=== PATIENT | female | born 1950 | race Caucasian/White ===

== ENCOUNTER 2021-04-21 20:48 | Emergency (ER) | payer MEDICARE, SELFPAY ==
[2021-04-21 20:49] VITALS: BP 175/107; PULSE 85; RESP 20; TEMP 36.6; O2SAT 97; BMI 30.9
[2021-04-21 20:50] VITALS: BP 175/107; PULSE 85; RESP 20; TEMP 36.6; O2SAT 97
[2021-04-21 21:50] VITALS: BP 175/107; PULSE 85; RESP 20; TEMP 36.6; O2SAT 97
--- NOTE | 2021-04-21 21:56 | EKG12_ITS ---
Test Reason : DYSRHYTHMIA Blood Pressure : / mmHG Vent. Rate : 076 BPM Atrial Rate : 076 BPM P-R Int : 160 ms QRS Dur : 128 ms QT Int : 412 ms P-R-T Axes : 059 -31 011 degrees QTc Int : 463 ms Normal sinus rhythm Left axis deviation Right bundle branch block Abnormal ECG Confirmed by JR CARRANZA, LAURENT ([id number]), manuscript editor AYSHA FALK ([id number]) on 04/24/2021 1:39:06 PM Referred By: SHOLA Confirmed By:HCARLES NORRIS MD
--- NOTE | 2021-04-21 22:10 | CT_ITS ---
We are attempting to reach an attending provider to discuss findings. An addendum with communication details will be sent when the communication is complete. STUDY: CT BRAIN WITHOUT CONTRAST REASON FOR EXAM: Female, 70 years old. Stroke RADIATION DOSAGE (If Supplied By Facility): CTDIvol = ( 44.99 ) mGy, DLP = ( 779.24 ) mGycm TECHNIQUE: Transaxial CT imaging of the brain was performed without administration of intravenous contrast material. Individualized dose optimization techniques were used for this CT. COMPARISON: 03/23/2016 FINDINGS: Normal soft tissue structures. Normal calvarium. Normal size ventricles and extra-axial spaces for the patient''s age. Normal white matter tracts of the cerebral hemispheres. Normal basal ganglia and thalami. Normal brainstem. Normal cerebellum. There is no intracranial hemorrhage. There are no findings of an acute ischemic infarction. Normal visualized paranasal sinuses. CT/Brain/Head without Contrast IMPRESSION: No intracranial acute abnormal finding. Electronically Signed: Jewel Chadwick MD at 22:35 EDT Tel , Service support ,
[2021-04-21 22:12] LABS: Absolute Lymphocyte Count 3.11 X10^3/uL (0.83-4.51); Absolute Neutrophil Count 2.6 X10^3/uL (2.0-7.7); Basophil# 0.04 X10^3/uL; Basophil% 0.6 % (0-1); Eosinophil# 0.19 X10^3/uL; Eosinophils% 2.9 % (0-5); Hematocrit 39.3 % (37-47); Hemoglobin 12.3 g/dL (12.0-15.0); Lymphocyte # 3.11 X10^3/ul (0.83-4.51); Lymphocyte % 46.8 % (19-41); Mean Corp Hgb Conc 31.3 g/dL (32-36); Mean Corpuscular Hgb 28.4 pg (27.0-32.0); Mean Corpuscular Volume 90.8 fL (81-99); Mean Platelet Vol. 11.4 fl (6.2-12.0); Monocyte% 10.5 % (0-10); NRBC Flagged by Analyzer 0 % (0-5); Neutrophil # 2.58 X10^3/uL (2.7-7.7); Neutrophil % 38.7 % (47-70); Platelet Count 225 K/mm3 (150-450); RBC Distribution Width CV 13.2 % (11.6-14.6); RBC Distribution Width SD 43.8 fl (35.1-43.9); Red Blood Count 4.33 M/mm3 (4.2-5.4); White Blood Count 6.7 K/mm3 (4.4-11.0)
[2021-04-21 22:26] LABS: ALB/GLOB Ratio 0.9 RATIO (0.9-2.4); AST(SGOT) 62 U/L (15-37); Alanine Aminotransfer ALT/SGPT 75 U/L (13-56); Albumin, Serum 3.7 g/dL (3.2-5.0); Alkaline Phosphatase 85 U/L (45-117); Anion Gap 5 (5-15); BUN 19 mg/dL (7-18); BUN/Creat Ratio 24.4 RATIO (10-20); Calcium,Total 9.1 mg/dL (8.5-10.1); Chloride 107 mmol/L (98-107); Creatinine, Serum 0.78 mg/dL (0.55-1.02); EST Glomerular Filtration Rate 78 mL/min (>60); Est Glom Filt Rate - Afr Amer 94 mL/min (>60); Globulin 4.1 g/dL (2.2-4.2); Glucose 127 mg/dL (74-106); Potassium 3.9 mmol/L (3.5-5.1); Protein, Total 7.8 g/dL (6.4-8.2); Sodium Level 140 mmol/L (136-145)
[2021-04-21 22:35] LABS: Bacteria 0 SEEN /hpf (None Seen); Mucous, Urine 0 SEEN /hpf (<or=2+); Red Blood Cells-Urine 0 SEEN /hpf (0-5)
[2021-04-21 22:36] LABS: Color, Urine Yellow (Yellow); Glucose, Dipstick Normal (Normal); Ketone-Dipstick Negative (Negative); Leukocyte Esterase-Dipstick 25 /ul (Negative); Nitrite-Dipstick Negative (Negative); Occult Blood-Urine Negative /ul (Negative); Protein-Dipstick Negative (Negative); Specific Gravity, Urine 1.015 (1.002-1.030); Urine Bilirubin Dipstick Negative (Negative); Urine Clarity Clear (Clear); Urine Urobilinogen Normal (Normal)
[2021-04-21 22:43] LABS: Squamous Epithelial Cells - UA 0-5 SEEN /hpf (5-10); White Blood Cells 0-5 SEEN /hpf (0-5)
--- NOTE | 2021-04-21 23:57 | EDS_ITS ---
HPI History of Present Illness Chief Complaint: Numb/Ting Informant: patient Onset/Context/Timing Onset: Today Context: Sudden Onset Timing: Intermittent and Lasts (5 to 10 minutes) Quality: Tingling Location: Left upper extremity Worsened by: Nothing Relieved by: Nothing Narrative Narrative: Patient presents with numbness and tingling to her left arm that began today. Patient is concerned that this could be coming from a possible stroke. Patient denies any weakness. Patient states the tingling only lasted proxy 5 to 10 minutes. Patient states nothing made it better nothing made it worse. Patient states she had similar symptoms 2 weeks ago and her symptoms la sted approximately 15 to 20 minutes at that time. Patient denies any headache. Patient does admit to some mild chest pain. [facility] Medical History (Updated 04/22/21 @ 00:[address] Barry Arevalo DO) Overactive bladder Home Medications ascorbic acid (vitamin C) [C-1000] 1,000 mg PO DAILY 08/22/15 [History Last Taken Unknown] multivitamin [Daily Multiple] 1 ea PO DAILY 08/22/15 [History Last Taken Unknown] oxybutynin chloride 5 mg PO DAILY 08/22/15 [History Last Taken Unknown] sertraline 50 mg PO DAILY 08/22/15 [History Last Taken Unknown] vitamin B complex 1 ea PO DAILY 08/22/15 [History Last Taken Unknown] cholecalciferol (vitamin D3) [Vitamin D] 2,000 unit PO DAILY 03/23/16 [History Last Taken Unknown] propranolol 20 mg PO BID 04/21/21 [History Last Taken Unknown] Allergy/AdvReac Type Severity Reaction Status Date / Time codeine Allergy Other Verified 04/21/21 20:51 Penicillins Allergy Itching Verified 04/21/21 20:51 Cuxxbub-Tam-Vqc Reductase Allergy Unknown Verified 04/21/21 20:51 Inhibitor Sulfa (Sulfonamide Allergy Itching Verified 04/21/21 20:51 Antibiotics) Surgical History (Updated 04/22/21 @ 00:[address] Barry Arevalo DO) H/O: hysterectomy History of bladder suspension procedure Social History Smoking Status: Never smoker ROS ROS ED Constitutional Constitutional ED: Denies chills or fever(s) Eyes Eyes: Denies blurry vision or change in vision ENT ENT ED: Denies rhinorrhea or sore throat Cardiovascular Cardiovascular: Reports chest pain; Denies palpitations Respiratory/Chest Respiratory/Chest: Denies cough or dyspnea Gastrointestinal Gastrointestinal: Denies nausea or vomiting Genitourinary Genitourinary ED: Denies dysuria or hematuria Musculoskeletal Musculoskeletal: Denies back pain or neck pain Integumentary Denies abscess or rash Neurologic Neurologic: Reports paresthesias LUE; Denies headache(s) or weakness Allergic/Immunologic Allergic/Immunologic ED: Denies mouth swelling or urticaria EXAM Physical Exam Const Vital Signs: 04/21/21 20:49 04/21/21 20:50 04/21/21 21:50 Temperature 98 F 98 F 98 F Temperature Source Temporal Temporal Temporal Pulse Rate 85 85 85 Respiratory Rate 20 H 20 H 20 H Blood Pressure 175/107 H 175/107 H 175/107 H Blood Pressure Mean 129 129 129 Pulse Ox 97 97 97 Oxygen Delivery Method Room Air Room Air Room Air 04/22/21 00:06 Temperature Temperature Source Pulse Rate 84 Respiratory Rate 15 Blood Pressure 138/80 H Blood Pressure Mean Pulse Ox 99 Oxygen Delivery Method Positive well nourished and well developed General Appearance ED: well developed HEENT Reports moist mucous membranes Neck supple and no JVD Resp normal respiratory effort and clear to auscultation bilaterally Cardio regular rate, regular rhythm and no murmurs GI normal to inspection, nondistended, normoactive bowel sounds and non-tender Palpation: soft Extremity normal to inspection General Extremety ED: Negative for edema or tenderness General Extremity: Negative for edema Neuro oriented x3, CN's II-XII intact bilaterally and no sensory deficits noted Sensorium / Orientation: alert Motor Exam: strength 5/5 throughout Psych mental status grossly normal Skin no rashes or lesions noted MDM MDM MDM Narrative Medical decision making narrative: EKG was obtained. On my interpretation, showed normal sinus rhythm with a rate of 76. There is left axis deviation. There is a right bundle branch block pattern noted. This is new compared to previous EKG dated 03/23/2016. MS interval, QRS interval, QTc interval were all normal. [place] was normal. CBC and comprehensive metabolic profile was within normal limits. Urinalysis does not show any evidence of urinary tract infection. CT scan of the brain was obtained. There is no acute intracranial abnormality noted. This was interpreted by the radiologist and reviewed by myself. Patient was still asymptomatic on reevaluation. Patient has a NIH stroke scale of 0. I feel patient is safe to be discharged home. Patient was instructed to follow-up with her primary care physician in 5 to 7 days. Patient was instructed to continue with her MRI as an outpatient. Patient understood and was agreeable with the plan. All questions were answered. Lab Data Labs: Laboratory Results - last 24 hr 04/21/21 04/21/21 04/21/21 21:03 21:03 22:30 WBC 6.7 RBC 4.33 Hgb 12.3 Hct 39.3 MCV 90.8 MCH 28.4 MCHC 31.3 L RDW Std Deviation 43.8 RDW Coeff of Fercho 13.2 Plt Count 225 MPV 11.4 Immature Gran % (Auto) 0.500 Neut % (Auto) 38.7 L Lymph % (Auto) 46.8 H [place] % (Auto) 10.5 H Eos % (Auto) 2.9 Baso % (Auto) 0.6 Absolute Neuts (auto) 2.6 Absolute Lymphs (auto) 3.11 Nucleated RBC % 0 Sodium 140 Potassium 3.9 Chloride 107 Carbon Dioxide 28.0 Anion Gap 5 BUN 19 H Creatinine 0.78 Estim Creat Clear Calc 46.50 Est GFR (MDRD) Af Amer 94 Est GFR (MDRD) Non-Af 78 BUN/Creatinine Ratio 24.4 H Glucose 127 H Calcium 9.1 Total Bilirubin 0.20 AST 62 H ALT 75 H Alkaline Phosphatase 85 Total Protein 7.8 Albumin 3.7 Globulin 4.1 Albumin/Globulin Ratio 0.9 Urine Color Yellow Urine Clarity Clear Urine pH 6.0 Ur Specific [place] 1.015 Urine Protein Negative Urine Glucose (UA) Normal Urine Ketones Negative Urine Occult Blood Negative Urine Nitrite Negative Urine Bilirubin Negative Urine Urobilinogen Normal Ur Leukocyte Esterase 25 H Urine RBC 0 SEEN Urine WBC 0-5 SEEN Ur Squamous Epith Cells 0-5 SEEN Urine Bacteria 0 SEEN Urine Mucus 0 SEEN Radiography Diagnostic Testing: Radiology Impression Brain CT 04/21/21 22:10 IMPRESSION: No intracranial acute abnormal finding. Electronically Signed: Jewel Chadwick MD at 22:35 EDT Tel , Service support , ADDENDUM: 04/21/21 2300 IMPRESSION: No intracranial acute abnormal finding. N.B. : The above Results were Read Back by Jewel Chadwick MD to Barry Calderon- DO ROXANA, and understanding confirmed on 04/21/2021 22:52:51 (ET). Electronically Signed: Jewel Chadwick MD at 22:35 EDT Tel , Service support , EKG Initial EKG: Attestation: I personally reviewed and interpreted this EKG as follows: Interpretation: Sinus Rhythm (76), No Acute Injury Pattern and RBBB Comments: Left axis deviation Prior EKG tracings: available for review Prior: Changed (There is a new right bundle branch block compared to previous EKG dated 03/23/2016.) Discharge Plan Triage Chief Complaint: Numb/Ting ED Provider: Barry Arevalo Dx/Rx/DC Orders Clinical Impression: Arm paresthesia, left Instructions: ED Paraesthesias Prescriptions: No Action multivitamin [Daily Multiple] 1 EACH tablet 1 ea PO DAILY RF: 0 ascorbic acid (vitamin C) [C-1000] 1,000 MG tablet 1,000 mg PO DAILY RF: 0 oxybutynin chloride 5 MG tablet 5 mg PO DAILY RF: 0 sertraline 50 MG tablet 50 mg PO DAILY RF: 0 vitamin B complex 1 EACH capsule 1 ea PO DAILY RF: 0 cholecalciferol (vitamin D3) [Vitamin D3] 1,000 UNIT tablet 2,000 unit PO DAILY RF: 0 propranolol 20 mg tablet 20 mg PO BID RF: 0 Primary Care Provider: Eulalio Healy Referrals: Eulalio Healy MD [Primary Care Provider] - 3-5 Days Disposition Disposition: Home, Self Care Discharge Date/Time: 04/22/21 00:07
[2021-04-22 00:06] VITALS: BP 138/80; PULSE 84; RESP 15; O2SAT 99
== END 2021-04-22 00:07 | disposition home or self-care (01) ==
PROVIDERS: Emergency Provider Emergency Medicine; PCP Family Medicine
DX: R20.2 Paresthesia of skin (principal); I45.10 Unspecified right bundle-branch block; R07.9 Chest pain, unspecified; N32.81 Overactive bladder
CPT/HCPCS: 70450; 80053; 81001; 85025; 93005; 99284; A4216

== ENCOUNTER 2022-03-29 08:58 | Emergency (ER) | payer MEDICARE, SELFPAY ==
[2022-03-29 08:59] VITALS: BP 199/90; PULSE 72; RESP 12; TEMP 35.7; O2SAT 94; BMI 33.5
--- NOTE | 2022-03-29 09:00 | ED.RN ---
per Dr. Arevalo do not call stroke alert.
[2022-03-29 09:01] VITALS: BMI 33.5
--- NOTE | 2022-03-29 09:18 | EX.ED.DYSGE1 ---
HPI History of Present Illness Chief Complaint: Neuro S/Sx Informant: patient Onset/Context/Timing Onset: Today (Approximately 90 minutes prior to arrival) Context: Sudden Onset Timing: Continuous Quality: Tingling Location: Right upper and lower extremities Worsened by: Nothing Relieved by: Nothing Narrative Narrative: Patient presents with numbness and tingling that began approximately 90 minutes prior to arrival. Patient states it starts in her right upper extremity but also goes into her right lower extremity. Patient denies any weakness. Patient denies any visual changes. Patient denies any difficulty breathing or difficulty swallowing. Patient states nothing makes it better and nothing makes it worse. Patient denies any headaches. Patient denies any nausea or vomiting. [facility] Medical History Overactive bladder Home Medications ascorbic acid (vitamin C) 1,000 mg tablet (C-1000) 1,000 mg PO DAILY 08/22/15 [History Last Taken Unknown] multivitamin (Daily Multiple tablet) 1 ea PO DAILY 08/22/15 [History Last Taken Unknown] oxybutynin chloride 5 mg tablet 5 mg PO DAILY 08/22/15 [History Last Taken Unknown] sertraline 50 mg tablet 50 mg PO DAILY 08/22/15 [History Last Taken Unknown] vitamin B complex 1 ea PO DAILY 08/22/15 [History Last Taken Unknown] cholecalciferol (vitamin D3) 25 mcg (1,000 unit) tablet (Vitamin D3) 2,000 unit PO DAILY 03/23/16 [History Last Taken Unknown] propranolol 20 mg tablet 20 mg PO BID 04/21/21 [History Last Taken Unknown] Allergy/AdvReac Type Severity Reaction Status Date / Time codeine Allergy Other Verified 04/21/21 20:51 Penicillins Allergy Itching Verified 04/21/21 20:51 Bzerudw-RYU-MdQ Reductase Allergy Unknown Verified 04/21/21 20:51 Inhibitor [Cvxajvh-Uhe-Jdo Reductase Inhibitor] Sulfa (Sulfonamide Allergy Itching Verified 04/21/21 20:51 Antibiotics) Surgical History H/O: hysterectomy History of bladder suspension procedure Social History Smoking Status: Never smoker ROS ROS ED Constitutional Constitutional ED: Denies chills or fever(s) Eyes Eyes: Denies blurry vision or change in vision ENT ENT ED: Denies rhinorrhea or sore throat Cardiovascular Cardiovascular: Denies chest pain or palpitations Respiratory/Chest Respiratory/Chest: Denies cough or dyspnea Gastrointestinal Gastrointestinal: Denies nausea or vomiting Genitourinary Genitourinary ED: Denies dysuria or hematuria Musculoskeletal Musculoskeletal: Denies back pain or neck pain Integumentary Denies abscess or rash Neurologic Neurologic: Reports paresthesias; Denies headache(s) or weakness Allergic/Immunologic Allergic/Immunologic ED: Denies mouth swelling or urticaria EXAM Physical Exam Const Vital Signs: 03/29/22 08:59 Temperature 96.2 F L Temperature Source Temporal Pulse Rate 72 Respiratory Rate 12 Blood Pressure 199/90 H Blood Pressure Mean 126 Pulse Ox 94 Oxygen Delivery Method Room Air Positive well nourished and well developed General Appearance ED: well developed HEENT Reports moist mucous membranes Neck supple and no JVD Resp normal respiratory effort and clear to auscultation bilaterally Cardio regular rate, regular rhythm and no murmurs GI normal to inspection, nondistended, normoactive bowel sounds and non-tender Palpation: soft Extremity normal to inspection General Extremety ED: Negative for edema or tenderness General Extremity: Negative for edema Neuro oriented x3, CN's II-XII intact bilaterally and no sensory deficits noted Sensorium / Orientation: alert Motor Exam: strength 5/5 throughout Psych mental status grossly normal Skin no rashes or lesions noted MDM MDM MDM Narrative Medical decision making narrative: EKG was obtained. On my interpretation, it showed a normal sinus rhythm with a rate of 66. [place] interval and QTc intervals were normal. QRS interval was slightly prolonged at 128 ms. There is a right bundle branch block pattern noted. [place] was normal. There are no acute ST or T wave changes. CT scan of the brain was obtained. There is no acute intracranial abnormality. This was interpreted by the radiologist and reviewed by myself. CBC was within normal limits. PT with INR and PTT were within normal limits. Comprehensive metabolic profile was essentially within normal limits. Urinalysis does not show any evidence of urinary tract infection. 5. 2-hour repeat high-sensitivity troponin was normal at 4. Patient was advised of the findings. Patient was instructed to follow-up with her primary care physician in 3 to 5 days. Patient understood and was agreeable with the plan. All questions were answered. Lab Data Attestation: I reviewed the patient's lab results. Labs: Laboratory Results - last 24 hr 03/29/22 03/29/22 03/29/22 09:00 09:00 09:00 WBC 6.5 RBC 4.48 Hgb 12.9 Hct 40.4 MCV 90.2 MCH 28.8 MCHC 31.9 L RDW Std Deviation 42.5 RDW Coeff of Fercho 13.0 Plt Count 234 MPV 10.9 Immature Gran % (Auto) 0.500 Neut % (Auto) 38.5 L Lymph % (Auto) 46.8 H [place] % (Auto) 10.1 H Eos % (Auto) 3.2 Baso % (Auto) 0.9 Absolute Neuts (auto) 2.5 Absolute Lymphs (auto) 3.06 Nucleated RBC % 0 PT 13.3 INR 1.0 APTT 34.7 Sodium 138 Potassium 4.1 Chloride 104 Carbon Dioxide 32.0 Anion Gap 2 L BUN 16 Creatinine 0.72 Estim Creat Clear Calc 45.85 Est GFR (MDRD) Af Amer 104 Est GFR (MDRD) Non-Af 86 BUN/Creatinine Ratio 22.3 H Glucose 121 H Calcium 9.8 Total Bilirubin 0.50 AST 58 H ALT 67 H Alkaline Phosphatase 81 Troponin I High Sens 5 Total Protein 8.0 Albumin 3.7 Globulin 4.3 H Albumin/Globulin Ratio 0.9 Urine Color Urine Clarity Urine pH Ur Specific [place] Urine Protein Urine Glucose (UA) Urine Ketones Urine Occult Blood Urine Nitrite Urine Bilirubin Urine Urobilinogen Ur Leukocyte Esterase Urine RBC Urine WBC Ur Squamous Epith Cells Urine Bacteria Urine Mucus POC Glucose 03/29/22 03/29/22 03/29/22 09:05 09:38 12:05 WBC RBC Hgb Hct MCV MCH MCHC RDW Std Deviation RDW Coeff of Fercho Plt Count MPV Immature Gran % (Auto) Neut % (Auto) Lymph % (Auto) [place] % (Auto) Eos % (Auto) Baso % (Auto) Absolute Neuts (auto) Absolute Lymphs (auto) Nucleated RBC % PT INR APTT Sodium Potassium Chloride Carbon Dioxide Anion Gap BUN Creatinine Estim Creat Clear Calc Est GFR (MDRD) Af Amer Est GFR (MDRD) Non-Af BUN/Creatinine Ratio Glucose Calcium Total Bilirubin AST ALT Alkaline Phosphatase Troponin I High Sens 4 Total Protein Albumin Globulin Albumin/Globulin Ratio Urine Color Yellow Urine Clarity Clear Urine pH 6.5 Ur Specific [place] 1.010 Urine Protein Negative Urine Glucose (UA) Normal Urine Ketones Negative Urine Occult Blood Negative Urine Nitrite Negative Urine Bilirubin Negative Urine Urobilinogen Normal Ur Leukocyte Esterase 25 H Urine RBC 0 SEEN Urine WBC 0-5 SEEN Ur Squamous Epith Cells 0-5 SEEN Urine Bacteria 0 SEEN Urine Mucus 0 SEEN POC Glucose 118 H Radiography Diagnostic Testing: Clinical Impression(s) from Imaging Studies Brain CT 03/29/22 10:12 IMPRESSION: Normal unenhanced CT scan of the brain. Electronically Signed: Dejan Garcia MD at 10:30 EDT , EKG Initial EKG: Attestation: I personally reviewed and interpreted this EKG as follows: Interpretation: Sinus Rhythm (66) and RBBB Prior EKG tracings: available for review Prior: Unchanged (04/21/2021) Discharge Plan Triage Chief Complaint: Neuro S/Sx ED Provider: Barry Arevalo Dx/Rx/DC Orders Clinical Impression: Arm paresthesia, right, Right leg paresthesias, HTN (hypertension) Instructions: ED Paraesthesias Prescriptions: No Action multivitamin [Daily Multiple] 1 EACH tablet 1 ea PO DAILY Label Comments: Supplement ascorbic acid (vitamin C) [C-1000] 1,000 MG tablet 1,000 mg PO DAILY Label Comments: Vitamin C supplement oxybutynin chloride 5 MG tablet 5 mg PO DAILY Label Comments: Urination sertraline 50 MG tablet 50 mg PO DAILY Label Comments: Depression/anxiety vitamin B complex 1 EACH capsule 1 ea PO DAILY Label Comments: Vitamin B supplement cholecalciferol (vitamin D3) [Vitamin D3] 1,000 UNIT tablet 2,000 unit PO DAILY propranolol 20 mg tablet 20 mg PO BID Label Comments: TAKE 1 TABLET BY MOUTH TWICE A DAY Primary Care Provider: Eulalio Healy Referrals: Eulalio Healy MD [Primary Care Provider] - 5-7 Days Disposition Disposition: Home, Self Care
--- NOTE | 2022-03-29 09:21 | EKG12_ITS ---
Test Reason : Neuro Blood Pressure : / mmHG Vent. Rate : 066 BPM Atrial Rate : 066 BPM P-R Int : 170 ms QRS Dur : 128 ms QT Int : 460 ms P-R-T Axes : 042 -28 001 degrees QTc Int : 482 ms Normal sinus rhythm Right bundle branch block Minimal voltage criteria for LVH, may be normal variant ( R in aVL ) Abnormal ECG Confirmed by JR CARRANZA, LAURENT ([id number]), editor in chief newspaper AYSHA FALK ([id number]) on 04/02/2022 11:22:04 AM Referred By: Irina Confirmed By:CHARLES NORRIS MD
[2022-03-29 09:25] LABS: Bedside Glucose 118 mg/dL (74-106)
[2022-03-29 09:33] LABS: Absolute Lymphocyte Count 3.06 X10^3/uL (0.83-4.51); Absolute Neutrophil Count 2.5 X10^3/uL (2.0-7.7); Basophil# 0.06 X10^3/uL; Basophil% 0.9 % (0-1); Eosinophil# 0.21 X10^3/uL; Eosinophils% 3.2 % (0-5); Hematocrit 40.4 % (37-47); Hemoglobin 12.9 g/dL (12.0-15.0); Lymphocyte # 3.06 X10^3/ul (0.83-4.51); Lymphocyte % 46.8 % (19-41); Mean Corp Hgb Conc 31.9 g/dL (32-36); Mean Corpuscular Hgb 28.8 pg (27.0-32.0); Mean Corpuscular Volume 90.2 fL (81-99); Mean Platelet Vol. 10.9 fl (6.2-12.0); Monocyte# 0.66 X10^3/uL; Monocyte% 10.1 % (0-10); NRBC Flagged by Analyzer 0 % (0-5); Neutrophil # 2.52 X10^3/uL (2.7-7.7); Neutrophil % 38.5 % (47-70); Platelet Count 234 K/mm3 (150-450); RBC Distribution Width SD 42.5 fl (35.1-43.9); Red Blood Count 4.48 M/mm3 (4.2-5.4); White Blood Count 6.5 K/mm3 (4.4-11.0)
[2022-03-29 09:41] LABS: Prothrombin Time (Protime)PT. 13.3 SECONDS (11.7-14.9)
[2022-03-29 09:42] LABS: Partial Thromboplast Time 34.7 Seconds (24.1-36.2)
[2022-03-29 09:51] LABS: Bacteria 0 SEEN /hpf (None Seen); Mucous, Urine 0 SEEN /hpf (<or=2+); Red Blood Cells-Urine 0 SEEN /hpf (0-5)
[2022-03-29 09:52] LABS: Color, Urine Yellow (Yellow); Glucose, Dipstick Normal (Normal); Ketone-Dipstick Negative (Negative); Leukocyte Esterase-Dipstick 25 /ul (Negative); Nitrite-Dipstick Negative (Negative); Occult Blood-Urine Negative /ul (Negative); Protein-Dipstick Negative (Negative); Urine Bilirubin Dipstick Negative (Negative); Urine Clarity Clear (Clear); Urine Urobilinogen Normal (Normal); Urine pH 6.5 (5.0 - 8.0)
[2022-03-29 09:54] LABS: ALB/GLOB Ratio 0.9 RATIO (0.9-2.4); AST(SGOT) 58 U/L (15-37); Alanine Aminotransfer ALT/SGPT 67 U/L (13-56); Albumin, Serum 3.7 g/dL (3.2-5.0); Alkaline Phosphatase 81 U/L (45-117); Anion Gap 2 (5-15); BUN 16 mg/dL (7-18); BUN/Creat Ratio 22.3 RATIO (10-20); Calcium,Total 9.8 mg/dL (8.5-10.1); Chloride 104 mmol/L (98-107); Creatinine, Serum 0.72 mg/dL (0.55-1.02); EST Glomerular Filtration Rate 86 mL/min (>60); Est Glom Filt Rate - Afr Amer 104 mL/min (>60); Estimated Creatinine Clearance 45.85 ml/min; Globulin 4.3 g/dL (2.2-4.2); Glucose 121 mg/dL (74-106); Potassium 4.1 mmol/L (3.5-5.1); Sodium Level 138 mmol/L (136-145); Troponin-I HS (w/2H Reflex) 5 pg/mL (3.0-54.0)
[2022-03-29 10:10] LABS: Squamous Epithelial Cells - UA 0-5 SEEN /hpf (5-10); White Blood Cells 0-5 SEEN /hpf (0-5)
--- NOTE | 2022-03-29 10:12 | CT_ITS ---
STUDY: CT BRAIN WITHOUT CONTRAST REASON FOR EXAM: Female, 71 years old. Numbness RADIATION DOSAGE (If Supplied By Facility): CTDIvol = ( 44.99 ) mGy, DLP = ( 796.11 ) mGycm TECHNIQUE: Transaxial CT imaging of the brain was performed without administration of intravenous contrast material. Individualized dose optimization techniques were used for this CT. COMPARISON: Comparison is made with prior study 04/21/2021. FINDINGS: Normal soft tissue structures. Normal calvarium. Normal size ventricles and extra-axial spaces for the patient''s age. Normal white matter tracts of the cerebral hemispheres. Normal basal ganglia and thalami. Normal brainstem. Normal cerebellum. There is no intracranial hemorrhage. There are no findings of an acute ischemic infarction. Normal visualized paranasal sinuses. CT/Brain/Head without Contrast IMPRESSION: Normal unenhanced CT scan of the brain. Electronically Signed: Dejan Garcia MD at 10:30 EDT ,
[2022-03-29 11:28] LABS: Reflex Troponin-HS? (from REC) Y
[2022-03-29 12:28] LABS: Troponin-I HS 4 pg/mL (3.0-54.0)
[2022-03-29 13:03] VITALS: BP 149/90; PULSE 78; RESP 16; O2SAT 97; O2SAT 98
== END 2022-03-29 13:06 | disposition home or self-care (01) ==
PROVIDERS: Emergency Provider Emergency Medicine; PCP Family Medicine; Visit Provider Emergency Medicine
DX: R20.2 Paresthesia of skin (principal); I10 Essential (primary) hypertension
CPT/HCPCS: 70450; 80053; 81001; 82962; 84484; 85025; 85610; 85730; 93005; 99284; A4216

== ENCOUNTER 2022-04-03 18:18 | Inpatient (IN) | payer MEDICARE, SELFPAY ==
[2022-04-03 18:37] VITALS: BP 134/71; PULSE 68; RESP 16; TEMP 37.1; O2SAT 96; BMI 32.9
[2022-04-03 19:14] VITALS: BP 130/66; PULSE 71; RESP 18; TEMP 36.8; O2SAT 95
[2022-04-03] MEDS: Senna/Docusate Sodium 1 Tablet 2 TABLET PO (21:41)
[2022-04-03] MEDS: Sertraline 50 MG Tablet 25 MG PO (21:41)
[2022-04-03] MEDS: Montelukast 10 MG Tablet PO (21:42)
[2022-04-03] MEDS: Atorvastatin Calcium 40 MG Tablet PO (21:43)
[2022-04-03] MEDS: Gabapentin 300 MG Capsule PO (21:45)
[2022-04-03 22:00] VITALS: PULSE 78; RESP 16; O2SAT 95
[2022-04-04 05:44] LABS: Absolute Lymphocyte Count 3.39 X10^3/uL (0.83-4.51); Absolute Neutrophil Count 2.9 X10^3/uL (2.0-7.7); Basophil# 0.04 X10^3/uL; Basophil% 0.5 % (0-1); Eosinophil# 0.19 X10^3/uL; Eosinophils% 2.6 % (0-5); Hematocrit 35.4 % (37-47); Hemoglobin 11.2 g/dL (12.0-15.0); Lymphocyte # 3.39 X10^3/ul (0.83-4.51); Lymphocyte % 46.1 % (19-41); Mean Corp Hgb Conc 31.6 g/dL (32-36); Mean Corpuscular Hgb 29.6 pg (27.0-32.0); Mean Corpuscular Volume 93.4 fL (81-99); Mean Platelet Vol. 10.4 fl (6.2-12.0); Monocyte# 0.77 X10^3/uL; Monocyte% 10.5 % (0-10); NRBC Flagged by Analyzer 0 % (0-5); Neutrophil # 2.94 X10^3/uL (2.7-7.7); Platelet Count 210 K/mm3 (150-450); RBC Distribution Width CV 12.9 % (11.6-14.6); RBC Distribution Width SD 43.8 fl (35.1-43.9); Red Blood Count 3.79 M/mm3 (4.2-5.4); White Blood Count 7.4 K/mm3 (4.4-11.0)
[2022-04-04 06:18] LABS: ALB/GLOB Ratio 0.8 RATIO (0.9-2.4); AST(SGOT) 53 U/L (15-37); Alanine Aminotransfer ALT/SGPT 62 U/L (13-56); Albumin, Serum 3.2 g/dL (3.2-5.0); Alkaline Phosphatase 76 U/L (45-117); Anion Gap 4 (5-15); BUN 19 mg/dL (7-18); BUN/Creat Ratio 24.3 RATIO (10-20); Calcium,Total 9.4 mg/dL (8.5-10.1); Chloride 105 mmol/L (98-107); Creatinine, Serum 0.78 mg/dL (0.55-1.02); EST Glomerular Filtration Rate 77 mL/min (>60); Est Glom Filt Rate - Afr Amer 94 mL/min (>60); Estimated Creatinine Clearance 45.85 ml/min; Globulin 3.9 g/dL (2.2-4.2); Glucose 121 mg/dL (74-106); Magnesium 2.1 mg/dL (1.6-2.6); Phosphorus 3.7 mg/dL (2.5-4.9); Protein, Total 7.1 g/dL (6.4-8.2); Sodium Level 139 mmol/L (136-145)
[2022-04-04] MEDS: Gabapentin 300 MG Capsule PO ×3 (06:24→21:31)
[2022-04-04 07:20] VITALS: O2SAT 94
[2022-04-04 07:53] VITALS: BP 140/54; PULSE 72; RESP 16; TEMP 36; O2SAT 95
[2022-04-04] MEDS: Fluticasone 0.05% 1 SPRAY NASAL.SRY 2 SPRAY NASAL (08:22)
[2022-04-04] MEDS: Ascorbic Acid 500 MG Tablet PO (08:24)
[2022-04-04] MEDS: Propranolol LA 60 MG Capsule 120 MG PO (08:24)
[2022-04-04] MEDS: Cholecalciferol (VIT D3) 25 MCG TABLET (1,000 UNITS) PO (08:24)
[2022-04-04] MEDS: Tolterodine Tartrate 4 MG CAP.SA PO (08:24)
[2022-04-04] MEDS: Multivitamins,Therapeutic Tablet 1 TABLET PO (08:24)
[2022-04-04] MEDS: Aspirin 81 MG TAB.CHEW PO (08:24)
[2022-04-04] MEDS: Senna/Docusate Sodium 1 Tablet 2 TABLET PO (08:25)
[2022-04-04] MEDS: amLODIPine 2.5 MG Tablet PO (08:25)
[2022-04-04] MEDS: Clopidogrel Bisulfate 75 MG Tablet PO (08:25)
[2022-04-04] MEDS: NYSTATIN 500,000 UNIT/5 ML UDC 500000 UNIT PO ×4 (08:26→21:32)
[2022-04-04] MEDS: Sertraline 50 MG Tablet 25 MG PO ×2 (08:30→21:30)
[2022-04-04] MEDS: Famotidine 20 MG Tablet 40 MG PO (08:32)
--- NOTE | 2022-04-04 09:21 | HP.PCM_ITS ---
[facility] - General General Date of Admission: 04/03/22 Date of Service: 04/04/22 Chief Complaint: Post Stroke debility. HPI Lynda MEDINA, is a 71 YO F with a PMH of hypertension, hyperlipidemia, bipolar 1 disorder, depression and obesity who presented to the [facility] ED on 03/29/2022 complaining of right side numbness in the right face, right arm and right leg. She denied weakness at that time. Noncontrast CT brain was normal. Lab was unremarkable and she was discharged home and instructed to follow-up with her primary care physician. The following morning she was having difficulty ambulating and had weakness in her right hand. She also had difficulty swallowing and felt as if her medications got stuck on the right side of her throat. She was seen at [facility] ED. NIHSS was 7. CTA of the head/neck and brain CT revealed 17% stenosis of the cervical right internal carotid artery and 33% stenosis of the cervical left internal carotid artery. Cervical vertebral arteries were patent. She had bilateral MCA, bilateral PROFESSIONAL SERVICES CONSULTANT and right PICA stenoses. Teleneurology was consulted and she was felt to be outside the window for tPA. She was admitted to the hospital and started on dual antiplatelet therapy. Significant lab included an elevated hemoglobin A1c at 6.3, elevated triglycerides at 356, low HDL at 33 and an LDL of 155. She has listed statins as an allergy due to rash. she was willing to try atorvastatin and was started on 40 mg on 03/31/22. She was evaluated by PT/OT/ST and admission to acute rehab was recommended. She was transferred to the acute rehab unit at [facility] on 04/03/2022 for 3 hours of therapy daily to restore function/independence at or near her level prior to the recent stroke. All lab from this AM was personally reviewed. Hemoglobin is 11.2 which is down from 12.9 on 03/29/2022. White blood cell count and platelets are within normal limits. Potassium is 4 and the sodium is within normal limits. The BUN is elevated at 19 with a creatinine of 0.78 which is stable. Estimated creatinine clearance is 45.85 and the GFR is 77. Transaminases are mildly increased with an AST of 53 and an ALT of 62 and this is chronic for her. Alk phos and total b ilirubin are within normal limits. Magnesium is 2.1 and the phosphorus is normal. ECHO report was not sent with the other paperwork from [place] so will request it. Tells me that she has not been able to exercise for the past year due to radicular pain in the LUE. She has not been doing any walking for exercise for the past 3 years. Has gained weight over the past year and her BP has not been controlled. [facility] Medical History (Updated 04/04/22 @ 12:[address] Bryanna Randall, ) Bipolar 1 disorder Depression GERD (gastroesophageal reflux disease) Hypertension Overactive bladder Radicular pain in left arm Home Medications ascorbic acid (vitamin C) 1,000 mg tablet (C-1000) 500 mg PO DAILY supplement 08/22/15 [History Last Taken Unknown] multivitamin (Daily Multiple tablet) 1 ea PO DAILY supplement 08/22/15 [History Last Taken Unknown] sertraline 50 mg tablet 25 mg PO BID treat depression 08/22/15 [History Last Taken Unknown] cholecalciferol (vitamin D3) 25 mcg (1,000 unit) tablet (Vitamin D3) 1,000 unit PO DAILY supplement 03/23/16 [History Last Taken Unknown] propranolol 20 mg tablet 120 mg PO DAILY HTN 04/21/21 [History Last Taken Unknown] acetaminophen 325 mg tablet (Tylenol) 1,000 mg PO Q6H PRN Pain (Scale Score 1- 10) 04/03/22 [History Last Taken Unknown] amlodipine 2.5 mg tablet (Norvasc) 2.5 mg DAILY high blood presuure 04/03/22 [History Last Taken Unknown] aspirin 81 mg tablet 81 mg PO DAILY anti-platelet 04/03/22 [History Last Taken Unknown] atorvastatin 40 mg tablet 40 mg PO DAILY HDL 04/03/22 [History Last Taken Unknown] clopidogrel 75 mg tablet 75 mg PO DAILY antiplatelet 04/03/22 [History Last Taken Unknown] coenzyme Q10 200 mg capsule (Co Q-10) 200 mg PO DAILY supplement 04/03/22 [History Last Taken Unknown] famotidine 40 mg tablet 40 mg PO DAILY GERD 04/03/22 [History Last Taken Unknown] fluticasone propionate 50 mcg/actuation nasal spray,suspension 2 spray intranasal DAILY allergy 04/03/22 [History Last Taken Unknown] gabapentin 300 mg tablet 300 mg PO TID nerve pain 04/03/22 [History Last Taken Unknown] montelukast 10 mg tablet (Singulair) 10 mg PO QHS asthma 04/03/22 [History Last Taken Unknown] tolterodine 4 mg capsule,extended release 24 hr (Detrol LA) 4 mg PO Q24H urinary retention 04/03/22 [History Last Taken Unknown] Allergy/AdvReac Type Severity Reaction Status Date / Time codeine Allergy Other Verified 04/21/21 20:51 Penicillins Allergy Itching Verified 04/21/21 20:51 Tzylpmf-JKE-CkM Reductase Allergy Unknown Verified 04/21/21 20:51 Inhibitor [Amokcfl-Dun-Jya Reductase Inhibitor] Sulfa (Sulfonamide Allergy Itching Verified 04/21/21 20:51 Antibiotics) Family History Mother Colon cancer CAD (coronary artery disease) Grandmother Diabetes Maternal grandmother CAD (coronary artery disease) Grandfather CAD (coronary artery disease) Father CAD (coronary artery disease) Hypertension Family History no significant family his Surgical History H/O: hysterectomy History of bladder suspension procedure Social History (Updated 04/04/22 @ 09:[address] Bryanna Randall DO) household members: spouse Smoking Status: Never smoker alcohol intake: never substance use type: does not use ROS Review of Systems ROS Unobtainable: Denies due to encephalopathy, due to endotracheal tube, due to mental condition or due to mental status Constitutional Constitutional: Reports change in weight and weight gain; Denies anorexia, chills, fatigue, fever(s), night sweats or weakness Eyes Eyes: Denies blurry vision, change in vision, eye pain or loss of vision ENT HEENT: Reports dysphagia; Denies abnormal hearing, headache(s), hearing loss, nasal congestion or sore throat Cardiovascular Cardiovascular: Denies chest pain, dyspnea on exertion, edema, lightheadedness, orthopnea, palpitations, paroxysmal nocturnal dyspnea or syncope Respiratory/Chest Respiratory/Chest: Denies cough, dyspnea, shortness of breath at rest, shortness of breath with exertion or wheezing Gastrointestinal Gastrointestinal: Reports constipation; Denies abdominal pain, diarrhea, dy spepsia, hematemesis, hematochezia, nausea or vomiting Genitourinary Genitourinary: Reports other Details: She sometimes leaks a little. ; Denies dysuria, hematuria, nocturia, urinary frequency, urinary hesitancy, urinary incontinence or urinary urgency Musculoskeletal Musculoskeletal: Denies back pain, joint pain, joint swelling or neck pain Integumentary Integumentary: Denies jaundice, pruritus, rash or wounds Neurologic Neurologic: Reports abnormal gait, disequilibrium, focal weakness and par esthesias; Denies abnormal speech, confusion, dizziness, headache(s), seizures or tremor(s) Psychiatric Psychiatric: Denies anxiety, depression, homicidal ideation or suicidal ideation Endocrine Endocrinology: Denies change in body appearance, polydipsia or polyuria Hematologic/Lymphatic Hematologic/Lymphatic: Denies easy bleeding, easy bruising or lymphadenopathy Allergic/Immunologic Allergic/Immunologic: Denies rhinitis, eczemia or asthma Vital Signs Vital Signs Vital Signs: 04/03/22 18:37 04/03/22 19:14 04/03/22 22:00 Temperature 98.7 F 98.2 F Temperature Source Oral Temporal Pulse Rate 68 71 78 Respiratory Rate 16 18 16 Respiratory Effort Normal Non-Labored Respiratory Depth Normal Respiratory Pattern Normal Blood Pressure 134/71 H 130/66 H Blood Pressure Mean 92 87 Blood Pressure Source Monitor Monitor Blood Pressure Position Sitting Sitting Blood Pressure Location Right Arm Right Arm Pulse Ox 96 95 95 Oxygen Delivery Method Room Air Room Air Room Air 04/04/22 07:53 Temperature 96.8 F L Temperature Source Temporal Pulse Rate 72 Respiratory Rate 16 Respiratory Effort Respiratory Depth Respiratory Pattern Blood Pressure 140/54 H Blood Pressure Mean 82 Blood Pressure Source Monitor Blood Pressure Position Semi-Fowlers Blood Pressure Location Right Arm Pulse Ox 95 Oxygen Delivery Method Room Air Weight Weight: 191 lb 2.252 oz Body Mass Index (BMI) 32.9 Indicators for Scoring Admitted with or Primary Diagnosis of CVA/Stroke: Yes Hx of CVA/Stroke: Yes Modified [place] Score MRS Score at time of Evaluation: 3-Moderate disability NIHSS NIHSS 1a. Level of Consciousness: Alert; keenly responsive 1b. LOC Questions: Answers BOTH questions correctly. 1c. LOC Commands: Performs both tasks correctly. 2. Best Gaze: Normal 3. Visual: No visual loss 4. Facial Palsy: Minor paralysis (flattened nasolabial fold, asymmetry on smiling) 5a. Left Arm: No drift; arm holds 90 (or 45) degrees for full 10 seconds 5b. Right Arm: Drift; arm drifts downward but doesn?t hit the bed 6a. Left Leg: No drift; leg holds 30-degree position for full 5 seconds 6b. Right Leg: Drift; leg falls by the end of 5-seconds, but does not hit bed 7. Limb Ataxia: Absent 8. Sensory: [id number]-[id number] sensory loss; 9. Best Language: No aphasia; normal 10. Dysarthria: Normal 11. Extinction and Inattention: Visual, tactile, auditory, spatial, or personal inattention Total: 5 Stroke Questions Stroke Team Activated: No (She was at another facility when she had the stroke. She is now in rehab) Physical Exam Const alert, oriented x3, no apparent distress and well nourished Constitutional Narrative: sitting in the recliner at the bedside. General Appearance: cooperative and well developed HEENT normocephalic and head/scalp atraumatic Eyes PERRL and EOMs intact bilaterally Eyes Narrative: She has mild ptosis of the R upper lid which is new since the Stroke Neck supple, no JVD, No nodes and no carotid bruits General: trachea midline Resp normal respiratory effort, normal air movement and clear to auscultation bilaterally Resp Narrative: No conversational dyspnea. Effort and Inspection: Negative for tachypneic or respiratory distress Cardio regular rate, regular rhythm, S1 normal heart sound, S2 normal heart sound, no murmurs, no rub and no gallops Cardio Narrative: No ectopy GI normal to inspection, nondistended, normoactive bowel sounds, soft to palpation and non-tender GI Narrative: Obese, no guarding with palpation. Extremity Extremity Narrative: No calf tenderness. Dorsalis pedis pulses are 2+ bilaterally and sore the radial pulses. General Extremity: Negative for clubbing, cyanosis or edema Skin no rashes or lesions noted, no wounds and no jaundice General Skin Exam: no breakdown Neuro Neuro Narrative: She has mild right facial droop and mild ptosis of the right upper eyelid. She has weakness of the right face, right upper extremity and right lower extremity. No limb ataxia. She is alert and oriented x3 with no dysarthria. Thought process seems normal. Please see NIHSS scoring Psych thought process normal, cooperative and affect normal Appearance: appropriate Thought Content: No suicidality and No homicidality Results Lab / Micro Data Result Diagrams: 04/04/22 05:36 04/04/22 05:36 Labs: Laboratory Results - last 24 hr 04/04/22 05:36: WBC 7.4, RBC 3.79 L, Hgb 11.2 L, Hct 35.4 L, MCV 93.4, MCH 29.6, MCHC 31.6 L, RDW Std Deviation 43.8, RDW Coeff of Fercho 12.9, Plt Count 210, MPV 10.4, Immature Gran % (Auto) 0.300, Neut % (Auto) 40.0 L, Lymph % (Auto) 46.1 H, [place] % (Auto) 10.5 H, Eos % (Auto) 2.6, Baso % (Auto) 0.5, Absolute Neuts (auto) 2.9, Absolute Lymphs (auto) 3.39, Nucleated RBC % 0 04/04/22 05:36: Sodium 139, Potassium 4.0, Chloride 105, Carbon Dioxide 30.0, Anion Gap 4 L, BUN 19 H, Creatinine 0.78, Estim Creat Clear Calc 45.85, Est GFR (MDRD) Af Amer 94, Est GFR (MDRD) Non-Af 77, BUN/Creatinine Ratio 24.3 H, Glucose 121 H, Calcium 9.4, Phosphorus 3.7, Magnesium 2.1, Total Bilirubin 0.30, AST 53 H, ALT 62 H, Alkaline Phosphatase 76, Total Protein 7.1, Albumin 3.2, Globulin 3.9, Albumin/Globulin Ratio 0.8 L Assessment & Plan Assessment/Plan (1) Physical debility: PLAN: PT/OT/ST evaluations/therapy (2) Ischemic cerebrovascular accident (CVA): PLAN: Educated today on the goals for BP control and lipid control. Will consult the feather mixer for education in salt restriction, weight loss, consistent carbohydrate intake and low-fat diet. (3) Cerebrovascular disease: PLAN: She has multiple areas of atherosclerosis in the cerebral circulation. There is a strong FH of heart disease. Will recommend at [place] that she have a pharmacologic nuclear stress test in the next few months. (4) Right hemiparesis: (5) Facial droop due to acute cerebrovascular accident (CVA): (6) Right leg paresthesias: (7) Arm paresthesia, right: (8) Prediabetes: (9) Abnormal transaminases: (10) Dysphagia: (11) Obesity (BMI 30.0-34.9): (12) HTN (hypertension): (13) HLD (hyperlipidemia): (14) Radicular pain in left arm: PLAN: Has had 2 epidural injections and is on Gabapentin. (15) Normochromic normocytic anemia: PLAN: Will check a Hemocccult stool. PLAN: Plan PLAN PT for gait stability OT for ADL's ST for evaluation Analgesics as needed Bowel protocol Fall precautions Assess for Anxiety/Depression GI prophylaxis with famotidine....She had been on Nexium for years but it was changed to PEPCID at [place]. Tells me that the Nexium did not help and she does not think the Pepcid is working either. She had an EGD many years ago but, nothing recently. Recommended to her that she ask Dr. Healy for a referral for EGD. she has had LT GERD/heartburn and is at risk for Ma's esophagus /esophageal CA. DVT prophylaxis with Lovenox 40 mg subcu daily Follow up with Dr. Healy and neurology following DC from [facility] AM lab including CMP, CBC, Mag and Phos Obtain a copy of the ECHO report from [place]. Add consistent carb intake to the current heart healthy diet Should have repeat Lipid and liver profiles in another 5 weeks. Charges/Coding Visit Charges Inpatient E&M: 22735 Init Hosp L3
--- NOTE | 2022-04-04 09:56 | REHABEVAL_ITS ---
Admission Information Primary Diagnosis:: Post stroke debility with dysphagia, right hemiparesis and right side paresthesias. Status Changes from Prescreening?: No changes Identified Actual Problem List:: Alteration in Sleep, Mobility Impaired, Self Care Deficit, BP, Hypertension and Alteration-Leisure Activ. Potential Problem List:: DVT, Bleeding, Infection, UTI, Aspiration, Falls, Skin Integrity and Depression Risk of Complications DVT: LMWH and AUGUSTO Hose Bleeding: Monitor Lab Values, Nursing to Teach Precautions for anti-coagulation therapy., Wound, if applicable, to be assessed every shift. and Stroke patients assessed for lethargy or change in status. Infection: Clinical Staff to Monitor for S/S of infection: and S/S of infection include fever, redness, warmth, etc. Urinary Tract Infection: Monitor for frequency, burning, discomfort, or incontinence. and Nursing will obtain urine sample for urinalysis and C&S when ordered. Aspiration: Clinical staff will monitor for coughing, drooling, congestion., Speech will evaluate swallowing and dsyphasia. and Nursing will monitor patient swallowing during meals. Falls: Patient will be evaluated for Fall Precautions and Patient will be placed on Fall Precautions as indicated per protocol. Skin Breakdown: Nursing will assess skin daily using assessment tool. and Nursing will place on Skin Breakdown Precautions as indicated. Pain: Clinical staff will assess patient's pain level per protocol., Medications will be given, if needed, and the pain level reassessed. and Other methods: Massage, distraction, decrease stimulus, etc. used PRN. Plan of Care Patient requires physician specializing in physical medicine and rehab oversight to provide close medical supervision of rehab issues including: Pain Management, Sleep Problems, Bowel and Bladder, Medical and co-morbidity Management, DVT prophylaxis, Rehabilitation Leadership and Coordination of treatment team Patient needs Physical Therapy: For a minimum of 1 hour and At least 5 out of 7 days Patient needs Physical Therapy to improve:: Mobility, Strengthening, Transfers, Stretching, ROM, Endurance, Stairs, Gait and Balance Patient needs Occupational Therapy: For a minimum of 1 hour and At least 5 out of 7 days Patient needs Occupational Therapy to improve ADL's incl.: Eating, Grooming, Bathing, Dressing, Toileting, Toilet transfers, Community Reintegration, Higher functioning activities, Household tasks, Adaptive Equipment, Splinting and Other activities as determined Patient requires speech therapy: For a minimum of 1 hour and At least 5 out of 7 days Patient requires speech therapy for: Swallowing, Cognition, Language Skills and Compensatory Strategies Patient requires 24/ Rehabilitation Nursing for: Pain Issues, Identifying and preventing risk factors, Monitoring and reporting current medical conditions, Assisting with ambulation, transfer, and all ADL's, Teaching patients about disease process and medications, Family teaching, Providing safe environment, Bowel and Bladder Issues, Skin integrity and Medication Management Patient needs Warehouse Shift Supervisor/ Case Management for: Discharge Planning, Arranging Home Equipment or Services and Family Interventions Patient needs Dietary and Nutrition Services for: Adequate Nutrition, Nutritional Supplements and Nutritional Education Goals Patient will perform bed mobility at: MOD I level of assist. Patient will complete transfers from bed to chair at: MOD I level of assist. Patient will ambulate: - (500 feet at mod I with least restrictive device) Patient will complete upper body dressing at: MOD I level of assist. Patient will complete lower body dressing at: MOD I level of assist. (With adaptive equipment as needed) Patient will complete toileting at: - (Distant supervision) Patient will perform bathing at: MOD I level of assist. Patient will complete grooming at: MOD I level of assist. Patient will complete home management skills at: MOD I level of assist. Patient will achieve: - (1 curb step with supervision) Discharge Planning Pt Prognosis for Sig. Practical Improv. w/in Reasonable Time: Good Estimated Length of stay (days): 28 Anticipated D/C Destination: Home with Home Health Was Preadmission Assessment Accurate?: Yes
--- NOTE | 2022-04-04 16:14 | CASEMGMT ---
Social Work See attached assessment for completed details. This social scientist met with patient in room. Introduced self and social scientist role. Patient agreeable to speak with this social scientist. This social scientist completed PHQ-9 assessment with patient due to diagnosis of Stroke. Patient with a PHQ-9 score of 11/26. This social scientist provided patient with stroke support group brochure and encouraged patient to attend group after discharge for support from peers/individuals that are also victims of stroke. Patient reports plans to return to home with spouse. Patient spouse does work part-time outside of the house but is able to be with patient most of the time. Patient aware of team meeting on and spouse plans to attend. This social scientist educated patient on insurance update due on 04/10/2022 and no guarantee of continued stay approval. All questions answered. Social Work to continue to follow as needed. Doretha LOZANO, ADITI
[2022-04-04 19:50] VITALS: BP 143/57; PULSE 67; RESP 18; TEMP 36.7; O2SAT 92
[2022-04-04] MEDS: Montelukast 10 MG Tablet PO (21:31)
[2022-04-04] MEDS: Atorvastatin Calcium 40 MG Tablet PO (21:32)
[2022-04-05] MEDS: Acetaminophen 500 MG Tablet 1000 MG PO (00:37)
--- NOTE | 2022-04-05 03:59 | NURSING ---
REVIEWED AND AGREE WITH RESIDENCE COUNSELOR'S FUNCTIONAL ASSESSMENT AND HANDOFF CHARTING.
[2022-04-05] MEDS: Gabapentin 300 MG Capsule PO ×2 (05:14→13:24)
[2022-04-05 08:05] VITALS: O2SAT 93
[2022-04-05 08:15] VITALS: BP 132/69; PULSE 62; RESP 18; TEMP 36.4; O2SAT 97
[2022-04-05] MEDS: Fluticasone 0.05% 1 SPRAY NASAL.SRY 2 SPRAY NASAL (09:06)
[2022-04-05] MEDS: Nystatin Powder 15gm Bottle 1 APPLIC TOPICAL ×2 (09:06→20:23)
[2022-04-05] MEDS: Aspirin 81 MG TAB.CHEW PO (09:11)
[2022-04-05] MEDS: Cholecalciferol (VIT D3) 25 MCG TABLET (1,000 UNITS) PO (09:12)
[2022-04-05] MEDS: Multivitamins,Therapeutic Tablet 1 TABLET PO (09:12)
[2022-04-05] MEDS: Famotidine 20 MG Tablet 40 MG PO (09:12)
[2022-04-05] MEDS: Clopidogrel Bisulfate 75 MG Tablet PO (09:12)
[2022-04-05] MEDS: Senna/Docusate Sodium 1 Tablet 2 TABLET PO (09:12)
[2022-04-05] MEDS: Tolterodine Tartrate 4 MG CAP.SA PO (09:12)
[2022-04-05] MEDS: Ascorbic Acid 500 MG Tablet PO (09:12)
[2022-04-05] MEDS: Propranolol LA 60 MG Capsule 120 MG PO (09:12)
[2022-04-05] MEDS: Enoxaparin 40 MG/0.4 ML Syringe SC (09:13)
[2022-04-05] MEDS: Sertraline 50 MG Tablet 25 MG PO ×2 (09:13→20:21)
[2022-04-05] MEDS: amLODIPine 2.5 MG Tablet PO (09:13)
--- NOTE | 2022-04-05 13:05 | CASEMGMT ---
Social Work Team meeting held. Patient present as well as patient spouse, Pilo. Patient progressing in physical, occupational and speech therapy. Patient to continue with further care and treatment on the Rehab Unit with plan to re-team patient next week. This social sciences chair communicating that patient insurance update is due on 04/10/2022 with no guarantee of continued stay approval. Patient/patient spouse voiced understanding to insurance update process. Patient plans to discharge to home with spouse. Social Work to continue to follow. Doretha LOZANO, ADITI
--- NOTE | 2022-04-05 14:24 | PCM.PROGNOTE ---
Subjective Subjective Shira was seen on team rounds today. Her Pilo was present in the room for rounds. Afebrile VSS-blood pressure is controlled. Maintaining appropriate oxygen saturation on RA Oral intake is good Discussed with nursing - no problems that need addressed Reviewed the PT/OT/ST notes Medication list reviewed. PT and the patient report she has more pain today. The pain is in the R arm and leg. She denies pain in the face. Suspect this is central pain due to the CVA. No adverse effects with Neurontin which she was on prior to the stroke. Shira denies chest pain, shortness of breath, calf pain, dysuria, cough, sore throat, lightheadedness, nausea/vomiting/diarrhea/constipation. Objective Data Objective Data Vital Signs: Vital Signs Temp Pulse Resp BP Pulse Ox O2 Del Method 97.5 F L 62 18 132/69 H 97 Room Air 04/05/22 08:15 04/05/22 08:15 04/05/22 08:15 04/05/22 08:15 04/05/22 08:15 04/05/22 08:15 Oxygen Delivery Method Room Air Weight: 191 lb 2.252 oz Body Mass Index (BMI) 32.9 Intake & Output: Intake and Output for Last 24 Hours 04/03/22 04/04/22 04/05/22 23:59 23:59 23:59 Intake Total 960 / 960 490 / 490 Balance 960 / 960 490 / 490 Lab / Micro Data Result Diagrams: 04/04/22 05:36 04/04/22 05:36 Micro: Microbiology 04/04/22 17:18 Stool Stool Occult Blood (HAKEEM) - Final Physical Exam Const alert, oriented x3 and no apparent distress Resp normal respiratory effort, normal air movement and clear to auscultation bilaterally Effort and Inspection: Negative for tachypneic Cardio regular rate, regular rhythm, S1 normal heart sound, S2 normal heart sound and no gallops GI normal to inspection, nondistended, normoactive bowel sounds, soft to palpation and non-tender Inspection: abdominal distention Extremity no calf tenderness Extremity Narrative: mild ankle swelling....AUGUSTO hose are in place and it is better Skin General Skin Exam: no breakdown Rashes: no rashes Psych cooperative and affect normal Appearance: appropriate Assessment & Plan Assessment/Plan (1) Ischemic cerebrovascular accident (CVA): PLAN: Continue therapy. Continue statin, dual antiplatelet agents. Maintain blood pressure less than 130/80 after this week. Continue PT/OT/ST. (2) Facial droop due to acute cerebrovascular accident (CVA): (3) Right hemiparesis: (4) Chronic central neuropathic pain: PLAN: Increase the gabapentin dosing. (5) Cerebrovascular disease: Charges/Coding Visit Charges Inpatient E&M: 18790 Subs Hosp L2
[2022-04-05] MEDS: Gabapentin 400 MG Capsule PO (16:57)
[2022-04-05 19:47] VITALS: BP 144/69; PULSE 67; RESP 16; TEMP 36.7; O2SAT 97
[2022-04-05] MEDS: Gabapentin 600 MG Tablet PO (20:20)
[2022-04-05] MEDS: Atorvastatin Calcium 40 MG Tablet PO (20:21)
[2022-04-05] MEDS: Montelukast 10 MG Tablet PO (20:22)
[2022-04-06 07:33] VITALS: BP 140/61; PULSE 62; RESP 18; TEMP 36.2; O2SAT 96
[2022-04-06] MEDS: Aspirin 81 MG TAB.CHEW PO (07:48)
[2022-04-06] MEDS: Ascorbic Acid 500 MG Tablet PO (07:48)
[2022-04-06] MEDS: Multivitamins,Therapeutic Tablet 1 TABLET PO (07:48)
[2022-04-06] MEDS: Clopidogrel Bisulfate 75 MG Tablet PO (07:48)
[2022-04-06] MEDS: Cholecalciferol (VIT D3) 25 MCG TABLET (1,000 UNITS) PO (07:48)
[2022-04-06] MEDS: Sertraline 50 MG Tablet 25 MG PO ×2 (07:48→21:03)
[2022-04-06] MEDS: Senna/Docusate Sodium 1 Tablet 2 TABLET PO ×2 (07:49→21:02)
[2022-04-06] MEDS: Fluticasone 0.05% 1 SPRAY NASAL.SRY 2 SPRAY NASAL (07:50)
[2022-04-06] MEDS: Propranolol LA 60 MG Capsule 120 MG PO (07:50)
[2022-04-06] MEDS: amLODIPine 2.5 MG Tablet PO (07:51)
[2022-04-06] MEDS: Tolterodine Tartrate 4 MG CAP.SA PO (07:51)
[2022-04-06] MEDS: Enoxaparin 40 MG/0.4 ML Syringe SC (07:51)
[2022-04-06] MEDS: Nystatin Powder 15gm Bottle 1 APPLIC TOPICAL ×2 (07:52→21:09)
[2022-04-06] MEDS: Famotidine 20 MG Tablet 40 MG PO (07:55)
[2022-04-06] MEDS: Gabapentin 400 MG Capsule PO ×2 (07:59→16:52)
[2022-04-06 08:32] VITALS: O2SAT 98
[2022-04-06 20:20] VITALS: BP 123/67; PULSE 66; RESP 17; TEMP 36.6; O2SAT 97
[2022-04-06] MEDS: Gabapentin 600 MG Tablet PO (21:01)
[2022-04-06] MEDS: Atorvastatin Calcium 40 MG Tablet PO (21:02)
[2022-04-06] MEDS: Montelukast 10 MG Tablet PO (21:03)
[2022-04-07] MEDS: Acetaminophen 500 MG Tablet 1000 MG PO ×2 (00:21→20:04)
[2022-04-07 07:37] VITALS: BP 134/65; PULSE 58; RESP 18; TEMP 36.6; O2SAT 96
[2022-04-07] MEDS: Enoxaparin 40 MG/0.4 ML Syringe SC (09:03)
[2022-04-07] MEDS: NYSTATIN 500,000 UNIT/5 ML UDC 500000 UNIT PO ×2 (09:03→14:00)
[2022-04-07] MEDS: Ascorbic Acid 500 MG Tablet PO (09:04)
[2022-04-07] MEDS: amLODIPine 2.5 MG Tablet PO (09:04)
[2022-04-07] MEDS: Clopidogrel Bisulfate 75 MG Tablet PO (09:04)
[2022-04-07] MEDS: Propranolol LA 60 MG Capsule 120 MG PO (09:04)
[2022-04-07] MEDS: Cholecalciferol (VIT D3) 25 MCG TABLET (1,000 UNITS) PO (09:04)
[2022-04-07] MEDS: Tolterodine Tartrate 4 MG CAP.SA PO (09:05)
[2022-04-07] MEDS: Gabapentin 400 MG Capsule PO ×2 (09:05→17:04)
[2022-04-07] MEDS: Multivitamins,Therapeutic Tablet 1 TABLET PO (09:05)
[2022-04-07] MEDS: Aspirin 81 MG TAB.CHEW PO (09:05)
[2022-04-07] MEDS: Sertraline 50 MG Tablet 25 MG PO ×2 (09:05→20:05)
[2022-04-07] MEDS: Famotidine 20 MG Tablet 40 MG PO (09:05)
[2022-04-07] MEDS: Fluticasone 0.05% 1 SPRAY NASAL.SRY 2 SPRAY NASAL (09:06)
[2022-04-07] MEDS: Nystatin Powder 15gm Bottle 1 APPLIC TOPICAL ×2 (09:11→20:06)
[2022-04-07 19:59] VITALS: BP 131/59; PULSE 64; RESP 16; TEMP 36.4; O2SAT 97
[2022-04-07] MEDS: Gabapentin 600 MG Tablet PO (20:04)
[2022-04-07] MEDS: Montelukast 10 MG Tablet PO (20:05)
[2022-04-07] MEDS: Atorvastatin Calcium 40 MG Tablet PO (20:05)
[2022-04-08 07:42] VITALS: BP 166/64; PULSE 64; RESP 18; TEMP 36.6; O2SAT 98
[2022-04-08] MEDS: Famotidine 20 MG Tablet 40 MG PO (08:14)
[2022-04-08] MEDS: Sertraline 50 MG Tablet 25 MG PO ×2 (08:14→20:06)
[2022-04-08] MEDS: Propranolol LA 60 MG Capsule 120 MG PO (08:14)
[2022-04-08] MEDS: Enoxaparin 40 MG/0.4 ML Syringe SC (08:14)
[2022-04-08] MEDS: Clopidogrel Bisulfate 75 MG Tablet PO (08:15)
[2022-04-08] MEDS: Aspirin 81 MG TAB.CHEW PO (08:15)
[2022-04-08] MEDS: Tolterodine Tartrate 4 MG CAP.SA PO (08:15)
[2022-04-08] MEDS: amLODIPine 2.5 MG Tablet PO (08:15)
[2022-04-08] MEDS: Multivitamins,Therapeutic Tablet 1 TABLET PO (08:15)
[2022-04-08] MEDS: Cholecalciferol (VIT D3) 25 MCG TABLET (1,000 UNITS) PO (08:15)
[2022-04-08] MEDS: Ascorbic Acid 500 MG Tablet PO (08:15)
[2022-04-08] MEDS: Gabapentin 400 MG Capsule PO ×2 (08:15→16:59)
[2022-04-08] MEDS: Nystatin Powder 15gm Bottle 1 APPLIC TOPICAL ×2 (08:18→20:09)
[2022-04-08] MEDS: Fluticasone 0.05% 1 SPRAY NASAL.SRY 2 SPRAY NASAL (08:22)
[2022-04-08 19:32] VITALS: BP 144/73; PULSE 72; RESP 18; TEMP 36.7; O2SAT 95
[2022-04-08 19:48] VITALS: PULSE 72; RESP 17; O2SAT 95
[2022-04-08] MEDS: Atorvastatin Calcium 40 MG Tablet PO (20:06)
[2022-04-08] MEDS: Gabapentin 600 MG Tablet PO (20:06)
[2022-04-08] MEDS: Montelukast 10 MG Tablet PO (20:07)
[2022-04-08] MEDS: Acetaminophen 500 MG Tablet 1000 MG PO (20:08)
[2022-04-08] MEDS: NYSTATIN 500,000 UNIT/5 ML UDC 500000 UNIT PO (20:09)
[2022-04-09] MEDS: Clopidogrel Bisulfate 75 MG Tablet PO (09:00)
[2022-04-09] MEDS: Enoxaparin 40 MG/0.4 ML Syringe SC (09:00)
[2022-04-09] MEDS: Cholecalciferol (VIT D3) 25 MCG TABLET (1,000 UNITS) PO (09:01)
[2022-04-09] MEDS: Gabapentin 400 MG Capsule PO ×2 (09:01→17:21)
[2022-04-09] MEDS: Famotidine 20 MG Tablet 40 MG PO (09:01)
[2022-04-09] MEDS: Tolterodine Tartrate 4 MG CAP.SA PO (09:01)
[2022-04-09] MEDS: Ascorbic Acid 500 MG Tablet PO (09:01)
[2022-04-09] MEDS: Aspirin 81 MG TAB.CHEW PO (09:01)
[2022-04-09] MEDS: Multivitamins,Therapeutic Tablet 1 TABLET PO (09:01)
[2022-04-09] MEDS: Sertraline 50 MG Tablet 25 MG PO ×2 (09:01→19:58)
[2022-04-09] MEDS: amLODIPine 2.5 MG Tablet PO (09:01)
[2022-04-09] MEDS: Propranolol LA 60 MG Capsule 120 MG PO (09:01)
[2022-04-09] MEDS: Senna/Docusate Sodium 1 Tablet 2 TABLET PO ×2 (09:02→19:58)
[2022-04-09] MEDS: Fluticasone 0.05% 1 SPRAY NASAL.SRY 2 SPRAY NASAL (09:03)
[2022-04-09] MEDS: Nystatin Powder 15gm Bottle 1 APPLIC TOPICAL ×2 (09:05→20:00)
--- NOTE | 2022-04-09 09:37 | PN_ITS ---
Subjective Subjective Afebrile VSS -systolic blood pressure is mildly elevated intermittently but the diastolic is always within normal limits. We will continue to monitor. Maintaining appropriate oxygen saturation on RA Oral intake is good Discussed with nursing - no problems that need addressed Reviewed the PT/OT/ST notes - progressing with therapy. Continues to be most challenged with cognition and feels her thought process is slower than prior to the stroke. She continues to use the WW but, therapy tells me that they are goi ng to challenge her with a cane. Has not done steps yet. Medication list reviewed. Shira denies lightheadedness, cephalgia, chest pain, shortness of breath, palpitations, N/V/C/D/abdominal pain, dysuria. Speech is normal. No choking. Objective Data Objective Data Vital Signs: Vital Signs Temp Pulse Resp BP Pulse Ox O2 Del Method 98.0 F 72 17 144/73 H 95 Room Air 04/08/22 19:32 04/08/22 19:48 04/08/22 19:48 04/08/22 19:32 04/08/22 19:48 04/08/22 19:48 Oxygen Delivery Method Room Air Weight: 191 lb 2.252 oz Body Mass Index (BMI) 32.9 Intake & Output: Intake and Output for Last 24 Hours 04/07/22 04/08/22 04/09/22 23:59 23:59 23:59 Intake Total 360 / 360 480 / 480 840 / 840 Balance 360 / 360 480 / 480 840 / 840 Lab / Micro Data Result Diagrams: 04/17/22 05:21 04/17/22 05:21 Micro: Microbiology 04/04/22 17:18 Stool Stool Occult Blood (HAKEEM) - Final Physical Exam Const alert, oriented x3 and no apparent distress General Appearance: cooperative, comfortable and well kempt HEENT moist oral mucous membranes Eyes PERRL and EOMs intact bilaterally Eyes Narrative: Still with mild ptosis of the R upper eyelid. No visual field cuts Resp normal respiratory effort, normal air movement and clear to auscultation bilaterally Effort and Inspection: able to speak in complete sentences Cardio regular rate, regular rhythm, no murmurs and no gallops Cardio Narrative: No ectopy. She has not had any AF when I have examined her during the admission to the rehab unit. GI normal to inspection, nondistended, normoactive bowel sounds, soft to palpation and non-tender GI Narrative: No guarding with palpation. Extremity no calf tenderness General Extremity: Negative for edema Skin General Skin Exam: no breakdown Rashes: no rashes Assessment & Plan Assessment/Plan (1) Physical debility: PLAN: Continue therapy. 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 (4) HTN (hypertension): PLAN: Well controlled. (5) HLD (hyperlipidemia): PLAN: Will need repeat Liver and lipid panels in 6 weeks. She is going to follow up with Dr. Olvera after DC. PLAN: Plan Continue therapy. Continue education on what she can do to prevent another stroke. Event monitor at DC since she has untreated sleep apnea and may be having PAF. Charges/Coding Visit Charges Inpatient E&M: 42572 Subs Hosp L2
[2022-04-09 10:00] VITALS: BP 123/50; PULSE 61; RESP 17; TEMP 36.2; O2SAT 97
[2022-04-09 19:15] VITALS: BP 121/67; PULSE 75; RESP 14; TEMP 36.9; O2SAT 96
[2022-04-09] MEDS: Gabapentin 600 MG Tablet PO (19:52)
[2022-04-09] MEDS: Montelukast 10 MG Tablet PO (19:58)
[2022-04-09] MEDS: Atorvastatin Calcium 40 MG Tablet PO (19:58)
[2022-04-09 22:00] VITALS: PULSE 78; RESP 15; O2SAT 96
[2022-04-09] MEDS: Acetaminophen 500 MG Tablet 1000 MG PO (22:32)
[2022-04-10 07:21] VITALS: BP 140/63; PULSE 70; RESP 17; TEMP 36.2; O2SAT 96
[2022-04-10] MEDS: Enoxaparin 40 MG/0.4 ML Syringe SC (07:53)
[2022-04-10] MEDS: Tolterodine Tartrate 4 MG CAP.SA PO (07:54)
[2022-04-10] MEDS: amLODIPine 2.5 MG Tablet PO (07:54)
[2022-04-10] MEDS: Fluticasone 0.05% 1 SPRAY NASAL.SRY 2 SPRAY NASAL (07:54)
[2022-04-10] MEDS: Famotidine 20 MG Tablet 40 MG PO (07:54)
[2022-04-10] MEDS: Gabapentin 400 MG Capsule PO ×2 (07:54→17:27)
[2022-04-10] MEDS: Propranolol LA 60 MG Capsule 120 MG PO (07:54)
[2022-04-10] MEDS: Clopidogrel Bisulfate 75 MG Tablet PO (07:55)
[2022-04-10] MEDS: Aspirin 81 MG TAB.CHEW PO (07:55)
[2022-04-10] MEDS: Senna/Docusate Sodium 1 Tablet 2 TABLET PO ×2 (07:55→21:25)
[2022-04-10] MEDS: Ascorbic Acid 500 MG Tablet PO (07:55)
[2022-04-10] MEDS: Cholecalciferol (VIT D3) 25 MCG TABLET (1,000 UNITS) PO (07:55)
[2022-04-10] MEDS: Multivitamins,Therapeutic Tablet 1 TABLET PO (07:55)
[2022-04-10] MEDS: Sertraline 50 MG Tablet 25 MG PO ×2 (07:58→21:25)
[2022-04-10] MEDS: Nystatin Powder 15gm Bottle 1 APPLIC TOPICAL ×2 (08:02→21:25)
[2022-04-10 19:48] VITALS: BP 135/55; PULSE 64; RESP 16; TEMP 36.7; O2SAT 97
[2022-04-10] MEDS: Acetaminophen 500 MG Tablet 1000 MG PO (21:05)
[2022-04-10] MEDS: Atorvastatin Calcium 40 MG Tablet PO (21:25)
[2022-04-10] MEDS: Montelukast 10 MG Tablet PO (21:26)
[2022-04-10] MEDS: Gabapentin 600 MG Tablet PO (21:29)
[2022-04-10 22:00] VITALS: PULSE 64; RESP 16; O2SAT 97
[2022-04-11 07:46] VITALS: BP 132/73; PULSE 69; RESP 16; TEMP 36.1; O2SAT 94
[2022-04-11] MEDS: Aspirin 81 MG TAB.CHEW PO (08:07)
[2022-04-11] MEDS: Ascorbic Acid 500 MG Tablet PO (08:07)
[2022-04-11] MEDS: Famotidine 20 MG Tablet 40 MG PO (08:07)
[2022-04-11] MEDS: Clopidogrel Bisulfate 75 MG Tablet PO (08:08)
[2022-04-11] MEDS: Tolterodine Tartrate 4 MG CAP.SA PO (08:08)
[2022-04-11] MEDS: amLODIPine 2.5 MG Tablet PO (08:08)
[2022-04-11] MEDS: Multivitamins,Therapeutic Tablet 1 TABLET PO (08:08)
[2022-04-11] MEDS: Cholecalciferol (VIT D3) 25 MCG TABLET (1,000 UNITS) PO (08:08)
[2022-04-11] MEDS: Enoxaparin 40 MG/0.4 ML Syringe SC (08:08)
[2022-04-11] MEDS: Propranolol LA 60 MG Capsule 120 MG PO (08:08)
[2022-04-11] MEDS: Fluticasone 0.05% 1 SPRAY NASAL.SRY 2 SPRAY NASAL (08:09)
[2022-04-11] MEDS: Sertraline 50 MG Tablet 25 MG PO ×2 (08:09→21:45)
[2022-04-11] MEDS: Nystatin Powder 15gm Bottle 1 APPLIC TOPICAL ×2 (08:10→21:46)
[2022-04-11] MEDS: Gabapentin 400 MG Capsule PO ×2 (08:11→16:56)
--- NOTE | 2022-04-11 12:59 | PN_ITS ---
Subjective Subjective Afebrile VSS-systolic blood pressure is frequently still above 130. She is tolerating amlodipine with no side effects. Diastolic pressures consistently less than 80. Maintaining appropriate oxygen saturation on RA Oral intake is good Discussed with nursing - no problems that need addressed Reviewed the PT/OT/ST notes Medication list reviewed. Shira tells me that the pain in the R leg and the R arm is better with the Gabapentin however, she is still having pain in the R foot, mostly at night. She also still notices that her thinking is slower than what it used to be. She is aware of her deficits now. She denies chest pain, shortness of breath, palpitations, lightheadedness, dysuria, calf pain, N/B/C/D. Constipation which she has had for years is much better now that she is taking senna. Objective Data Objective Data Vital Signs: Vital Signs Temp Pulse Resp BP Pulse Ox O2 Del Method 97.0 F L 69 16 132/73 H 94 Room Air 04/11/22 07:46 04/11/22 07:46 04/11/22 07:46 04/11/22 07:46 04/11/22 07:46 04/11/22 07:46 Oxygen Delivery Method Room Air Weight: 190 lb 11.198 oz Body Mass Index (BMI) 32.9 Intake & Output: Intake and Output for Last 24 Hours 04/09/22 04/10/22 04/11/22 23:59 23:59 23:59 Intake Total 960 / 960 500 / 500 120 / 120 Output Total 350 / 350 Balance 960 / 960 150 / 150 120 / 120 Lab / Micro Data Result Diagrams: 04/04/22 05:36 04/04/22 05:36 Micro: Microbiology 04/04/22 17:18 Stool Stool Occult Blood (HAKEEM) - Final Physical Exam Const alert, oriented x3 and no apparent distress Constitutional Narrative: Sitting in the recliner at the bedside and she appears in no distress. General Appearance: cooperative HEENT moist oral mucous membranes Eyes PERRL and EOMs intact bilaterally Eyes Narrative: Still with mild ptosis of the R upper eyelid. No visual field cuts Resp normal respiratory effort, normal air movement and clear to auscultation bilaterally Cardio regular rate, regular rhythm, S1 normal heart sound, S2 normal heart sound and no gallops GI normal to inspection, nondistended, normoactive bowel sounds, soft to palpation and non-tender Extremity no calf tenderness General Extremity: Negative for edema Skin General Skin Exam: no breakdown Rashes: no rashes Assessment & Plan Assessment/Plan (1) Physical debility: (2) Ischemic cerebrovascular accident (CVA): (3) Facial droop due to acute cerebrovascular accident (CVA): (4) Right hemiparesis: (5) Chronic central neuropathic pain: PLAN: Increase gabapentin to 800 mg p.o. nightly. (6) HTN (hypertension): PLAN: The goal for BP is to keep it less than 130/80. WQe are not consistently there yet. She has no lightheadedness and is tolerating Amlodipine with no adverse side effects. Will increase the Amlodipine to 5 mg daily. PLAN: Plan 1. Continue therapy. She will TEAM tomorrow and wants to talk about possible DC date. She would like to have OP therapy at [facility]. 2. We once again discussed goals for therapy to prevent additional strokes going forward. She plans on following up with a new PCP. She asked me for a recommendation and the will give her a list of local physicians accepting new patients. 3. She would like to follow up with Dr. Pro for overactive bladder following DC from rehab. 4. BMP, HH and a HGBA1C in the AM. I suspect she has glucose intolerance. 5. Have the floral design teacher do education with Shira and her (he is the cook in the family) on low fat, low salt and possibly carb control prior to DC. Charges/Coding Visit Charges Inpatient E&M: 54468 Subs Hosp L2
[2022-04-11 19:53] VITALS: BP 113/65; PULSE 79; RESP 18; TEMP 36.3; O2SAT 98
[2022-04-11] MEDS: Gabapentin 800 MG Tablet PO (21:45)
[2022-04-11] MEDS: Montelukast 10 MG Tablet PO (21:45)
[2022-04-11] MEDS: Atorvastatin Calcium 40 MG Tablet PO (21:45)
[2022-04-11] MEDS: Acetaminophen 500 MG Tablet 1000 MG PO (21:49)
[2022-04-12] MEDS: Fluticasone 0.05% 1 SPRAY NASAL.SRY 2 SPRAY NASAL (07:49)
[2022-04-12] MEDS: Sertraline 50 MG Tablet 25 MG PO ×2 (07:50→20:19)
[2022-04-12] MEDS: Enoxaparin 40 MG/0.4 ML Syringe SC (07:50)
[2022-04-12] MEDS: Gabapentin 400 MG Capsule PO ×2 (07:51→17:13)
[2022-04-12] MEDS: Famotidine 20 MG Tablet 40 MG PO (07:51)
[2022-04-12] MEDS: Clopidogrel Bisulfate 75 MG Tablet PO (07:51)
[2022-04-12] MEDS: Propranolol LA 60 MG Capsule 120 MG PO (07:52)
[2022-04-12] MEDS: Aspirin 81 MG TAB.CHEW PO (07:52)
[2022-04-12] MEDS: amLODIPine 2.5 MG Tablet PO (07:52)
[2022-04-12] MEDS: Multivitamins,Therapeutic Tablet 1 TABLET PO (07:52)
[2022-04-12] MEDS: Tolterodine Tartrate 4 MG CAP.SA PO (07:52)
[2022-04-12] MEDS: Ascorbic Acid 500 MG Tablet PO (07:52)
[2022-04-12] MEDS: Nystatin Powder 15gm Bottle 1 APPLIC TOPICAL ×2 (07:53→20:20)
[2022-04-12] MEDS: Cholecalciferol (VIT D3) 25 MCG TABLET (1,000 UNITS) PO (07:53)
[2022-04-12 07:55] VITALS: BP 141/73; PULSE 65; RESP 18; TEMP 36.6; O2SAT 95
--- NOTE | 2022-04-12 12:41 | CASEMGMT ---
Social Work IDT met with patient and for Team meeting. Discussed patient's progress in PT/OT/ST/SN. Explained [facility] insurance with [employer] 04/16 and continued stay is not guaranteed. The goal is for pt to return home with at [facility]. SW to order HHC or OP therapy and FWW at [place]. SW to continue to follow. Theodora Cook, BLAKE PORTERW
[2022-04-12] MEDS: Gabapentin 800 MG Tablet PO (20:18)
[2022-04-12] MEDS: Atorvastatin Calcium 40 MG Tablet PO (20:18)
[2022-04-12] MEDS: Montelukast 10 MG Tablet PO (20:18)
[2022-04-12] MEDS: Senna/Docusate Sodium 1 Tablet 2 TABLET PO (20:18)
[2022-04-12] MEDS: Acetaminophen 500 MG Tablet 1000 MG PO (20:40)
[2022-04-12 22:00] VITALS: BP 124/58; PULSE 62; RESP 18; TEMP 36.5; O2SAT 95
[2022-04-13] MEDS: Tolterodine Tartrate 4 MG CAP.SA PO (08:05)
[2022-04-13] MEDS: Sertraline 50 MG Tablet 25 MG PO ×2 (08:05→20:42)
[2022-04-13] MEDS: Multivitamins,Therapeutic Tablet 1 TABLET PO (08:05)
[2022-04-13] MEDS: amLODIPine 2.5 MG Tablet PO (08:05)
[2022-04-13] MEDS: Cholecalciferol (VIT D3) 25 MCG TABLET (1,000 UNITS) PO (08:05)
[2022-04-13] MEDS: Gabapentin 400 MG Capsule PO ×2 (08:05→18:08)
[2022-04-13] MEDS: Clopidogrel Bisulfate 75 MG Tablet PO (08:05)
[2022-04-13] MEDS: Propranolol LA 60 MG Capsule 120 MG PO (08:05)
[2022-04-13] MEDS: Famotidine 20 MG Tablet 40 MG PO (08:06)
[2022-04-13] MEDS: Aspirin 81 MG TAB.CHEW PO (08:06)
[2022-04-13] MEDS: Ascorbic Acid 500 MG Tablet PO (08:06)
[2022-04-13] MEDS: Fluticasone 0.05% 1 SPRAY NASAL.SRY 2 SPRAY NASAL (08:06)
[2022-04-13 08:20] VITALS: BP 128/50; PULSE 69; RESP 16; TEMP 36.3; O2SAT 97
[2022-04-13] MEDS: Enoxaparin 40 MG/0.4 ML Syringe SC (08:49)
[2022-04-13 19:05] VITALS: BP 131/57; PULSE 72; RESP 16; TEMP 36.7; O2SAT 99
[2022-04-13] MEDS: Gabapentin 800 MG Tablet PO (20:41)
[2022-04-13] MEDS: Atorvastatin Calcium 40 MG Tablet PO (20:42)
[2022-04-13] MEDS: Montelukast 10 MG Tablet PO (20:44)
[2022-04-13] MEDS: Nystatin Powder 15gm Bottle 1 APPLIC TOPICAL (20:47)
[2022-04-13] MEDS: Acetaminophen 500 MG Tablet 1000 MG PO (21:00)
[2022-04-14] MEDS: Nystatin Powder 15gm Bottle 1 APPLIC TOPICAL ×2 (06:24→21:07)
[2022-04-14] MEDS: Enoxaparin 40 MG/0.4 ML Syringe SC (06:24)
[2022-04-14 07:30] VITALS: BP 128/72; PULSE 66; RESP 18; TEMP 36.3; O2SAT 97
[2022-04-14] MEDS: Gabapentin 400 MG Capsule PO ×2 (08:12→17:00)
[2022-04-14] MEDS: Sertraline 50 MG Tablet 25 MG PO ×2 (08:12→21:06)
[2022-04-14] MEDS: Clopidogrel Bisulfate 75 MG Tablet PO (08:13)
[2022-04-14] MEDS: Fluticasone 0.05% 1 SPRAY NASAL.SRY 2 SPRAY NASAL (08:13)
[2022-04-14] MEDS: Senna/Docusate Sodium 1 Tablet 2 TABLET PO ×2 (08:13→21:05)
[2022-04-14] MEDS: Famotidine 20 MG Tablet 40 MG PO (08:13)
[2022-04-14] MEDS: Cholecalciferol (VIT D3) 25 MCG TABLET (1,000 UNITS) PO (08:15)
[2022-04-14] MEDS: Propranolol LA 60 MG Capsule 120 MG PO (08:15)
[2022-04-14] MEDS: Multivitamins,Therapeutic Tablet 1 TABLET PO (08:15)
[2022-04-14] MEDS: Ascorbic Acid 500 MG Tablet PO (08:16)
[2022-04-14] MEDS: Aspirin 81 MG TAB.CHEW PO (08:16)
[2022-04-14] MEDS: Tolterodine Tartrate 4 MG CAP.SA PO (08:17)
[2022-04-14] MEDS: amLODIPine 2.5 MG Tablet PO (08:17)
--- NOTE | 2022-04-14 13:31 | PCM.PN.BLA ---
Progress Note Shira was seen on TEAM rounds on 04/12/22. Her Pilo was present in the room for rounds. Afebrile VSS Maintaining appropriate oxygen saturation on RA Oral intake is adequate Discussed with nursing - no problems that need addressed Reviewed the PT/OT/ST notes Medication list reviewed. Shira denies SOB, CP, Calf pain, dysuria, lightheadedness, N/V/abd pain, cephalgia. Progressing well in therapy. Still feeling like her thought processing is slow. Sleeping well at night and has a good intake. Did not awaken with R foot pain last night......HS Gabapentin increased to 800 mg. Not drowsy this AM Physical Exam Const alert, oriented x3 and no apparent distress Constitutional Narrative: Sitting in the recliner at the bedside and following the conversation closely. Has some questions and these were answered to he satisfaction. Repeatedly asking me her goals to prevent another stroke going forward. General Appearance: comfortable and well kempt HEENT Mouth: moist mucous membranes abnormal and No thrush Eyes PERRL, EOMs intact bilaterally, conjunctivae normal, no scleral icterus and normal visual jang by confrontation Neck supple General: trachea midline Resp normal respiratory effort, normal air movement and clear to auscultation bilaterally Resp Narrative: No cough Effort and Inspection: able to speak in complete sentences Cardio regular rate, regular rhythm and no gallops GI normal to inspection, nondistended, normoactive bowel sounds, soft to palpation and non-tender GI Narrative: No guarding with palpation. Extremity no calf tenderness Assessment & Plan Assessment/Plan (1) Physical debility: PLAN: Continue therapy. Will need ongoing therapy post DC.......favor OP but, will discuss again closer to the DC date. (2) Ischemic cerebrovascular accident (CVA): PLAN: Pt once again wanting to discuss what she needs to do to prevent another stroke. she tends to perseverate on this. I assured her I would list her goals on her DC paperwork. (3) Chronic central neuropathic pain: PLAN: better with the increase in the HS dose of the Gabapentin. 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 Asked Pilo to bring in the machine and will have RT try some different masks. Visit Charges Inpatient E&M: 85256 Subs Hosp L2
[2022-04-14] MEDS: Magnesium Hydroxide 30 ML UDC PO (17:34)
[2022-04-14 19:07] VITALS: BP 117/60; PULSE 80; RESP 17; TEMP 36.8; O2SAT 98
[2022-04-14] MEDS: Atorvastatin Calcium 40 MG Tablet PO (21:06)
[2022-04-14] MEDS: Montelukast 10 MG Tablet PO (21:06)
[2022-04-14] MEDS: Gabapentin 800 MG Tablet PO (21:07)
[2022-04-14] MEDS: Acetaminophen 500 MG Tablet 1000 MG PO (22:57)
[2022-04-14] MEDS: Mag Hydrox/Al Hydrox/Simeth 30 ML UDC PO (23:23)
[2022-04-15] MEDS: Nystatin Powder 15gm Bottle 1 APPLIC TOPICAL ×2 (06:12→20:37)
[2022-04-15] MEDS: Enoxaparin 40 MG/0.4 ML Syringe SC (06:12)
[2022-04-15 07:24] VITALS: BP 121/66; PULSE 62; RESP 18; TEMP 36.4; O2SAT 96
[2022-04-15] MEDS: amLODIPine 2.5 MG Tablet PO (07:58)
[2022-04-15] MEDS: Multivitamins,Therapeutic Tablet 1 TABLET PO (07:58)
[2022-04-15] MEDS: Ascorbic Acid 500 MG Tablet PO (07:58)
[2022-04-15] MEDS: Clopidogrel Bisulfate 75 MG Tablet PO (07:58)
[2022-04-15] MEDS: Gabapentin 400 MG Capsule PO ×2 (07:58→16:48)
[2022-04-15] MEDS: Sertraline 50 MG Tablet 25 MG PO ×2 (07:58→20:36)
[2022-04-15] MEDS: Cholecalciferol (VIT D3) 25 MCG TABLET (1,000 UNITS) PO (07:58)
[2022-04-15] MEDS: Famotidine 20 MG Tablet 40 MG PO (07:58)
[2022-04-15] MEDS: Fluticasone 0.05% 1 SPRAY NASAL.SRY 2 SPRAY NASAL (07:58)
[2022-04-15] MEDS: Tolterodine Tartrate 4 MG CAP.SA PO (07:59)
[2022-04-15] MEDS: Propranolol LA 60 MG Capsule 120 MG PO (07:59)
[2022-04-15] MEDS: Aspirin 81 MG TAB.CHEW PO (08:00)
[2022-04-15 19:33] VITALS: BP 125/68; PULSE 72; RESP 17; TEMP 36.4; O2SAT 97
[2022-04-15] MEDS: Gabapentin 800 MG Tablet PO (20:36)
[2022-04-15] MEDS: Montelukast 10 MG Tablet PO (20:36)
[2022-04-15] MEDS: Atorvastatin Calcium 40 MG Tablet PO (20:36)
[2022-04-15] MEDS: Acetaminophen 500 MG Tablet 1000 MG PO (23:15)
[2022-04-15] MEDS: Pantoprazole Sodium 40 MG Tablet PO (23:16)
[2022-04-15] MEDS: Mag Hydrox/Al Hydrox/Simeth 30 ML UDC PO (23:16)
[2022-04-16] MEDS: Enoxaparin 40 MG/0.4 ML Syringe SC (05:13)
[2022-04-16] MEDS: Nystatin Powder 15gm Bottle 1 APPLIC TOPICAL ×2 (05:13→21:01)
[2022-04-16 07:25] VITALS: BP 129/78; PULSE 66; RESP 16; TEMP 36.6; O2SAT 97
[2022-04-16] MEDS: amLODIPine 2.5 MG Tablet PO (07:31)
[2022-04-16] MEDS: Aspirin 81 MG TAB.CHEW PO (07:31)
[2022-04-16] MEDS: Clopidogrel Bisulfate 75 MG Tablet PO (07:31)
[2022-04-16] MEDS: Tolterodine Tartrate 4 MG CAP.SA PO (07:31)
[2022-04-16] MEDS: Fluticasone 0.05% 1 SPRAY NASAL.SRY 2 SPRAY NASAL (07:31)
[2022-04-16] MEDS: Senna/Docusate Sodium 1 Tablet 2 TABLET PO ×2 (07:31→21:01)
[2022-04-16] MEDS: Gabapentin 400 MG Capsule PO ×2 (07:31→17:25)
[2022-04-16] MEDS: Cholecalciferol (VIT D3) 25 MCG TABLET (1,000 UNITS) PO (07:33)
[2022-04-16] MEDS: Ascorbic Acid 500 MG Tablet PO (07:33)
[2022-04-16] MEDS: Propranolol LA 60 MG Capsule 120 MG PO (07:33)
[2022-04-16] MEDS: Multivitamins,Therapeutic Tablet 1 TABLET PO (07:33)
[2022-04-16] MEDS: Sertraline 50 MG Tablet 25 MG PO ×2 (07:33→21:02)
[2022-04-16] MEDS: Pantoprazole Sodium 40 MG Tablet PO (07:35)
--- NOTE | 2022-04-16 12:01 | PN_ITS ---
Subjective Subjective Afebrile VSS-blood pressure is well controlled. Maintaining appropriate oxygen saturation on RA Oral intake is adequate Discussed with nursing - no problems that need addressed Reviewed the PT/OT/ST notes Medication list reviewed. Shira still maintains that she is not sleeping well. She attributes this to pain in the left arm. Has had epidurals in the past in [place]. The Gabapentin helps but she still has intermittent pain. She was diagnosed with JANE 4-5years ago and has a CPAP unit but, has not worn it in the past 4 years because she says it is too tight. The RT checked the mask over the weekend and it is fit appropriately. She has daytime somnolence and tells me that she has to take a nap in the afternoons. She has memory difficulties.....this predated the stroke. She also has depression. We discussed how sleep apnea can cause AF and strokes and that her risk for more strokes is significantly increased due to the untreated sleep apnea. She has an overbite and a short jaw. She has no com plaints today other than she does not sleep well and this is chronic, not new since the CVA. She is still having numbness of the R face, arm and leg but, strength has been improving. Objective Data Objective Data Vital Signs: Vital Signs Temp Pulse Resp BP Pulse Ox O2 Del Method 97.9 F 66 16 129/78 H 97 Room Air 04/16/22 07:25 04/16/22 07:25 04/16/22 07:25 04/16/22 07:25 04/16/22 07:25 04/16/22 07:25 Oxygen Delivery Method Room Air Weight: 190 lb 11.198 oz Body Mass Index (BMI) 32.9 Intake & Output: Intake and Output for Last 24 Hours 04/14/22 04/15/22 04/16/22 23:59 23:59 23:59 Intake Total 360 / 360 Balance 360 / 360 Lab / Micro Data Result Diagrams: 04/17/22 05:21 04/17/22 05:21 Micro: Microbiology 04/04/22 17:18 Stool Stool Occult Blood (HAKEEM) - Final Physical Exam Const alert, oriented x3 and no apparent distress General Appearance: cooperative Resp normal respiratory effort, normal air movement and clear to auscultation bilaterally Cardio regular rate, regular rhythm, S1 normal heart sound, S2 normal heart sound and no gallops Cardio Narrative: No ectopy. She has not had any AF when I have examined her during the admission to the rehab unit. GI normal to inspection, nondistended, normoactive bowel sounds, soft to palpation and non-tender GI Narrative: No guarding with palpation. Extremity no calf tenderness General Extremity: Negative for edema Skin General Skin Exam: no breakdown Rashes: no rashes Neuro Neuro Narrative: Less ptosis in the R upper eyelid. She has 5/5 strength in all extremities. Still with decreased sensation in the R face, arm and leg. Burning pain on the R side has resolved with the increase in the Gabapentin. Coordination / Balance: [id number] test normal and [id number] test normal Assessment & Plan Assessment/Plan (1) Physical debility: PLAN: Continue therapy. (2) Ischemic cerebrovascular accident (CVA): PLAN: Multiple RF's including HTN, Glucose intolerance, HLD, untreated sleep apnea. We discussed all of these things today and she understands that even t tamara we control HTN and HLD and she is on an antiplatelet agent IF the JANE remains untreated she is at increased risk for another stroke. She is agreeable to following up with Pulmonary for another sleep study. She may do better with BIPAP because she tells me that the mask is too tight and she feels as though she is suffocating. 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 (4) JANE (obstructive sleep apnea): PLAN: Will get an overnight trending pulse ox to see if we need to Prescribe Oxygen at night until she can follow up with pulmonary to have a repeat sleep study, and be treated. (5) HTN (hypertension): PLAN: Well controlled. PLAN: Plan 1. BMP, H&H, hemoglobin A1c in the a.m. 2. Continue therapy Charges/Coding Visit Charges Inpatient E&M: 26781 Subs Hosp L2
[2022-04-16 19:13] VITALS: BP 133/53; PULSE 68; RESP 16; TEMP 36.6; O2SAT 97
[2022-04-16] MEDS: Gabapentin 800 MG Tablet PO (20:52)
[2022-04-16] MEDS: Acetaminophen 500 MG Tablet 1000 MG PO (20:56)
[2022-04-16] MEDS: Atorvastatin Calcium 40 MG Tablet PO (21:01)
[2022-04-16] MEDS: Montelukast 10 MG Tablet PO (21:01)
[2022-04-16 22:00] VITALS: PULSE 68; RESP 16; O2SAT 97
[2022-04-17 05:27] LABS: Hematocrit 35.3 % (37-47); Hemoglobin 11.1 g/dL (12.0-15.0)
[2022-04-17 05:47] LABS: Anion Gap 4 (5-15); BUN 17 mg/dL (7-18); BUN/Creat Ratio 21.2 RATIO (10-20); Calcium,Total 9.2 mg/dL (8.5-10.1); Chloride 104 mmol/L (98-107); EST Glomerular Filtration Rate 75 mL/min (>60); Est Glom Filt Rate - Afr Amer 91 mL/min (>60); Estimated Creatinine Clearance 57.31 ml/min; Glucose 121 mg/dL (74-106); Potassium 4.5 mmol/L (3.5-5.1); Sodium Level 139 mmol/L (136-145)
[2022-04-17] MEDS: Nystatin Powder 15gm Bottle 1 APPLIC TOPICAL ×2 (06:10→21:08)
[2022-04-17] MEDS: Enoxaparin 40 MG/0.4 ML Syringe SC (06:10)
[2022-04-17 07:31] VITALS: BP 124/70; PULSE 66; RESP 16; TEMP 36.2; O2SAT 98
[2022-04-17] MEDS: Fluticasone 0.05% 1 SPRAY NASAL.SRY 2 SPRAY NASAL (07:51)
[2022-04-17] MEDS: Ascorbic Acid 500 MG Tablet PO (07:52)
[2022-04-17] MEDS: Pantoprazole Sodium 40 MG Tablet PO (07:52)
[2022-04-17] MEDS: Sertraline 50 MG Tablet 25 MG PO ×2 (07:52→21:07)
[2022-04-17] MEDS: Clopidogrel Bisulfate 75 MG Tablet PO (07:52)
[2022-04-17] MEDS: Senna/Docusate Sodium 1 Tablet 2 TABLET PO ×2 (07:52→21:07)
[2022-04-17] MEDS: amLODIPine 2.5 MG Tablet PO (07:52)
[2022-04-17] MEDS: Gabapentin 400 MG Capsule PO ×2 (07:52→17:01)
[2022-04-17] MEDS: Aspirin 81 MG TAB.CHEW PO (07:53)
[2022-04-17] MEDS: Multivitamins,Therapeutic Tablet 1 TABLET PO (07:53)
[2022-04-17] MEDS: Propranolol LA 60 MG Capsule 120 MG PO (07:53)
[2022-04-17] MEDS: Tolterodine Tartrate 4 MG CAP.SA PO (07:53)
[2022-04-17] MEDS: Cholecalciferol (VIT D3) 25 MCG TABLET (1,000 UNITS) PO (07:53)
--- NOTE | 2022-04-17 11:23 | PCM.PROGNOTE ---
Subjective Subjective Afebrile Blood pressure is well controlled Maintaining appropriate oxygen saturation on room air while awake. No tachycardia. Weight is decreased approximately 4 and half pounds since admission. Good intake. All lab was personally reviewed. Hemoglobin stable at 11.1. Potassium is 4.5 and sodium is within normal limits. The BUN is 17 with a stable creatinine at 0.8. Serum bicarb is high normal at 31. FBS today is 121. HGBa1C is down to 6.0 since she is more aware of carb control to prevent progressing to DM II in the future. She is also trying to lose some weight. She has agreed to follow up with Dr. Arteaga or Dr. Macias for JANE going forward and nursing will schedule an appt with her. Objective Data Objective Data Vital Signs: Vital Signs Temp Pulse Resp BP Pulse Ox O2 Del Method 97.2 F L 66 16 124/70 H 98 Room Air 04/17/22 07:31 04/17/22 07:31 04/17/22 07:31 04/17/22 07:31 04/17/22 07:31 04/17/22 07:31 Oxygen Delivery Method Room Air Weight: 190 lb 11.198 oz Body Mass Index (BMI) 32.9 Intake & Output: Intake and Output for Last 24 Hours 04/15/22 04/16/22 04/17/22 23:59 23:59 23:59 Intake Total 1320 / 1320 500 / 500 Balance 1320 / 1320 500 / 500 Lab / Micro Data Result Diagrams: 04/17/22 05:21 04/17/22 05:21 Labs: Laboratory Results - last 24 hr 04/17/22 05:21: Hgb 11.1 L, Hct 35.3 L 04/17/22 05:21: Sodium 139, Potassium 4.5, Chloride 104, Carbon Dioxide 31.0, Anion Gap 4 L, BUN 17, Creatinine 0.80, Estim Creat Clear Calc 57.31, Est GFR (MDRD) Af Amer 91, Est GFR (MDRD) Non-Af 75, BUN/Creatinine Ratio 21.2 H, Glucose 121 H, Calcium 9.2 04/17/22 05:21: Hemoglobin A1c 6.0 H Micro: Microbiology 04/04/22 17:18 Stool Stool Occult Blood (HAKEEM) - Final Physical Exam Const alert and no apparent distress Constitutional Narrative: Affect is a little flat today General Appearance: cooperative Resp normal respiratory effort and clear to auscultation bilaterally Cardio regular rate, regular rhythm, no murmurs and no gallops GI normal to inspection, nondistended, normoactive bowel sounds, soft to palpation and non-tender Extremity no calf tenderness General Extremity: Negative for edema Assessment & Plan Assessment/Plan (1) Physical debility: PLAN: Continue therapy. (2) Ischemic cerebrovascular accident (CVA): PLAN: She has stenotic lesions in the arteries of the brain but, due to untreated sleep apnea she may also be having PAF. Order an overnight trending pulse ox tonight. (3) HTN (hypertension): PLAN: well controlled. (4) Normochromic normocytic anemia: PLAN: stool is heme negative. Etiology? RDW is normal. Check a TSH PLAN: Plan 1. Schedule an appt with Pulmonary PA to arrange for OP sleep study following Dc from rehab. Then will follow up with aquatics lifeguard. 2. Overnight trending pulse ox tonight 3. 30-day event monitor at discharge. Charges/Coding Visit Charges Inpatient E&M: 05169 Subs Hosp L2
[2022-04-17 12:25] LABS: Thyroid Stim Hormone (TSH) 3.14 uIU/mL (0.358-3.74)
[2022-04-17 19:18] VITALS: BP 108/52; PULSE 70; RESP 18; TEMP 36.6; O2SAT 98
[2022-04-17] MEDS: Acetaminophen 500 MG Tablet 1000 MG PO (21:04)
[2022-04-17] MEDS: Montelukast 10 MG Tablet PO (21:08)
[2022-04-17] MEDS: Atorvastatin Calcium 40 MG Tablet PO (21:08)
[2022-04-17] MEDS: Gabapentin 800 MG Tablet PO (21:13)
[2022-04-17 21:24] VITALS: BMI 32.9
[2022-04-17 21:33] VITALS: PULSE 65; O2SAT 98
[2022-04-17 22:00] VITALS: PULSE 70; RESP 15; O2SAT 98
[2022-04-17] MEDS: Mag Hydrox/Al Hydrox/Simeth 30 ML UDC PO (22:51)
[2022-04-18] MEDS: Enoxaparin 40 MG/0.4 ML Syringe SC (06:08)
[2022-04-18] MEDS: Nystatin Powder 15gm Bottle 1 APPLIC TOPICAL ×2 (06:11→21:20)
[2022-04-18 07:27] VITALS: BP 129/57; PULSE 64; RESP 15; TEMP 36.2; O2SAT 96
[2022-04-18] MEDS: Fluticasone 0.05% 1 SPRAY NASAL.SRY 2 SPRAY NASAL (08:15)
[2022-04-18] MEDS: amLODIPine 2.5 MG Tablet PO (08:16)
[2022-04-18] MEDS: Clopidogrel Bisulfate 75 MG Tablet PO (08:16)
[2022-04-18] MEDS: Ascorbic Acid 500 MG Tablet PO (08:16)
[2022-04-18] MEDS: Gabapentin 400 MG Capsule PO ×2 (08:16→17:13)
[2022-04-18] MEDS: Cholecalciferol (VIT D3) 25 MCG TABLET (1,000 UNITS) PO (08:16)
[2022-04-18] MEDS: Tolterodine Tartrate 4 MG CAP.SA PO (08:16)
[2022-04-18] MEDS: Aspirin 81 MG TAB.CHEW PO (08:16)
[2022-04-18] MEDS: Multivitamins,Therapeutic Tablet 1 TABLET PO (08:16)
[2022-04-18] MEDS: Sertraline 50 MG Tablet 25 MG PO ×2 (08:16→21:09)
[2022-04-18] MEDS: Pantoprazole Sodium 40 MG Tablet PO (08:16)
[2022-04-18] MEDS: Propranolol LA 60 MG Capsule 120 MG PO (08:16)
[2022-04-18] MEDS: Senna/Docusate Sodium 1 Tablet 2 TABLET PO ×2 (08:17→21:10)
[2022-04-18 12:54] VITALS: BMI 32.9
[2022-04-18] MEDS: Atorvastatin Calcium 40 MG Tablet PO (21:10)
[2022-04-18] MEDS: Montelukast 10 MG Tablet PO (21:10)
[2022-04-18] MEDS: Gabapentin 800 MG Tablet PO (21:10)
[2022-04-18] MEDS: Mag Hydrox/Al Hydrox/Simeth 30 ML UDC PO (21:15)
[2022-04-18] MEDS: Acetaminophen 500 MG Tablet 1000 MG PO (21:16)
[2022-04-18 22:00] VITALS: BP 118/67; PULSE 64; RESP 14; TEMP 36.5; O2SAT 96
[2022-04-19 05:00] VITALS: BMI 32.9
[2022-04-19] MEDS: Enoxaparin 40 MG/0.4 ML Syringe SC (06:32)
[2022-04-19] MEDS: Nystatin Powder 15gm Bottle 1 APPLIC TOPICAL ×2 (06:32→21:37)
[2022-04-19 07:15] VITALS: BP 125/56; PULSE 63; RESP 14; TEMP 36.5; O2SAT 97
[2022-04-19] MEDS: Gabapentin 400 MG Capsule PO ×2 (08:16→16:13)
[2022-04-19] MEDS: Fluticasone 0.05% 1 SPRAY NASAL.SRY 2 SPRAY NASAL (08:16)
[2022-04-19] MEDS: amLODIPine 2.5 MG Tablet PO (08:17)
[2022-04-19] MEDS: Propranolol LA 60 MG Capsule 120 MG PO (08:17)
[2022-04-19] MEDS: Multivitamins,Therapeutic Tablet 1 TABLET PO (08:17)
[2022-04-19] MEDS: Sertraline 50 MG Tablet 25 MG PO ×2 (08:17→21:35)
[2022-04-19] MEDS: Clopidogrel Bisulfate 75 MG Tablet PO (08:17)
[2022-04-19] MEDS: Ascorbic Acid 500 MG Tablet PO (08:17)
[2022-04-19] MEDS: Pantoprazole Sodium 40 MG Tablet PO (08:17)
[2022-04-19] MEDS: Cholecalciferol (VIT D3) 25 MCG TABLET (1,000 UNITS) PO (08:17)
[2022-04-19] MEDS: Tolterodine Tartrate 4 MG CAP.SA PO (08:17)
[2022-04-19] MEDS: Senna/Docusate Sodium 1 Tablet 2 TABLET PO (08:17)
[2022-04-19] MEDS: Aspirin 81 MG TAB.CHEW PO (08:17)
--- NOTE | 2022-04-19 09:46 | PN_ITS ---
Subjective Subjective Shira was seen on team rounds today. Her Pilo was present in the room. Afebrile VSS-blood pressure is well controlled. Maintaining appropriate oxygen saturation on RA Oral intake is good Discussed with nursing - no problems that need addressed Reviewed the PT/OT/ST notes Medication list reviewed. I observed Shira walking with the FWW today and gait is more fluid and at a normal pace now with reciprocal step pattern. Modified Frederick score is now 2, down from 3 at admission. Able to go from seated to standing from various surfaces including a low bench outdoors, the recliner and wheelchair at sup ervision level with the patient using safe hand placement and sequencing throughout. Continues to complain of paresthesias on the right side but they have improved somewhat. No burning pain on the right side now. Shira denies chest pain, calf tenderness, shortness of breath, palpitations, lightheadedness, constipation and dysuria. I reviewed the overnight trending pulse ox and it is abnormal. She had 11 total desaturation events last 10 sec or greater with the longest being 22 sec and augustus aturating to 78%. She is going to follow up with pulmonary medicine post DC to arrange a new sleep study. Objective Data Objective Data Vital Signs: Vital Signs Temp Pulse Resp BP Pulse Ox O2 Del Method O2 Flow Rate 97.7 F L 63 14 125/56 H 97 Room Air 0 04/19/22 07:15 04/19/22 07:15 04/19/22 07:15 04/19/22 07:15 04/19/22 07:15 04/19/22 07:15 04/17/22 21:33 FiO2 21 04/17/22 21:33 Oxygen Flow Rate (L/min) 0 Oxygen Delivery Method Room Air Weight: 193 lb 9.054 oz Body Mass Index (BMI) 32.9 Intake & Output: Intake and Output for Last 24 Hours 04/17/22 04/18/22 04/19/22 23:59 23:59 23:59 Intake Total 1150 / 1150 Output Total 400 / 400 300 / 300 Balance 750 / 750 -300 / -300 Lab / Micro Data Result Diagrams: 04/17/22 05:21 04/17/22 05:21 Micro: Microbiology 04/04/22 17:18 Stool Stool Occult Blood (HAKEEM) - Final Physical Exam Const alert, oriented x3 and no apparent distress Resp Resp Narrative: Normal respiratory effort with good air exchange throughout. Lungs are clear to auscultation with no crackles, wheezes or rhonchi. No conversational dyspnea. Cardio Cardio Narrative: Regular rate and rhythm, no murmur, no gallop, no rub. No ectopy. GI GI Narrative: Soft, nontender, nondistended, normal bowel sounds, no guarding with palpation. Having regular bowel movements. Extremity Extremity Narrative: No peripheral edema, no calf tenderness. Skin Skin Narrative: No rashes, no skin breakdown. Neuro Neuro Narrative: Still with right side paresthesias of the face arm and leg. Not painful but, annoying. Psych Psych Narrative: Calm, engaging, appropriate, making good eye contact. Assessment & Plan Assessment/Plan (1) Physical debility: PLAN: Continue therapy. We discussed discharging on Saturday to home and this is her desire. TEAM agrees she will be safe at home and will discharge earlier than the next update. He has installed grab bars in the shower. She will need a WW at DC and the will order. She will have OP therapy post DC at [facility]. (2) Ischemic cerebrovascular accident (CVA): PLAN: I talked with Pilo and Shira today about the increased risk of strokes due to untreated JANE. We also discussed all the adverse results of not treating sleep apnea including but not limited to RLS, memory difficulties, PAF, pulmonary HTN, cardiac dysrhythmias. (3) Cerebrovascular disease: (4) Right hemiparesis: PLAN: Much improvement. Strength has been steadily increasing. Most of her complaints at this time have to do with paresthesias. (5) Facial droop due to acute cerebrovascular accident (CVA): PLAN: Very minimal now. The ptosis of the R eye is also minimal. (6) Normochromic normocytic anemia: PLAN: Stable. Stool is heme negative. Etiology? (7) JANE (obstructive sleep apnea): PLAN: Will follow up with pulmonary to schedule formal sleep study and recommend appropriate treatment. 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 Charges/Coding Visit Charges Inpatient E&M: 99240 Subs Hosp L2
[2022-04-19] MEDS: Mag Hydrox/Al Hydrox/Simeth 30 ML UDC PO ×2 (10:35→23:03)
--- NOTE | 2022-04-19 12:46 | CASEMGMT ---
Social Work IDT met with patient and for Team meeting. Discussed progress in PT/OT/ST/SN. Explained [facility] insurance with [employer] 04/24 and continued stay is not guaranteed. IDT and pt agree pt is ready to DC on 04/03. IDT recommends outpatient therapy and pt agreeable to [facility] Referral faxed for PT/OT/ST. Pt needs FWW. [place] [facility]. educated to risk of untreated sleep apnea and pt not wearing cpap or O2 at night. RT confirmed cpap fits and works properly. encouraged to wear at home consistently. Plan: DC home with 04/22, [facility] PT/OT/ST, FWW Theodora Cook, DRIVE IN TELLER LICENSED EMBALMER SUPERVISOR
[2022-04-19 13:15] VITALS: BMI 32.9
[2022-04-19 20:22] VITALS: BP 126/55; PULSE 65; RESP 17; TEMP 36.6; O2SAT 100
[2022-04-19] MEDS: Gabapentin 800 MG Tablet PO (20:45)
[2022-04-19] MEDS: Acetaminophen 500 MG Tablet 1000 MG PO (21:34)
[2022-04-19 21:35] VITALS: BMI 32.9
[2022-04-19] MEDS: Montelukast 10 MG Tablet PO (21:35)
[2022-04-19] MEDS: Atorvastatin Calcium 40 MG Tablet PO (21:35)
[2022-04-20] MEDS: Nystatin Powder 15gm Bottle 1 APPLIC TOPICAL ×2 (06:02→20:36)
[2022-04-20] MEDS: Enoxaparin 40 MG/0.4 ML Syringe SC (06:02)
[2022-04-20 07:42] VITALS: BP 135/63; PULSE 65; RESP 18; TEMP 36.4; O2SAT 95
[2022-04-20] MEDS: Ascorbic Acid 500 MG Tablet PO (08:10)
[2022-04-20] MEDS: amLODIPine 2.5 MG Tablet PO (08:10)
[2022-04-20] MEDS: Gabapentin 400 MG Capsule PO ×2 (08:10→17:17)
[2022-04-20] MEDS: Tolterodine Tartrate 4 MG CAP.SA PO (08:10)
[2022-04-20] MEDS: Sertraline 50 MG Tablet 25 MG PO ×2 (08:11→20:35)
[2022-04-20] MEDS: Propranolol LA 60 MG Capsule 120 MG PO (08:11)
[2022-04-20] MEDS: Cholecalciferol (VIT D3) 25 MCG TABLET (1,000 UNITS) PO (08:11)
[2022-04-20] MEDS: Multivitamins,Therapeutic Tablet 1 TABLET PO (08:11)
[2022-04-20] MEDS: Aspirin 81 MG TAB.CHEW PO (08:12)
[2022-04-20] MEDS: Fluticasone 0.05% 1 SPRAY NASAL.SRY 2 SPRAY NASAL (08:12)
[2022-04-20] MEDS: Clopidogrel Bisulfate 75 MG Tablet PO (08:13)
[2022-04-20] MEDS: Pantoprazole Sodium 40 MG Tablet PO (08:13)
[2022-04-20] MEDS: Mag Hydrox/Al Hydrox/Simeth 30 ML UDC PO ×2 (08:49→22:23)
[2022-04-20 13:26] VITALS: BMI 32.9
[2022-04-20 20:31] VITALS: BP 125/52; PULSE 68; RESP 17; TEMP 36.9; O2SAT 98
[2022-04-20] MEDS: Atorvastatin Calcium 40 MG Tablet PO (20:35)
[2022-04-20] MEDS: Montelukast 10 MG Tablet PO (20:35)
[2022-04-20] MEDS: Gabapentin 800 MG Tablet PO (20:35)
[2022-04-20] MEDS: Acetaminophen 500 MG Tablet 1000 MG PO (20:39)
[2022-04-20 21:43] VITALS: BMI 32.9
[2022-04-21] MEDS: Enoxaparin 40 MG/0.4 ML Syringe SC (06:34)
[2022-04-21] MEDS: Nystatin Powder 15gm Bottle 1 APPLIC TOPICAL ×2 (06:36→20:35)
[2022-04-21] MEDS: Aspirin 81 MG TAB.CHEW PO (08:59)
[2022-04-21] MEDS: Cholecalciferol (VIT D3) 25 MCG TABLET (1,000 UNITS) PO (08:59)
[2022-04-21] MEDS: Ascorbic Acid 500 MG Tablet PO (09:00)
[2022-04-21] MEDS: Fluticasone 0.05% 1 SPRAY NASAL.SRY 2 SPRAY NASAL (09:00)
[2022-04-21] MEDS: Propranolol LA 60 MG Capsule 120 MG PO (09:00)
[2022-04-21] MEDS: Tolterodine Tartrate 4 MG CAP.SA PO (09:01)
[2022-04-21] MEDS: Sertraline 50 MG Tablet 25 MG PO ×2 (09:01→20:33)
[2022-04-21] MEDS: Multivitamins,Therapeutic Tablet 1 TABLET PO (09:01)
[2022-04-21] MEDS: amLODIPine 2.5 MG Tablet PO (09:01)
[2022-04-21] MEDS: Clopidogrel Bisulfate 75 MG Tablet PO (09:02)
[2022-04-21] MEDS: Pantoprazole Sodium 40 MG Tablet PO (09:03)
[2022-04-21] MEDS: Gabapentin 400 MG Capsule PO ×2 (09:07→16:27)
[2022-04-21] MEDS: Mag Hydrox/Al Hydrox/Simeth 30 ML UDC PO ×2 (09:37→20:32)
[2022-04-21 10:00] VITALS: BP 140/73; PULSE 64; RESP 16; TEMP 36.4; O2SAT 98
--- NOTE | 2022-04-21 11:50 | DCINST_ITS ---
Discharge Instructions Diet Discharge Diet: - (Carb controlled, low salt and low fat. ) Activity Discharge Activity: May Not Drive and May Shower Weight Bearing Status: Full weight bearing Additional Activity Instructions:: If your legs swell at home elevate them. Dressing / Incision Call your doctor if you observe: Fever of 101 or Higher, Shortness of breath, Dizziness, Fainting spells, Swelling in the ankles, Chest pain, Increased palpitations (irregular heartbeat), Calf discomfort and - (Insert stroke symptoms) Follow Up Care Please Follow Up With: Nimisha Olvera MD When: within 1-2 weeks post DC. Will also need to follow up with pulmonary, neurology and Dr. Pro. Test Results: Test results from this visit will be discussed in further detail at your follow- up appointment, if applicable. 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 You have recovered quite well from the stoke. Nerves heal quite slowly and it takes time for the brain to develop alternate pathways around the stroke damaged area of the brain and improve nerve function. There is a good chance the numbness on your right side will improve or may even resolve. You have several risk factors for stroke. You are over the age of 55, you have High blood pressure, your Cholesterol if higher than it should be, you are prediabetic and you have untreated sleep apnea. Your oxygen drops at night when you are sleeping and this can lead to a heart dysrhythmia called Atrial fibrillation or AFIB. AFib increases the risk of stroke significantly. 2. Goals for preventing another stroke: a. Keep your BP less than 130/80 b. Control your carbohydrate intake and keep the HGBA1C < 7.0. Right now the HGBA1C is 6.0 which is down from 6.3 at the time you had the stroke so keep up the good work. c. Exercise regularly. It helps to keep the blood sugar lower and it helps to prevent strokes and heart attacks. It also decreases the incidence of dementia. d. Keep the bad cholesterol (LDL) 70 or less. Your LDL was 176 in 2013 and it was 155 when you had the stroke. Also the GOOD cholesterol (HDL) is low at 33 and in a woman we like to see this > 45. Exercise helps to increase the HDL. e. Try an lose some weight. This will help lower the BP and you will be less likely to develop diabetes. Right now with a HGBA1C of 6.0 you are considered pre-diabetic. f. Get the sleep apnea treated. I am sending you home with a heart monitor you will wear for 30 days and it will tell us if you are having AFIB when the oxygen drops when you are sleeping. If you have AF you will need to be on an anticoagulant such as Warfarin(Coumadin) or Eliquis or Xarelto. 3. Know the stroke warning signs/symptoms. IF you have any of these symptoms do NOT drive yourself to the ER and do not have a friend or relative drive you to the ED. CALL 911 and have the squad take you to the ER. The longer it takes you to get to the ER after you start having symptoms the more brain tissue that is lost so CALL 911......they can alert the ER that you are coming and this allows them a few minutes to get you right into the ED and then to CT scan. 4. It has been a pleasure meeting you and [place] and I hope we have enlightened you somewhat on how to take care of yourself to avoid another stroke or a heart attack. Remember that [facility] has a stroke Group that meets monthly and provides further education for stroke survivors and their families. It also gives you an opportunity to get your questions answered. 5. You have had heartburn for years. You still had symptoms while taking Nexium and Pepcid. I now have you on Protonix twice a day. Sometimes long standing heartburn can lead to changes in the lining of the esophagus called Ma's esophagus. I think it would be a good idea to see Dr. Faustin (health and wellness coach at the hospital) and have him look at your esophagus and stomach with a scope to make sure there is not something other than simple heartburn going on. 6. You are not allergic to Atorvastatin (Lipitor). You have been taking it since you arrived in rehab and you have had no adverse reactions. You should have a lipid panel and a liver panel in 4 weeks to see if the cholesterol is under control. You have a very mild increase in some of the liver tests......it may be due to fat deposition in theliver which happen to people with high cholesterol. Lipitor is rare cases can make the liver test go up and this is why we check them 6 weeks after you start the medications. 7. If you have any questions after you leave rehab please do not hesitate to call me at: Office: [phone] Take care Shira and if you are in the building stop by for a visit and let us know how you are doing. Discharge Orders/Prescriptions Prescriptions: New gabapentin 400 mg Capsule See Rx Instructions .ROUTE .COMPLEX Qty: 120 0RF Rx Instructions: take 1 tablet in the morning, 1 tab with supper and 2 tabs at 9 PM propranolol 60 mg Capsule,Extended Release 24 Hr 120 mg PO DAILY Qty: 30 0RF pantoprazole 40 mg Tablet,Delayed Release (Dr/Ec) 40 mg PO BIDCM Qty: 60 0RF Continued multivitamin [Daily Multiple] 1 EACH tablet 1 ea PO DAILY Label Comments: Supplement ascorbic acid (vitamin C) [C-1000] 1,000 MG tablet 500 mg PO DAILY Label Comments: Vitamin C supplement sertraline 50 MG tablet 25 mg PO BID Label Comments: Depression/anxiety cholecalciferol (vitamin D3) [Vitamin D3] 1,000 UNIT tablet 1,000 unit PO DAILY amlodipine [Norvasc] 2.5 mg Tablet 2.5 mg DAILY aspirin 81 mg Tablet 81 mg PO DAILY acetaminophen [Tylenol] 325 mg Tablet 1,000 mg PO Q6H PRN (Reason: Pain (Scale Score 1-10)) tolterodine [Detrol LA] 4 mg Capsule,Extended Release 24hr 4 mg PO Q24H montelukast [Singulair] 10 mg Tablet 10 mg PO QHS fluticasone propionate 50 mcg/actuation [place],Suspension 2 spray INTRANASAL DAILY Rx Instructions: administer into each nostril coenzyme Q10 [Co Q-10] 200 mg Capsule 200 mg PO DAILY atorvastatin 40 mg Tablet 40 mg PO DAILY Qty: 30 0RF clopidogrel 75 mg Tablet 75 mg PO DAILY Qty: 30 0RF Discontinued propranolol 20 mg tablet 120 mg PO DAILY Label Comments: daily famotidine 40 mg Tablet 40 mg PO DAILY gabapentin 300 mg Tablet 300 mg PO TID Referrals / Follow Up: Dr. Garcia (neurology) [Other] - 05/24/22 10:00 am [facility] [Provider Group] - 04/23/22 10:45 am (apt with dr hobson ) Monse Pro MD [Med Staff - Active Staff] - 04/30/22 11:00 am (office will mail new patient paper work to fill out. ) Eulalio Healy MD [Primary Care Provider] - 05/02/22 11:15 am Disposition Disposition (needs filled in before D/C Order can be placed): Home, Self Care
--- NOTE | 2022-04-21 12:41 | PCM.DC.SUM ---
Providers Date of Admission: 04/03/22 Date of Discharge: 04/22/22 Primary Care Physician: Dr. Pinky Olvera Reason For Visit: STROKE Diagnosis Discharge Diagnosis (1) Physical debility: Status: Acute Code(s): R53.81 - Other malaise Plan: Will follow up at [facility] for additional therapy post DC. (2) Ischemic cerebrovascular accident (CVA): Status: Acute Code(s): I63.9 - Cerebral infarction, unspecified (3) Cerebrovascular disease: Status: Acute Code(s): I67.9 - Cerebrovascular disease, unspecified Plan: diffuse (4) Right hemiparesis: Status: Acute Code(s): G81.91 - Hemiplegia, unspecified affecting right dominant side Plan: Much improvement. Strength has been steadily increasing. Most of her complaints at this time have to do with paresthesias. (5) Facial droop due to acute cerebrovascular accident (CVA): Status: Acute Code(s): I63.9 - Cerebral infarction, unspecified; R29.810 - Facial weakness Plan: Very minimal now. The ptosis of the R eye is also minimal. (6) Normochromic normocytic anemia: Status: Acute Code(s): D64.9 - Anemia, unspecified Plan: Stable. Stool is heme negative. Etiology? She was instructed to follow up with Dr. Faustin. Has long standing GERD that has not improved with Pepcid or Nexium. Somewhat better with Protonix. she is at risk for Ma's. (7) JANE (obstructive sleep apnea): Status: Acute Code(s): G47.33 - Obstructive sleep apnea (adult) (pediatric) Plan: Will follow up with pulmonary to schedule formal sleep study and recommend appropriate treatment. She was first diagnosed 5 years ago and CPAP was ordered but, she has not worn CPAP now in last 4 years at least. Says the mask is too tight. 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 (9) Chronic central neuropathic pain: Status: Acute Code(s): M79.2 - Neuralgia and neuritis, unspecified; G89.29 - Other chronic pain Plan: Improved with increase in the Gabapentin doses. (10) GERD (gastroesophageal reflux disease): Status: Acute Code(s): K21.9 - Gastro-esophageal reflux disease without esophagitis Plan: Follow up with Dr. Faustin. (11) Prediabetes: Status: Acute Code(s): R73.03 - Prediabetes Plan: HGBA1C was 6.3 at the time of the stroke. (12) Abnormal transaminases: Status: Acute Code(s): R74.8 - Abnormal levels of other serum enzymes Plan: Very mildly elevated. May be due to fatty liver from having a high LDL for many years. (13) HTN (hypertension): Status: Chronic Code(s): I10 - Essential (primary) hypertension Plan: Controlled (14) HLD (hyperlipidemia): Status: Chronic Code(s): E78.5 - Hyperlipidemia, unspecified Plan: Tolerating Lipitor with no adverse side effects. Will need a follow up lipid panel and liver profile in another 3-4 weeks. (15) Overactive bladder: Status: Acute Code(s): N32.81 - Overactive bladder Plan: Plan to follow up with Dr. Monse Pro Plan 1. Discharge home 2. Outpatient therapy at [facility] 3. DME includes a front wheeled walker Medications at Discharge Home Medications ascorbic acid (vitamin C) 1,000 mg tablet (C-1000) 500 mg PO DAILY supplement 08/22/15 multivitamin (Daily Multiple tablet) 1 ea PO DAILY supplement 08/22/15 sertraline 50 mg tablet 25 mg PO BID treat depression 08/22/15 cholecalciferol (vitamin D3) 25 mcg (1,000 unit) tablet (Vitamin D3) 1,000 unit PO DAILY supplement 03/23/16 acetaminophen 325 mg tablet (Tylenol) 1,000 mg PO Q6H PRN Pain (Scale Score 1-10) 04/03/22 aspirin 81 mg tablet 81 mg PO DAILY anti-platelet 04/03/22 coenzyme Q10 200 mg capsule (Co Q-10) 200 mg PO DAILY supplement 04/03/22 fluticasone propionate 50 mcg/actuation nasal spray,suspension 2 spray intranasal DAILY allergy 04/03/22 montelukast 10 mg tablet (Singulair) 10 mg PO QHS asthma 04/03/22 tolterodine 4 mg capsule,extended release 24 hr (Detrol LA) 4 mg PO Q24H urinary retention 04/03/22 atorvastatin 40 mg tablet 40 mg PO DAILY HDL #30 tabs 04/21/22 clopidogrel 75 mg tablet 75 mg PO DAILY antiplatelet #30 tabs 04/21/22 gabapentin 400 mg capsule See Rx Instructions .Route .COMPLEX #120 caps 04/21/22 pantoprazole 40 mg tablet,delayed release 40 mg PO BIDCM #60 tabs 04/21/22 propranolol 60 mg capsule,24 hr,extended release 120 mg PO DAILY #30 caps 04/21/22 amlodipine 2.5 mg tablet (Norvasc) 2.5 mg PO DAILY #30 tabs 04/23/22 Hospital Course Operations None Procedures None Summary of Care Provided Minutes Spent on Discharge: 45 Hospital Course: FLOR MEDINA, is a 71 YO F with a PMH of hypertension, hyperlipidemia, bipolar 1 disorder, depression, GERD, Pre-diabetes, JANE (non-compliant with sleep apnea) and obesity who presented to the [facility] ED on 03/29/2022 complaining of right side numbness in the right face, right arm and right leg.? She denied weakness at that time.? Noncontrast CT brain was normal.? Lab was unremarkable and she was discharged home and instructed to follow-up with her primary care physician.? The following morning she was having difficulty ambulating and had weakness in her right hand.? She also had difficulty swallowing and felt as if her medications got stuck on the right side of her throat.? She was seen at [facility] ED.? NIHSS was 7.? CTA of the head/neck and brain CT revealed 17% stenosis of the cervical right internal carotid artery and 33% stenosis of the cervical left internal carotid artery.? Cervical vertebral arteries were patent.? She had bilateral MCA, bilateral PARACHUTE INSPECTOR and right PICA stenoses.? Teleneurology was consulted and she was felt to be outside the window for tPA.? She was admitted to the hospital and started on dual antiplatelet therapy.? Significant lab included an elevated hemoglobin A1c at 6.3, elevated triglycerides at 356, low HDL at 33 and an LDL of 155.? She has listed statins as an allergy due to rash.? She was willing to try atorvastatin and was started on 40 mg on 03/31/22.? She was evaluated by PT/OT/ST and admission to acute rehab was recommended.? She was transferred to the acute rehab unit at [facility] on 04/03/2022 for 3 hours of therapy daily to restore function/independence at or near her level prior to the recent stroke. Flor was tested for sleep apnea approximately 5 years ago. She was diagnosed with obstructive sleep apnea and prescribed CPAP however she only wore it for a very short time and felt the mask was too tight so she has not used it in at least 4 years. An overnight trending pulse ox was done while in rehab and was abnormal. She desaturates into the low 70s at times. The respiratory therapist checked her mask and it was fitting appropriately. I explained to Flor that untreated sleep apnea is a cause of atrial fibrillation which greatly increases the risk of an embolic CVA. We also explained that untreated sleep apnea is also associated with chronic fatigue, daytime somnolence, restless leg, memory difficulties and depression. She was agreeable to following up with pulmonary medicine post discharge from rehab to have a sleep study and discussed the results with the crime prevention police officer. Flor was also educated on the risk factors for stroke, what to do to prevent another stroke and what the goals for blood pressure and lipid control are post stroke. She had many questions and all were answered to her satisfaction. Flor has been on Gabapentin for radiculopathy of the LUE however, following the stroke she experienced central neuropathic pain on the R side. Gabapentin was increased to 400 mg BID and 800 mg at HS and this was effective in controlling the pain. She did very well in therapy. The modified [place] score decreased from 3 at admission to 2 at discharge. At the time of discharge she was able to do 15 stands in 30 seconds pushing up from the chair. She was able to do the tug test in 18.49 sec with no AD prior to DC and the goal was to do it in less than 30 sec. she is able to ambulate up to 727 feet with a wheeled walker on various surfaces including uneven ground outside. She is mod I with all activities of daily living but should have supervision with tub/shower transfer for the next week or 2. Her is able to provide this. Flor was discharged home on 04/22/22. She ill be going to [facility] for ongoing therapy post DC. The only DME required was a FWW. Because she has untreated sleep apnea a 30 day event monitor was ordered at [place] to look for AF and she will follow up with a gift manager from [facility]. She has an appt to follow up with pulmonary on 04/23/22 to arrange for a sleep study. She also has an appt with neurology and her PCP. She has issues with urinary urgency and overactive bladder and she has an appointment with Dr. Monse Pro on 04/30/2022 at 11 AM to be evaluated. She has many areas of stenosis in the cerebral circulation and she is prediabetic with an LDL of 155 and hypertension that was not adequately controlled. It would not be unreasonable to assume she may have CAD as well as cerebrovascular disease and when she has recovered from the stroke I recommend a pharmacologic stress to evaluate for CAD. Physical Exam Const alert, oriented x3, no apparent distress and well nourished General Appearance: cooperative HEENT normocephalic, moist oral mucous membranes and oropharynx normal HEENT Narrative: She has an overbite Eyes PERRL and EOMs intact bilaterally Eyes Narrative: No visual field cuts. No scleral icterus and no conjunctival injection. No discharge from the eyes and no mattering of the eyelids. Neck no lymphadenopathy and no carotid bruits General: trachea midline Resp Resp Narrative: Normal respiratory effort with good air exchange throughout. Lungs are clear to auscultation with no crackles, wheezes or rhonchi. No conversational dyspnea. Cardio Cardio Narrative: Regular rate and rhythm, no murmur, no gallop, no rub. No ectopy. GI GI Narrative: Soft, nontender, nondistended, normal bowel sounds, no guarding with palpation. Having regular bowel movements. Extremity Extremity Narrative: No peripheral edema, no calf tenderness. Skin Skin Narrative: No rashes, no skin breakdown. Neuro Neuro Narrative: Still with right side paresthesias of the face, arm and leg. Not painful but, annoying. Has only a trace of R facial droop at [place]. She has a normal tandem gait with good pace and no LOB at the time of DC. No ataxia. Psych Psych Narrative: Calm, engaging, appropriate, making good eye contact. Weight / BMI Weight Weight: 193 lb 9.054 oz Body Mass Index (BMI) 32.9 ABG / Lab / Microbiology Data Result Diagrams: 04/17/22 05:21 04/17/22 05:21 Microbiology: Microbiology 04/04/22 17:18 Stool Stool Occult Blood (HAKEEM) - Final D/C Instructions Discharge Diet: - (Carb controlled, low salt and low fat. ) Weight Bearing Status: Full weight bearing Additional Activity Instructions: If your legs swell at home elevate them. Call your doctor if you observe: Fever of 101 or Higher, Shortness of breath, Dizziness, Fainting spells, Swelling in the ankles, Chest pain, Increased palpitations (irregular heartbeat), Calf discomfort and - (Insert stroke symptoms) Pending Tests Upon Discharge: none Please Follow Up With: Nimisha Olvera MD When: within 1-2 weeks post DC. Will also need to follow up with pulmonary, neurology and Dr. Pro. Meaningful Use Info Meaningful Use Diagnoses (Choose all that apply): Ischemic CVA CVA Therapy Assessed for PT,OT and/or ST?: Yes Ischemic Stroke Antithrombotic order at d/c?: Yes Dx of Atrial fib/flutter?: No Anticoagulant at discharge?: No Reason anticoagulant not ordered: Treatment not Indicated Statins at discharge?: Yes Primary Dx Acute Ischemic CVA?: Yes IV tPA ordered during stay?: No Reason IV t-PA not ordered: Treatment not Indicated Discharge Plan Admission Admit Date/Time: 04/03/22 18:18 Primary Reason for Your Visit: Physical debility due to ischemic CVA Attending Provider: Bryanna Randall Primary Care Provider: Eulalio Healy Instructions Patient Instructions: What Are Snoring and Sleep Apnea?, Risk Factors for Stroke, AFib, Booklet - Understanding Stroke Additional Instructions / Restrictions: 1. You have recovered quite well from the stoke. Nerves heal quite slowly and it takes time for the brain to develop alternate pathways around the stroke damaged area of the brain and improve nerve function. There is a good chance the numbness on your right side will improve or may even resolve. You have several risk factors for stroke. You are over the age of 55, you have High blood pressure, your Cholesterol if higher than it should be, you are prediabetic and you have untreated sleep apnea. Your oxygen drops at night when you are sleeping and this can lead to a heart dysrhythmia called Atrial fibrillation or AFIB. AFib increases the risk of stroke significantly. 2. Goals for preventing another stroke: a. Keep your BP less than 130/80 b. Control your carbohydrate intake and keep the HGBA1C < 7.0. Right now the HGBA1C is 6.0 which is down from 6.3 at the time you had the stroke so keep up the good work. c. Exercise regularly. It helps to keep the blood sugar lower and it helps to prevent strokes and heart attacks. It also decreases the incidence of dementia. d. Keep the bad cholesterol (LDL) 70 or less. Your LDL was 176 in 2013 and it was 155 when you had the stroke. Also the GOOD cholesterol (HDL) is low at 33 and in a woman we like to see this > 45. Exercise helps to increase the HDL. e. Try an lose some weight. This will help lower the BP and you will be less likely to develop diabetes. Right now with a HGBA1C of 6.0 you are considered pre-diabetic. f. Get the sleep apnea treated. I am sending you home with a heart monitor you will wear for 30 days and it will tell us if you are having AFIB when the oxygen drops when you are sleeping. If you have AF you will need to be on an anticoagulant such as Warfarin(Coumadin) or Eliquis or Xarelto. 3. Know the stroke warning signs/symptoms. IF you have any of these symptoms do NOT drive yourself to the ER and do not have a friend or relative drive you to the ED. CALL 911 and have the squad take you to the ER. The longer it takes you to get to the ER after you start having symptoms the more brain tissue that is lost so CALL 911......they can alert the ER that you are coming and this allows them a few minutes to get you right into the ED and then to CT scan. 4. It has been a pleasure meeting you and [place] and I hope we have enlightened you somewhat on how to take care of yourself to avoid another stroke or a heart attack. Remember that [facility] has a stroke Group that meets monthly and provides further education for stroke survivors and their families. It also gives you an opportunity to get your questions answered. 5. You have had heartburn for years. You still had symptoms while taking Nexium and Pepcid. I now have you on Protonix twice a day. Sometimes long standing heartburn can lead to changes in the lining of the esophagus called Ma's esophagus. I think it would be a good idea to see Dr. Faustin (wood heel attacher at the hospital) and have him look at your esophagus and stomach with a scope to make sure there is not something other than simple heartburn going on. 6. You are not allergic to Atorvastatin (Lipitor). You have been taking it since you arrived in rehab and you have had no adverse reactions. You should have a lipid panel and a liver panel in 4 weeks to see if the cholesterol is under control. You have a very mild increase in some of the liver tests......it may be due to fat deposition in theliver which happen to people with high cholesterol. Lipitor is rare cases can make the liver test go up and this is why we check them 6 weeks after you start the medications. 7. If you have any questions after you leave rehab please do not hesitate to call me at: Office: [phone] Take care Flor and if you are in the building stop by for a visit and let us know how you are doing. Discharge Orders/Prescriptions Prescriptions: New gabapentin 400 mg Capsule See Rx Instructions .ROUTE .COMPLEX Qty: 120 0RF Rx Instructions: take 1 tablet in the morning, 1 tab with supper and 2 tabs at 9 PM propranolol 60 mg Capsule,Extended Release 24 Hr 120 mg PO DAILY Qty: 30 0RF pantoprazole 40 mg Tablet,Delayed Release (Dr/Ec) 40 mg PO BIDCM Qty: 60 0RF amlodipine [Norvasc] 2.5 mg tablet 2.5 mg PO DAILY Qty: 30 0RF Continued multivitamin [Daily Multiple] 1 EACH tablet 1 ea PO DAILY Label Comments: Supplement ascorbic acid (vitamin C) [C-1000] 1,000 MG tablet 500 mg PO DAILY Label Comments: Vitamin C supplement sertraline 50 MG tablet 25 mg PO BID Label Comments: Depression/anxiety cholecalciferol (vitamin D3) [Vitamin D3] 1,000 UNIT tablet 1,000 unit PO DAILY aspirin 81 mg Tablet 81 mg PO DAILY acetaminophen [Tylenol] 325 mg Tablet 1,000 mg PO Q6H PRN (Reason: Pain (Scale Score 1-10)) tolterodine [Detrol LA] 4 mg Capsule,Extended Release 24hr 4 mg PO Q24H montelukast [Singulair] 10 mg Tablet 10 mg PO QHS fluticasone propionate 50 mcg/actuation [place],Suspension 2 spray INTRANASAL DAILY Rx Instructions: administer into each nostril coenzyme Q10 [Co Q-10] 200 mg Capsule 200 mg PO DAILY atorvastatin 40 mg Tablet 40 mg PO DAILY Qty: 30 0RF clopidogrel 75 mg Tablet 75 mg PO DAILY Qty: 30 0RF Discontinued propranolol 20 mg tablet 120 mg PO DAILY Label Comments: daily famotidine 40 mg Tablet 40 mg PO DAILY gabapentin 300 mg Tablet 300 mg PO TID Other Ambulatory Orders: 30 Day Event Recorder Preventi (Urgent) Location: None Selected Ordered By: Dr. Bryanna Randall Referrals / Follow Up: Dr. Garcia (neurology) [Other] - 05/24/22 10:00 am Pulmonary Medicine [facility] [Provider Group] - 04/23/22 10:45 am (apt with dr hobson ) Monse Pro MD [Med Staff - Active Staff] - 04/30/22 11:00 am (office will mail new patient paper work to fill out. ) Eulalio Healy MD [Primary Care Provider] - 05/02/22 11:15 am Disposition Disposition (needs filled in before D/C Order can be placed): Home, Self Care Charges/Coding Visit Charges Inpatient E&M: [id number] Disch Hosp
[2022-04-21 14:38] VITALS: BMI 32.9
[2022-04-21 19:15] VITALS: BP 116/53; PULSE 67; RESP 16; TEMP 36.5; O2SAT 98
[2022-04-21] MEDS: Gabapentin 800 MG Tablet PO (20:32)
[2022-04-21] MEDS: Acetaminophen 500 MG Tablet 1000 MG PO (20:32)
[2022-04-21] MEDS: Montelukast 10 MG Tablet PO (20:35)
[2022-04-21] MEDS: Atorvastatin Calcium 40 MG Tablet PO (20:35)
[2022-04-21 20:45] VITALS: BMI 32.9
[2022-04-21 22:00] VITALS: PULSE 78; RESP 16; O2SAT 98
[2022-04-22] MEDS: Enoxaparin 40 MG/0.4 ML Syringe SC (05:59)
[2022-04-22] MEDS: Nystatin Powder 15gm Bottle 1 APPLIC TOPICAL (05:59)
[2022-04-22 07:00] VITALS: BP 139/65; PULSE 65; RESP 16; TEMP 36.5; O2SAT 97
[2022-04-22] MEDS: Gabapentin 400 MG Capsule PO (09:52)
[2022-04-22] MEDS: Sertraline 50 MG Tablet 25 MG PO (09:53)
[2022-04-22] MEDS: Clopidogrel Bisulfate 75 MG Tablet PO (09:54)
[2022-04-22] MEDS: Aspirin 81 MG TAB.CHEW PO (09:54)
[2022-04-22] MEDS: Pantoprazole Sodium 40 MG Tablet PO (09:54)
[2022-04-22] MEDS: Multivitamins,Therapeutic Tablet 1 TABLET PO (09:54)
[2022-04-22] MEDS: amLODIPine 2.5 MG Tablet PO (09:54)
[2022-04-22] MEDS: Ascorbic Acid 500 MG Tablet PO (09:55)
[2022-04-22] MEDS: Cholecalciferol (VIT D3) 25 MCG TABLET (1,000 UNITS) PO (09:55)
[2022-04-22] MEDS: Tolterodine Tartrate 4 MG CAP.SA PO (09:55)
[2022-04-22] MEDS: Propranolol LA 60 MG Capsule 120 MG PO (09:55)
[2022-04-22] MEDS: Fluticasone 0.05% 1 SPRAY NASAL.SRY 2 SPRAY NASAL (09:57)
[2022-04-22 10:12] VITALS: BMI 32.9
[2022-04-22 12:39] VITALS: BP 132/62; PULSE 66; RESP 18; TEMP 36.6; O2SAT 98
== END 2022-04-22 13:30 | disposition home or self-care (01) | DRG 57 ==
PROVIDERS: Admitting Provider Internal Medicine; PCP Family Medicine; Visit Provider Internal Medicine
DX: I69.351 Hemiplegia and hemiparesis following cerebral infarction affecting right dominant side (principal); I27.20 Pulmonary hypertension, unspecified; F31.9 Bipolar disorder, unspecified; I48.0 Paroxysmal atrial fibrillation; I10 Essential (primary) hypertension; G47.33 Obstructive sleep apnea (adult) (pediatric); K21.9 Gastro-esophageal reflux disease without esophagitis; E78.5 Hyperlipidemia, unspecified; I69.392 Facial weakness following cerebral infarction; I69.319 Unspecified symptoms and signs involving cognitive functions following cerebral infarction; Z79.02 Long term (current) use of antithrombotics/antiplatelets; R73.03 Prediabetes; N32.81 Overactive bladder; Z79.82 Long term (current) use of aspirin; Z79.899 Other long term (current) drug therapy; E66.9 Obesity, unspecified; Z68.32 Body mass index [BMI] 32.0-32.9, adult
CPT/HCPCS: 36415; 80048; 80053; 82274; 83036; 83735; 84100; 84443; 85014; 85018; 85025; 92507; 92523; 94762; 96125; 97110; 97116; 97129; 97130; 97162; 97166; 97530; 97535; 97802; 97803; 99251; G0463

== ENCOUNTER 2022-05-14 10:00 | Outpatient (RCR) | payer MEDICARE, SELFPAY ==
--- NOTE | 2022-04-24 11:14 | HP.PTEVAL_ITS ---
Patient's Visit Information FLOR MEDINA is a 71 year old F referred to Physical Therapy by Dr. Bryanna Randall DO with a diagnosis of CVA. Date of Evaluation: 04/24/22 Physical Therapist: Amita Gore DPT - Visit Plan Frequency: 2x /Week Duration: 4 Weeks Plan: Focus on LE and core strength/stabilization, proprioception and functional mobility. Reviewed HEP given at rehab - Subjective About 3 weeks ago she has a stroke and was in the hospital over in [place] for 3- 4 days and they found she had a stroke her right side. Fully I prior to admission- but she requires help with her ADL's. Lives with her in a single story home-with no stairs to enter. She sleeps in a regular bed. No AD prior to admission- and is now using a walker when she goes outside but she does not use an AD inside her home. She does feel off balance but has not had any falls since she has been home. She has been home for a few days- was in rehab at [facility] for about 2 weeks. She is having a sleep apnea test- she is just so tired all the time. Does not work- retired. She is more sedentary due to her left arm injury- so the last year has not been good- has had injections in her neck which helped a little bit. She does have some right foot pains- she is on gabapentin. She is not driving currently. She has N/T throughout the whole right side. PMHx/Meds: no changes since she left rehab. - Objective Posture: FH, RS increased kyphosis- can correct with verbal cues but does not maintain. Gait: antalgic- decreased stance on the right LE- veers to the right with FWW- SBA for safety without AD. Stairs: asc/desc 8 recip with a step to pattern- given VC's unable to coordinate recip pattern- bilateral HR and SBA. HR/TR; able without pain. SLS: weight shift but unable to SLS. ROM: WFL in all planes. Strength: Core: fair minus, Left: Hip: flexion: 4-/5, Extn: 4/5, Abd: 4/5, Add: 4/5, IR/ER: 4/5 neutral, Knee: Flexion: 4/5, Extn: 4/5, Ankle: 4+/5 throughout Right: Hip: flexion: 4/5, Extn: 4/5, Abd: 4+/5, Add: 4+/5, IR/ER: 4/5 neutral, Knee: Flexion: 4+/5, Extn: 4+/5, Ankle: 4+/5 throughout. Sensation: diminished in right to light touch - Balance/Special Test Scores Functional Gait Assessment Score: 12 % Disability: 60.0000 Lower Extremity Functional Score: 5 TUG Test Time Seconds: 18.65 - Goals Goal 1:: Patient will be I with HEP and progression Goal Time Frame: 4-6 Weeks Goal 2:: Patient will ambulate >300 feet with a normalized gait pattern and LRD Goal Time Frame: 4-6 Weeks Goal 3:: Patient will asc/desc 8 recip with 1 HR Goal Time Frame: 4-6 Weeks Goal 4:: Patient will improve her TUG to under 10 seconds Goal Time Frame: 4-6 Weeks Goal 5:: Patient will improve her FGA to WFL for her age Goal 6:: Patient will report 80% improvement Goal Time Frame: 4-6 Weeks - Rehabilitation Potential Physical Therapy Diagnosis: Patient presents with hypomobility- she has decreased LE and core strength/stabilization, proprioception, flex and muscular endurance leading to abnormal gait pattern, decreased balance and decreased participation in ADL's. Rehabilitation Potential: Good - Anticipated Interventions Patient/Client Instruction: Educate patient on: Benefits of Fitness Program Therapeutic Exercise to Include: Strength training, Endurance training, Balance training, Coordination, Agility training, Body mechanics, Postural training, Flexibilty training, Gait and locomotor training, Neuromotor development, Dynamic Lumbar Stabilization, Scapular Strength/Stabilization For the Purpose of:: To improve muscle performance and motor function Thank you for the opportunity to evaluate your patient. For Medicare and Medicare HMO plans, please review the plan of care and approve it. It will need to be FAXED BACK to us at [phone] for Medicare purposes. For Medicare only, by signing this I certify the plan of care. Please let me know if there are questions or concerns regarding this plan of care. Physician Signature: Date:
--- NOTE | 2022-04-24 15:46 | HP.SP.EVAL ---
History - History Date of Eval: 04/24/22 Medical Diagnosis (from RX): CVA Date of Onset of Diagnosis: 03/29/22 Previous speech therapy: Yes Results: stroke debility with dysphagia, right hemiparesis and right side paresthesias. Other Relevant Medical History/Diagnoses/Surgery: PMH of hypertension, hyperlipidemia, bipolar 1 disorder, depression and obesity who presented to the [facility] ED on 03/29/2022 complaining of right side numbness in the right face, right arm and right leg. She denied weakness at that time. Noncontrast CT brain was normal. Lab was unremarkable and she was discharged home and instructed to follow-up with her primary care physician. The following morning she was having difficulty ambulating and had weakness in her right hand. She also had difficulty swallowing and felt as if her medications got stuck on the right side of her throat. She was seen at [facility] ED. CTA of the head/neck and brain CT revealed 17% stenosis of the cervical right internal carotid artery and 33% stenosis of the cervical left internal carotid artery. Cervical vertebral arteries were patent. She had bilateral MCA, bilateral JOINTER SUBMARINE CABLE and right PICA stenoses. Teleneurology was consulted and she was felt to be outside the window for tPA. She was admitted to the hospital and started on dual antiplatelet therapy. Medications related to this diagnosis: atorvastatin, clopidogrel, gabapentin, pantoprazole, propranolol Smoking Status: Never smoker Hx Tobacco Use: No - Pain Is pain an issue with your current prescribed condition?: No Patient Allergies - Allergies Allergies codeine Allergy (Verified 04/23/22 10:30) Other Penicillins Allergy (Verified 04/23/22 10:30) Itching Uwvimco-FEL-RwQ Reductase Inhibitor [Ppztzoo-Xkq-Hab Reductase Inhibitor] Allergy (Verified 04/23/22 10:30) Unknown Sulfa (Sulfonamide Antibiotics) Allergy (Verified 04/23/22 10:30) Itching CLQT - CLQT CLQT Administered: Yes CLQT: Cognitive Linguistic Quick Test (CLQT) is a criterion - referenced assessment designed for adults between the ages of 18 and 89 with known or suspected neurological dysfuntions. The CLQT is to assess strength and weaknesses in five cognitive domains. Severity ratings are within normal limits, mild, moderate, severe deficits. The subtests are as follows: Date: 04/24/22 - Attention Attention: Mild - Memory Memory: Moderate - Executive Functions Executive Functions: Severe - Language Language: Mild - Visuospatial Skills Visuospatial Skills: Mild - Composite Severity Rating Composite Severity Rating: Moderate - CLQT Comments Comments Patient had difficulty attending to tasks. Recall tasks were significantly impaired with the patient recalling 02/17 details of a short story. She was unable to complete mazes which can be indicative of problem solving and planning deficits. She was below the criterion cut score on 5 subtests: story retelling, symbol trails, generative naming, mazes as well as design generation. At home she reports she is not allowed to drive, and she is not cooking or cleaning. She is not completing most daily tasks at home at this time. - In past 7 days I had to read something several times to understand it: Often (once a day) My thinking was slow: Very often (several times a day) I had to work really hard to pay attention or i would make a mistake: Sometimes (2-3 times) I had trouble concentrating: Very often (several times a day) - How much DIFFICULTY do you currently reading & following complex instructions (e.g. directions for new medication: Somewhat planning for & keeping appts that are not part of weekly routine: A little managing your time to do most of your daily activities: Cannot do learning new tasks or instructions: Somewhat - Neuro-QOL Score Raw Score: 18 T - Score: 33.0 Plan - Plan Plan: Speech therapy is warranted for moderate cognitive deficits following the patient's CVA. She exhibits deficits in recall skills, organizational skills, and high level cognitive linguistic tasks including but not limited to problem solving. - Recommendations Treatment Warranted: Yes Treatment Warranted: Cognition - Progress Prognosis: Good - Frequency Frequency: 2x /Week Duration: 2 Months Visits in this POC: 16 - Patient/Family Goal Patient/Family Goal: Patient goal is to recall things at home. - Goal #1-5 Goal #1: Patient will complete tasks related to problem solving, judgement and reasoning skills on 4/5 trials on 2/3 consecutive tasks to be able to complete functional ADL activities at home including medication management, money management, and potential driving. Goal #2: Patient will utilize recall strategies with minimal cues on 4/5 activities to complete activities of daily living ( example recall of appointments, medications, etc) on 2/3 consecutive sessions. Goal #3: Patient will complete recall tasks for recall of functional information including but not limited to daily appointments, medical information and daily sequencing of activities on 4/5 trials on 2/3 consecutive sessions. Education - Patient has Indicated that the Following Identified Educational Needs: None The Patient has indicated that they have no educational or learning abilities that may effect their care.: Yes - Patient Instruction Patient Education: Diagnosis, Treatment Plan, Goals Person Taught: Patient Teaching Method: Discussion Response to teaching: Verbalize understanding, Has Prior Knowledge
--- NOTE | 2022-07-17 10:34 | HP.SP.DC ---
ST Discharge Summary - Discharged: Discharge: Shira Shen is discharged from speech therapy at [facility] as of 07/17/22 as no further visits were scheduled by patient. She was evaluated on 04/24/22 with therapy recommended for recall strategies. She was treated for one session and cancelled the next session. Her goals focused on higher level cognition as well as recall skills. [employer] provided that patient with a list of 5 strategies and examples of how to use each. She uses a calendar but stated that she has more appointments then she ever has before, and this is difficult for her. Patient was able to complete a problem-solving task with moderate cues of things that the patient will need to have prepared ahead or have help with while her is gone. She is moderately worried about meals. She can cook but has only done so two times since home and stated they were edible but not the same as before. Encouraged that patient make a list of foods to be ready to reheat or make. A re-evaluation may be warranted if the patient is continuing to have deficits. Thank you for allowing me to participate in the care of this patient.
== END 2022-05-14 19:00 | disposition home or self-care (01) ==
LOC: SP 10:00
PROVIDERS: PCP Family Medicine; Referring Provider Internal Medicine; Visit Provider Family Medicine
DX: I69.351 Hemiplegia and hemiparesis following cerebral infarction affecting right dominant side (principal); I69.321 Dysphasia following cerebral infarction
CPT/HCPCS: 92507; 97110; 97162

== ENCOUNTER → 2022-05-18 | Outpatient (CLI) | payer MEDICARE, SELFPAY | END | disposition home or self-care (01) | LOC: SL 20:08 | PROVIDERS: PCP Internal Medicine; Referring Provider Internal Medicine Critical Care Medicine; Visit Provider Internal Medicine Critical Care Medicine | DX: G47.33 Obstructive sleep apnea (adult) (pediatric) (principal) | CPT/HCPCS: 95811 ==

== ENCOUNTER → 2022-05-29 | Outpatient (CLI) | payer MEDICARE, SELFPAY | END | disposition home or self-care (01) | LOC: SL 10:42 | PROVIDERS: PCP Internal Medicine; Visit Provider Nurse Practitioner Acute Care | DX: Z46.89 Encounter for fitting and adjustment of other specified devices (principal) ==

== ENCOUNTER → 2022-06-18 | Outpatient (CLI) | payer MEDICARE, SELFPAY | END | disposition home or self-care (01) | LOC: SL 10:13 | PROVIDERS: PCP Internal Medicine; Visit Provider Nurse Practitioner Acute Care | DX: Z46.89 Encounter for fitting and adjustment of other specified devices (principal) ==

== ENCOUNTER → 2022-07-10 | Outpatient (CLI) | payer MEDICARE, SELFPAY | END | disposition home or self-care (01) | LOC: SL 14:15 | PROVIDERS: PCP Internal Medicine; Visit Provider Nurse Practitioner Acute Care | DX: G47.33 Obstructive sleep apnea (adult) (pediatric) (principal) | CPT/HCPCS: 98960; G0463 ==

== ENCOUNTER → 2022-08-03 | Outpatient (CLI) | payer MEDICARE, SELFPAY ==
[2022-08-03 12:32] LABS: Absolute Neutrophil Count 3.1 X10^3/uL (2.0-7.7); Basophil# 0.05 X10^3/uL; Basophil% 0.7 % (0-1); Eosinophils% 2.9 % (0-5); Hematocrit 40.6 % (37-47); Hemoglobin 12.4 g/dL (12.0-15.0); Lymphocyte % 42.2 % (19-41); Mean Corp Hgb Conc 30.5 g/dL (32-36); Mean Corpuscular Hgb 27.7 pg (27.0-32.0); Mean Corpuscular Volume 90.8 fL (81-99); Mean Platelet Vol. 11.5 fl (6.2-12.0); Monocyte# 0.58 X10^3/uL; Monocyte% 8.4 % (0-10); NRBC Flagged by Analyzer 0 % (0-5); Neutrophil # 3.12 X10^3/uL (2.7-7.7); Neutrophil % 45.5 % (47-70); Platelet Count 229 K/mm3 (150-450); RBC Distribution Width CV 13.6 % (11.6-14.6); RBC Distribution Width SD 45.2 fl (35.1-43.9); Red Blood Count 4.47 M/mm3 (4.2-5.4); White Blood Count 6.9 K/mm3 (4.4-11.0)
[2022-08-03 12:47] LABS: ALB/GLOB Ratio 0.9 RATIO (0.9-2.4); AST(SGOT) 38 U/L (15-37); Alanine Aminotransfer ALT/SGPT 48 U/L (13-56); Albumin, Serum 3.7 g/dL (3.2-5.0); Alkaline Phosphatase 90 U/L (45-117); Anion Gap 3 (5-15); BUN 19 mg/dL (7-18); BUN/Creat Ratio 23.6 RATIO (10-20); Calcium,Total 9.6 mg/dL (8.5-10.1); Chloride 106 mmol/L (98-107); Cholesterol 174 mg/dL (200); Creatinine, Serum 0.81 mg/dL (0.55-1.02); EST Glomerular Filtration Rate 75 mL/min (>60); Est Glom Filt Rate - Afr Amer 90 mL/min (>60); Globulin 4.1 g/dL (2.2-4.2); Glucose 136 mg/dL (74-106); High Density Lipoprotein 39 mg/dL; Protein, Total 7.8 g/dL (6.4-8.2); Sodium Level 139 mmol/L (136-145); Triglycerides 210 mg/dL; Very Low Density Lipoprotein 42 mg/dL (5-40)
== END | disposition home or self-care (01) ==
LOC: BIMLAB 08:44
PROVIDERS: PCP Internal Medicine; Referring Provider Internal Medicine; Visit Provider Internal Medicine
DX: K21.9 Gastro-esophageal reflux disease without esophagitis (principal); I63.9 Cerebral infarction, unspecified; E78.2 Mixed hyperlipidemia
CPT/HCPCS: 36415; 80053; 80061; 85025

== ENCOUNTER 2022-10-04 10:29 | Day surgery (SDC) | payer MEDICARE, SELFPAY ==
[2022-10-04] VITALS (7 sets, daily range): BP systolic 130–143; BP diastolic 73–84; PULSE 63–81; RESP 16–18; TEMP 36.8–36.9; O2SAT 96–99; BMI 31.8
[2022-10-04] MEDS: Vancomycin IV 1,000 MG/200 ML BAG 200 MG IV (11:09)
[2022-10-04] MEDS: Lactated Ringers 1,000 ML 15 ML IV (11:10)
--- NOTE | 2022-10-04 12:25 | RAD_ITS ---
STUDY: X-RAY - PELVIS REASON FOR EXAM: Female, 72 years old. AXONICS STAGE 1 TECHNIQUE: One view of the pelvis was obtained. COMPARISON: None. FINDINGS: The tip of the electrode is seen in the posterior aspect of the left hemipelvis. RAD/Pelvis 1 or 2 Views IMPRESSION: The tip of the electrode is seen in the left posterior aspect of the left hemipelvis. Electronically Signed: Dejan Garcia MD at 13:15 EST ,
[2022-10-04] MEDS: Lidocaine 1% /Epi 1:100 (20ml) 20 ML Vial (12:35)
--- NOTE | 2022-10-04 13:18 | DCINST_ITS ---
Discharge Instructions Diet Discharge Diet: No restrictions Activity Discharge Activity: May Not Shower Dressing / Incision Call your doctor if your incision/area has: Continuous Slow Oozing, Sudden Increased Bleeding, Increased Pain/ Swelling, Increased Redness and Foul Smelling Discharge Call your doctor if you observe: Fever of 101 or Higher, Inability to urinate and Inability to have a bowel movement Change Dressing in: do not change dressing Remove Dressing in: do not remove dressing Cleanse incision/area with: Do not get Incision Wet and Keep Dressing Clean & Dry Follow Up Care Please Follow Up With: Monse Pro MD When: Next week in the office. Test Results: Test results from this visit will be discussed in further detail at your follow- up appointment, if applicable. Discharge Plan Admission Attending Provider: Monse Pro Primary Care Provider: Nimisha Olvera Discharge Orders/Prescriptions Prescriptions: New oxycodone-acetaminophen [Percocet] 5-325 mg tablet 1 tab PO Q8H PRN (Reason: pain) 3 Days Qty: 10 0RF cephalexin [cephalexin] 500 mg capsule 500 mg PO Q12 3 Days Qty: 6 0RF Continued multivitamin [Daily Multiple] 1 EACH tablet 1 ea PO DAILY Label Comments: Supplement ascorbic acid (vitamin C) [C-1000] 1,000 MG tablet 500 mg PO DAILY Label Comments: Vitamin C supplement sertraline 50 MG tablet 25 mg PO BID Label Comments: Depression/anxiety cholecalciferol (vitamin D3) [Vitamin D3] 1,000 UNIT tablet 1,000 unit PO DAILY aspirin 81 mg Tablet 81 mg PO DAILY acetaminophen [Tylenol] 325 mg Tablet 1,000 mg PO Q6H PRN (Reason: Pain (Scale Score 1-10)) fluticasone propionate 50 mcg/actuation [place],Suspension 2 spray INTRANASAL DAILY Rx Instructions: administer into each nostril coenzyme Q10 [Co Q-10] 200 mg Capsule 200 mg PO DAILY propranolol 60 mg Capsule,Extended Release 24 Hr 120 mg PO DAILY Qty: 30 0RF cranberry 500 mg Capsule 500 mg PO DAILY Rx Instructions: administer with meals gabapentin 400 mg capsule 400 mg PO 4X/DAY Metamucil 3.4 gram/5.4 gram powder 1 tbsp PO PRN PRN (Reason: Constipation) Rx Instructions: mix into at least 8 oz of water or juice before administering omeprazole magnesium [Prilosec OTC] 20 mg Tablet,Delayed Release (Dr/Ec) 40 mg PO DAILY Probiotic Acidophilus 1.5 mg (250 million cell) Capsule 1,000 mmu cells PO DAILY amlodipine [Norvasc] 2.5 mg tablet 2.5 mg PO DAILY Qty: 30 5RF atorvastatin 40 mg tablet 40 mg PO DAILY Qty: 30 5RF montelukast [Singulair] 10 mg tablet 10 mg PO QHS Qty: 30 5RF Referrals / Follow Up: Nimisha Olvera MD [Primary Care Provider] - Disposition Disposition (needs filled in before D/C Order can be placed): Home, Self Care
--- NOTE | 2022-10-04 13:22 | PCM.OPRPT ---
Report of Operation Date of Procedure: 10/04/22 Pre-Operative Diagnosis: Urinary retention Post-Operative Diagnosis: Same Surgery/Procedure Performed:: Axonics stage I Surgeon: Monse Pro Type of Anesthesia: MAC Description of Procedure: The patient is a 72-year-old female with urinary retention who has undergone urodynamics and conservative management without success. She now presents for stage I Axonics trial. Informed consent has been obtained. The patient was taken to the operating room and placed into a prone position on the operating room table. She was appropriately padded and secured to the table. Anesthesia monitored the head, neck, airway, IV access and vital signs throughout the case. Once anesthesia was appropriately administered, the patient was prepped and draped in usual sterile fashion. Using a C arm, the bony structures in the S3 foramen were outlined on her skin which was then infiltrated with lidocaine. The Axonics needle was then passed through the S3 foramen and the left side achieved better response. The guidewire was then passed through the needle which was then removed. The skin was incised surrounding the guidewire and the sheath was then placed. The lead was placed through the sheath and was observed in good position on fluoroscopy in the AP and lateral views. With further evaluation good alfredo response was seen on leads I, II and III. With blood being present in the sheath, and with good positioning, the decision was made to leave the lead in situ. Both sides were tested and the S2 foramen was also tested on the right side. This was the best location identified. At this time the sheath was removed leaving the tined lead in situ. The pocket site was identified and infiltrated with lidocaine. An incision was made and the pocket was enlarged using Bovie cautery. Hemostasis was obtained. The lead was tunneled into the pocket site where it was cleaned and inserted into the lead extension. The lead extension was then tunneled into a contralateral position where it was inserted into the battery. At this time the pocket was closed using 3-0 Vicryl followed by 4-0 Monocryl and Dermabond. The incision sites for lead insertion placement were closed using Steri-Strips. At this time OpSite's were placed over the lead extension and battery followed by cloth tape. The patient was then awakened and taken to the recovery room in good condition. There were no complications during this procedure. Grafts/Implants Used: Axonics stage I lead and lead extension Complications None Admit VTE Documentation VTE Present on Admission: No VTE Mechan Device Prophylaxis: None Reason prophylaxis not ordered:: Treatment Not Indicated
== END 2022-10-04 14:40 | disposition home or self-care (01) ==
LOC: SDC 10:35 → AC 10:35
PROVIDERS: PCP Internal Medicine; Referring Provider Urology; Visit Provider Urology
PROC: (CPT 64561; principal; 2022-10-04 12:10)
DX: R33.9 Retention of urine, unspecified (principal); F31.9 Bipolar disorder, unspecified; G47.33 Obstructive sleep apnea (adult) (pediatric); K21.9 Gastro-esophageal reflux disease without esophagitis; I10 Essential (primary) hypertension; Z90.710 Acquired absence of both cervix and uterus; Z87.448 Personal history of other diseases of urinary system
CPT/HCPCS: 64561; 00300; 72170; 76000; J7120; J2405

== ENCOUNTER 2022-10-25 05:45 | Day surgery (SDC) | payer MEDICARE, SELFPAY ==
[2022-10-25] VITALS (7 sets, daily range): BP systolic 133–149; BP diastolic 66–90; PULSE 69–74; RESP 16–18; TEMP 36.7–37.3; O2SAT 94–100; BMI 32.1
[2022-10-25] MEDS: Lactated Ringers 1,000 ML 15 ML IV (06:32)
[2022-10-25] MEDS: Lidocaine 2% /Epi 1:100 (20ml) 20 ML VIAL (07:47)
--- NOTE | 2022-10-25 08:15 | EX.PCM.DISCH ---
Discharge Instructions Diet Discharge Diet: No restrictions Activity Discharge Activity: May Drive and May Shower (tomorrow) May resume sexual activity in: 2 weeks Dressing / Incision Call your doctor if your incision/area has: Continuous Slow Oozing, Sudden Increased Bleeding, Increased Pain/ Swelling, Increased Redness, Foul Smelling Discharge and Swelling at the incision site Call your doctor if you observe: Fever of 101 or Higher, Inability to urinate and Inability to have a bowel movement Remove Dressing in: leave until fall off Follow Up Care Please Follow Up With: Monse Pro MD When: Call the office for an appointment to be seen in 2 to 3 weeks Test Results: Test results from this visit will be discussed in further detail at your follow-up appointment, if applicable. Discharge Plan Admission Attending Provider: Monse Pro Primary Care Provider: Nimisha Olvera Discharge Orders/Prescriptions Prescriptions: New oxycodone-acetaminophen [Percocet] 5-325 mg tablet 1 tab PO Q8H PRN (Reason: pain) 3 Days Qty: 9 0RF cephalexin [cephalexin] 500 mg capsule 500 mg PO Q12 3 Days Qty: 6 0RF Continued multivitamin [Daily Multiple] 1 EACH tablet 1 ea PO DAILY Label Comments: Supplement ascorbic acid (vitamin C) [C-1000] 1,000 MG tablet 500 mg PO DAILY Label Comments: Vitamin C supplement sertraline 50 MG tablet 25 mg PO BID Label Comments: Depression/anxiety cholecalciferol (vitamin D3) [Vitamin D3] 1,000 UNIT tablet 1,000 unit PO DAILY aspirin 81 mg Tablet 81 mg PO DAILY acetaminophen [Tylenol] 325 mg Tablet 1,000 mg PO Q6H PRN (Reason: Pain (Scale Score 1-10)) fluticasone propionate 50 mcg/actuation [place],Suspension 2 spray INTRANASAL DAILY Rx Instructions: administer into each nostril coenzyme Q10 [Co Q-10] 200 mg Capsule 200 mg PO DAILY propranolol 60 mg Capsule,Extended Release 24 Hr 120 mg PO DAILY Qty: 30 0RF cranberry 500 mg Capsule 500 mg PO DAILY Rx Instructions: administer with meals Metamucil 3.4 gram/5.4 gram powder 1 tbsp PO PRN PRN (Reason: Constipation) Rx Instructions: mix into at least 8 oz of water or juice before administering omeprazole magnesium [Prilosec OTC] 20 mg Tablet,Delayed Release (Dr/Ec) 40 mg PO DAILY Probiotic Acidophilus 1.5 mg (250 million cell) Capsule 1,000 mmu cells PO DAILY oxycodone-acetaminophen [Percocet] 5-325 mg tablet 1 tab PO Q8H PRN (Reason: pain) 3 Days Qty: 10 0RF cephalexin 500 mg capsule 500 mg PO Q12 3 Days Qty: 6 0RF amlodipine [Norvasc] 2.5 mg tablet 2.5 mg PO DAILY Qty: 30 5RF atorvastatin 40 mg tablet 40 mg PO DAILY Qty: 30 5RF montelukast [Singulair] 10 mg tablet 10 mg PO QHS Qty: 30 5RF gabapentin 400 mg capsule 400 mg PO 4X/DAY Qty: 120 0RF Label Comments: 1 at breakfast, 1 at lunch, 2 at dinner. Referrals / Follow Up: Nimisha Olvera MD [Primary Care Provider] - Disposition Disposition (needs filled in before D/C Order can be placed): Home, Self Care
--- NOTE | 2022-10-25 08:18 | PCM.OPRPT ---
Report of Operation Date of Procedure: 10/25/22 Pre-Operative Diagnosis: Urinary retention Post-Operative Diagnosis: Same Surgery/Procedure Performed:: Axonics stage II Surgeon: Monse Pro Type of Anesthesia: MAC Estimated Blood Loss (mL): 5 cc Description of Procedure: The patient is a 72-year-old female that passed her Axonics stage I taking her postvoid residual down from 2 to 300 cc to 50 cc. She now presents for insertion of the permanent battery. Informed consent was obtained. The patient was taken to the operating room and placed in a prone position on the operating room table. Anesthesia monitored the head, neck, airway, IV access and vital signs throughout the case. Once anesthesia was appropriately administered, the patient was prepped and draped in usual sterile fashion. The area surrounding the pocket site was infiltrated with 2% lidocaine. The incision was opened with a knife and hemostats. The lead and lead extension were brought into the operative field. Using the torque wrench, the lead was removed from the lead extension which was then cut and removed from the field. The pocket itself was enlarged using the knife and Bovie cautery and blunt dissection. Hemostasis was achieved using cautery. The pocket site was irrigated with sterile water. The lead was dried and inserted into the battery and secured using the torque wrench. The battery was then placed into the pocket site and closed in 2 layers using 3-0 interrupted Vicryl followed by 4-0 Monocryl closure. Dermabond was then applied to the incision. The patient was then awakened and taken to the recovery room in good condition. There were no complications during this procedure. Grafts/Implants Used: Axonics battery Complications None Admit VTE Documentation VTE Present on Admission: No VTE Mechan Device Prophylaxis: None VTE Pharm Prophylaxis ordered?: No Reason prophylaxis not ordered:: Treatment Not Indicated
== END 2022-10-25 09:23 | disposition home or self-care (01) ==
LOC: SDC 05:50 → AC 05:51
PROVIDERS: PCP Internal Medicine; Referring Provider Urology; Visit Provider Urology
PROC: (CPT 64590; principal; 2022-10-25 07:20)
DX: R33.9 Retention of urine, unspecified (principal); F31.9 Bipolar disorder, unspecified; K21.9 Gastro-esophageal reflux disease without esophagitis; I10 Essential (primary) hypertension; Z86.73 Personal history of transient ischemic attack (TIA), and cerebral infarction without residual deficits; N39.41 Urge incontinence; R35.1 Nocturia
CPT/HCPCS: 64590; 00300; J7050; J7120; J2405

== ENCOUNTER → 2023-05-21 | Outpatient (CLI) | payer MEDICARE, SELFPAY ==
[2023-05-21 10:17] LABS: Bacteria 0 SEEN /hpf (None Seen); Mucous, Urine 0 SEEN /hpf (<or=2+); Red Blood Cells-Urine 0 SEEN /hpf (0-5); White Blood Cells 0 SEEN /hpf (0-5)
[2023-05-21 12:06] LABS: Color, Urine Yellow (Yellow); Glucose, Dipstick Normal (Normal); Ketone-Dipstick Negative (Negative); Leukocyte Esterase-Dipstick 25 /ul (Negative); Nitrite-Dipstick Negative (Negative); Occult Blood-Urine Negative /ul (Negative); Protein-Dipstick Negative (Negative); Urine Bilirubin Dipstick Negative (Negative); Urine Clarity Clear (Clear); Urine Urobilinogen Normal (Normal)
[2023-05-21 12:12] LABS: Squamous Epithelial Cells - UA 0-5 SEEN /hpf (5-10)
== END | disposition home or self-care (01) ==
LOC: BIMLAB 10:13 → LABSPEC 10:15
PROVIDERS: PCP Internal Medicine; Visit Provider Internal Medicine
DX: R73.03 Prediabetes (principal); R35.0 Frequency of micturition
CPT/HCPCS: 81001; 87077; 87086; 87088; 87186

== ENCOUNTER → 2023-05-22 | Outpatient (CLI) | payer MEDICARE, SELFPAY ==
[2023-05-22 12:19] LABS: Absolute Lymphocyte Count 2.52 X10^3/uL (0.83-4.51); Absolute Neutrophil Count 3.4 X10^3/uL (2.0-7.7); Basophil# 0.04 X10^3/uL; Basophil% 0.6 % (0-1); Eosinophil# 0.17 X10^3/uL; Eosinophils% 2.5 % (0-5); Hematocrit 39.6 % (37-47); Hemoglobin 12.1 g/dL (12.0-15.0); Lymphocyte # 2.52 X10^3/ul (0.83-4.51); Lymphocyte % 37.2 % (19-41); Mean Corp Hgb Conc 30.6 g/dL (32-36); Mean Corpuscular Hgb 28.2 pg (27.0-32.0); Mean Corpuscular Volume 92.3 fL (81-99); Mean Platelet Vol. 11.7 fl (6.2-12.0); Monocyte% 8.9 % (0-10); NRBC Flagged by Analyzer 0 % (0-5); Neutrophil # 3.43 X10^3/uL (2.7-7.7); Neutrophil % 50.7 % (47-70); Platelet Count 190 K/mm3 (150-450); RBC Distribution Width CV 13.7 % (11.6-14.6); RBC Distribution Width SD 46.5 fl (35.1-43.9); Red Blood Count 4.29 M/mm3 (4.2-5.4); White Blood Count 6.8 K/mm3 (4.4-11.0)
[2023-05-22 12:44] LABS: ALB/GLOB Ratio 0.9 RATIO (0.9-2.4); AST(SGOT) 35 U/L (15-37); Alanine Aminotransfer ALT/SGPT 47 U/L (13-56); Albumin, Serum 3.6 g/dL (3.2-5.0); Alkaline Phosphatase 91 U/L (45-117); Anion Gap 4 (5-15); BUN 16 mg/dL (7-18); Calcium,Total 9.3 mg/dL (8.5-10.1); Chloride 105 mmol/L (98-107); Cholesterol 168 mg/dL (200); EST Glomerular Filtration Rate 75 mL/min (>60); Est Glom Filt Rate - Afr Amer 91 mL/min (>60); Globulin 4.2 g/dL (2.2-4.2); Glucose 144 mg/dL (74-106); High Density Lipoprotein 41 mg/dL; Potassium 4.4 mmol/L (3.5-5.1); Protein, Total 7.8 g/dL (6.4-8.2); Sodium Level 138 mmol/L (136-145); Triglycerides 205 mg/dL; Very Low Density Lipoprotein 41 mg/dL (5-40)
[2023-05-22 13:21] LABS: Hemoglobin A1c 6.5 % (3.8-5.6)
== END | disposition home or self-care (01) ==
LOC: BIMLAB 08:22
PROVIDERS: PCP Internal Medicine; Referring Provider Internal Medicine; Visit Provider Internal Medicine
DX: I10 Essential (primary) hypertension (principal); K21.9 Gastro-esophageal reflux disease without esophagitis; R73.03 Prediabetes; Z86.73 Personal history of transient ischemic attack (TIA), and cerebral infarction without residual deficits
CPT/HCPCS: 36415; 80053; 80061; 83036; 85025

== ENCOUNTER 2023-07-30 10:30 | Outpatient (RCR) | payer MEDICARE, SELFPAY ==
--- NOTE | 2023-05-23 12:19 | HP.PTEVAL ---
Patient's Visit Information Visit Information Visit Information: FLOR MEDINA is a 73 year old F referred to Physical Therapy by Dr. Nimisah Olvera MD with a diagnosis of CVA. Date of Evaluation: 05/23/23 Physical Therapist: Barry Rivera, DPT, OCS, CSCS Visit Plan Frequency: 2x /Week Duration: 4-6 Weeks Plan: 2x/week for 4 weeks for... 1. rollout and stretch R quad and psoas, progress to home stretching of quad and HS 2. R LE strength and coordination exercises 3. General activity ex to be taught to patient for I exit strategy at home Subjective Subjective: Stroke in March of 2022. Has been recovering and trying to exercise since. R side arm and leg and hand was effected. Cannot drive. Is here now because walking is getting harder. sits 10-15 min and hard to get out of chair. hard to get shoe sock on. hard to lift R LE. Worse now then 6 months ago. Can't seem to get up as easy. no neurologist. Doctor wants her to get around better. Sleep is not great, has sleep apnea and does not use machine. Sleeps a couple hours at a time. pain is not an issue. R arm feels numb at t imes. is R handed and can do what she needs to do. using knife and fork and buttoning OK but has to keep hand moving. Close to falls but none. No cane or walker but has walker with wheels. Not employed. Doesn't do much all day and this may be the problem. She gains weight. Eats wrong. No regualr exercises. Lives with , wants to walk for fitness. Can do grocery shopping. Objective Objective: Walks with R trendelenberg adn stiffnes in R LE causing a limp on R. I gait, Good balance, steps reciprocal with one rail but prefers to use L, railing is required for safety. Transitions show weakness in core in attempting to sit but I with chair trasnfers. R quad and psoas max stiff and hard to even lie flat, L much better. R HS more stiff vs L at -40 90/90 test. Gastroc tight R at 0 DF. R hip weak at 3/5 vs 4- L, knee ext 3+ R and 4- L, knee flexion 3+ R and 4- L, ankle 4 B, slow to move R ankle as compared to L with heel to cintron worse coordination on R. reflexes 2/3 patella and achilles Sensation WNL to gross light touch in LE B. Balance/Special Test Scores Functional Gait Assessment Score: 24 % Disability: 20.0000 Goals Goal 1:: I appropriate HEP for LE coordination, strength adn mobility via HEP Goal Time Frame: 4-6 Weeks Goal 2:: Patient score 26/30 on FGA to reduce fall risk Goal Time Frame: 4-6 Weeks Goal 3:: Pt feel 50% better in mobility and tightness in R leg Goal Time Frame: 4-6 Weeks Goal 4:: Patient able to ie flat on back with R leg off table without pain Goal Time Frame: 4-6 Weeks Rehabilitation Potential Physical Therapy Diagnosis: CVA R sided weakness poorly managed. Rehabilitation Potential: Good Anticipated Interventions Patient/Client Instruction: Educate patient on: Condition and Plan of Care For the Purpose of:: To decrease pain, To increase ROM, To improve muscle performance and motor function, To increase tolerance to activity/condition/position, To improve gait and locomotor functions and To improve balance Therapeutic Exercise to Include: Strength training, Balance training, Coordination, Flexibilty training, Passive ROM and Active ROM For the Purpose of:: To decrease pain, To increase ROM, To improve nutrient delivery to tissue, To improve muscle performance and motor function, To increase tolerance to activity/condition/position, To improve ability of physical actions for home/community/work/leisure and To improve gait and locomotor functions Manual Therapy Techniques to Include: Soft tissue mobilization For the Purpose of:: To decrease pain and To increase ROM Text: Thank you for the opportunity to evaluate your patient. For Medicare and Medicare HMO plans, please review the plan of care and approve it. It will need to be FAXED BACK to us at [phone] for Medicare purposes. For Medicare only, by signing this I certify the plan of care. Please let me know if there are questions or concerns regarding this plan of care. Physician Signature: Date:
--- NOTE | 2023-07-30 11:12 | HP.PTDCSUM ---
Discharge Summary D/C summary: It has been my pleasure to treat FLOR MEDINA referred by Dr. Nimisha Olvera MD, with the diagnosis of CVA for a total of 9 visit(s). Discharge Date: 07/30/23 Please see the following information for a summary of their discharge status. Subjective Subjective: I'm alive. Not much improvement. Pain in R groin is holding her back. Sometimes almost giving out. Picked up some heavy books over a month ago. R groin pain started and has kept her from doing alot of exercise on R leg. Using walker much of time but not at home but hard to walk. Pain R leg: Pain Intensity (Out of 10): 7 Overall Improvement % Improvement: 0 Objective Objective/Function: Walks antalgic on R avoiding much R hip motion, Better with walker, able without AD but slow and painful. Trasfers chair and bed I. PROM R hip is WFL but painful end range of er, flexion and extension qith quad stretch. Overall not improving and feeling worse becaause of hip pain more than anything. Goals Goal 1:: I appropriate HEP for LE coordination, strength adn mobility via HEP Goal Progress: limited by pain Goal 2:: Patient score 26/30 on FGA to reduce fall risk Goal Progress: Not Progressing Goal 3:: Pt feel 50% better in mobility and tightness in R leg Goal Progress: Not Progressing Goal 4:: Patient able to ie flat on back with R leg off table without pain Goal Progress: Progressing Plan Plan: d/c, pt to contact doctor regarding next step for hip. Should consider being sent back to PT for strengthening once hip is better or consider water therapy if limited options for R hip pain. D/C Information Discharge Comments: Pt to schedule with doctor regarding hip pain Right which is holding her back on her exercise and progression d/c sentence: If there are questions or concerns regarding this patient's physical therapy, please feel free to call me at [phone]. Thank you for the referral of this patient. Sincerely, Barry Rivera, DPT, OCS, CSCS Balance/Gait/Functional tests Balance/Special Test Scores Functional Gait Assessment Score: 24 % Disability: 20.0000 Lower Extremity Functional Score: 9 Improvement % Improvement: 0
== END 2023-07-30 19:00 | disposition home or self-care (01) ==
LOC: PT 10:30
PROVIDERS: PCP Internal Medicine; Referring Provider Internal Medicine; Visit Provider Internal Medicine
DX: Z86.73 Personal history of transient ischemic attack (TIA), and cerebral infarction without residual deficits (principal)
CPT/HCPCS: 97110; 97140; 97162; 97164

== ENCOUNTER → 2023-11-20 | Outpatient (CLI) | payer MEDICARE, MEDICAID, SELFPAY ==
--- NOTE | 2023-11-20 13:50 | RAD_ITS ---
STUDY: X-RAY - PELVIS AND RIGHT HIP REASON FOR EXAM: Female, 73 years old. Hip pain. TECHNIQUE: 3 views of the pelvis and right hip. COMPARISON: None. FINDINGS: There is a neurostimulator battery pack overlying the right pelvis with single lead and electrode overlying the left hemipelvis. There is a non-specific bowel gas pattern. Normal visualized soft tissue structures. Normal bilateral iliac wings, sacroiliac joints and visualized sacrum. Normal bilateral superior and inferior pubic rami. Normal pubic symphysis. Normal bilateral ischial tuberosities. There are mild osteoarthritic changes of the femoral head with marginal osteophyte formation. There is mild osteoarthritic spur formation of the acetabular rim. Intact right hip joint. There is no demonstrated acute fracture. RAD/HIP, UNI W/ Pelvis 2-3 Views IMPRESSION: Mild degenerative arthrosis of the right hip joint. No demonstrated acute fracture. Electronically Signed: Andrew Squires MD at 8:26 EDT ,
== END | disposition home or self-care (01) ==
LOC: RAD 13:38
PROVIDERS: PCP Internal Medicine; Referring Provider Internal Medicine; Visit Provider Internal Medicine
DX: M25.559 Pain in unspecified hip (principal); G89.29 Other chronic pain
CPT/HCPCS: 73502

== ENCOUNTER 2023-12-26 12:17 | Emergency (ER) | payer MEDICARE, MEDICAID, SELFPAY ==
[2023-12-26 12:18] VITALS: BP 180/96; PULSE 95; RESP 16; TEMP 36.1; O2SAT 97; BMI 31.9
--- NOTE | 2023-12-26 12:56 | EX.ED.VIS.PS ---
HPI HPI - Psych History of Present Illness Chief Complaint: Mental Health Detail of Chief Complaint: History of bipolar with increasing depression. Not suicidal. Informant: patient and friend Onset/Context/Timing Onset: Weeks Context: Gradual Onset Conflict: Family and Financial Timing: Continuous Current Severity: Mild Maximum Severity: Mild Associated Symptoms Associated Symptoms - Psych: Positive for Depressed; Negative for Suicidal Thoughts, Paranoia, Visual Hallucinations or Auditory Hallucinations Narrative Narrative: 73-year-old female history of bipolar disorder for the last 30 years. She is on Zoloft 50 mg once a day. She was seeing a local psychiatrist Dr. Munguia he retired and she has not seen anybody since that time. She is appointment to be seen for psychiatric evaluation next week. She been more depressed to her and her are getting . He has rights to the house. She is concerned she may lose her housing. She denies being suicidal. She has never had an attempt. She has been hospitalized in the past for mental health but has not been for many years. She also states recently she is fallen pray to scammers who have been getting her by gift cards and then they get the money or goods off of those. It is put her in a financial tough situation. Prior similar symptoms: Yes Recent Illness/Hospitalization: No PFSH PFSH Medical History Arthritis Back pain Bipolar 1 disorder Bipolar disorder Bladder disease Cerebrovascular disease CPAP (continuous positive airway pressure) dependence Depression Gastric reflux GERD (gastroesophageal reflux disease) High cholesterol History of echocardiogram History of stress test HLD (hyperlipidemia) HTN (hypertension) Hx of bladder problems Hx of chronic arthritis Hx of emotional problems Hx of migraines Hx of seasonal allergies Hypertension Non-smoker Obesity (BMI 30.0-34.9) Overactive bladder Radicular pain in left arm Stroke/cerebrovascular accident Urinary retention Wears glasses Home Medications ascorbic acid (vitamin C) 1,000 mg tablet (C-1000) 500 mg PO DAILY supplement 08/22/15 [History Last Taken 10/24/22] multivitamin (Daily Multiple tablet) 1 ea PO DAILY supplement 08/22/15 [History Last Taken 10/24/22] cholecalciferol (vitamin D3) 25 mcg (1,000 unit) tablet (Vitamin D3) 1,000 unit PO DAILY supplement 03/23/16 [History Last Taken 10/24/22] acetaminophen 325 mg tablet (Tylenol) 1,000 mg PO Q6H PRN Pain (Scale Score 1-10) 04/03/22 [History Last Taken 10/24/22] aspirin 81 mg tablet 81 mg PO DAILY anti-platelet 04/03/22 [History Last Taken 10/25/22] Lactobacillus acidophilus 250 million cell capsule (Probiotic Acidophilus) 1,000 mmu cells PO DAILY 10/01/22 [History Last Taken 10/24/22] cranberry 500 mg capsule 500 mg PO DAILY 10/01/22 [History Last Taken 10/24/22] polyethylene glycol 3350 17 gram/dose oral powder (Miralax) 4 g PO DAILY 06/17/23 [History Last Taken Unknown] propranolol 120 mg capsule,24 hr,extended release 120 mg PO DAILY #90 caps 11/14/23 [Rx Last Taken Unknown] atorvastatin 40 mg tablet 40 mg PO DAILY HDL #90 tabs 11/20/23 [Rx Last Taken Unknown] handicap placard #1 ea 11/20/23 [Rx Last Taken Unknown] sertraline 50 mg tablet 50 mg PO BID treat depression #180 tabs 11/20/23 [Rx Last Taken Unknown] montelukast 10 mg tablet (Singulair) 10 mg PO QHS asthma #90 tabs 12/09/23 [Rx Last Taken Unknown] amlodipine 5 mg tablet See Rx Instructions .Route .COMPLEX #30 tabs 12/23/23 [Rx Last Taken Unknown] Allergy/AdvReac Type Severity Reaction Status Date / Time codeine Allergy Other Verified 12/26/23 12:21 Penicillins Allergy Itching Verified 12/26/23 12:21 Zsagbno-BJU-UlV Reductase Allergy Unknown Verified 12/26/23 12:21 Inhibitor [Eoyooxo-Yvu-Zps Reductase Inhibitor] Sulfa (Sulfonamide Allergy Itching Verified 12/26/23 12:21 Antibiotics) Family History Mother Colon cancer CAD (coronary artery disease) Angina at rest Breast cancer Cervical cancer Depression Hypertension Grandmother Diabetes Maternal grandmother CAD (coronary artery disease) Arthritis Heart disease Grandfather CAD (coronary artery disease) Bleeding disorder Father CAD (coronary artery disease) Hypertension Surgical History H/O: hysterectomy History of bladder suspension procedure Social History household members: spouse housing: house current occupational status: retired 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 Review of Systems ROS Unobtainable: Denies due to encephalopathy Constitutional Constitutional ED: Denies chills or fever(s) Eyes Eyes: Denies blurry vision ENT ENT ED: Denies ear pain Cardiovascular Cardiovascular: Denies chest pain Respiratory/Chest Respiratory/Chest: Denies cough or dyspnea Gastrointestinal Gastrointestinal: Denies abdominal pain Genitourinary Genitourinary ED: Denies dysuria or hematuria Musculoskeletal Musculoskeletal: Denies arthralgias Integumentary Denies abscess Neurologic Neurologic: Denies headache(s) Psychiatric Psychiatric: Denies anxiety Endocrine Endocrinology: Denies polydipsia or polyphagia Hematologic/Lymphatic Hematologic/Lymphatic: Denies easy bleeding Allergic/Immunologic Allergic/Immunologic ED: Denies mouth swelling, tongue swelling or urticaria EXAM Physical Exam Narrative Exam Narrative: Well-appearing 73-year-old female. Vital signs stable afebrile. H EENT exam unremarkable atraumatic. Pupils round react light. Neck nontender. Lungs clear to auscultation bilaterally. Heart regular rate and rhythm rate about 90 no murmur. Chest wall and ribs nontender. Abdomen soft nontender. Moving all 4 extremities. Nontender no edema. No injuries or wounds. Back nontender. Neurologically she is awake and alert answering questions following commands. Makes eye contact. He is calm and relaxed at this time. Her friend is present at bedside. Const Vital Signs: 12/26/23 12:18 Temperature 96.9 F L Temperature Source Temporal Pulse Rate 95 Respiratory Rate 16 Blood Pressure 180/96 H Blood Pressure Mean 124 Pulse Ox 97 Oxygen Delivery Method Room Air Positive well nourished and well developed; Negative for obese, cachectic, contractures or unkempt General Appearance ED: well developed and NAD; Negative for unkempt, cachectic, contractures or pallor Nutritional Appearance: Negative for cachectic or obese HEENT Reports moist mucous membranes normocephalic and atraumatic; Negative for trauma or tenderness Eyes PERRL and EOMs intact bilaterally General Eye ED: Negative for pale conjunctiva or scleral icterus Neck no lymphadenopathy, supple and no JVD General: Negative for tenderness Resp normal respiratory effort and clear to auscultation bilaterally Effort and Inspection: Negative for retractions Auscultation: Negative for rales, rhonchi or wheezes Cardio S1 normal heart sound, S2 normal heart sound and no murmurs Rate: regular rate Rhythm: regular rhythm GI non-tender, non-distended and no masses Inspection: Negative for abdominal distention Auscultation: normoactive bowel sounds Palpation: soft; Negative for tender or guarding Back/Spine no CVA tenderness General Back: Negative for CVA tenderness Cervical Spine: Negative for cervical spine tenderness Thoracic Spine / Upper Back: Negative for thoracic spinal tenderness Lumbar Spine / Lower Back: Negative for lumbar spinal tenderness Coccyx: Negative for other Extremity normal to inspection General Extremety ED: Negative for edema, tenderness or other findings General Extremity: Negative for edema or other findings Neuro oriented x3 and CN's II-XII intact bilaterally Sensorium / Orientation: alert, oriented to person, oriented to place and oriented to time; Negative for orientation impaired, confused, lethargic or stuporous Motor Exam: strength 5/5 throughout Psych mental status grossly normal, thought process normal, cooperative, affect normal, speech normal, activity/motor behavior normal, denies hallucinations, denies homicidal ideation and denies suicidal ideation Appearance: grossly normal; Negative for unkempt Attitude: calm, engaged, No paranoid, No withdrawn and No bizarre Activity / Motor Behavior: appropriate eye contact Speech: normal speech Mood & Affect: depressed Thought Process: normal thought process Thought Content: normal thought content Attention / Concentration: attention grossly intact Memory / Cognition: memory grossly intact Insight: insight good Judgement: poor Skin General Skin Exam: Negative for jaundice or pallor Lesions: no lesions Rashes: no rashes Trauma: Negative for abrasion Wounds: Negative for amputation MDM MDM MDM Narrative Medical decision making narrative: 73-year-old female on Zoloft has a history of bipolar disorder. She is more depressed. Crisis evaluation will be done. Currently I do not think she needs any labs unless crisis request them. I think she will be able to be discharged home with outpatient follow-up. I do not think she will need to be admitted or sent to a psychiatric facility. Patient was seen and evaluated by crisis personnel from the counseling center. They are setting her up with outpatient resources but she has the appointment already set up for next week. Patient and her friend are comfortable to plan to be discharged home. She knows if she gets worse or feels like harming yourself to return. Again states she is not suicidal. Discharge Plan Triage Chief Complaint: Mental Health ED Provider: Dimitri Altamirano Dx/Rx/DC Orders Clinical Impression: Depression, Bipolar 1 disorder Instructions: ED Depression Prescriptions: No Action polyethylene glycol 3350 [Miralax] 17 gram/dose powder 4 g PO DAILY atorvastatin 40 mg tablet 40 mg PO DAILY Qty: 90 1RF sertraline 50 mg tablet 50 mg PO BID Qty: 180 0RF (DME) handicap placard See Rx Instructions .ROUTE .MEDSUPPLY Qty: 1 0RF Rx Instructions: Length of time: 5 years Diagnosis - Impaired physical mobility (z74.09) multivitamin [Daily Multiple] 1 EACH tablet 1 ea PO DAILY Patient Comments: Supplement ascorbic acid (vitamin C) [C-1000] 1,000 MG tablet 500 mg PO DAILY Patient Comments: Vitamin C supplement cholecalciferol (vitamin D3) [Vitamin D3] 1,000 UNIT tablet 1,000 unit PO DAILY aspirin 81 mg Tablet 81 mg PO DAILY acetaminophen [Tylenol] 325 mg Tablet 1,000 mg PO Q6H PRN (Reason: Pain (Scale Score 1-10)) cranberry 500 mg Capsule 500 mg PO DAILY Rx Instructions: administer with meals Probiotic Acidophilus 1.5 mg (250 million cell) Capsule 1,000 mmu cells PO DAILY propranolol 120 mg capsule,extended release 24 hr 120 mg PO DAILY Qty: 90 0RF montelukast [Singulair] 10 mg tablet 10 mg PO QHS Qty: 90 1RF amlodipine 5 mg tablet See Rx Instructions .ROUTE .COMPLEX Qty: 30 2RF Dose Instruction: TAKE 1 TABLET BY MOUTH EVERY DAY Rx Instructions: TAKE 1 TABLET BY MOUTH EVERY DAY Primary Care Provider: Nimisha Olvera Referrals: Counseling,Center [Group of Physicians] - As soon as possible Nimisha Olvera MD [Primary Care Provider] - Activity Restrictions/Additional Instructions: Follow-up with your mental health appointment next week. Follow-up with the resources that the sheetmetal worker discussed with you today. Disposition Disposition: Home, Self Care
--- NOTE | 2023-12-26 12:58 | ED.RN ---
CALLED CRISIS AND THEY ARE GOING TO SEND SOMEONE UP TO SPEAK WITH PATIENT
[2023-12-26 14:50] VITALS: BP 127/69; PULSE 68; RESP 16; TEMP 36.6; O2SAT 97
== END 2023-12-26 14:50 | disposition home or self-care (01) ==
LOC: ED 13:10
PROVIDERS: Emergency Provider Emergency Medicine; PCP Internal Medicine; Visit Provider Emergency Medicine
DX: F31.9 Bipolar disorder, unspecified (principal); Z79.899 Other long term (current) drug therapy; E78.00 Pure hypercholesterolemia, unspecified; I10 Essential (primary) hypertension; Z86.73 Personal history of transient ischemic attack (TIA), and cerebral infarction without residual deficits; Z79.82 Long term (current) use of aspirin; Z90.710 Acquired absence of both cervix and uterus
CPT/HCPCS: 99282

== ENCOUNTER 2024-03-30 12:25 | Emergency (ER) | payer MEDICARE, MEDICAID, SELFPAY ==
[2024-03-30 12:26] VITALS: BP 157/84; PULSE 76; RESP 18; TEMP 36.3; O2SAT 97; BMI 32.7
--- NOTE | 2024-03-30 13:00 | EKG12_ITS ---
Test Reason : GENERAL Blood Pressure : / mmHG Vent. Rate : 069 BPM Atrial Rate : 069 BPM P-R Int : 158 ms QRS Dur : 128 ms QT Int : 432 ms P-R-T Axes : 051 -26 010 degrees QTc Int : 462 ms Normal sinus rhythm Right bundle branch block Abnormal ECG Confirmed by JR CARRANZA, LAURENT ([id number]), newspaper editor managing ЕЛЕНА TAPIA ([id number]) on 04/03/2024 9:52:57 AM Referred By: Confirmed By:CHARLES NORRIS MD
[2024-03-30 13:10] LABS: Absolute Lymphocyte Count 2.15 X10^3/uL (0.83-4.51); Absolute Neutrophil Count 2.8 X10^3/uL (2.0-7.7); Basophil# 0.05 X10^3/uL; Basophil% 0.9 % (0-1); Eosinophil# 0.13 X10^3/uL; Eosinophils% 2.3 % (0-5); Hematocrit 36.7 % (37-47); Lymphocyte # 2.15 X10^3/ul (0.83-4.51); Lymphocyte % 37.6 % (19-41); Mean Corp Hgb Conc 32.7 g/dL (32-36); Mean Corpuscular Hgb 28.4 pg (27.0-32.0); Mean Platelet Vol. 11.9 fl (6.2-12.0); Monocyte# 0.55 X10^3/uL; Monocyte% 9.6 % (0-10); NRBC Flagged by Analyzer 0 % (0-5); Neutrophil # 2.82 X10^3/uL (2.7-7.7); Neutrophil % 49.3 % (47-70); Platelet Count 159 K/mm3 (150-450); RBC Distribution Width CV 13.2 % (11.6-14.6); RBC Distribution Width SD 41.2 fl (35.1-43.9); Red Blood Count 4.22 M/mm3 (4.2-5.4); White Blood Count 5.7 K/mm3 (4.4-11.0)
[2024-03-30] MEDS: 0.9% Normal Saline (1000mL) 1,000 ML 999 ML IV (13:19)
[2024-03-30 13:29] LABS: ALB/GLOB Ratio 0.9 RATIO (0.9-2.4); AST(SGOT) 60 U/L (15-37); Alanine Aminotransfer ALT/SGPT 57 U/L (13-56); Albumin, Serum 3.7 g/dL (3.2-5.0); Alkaline Phosphatase 86 U/L (45-117); Anion Gap 6 (5-15); BUN 18 mg/dL (7-18); BUN/Creat Ratio 22.3 RATIO (10-20); Calcium,Total 9.4 mg/dL (8.5-10.1); Chloride 107 mmol/L (98-107); Creatinine, Serum 0.81 mg/dL (0.55-1.02); EST Glomerular Filtration Rate 74 mL/min (>60); Est Glom Filt Rate - Afr Amer 90 mL/min (>60); Estimated Creatinine Clearance 67.76 ml/min; Globulin 3.9 g/dL (2.2-4.2); Glucose 138 mg/dL (74-106); Lipase 45 U/L (13-75); Potassium 4.1 mmol/L (3.5-5.1); Protein, Total 7.6 g/dL (6.4-8.2); Sodium Level 138 mmol/L (136-145); Troponin-I HS 4 pg/mL (3.0-54.0)
--- NOTE | 2024-03-30 13:38 | CT_ITS ---
STUDY: CT ABDOMEN AND PELVIS WITH CONTRAST REASON FOR EXAM: Female, 73 years old. Epigastric pain. RADIATION DOSAGE (If Supplied By Facility): CTDIvol = ( 14.66 ) mGy, DLP = ( 1112.60 ) mGycm TECHNIQUE: Transaxial images were obtained from the dome of the diaphragm to the symphysis pubis without oral contrast. IV 100mL Isovue-370 was administered. Sagittal and coronal images were reconstructed. Individualized dose optimization techniques were used for this CT. COMPARISON: Comparison is made with prior study dated August 23, 2015. FINDINGS: The visualized lung bases are unremarkable. Coronary artery calcification. There is decreased attenuation of the liver consistent with steatosis. The patient is status post cholecystectomy. Normal spleen. Normal pancreas. Normal bilateral adrenal glands. Mild degree of right hydronephrosis. No obstructive uropathy is seen. Normal left kidney. Normal visualized stomach. Normal small intestine. Normal colon. There is non-visualization of the appendix. There is scattered atherosclerotic calcification of the abdominal aorta, without a demonstrated aneurysm. Normal inferior vena cava. Normal retroperitoneum. Normal urinary bladder. There is absence of the uterus consistent with a prior hysterectomy. Normal abdominal wall. This space narrowing at the L4-L5 and L5-S1 levels. The spinal cord stimulating battery pack is seen overlying the right. CT/Abdomen/Pelvis W IV Cont ONLY IMPRESSION: Status post cholecystectomy. Fatty infiltration of the liver. Minimal right hydronephrosis although no obstructive uropathy is seen. Electronically Signed: Dejan Garcia MD at 13:59 EDT ,
[2024-03-30 13:42] LABS: Bacteria 0 SEEN /hpf (None Seen); Mucous, Urine 0 SEEN /hpf (<or=2+)
[2024-03-30 13:43] LABS: Color, Urine Yellow (Yellow); Glucose, Dipstick Normal (Normal); Ketone-Dipstick Negative (Negative); Leukocyte Esterase-Dipstick 100 /ul (Negative); Nitrite-Dipstick Negative (Negative); Occult Blood-Urine Negative /ul (Negative); Protein-Dipstick Negative (Negative); Specific Gravity, Urine 1.015 (1.002-1.030); Urine Bilirubin Dipstick Negative (Negative); Urine Clarity Sl. Cloudy (Clear); Urine Urobilinogen Normal (Normal)
[2024-03-30 13:48] LABS: Red Blood Cells-Urine 0-5 SEEN /hpf (0-5); Squamous Epithelial Cells - UA 5-10 SEEN /hpf (5-10); White Blood Cells 0-5 SEEN /hpf (0-5)
--- NOTE | 2024-03-30 14:11 | EX.ED.DYSGE1 ---
HPI History of Present Illness Chief Complaint: Abd Pain Narrative Narrative: Patient is a 73-year-old female with a past medical history of bipolar disorder, hypertension, hyperlipidemia, CVA, GERD who presented to the emergency department with chief complaint of abdominal pain. She states that the abdominal pain has been going on for approximately a week now and states that she cannot take it any longer prompting her to come here for further evaluation management. Patient states that her pain is near the upper abdomen in the midline and rates this pain a 5 out of 10. Patient denies any recent alcohol use, denies any drug use. Patient denies any history of blood clots denies any recent travel history. [facility] Medical History Urinary retention Hx of bladder problems Wears glasses Bipolar disorder Arthritis Bladder disease High cholesterol Back pain Gastric reflux Non-smoker CPAP (continuous positive airway pressure) dependence History of echocardiogram History of stress test Stroke/cerebrovascular accident Hx of migraines Hx of emotional problems Hx of chronic arthritis Hx of seasonal allergies Radicular pain in left arm GERD (gastroesophageal reflux disease) Cerebrovascular disease Obesity (BMI 30.0-34.9) Depression Bipolar 1 disorder Hypertension Overactive bladder HLD (hyperlipidemia) HTN (hypertension) Home Medications ?Medication ?Instructions ?Recorded ?Last Taken ?Type ascorbic acid (vitamin C) 1,000 mg 500 mg PO DAILY supplement 08/22/15 10/24/22 History tablet (C-1000) multivitamin (Daily Multiple 1 ea PO DAILY supplement 08/22/15 10/24/22 History tablet) cholecalciferol (vitamin D3) 25 1,000 unit PO DAILY supplement 03/23/16 10/24/22 History mcg (1,000 unit) tablet (Vitamin D3) acetaminophen 325 mg tablet 1,000 mg PO Q6H PRN Pain (Scale 04/03/22 10/24/22 History (Tylenol) Score 1-10) aspirin 81 mg tablet 81 mg PO DAILY anti-platelet 04/03/22 10/25/22 History Lactobacillus acidophilus 250 1,000 mmu cells PO DAILY 10/01/22 10/24/22 History million cell capsule (Probiotic Acidophilus) cranberry 500 mg capsule 500 mg PO DAILY 10/01/22 10/24/22 History polyethylene glycol 3350 17 4 g PO DAILY 06/17/23 Unknown History gram/dose oral powder (Miralax) atorvastatin 40 mg tablet 40 mg PO DAILY HDL #90 tabs 11/20/23 Unknown Rx handicap placard #1 ea 11/20/23 Unknown Rx montelukast 10 mg tablet 10 mg PO QHS asthma #90 tabs 12/09/23 Unknown Rx (Singulair) sertraline 100 mg tablet 100 mg PO DAILY #30 tabs 01/01/24 Unknown Rx fluticasone propionate 50 2 spray intranasal DAILY #16 grams 02/10/24 Unknown Rx mcg/actuation nasal spray,suspension olopatadine 0.2 % eye drops 1 drp ophthalmic (eye) DAILY PRN 02/10/24 Unknown Rx (Pataday Once Daily Relief) eye watery/itching #2.5 mL prednisone 5 mg tablets in a dose See Rx Instructions PO PER PKG DIR 02/10/24 Unknown Rx pack #21 tabs propranolol 120 mg capsule,24 120 mg PO DAILY #90 caps 02/12/24 Unknown Rx hr,extended release amlodipine 5 mg tablet 5 mg PO DAILY #90 TABLETS 03/25/24 Unknown Rx omeprazole 40 mg capsule,delayed 40 mg PO DAILY #30 caps 03/30/24 Unknown Rx release Allergy/AdvReac Type Severity Reaction Status Date / Time codeine Allergy Other Verified 03/30/24 12:26 Penicillins Allergy Itching Verified 03/30/24 12:26 Vlmqyrr-ZUF-XyR Reductase Allergy Unknown Verified 03/30/24 12:26 Inhibitor (Hhrztkd-Mrn-Eyy Reductase Inhibitor) Sulfa (Sulfonamide Allergy Itching Verified 03/30/24 12:26 Antibiotics) Family History Mother Colon cancer CAD (coronary artery disease) Angina at rest Breast cancer Cervical cancer Depression Hypertension Grandmother Diabetes Maternal grandmother CAD (coronary artery disease) Arthritis Heart disease Grandfather CAD (coronary artery disease) Bleeding disorder Father CAD (coronary artery disease) Hypertension Surgical History History of bladder suspension procedure H/O: hysterectomy Social History household members: spouse housing: house current occupational status: retired 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 sexually active: No Smoking Status: Never smoker Electronic Cigarette Use: not used alcohol intake: never substance use type: does not use what type of physical activity do you participate in: none seatbelt use: always do you feel safe at home: Yes ROS ROS ED ROS Narrative Constitutional: Denies any fevers, chills, headaches, lightheadedness, dizziness Eyes: Denies change in vision double vision blurry vision Cardiovascular: Denies chest pain or palpitations Respiratory: Denies coughing wheezing shortness of breath Abdomen: Complains of abdominal pain as noted above denies vomiting diarrhea denies dark tarry stools denies blood in her stool : Denies any pain formation, hematuria polyuria Neurological: Denies numbness, weakness, tingling Musculoskeletal: Denies back pain Skin: Denies rashes or lesions EXAM Physical Exam Narrative Exam Narrative: General: Patient was lying in bed rest comfortably did not appear to be in acute distress Head: Atraumatic, normal cephalic Eyes: Pupils equal round reactive to light bilaterally, extraocular muscles intact bilateral, no conjunctival injection noted Neck: Soft, supple, trachea midline Cardiovascular: Regular rate and rhythm no murmurs gallops rubs noted Respiratory: Clear to auscultation bilaterally no rales rhonchi or wheeze noted Abdomen: Soft; patient had tenderness palpation epigastric region no rebound or guarding on exam Extremities: +5/5 strength noted in the bilateral upper and lower extremities, radial pulses +2/4 in the bilateral upper extremities Neurological: Patient following commands knew that she was at [facility] the year is 2023 Skin: Warm, dry, intact Const Vital Signs: 03/30/24 12:26 03/30/24 14:25 Temperature 97.3 F L Temperature Source Temporal Pulse Rate 76 81 Respiratory Rate 18 16 Blood Pressure 157/84 H 154/67 H Blood Pressure Mean 108 96 Pulse Ox 97 98 Oxygen Delivery Method Room Air Room Air MDM MDM MDM Narrative Medical decision making narrative: Patient is a 73-year-old female who presented to the emergency department chief complaint of abdominal pain. Patient will have a workup performed here on the differential diagnose includes but not limited to pancreatitis, small bowel obstruction, appendicitis, UTI. Once workup is obtained reviewed she will be reevaluated. Patient CBC reviewed show no evidence of leukocytosis white blood count normal 5.7, hemoglobin stable at 12, platelet count was normal at 159. Patient's sodium normal 138, potassium normal 4.1, creatinine was 0.81. Patient's AST and ALT were 16 and 57 respectively with a normal total bilirubin of 0.40. Patient's troponin normal at 4, lipase normal at 45. Patient's urinalysis did not reveal any evidence of infection. Patient CT abdomen pelvis with IV contrast was reviewed and it showed status postcholecystectomy. Fatty infiltration of the liver. Minimal right hydronephrosis although nonobstructive uropathy is seen. Did review the results with the patient and she would like to go home at this point in time. I did encourage her to follow-up with her primary care physician in outpatient setting. She was encouraged to begin omeprazole daily as well. She was encouraged to return with worsening symptoms or other concerns. All question concerns answered she was discharged home in stable condition. Lab Data Labs: Laboratory Results - last 24 hr 03/30/24 03/30/24 12:50 13:35 WBC 5.7 RBC 4.22 Hgb 12.0 Hct 36.7 L MCV 87.0 MCH 28.4 MCHC 32.7 RDW Std Deviation 41.2 RDW Coeff of Fercho 13.2 Plt Count 159 MPV 11.9 Immature Gran % (Auto) 0.300 Neut % (Auto) 49.3 Lymph % (Auto) 37.6 Mcculloch % (Auto) 9.6 Eos % (Auto) 2.3 Baso % (Auto) 0.9 Absolute Neuts (auto) 2.8 Absolute Lymphs (auto) 2.15 Nucleated RBC % 0 Sodium 138 Potassium 4.1 Chloride 107 Carbon Dioxide 25.0 Anion Gap 6 BUN 18 Creatinine 0.81 Estim Creat Clear Calc 67.76 Est GFR (MDRD) Af Amer 90 Est GFR (MDRD) Non-Af 74 BUN/Creatinine Ratio 22.3 H Glucose 138 H Calcium 9.4 Total Bilirubin 0.40 AST 60 H ALT 57 H Alkaline Phosphatase 86 Troponin I High Sens 4 Total Protein 7.6 Albumin 3.7 Globulin 3.9 Albumin/Globulin Ratio 0.9 Lipase 45 Urine Color Yellow Urine Clarity Sl. Cloudy Urine pH 6.0 Ur Specific [place] 1.015 Urine Protein Negative Urine Glucose (UA) Normal Urine Ketones Negative Urine Occult Blood Negative Urine Nitrite Negative Urine Bilirubin Negative Urine Urobilinogen Normal Ur Leukocyte Esterase 100 H Urine RBC 0-5 SEEN Urine WBC 0-5 SEEN Ur Squamous Epith Cells 5-10 SEEN Urine Bacteria 0 SEEN Urine Mucus 0 SEEN Radiography Diagnostic Testing: Clinical Impression(s) from Imaging Studies Abdomen/Pelvis CT 03/30/24 13:38 IMPRESSION: Status post cholecystectomy. Fatty infiltration of the liver. Minimal right hydronephrosis although no obstructive uropathy is seen. Electronically Signed: Dejan Garcia MD at 13:59 EDT , Discharge Plan Triage Chief Complaint: Abd Pain ED Provider: John Liriano Dx/Rx/DC Orders Clinical Impression: Abdominal pain Prescriptions: New omeprazole 40 mg capsule,delayed release(DR/EC) 40 mg PO DAILY Qty: 30 0RF No Action polyethylene glycol 3350 [Miralax] 17 gram/dose powder 4 g PO DAILY atorvastatin 40 mg tablet 40 mg PO DAILY Qty: 90 1RF (DME) handicap placard See Rx Instructions .ROUTE .MEDSUPPLY Qty: 1 0RF Rx Instructions: Length of time: 5 years Diagnosis - Impaired physical mobility (z74.09) sertraline 100 mg tablet 100 mg PO DAILY Qty: 30 1RF prednisone 5 mg tablets,dose pack See Rx Instructions PO PER PKG DIR Qty: 21 0RF Rx Instructions: PO PER PKG DIR fluticasone propionate 50 mcg/actuation spray,suspension 2 spray intranasal DAILY Qty: 16 0RF Rx Instructions: administer into each nostril olopatadine [Pataday Once Daily Relief] 0.2 % drops 1 drp ophthalmic (eye) DAILY PRN (Reason: eye watery/itching) Qty: 2.5 0RF multivitamin [Daily Multiple] 1 EACH tablet 1 ea PO DAILY Patient Comments: Supplement ascorbic acid (vitamin C) [C-1000] 1,000 MG tablet 500 mg PO DAILY Patient Comments: Vitamin C supplement cholecalciferol (vitamin D3) [Vitamin D3] 1,000 UNIT tablet 1,000 unit PO DAILY aspirin 81 mg Tablet 81 mg PO DAILY acetaminophen [Tylenol] 325 mg Tablet 1,000 mg PO Q6H PRN (Reason: Pain (Scale Score 1-10)) cranberry 500 mg Capsule 500 mg PO DAILY Rx Instructions: administer with meals Probiotic Acidophilus 1.5 mg (250 million cell) Capsule 1,000 mmu cells PO DAILY montelukast [Singulair] 10 mg tablet 10 mg PO QHS Qty: 90 1RF propranolol 120 mg capsule,extended release 24 hr 120 mg PO DAILY Qty: 90 0RF amlodipine 5 mg tablet 5 mg PO DAILY Qty: 90 0RF Primary Care Provider: Nimisha Olvera Referrals: Nimisha Olvera MD [Primary Care Provider] - Activity Restrictions/Additional Instructions: Follow-up with a physician in outpatient setting. Take omeprazole as prescribed. Return with worsening symptoms or any other concerns. Print Language: Faroese Disposition Disposition: Home, Self Care
[2024-03-30 14:25] VITALS: BP 154/67; PULSE 81; RESP 16; O2SAT 98
[2024-03-30 15:09] VITALS: BP 174/66; PULSE 65; RESP 18; TEMP 36.6; O2SAT 96
== END 2024-03-30 15:10 | disposition home or self-care (01) ==
PROVIDERS: Emergency Provider Emergency Medicine; PCP Internal Medicine; Visit Provider Emergency Medicine
DX: R10.9 Unspecified abdominal pain (principal); F31.9 Bipolar disorder, unspecified; K76.0 Fatty (change of) liver, not elsewhere classified; I10 Essential (primary) hypertension; E78.5 Hyperlipidemia, unspecified; K21.9 Gastro-esophageal reflux disease without esophagitis; Z86.73 Personal history of transient ischemic attack (TIA), and cerebral infarction without residual deficits; Z90.49 Acquired absence of other specified parts of digestive tract; Z90.710 Acquired absence of both cervix and uterus; Z82.49 Family history of ischemic heart disease and other diseases of the circulatory system; Z79.82 Long term (current) use of aspirin
CPT/HCPCS: 74177; 80053; 81001; 83690; 84484; 85025; 93005; 96360; 99283; J7030; Q9967; A4216

== ENCOUNTER → 2024-04-09 | Outpatient (CLI) | payer MEDICARE, MEDICAID, SELFPAY ==
--- NOTE | 2024-04-09 15:57 | VDLE_ITS ---
Reason For Study: Right leg swelling RIGHT LEFT GSV is normal. CFV is compressible, spontaneous, phasic, CFV is compressible, spontaneous, phasic, competent, and demonstrates normal competent and demonstrates normal augmentation. augmentation. FV is compressible, spontaneous, phasic, competent and demonstrates normal augmentation. POP V is compressible, spontaneous, phasic, competent and demonstrates normal augmentation. T/P Trunk is compressible. PTV is compressible. RT PerV is compressible. Procedure This is a venous duplex using B-mode, color flow and spectral Doppler. Exam performed in department. A preliminary report was called and/or faxed to Claudia ROBIN. VL/Venous Duplex US, Unilateral Interpretation Summary Deep veins of the right lower extremity are patent and compressible segmentally . There is no evidence of right lower extremity deep vein thrombosis. The right great sapheno us vein appears patent and compressible segmentally. Ordering Physician: Geovanny Taylor Referring Physician: Nimisha Olvera Performed By: Lilliam Ríos RVT
== END | disposition home or self-care (01) ==
LOC: CVS 15:54
PROVIDERS: PCP Internal Medicine; Referring Provider Physician Assistant; Visit Provider Physician Assistant
DX: M79.89 Other specified soft tissue disorders (principal)
CPT/HCPCS: 93971

== ENCOUNTER → 2024-04-15 | Outpatient (CLI) | payer MEDICARE, MEDICAID, SELFPAY ==
[2024-04-15 12:13] LABS: Amylase 41 U/L (25-115); Lipase 59 U/L (13-75)
[2024-04-15 12:21] LABS: Absolute Lymphocyte Count 1.72 X10^3/uL (0.83-4.51); Absolute Neutrophil Count 2.3 X10^3/uL (2.0-7.7); Basophil# 0.04 X10^3/uL; Basophil% 0.9 % (0-1); Eosinophil# 0.17 X10^3/uL; Eosinophils% 3.7 % (0-5); Hematocrit 38.4 % (37-47); Hemoglobin 11.9 g/dL (12.0-15.0); Lymphocyte # 1.72 X10^3/ul (0.83-4.51); Lymphocyte % 37.1 % (19-41); Mean Corpuscular Hgb 28.1 pg (27.0-32.0); Mean Corpuscular Volume 90.6 fL (81-99); Mean Platelet Vol. 12.5 fl (6.2-12.0); Monocyte# 0.38 X10^3/uL; Monocyte% 8.2 % (0-10); NRBC Flagged by Analyzer 0 % (0-5); Neutrophil # 2.31 X10^3/uL (2.7-7.7); Neutrophil % 49.9 % (47-70); Platelet Count 103 K/mm3 (150-450); RBC Distribution Width CV 13.1 % (11.6-14.6); RBC Distribution Width SD 42.6 fl (35.1-43.9); Red Blood Count 4.24 M/mm3 (4.2-5.4); White Blood Count 4.6 K/mm3 (4.4-11.0)
== END | disposition home or self-care (01) ==
LOC: MTLAB 09:31
PROVIDERS: PCP Internal Medicine; Referring Provider Physician Assistant; Visit Provider Physician Assistant
DX: R10.13 Epigastric pain (principal)
CPT/HCPCS: 36415; 82150; 83690; 85025

== ENCOUNTER → 2024-04-16 | Outpatient (CLI) | payer MEDICARE, MEDICAID, SELFPAY ==
[2024-04-19 15:07] LABS: H. PYLORI STOOL AG Negative (Negative)
== END | disposition home or self-care (01) ==
PROVIDERS: PCP Internal Medicine; Referring Provider Physician Assistant; Visit Provider Physician Assistant
DX: K21.9 Gastro-esophageal reflux disease without esophagitis (principal); R13.10 Dysphagia, unspecified
CPT/HCPCS: 82274; 87338

== ENCOUNTER → 2024-04-28 | Outpatient (CLI) | payer MEDICARE, MEDICAID, SELFPAY ==
[2024-04-28 15:54] LABS: Absolute Lymphocyte Count 2.51 X10^3/uL (0.83-4.51); Absolute Neutrophil Count 3.4 X10^3/uL (2.0-7.7); Basophil# 0.05 X10^3/uL; Basophil% 0.7 % (0-1); Eosinophil# 0.16 X10^3/uL; Eosinophils% 2.3 % (0-5); Hematocrit 38.2 % (37-47); Lymphocyte # 2.51 X10^3/ul (0.83-4.51); Lymphocyte % 36.4 % (19-41); Mean Corp Hgb Conc 31.4 g/dL (32-36); Mean Corpuscular Hgb 28.2 pg (27.0-32.0); Mean Corpuscular Volume 89.7 fL (81-99); Mean Platelet Vol. 11.7 fl (6.2-12.0); Monocyte# 0.75 X10^3/uL; Monocyte% 10.9 % (0-10); NRBC Flagged by Analyzer 0 % (0-5); Neutrophil # 3.39 X10^3/uL (2.7-7.7); Neutrophil % 49.3 % (47-70); Platelet Count 167 K/mm3 (150-450); RBC Distribution Width CV 13.1 % (11.6-14.6); RBC Distribution Width SD 42.9 fl (35.1-43.9); Red Blood Count 4.26 M/mm3 (4.2-5.4); White Blood Count 6.9 K/mm3 (4.4-11.0)
[2024-04-28 16:18] LABS: AST(SGOT) 61 U/L (15-37); Alanine Aminotransfer ALT/SGPT 55 U/L (13-56); Albumin, Serum 3.9 g/dL (3.2-5.0); Alkaline Phosphatase 91 U/L (45-117); Anion Gap 8 (5-15); BUN 18 mg/dL (7-18); BUN/Creat Ratio 21.8 RATIO (10-20); Calcium,Total 10.4 mg/dL (8.5-10.1); Chloride 105 mmol/L (98-107); Creatinine, Serum 0.83 mg/dL (0.55-1.02); EST Glomerular Filtration Rate 72 mL/min (>60); Est Glom Filt Rate - Afr Amer 87 mL/min (>60); Globulin 3.9 g/dL (2.2-4.2); Glucose 110 mg/dL (74-106); Potassium 3.9 mmol/L (3.5-5.1); Protein, Total 7.8 g/dL (6.4-8.2); Sodium Level 141 mmol/L (136-145)
[2024-05-01 15:08] LABS: Anti-Parietal Cell AB, QN 12.9 Units (0.0-20.0); Gastrin, Serum 63 pg/mL (0-115)
== END | disposition home or self-care (01) ==
LOC: LAB 14:19
PROVIDERS: PCP Internal Medicine; Referring Provider Student in an Organized Health Care Education/Training Program; Visit Provider Student in an Organized Health Care Education/Training Program
DX: R10.13 Epigastric pain (principal)
CPT/HCPCS: 36415; 80053; 82941; 83516; 85025

== ENCOUNTER → 2024-05-05 | Outpatient (CLI) | payer MEDICARE, MEDICAID, SELFPAY ==
--- NOTE | 2024-05-05 10:20 | STRESSREP ---
Stress Test Report Pharmacologic myocardial perfusion stress test. 74-year-old lady with a history of epigastric pain Resting EKG demonstrates sinus bradycardia with a rate of 59 bpm. Resting blood pressure is 144/82 mmHg. 0.4 mg of regadenoson was infused per usual protocol followed by rapid intravenous saline flush injection. Continuous EKG monitoring was performed. The maximum heart rate was 72 bpm which was 48% of max impacted heart rate the maximum workload was 1 metabolic equivalent. At rest there were no ST or T wave changes noted to suggest ischemia and at peak infusion nonspecific ST changes were noted which did not meet the criteria for ischemia. No clinical angina is noted. The final blood pressure was 122/74 mmHg. Myocardial perfusion protocol. 11.7 mCi of technetium 99m sestamibi was injected at rest. 0.4 mg of regadenoson was infused per usual protocol. At peak infusion 34.6 mCi of technetium 99m sestamibi was injected stress images were obtained stress and rest images were reconstructed and compared in the short axis vertical long and horizontal long axis. Gated images were also obtained. Perfusion SPECT analysis: Review of the stress images demonstrate normal uptake of tracer noted in all areas of the myocardium. The resting images similar demonstrated normal uptake of tracer noted in all areas of the myocardium. No areas of reversibility are noted to suggest ischemia and no previous infarct is noted. Gated SPECT analysis: The gated ejection fraction is 77%. Conclusion: Normal pharmacologic myocardial perfusion stress test. Preserved ejection fraction.
== END | disposition home or self-care (01) ==
PROVIDERS: PCP Internal Medicine; Referring Provider Physician Assistant; Visit Provider Physician Assistant
DX: R07.9 Chest pain, unspecified (principal); R10.13 Epigastric pain; I10 Essential (primary) hypertension; Z86.73 Personal history of transient ischemic attack (TIA), and cerebral infarction without residual deficits
CPT/HCPCS: 78452; 93017; A9500; A4216; J2785

== ENCOUNTER 2024-05-21 06:44 | Day surgery (SDC) | payer MEDICARE, MEDICAID, SELFPAY ==
[2024-05-21] VITALS (8 sets, daily range): BP systolic 111–159; BP diastolic 65–71; PULSE 63–71; RESP 16–18; TEMP 36.3–36.6; O2SAT 92–99; BMI 32.9
[2024-05-21] MEDS: Lactated Ringers 1,000 ML 15 ML IV (07:07)
--- NOTE | 2024-05-21 07:27 | PCM.PRE.AN2 ---
ASA Classification* ASA Classification ASA Classification: 3 Assessment & Plan Anesthesia* Anesthesia Assessment Anesthesia Assessment: Discussed sedation and/or anesthesia options, risks, benefits, and alternatives with patient/parents/legal guardian/POA. Questions invited. The patient/parents/legal guardian/POA seems to understand and agrees to proceed with anesthesia plan. Reviewed the physical assessment, medical history, allergy history and patient home medications list prior to surgery/procedure/anesthetic and documented any changes. Performed airway and anesthesia risk assessments. Anesthesia Type Anesthesia Type: MAC (see written pre anesthesia record for full assessment) Anesthesia Focused Assessment* Temperature: 97.4 F Pulse Rate: 68 Blood Pressure: 159/71 Respiratory Rate: 17 Pulse Ox: 99 Airway Assessment Mouth opens: >3 cm Mallampati Score: III Focused Labs Anesthesia Preop lab: CBC WBC 6.9 K/mm3 (4.4-11.0) 04/28/24 14:22 RBC 4.26 M/mm3 (4.2-5.4) 04/28/24 14:22 Hgb 12.0 g/dL (12.0-15.0) 04/28/24 14:22 Hct 38.2 % (37-47) 04/28/24 14:22 Plt Count 167 K/mm3 (150-450) 04/28/24 14:22 CHEMISTRY Potassium 3.9 mmol/L (3.5-5.1) 04/28/24 14:22 Sodium 141 mmol/L (136-145) 04/28/24 14:22 Magnesium 2.1 mg/dL (1.6-2.6) 04/04/22 05:36 Phosphorus 3.7 mg/dL (2.5-4.9) 04/04/22 05:36 BUN 18 mg/dL (7-18) 04/28/24 14:22 Creatinine 0.83 mg/dL (0.55-1.02) 04/28/24 14:22 Glucose 110 mg/dL (74-106) H 04/28/24 14:22 POC Glucose 118 mg/dL (74-106) H 03/29/22 09:05 TSH 3.14 uIU/mL (0.358-3.74) 04/17/22 05:21 COAG PT 13.3 SECONDS (11.7-14.9) 03/29/22 09:00 Pre-Assessment Diagnosis/Proposed Procedure Planned Operative Procedure(s): EGD Anesthesia History Anesthesia History - revenue stamp cutter: Anesthesia History - revenue stamp cutter Hx Hospitalization No 05/19/24 14:24 Any Problems With Anesthesia No 05/19/24 14:24 Cholinesterase deficiency No 05/19/24 14:24 You/Your Family Experience No 05/19/24 14:24 fever (hyperthermia) with Relationship Recent Exposure to Contagious No 05/21/24 07:08 Disease Does patient have nerve No 05/19/24 14:24 stimulator Patient instructed to have device shut off --Does patient have Pacemaker No 05/21/24 07:08 or ICD? When Was Last Pacemaker Check QUESTION #4 FULL TEXT: You/Your Family Experience fever (hyperthermia) with Anesthesia Last Oral Intake Last Oral intake: Last Oral Intake NPO since 06:00 05/21/24 07:08 Meds taken in AM with sips of water? Meds patient instructed to take am of surgery PONV PONV - revenue stamp cutter: PONV - revenue stamp cutter Female Yes 05/19/24 14:24 HX of Motion Sickness No 05/19/24 14:24 HX of N/V After Surgery No 05/19/24 14:24 Non-Smoker Yes 05/19/24 14:24 Duration of Surgery greater No 05/19/24 14:24 than 60 minutes Number of Risk Factors 2 05/19/24 14:24 PONV Score Moderate Risk 05/19/24 14:24 Height & Weight Height & Weight: Anesthesia: Height & Weight Height 5 ft 4 in 05/21/24 07:08 Weight: 87 kg 05/21/24 07:08 Body Mass Index (BMI) 32.9 05/21/24 07:08 Respiratory Assessment Respiratory Assessment - revenue stamp cutter: Respiratory Tract Infection Hx - revenue stamp cutter Hx Respiratory Tract Infection No 05/19/24 14:24 STOP Sleep Apnea STOP Sleep Apnea - revenue stamp cutter: STOP Sleep Apnea - revenue stamp cutter Hx Hypertension Yes: CONTROLLED WITH MED 05/19/24 14:24 Hx Sleep Apnea Yes 05/19/24 14:24 CPAP Yes: NONCOMPLIANT 05/19/24 14:24 BIPAP No 05/19/24 14:24 Do you snore loudly (louder than talking or can be heard Do you often feel tired/ fatigued/ sleepy during daytime? Has anyone observed you stop breathing during sleep? STOP Results Positive 05/19/24 14:24 QUESTION #5 FULL TEXT : Do you snore loudly (louder than talking or can be heard through closed doors)? Tobacco Use History Tobacco Use History - revenue stamp cutter: Tobacco Use History - revenue stamp cutter Tobacco Use Non-smoker 04/22/22 10:12 Smoking Status Never smoker 05/19/24 14:24 Hx Tobacco Use No 05/19/24 14:24 Years Smoking Packs Smoked per Day Smoking Cessation Date was within the last 15 years Hx Smoking Cessation Date Hx Smoking Cessation Counseling Hematologic Medial History Hematologic Hx - revenue stamp cutter: Hematologic Medical Hx - physician non invasive cardiologist Hx of Blood Transfusion No 05/19/24 14:24 Hx of Transfusion in last 3 No 05/19/24 14:24 Months Date of Last Transfusion (if within last 3 months) Ever experience any problems No 05/19/24 14:24 with transfusion(s)? Specify any problems Hx of Preganancy in last 3 No 05/19/24 14:24 Months Nurse Filling Out Transfusion VCHRISTIN 05/19/24 14:24 & Questions: Date: 05/19/24 05/19/24 14:24 Time: 14:25 05/19/24 14:24 Patient unable to answer at this time (ie. confused, unrespo /Reproduction History /Reproductive History - revenue stamp cutter: /Reproductive Hx- revenue stamp cutter Hx Now Gestational Age (in weeks): EDC: Hx Hx Para Hx Section SAB No 05/19/24 14:24 Active Medications Active Medications: Current Medications Generic Name Dose Route Start Last Admin Trade Name Freq PRN Reason Stop Dose Admin Lactated Ringer's 1,000 mls @ 15 mls/hr 05/21/24 07:00 05/21/24 07:07 IV 15 mls/hr .Q48H SAMIR Administration PFSH Medical History History of edema Urinary retention Hx of bladder problems Wears glasses Bipolar disorder Arthritis Bladder disease High cholesterol Back pain Gastric reflux Non-smoker CPAP (continuous positive airway pressure) dependence History of echocardiogram History of stress test Stroke/cerebrovascular accident Hx of migraines Hx of emotional problems Hx of chronic arthritis Hx of seasonal allergies Radicular pain in left arm GERD (gastroesophageal reflux disease) Cerebrovascular disease Obesity (BMI 30.0-34.9) Depression Bipolar 1 disorder Hypertension Overactive bladder HLD (hyperlipidemia) HTN (hypertension) Home Medications ?Medication ?Instructions ?Recorded ?Last Taken ?Type multivitamin (Daily Multiple 1 ea PO DAILY supplement 08/22/15 05/20/24 History tablet) aspirin 81 mg tablet 81 mg PO DAILY anti-platelet 04/03/22 05/17/24 History handicap placard #1 ea 11/20/23 Unknown Rx montelukast 10 mg tablet 10 mg PO QHS asthma #90 tabs 12/09/23 05/20/24 Rx (Singulair) propranolol 120 mg capsule,24 120 mg PO DAILY #90 caps 02/12/24 05/20/24 Rx hr,extended release amlodipine 5 mg tablet 5 mg PO DAILY #90 TABLETS 03/25/24 05/20/24 Rx naproxen sodium 220 mg capsule 220 mg PO BID 04/09/24 05/20/24 History lactulose 10 gram/15 mL oral See Rx Instructions PO BID PRN 04/21/24 05/19/24 Rx solution constipation #473 mL esomeprazole magnesium 20 mg 20 mg PO DAILY 04/28/24 05/20/24 History capsule,delayed release (Nexium) sertraline 100 mg tablet 100 mg PO DAILY #90 tabs 04/28/24 05/20/24 Rx Lactobacillus acidophilus 10 100 mmu cells PO DAILY 05/19/24 Unknown History billion cell capsule (NewFlora) Rollator walker with brakes #1 ea 05/19/24 Unknown Rx acetaminophen 650 mg 650 mg PO Q12H PRN pain 05/19/24 Unknown History tablet,extended release (8 Hour Pain Reliever) atorvastatin 40 mg tablet 40 mg PO DAILY HDL #90 tabs 05/19/24 05/20/24 Rx blood pressure monitor (Blood #1 ea 05/19/24 Unknown Rx Pressure Kit) loratadine 10 mg tablet (Claritin) 10 mg PO DAILY 05/19/24 Unknown History Allergy/AdvReac Type Severity Reaction Status Date / Time codeine Allergy Other Verified 05/21/24 07:10 Penicillins Allergy Itching Verified 05/21/24 07:10 Jpvohtq-ABS-IqP Reductase Allergy Unknown Verified 05/21/24 07:10 Inhibitor (Zxagzvf-Qoh-Hnh Reductase Inhibitor) Sulfa (Sulfonamide Allergy Itching Verified 05/21/24 07:10 Antibiotics) Family History Mother Colon cancer CAD (coronary artery disease) Angina at rest Breast cancer Cervical cancer Depression Hypertension Grandmother Diabetes Maternal grandmother CAD (coronary artery disease) Arthritis Heart disease Grandfather CAD (coronary artery disease) Bleeding disorder Father CAD (coronary artery disease) Hypertension Surgical History Hx of surgical procedure History of bladder suspension procedure H/O: hysterectomy Social History household members: spouse housing: house current occupational status: retired 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
--- NOTE | 2024-05-21 08:00 | IMM_PTH ---
PATIENT: FLOR MEDINA LOC: EN U#:[id number] AGE/SX: 74/F ROOM: RE05/21/[address]: Dr. Blayne Faustin DO : 1950 BED: DIS: 05/21/2024 SPEC #: [id number] RECD: 05/21/24 12:13 STATUS: CESAR REKaran #: [id number] CHRISTIANO: 05/21/24 08:[address]: Blayne Faustin DEPT: IMMUNOHISTOCHEMISTRY RECD BY: Douglas Matthews ENTERED: 05/21/24 12:13 SP TYPE: IMMUNO OTHR DR: Dr. Nimisha Olvera MD Tissues: Gastric mucous membrane Procedures: H Pylori (initial) PHYSICIAN & INSTITUTION [place] [id number] SPECIMEN INFORMATION: Tissue Source: Gastric antrum biopsy Clinical Info: Epigastric abdominal pain Specimen Number: [id number] CPT code: 46802 METHODOLOGY: Deparaffinized sections of prefer/formalin-fixed tissue or PAP/DQ stained slides are incubated with monoclonal/polyclonal antibodies/oligonucleotide probes. Localization is made via biotin free immunoperoxidase method. Appropriate controls are performed and reacted as expected. Results on target cell population are indicated in the following table: RESULTS: ANTIBODY / CLONE RESULT H Pylori (polyclonal) negative These tests were developed and their performance characteristics determined by [facility]. They may not have been cleared or approved by the U.S. Food and Drug Administration. The FDA has determined that such clearance or approval is not necessary. The above immunohistochemical/dualISH markers are ordered and reviewed by the Pathologist. INTERPRETATION: Gastric antrum, biopsy: Negative for Helicobacter pylori organisms. 05/22/2024
--- NOTE | 2024-05-21 08:00 | EGD_PTH ---
PATIENT: FLOR MEDINA LOC: EN U#:[id number] AGE/SX: 74/F ROOM: RE05/21/[address]: Dr. Blayne Faustin DO : 1950 BED: DIS: 05/21/2024 SPEC #: [id number] RECD: 05/21/24 11:26 STATUS: CESAR CK #: [id number] CHRISTIANO: 05/21/24 08:[address]: Blayne Faustin DEPT: SURGICAL PATHOLOGY RECD BY: Charles Zaidi ENTERED: 05/21/24 14:05 SP TYPE: EGD BIOPSY OTHR DR: Dr. Nimisha Olvera MD Tissues: Gastric mucous membrane Procedures: Surgery Specimen Level IV HEADER OPERATION: EGD with biopsies PRE-OP DIAGNOSIS: Epigastric abdominal pain TISSUE SUBMITTED: Gastric antrum MICROSCOPIC DIAGNOSIS Gastric antrum, biopsy: Chronic gastritis. Focal mucosal ulceration with associated mild acute inflammation. See comment. AM 05/22/2024 COMMENT The results of immunohistochemistry for Helicobacter pylori will be reported separately ([id number]). MICROSCOPIC DESCRIPTION Slides are reviewed. GROSS DESCRIPTION Received in fixative is one container labeled with the patient's name and designated Gastric antrum. The specimen consists of multiple irregular fragments of light martin soft tissue that in aggregate measure 1.0 x 0.3 x 0.1 cm. The specimen is totally submitted in one cassette. 05/21/2024 TC:2 CPT:31837
--- NOTE | 2024-05-21 08:01 | HP.PCM_ITS ---
History and Physical Date of Admission: 05/21/24 F who presents to the office today for [facility] ED f/u. She has been having epigastric pain for the past month. She does have a hx of GERD. She does take naproxen two times per day for a few months now. She has never had an EGD done. Coloscopies have been normal in the past. Her PCP put her back on nexium and has her taking sucralfate as well. She says the sucralfate makes her have more reflux but she continues to take it. She denies n/v, melena, diarrhea or abdominal pain. CT abdomen/pelvis 03.30.24; Status post cholecystectomy Fatty infiltration of the liver. Minimal right hydronephrosis although no obstructive uropathy is seen Biochemical work up 03.30.24 CBC without pertinent abnormality, CMP with slightly elevated liver enzymes, lipase wnl ROS Const Constitutional: Positive for fatigue, headache(s), weakness and weight change (weight gain); No fever(s) ENT ENT: Positive for headache(s); No difficulty swallowing Cardio Cardiology: Positive for leg pain with exertion Gastro GI: Positive for abdominal pain, bloating, change in bowel habits, constipation, heartburn, excessive flatus, Blood in stool and nausea/dyspepsia; No belching, change in stool character, coffee ground emesis, cramping, diarrhea, difficulty swallowing, feeling full early, incontinent of stools, Vomiting blood/hematemesis, loose stools, Black,tarry stools, pain with swallowing, vomiting or other Musc Musculoskeletal: Positive for joint pain, muscle cramps, muscle weakness, stiffness, Arthritis, restless legs, leg pain at night and leg pain with exert ion Skin Skin: No yellowing of the eye or itchy eyes Neuro Neurology: Positive for weakness, headache(s) and restless legs Psych Psychiatric: Positive for anxiety and Positive for depression Endo Endocrine: Positive for fatigue and weight change (weight gain) Aller/Imm Allergy/Immunologic: No itchy eyes Elías/Lymp Hematologic/Lymphatic: No easy bleeding or easy bruising Exam Const General: cooperative and comfortable Nutritional Appearance: average body habitus and well nourished [facility] [place] Head: normal to inspection Ears: hearing grossly normal bilaterally Nose: external nose normal Face and sinus: normal facial exam Eyes General: appearance normal, both eyes and all related structures Neck Neck: normal visual inspection Chest Chest palpation & inspection: normal inspection of the chest Resp Effort & Inspection: normal respiratory effort Cardio Palpation: normal PMI GI Inspection: normal to inspection Percussion: normal to percussion Palpation: soft, no hepatosplenomegaly and tender Skin General: no rashes or lesions noted Neuro General: patient alert Extrem General: normal to inspection Psych Affect: normal affect Assessment and Plan Assessment and Plan (1) Epigastric abdominal pain: Status: Acute Plan: Patient is here today following [facility] ED visit 03.30.24 for epigastric pain. She has a hx of GERD and has been on Nexium in the past. She takes naproxen two times per day for the past couple of months. She is currently taking sucralfate and nexium prescribed by her PCP. Differential diagnosis includes GERD, gastritis or PUD -Will schedule patient for EGD -She would like to continue taking sucralfate although it makes her pain worse. She will also continue taking nexium -Order lab work; gastrin, anti parietal cell antibody, CBC and CMP Orders: Orders CBC W/Diff, Automated Today R10.13 - Epigastric pain Anti-Parietal Cell AB, QN Today R10.13 - Epigastric pain Comprehensive Metabolic Profil Today R10.13 - Epigastric pain Gastrin, Serum I have examined the patient and the H&P has been reviewed. There are no clinical changes since date of exam.
--- NOTE | 2024-05-21 08:21 | PCM.POST.ANE ---
Anesthesia: Postop Eval I Current Vital Signs Temperature: 97.8 F Pulse Rate: 68 Blood Pressure: 115/65 Respiratory Rate: 16 Pulse Ox: 96 Oxygen Delivery Method: Room Air Assessment Airway patent: Yes Spontaneous unlabored respirations: Yes Mental status: Awake and Calm nausea: No Vomiting: No Anesthesia Complication: No Fluid Hydration Crystalloid volume administer (ml): 400 Total IV fluid infused: 400 Progress Note Anesthesia document: Postop Eval 1 completed: Yes
--- NOTE | 2024-05-21 08:22 | OP.CCLET_ITS ---
05/21/2024 Nimisha Olvera Md Re : Upper GI endoscopy procedure for Shira Shen Dear Wade This procedure was performed on May. My impressions and recommendations are as follows: Impressions : - Normal esophagus. - Erythematous mucosa in the antrum and pylorus. Biopsied. - No gross lesions in the first portion of the duodenum. Recommendations : - Discharge patient to home. - Resume previous diet. - Continue present medications. - Await pathology results. - Gastric emptying study - HIDA scan to look for signs of sphincter of Oddi dysfunction My findings are described in the full procedure note, which is enclosed. If I can be of further assistance, please feel free to contact me at . Sincerely, Blayne Faustin, 05/21/2024 8:21:41 AM This report has been signed electronically.
--- NOTE | 2024-05-21 08:22 | OP.EGD_ITS ---
Patient Name: Shira Shen Procedure Date: 05/21/2024 7:59 AM Date of : 1950 Age: 74 Procedure: Upper GI endoscopy Indications: Epigastric abdominal pain, Functional Dyspepsia, Failure to respond to medical treatment Providers: Blayne Faustin DO Referring MD: Nimisha Olvera Md Medicines: Monitored Anesthesia Care Patient Profile: This is a 74 year old female. Refer to note in patient chart for documentation of history and physical. Patient has symptoms of chronic epigastric abdominal pain and chronic dyspepsia. Complications: No immediate complications. Procedure: Pre-Anesthesia Assessment: - Prior to the procedure, a History and Physical was performed, and patient medications and allergies were reviewed. The patient is competent. The risks and benefits of the procedure and the sedation options and risks were discussed with the patient. All questions were answered and informed consent was obtained. Patient identification and proposed procedure were verified by the physician in the pre-procedure area. Mental Status Examination: alert and oriented. Airway Examination: normal oropharyngeal airway and neck mobility. Respiratory Examination: clear to auscultation. CV Examination: normal. Prophylactic Antibiotics: The patient does not require prophylactic antibiotics. Prior Anticoagulants: The patient has taken no anticoagulant or antiplatelet agents except for NSAID medication. ASA Grade Assessment: II - A patient with mild systemic disease. After reviewing the risks and benefits, the patient was deemed in satisfactory condition to undergo the procedure. The anesthesia plan was to use monitored anesthesia care (MAC). Immediately prior to administration of medications, the patient was re-assessed for adequacy to receive sedatives. The heart rate, respiratory rate, oxygen saturations, blood pressure, adequacy of pulmonary ventilation, and response to care were monitored throughout the procedure. The physical status of the patient was re-assessed after the procedure. After obtaining informed consent, the endoscope was passed under direct vision. Throughout the procedure, the patient's blood pressure, pulse, and oxygen saturations were monitored continuously. The Endoscope was introduced through the mouth, and advanced to the second part of duodenum. The upper GI endoscopy was accomplished without difficulty. The patient tolerated the procedure well. Scope In: 8:10:11 AM Scope Out: 8:13:27 AM Total Procedure Duration Time 0 hours 3 minutes 16 seconds Findings: The examined esophagus was normal. Localized moderately erythematous mucosa without bleeding was found in the gastric antrum and at the pylorus. Biopsies were taken with a cold forceps for histology. Verification of patient identification for the specimen was done. Estimated blood loss was minimal. Biopsies were taken with a cold forceps for Helicobacter pylori testing. Verification of patient identification for the specimen was done. Estimated blood loss was minimal. No gross lesions were noted in the first portion of the duodenum. Impression: - Normal esophagus. - Erythematous mucosa in the antrum and pylorus. Biopsied. - No gross lesions in the first portion of the duodenum. Recommendation: - Discharge patient to home. - Resume previous diet. - Continue present medications. - Await pathology results. - Gastric emptying study - HIDA scan to look for signs of sphincter of Oddi dysfunction Procedure Code(s): --- Professional --- 15672, Esophagogastroduodenoscopy, flexible, transoral; with biopsy, single or multiple CPT copyright 2021 [employer]. All rights reserved. The codes documented in this report are preliminary and upon fbi field agent review may be revised to meet current compliance requirements. Blayne Faustin DO 05/21/2024 8:21:41 AM This report has been signed electronically. Number of Addenda: 0 Note Initiated On: 05/21/2024 7:59 AM
--- NOTE | 2024-05-21 09:03 | PCM.POSTANE2 ---
Anesthesia Postop Eval I Sum Postop Eval Completion status Anesthesia document: Postop Eval 1 completed: Yes Anesthesia Postop Eval I Summary Anesthesia Postop Eval I Summary: Anesthesia Postop Eval I: Assessment Summary Airway patent Yes 05/21/24 08:23 [email or web address] Spontaneous unlabored Yes 05/21/24 08:23 [email or web address] respirations Mental status Awake,Calm 05/21/24 08:23 [email or web address] nausea No 05/21/24 08:23 [email or web address] Vomiting No 05/21/24 08:23 [email or web address] Anesthesia Postop Eval I: Fluid Summary Crystalloid volume administer 400 05/21/24 08:23 [email or web address] (ml) Colloids volume administered ( ml) Blood Product volume administered (ml) Total IV fluid infused 400 05/21/24 08:23 [email or web address] Anesthesia Postop Eval I: Summary Notes Anesthesia Complication No 05/21/24 08:23 [email or web address] Anesthesia Complication Comment: Post-operative progress note Anesthesia: Postop Eval II Evaluation Mental status: Awake Pain Level: 0 nausea: No Vomiting: No
== END 2024-05-21 09:18 | disposition home or self-care (01) ==
LOC: EN 06:45 → AC 06:47
PROVIDERS: PCP Internal Medicine; Referring Provider Internal Medicine; Visit Provider Internal Medicine Gastroenterology
PROC: 0DJ08ZZ Inspection of Upper Intestinal Tract, Via Natural or Artificial Opening Endoscopic (ICD-10-PCS; CPT 43235; principal; 2024-05-21 07:55)
DX: R10.13 Epigastric pain (principal); K29.50 Unspecified chronic gastritis without bleeding
CPT/HCPCS: 43239; 88305; 88342; J7120; J2405

== ENCOUNTER → 2024-06-01 | Outpatient (CLI) | payer MEDICARE, MEDICAID, SELFPAY ==
--- NOTE | 2024-06-01 08:46 | US_ITS ---
STUDY: ABDOMINAL ULTRASOUND - RIGHT UPPER QUADRANT; ELASTOGRAPHY REASON FOR VISIT: Female, 74 years old. Epigastric pain. TECHNIQUE: Ultrasound evaluation of the right upper quadrant was performed with real-time and static lopez-scale imaging. Point quantification shear wave elastography was performed ([employer]). TECHNICAL QUALITY: Adequate. COMPARISON: Comparison is made with prior CT scan of the abdomen and pelvis dated March 30, 2024. FINDINGS: Liver: The liver measures 17.9 cm. There is increased echogenicity consistent with fatty infiltration. The bile ducts are within normal limits. There is hepatic color flow. The direction of portal flow is hepatopetal. There is no demonstrated mass lesion. Median liver stiffness measured 7 kPa. Gallbladder: The patient is status post cholecystectomy. Common Bile Duct (C.B.D.): The common bile duct measures 6.3 mm. Pancreas: There is normal echogenicity of the visualized pancreas. There is no demonstrated pancreatic mass or cyst. Right Kidney: Normal size of the right kidney. The right kidney measures 12.4 cm x 4.7 cm x 5.4 cm. Normal renal cortex. The right cortex measures 1.5 cm. There is no demonstrated renal mass or cyst. There is no right hydronephrosis. US/ABD Limited w/ Elastography IMPRESSION: 1. Liver stiffness measures 7 kPa compatible with F2-F3 (Mild to moderate liver fibrosis) Metavir score. 2. Status post cholecystectomy. 3. Fatty infiltration of the liver. Electronically Signed: Dejan Garcia MD at 10:40 EDT ,
== END | disposition home or self-care (01) ==
LOC: US 08:42
PROVIDERS: PCP Internal Medicine; Referring Provider Student in an Organized Health Care Education/Training Program; Visit Provider Student in an Organized Health Care Education/Training Program
DX: R10.13 Epigastric pain (principal); R74.8 Abnormal levels of other serum enzymes
CPT/HCPCS: 76705; 76981

== ENCOUNTER 2024-08-19 13:00 | Outpatient (RCR) | payer MEDICARE, MEDICAID, SELFPAY ==
--- NOTE | 2024-06-08 11:40 | HP.PTEVAL_ITS ---
Patient's Visit Information Visit Information Visit Information: FLOR MEDINA is a 74 year old F referred to Physical Therapy by ANGELINA Cortez with a diagnosis of UNILATERAL PRIMARY OSTEOARTHITIS. Date of Evaluation: 06/08/24 Physical Therapist: Kenny Fletcher, PT, Cert MDT, OCS Visit Plan Frequency: 2x /Week Duration: 4 Weeks Plan: PT INTERVENTIONS PROGRESSIVE BALANCE TRAINING ,BLE STRENGTHENING ,FUNCTIONAL STRENGTHENING AND ENDURANCE PROGRAM Subjective Subjective: This 74 y/o female present for physical therapy with right hip pain. 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 Patient c/o leg weakness . Patient was prescribed naproxen . Patient uses walker community distances but uses doesn't use it in house. Patient has had no falls. Patient denies paresthesia/tingling. Patient has difficulty in/out chair. Patient lives alone 1 story home no steps . Patient ahs walk in shower. Patient is able to bathing but difficulty has shower chair and dress self. Patient does cooking. Patient is unable to squat and kneel. Patient condition as well as comorbities impairs function. Patient goals to improve function. SOCIAL: VOCATION: retired Objective Objective: POSTURE: mild forward posture GAIT: reciprocal pattern mild forward posture with fww NEURO: denies paresthesia/tingling AROM: supine knee flexion 0-120 degrees ,hip supine flexion 100 degrees ,hip abduction 35 degrees MMT: quads/hams 4/5 ,hip 4-/5 ,ankle 4/5 BALANCE: fair+ STAIRS: one step at time with rails Special Tests R Hip Scour: Negative R Hip Trendelenberg - Glut Medius: Negative Balance/Special Test Scores CATSIB Score (Max score 120 seconds): 70 Lower Extremity Functional Score: 28 Goals Goal 1:: Patient to be I with HEP Goal Time Frame: 4-6 Weeks Goal 2:: Patient to improve LFES score by 5-10 # to improve function Goal Time Frame: 4-6 Weeks Goal 3:: Patient to improve CATSIBE by 5-10 # to improve gait and blance Goal Time Frame: 4-6 Weeks Goal 4:: Patient to demonstrate 50% improvement with increase function and gait Goal Time Frame: 4-6 Weeks Rehabilitation Potential Physical Therapy Diagnosis: Patient has weakness ,decrease gait , with comorbities with CVA thus benefit from skilled PT Rehabilitation Potential: Good Anticipated Interventions Patient/Client Instruction: Educate patient on: Condition and Plan of Care For the Purpose of:: To decrease pain, To increase ROM, To improve ability to perform ADL's, To increase tolerance to activity/condition/position, To improve ability of physical actions for home/community/work/leisure, To improve gait and locomotor functions, To increase flexibility/ROM, To improve endurance, To improve balance and To improve tolerance to ADL's Therapeutic Exercise to Include: Strength training, Endurance training, Balance training and Gait and locomotor training Comment: BLE QUADS/HAMS/HIP For the Purpose of:: To decrease pain, To improve muscle performance and motor function, To increase tolerance to activity/condition/position, To improve ability of physical actions for home/community/work/leisure, To improve health of tissue, To decrease soft tissue restriction, To increase flexibility/ROM, To improve balance and To improve tolerance to ADL's Text: Thank you for the opportunity to evaluate your patient. For Medicare and Medicare HMO plans, please review the plan of care and approve it. It will need to be FAXED BACK to us at [phone] for Medicare purposes. For Medicare only, by signing this I certify the plan of care. Please let me know if there are questions or concerns regarding this plan of care. Physician Signature: Date:
== END 2024-11-30 12:30 | disposition home or self-care (01) ==
LOC: PT 13:00
PROVIDERS: PCP Internal Medicine; Referring Provider Nurse Practitioner; Visit Provider Nurse Practitioner
DX: M16.11 Unilateral primary osteoarthritis, right hip (principal)
CPT/HCPCS: 97110; 97162; 97530

== ENCOUNTER → 2024-08-19 | Outpatient (CLI) | payer MEDICARE, MEDICAID, SELFPAY ==
[2024-08-19 09:46] LABS: Mucous, Urine 0 SEEN /hpf (<or=2+); Red Blood Cells-Urine 0 SEEN /hpf (0-5); White Blood Cells 0 SEEN /hpf (0-5)
[2024-08-19 12:15] LABS: Color, Urine Straw (Yellow); Glucose, Dipstick Normal (Normal); Ketone-Dipstick Negative (Negative); Leukocyte Esterase-Dipstick Negative /ul (Negative); Nitrite-Dipstick Negative (Negative); Occult Blood-Urine Negative /ul (Negative); Protein-Dipstick Negative (Negative); Urine Bilirubin Dipstick Negative (Negative); Urine Clarity Sl. Cloudy (Clear); Urine Urobilinogen Normal (Normal)
[2024-08-19 12:34] LABS: Bacteria 2+ /hpf (None Seen); Squamous Epithelial Cells - UA 0-5 SEEN /hpf (5-10)
[2024-08-19 12:34] LABS: Cholesterol 192 mg/dL (200); High Density Lipoprotein 57 mg/dL; Triglycerides 171 mg/dL; Very Low Density Lipoprotein 34 mg/dL (5-40)
[2024-08-19 12:51] LABS: Hemoglobin A1c 6.6 % (3.8-5.6)
== END | disposition home or self-care (01) ==
LOC: BIMLAB 09:03
PROVIDERS: PCP Internal Medicine; Referring Provider Internal Medicine; Visit Provider Internal Medicine
DX: R73.03 Prediabetes (principal); E78.2 Mixed hyperlipidemia; R39.15 Urgency of urination
CPT/HCPCS: 36415; 80061; 81001; 83036

== ENCOUNTER → 2024-10-07 | Outpatient (CLI) | payer MEDICARE, MEDICAID, SELFPAY ==
--- NOTE | 2024-10-07 14:45 | BI_ITS ---
PROCEDURE: SCRN MAMM (CAD)W/BENJA BILAT REASON FOR EXAM: F, Age 74 y/o, no family history. Routine annual follow-up. TECHNIQUE: Bilateral screening digital breast tomosynthesis with 2D and 3D images. Computer aided detection. COMPARISON: Prior exam(s) dating back to outside images dated August 04, 2020.. FINDINGS: There are scattered areas of fibroglandular density. Stable examination. No suspicious masses, areas of developing architectural distortion, or suspicious calcifications. BI/SCRN MAMM (CAD)W/BENJA BILAT IMPRESSION: BI-RADS 2: BENIGN. RECOMMEND ANNUAL MAMMOGRAPHIC SCREENING. Follow-up code: Routine Follow-up The patient will be notified of the results by letter. Reading Location: [place] [address]
--- NOTE | 2024-10-07 14:48 | BD_ITS ---
Female. Osteoporosis screening. PROCEDURE: DEXA BONE DENSITY STUDY REASON FOR EXAM: 74-year-old TECHNIQUE: DEXA scan of the lumbar spine and both hips. COMPARISON: None. FINDINGS: T-SCORES Lumbar spine: T-score 1.2 (bone mineral density 1.152 g per cm2.) Left hip: T-score -2.0. (Bone mineral density 0.625 g per cm2.) Right hip: T-score -1.9. (Bone mineral density 0.641 g per cm2.) FRAX* Results: 10 Year Probability of Fracture: Hip Fracture(1): 2.3% Major Osteoporotic Fracture(2): 11% *FRAX is a trademark of the [employer]'s [employer] for Metabolic Bone Disease, World Health Organization (WHO) Collaborating [employer]. 1-The 10-year probability of fracture may be lower than reported if the patient has received treatment. 2-Major Osteoporotic Fracture: Clinical Spine, Forearm, Hip or Shoulder. The T-scores are also available for review on the [facility] PACS or by accessing the [facility] electronic medical record. BD/Dexa Bone Density Study IMPRESSION: Osteopenia. Reading Location: [facility]
== END | disposition home or self-care (01) ==
PROVIDERS: PCP Internal Medicine; Referring Provider Internal Medicine; Visit Provider Internal Medicine
DX: Z12.31 Encounter for screening mammogram for malignant neoplasm of breast (principal); Z78.0 Asymptomatic menopausal state
CPT/HCPCS: 77063; 77067; 77080

== ENCOUNTER → 2024-12-09 | Outpatient (CLI) | payer MEDICARE, MEDICAID, SELFPAY ==
--- NOTE | 2024-12-09 12:38 | NEURO ---
NCS and/or EMG Patient Report Ordering Doctor: Nimisha Olvera DATE OF SERVICE: 12/09/24 Shira presents with numbness and tingling in the right hand. Electrodiagnostic findings: Right median motor nerve demonstrates normal distal latency and amplitude with reduced conduction velocity. Right ulnar motor response within normal limits. Normal right median and right ulnar F?waves. Prolonged right median sensory latency at the wrist. Needle EMG testing was performed in the right upper limb. All muscles tested showed no evidence of denervation with normal motor action potentials. Electrodiagnostic impression: This is an abnormal study of the right upper limb. 1. Electrodiagnostic findings suggestive of right-sided median mononeuropathy. This consistent with a mild right carpal tunnel syndrome Multi Select Codes Neurology Neurology Interp Codes: 83464-48 Musc test done w/n test comp (interp) and 46646-10 Nrv cndj test 7-8 studies (interp)
== END | disposition home or self-care (01) ==
PROVIDERS: PCP Internal Medicine; Referring Provider Internal Medicine; Visit Provider Internal Medicine
DX: R20.2 Paresthesia of skin (principal); R20.0 Anesthesia of skin
CPT/HCPCS: 95886; 95910

== ENCOUNTER 2024-12-28 10:30 | Outpatient (RCR) | payer MEDICARE, MEDICAID, SELFPAY ==
--- NOTE | 2024-12-04 11:14 | HP.PTEVAL_ITS ---
Patient's Visit Information Visit Information Visit Information: FLOR MEDINA is a 74 year old F referred to Physical Therapy by Dr. Nimisha Olvera MD with a diagnosis of PAIN IN RIGHT LEG ,CHRONIC PAIN. Date of Evaluation: 12/04/24 Physical Therapist: Kenny Fletcher, PT, Cert MDT, OCS Visit Plan Frequency: 2x /Week Duration: 4 Weeks Plan: PT INTERVENTIONS BLE STRENGTHENING( RLE QUADS/HAMS/HIP ,FUNCTIONAL STRENGTHENING ,BALANCE TRAINING , AND ENDURANCE PROGRAM Subjective Subjective: This 74 y/o female presents to physical therapy with right leg pain. Patient symptoms worse since Sep 2024. Patient seen Dr recommended PT and plans to do ENG test ( nerve conduction) due to c/os of tingling/paresthesia in right arm. Patient has h/o CVA 3 years ago . Patient doesn't see neurologist. Patient had bone density for osteoporosis.X-rays hips mild DJD. Patient pain located thigh groin to foot. Aggravating factors waling standing with rollator. A lleviating factors sitting. Patient uses rollator for gait. No recent falls.Coughing/sneezing-. Bowel.bladder -. Patient has difficulty sleeping. Patient had PT in past to hip pain. Patient was going to join . Patient lives along [facility] apartment. Patient was trying to get SECURITY DIRECT[employer] but insurance wont cover, Patient is unable to get in/ou tub. Patient condition affects QOLand function/housework. Patient goals gett stronger. SOCAIL : single VOCATIONL: retired Pain Right Lower Extremity: Pain Intensity (Out of 10): 7 Pain Intensity Range: 10 Objective Objective: POSTURE: mild forward posture GAIT: reciprocal pattern mild forward posture with rollator decrease stance time NEURO: c/o paresthesia/tingling right arm ,reflexes L3-4.L4-5,;5-S1 2/3 AROM: supine knee flexion 0-120 degrees ,hip supine flexion 100 degrees ,hip abduction 35 degrees MMT: ( peak force )quad right 18.9 ,left 17.9 hams right 16.9 right 17.8 ,hip flexion right 18,3 ,left 19.0 ,ankle 4/5 FLEXABILITY: hamstrings mod tight LUMBAR ROM: flexion mod loss ,extension severe loss pain ,side glides mod loss BALANCE: fair+ with rollator STAIRS: one step at time with rails Balance/Special Test Scores CATSIB Score (Max score 120 seconds): 36 Lower Extremity Functional Score: 12 30 Second Chair Rise Test Seconds: 9 Goals Goal 1:: Patient to be with HEP for strengthening Goal Time Frame: 4-6 Weeks Goal 2:: Patient to improve CATSIB with by 5 points to improve balance Goal Time Frame: 4-6 Weeks Goal 3:: Patient to LFES score by 5 points to improve QOL and function Goal Time Frame: 4-6 Weeks Goal 4:: Patient to improve peak force quads/hams/hip by 5-10# to improve gait Goal Time Frame: 4-6 Weeks Goal 5:: Patient to improve 30sec sit-stand by 3-5 reps to improve functional strength Goal Time Frame: 4-6 Weeks Rehabilitation Potential Physical Therapy Diagnosis: This patient has h/o CVA affected right side 3 years ago with patient have pain and weakness right leg and uses rollator with gait decrease balance thus benefit from skilLed PT Rehabilitation Potential: Good Anticipated Interventions Patient/Client Instruction: Educate patient on: Condition and Plan of Care For the Purpose of:: To decrease pain, To increase ROM, To improve muscle performance and motor function, To improve ability to perform ADL's, To increase tolerance to activity/condition/position, To improve ability of physical actions for home/community/work/leisure, To improve gait and locomotor functions, To increase flexibility/ROM, To improve endurance and To improve balance Therapeutic Exercise to Include: Strength training, Endurance training, Balance training, Postural training, Flexibilty training and Dynamic Lumbar Stabilization Comment: QUADS/HAMS/HIP For the Purpose of:: To decrease pain, To increase ROM, To improve muscle performance and motor function, To increase tolerance to activity/condition/position, To improve ability of physical actions for home/community/work/leisure, To improve gait and locomotor functions, To increase flexibility/ROM, To improve endurance and To improve tolerance to ADL's Text: Thank you for the opportunity to evaluate your patient. For Medicare and Medicare HMO plans, please review the plan of care and approve it. It will need to be FAXED BACK to us at [phone] for Medicare purposes. For Medicare only, by signing this I certify the plan of care. Please let me know if there are questions or concerns regarding this plan of care. Physician Signature: Date:
--- NOTE | 2024-12-28 10:58 | HP.PTREVAL ---
Re-Evaluation Intro: Dr. Nimisha Olvera MD, It has been my pleasure to treat FLOR MEDINA over the last 5 visits for PAIN IN RIGHT LEG ,CHRONIC PAIN. Please see the progress note below for an update on the physical therapy plan of care! Subjective Subjective: Seen DR Vigil ,provided new order x-ray right hip: Moderate to severe right hip arthrosis joint space narrowing subchondral sclerosis and spurring Discussed with patient options to included prednisone and Celebrex Objective Objective/Function: OSTURE: mild forward posture GAIT: reciprocal pattern mild forward posture with rollator decrease stance time NEURO: c/o paresthesia/tingling right arm ,reflexes L3-4.L4-5,;5-S1 2/3 AROM: right supine knee flexion 10-120 degrees ,hip supine flexion 90 degrees ,hip abduction 30 degrees ,IR RIGHT MMT: ( peak force )quad right 18.9 ,left 18.2 hams right 16.3 right 17.5 ,hip flexion right 18.5 ,left 19.1 ,ankle 4/5 FLEXABILITY: hamstrings mod tight Plan Plan Plan: PT INTERVENTIONS BLE STRENGTHENING (RLE QUADS/HAMS/HIP ,FUNCTIONAL STRENGTHENING ,BALANCE TRAINING , AND ENDURANCE PROGRAM Balance/Gait/Functional tests Balance/Special Test Scores CATSIB Score (Max score 120 seconds): 36 Lower Extremity Functional Score: 12 30 Second Chair Rise Test Seconds: 9 Goals Goals Goal 1:: Patient to be with HEP for strengthening Goal Time Frame: 4-6 Weeks Goal Progress: Progressing Goal 2:: Patient to improve CATSIB with by 5 points to improve balance Goal Time Frame: 4-6 Weeks Goal Progress: Progressing Goal 3:: Patient to LFES score by 5 points to improve QOL and function Goal Time Frame: 4-6 Weeks Goal Progress: Progressing Goal 4:: Patient to improve peak force quads/hams/hip by 5-10# to improve gait Goal Time Frame: 4-6 Weeks Goal Progress: Progressing Goal 5:: Patient to improve 30sec sit-stand by 3-5 reps to improve functional strength Goal Time Frame: 4-6 Weeks Goal Progress: Progressing Goal 6:: Patient to improve AROM hip by 5 -10 degrees to improve function and gait( new goal) Anticipated Interventions Anticipated Interventions Patient/Client Instruction: Educate patient on: Condition and Plan of Care For the Purpose of:: To decrease pain, To increase ROM, To improve muscle performance and motor function, To improve ability to perform ADL's, To increase tolerance to activity/condition/position, To improve ability of physical actions for home/community/work/leisure, To improve gait and locomotor functions, To increase flexibility/ROM, To improve endurance and To improve balance Therapeutic Exercise to Include: Strength training, Endurance training, Balance training, Postural training, Flexibilty training and Dynamic Lumbar Stabilization Comment: QUADS/HAMS/HIP For the Purpose of:: To decrease pain, To increase ROM, To improve muscle performance and motor function, To increase tolerance to activity/condition/position, To improve ability of physical actions for home/community/work/leisure, To improve gait and locomotor functions, To increase flexibility/ROM, To improve endurance and To improve tolerance to ADL's Re-Evaluation Ending Re-evaluation ending: Please do not hesitate to contact me at [phone] by phone or if you have questions or concerns regarding this new plan of care! Sincerely, Kenny Fletcher, PT, Cert MDT, OCS
--- NOTE | 2025-04-13 12:14 | HP.PT.NRP ---
Patient Information Patient Information: FLOR MEDINA was seen in my office for initial evaluation on 12/04/24. The following Plan of Care was established for this patient: POC Established Initial Frequency: 2x /Week Initial Duration: 4 Weeks Anticipated Interventions Patient/Client Instruction: Educate patient on: Condition and Plan of Care For the Purpose of:: To decrease pain, To increase ROM, To improve muscle performance and motor function, To improve ability to perform ADL's, To increase tolerance to activity/condition/position, To improve ability of physical actions for home/community/work/leisure, To improve gait and locomotor functions, To increase flexibility/ROM, To improve endurance and To improve balance Therapeutic Exercise to Include: Strength training, Endurance training, Balance training, Postural training, Flexibilty training and Dynamic Lumbar Stabilization For the Purpose of:: To decrease pain, To increase ROM, To improve muscle performance and motor function, To increase tolerance to activity/condition/position, To improve ability of physical actions for home/community/work/leisure, To improve gait and locomotor functions, To increase flexibility/ROM, To improve endurance and To improve tolerance to ADL's Last Seen Last Seen: This patient was last seen in our office . Pertinent comments regarding their Physical therapy will appear below: At this point I will be discontinuing this patient from physical therapy. I would be happy to see this patient again in the future if found appropriate by the physician. Thank you! Kenny Fletcher, PT, Cert MDT, OCS Balance/Gait/Functional tests Balance/Special Test Scores CATSIB Score (Max score 120 seconds): 36 Lower Extremity Functional Score: 12 30 Second Chair Rise Test Seconds: 9
== END 2024-12-28 19:00 | disposition home or self-care (01) ==
LOC: PT 10:30
PROVIDERS: PCP Internal Medicine; Referring Provider Internal Medicine; Visit Provider Internal Medicine
DX: M79.604 Pain in right leg (principal); G89.29 Other chronic pain
CPT/HCPCS: 97110; 97162; 97530

== ENCOUNTER 2025-02-11 09:00 | Outpatient (CLI) | payer MEDICARE, MEDICAID, SELFPAY ==
--- NOTE | 2025-02-16 08:19 | EKG12_ITS ---
Test Reason : PRE OP Blood Pressure : */* mmHG Vent. Rate : 74 BPM Atrial Rate : 74 BPM P-R Int : 174 ms QRS Dur : 128 ms QT Int : 430 ms P-R-T Axes : 34 -18 8 degrees QTcB Int : 477 ms Normal sinus rhythm Right bundle branch block Left ventricular hypertrophy with QRS widening Abnormal ECG Confirmed by VALERIE CARRANZA, MALCOLM ([id number]), managing editor ЕЛЕНА TAPIA ([id number]) on 02/17/2025 7:04:32 AM Referred By: Dain Blanchard Confirmed By: MALCOLM PADILLA MD
[2025-02-16 09:15] LABS: Absolute Lymphocyte Count 2.28 X10^3/uL (0.83-4.51); Absolute Neutrophil Count 2.8 X10^3/uL (2.0-7.7); Basophil# 0.04 X10^3/uL; Basophil% 0.7 % (0-1); Eosinophils% 3.4 % (0-5); Hematocrit 35.5 % (37-47); Hemoglobin 11.7 g/dL (12.0-15.0); Lymphocyte # 2.28 X10^3/ul (0.83-4.51); Lymphocyte % 38.3 % (19-41); Mean Corpuscular Hgb 28.9 pg (27.0-32.0); Mean Corpuscular Volume 87.7 fL (81-99); Mean Platelet Vol. 11.2 fl (6.2-12.0); Monocyte# 0.62 X10^3/uL; Monocyte% 10.4 % (0-10); NRBC Flagged by Analyzer 0 % (0-5); Platelet Count 186 K/mm3 (150-450); RBC Distribution Width CV 13.2 % (11.6-14.6); RBC Distribution Width SD 41.7 fl (35.1-43.9); Red Blood Count 4.05 M/mm3 (4.2-5.4)
[2025-02-16 09:38] LABS: International Normalized Ratio 1.1; Prothrombin Time (Protime)PT. 14.9 SECONDS (11.7-14.9)
[2025-02-16 09:39] LABS: Partial Thromboplast Time 31.6 Seconds (24.1-36.2)
[2025-02-16 09:55] LABS: Anion Gap 13 (5-15); BUN 16 mg/dL (4-19); BUN/Creat Ratio 19.7 RATIO (10-20); Calcium,Total 10.4 mg/dL (7.6-11.0); Carbon Dioxide 25.2 mmol/L (21.0-32.0); Chloride 100 mmol/L (98-108); Creatinine, Serum 0.83 mg/dL (0.70-1.20); EST Glomerular Filtration Rate 75 (>60); Glucose 140 mg/dL (70-99); Potassium 4.4 mmol/L (3.3-5.1); Sodium Level 138 mmol/L (133-145)
[2025-02-16 10:08] LABS: Hemoglobin A1c 7.1 % (<=5.6)
[2025-02-16 10:53] LABS: Magnesium 2.2 mg/dL (1.5-2.2)
[2025-02-17 04:07] LABS: Fructosamine 261 umol/L (0-285)
--- NOTE | 2025-02-17 11:21 | PAT.ANE_ITS ---
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 When Was Last Pacemaker Check QUESTION #4 FULL TEXT: You/Your Family Experience fever (hyperthermia) with Anesthesia Last Oral Intake Last Oral intake: Last Oral Intake NPO since Meds taken in AM with sips of water? Meds patient instructed to take am of surgery PONV PONV - mineral resources inspector: PONV - mineral resources inspector Female Yes 02/11/25 09:23 HX of Motion Sickness No 02/11/25 09:23 HX of N/V After Surgery No 02/11/25 09:23 Non-Smoker Yes 02/11/25 09:23 Duration of Surgery greater Yes 02/11/25 09:23 than 60 minutes Number of Risk Factors 3 02/11/25 09:23 PONV Score Moderate Risk 02/11/25 09:23 Height & Weight Height & Weight: Anesthesia: Height & Weight Height 5 ft 4 in 01/20/25 11:14 Respiratory Assessment Respiratory Assessment - mineral resources inspector: Respiratory Tract Infection Hx - mineral resources inspector Hx Respiratory Tract Infection No 02/11/25 09:23 STOP Sleep Apnea STOP Sleep Apnea - mineral resources inspector: STOP Sleep Apnea - mineral resources inspector Hx Hypertension Yes: CONTROLLED WITH MEDS 02/11/25 09:23 Hx Sleep Apnea Yes 02/11/25 09:23 CPAP Yes: NONCOMPLIANT 02/11/25 09:23 BIPAP No 02/11/25 09:23 Do you snore loudly (louder than talking or can be heard Do you often feel tired/ fatigued/ sleepy during daytime? Has anyone observed you stop breathing during sleep? STOP Results Positive 02/11/25 09:23 QUESTION #5 FULL TEXT : Do you snore loudly (louder than talking or can be heard through closed doors)? Tobacco Use History Tobacco Use History - mineral resources inspector: Tobacco Use History - mineral resources inspector Tobacco Use Non-smoker 04/22/22 10:12 Smoking Status Never smoker 02/11/25 09:23 Hx Tobacco Use No 02/11/25 09:23 Years Smoking Packs Smoked per Day Smoking Cessation Date was within the last 15 years Hx Smoking Cessation Date Hx Smoking Cessation Counseling Hematologic Medial History Hematologic Hx - mineral resources inspector: Hematologic Medical Hx - documentation clerk Hx of Blood Transfusion No 02/11/25 09:23 Hx of Transfusion in last 3 No 02/11/25 09:23 Months Date of Last Transfusion (if within last 3 months) Ever experience any problems No 02/11/25 09:23 with transfusion(s)? Specify any problems Hx of Preganancy in last 3 No 02/11/25 09:23 Months Nurse Filling Out Transfusion DSCHRIBER 02/11/25 09:23 & Questions: Date: 02/11/25 02/11/25 09:23 Time: 09:29 02/11/25 09:23 Patient unable to answer at this time (ie. confused, unrespo /Reproduction History /Reproductive History - mineral resources inspector: /Reproductive Hx- mineral resources inspector Hx Now No 02/11/25 09:23 Gestational Age (in weeks): EDC: Hx Hx Para Hx Section SAB No 02/11/25 09:23 PFSH Medical History Post-menopausal Walker as ambulation aid Anemia Dietary restriction Constipation Asthma History of pain when walking History of edema Family history of colon cancer in mother Hx of bladder problems Wears glasses Bipolar disorder Arthritis Bladder disease High cholesterol Gastric reflux Non-smoker CPAP (continuous positive airway pressure) dependence History of echocardiogram History of stress test Stroke/cerebrovascular accident Hx of migraines Radicular pain in left arm Obesity (BMI 30.0-34.9) Depression Bipolar 1 disorder Hypertension Home Medications ?Medication ?Instructions ?Recorded ?Last Taken ?Type multivitamin (Daily Multiple 1 ea PO DAILY supplement 08/22/15 05/20/24 History tablet) aspirin 81 mg tablet 81 mg PO DAILY anti-platelet 04/03/22 05/17/24 History handicap placard #1 ea 11/20/23 Unknown Rx Rollator walker with brakes #1 ea 05/19/24 Unknown Rx acetaminophen 650 mg 650 mg PO Q12H PRN pain 05/03 03/25 Unknown History tablet,extended release (8 Hour Pain Reliever) blood pressure monitor (Blood #1 ea 05/19/24 Unknown R x Pressure Kit) propranolol 120 mg capsule,24 120 mg PO DAILY BP #90 c aps 08/19/24 Unknown Rx hr,extended release montelukast 10 mg tablet 10 mg PO QHS asthma #90 tabs 11/25/24 Unknown Rx (Singulair) loratadine 10 mg tablet (Claritin) 10 mg PO DAILY PRN allergy symptoms 01/15/25 Unknown History sertraline 100 mg tablet 100 mg PO DAILY DEPRESSION # 90 tabs 02/10/25 Unknown Rx amlodipine 5 mg tablet 10 mg PO DAILY BP 02/11/25 U nknown History atorvastatin 40 mg tablet 40 mg PO QHS HDL 02/11/25 Un known History calcium carbonate (Calcium 500) 1,000 mg PO DAILY PRN dyspepsia 02/11/25 Unknown History furosemide 20 mg tablet (Lasix) 20 mg PO BID #10 tabs 02/11/25 Unknown Rx pantoprazole 40 mg tablet,delayed 40 mg PO DAILY GERD 02/11/25 Unknown History release ramipril 5 mg capsule 5 mg PO QDAY #30 caps Unknown Rx sucralfate 1 gram tablet 1 g PO DAILY GERD 02/11/25 U nknown History Allergy/AdvReac Type Severity Reaction Status Date / Time codeine Allergy Other Verified 02/11/25 12:53 Penicillins Allergy Itching Verified 02/11/25 12:53 Qrthdtr-EIC-FqW Reductase Allergy Unknown Verified 02/11/25 12:53 Inhibitor (Nhjryza-Eks-Tfm Reductase Inhibitor) Sulfa (Sulfonamide Allergy Itching Verified 02/11/25 12:53 Antibiotics) Family History Mother Colon cancer CAD (coronary artery disease) Angina at rest Breast cancer Cervical cancer Depression Hypertension Grandmother Diabetes Maternal grandmother CAD (coronary artery disease) Arthritis Heart disease Grandfather CAD (coronary artery disease) Bleeding disorder Father CAD (coronary artery disease) Hypertension Surgical History Hx of colonoscopy History of esophagogastroduodenoscopy (EGD) Hx of surgical procedure History of bladder suspension procedure H/O: hysterectomy Social History household members: none housing: house current occupational status: retired 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 Normal sinus rhythm. Right bundle branch block. Left ventricular hypertrophy with QRS widening. Changes seen as far back as March 29, 2022. Recommendation Anesthesia Recommendation Anesthesia recommendation: OPTIMIZED for anesthesia
--- OUTSIDE RECORDS SUMMARY | 2025-03-02 05:22 | XMS RPT_ITS | CCD ---
Author Organization [facility] Care Team Providers Care Senior Planning Manager Name Role Phone ROCK JENNINGS Unavailable Unavailable ROCK JENNINGS Unavailable Unavailable EULALIO SYKES Unavailable Unavailable LENORA HODGES Unavailable Unavailable Eulalio Sykes Unavailable Unavailable ROCK JENNINGS Unavailable Unavailable Eulalio Sykes Unavailable Unavailable ROCK JENNINGS Unavailable Unavailable Eulalio Sykes Unavailable Unavailable Eulalio Sykes MD Primary Care Provider Jonathan Barrera Unavailable Eulalio Sykes MD Unavailable Eulalio Sykes MD Primary Care Provider Jonathan Barrera Unavailable [phone] Eulalio Sykes MD Unavailable [phone] Eulalio Sykes Primary Care Provider Prakash, Dr. Bryanna Bone Admit Provider Prakash, Dr. Bryanna Bone Attending Provider Prakash, Dr. Bryanna Bone Other Provider Dr. Eulalio Sykes Referring Provider Dr. Sam Arteaga Attending Provider Dr. Nimisha Olvera Attending Provider Dr. Nimisha Olvera Primary Care Provider Dr. Nimisha Olvera Referring Provider [phone] Eulalio Sykes MD Primary Care Provider Jonathan Barrera Unavailable Eulalio Sykes MD Unavailable [place], Dr. Tsai Primary Care Provider Sementi, Dr. Bryanna Bone Admit Provider Sementi, Dr. Bryanna Bone Attending Provider Sementi, Dr. Bryanna Bone Other Provider Monet, Dr. Tsai Referring Provider Chandler, Dr. Vargas Attending Provider Dr. Nimisha Olvera Attending Provider [phone] Dr. Nimisha Olvera Primary Care Provider Dr. Nimisha Olvera Referring Provider [phone] Leydi SUPERVISOR REWORK, SUPERVISOR REWORK-C Xin Attending Provider Leydi SUPERVISOR REWORK, SUPERVISOR REWORK-C Xin Referring Provider Monet, Dr. Tsai Primary Care Provider Monet, Dr. Tsai Referring Provider Dr. Eulalio Sykes Referring Provider Dr. Nimisha Olvera Primary Care Provider Dr. Nimisha Olvera Attending Provider [phone] Eulalio Sykes MD Primary Care Provider Jonathan Barrera Unavailable Eulalio Sykes MD Unavailable EULALIO SYKES Primary Care Unavailable EULALIO SYKES Referring Unavailable EULALIO SYKES Attending Unavailable EULALIO SYKES Primary Care Unavailable SEGUNDO ROBERTS Attending Unavailable EULALIO SYKES Primary Care Unavailable EULALIO SYKES Referring Unavailable EULALIO SYKES Attending Unavailable Dr. Nimisha Olvera Primary Care Provider Dr. Nimisha Olvera Attending Provider [phone] Dr. Nimisha Olvera Referring Provider [phone] Dr. Nimisha Olvera Primary Care Provider Dr. Nimisha Olvera Attending Provider [phone] Dr. Nimisha Olvera Referring Provider Dr. Lisa Sow Attending Provider Dr. Nimisha Olvera Primary Care Provider Dr. Nimisha Olvera Attending Provider [phone] Dr. Nimisha Olvera Referring Provider [phone] Monet CARRANZA, Eulalio Goetz Primary Care Provider Leilani Denise Attending Unavailable Waed, Nimisha Referring Unavailable Brightwood, Nimisha Primary Care Unavailable Wade, Nimisha Consulting Unavailable Ponce Villedaril Attending Unavailable Geovanny Norman Referring Unavailable Brightwood, Nimisha Primary Care Unavailable Geovanny Norman Consulting Unavailable Darryl Villeda Attending Unavailable Dain Blanchard Referring Unavailable Brightwood, Nimisha Primary Care Unavailable Darryl Villeda Attending Unavailable Wade, Nimisha Primary Care Unavailable Geovanny Norman Attending Unavailable Brightwood, Nimisha Referring Unavailable Wade, Nimisha Primary Care Unavailable Wade, Nimisha Attending Unavailable Brightwood, Nimisha Referring Unavailable Wade, Nimisha Primary Care Unavailable Dain Blanchard Consulting Unavailable Dain Blanchard Admitting Unavailable Dain Blanchard Attending Unavailable Brightwood, Nimisha Primary Care Unavailable Dain Blanchard Referring Unavailable Geovanny Norman Consulting Unavailable Roxie, Blayne Attending Unavailable Brightwood, Nimisha Primary Care Unavailable Brightwood, Nimisha Referring Unavailable Barry Webb Attending Unavailable Brightwood, Nimisha Primary Care Unavailable Geovanny Norman Referring Unavailable Petra Junior Attending Unavailable Wade, Nimisha Referring Unavailable Brightwood, Nimisha Primary Care Unavailable Dain Blanchard Attending Unavailable Wade, Nimisha Referring Unavailable Brightwood, Nimisha Primary Care Unavailable Brightwood, Nimisha Attending Unavailable Brightwood, Nimisha Referring Unavailable Brightwood, Nimisha Primary Care Unavailable Geovanny Norman Attending Unavailable Wade, Nimisha Referring Unavailable Wade, Nimisha Primary Care Unavailable Larisas Fonseca Attending Unavailable Brightwood, Nimisha Primary Care Unavailable Brightwood, Nimisha Attending Unavailable Wade, Nimisha Referring Unavailable Brightwood, Nimisha Primary Care Unavailable Geovanny Norman Attending Unavailable Geovanny Norman Referring Unavailable Wade, Nimisha Primary Care Unavailable Petra Junior Attending Unavailable FervannesaoPetra Referring Unavailable Brightwood, Nimisha Primary Care Unavailable Geovanny Norman Attending Unavailable Wade, Nimisha Referring Unavailable Brightwood, Nimisha Primary Care Unavailable Perla Mclean Attending Unavailable Wade, Nimisha Referring Unavailable Brightwood, Nimisha Primary Care Unavailable Larissa Fonseca Attending Unavailable Wade, Nimisha Primary Care Unavailable Dain Blanchard Attending Unavailable Wade, Nimisha Referring Unavailable Brightwood, Nimisha Primary Care Unavailable Larissa Fonseca Attending Unavailable Brightwood, Nimisha Primary Care Unavailable Wade, Nimisha Primary Care Unavailable John Liriano Attending Unavailable Wade, Nimisha Attending Unavailable Wade, Nimisha Referring Unavailable Wade, Nimisha Primary Care Unavailable Geovanny Norman Attending Unavailable Claudia ROBIN, Geovanny Referring Unavailable Wade, Nimisha Primary Care Unavailable Dain Blanchard Attending Unavailable Dain Blanchard Referring Unavailable Wade, Nimisha Primary Care Unavailable Geovanny Norman Attending Unavailable Geovanny Norman Referring Unavailable Wade, Nimisha Primary Care Unavailable Wade, Nimisha Attending Unavailable Wade, Nimisha Referring Unavailable Brightwood, Nimisha Primary Care Unavailable Geovanny Norman Attending Unavailable Geovanny Norman Referring Unavailable Wade, Nimisha Primary Care Unavailable Perla Mclean Attending Unavailable Perla Mclean Referring Unavailable Wade, Nimisha Primary Care Unavailable Brightwood, Nimisha Attending Unavailable Wade, Nimisha Referring Unavailable Wade, Nimisha Primary Care Unavailable Petra Junior Attending Unavailable Ferullo Petra Referring Unavailable Brightwood, Nimisha Primary Care Unavailable Perla Mclean Attending Unavailable Perla Mclean Referring Unavailable Brightwood, Nimisha Primary Care Unavailable NURSE, BIM Attending Unavailable Brightwood, Nimisha Referring Unavailable Wade, Nimisha Primary Care Unavailable Friend, Blayne Attending Unavailable Nimisha Olvera Referring Unavailable Nimisha Olvera Primary Care Unavailable Friend, Blayne Consulting Unavailable Allergies Allergy Classification Reported Allergen(s) Allergy Type Date of Onset Reaction(s) Facility (20 sources) codeine; Translations: [CODEINE] Drug Allergy 5 Other [facility] Repository (20 sources) Hmg-Coa Reductase Inhibitors (Statins); Translations: [[id number] REDUCTASE INHIBITORS] Propensity to adverse reactions to drug (disorder) 4 Itching, Unknown [facility] Repository (20 sources) levoFLOXacin; Translations: [LEVOFLOXACIN] Drug Allergy 6 Other: See Comments [facility] Repository (20 sources) Penicillins; Translations: [PENICILLINS] Propensity to adverse reactions to drug (disorder) 5 Rash [facility] Repository (20 sources) pravastatin; Translations: [PRAVASTATIN] Drug Allergy 1 Itching [facility] Repository (20 sources) Sulfonamides (Antibiotic); Translations: [SULFA (SULFONAMIDE ANTIBIOTICS)] Propensity to adverse reactions to drug (disorder) 5 Itching [facility] Repository (20 sources) Doxycycline; Translations: [DOXYCYCLINE] Drug Allergy 9 Rash [facility] (13 sources) Jxokkcw-Git-Nfq Reductase Inhibitor; Translations: [Rrvehna-Dvu-Cuo Reductase Inhibitor] Allergy to substance 1 Unknown [facility] Medications Current Medications Medication Drug Class(es) Dates Sig (Normalized) Sig (Original) acetaminophen 325 mg oral tablet (20 sources) Start: 04-03-2022 Acetaminophen (Tylenol) 325 mg Tablet Active 1000 MG PO EVERY 6 HOURS April 03, 2022 12:00am Start: 03-27-2018 take 2 tablets by mo uth every six hours as needed acetaminophen (TYLENOL EXTRA STRENGTH) 500 mg tablet Take 2 tablets by mouth every 6 hours as needed for Pain. Take every 6 hours for first three days. Then take every 6 hours as needed. 60 tablet 03/27/2018 Active Comment on above: Take 2 tablets by mo uth every 6 hours as needed for Pain. Take every 6 hours for first three days. Then take every 6 hours as needed. amLODIPine 5 mg oral tablet (20 sources) Dihydropyridine Calcium Channel Alexx Start: End: take 1 tablet by mouth once daily Amlodipine Active 0 .ROUTE .COMPLEX September 25, 2023 9:10am TAKE 1 TABLET BY MOUTH EVERY DAY Start: 04-03-2022 End: 11-05-2022 take 1 tablet by mouth once daily Amlodipine (Norvasc) 2.5 mg tablet Discontinued 2.5 MG PO DAILY October 29, 2022 3:31pm November 05, 2022 9:02am Comment on above: Take 1 tablet by dav th once daily. ascorbic acid 500 mg oral tablet (20 sources) Vitamin C Start: 08-22-2015 Ascorbic Acid (Vitamin C) (C-1000) 1,000 MG tablet Active 500 MG PO DAILY August 22, 2015 1:00am Start: 08-22-2015 take 1 tablet by mouth once da ro Ascorbic Acid (Vitamin C) (C-1000) 1,000 MG tablet Active 1000 MG PO DAILY August 22, 2015 1:00am take 1 dose by mouth once daily Ascorbic Acid 500 mg cpER Take 1 Each by mouth once daily. Active Comment on above: Take 1 Each by mouth once daily. Cranberry Obzj-F-Doxfngym Coag (5 sources) Non-Standardized Food Allergenic Extract, Non-Standardized Plant Allergenic Extract, Vitamin C Start: 05-03-2022 Cranberry Kpgj-O-Pyzyhdyr Coag (Azo Cranberry Plus Probiotic) 250-30-50 rh-hx-jpzzvde tablet Active TABLET PO May 02, 2022 11:00pm Start: 05-03-2022 Cranberry Conc -C-Bacillus Coag (Azo Cranberry Plus Probiotic) 250-30-50 sg-db-cqbjbck tablet Active TABLET PO May 03, 2022 12:00am atorvastatin 40 mg oral tablet (20 sources) HMG-CoA Reductase Inhibitor Start: 04-03-2022 End: 11-20-2023 take 40 mg by mouth once daily Atorvastatin Active 40 MG PO DAILY November 20, 2023 9:49am Comment on above: Take 1 tablet by dav th daily at bedtime. cholecalciferol 0.025 mg oral tablet (20 sources) Vitamin D Start: 03-23-2016 take 1 tablet by mouth once daily Cholecalciferol (Vitamin D3) (Vitamin D3) 1,000 UNIT tablet Active 1000 UNIT PO DAILY March 23, 2016 12:00am Start: 03-23-2016 Cholecalcifero l (Vitamin D3) (Vitamin D) 1,000 UNIT tablet Active 2000 UNIT PO DAILY March 23, 2016 12:00am Comment on above: Take 1,000 Units by mouth once daily. COMPOUNDED PRESCRIPTION (20 sources) Start: 05-23-2018 COMPOUNDED PRESCRIPTION Indications: JANE (obstructive sleep apnea) CPAP 9 cmH2O with humidification and a standard size ResMed AirFit N10 nasal mask without chin strap 1 Each 05/23/2018 Active Start: 05-23-2018 COMPOUNDED PRE SCRIPTION Indications: JANE (obstructive sleep apnea) CPAP 9 cmH2O with humidification and a standard size ResMed AirFit N10 nasal mask without chin strap 1 Each 0 05/23/2018 Suspended Start: 05-23-2018 COMPOUNDED PRE SCRIPTION Indications: JANE (obstructive sleep apnea) CPAP 9 cmH2O with humidification and a standard size ResMed AirFit N10 nasal mask without chin strap 1 Each 0 05/23/2018 Active Comment on above: CPAP 9 cmH2O with hu midification and a standard size ResMed AirFit N10 nasal mask without chin strap cranberry fruit extract (CRANBERRY ORAL) (20 sources) take 1 tablet by mouth once daily cranberry fruit extract (CRANBERRY ORAL) Take 1 tablet by mouth once daily. Active take 1 tablet by mouth once george y cranberry fruit extract (CRANBERRY ORAL) Take 1 tablet by mouth once daily. 0 Active take 1 tablet by mouth once george y cranberry fruit extract (CRANBERRY ORAL) Take 1 tablet by mouth once daily. 0 Suspended cranberry fruit extract (CRANBERRY ORAL) Take by mouth. 0 Active Comment on above: Take by mouth. Take 1 tablet by dav th once daily. Cranberry (5 sources) Non-Standardized Food Allergenic Extract, Non-Standardized Plant Allergenic Extract Start: 10-01-2022 take 500 mg by mouth once daily at mealtime Cranberry Active 500 MG PO DAILY October 01, 2022 1:00am administer with meals Start: 10-01-2022 take 500 mg by mouth once daily at mealtime Cranberry Active 500 MG PO DAILY October 01, 2022 12:00am administer with meals handicap placard (1 source) Start: 11-20-2023 handicap placard Active 0 .ROUTE .MEDSUPPLY 1 November 20, 2023 12:00am Length of time: 5 years Diagnosis - Impaired physical mobility (z74.09) lactobacillus acidophilus 1.5 mg oral capsule (5 sources) Start: 10-01-2022 Lactobacillus Acidophilus (Probiotic Acidophilus) 1.5 mg (250 million cell) Capsule Active 1000 MMU CELLS PO DAILY October 01, 2022 1:00am montelukast 10 mg oral tablet (20 sources) Leukotriene Receptor Antagonist Start: 03-25-2021 End: 08-29-2023 take 1 tablet by mouth at bedtime Montelukast (Singulair) 10 mg tablet Active 10 MG PO AT BEDTIME August 29, 2023 3:21pm Comment on above: Take 1 tablet by dav th daily at bedtime. Multivitamin (Daily Multiple) 1 EACH tablet (12 sources) Start: 08-22-2015 take 1 tablet by mouth once daily Multivitamin (Daily Multiple) 1 EACH tablet Active 1 EACH PO DAILY August 22, 2015 12:00am Start: 08-22-2015 take 1 tablet by dav th once daily Multivitamin (Daily Multiple) 1 EACH tablet Active 1 EACH PO DAILY August 22, 2015 1:00am multivitamins(MULTIPLE VITAM IN TAB) (20 sources) Start: 03-29-2009 multivitamins( MULTIPLE VITAMIN TAB) Take one(1) tablet daily. 0 03/29/2009 Suspended Start: 03-29-2009 multivitamins( MULTIPLE VITAMIN TAB) Take one(1) tablet daily. 0 03/29/2009 Active Comment on above: Take one(1) tablet d aily. oxybutynin chloride 5 mg oral tablet (1 source) Cholinergic Muscarinic Antagonist Start: 5 take 5 mg by mouth once daily Oxybutynin Chloride Active 5 MG PO DAILY August 22, 2015 1:00am polyethylene glycol 3350 50381 mg powder for oral solution (20 sources) Osmotic Laxative Start: 3 Polyethylene Glycol 3350 (Miralax) 17 gram/dose powder Active 4 GM PO DAILY June 17, 2023 12:00am Start: 05-03-2022 End: 05-17-2022 Polyethylene Glycol 3350 (Mi ralax) 17 gram powder in packet Discontinued 17 GM PO TWICE A DAY May 03, 2022 12:00am May 17, 2022 4:55pm Start: 03-27-2018 End: 05-24-2022 polyethylene glycol 3350 (OH RALAX) 17 gram/dose powder Take 17 g by mouth once daily as needed (constipation). for constipation. 1 Bottle 1 03/27/2018 05/24/2022 Discontinued (Course of therapy completed) Comment on above: Take 17 g by mouth o nce daily as needed (constipation). for constipation. 24 hr propranolol hydrochloride 120 mg extended release oral capsule (20 sources) beta-Adrenergic Alexx Start: 05-21-20 End: 11-14-19 take 120 mg by mouth once daily Propranolol Active 120 MG PO DAILY November 14, 2023 9:11am Start: 05-21-2023 End: 05-21-2023 take 2 capsules by mouth once daily Propranolol Discontinued 120 MG PO As Directed May 21, 2023 9:52am May 21, 2023 4:19pm Take 2 capsules by mouth daily. Start: 05-04-2023 End: 05-21-2023 take 2 capsules by mouth once daily Propranolol Discontinued 60 MG PO As Directed May 17, 2023 11:43am May 21, 2023 9:53am Take 2 capsules by mouth daily. Start: 04-21-2022 End: 05-04-2023 take 120 mg by mouth once daily Propranolol Discontinu ed 120 MG PO DAILY April 21, 2022 12:00am May 04, 2023 11:47am Start: 03-28-2022 End: 03-28-2023 take 1 capsule by mouth once daily propranolol ER (INDERAL LA) 120 mg 24 hr capsule Indications: Headache, unspecified headache type , Primary hypertension Take 1 capsule by mouth once daily. 90 capsule 3 03/28/2022 03/28/2023 Active Start: 11-08-2021 End: 11-08-2022 take 1 capsule by mouth once daily propranolol ER (INDERAL LA) 80 mg 24 hr capsule Take 1 capsule by mouth once daily. 90 capsule 3 11/08/2021 03/28/2022 Discontinued Start: 04-21-2021 End: 04-21-2022 take 120 mg by mouth once daily Propranolol Discontinu ed 120 MG PO DAILY April 21, 2021 12:00am April 21, 2022 12:27pm Start: 04-21-2021 take 20 mg by mouth twice george y Propranolol Active 20 MG PO TWICE A DAY April 21, 2021 12:00am Start: 04-17-2021 End: 11-08-2021 take 1 capsule by mouth once daily propranolol ER (INDERAL LA) 60 mg 24 hr capsule Take 1 capsule by mouth once daily. 90 capsule 3 04/17/2021 11/08/2021 Discontinued Comment on above: Take 1 capsule by [facility] once daily. sertraline 50 mg oral tablet (20 sources) Serotonin Reuptake Inhibitor Start: 11-20-2023 take 50 mg by mouth twice daily Sertraline Active 50 MG PO TWICE A DAY 180 November 20, 2023 9:59am Start: 08-22-2015 End: 03-30-2022 take 50 mg by mouth once daily Sertraline Active 50 MG PO DAILY August 22, 2015 1:00am Start: 08-22-2015 End: 11-20-2023 take 25 mg by mouth twice daily Sertraline Discontinue d 25 MG PO TWICE A DAY 180 May 21, 2023 9:53am November 20, 2023 10:00am take [address] [facility] twice daily sertraline (ZOLOFT) 25 mg tablet Take 25 mg by mouth twice daily. 0 Active Comment on above: Take 50 mg by mouth once daily. Take 25 mg by mouth twice daily. 24 hr tolterodine tartrate 4 mg extended release oral capsule (20 sources) Cholinergic Muscarinic Antagonist Start: take 1 capsule by mouth every twenty-four hours Tolterodine (Detrol La) 4 mg Capsule,Extended Release 24hr Active 4 MG PO Q24H April 02, 2022 11:00pm Start: 04-27-2021 End: 05-24-2022 take 1 capsule by mouth once daily tolterodine ER (DETROL LA) 4 mg 24 hr capsule Indications: Urge incontinence Take 1 capsule by mouth once daily. 90 capsule 4 04/27/2021 05/24/2022 Discontinued (Course of therapy completed) Comment on above: Take 1 capsule by [facility] once daily. Vitamin B Complex (1 source) Start: 08-22-2015 Vitamin B Comp jared Active 1 EACH PO DAILY August 22, 2015 1:00am Completed/Discontinued Medications Medication Drug Class(es) Dates Sig (Normalized) Sig (Original) acetaminophen 325 mg / oxyCODONE hydrochloride 5 mg oral tablet (10 sources) Opioid Agonist Start: 10-04-2022 End: 11-15-2022 take 1 tablet by mouth every eight hours Oxycodone-Acetamin ophen (Percocet) 5-325 mg tablet Discontinued 1 TABLET PO Q8H 9 3 October 25, 2022 November 15, 2022 7:36am aspirin 81 mg chewable tablet (20 sources) Platelet Aggregation Inhibitor, Nonsteroidal Anti-inflammatory Drug Start: 04-04-2022 take 1 tablet by mouth once daily aspirin 81 mg chewable tablet 1 tablet by ORAL/FEEDING TUBE route once daily. 0 04/04/2022 Active Start: 04-03-2022 take 81 mg by mouth once daily Aspirin Active 81 MG PO DAILY April 03, 2022 12:00am Comment on above: 1 tablet by ORAL/FEE DING TUBE route once daily. cephalexin 500 mg oral capsule (15 sources) Cephalosporin Antibacterial Start: 3 End: take 500 mg by mouth every twelve hours Cephalexin Discontinued 500 MG PO EVERY 12 HOURS 6 3 October 25, 2022 1:00am November 15, 2022 7:35am Start: 01-15-2022 End: 03-30-2022 take 1 capsule by mouth twice daily cephALEXin (KEFLEX) 500 mg capsule Indications: Dysuria , Acute cystitis without hematuria Take 1 capsule by mouth twice daily. 14 capsule 0 01/15/2022 03/30/2022 Discontinued Comment on above: Take 1 capsule by [facility] twice daily. clopidogrel 75 mg oral tablet (20 sources) P2Y12 Platelet Inhibitor Start: 04-03-20 End: 08-01-20 take 75 mg by mouth once daily Clopidogrel Discontinued 75 MG PO DAILY May 16, 2022 1:05pm August 01, 2022 12:43pm Comment on above: 1 tablet by ORAL/FEE DING TUBE route once daily for 86 doses. colestipol hydrochloride 1000 mg oral tablet (15 sources) Bile Acid Sequestrant Start: 03-25-20 End: 01-19-20 take 1 tablet by mouth twice daily colestipol (COLESTID) 1 gram tablet Take 1 tablet by mouth twice daily. 180 tablet 1 03/25/2021 01/18/2022 Discontinued Comment on above: Take 1 tablet by dav twice daily. docusate sodium 100 mg oral capsule (18 sources) Start: 03-27-20 End: 05-24-20 take 1 capsule by mouth every twelve hours as needed docusate sodium (COLACE) 100 mg capsule Take 1 capsule by mouth twice daily as needed for Constipation. 60 capsule 03/27/2018 05/24/2022 Discontinued (Course of therapy completed) Comment on above: Take 1 capsule by mo [facility] twice daily as needed for Constipation. esomeprazole 20 mg delayed release oral capsule (14 sources) Proton Pump Inhibitor Start: 02-11-20 End: 04-03-20 take 1 capsule by mouth once daily, then take 6 capsules by mouth in the morning esomeprazole (NEXIUM 24HR) 20 mg capsule Take 1 capsule by mouth DAILY (6 AM). 02/11/2020 04/03/2022 Discontinued Comment on above: Take 1 capsule by [facility] DAILY (6 AM). famotidine 40 mg oral tablet (20 sources) Histamine-2 Receptor Antagonist Start: 04-03-20 End: 04-21-20 take 40 mg by mouth once daily Famotidine Discontinued 40 MG PO DAILY April 03, 2022 12:00am April 21, 2022 12:29pm Comment on above: Take 1 tablet by dav once daily. fexofenadine (18 sources) Histamine-1 Receptor Antagonist End: 05-24-20 take 1 tablet by mouth once daily fexofenadine HCl (JOVAN ORAL) Take 1 tablet by mouth once daily. 05/24/2022 Discontinued (Course of therapy completed) End: 05-24-2022 take 1 tablet by mouth once daily fexofenadine HCl (JOVAN ORAL) Take 1 tablet by mouth once daily. 0 05/24/2022 Discontinued (Course of therapy completed) take 1 tablet by dav th once daily fexofenadine HCl (JOVAN ORAL) Take 1 tablet by mouth once daily. 0 Active take 1 tablet by dav th once daily fexofenadine HCl (JOVAN ORAL) Take 1 tablet by mouth once daily. 0 Suspended fexofenadine HCl (JOVAN ORAL) Take by mouth. 0 Active Comment on above: Take by mouth. Take [address] [facility] once daily. fluticasone propionate 0.05 mg/actuat metered dose nasal spray (20 sources) Corticosteroid Start: 2 End: 3 take 1 spray(s) nasal route once daily Fluticasone Propionate Discontinued 2 SPRAY INTRANASAL DAILY April 03, 2022 12:00am November 15, 2022 7:35am administer into each nostril Start: 08-09-2019 take 2 spray(s) by [facility] once daily fluticasone (FLONASE) 50 mcg/actuation nasal spray Use 2 Sprays in each nostril once daily. Rinse mouth after use. 1 Bottle 08/09/2019 Active Comment on above: Use 2 Sprays in each nostril once daily. Rinse mouth after use. gabapentin 300 mg oral capsule (20 sources) Anti-epileptic Agent Start: 12-04-2022 End: 05-21-2023 take 300 mg by mouth four times daily Gabapentin Discontinued 300 MG PO 4 TIMES DAILY May 04, 2023 11:39am May 07, 2023 9:33am Start: 12-04-2022 End: 12-04-2022 take 400 mg by mouth four times daily Gabapentin Discontinued 400 MG PO 4 TIMES DAILY December 04, 2022 9:04am December 04, 2022 11:26am Start: 11-15-2022 End: 12-04-2022 take 300 mg by mouth four times daily Gabapentin Discontinued 300 MG PO 4 TIMES DAILY November 15, 2022 7:54am December 04, 2022 9:05am Start: 04-21-2022 End: 11-15-2022 take 400 mg by mouth four times daily Gabapentin Discontinued 400 MG PO 4 TIMES DAILY November 12, 2022 1:31pm November 15, 2022 7:54am Start: 11-09-2021 End: 06-26-2022 take 300 mg by mouth three times daily Gabapentin Discontinued 300 MG PO THREE TIMES A DAY April 03, 2022 12:00am April 21, 2022 12:24pm Comment on above: Take 1 capsule by [facility] three times daily for 90 days. nitrofurantoin, macrocrystals 25 mg / nitrofurantoin, monohydrate 75 mg oral capsule (4 sources) Nitrofuran Antibacterial Start: End: take 1 capsule by mouth every twelve hours at mealtime Nitrofurantoin Monohyd/M-Cryst (Macrobid) 100 mg capsule Discontinued 100 MG PO Q12H 10 5 May 23, 2023 12:00am May 28, 2023 12:05am must administer with a meal/food omeprazole 20 mg delayed release oral tablet (5 sources) Proton Pump Inhibitor Start: End: Omeprazole Magnesium (Prilosec Otc) 20 mg Tablet,Delayed Release (Dr/Ec) Discontinued 40 MG PO DAILY October 01, 2022 1:00am June 17, 2023 3:04pm pantoprazole 40 mg delayed release oral tablet (20 sources) Proton Pump Inhibitor Start: End: take 40 mg by mouth twice daily at mealtime Pantoprazole Discontinued 40 MG PO TWICE DAILY WITH MEALS May 16, 2022 1:06pm May 17, 2022 4:52pm Comment on above: Take 40 mg by mouth twice daily. predniSONE 20 mg oral tablet (1 source) Start: End: predniSONE (DELTASONE) 20 mg tablet 2 pills daily x 3 days, then 1 pill daily x 4 days, then 1/2 pill daily x 4 days. 12 tablet 07/09/2021 09/25/2021 Discontinued (Course of therapy completed) psyllium 3400 mg powder for oral suspension (16 sources) Start: End: Psyllium Husk (Metamucil) 3.4 gram/5.4 gram powder Discontinued 1 tbsp PO NEEDED October 01, 2022 12:38pm June 17, 2023 3:05pm mix into at least 8 oz of water or juice before administering Start: 05-17-2022 End: 05-24-2022 METAMUCIL 3.4 gram/5.4 gram powd DISSOLVE 1 TABLESPOON OF POWDER INTO AT LEAST 8 OUNCES OF WATER OR JUICE AND DRINK TWICE A DAY 0 05/17/2022 05/24/2022 Discontinued (Course of therapy completed) Start: 05-17-2022 End: 10-01-2022 Psyllium Husk (Metamucil) 3. 4 gram/5.4 gram powder Discontinued 1 tbsp PO TWICE A DAY 660 May 17, 2022 12:00am October 01, 2022 12:38pm mix into at least 8 oz of water or juice before administering Comment on above: DISSOLVE 1 TABLESPOO N OF POWDER INTO AT LEAST 8 OUNCES OF WATER OR JUICE AND DRINK TWICE A DAY RABEprazole sodium 20 mg delayed release oral tablet (20 sources) Proton Pump Inhibitor Start: 2 End: 2 take 20 mg by mouth once daily Rabeprazole Discontinued 20 MG PO DAILY 60 August 14, 2022 10:26am August 21, 2022 10:27am Comment on above: Take 20 mg by mouth once daily. tiZANidine 4 mg oral tablet (1 source) Central alpha-2 Adrenergic Agonist Start: 1 End: 2 take 1 tablet by mouth every eight hours as needed tiZANidine (ZANAFLEX) 4 mg tablet Take 1 tablet by mouth every 8 hours as needed (muscle spasms). 20 tablet 07/09/2021 09/25/2021 Discontinued (Course of therapy completed) traMADol hydrochloride 50 mg oral tablet (1 source) Opioid Agonist Start: 1 End: 2 take 1 tablet by mouth every six hours as needed for pain traMADol (ULTRAM) 50 mg tablet Indications: Acute pain of left shoulder Take 1 tablet by mouth every 6 hours as needed for pain for up to 7 days. 28 tablet 08/31/2021 09/07/2021 ubidecarenone 200 mg oral capsule (20 sources) Start: 2 End: 4 Coenzyme Q10 (Co Q-10) 200 mg Capsule Discontinued 200 MG PO DAILY April 03, 2022 12:00am November 20, 2023 9:37am coenzyme Q10 (CO ENZYME Q-10) 100 mg cap capsule Take 200 mg by mouth once daily. Active Comment on above: Take 200 mg by mouth once daily. Problems Active Problems Problem Classification Problem Date Documented Da te Episodic/Chronic Acute cerebrovascular disease (20 sources) Cerebrovascular accident; Translations: [Cerebral infarction, unspecified] Onset: 2 Chronic Administrative/social admission (5 sources) Persons encountering health services in other specified circumstances; Translations: [Other reasons for seeking consultation] Episodic Allergic reactions (10 sources) H/O: non-drug allergy; Translations: [Allergy status to unspecified drugs, medicaments and biological substances status] 05-03-2022 Episodic Anxiety disorders (20 sources) Panic disorder without agoraphobia; Translations: [Panic disorder [episodic paroxysmal anxiety]] Onset: 8 03-27-2018 Chronic Deficiency and other anemia (1 source) Normocytic normochromic anemia; Translations: [Anemia, unspecified] Episodic Deficiency and other anemia (1 source) Anemia, unspecified; Translations: [Anemia, unspecified] Episodic Diabetes mellitus without complication (10 sources) Type 2 diabetes mellitus without complication; Translations: [Type 2 diabetes mellitus without complications] Onset: 2 Chronic Diabetes mellitus without complication (20 sources) Impaired fasting glycemia; Translations: [Impaired fasting glucose] Onset: 9 08-08-2011 Episodic Disorders of lipid metabolism (20 sources) Hyperlipidemia; Translations: [Hyperlipidemia, unspecified] Onset: 1 03-27-2018 Chronic Esophageal disorders (20 sources) Gastroesophageal reflux disease; Translations: [Gastro-esophageal reflux disease without esophagitis] Onset: 7 06-24-2017 Chronic Essential hypertension (20 sources) Essential hypertension; Translations: [Essential (primary) hypertension] Onset: 2 Chronic Gastrointestinal hemorrhage (12 sources) Gastrointestinal hemorrhage; Translations: [Hemorrhage of anus and rectum] 05-03-2022 Episodic Genitourinary symptoms and ill-defined conditions (20 sources) Urge incontinence of urine; Translations: [Urge incontinence] Onset: 8 11-14-2017 Chronic Malaise and fatigue (17 sources) Asthenia; Translations: [Other malaise] Episodic Menopausal disorders (20 sources) Atrophic vaginitis; Translations: [Postmenopausal atrophic vaginitis] Onset: 0 08-24-2020 Chronic Mood disorders (20 sources) Bipolar I disorder; Translations: [Bipolar disorder, unspecified] Onset: 5 Resolved: 8 08-28-2021 Chronic Occlusion or stenosis of precerebral arteries (20 sources) Bilateral stenosis of carotid arteries; Translations: [Occlusion and stenosis of bilateral carotid arteries] Onset: 7 04-03-2019 Chronic Osteoarthritis (1 source) Unilateral primary osteoarthritis, right hip; Translations: [Unilateral primary osteoarthritis, right hip] Onset: 5 Chronic Other and ill-defined cerebrovascular disease (11 sources) Cerebrovascular disease; Translations: [Cerebrovascular disease, unspecified] 2022 Chronic Other and ill-defined cerebrovascular disease (1 source) Cerebrovascular disease, unspecified; Translations: [Unspecified cerebrovascular disease] Chronic Other circulatory disease (1 source) Elevated blood-pressure reading without diagnosis of hypertension; Translations: [Elevated blood-pressure reading, without diagnosis of hypertension] Episodic Other circulatory disease (1 source) Other specified symptoms and signs involving the circulatory and respiratory systems; Translations: [Other specified symptoms and signs involving the circulatory and respiratory systems] Onset: 5 Episodic Other connective tissue disease (11 sources) Chronic central neuropathic pain; Translations: [Neuralgia and neuritis, unspecified] 04-05-2022 Episodic Other connective tissue disease (11 sources) Radicular pain; Translations: [Neuralgia and neuritis, unspecified] 2022 Episodic Other connective tissue disease (14 sources) Neuralgia and neuritis, unspecified; Translations: [Neuralgia, neuritis, and radiculitis, unspecified] Episodic Other connective tissue disease (10 sources) H/O: arthritis; Translations: [Personal history of other diseases of the musculoskeletal system and connective tissue] 05-03-2022 Episodic Other connective tissue disease (1 source) Pain in right leg; Translations: [Pain in right leg] Onset: 5 Episodic Other diseases of bladder and urethra (20 sources) Overactive bladder; Translations: [Other neuromuscular dysfunction of bladder] Onset: 9 08-08-2011 Chronic Other diseases of bladder and urethra (18 sources) Overactive bladder; Translations: [Hypertonicity of bladder] Onset: 5 Chronic Other gastrointestinal disorders (7 sources) Constipation, unspecified; Translations: [Full incontinence of feces] Onset: 8 Episodic Other gastrointestinal disorders (20 sources) Dysphagia; Translations: [Dysphagia, unspecified] Onset: 2 03-30-2022 Episodic Other liver diseases (11 sources) Enzyme level - finding; Translations: [Abnormal levels of other serum enzymes] 04-04-2022 Episodic Other liver diseases (5 sources) Abnormal levels of other serum enzymes; Translations: [Nonspecific elevation of levels of transaminase or lactic acid dehydrogenase [LDH]] Episodic Other nervous system disorders (20 sources) Cerebral cyst; Translations: [Cerebral cysts] Onset: 9 03-25-2021 Chronic Other nervous system disorders (1 source) Other chronic pain; Translations: [Other chronic pain] Onset: 5 Chronic Other nervous system disorders (1 source) Other acute postprocedural pain; Translations: [Other acute postprocedural pain] Onset: 8 Episodic Other nervous system disorders (3 sources) Paresthesia of hand ; Translations: [Anesthesia of skin] Episodic Other nervous system disorders (12 sources) Paresthesia of right lower limb; Translations: [Paresthesia of skin] 04-06-2022 Episodic Other nervous system disorders (12 sources) Paresthesia of right upper limb; Translations: [Paresthesia of skin] 04-06-2022 Episodic Other nervous system disorders (1 source) Paresthesia of left upper limb; Translations: [Paresthesia of skin] Episodic Other nervous system disorders (10 sources) H/O: migraine; Translations: [Personal history of other diseases of the nervous system and sense organs] 05-03-2022 Episodic Other nervous system disorders (1 source) Numbness; Translations: [Anesthesia of skin] Episodic Other nervous system disorders (2 sources) Anesthesia of skin; Translations: [Anesthesia of skin] Onset: 5 Episodic Other nervous system disorders (2 sources) Paresthesia of skin; Translations: [Paresthesia of skin] Onset: 5 Episodic Other non-traumatic joint disorders (1 source) Pain in unspecified hip; Translations: [Pain in joint, pelvic region and thigh] 11-20-2023 Episodic Other non-traumatic joint disorders (1 source) Pain in left shoulder; Translations: [Pain in joint, shoulder region] 08-31-2021 Episodic Other non-traumatic joint disorders (1 source) Pain in right hip; Translations: [Pain in right hip] Onset: 5 Episodic Other nutritional; endocrine; and metabolic disorders (20 sources) Obese class I; Translations: [Obesity, unspecified] Onset: 2 04-03-2022 Chronic Other nutritional; endocrine; and metabolic disorders (1 source) Obesity, unspecified; Translations: [Obesity, unspecified] Chronic Other upper respiratory infections (12 sources) Sphenoidal sinusitis; Translations: [Chronic sphenoidal sinusitis] 04-14-2016 Chronic Paralysis (20 sources) Right hemiparesis; Translations: [Hemiplegia, unspecified affecting right dominant side] Onset: 2 03-31-2022 Chronic Prolapse of female genital organs (20 sources) Disorder of rectum; Translations: [Rectocele] Onset: 8 01-01-2018 Chronic Residual codes; unclassified (20 sources) Obstructive sleep apnea syndrome; Translations: [Obstructive sleep apnea (adult) (pediatric)] Onset: 8 08-03-2020 Chronic Residual codes; unclassified (20 sources) Obstructive sleep apnea (adult) (pediatric); Translations: [Obstructive sleep apnea (adult)(pediatric)] Onset: 4 Chronic Residual codes; unclassified (12 sources) Family history of malignant neoplasm of digestive organs; Translations: [Family history of malignant neoplasm of gastrointestinal tract] Episodic Screening and history of mental health and substance abuse codes (10 sources) History of clinical finding in subject; Translations: [Personal history of other mental and behavioral disorders] 05-03-2022 Episodic Spondylosis; intervertebral disc disorders; other back problems (2 sources) Degeneration of cervical intervertebral disc; Translations: [Other cervical disc degeneration, unspecified cervical region] Chronic Spondylosis; intervertebral disc disorders; other back problems (20 sources) Neck pain; Translations: [Cervicalgia] Onset: 1 07-13-2021 Episodic Systemic lupus erythematosus and connective tissue disorders (20 sources) Mucous membrane dryness; Translations: [Sicca syndrome, unspecified] Onset: 7 06-02-2018 Chronic Unclassified (1 source) Unknown / UNK(Unknown) Onset: 8 Past or Other Problems Problem Classification Problem Date Documented Da te Episodic/Chronic Abdominal pain (4 sources) Lower abdominal pain; Translations: [Lower abdominal pain, unspecified] Onset: 06-24-2017 Resolved: 12-06-2017 12-06-2017 Episodic Cardiac dysrhythmias (20 sources) Tachycardia; Translations: [Tachycardia, unspecified] Onset: 06-28-2017 06-28-2017 Episodic Conditions associated with dizziness or vertigo (20 sources) Vertigo; Translations: [Dizziness and giddiness] Onset: 06-17-2019 06-17-2019 Episodic Genitourinary symptoms and ill-defined conditions (20 sources) Increased frequency of urination; Translations: [Frequency of micturition] Onset: 03-29-2009 08-08-2011 Episodic Headache; including migraine (14 sources) Headache; Translations: [Headache, unspecified headache type] Resolved: 12-06-2017 Episodic Immunizations and screening for infectious disease (20 sources) Finding related to response to skin test; Translations: [Nonspecific reaction to tuberculin skin test without active tuberculosis] Onset: 12-13-2007 08-08-2011 Episodic Nonspecific chest pain (2 sources) Chest pain, unspecified; Translations: [Chest pain, unspecified] Onset: 05-25-2024 Episodic Other and unspecified benign neoplasm (20 sources) Gastric polyposis; Translations: [Polyp of stomach and duodenum] Onset: 12-06-2017 12-06-2017 Episodic Other connective tissue disease (1 source) Other specified soft tissue disorders; Translations: [Other specified soft tissue disorders] Onset: 05-07-2024 Episodic Other diseases of bladder and urethra (1 source) Detrusor and sphincter dyssynergia; Translations: [Muscular disorders of urethra] Resolved: 12-13-2007 03-12-2024 Chronic Other gastrointestinal disorders (20 sources) Constipation; Translations: [Constipation, unspecified] Onset: 01-01-2018 01-01-2018 Episodic Other gastrointestinal disorders (20 sources) Incontinence of feces; Translations: [Full incontinence of feces] Onset: 01-01-2018 01-01-2018 Episodic Other gastrointestinal disorders (6 sources) Dysphagia, unspecified; Translations: [Dysphagia, unspecified] Onset: 04-09-2024 Episodic Other screening for suspected conditions (not mental disorders or infectious disease) (20 sources) Patient encounter status; Translations: [Encounter for other screening for malignant neoplasm of breast] Onset: 10-23-2024 Episodic Residual codes; unclassified (3 sources) Family history of cancer of colon; Translations: [Family history of malignant neoplasm of digestive organs] Onset: 02-26-2014 Resolved: 12-24-2014 06-18-2023 Episodic Residual codes; unclassified (1 source) H/O: risk factor; Translations: [Other specified personal risk factors, not elsewhere classified] Resolved: 12-13-2007 03-12-2024 Episodic Sprains and strains (20 sources) Shoulder strain; Translations: [Strain of unspecified muscle, fascia and tendon at shoulder and upper arm level, left arm, initial encounter] Onset: 07-13-2021 07-13-2021 Episodic Unclassified (1 source) Feeling of incomplete bladder emptying Onset: 03-31-2018 Results Test Name Value Interpretation Reference Range Facility Extremity Lower without Cont raon 02-23-2025 Extremity Lower without Contra [facility] [address], [place] [id number] Extremity Lower without Contra MR#: [id number] Acct: [id number] Name: SHIRA SHEN Rep #: [id number] : 1950 F 74 From: Graham Covarrubias MD PCP: Dr. Nimisha Olvera MD Status: REG CLI Study: Extremity Lower without Contra Date of Exam: 0 02/23/25 Exam# [id number] Ordering Dr: Dain Blanchard DO PROCEDURE: EXTREMITY LOWER WITHOUT CONTRA 02/23/2025 REASON FOR EXAM: TEMPLATING FOR RIGHT FRANCI TECHNIQUE: EXTREMITY LOWER WITHOUT CONTRA Coronal and Sagittal reconstruction series were provided. CONTRAST: None One or more dose reduction techniques were used (e.g., Automated exposure control, adjustment of the mA and/or kV according to patient size, use of iterative reconstruction technique). RADIATION DOSE SUMMARY: DLP: 803.21 mGycm COMPARISON: None FINDINGS: Bones: There is no fracture or dislocation. Joints: There is severe osteoarthritis of the right hip with joint space narrowing, subcortical cyst formation, and marginal osteophytes. There is no visible effusion. Mineralization is normal. Degenerative disc disease is visible at L4-5. The SI joints are aligned. The sacral foramina appear intact. The pelvic bones appear intact. Soft Tissues: There is a stimulator in the right posterior soft tissues of the wire extending to the anterior soft tissues at the left aspect of the sacrum. There is visible atherosclerosis. There is no adenopathy or soft tissue mass. CT/Extremity Lower without Contra IMPRESSION: There is severe osteoarthritis of the right hip with joint space narrowing, subcortical cyst formation, and marginal osteophytes. Reading Location: [facility] CC: Dr. Nimisha Olvera MD; Dr. Dain Blanchard DO Bakeshop Cleaner: Signed Normal [facility] Office Visit Reporton 2024 Office Visit Report [facility] [address] [place] [address] OFFICE VISIT Date of Service: 02/23/25 MR#: [id number] Acct: [id number] Patient: SHIRA SHEN Rep #: [id number] : 1950 Provider: ARIEL NURSE Age/Sex: 74/F Location: [facility] [place] Status: Signed Intake Vital Signs 02/11/25 12:52 02/23/25 15:00 Height 5 ft 4 in Weight: 193 lb BMI 33.1 BP 148/76 H 132/82 H Blood Pressure Location Lt brachial Lt brachial Position Sitting Sitting Respiration 18 Pulse 98 Pulse Source Monitor Temp 97.8 F Temp Source Temporal Pulse Oximetry (%) 96 Oxygen Delivery Method room air Intake Visit Reasons: BP CHECK Chief Complaint: acute - surgery clearance Allergies codeine Allergy (Verified 02/11/25 12:53) Other Penicillins Allergy (Verified 02/11/25 12:53) Itching Oibhutq-WLC-WlW Reductase Inhibitor (Tzxuddn-Xdv-Eno Reductase Inhibitor) Allergy (Verified 02/11/25 12:53) Unknown Sulfa (Sulfonamide Antibiotics) Allergy (Verified 02/11/25 12:53) Itching Have you fallen in the past year?: No Assessment and Plan Assessment and Plan (1) Essential hypertension: Status: Acute Clinical Quality Measures Falls Risk Screening/Assistive Devices Have you fallen in the past year?: No 02/23/25 1516 Date Nimisha Olvera MD Cosigner Signature: Date (if applicable) CC: Normal [facility] Fructosamineon 02-17-2025 FRUCTOSAMINE 261 umol/L Normal 0-285 [facility] Comment on above: Result Comment: Publ ished reference interval for apparently healthy subjects between age 20 and 60 is 205 - 285 umol/L and in a poorly controlled diabetic population is 228 - 563 umol/L with a mean of 396 umol/L. Performed at: [facility] [id number] Risk Professional: Carlyle Trujillo PhD, Phone: [phone] Performed By: #### L 300.4310, L100.0100, L300.3900, L3400.0100, M100.651, BTSPAT, L500.2500, L501.9985 #### [facility] Laboratory [address] [place], [address] MR/Bel 02-17-2025 MR/RAFAT [facility] Medical Records Department [address] [place] [address] PAT - Anesthesia 02/17/25 1121 MR#: [id number] Acct: [id number] Name: SHIRA SHEN Rep #: [id number] : 1950 74 From: Martin Walker MD PCP: Dr. Nimisha Olvera MD Status:PRE IN Y Race: C Location: [facility] Pre-Assessment Diagnosis/Proposed Procedure Planned Operative Procedure(s): RIGHT TOTAL HIP ARTHROPLASTY Anesthesia History Anesthesia History - machinery erector: Anesthesia History - machinery erector Hx Hospitalization No 02/11/25 09:23 Any Problems With Anesthesia No 02/11/25 09:23 Cholinesterase deficiency No 02/11/25 09:23 You/Your Family Experience No 02/11/25 09:23 fever (hyperthermia) with Relationship Recent Exposure to Contagious No 05/21/24 07:08 Disease Does patient have nerve No 02/11/25 09:23 stimulator Patient instructed to have device shut off --Does patient have Pacemaker or ICD? When Was Last Pacemaker Check QUESTION #4 FULL TEXT: You/Your Family Experience fever (hyperthermia) with Anesthesia Last Oral Intake Last Oral intake: Last Oral Intake NPO since Meds taken in AM with sips of water? Meds patient instructed to take am of surgery PONV PONV - machinery erector: PONV - machinery erector Female Yes 02/11/25 09:23 HX of Motion Sickness No 02/11/25 09:23 HX of N/V After Surgery No 02/11/25 09:23 Non-Smoker Yes 02/11/25 09:23 Duration of Surgery greater Yes 02/11/25 09:23 than 60 minutes Number of Risk Factors 3 02/11/25 09:23 PONV Score Moderate Risk 02/11/25 09:23 Height Weight Height Weight: Anesthesia: Height Weight Height 5 ft 4 in 01/20/25 11:14 Respiratory Assessment Respiratory Assessment - machinery erector: Respiratory Tract Infection Hx - machinery erector Hx Respiratory Tract Infection No 02/11/25 09:23 STOP Sleep Apnea STOP Sleep Apnea - machinery erector: STOP Sleep Apnea - machinery erector Hx Hypertension Yes: CONTROLLED WITH MEDS 02/11/25 09:23 Hx Sleep Apnea Yes 02/11/25 09:23 CPAP Yes: NONCOMPLIANT 02/11/25 09:23 BIPAP No 02/11/25 09:23 Do you snore loudly (louder than talking or can be heard Do you often feel tired/ fatigued/ sleepy during daytime? Has anyone observed you stop breathing during sleep? STOP Results Positive 02/11/25 09:23 QUESTION #5 FULL TEXT : Do you snore loudly (louder than talking or can be heard through closed doors)? Tobacco Use History Tobacco Use History - machinery erector: Tobacco Use History - machinery erector Tobacco Use Non-smoker 04/22/22 10:12 Smoking Status Never smoker 02/11/25 09:23 Hx Tobacco Use No 02/11/25 09:23 Years Smoking Packs Smoked per Day Smoking Cessation Date was within the last 15 years Hx Smoking Cessation Date Hx Smoking Cessation Counseling Hematologic Medial History Hematologic Hx - machinery erector: Hematologic Medical Hx - settlement worker Hx of Blood Transfusion No 02/11/25 09:23 Hx of Transfusion in last 3 No 02/11/25 09:23 Months Date of Last Transfusion (if within last 3 months) Ever experience any problems No 02/11/25 09:23 with transfusion(s)? Specify any problems Hx of Preganancy in last 3 No 02/11/25 09:23 Months Nurse Filling Out Transfusion DSCHRIBER 02/11/25 09:23 Questions: Date: 02/11/25 02/11/25 09:23 Time: :02/11/25 09:23 Patient unable to answer at this time (ie. confused, unrespo /Reproduction History /Reproductive History - machinery erector: /Reproductive Hx- machinery erector Hx Now No 02/11/25 09:23 Gestational Age (in weeks): EDC: Hx Hx Para Hx Section SAB No 02/11/25 09:23 [facility] Medical History Post-menopausal Walker as ambulation aid Anemia Dietary restriction Constipation Asthma History of pain when walking History of edema Family history of colon cancer in mother Hx of bladder problems Wears glasses Bipolar disorder Arthritis Bladder disease High cholesterol Gastric reflux Non-smoker CPAP (continuous positive airway pressure) dependence History of echocardiogram History of stress test Stroke/cerebrovascular accident Hx of migraines Radicular pain in left arm Obesity (BMI 30.0-34.9) Depression Bipolar 1 disorder Hypertension Home Medications ???Medication ???Instructions ???Recorded ???Last Taken ???Type multivitamin (Daily Multiple 1 ea PO DAILY supplement 08/22/15 05/20/24 History tablet) aspirin 81 mg tablet 81 mg PO DAILY anti-platelet 04/0305/17/24 History handi (more content not included)... Normal [facility] MRSA/SAID NASAL SCREENon MRSA+SAID SCRN Reason for Exam: Fany lars MRSA MRSA Negative S. AUREUS S. aureus Negative Normal [facility] Comment on above: Performed By: #### L 300.4310, L100.0100, L300.3900, L3400.0100, M100.651, BTSPAT, L500.2500, L501.9985 ####[facility] [id number] [place], [address] 12 Lead EKGon 02-16-2025 12 Lead EKG [facility] Cardi[facility] [address] [place] [address] 12 Lead EKG 02/16/25 0840 MR#: [id number] Acct: [id number] Name: SHIRA SHEN Rep #: [id number] : 1950 74 From: Darryl Villeda MD Attending Dr: Dr. Dain Blanchard DO Status: ID E IN Ordering Dr: Dain Blanchard DO Date: 02/16/25 Location: [facility] Sex: F C Admitted: Test Reason : PRE OP Blood Pressure : */* mmHG Vent. Rate : 74 BPM Atrial Rate : 74 BPM P-R Int : 174 ms QRS Dur : 128 ms QT Int : 430 ms P-R-T Axes : 34 -18 8 degrees QTcB Int : 477 ms Normal sinus rhythm Right bundle branch block Left ventricular hypertrophy with QRS widening Abnormal ECG Confirmed by VALERIE CARRANZA, DARRYL ([id number]), movie editor ЕЛЕНА TAPIA ([id number]) on 02/17/2025 7:04:32 AM Referred By: Dain Blanchard Confirmed By: DARRYL VILLEDA MD 02/17/25 0704 Date Darryl Villeda MD CC: Dr. Nimisha Olvera MD; Dr. Dain Blanchard DO Signed Normal [facility] Basic Metabolic Profile (BMP )on 02-16-2025 BUN/CRE 19.7 RATIO Normal 10-20 [facility] Comment on above: Performed By: #### L 300.4310, L100.0100, L300.3900, L3400.0100, M100.651, BTSPAT, L500.2500, L501.9985 #### [facility] Laboratory [address] [place], [address] Calcium [Mass/Vol] 10.4 mg/dL Normal 7.6-11.0 [facility] Comment on above: Performed By: #### L 300.4310, L100.0100, L300.3900, L3400.0100, M100.651, BTSPAT, L500.2500, L501.9985 #### [facility] Laboratory [address] [place], [address] Chloride [Moles/Vol] 100 mmol/L Normal 98-108 [facility] Comment on above: Performed By: #### L 300.4310, L100.0100, L300.3900, L3400.0100, M100.651, BTSPAT, L500.2500, L501.9985 #### [facility] Laboratory [address] [place], [address] CO2 [Moles/Vol] 25.2 mmol/L Normal 21.0-32.0 [facility] Comment on above: Performed By: #### L 300.4310, L100.0100, L300.3900, L3400.0100, M100.651, BTSPAT, L500.2500, L501.9985 #### [facility] Laboratory [address] [place], [address] Creatinine [Mass/Vol] 0.83 mg/dL Normal 0.70-1.20 [facility] Comment on above: Performed By: #### L 300.4310, L100.0100, L300.3900, L3400.0100, M100.651, BTSPAT, L500.2500, L501.9985 #### [facility] Laboratory [address] [place], [address] GAP 13 Normal 5-15 [facility] Comment on above: Performed By: #### L 300.4310, L100.0100, L300.3900, L3400.0100, M100.651, BTSPAT, L500.2500, L501.9985 #### [facility] Laboratory [address] [place], [address] GFR/1.73 sq M.predicted among non-blacks MDRD (S/P/Bld) [Vol rate/Area] 75 mL/min/{1.73_m2} Normal >60 [facility] Comment on above: Result Comment: mL/m in/1.73m2 CKD-EPI Creatinine Equation (2020) Performed By: #### L 300.4310, L100.0100, L300.3900, L3400.0100, M100.651, BTSPAT, L500.2500, L501.9985 #### [facility] Laboratory [address] [place], [address] Glucose [Mass/Vol] 140 mg/dL High 70-99 [facility] Comment on above: Performed By: #### L 300.4310, L100.0100, L300.3900, L3400.0100, M100.651, BTSPAT, L500.2500, L501.9985 #### [facility] Laboratory [address] [place], [address] Potassium [Moles/Vol] 4.4 mmol/L Normal 3.3-5.1 [facility] Comment on above: Performed By: #### L 300.4310, L100.0100, L300.3900, L3400.0100, M100.651, BTSPAT, L500.2500, L501.9985 #### [facility] Laboratory [address] [place], [address] Sodium [Moles/Vol] 138 mmol/L Normal 133-145 [facility] Comment on above: Performed By: #### L 300.4310, L100.0100, L300.3900, L3400.0100, M100.651, BTSPAT, L500.2500, L501.9985 #### [facility] Laboratory [address] [place], [address] Urea nitrogen [Mass/Vol] 16 mg/dL Normal 4-19 [facility] Comment on above: Performed By: #### L 300.4310, L100.0100, L300.3900, L3400.0100, M100.651, BTSPAT, L500.2500, L501.9985 #### [facility] Laboratory [address] [place], [address] CBC W/Diff, Automatedon 01-31 Absolute Lymph 2.28 X10 3/uL Normal 0.83-4.51 [facility] Comment on above: Performed By: #### L 300.4310, L100.0100, L300.3900, L3400.0100, M100.651, BTSPAT, L500.2500, L501.9985 #### [facility] Laboratory [address] [place], [address] Absolute Neut 2.8 X10 3/uL Normal 2.0-7.7 [facility] Comment on above: Performed By: #### L 300.4310, L100.0100, L300.3900, L3400.0100, M100.651, BTSPAT, L500.2500, L501.9985 #### [facility] Laboratory [address] [place], [address] Basophils/100 WBC (Bld) 0.7 % Normal 0-1 [facility] Comment on above: Performed By: #### L 300.4310, L100.0100, L300.3900, L3400.0100, M100.651, BTSPAT, L500.2500, L501.9985 #### [facility] Laboratory [address] [place], [address] Eosinophils/100 WBC (Bld) 3.4 % Normal 0-5 [facility] Comment on above: Performed By: #### L 300.4310, L100.0100, L300.3900, L3400.0100, M100.651, BTSPAT, L500.2500, L501.9985 #### [facility] Laboratory [address] [place], [address] Erythrocyte distribution width (RBC) [Ratio] 13.2 % Normal 11.6-14.6 [facility] Comment on above: Performed By: #### L 300.4310, L100.0100, L300.3900, L3400.0100, M100.651, BTSPAT, L500.2500, L501.9985 #### [facility] Laboratory [address] [place], [address] Hematocrit (Bld) [Volume fraction] 35.5 % Low 37-47 [facility] Comment on above: Performed By: #### L 300.4310, L100.0100, L300.3900, L3400.0100, M100.651, BTSPAT, L500.2500, L501.9985 #### [facility] Laboratory [address] [place], [address] Hemoglobin (Bld) [Mass/Vol] 11.7 g/dL Low 12.0-15.0 [facility] Comment on above: Performed By: #### L 300.4310, L100.0100, L300.3900, L3400.0100, M100.651, BTSPAT, L500.2500, L501.9985 #### [facility] Laboratory [address] [place], [address] IG% 0.200 Normal 0.0-0.9 [facility] Comment on above: Result Comment: IG% - Immature Granulocytes (promyelocytes, myelocytes and metamyelocytes) > 1% indicates that a LEFT SHIFT is Present. Performed By: #### L 300.4310, L100.0100, L300.3900, L3400.0100, M100.651, BTSPAT, L500.2500, L501.9985 #### [facility] Laboratory [address] [place], [address] Lymphocytes/100 WBC (Bld) 38.3 % Normal 19-41 [facility] Comment on above: Performed By: #### L 300.4310, L100.0100, L300.3900, L3400.0100, M100.651, BTSPAT, L500.2500, L501.9985 #### [facility] Laboratory [address] [place], [address] MCH (RBC) [Entitic mass] 28.9 pg Normal 27.0-32.0 [facility] Comment on above: Performed By: #### L 300.4310, L100.0100, L300.3900, L3400.0100, M100.651, BTSPAT, L500.2500, L501.9985 #### [facility] Laboratory [address] [place], [address] MCHC (RBC) [Mass/Vol] 33.0 g/dL Normal 32-36 [facility] Comment on above: Performed By: #### L 300.4310, L100.0100, L300.3900, L3400.0100, M100.651, BTSPAT, L500.2500, L501.9985 #### [facility] Laboratory [address] [place], [address] MCV (RBC) [Entitic vol] 87.7 fL Normal 81-99 [facility] Comment on above: Performed By: #### L 300.4310, L100.0100, L300.3900, L3400.0100, M100.651, BTSPAT, L500.2500, L501.9985 #### [facility] Laboratory [address] [place], [address] Monocytes/100 WBC (Bld) 10.4 % High 0-10 [facility] Comment on above: Performed By: #### L 300.4310, L100.0100, L300.3900, L3400.0100, M100.651, BTSPAT, L500.2500, L501.9985 #### [facility] Laboratory [address] [place], [address] Neutrophils/100 WBC (Bld) 47.0 % Normal 47-70 [facility] Comment on above: Performed By: #### L 300.4310, L100.0100, L300.3900, L3400.0100, M100.651, BTSPAT, L500.2500, L501.9985 #### [facility] Laboratory [address] [place], [address] Nucleated RBC (Bld) [#/Vol] 0 10*3/uL Normal 0-5 [facility] Comment on above: Performed By: #### L 300.4310, L100.0100, L300.3900, L3400.0100, M100.651, BTSPAT, L500.2500, L501.9985 #### [facility] Laboratory [address] [place], [address] Platelet mean volume (Bld) [Entitic vol] 11.2 fL Normal 6.2-12.0 [facility] Comment on above: Performed By: #### L 300.4310, L100.0100, L300.3900, L3400.0100, M100.651, BTSPAT, L500.2500, L501.9985 #### [facility] Laboratory [address] [place], [address] Platelets (Bld) [#/Vol] 186 10*3/uL Normal 150-450 [facility] Comment on above: Performed By: #### L 300.4310, L100.0100, L300.3900, L3400.0100, M100.651, BTSPAT, L500.2500, L501.9985 #### [facility] Laboratory [address] [place], [address] RBC (Bld) [#/Vol] 4.05 10*6/uL Low 4.2-5.4 [facility] Comment on above: Performed By: #### L 300.4310, L100.0100, L300.3900, L3400.0100, M100.651, BTSPAT, L500.2500, L501.9985 #### [facility] Laboratory [address] [place], [address] RDW SD 41.7 fl Normal 35.1-43.9 [facility] Comment on above: Performed By: #### L 300.4310, L100.0100, L300.3900, L3400.0100, M100.651, BTSPAT, L500.2500, L501.9985 #### [facility] Laboratory [address] [place], [address] WBC (Bld) [#/Vol] 6.0 10*3/uL Normal 4.4-11.0 [facility] Comment on above: Performed By: #### L 300.4310, L100.0100, L300.3900, L3400.0100, M100.651, BTSPAT, L500.2500, L501.9985 #### [facility] Laboratory [address] [place], [address] Hemoglobin A1con 02-16-2025 HbA1c (Bld) [Mass fraction] 7.1 % High <=5.6 [facility] Comment on above: Result Comment: Norm al < 5.7 % Prediabetic 5.7 - 6.4 % Diabetic >or= 6.5 % Please note range changes. Performed By: #### L 300.4310, L100.0100, L300.3900, L3400.0100, M100.651, BTSPAT, L500.2500, L501.9985 #### [facility] Laboratory [address] [place], [address] Magnesiumon 06-17-2025 Magnesium [Mass/Vol] 2.2 mg/dL Normal 1.5-2.2 [facility] Comment on above: Performed By: #### L 501.5200 ####[facility] [address] [place], [address] Partial Thromboplast Timeon 02-16-2025 aPTT Coag (Bld) [Time] 31.6 s Normal 24.1-36.2 [facility] Comment on above: Performed By: #### L 300.4310, L100.0100, L300.3900, L3400.0100, M100.651, BTSPAT, L500.2500, L501.9985 #### [facility] Laboratory [address] [place], [address] Prothrombin Time w/INRon INR Coag (PPP) [Relative time] 1.1 {INR} Normal [facility] Comment on above: Performed By: #### L 300.4310, L100.0100, L300.3900, L3400.0100, M100.651, BTSPAT, L500.2500, L501.9985 #### [facility] Laboratory [address] [place], [address] PT Coag (PPP) [Time] 14.9 s Normal 11.7-14.9 [facility] Comment on above: Performed By: #### L 300.4310, L100.0100, L300.3900, L3400.0100, M100.651, BTSPAT, L500.2500, L501.9985 #### [facility] Laboratory [address] [place], [address] Type AND Screen - PAT ONLYon 02-16-2025 Ab SCREEN GEL Negative Normal [facility] Comment on above: Order Comment: Surge ry Date: 03/02/25 Reason for Laboratory Test PREOP [id number] No N N S RIGHT THR Performed By: #### L 300.4310, L100.0100, L300.3900, L3400.0100, M100.651, BTSPAT, L500.2500, L501.9985 #### [facility] Laboratory [address] [place], [address] Internal Medicine Office Vis iton 02-11-2025 Internal Medicine Office Visit [facility] [address] [place] [address] [place] [address] OFFICE VISIT Date of Service: 02/11/25 MR#: [id number] Acct: [id number] Name: SHIRA SHEN Rep #: [id number] : 1950 Provider: SHARDA Marcum Age/Sex: 74/F Location: [facility] Status: Signed Intake Vital Signs 01/20/25 11:14 02/10/25 16:16 02/11/25 12:52 Height 5 ft 4 in 5 ft 4 in 5 ft 4 in Weight: 195 lb 193 lb BMI 33.5 33.1 BP 148/76 H Blood Pressure Location Lt brachial Position Sitting Respiration 18 Pulse 98 Pulse Source Monitor Temp 97.8 F Temp Source Temporal Pulse Oximetry (%) 96 Oxygen Delivery Method room air Intake Visit Reasons: acute - surgery clearance Chief Complaint: acute - surgery clearance Is patient in pain?: Yes (10 right hip ) Allergies codeine Allergy (Verified 02/11/25 12:53) Other Penicillins Allergy (Verified 02/11/25 12:53) Itching Hihdvfy-MYN-VfR Reductase Inhibitor (Tmkxvyt-Yqs-Tqb Reductase Inhibitor) Allergy (Verified 02/11/25 12:53) Unknown Sulfa (Sulfonamide Antibiotics) Allergy (Verified 02/11/25 12:53) Itching Medications ???Medication ???Instructions ???Recorded ???Confirmed ???Type multivitamin (Daily Multiple 1 ea PO DAILY supplement 08/22/15 02/11/25 History tablet) aspirin 81 mg tablet 81 mg PO DAILY anti-platelet 04/0302/11/25 History handicap placard #1 ea 11/20/23 02/11/25 Rx Rollator walker with brakes #1 ea 05/19/24 02/11/25 Rx acetaminophen 650 mg 650 mg PO Q12H PRN pain 05/19/24 0 02/11/25 History tablet,extended release (8 Hour Pain Reliever) blood pressure monitor (Blood #1 ea 05/19/24 02/11/25 Rx Pressure Kit) propranolol 120 mg capsule,24 120 mg PO DAILY BP #90 caps 02/11/25 Rx hr,extended release montelukast 10 mg tablet 10 mg PO QHS asthma #90 tabs 11/2502/11/25 Rx (Singulair) loratadine 10 mg tablet (Claritin) 10 mg PO DAILY PRN allergy sympt oms 01/15/25 02/11/25 History sertraline 100 mg tablet 100 mg PO DAILY DEPRESSION #90 tab s 02/10/25 02/11/25 Rx amlodipine 5 mg tablet 10 mg PO DAILY BP 02/11/25 5 History atorvastatin 40 mg tablet 40 mg PO QHS HDL 02/11/25 02/11/25 History calcium carbonate (Calcium 500) 1,000 mg PO DAILY PRN dyspepsia 02/11/25 History furosemide 20 mg tablet (Lasix) 20 mg PO BID #10 tabs 02/11/2508/26 Rx pantoprazole 40 mg tablet,delayed 40 mg PO DAILY GERD 02/11/2501/31 History release ramipril 5 mg capsule 5 mg PO QDAY #30 caps 02/11/2508/26 Rx sucralfate 1 gram tablet 1 g PO DAILY GERD 02/11/25 5 History Have you fallen in the past year?: No Nurse's Note: pt states she is here for surgical clearance and is scheduled on the for EKG and CT scan is scheduled February 23. [facility] Medical History Post-menopausal Walker as ambulation aid Anemia Dietary restriction Constipation Asthma History of pain when walking History of edema Family history of colon cancer in mother Hx of bladder problems Wears glasses Bipolar disorder Arthritis Bladder disease High cholesterol Gastric reflux Non-smoker CPAP (continuous positive airway pressure) dependence History of echocardiogram History of stress test Stroke/cerebrovascular accident Hx of migraines Radicular pain in left arm Obesity (BMI 30.0-34.9) Depression Bipolar 1 disorder Hypertension Surgical History Hx of colonoscopy History of esophagogastroduodenoscopy (EGD) Hx of surgical procedure History of bladder suspension procedure H/O: hysterectomy Family History Mother Colon cancer CAD (coronary artery disease) Angina at rest Breast cancer Cervical cancer Depression Hypertension Grandmother Diabetes Maternal grandmother CAD (coronary artery disease) Arthritis Heart disease Grandfather CAD (coronary artery disease) Bleeding disorder Father CAD (coronary artery disease) Hypertension Social History household members: none housing: house current occupational status: 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 Patient is planning to have a right total hip arthroplasty. Patient has been taking the n (more content not included)... Normal [facility] MR/BMS.on 02-10-2025 MR/BMS.[address], [address] [place] [address] OFFICE VISIT Date of Service: 02/10/25 MR#: [id number] Acct: [id number] Name: SHIRA SHEN Rep #: [id number] : 1950 Provider: ANGELINA valderrama Age/Sex: 74/F Location: [facility] Status: Signed Intake Vital Signs 01/20/25 11:14 02/10/25 16:16 Height 5 ft 4 in 5 ft 4 in Weight: 195 lb 194 lb BMI 33.5 33.3 BP 155/79 H Blood Pressure Location Lt brachial Position Sitting Respiration 16 Pulse 84 Pulse Source Monitor BP Intake Visit Reasons: F/u Accompanied by: Allergies codeine Allergy (Verified 02/10/25 16:19) Other Penicillins Allergy (Verified 02/10/25 16:19) Itching Bcbgupd-XZV-AhI Reductase Inhibitor (Cnkmzir-Oiw-Ftz Reductase Inhibitor) Allergy (Verified 02/10/25 16:19) Unknown Sulfa (Sulfonamide Antibiotics) Allergy (Verified 02/10/25 16:19) Itching Medications ???Medication ???Instructions ???Recorded ???Confirmed ???Type multivitamin (Daily Multiple 1 ea PO DAILY supplement 08/22/15 02/10/25 History tablet) aspirin 81 mg tablet 81 mg PO DAILY anti-platelet 04/0302/10/25 History handicap placard #1 ea 11/20/23 02/10/25 Rx lactulose 10 gram/15 mL oral See Rx Instructions PO BID PRN 02/10/25 Rx solution constipation #473 mL Lactobacillus acidophilus 10 100 mmu cells PO DAILY 05/19/24 History billion cell capsule (NewFlora) Rollator walker with brakes #1 ea 05/19/24 02/10/25 Rx acetaminophen 650 mg 650 mg PO Q12H PRN pain 05/19/24 0 02/10/25 History tablet,extended release (8 Hour Pain Reliever) blood pressure monitor (Blood #1 ea 05/19/24 02/10/25 Rx Pressure Kit) propranolol 120 mg capsule,24 120 mg PO DAILY #90 caps 08/19/24 02/10/25 Rx hr,extended release amlodipine 10 mg tablet 10 mg PO DAILY #90 TABLETS 5 02/10/25 Rx atorvastatin 40 mg tablet 40 mg PO DAILY HDL #90 tabs 02/10/25 Rx montelukast 10 mg tablet 10 mg PO QHS asthma #90 tabs 11/2502/10/25 Rx (Singulair) celecoxib 100 mg capsule (Celebrex) 100 mg PO BID #60 caps 12/23/24 02/10/25 Rx loratadine 10 mg tablet (Claritin) 10 mg PO DAILY PRN 01/15/2501/31 History ramipril 2.5 mg capsule 2.5 mg PO QDAY #30 caps 01/15/25 0 02/10/25 Rx sertraline 100 mg tablet 100 mg PO DAILY #90 tabs 02/10/25 02/10/25 Rx Have you fallen in the past year?: No PFSH Medical History Family history of colon cancer in mother History of edema Urinary retention Hx of bladder problems Wears glasses Bipolar disorder Arthritis Bladder disease High cholesterol Back pain Gastric reflux Non-smoker CPAP (continuous positive airway pressure) dependence History of echocardiogram History of stress test Stroke/cerebrovascular accident Hx of migraines Hx of emotional problems Hx of chronic arthritis Hx of seasonal allergies Radicular pain in left arm GERD (gastroesophageal reflux disease) Cerebrovascular disease Obesity (BMI 30.0-34.9) Depression Bipolar 1 disorder Hypertension Overactive bladder HLD (hyperlipidemia) HTN (hypertension) Surgical History Hx of surgical procedure History of bladder suspension procedure H/O: hysterectomy Family History Mother Colon cancer CAD (coronary artery disease) Angina at rest Breast cancer Cervical cancer Depression Hypertension Grandmother Diabetes Maternal grandmother CAD (coronary artery disease) Arthritis Heart disease Grandfather CAD (coronary artery disease) Bleeding disorder Father CAD (coronary artery disease) Hypertension Social History household members: none housing: house 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 Is planning to have a hip replacement at the beginning of March. Does voice concern over her son's current situation and him being in senior care. Has been seeing a counselor, Dionne, and this has been doing well. Does use prayer to help her through difficult times with her son. Denies any recent feelings of depression. Denies SI/HI. Denies feelings of anxiety. Denies panic attacks. Has been having some sleep disturbances due to al (more content not included)... Normal [facility] Orthopedic Visit Reporton Orthopedic Visit Report [facility] [address] [place] [address] OFFICE VISIT Date of Service: 01/20/25 MR#: [id number] Acct: [id number] Name: SHIRA SHEN Rep #: [id number] : 1950 Provider: Dr. Dain muniz, DO Age/Sex: 74/F Location: [facility] Status: Signed Intake Vital Signs 01/15/25 08:22 01/20/25 11:14 Height 5 ft 4 in 5 ft 4 in Weight: 194 lb 195 lb BMI 33.3 33.5 BP 142/86 H Blood Pressure Location Lt brachial Position Sitting Respiration 18 Pulse 81 Pulse Source Monitor Temp 98.2 F Temp Source Temporal Pulse Oximetry (%) 96 Oxygen Delivery Method room air Intake Visit Reasons: RIGHT HIP Chief Complaint: Right Hip Accompanied by: Friend Is patient in pain?: Yes Pain scale (1-10): 9 Allergies codeine Allergy (Verified 01/20/25 11:14) Other Penicillins Allergy (Verified 01/20/25 11:14) Itching Pdwgeca-ZLC-JpS Reductase Inhibitor (Nsgbiso-Uuc-Lyg Reductase Inhibitor) Allergy (Verified 01/20/25 11:14) Unknown Sulfa (Sulfonamide Antibiotics) Allergy (Verified 01/20/25 11:14) Itching Medications ???Medication ???Instructions ???Recorded ???Confirmed ???Type multivitamin (Daily Multiple 1 ea PO DAILY supplement 08/22/15 01/20/25 History tablet) aspirin 81 mg tablet 81 mg PO DAILY anti-platelet 04/0301/20/25 History handicap placard #1 ea 11/20/23 01/20/25 Rx lactulose 10 gram/15 mL oral See Rx Instructions PO BID PRN 01/20/25 Rx solution constipation #473 mL Lactobacillus acidophilus 10 100 mmu cells PO DAILY 05/19/24 History billion cell capsule (NewFlora) Rollator walker with brakes #1 ea 05/19/24 01/20/25 Rx acetaminophen 650 mg 650 mg PO Q12H PRN pain 05/19/24 0 01/20/25 History tablet,extended release (8 Hour Pain Reliever) blood pressure monitor (Blood #1 ea 05/19/24 01/20/25 Rx Pressure Kit) sertraline 100 mg tablet 100 mg PO DAILY #90 tabs 08/12/24 01/20/25 Rx propranolol 120 mg capsule,24 120 mg PO DAILY #90 caps 08/19/24 01/20/25 Rx hr,extended release amlodipine 10 mg tablet 10 mg PO DAILY #90 TABLETS 5 01/20/25 Rx atorvastatin 40 mg tablet 40 mg PO DAILY HDL #90 tabs 01/20/25 Rx montelukast 10 mg tablet 10 mg PO QHS asthma #90 tabs 11/2501/20/25 Rx (Singulair) sucralfate 1 gram tablet 1 g PO QAC 1 month #90 tabs 01/20/25 Rx celecoxib 100 mg capsule (Celebrex) 100 mg PO BID #60 caps 12/23/24 01/20/25 Rx loratadine 10 mg tablet (Claritin) 10 mg PO DAILY PRN 01/15/2501/01 History ramipril 2.5 mg capsule 2.5 mg PO QDAY #30 caps 01/15/25 0 01/20/25 Rx Have you fallen in the past year?: No PFSH Medical History Family history of colon cancer in mother History of edema Urinary retention Hx of bladder problems Wears glasses Bipolar disorder Arthritis Bladder disease High cholesterol Back pain Gastric reflux Non-smoker CPAP (continuous positive airway pressure) dependence History of echocardiogram History of stress test Stroke/cerebrovascular accident Hx of migraines Hx of emotional problems Hx of chronic arthritis Hx of seasonal allergies Radicular pain in left arm GERD (gastroesophageal reflux disease) Cerebrovascular disease Obesity (BMI 30.0-34.9) Depression Bipolar 1 disorder Hypertension Overactive bladder HLD (hyperlipidemia) HTN (hypertension) Surgical History Hx of surgical procedure History of bladder suspension procedure H/O: hysterectomy Family History Mother Colon cancer CAD (coronary artery disease) Angina at rest Breast cancer Cervical cancer Depression Hypertension Grandmother Diabetes Maternal grandmother CAD (coronary artery disease) Arthritis Heart disease Grandfather CAD (coronary artery disease) Bleeding disorder Father CAD (coronary artery disease) Hypertension Social History household members: none housing: house 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 Dain Blanchard, DO 01/20/25 0747. Part of today???s visit was documented by Viviane Carlson ATC, acting as scribe. SHIRA SHEN is a 74 year old F here today for right hip chava (more content not included)... Normal [facility] Internal Medicine Office Vis marisol 01-15-2025 Internal Medicine Office Visit [facility] [place] [address] OFFICE VISIT Date of Service: 01/15/25 MR#: [id number] Acct: [id number] Name: SHIRA SHEN Rep #: [id number] : 1950 Provider: SHARDA Marcum Age/Sex: 74/F Location: [facility] [place] Status: Signed Intake Vital Signs 11/25/24 10:30 01/15/25 08:22 Height 5 ft 4 in 5 ft 4 in Weight: 194 lb BMI 33.3 BP 142/86 H Blood Pressure Location Lt brachial Position Sitting Respiration 18 Pulse 81 Pulse Source Monitor Temp 98.2 F Temp Source Temporal Pulse Oximetry (%) 96 Oxygen Delivery Method room air Intake Visit Reasons: ACUTE - HIP PAIN Chief Complaint: ACUTE- HIP PAIN Is patient in pain?: Yes (8 right hip) Allergies codeine Allergy (Verified 01/15/25 08:23) Other Penicillins Allergy (Verified 01/15/25 08:23) Itching Ulksfpb-CGZ-ZqD Reductase Inhibitor (Utwxhdd-Lqf-Omd Reductase Inhibitor) Allergy (Verified 01/15/25 08:23) Unknown Sulfa (Sulfonamide Antibiotics) Allergy (Verified 01/15/25 08:23) Itching Medications ???Medication ???Instructions ???Recorded ???Confirmed ???Type multivitamin (Daily Multiple 1 ea PO DAILY supplement 08/22/15 12/23/24 History tablet) aspirin 81 mg tablet 81 mg PO DAILY anti-platelet 04/0301/15/25 History handicap placard #1 ea 11/20/23 01/15/25 Rx lactulose 10 gram/15 mL oral See Rx Instructions PO BID PRN 01/15/25 Rx solution constipation #473 mL Lactobacillus acidophilus 10 100 mmu cells PO DAILY 05/19/24 History billion cell capsule (NewFlora) Rollator walker with brakes #1 ea 05/19/24 01/15/25 Rx acetaminophen 650 mg 650 mg PO Q12H PRN pain 05/19/24 0 01/15/25 History tablet,extended release (8 Hour Pain Reliever) blood pressure monitor (Blood #1 ea 05/19/24 01/15/25 Rx Pressure Kit) sertraline 100 mg tablet 100 mg PO DAILY #90 tabs 08/12/24 01/15/25 Rx propranolol 120 mg capsule,24 120 mg PO DAILY #90 caps 08/19/24 01/15/25 Rx hr,extended release amlodipine 10 mg tablet 10 mg PO DAILY #90 TABLETS 5 01/15/25 Rx atorvastatin 40 mg tablet 40 mg PO DAILY HDL #90 tabs 01/15/25 Rx montelukast 10 mg tablet 10 mg PO QHS asthma #90 tabs 11/2501/15/25 Rx (Singulair) sucralfate 1 gram tablet 1 g PO QAC 1 month #90 tabs 01/15/25 Rx celecoxib 100 mg capsule (Celebrex) 100 mg PO BID #60 caps 12/23/24 01/15/25 Rx loratadine 10 mg tablet (Claritin) 10 mg PO DAILY PRN 01/15/2512/31 History ramipril 2.5 mg capsule 2.5 mg PO QDAY #30 caps 01/15/25 0 01/15/25 Rx Have you fallen in the past year?: No PFSH Medical History Family history of colon cancer in mother History of edema Urinary retention Hx of bladder problems Wears glasses Bipolar disorder Arthritis Bladder disease High cholesterol Back pain Gastric reflux Non-smoker CPAP (continuous positive airway pressure) dependence History of echocardiogram History of stress test Stroke/cerebrovascular accident Hx of migraines Hx of emotional problems Hx of chronic arthritis Hx of seasonal allergies Radicular pain in left arm GERD (gastroesophageal reflux disease) Cerebrovascular disease Obesity (BMI 30.0-34.9) Depression Bipolar 1 disorder Hypertension Overactive bladder HLD (hyperlipidemia) HTN (hypertension) Surgical History Hx of surgical procedure History of bladder suspension procedure H/O: hysterectomy Family History Mother Colon cancer CAD (coronary artery disease) Angina at rest Breast cancer Cervical cancer Depression Hypertension Grandmother Diabetes Maternal grandmother CAD (coronary artery disease) Arthritis Heart disease Grandfather CAD (coronary artery disease) Bleeding disorder Father CAD (coronary artery disease) Hypertension Social History household members: none housing: house current occupational status: retired 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 sexually active: No Smoking Status: Never smoker Electronic Cigarette Use: not used alcohol intake: never substance use type: does not use what type of physical activity do you participate in: none seatbelt use: always do you feel safe at home: Yes HPI HPI Chief Complaint: ACUTE- HIP PAIN Details: SHIRA SHEN, is a 74 F who presents to the office today for ROS Const Constitutional: No body ache, chills, excessive sweating, fatigue, fever(s), frequent falls, headache(s), snoring, weight change, sleep problems, abnormal sleep pattern or change in appetite Eyes Eyes: No blurry vis (more content not included)... Normal [facility] Re-Evaluation - PT (1)on Re-Evaluation - PT (1) [facility] Physical Therapy [facility] [address] [place] [address]. [address] [place] [address] / REEVALUATION / MEDICARE RECERTIFICATION PHYSICAL THERAPY MR#: [id number] Acct: [id number] Name: SHIRA SHEN Rep #: [id number] : 1950 74 From: Will Fletcher PT, Cert. T, OCS Referring Dr.: Dr. Nimisha Olvera MD Status:REG RCR Insurance: [facility] COMPLETE MEDICAID Re-Evaluation Intro: Dr. Nimisha Olvera MD, It has been my pleasure to treat SHIRA SHEN over the last 5 visits for PAIN IN RIGHT LEG ,CHRONIC PAIN. Please see the progress note below for an update on the physical therapy plan of care! Subjective Subjective: Seen DR Vigil ,provided new order x-ray right hip: Moderate to severe right hip arthrosis joint space narrowing subchondral sclerosis and spurring Discussed with patient options to included prednisone and Celebrex Objective Objective/Function: OSTURE: mild forward posture GAIT: reciprocal pattern mild forward posture with rollator decrease stance time NEURO: c/o paresthesia/tingling right arm ,reflexes L3-4.L4-5,;5-S1 2/3 AROM: right supine knee flexion 10-120 degrees ,hip supine flexion 90 degrees ,hip abduction 30 degrees ,IR RIGHT MMT: ( peak force )quad right 18.9 ,left 18.2 hams right 16.3 right 17.5 ,hip flexion right 18.5 ,left 19.1 ,ankle 4/5 FLEXABILITY: hamstrings mod tight Plan Plan Plan: PT INTERVENTIONS BLE STRENGTHENING (RLE QUADS/HAMS/HIP ,FUNCTIONAL STRENGTHENING ,BALANCE TRAINING , AND ENDURANCE PROGRAM Balance/Gait/Functional tests Balance/Special Test Scores CATSIB Score (Max score 120 seconds): 36 Lower Extremity Functional Score: 12 30 Second Chair Rise Test Seconds: 9 Goals Goals Goal 1:: Patient to be with HEP for strengthening Goal Time Frame: 4-6 Weeks Goal Progress: Progressing Goal 2:: Patient to improve CATSIB with by 5 points to improve balance Goal Time Frame: 4-6 Weeks Goal Progress: Progressing Goal 3:: Patient to LFES score by 5 points to improve QOL and function Goal Time Frame: 4-6 Weeks Goal Progress: Progressing Goal 4:: Patient to improve peak force quads/hams/hip by 5-10# to improve gait Goal Time Frame: 4-6 Weeks Goal Progress: Progressing Goal 5:: Patient to improve 30sec sit-stand by 3-5 reps to improve functional strength Goal Time Frame: 4-6 Weeks Goal Progress: Progressing Goal 6:: Patient to improve AROM hip by 5 -10 degrees to improve function and gait( new goal) Anticipated Interventions Anticipated Interventions Patient/Client Instruction: Educate patient on: Condition and Plan of Care For the Purpose of:: To decrease pain, To increase ROM, To improve muscle performance and motor function, To improve ability to perform ADL's, To increase tolerance to activity/condition/position, To improve ability of physical actions for home/community/work/leisure, To improve gait and locomotor functions, To increase flexibility/ROM, To improve endurance and To improve balance Therapeutic Exercise to Include: Strength training, Endurance training, Balance training, Postural training, Flexibilty training and Dynamic Lumbar Stabilization Comment: QUADS/HAMS/HIP For the Purpose of:: To decrease pain, To increase ROM, To improve muscle performance and motor function, To increase tolerance to activity/condition/position, To improve ability of physical a ctions for home/community/work/leisure, To improve gait and locomotor functions, To increase flexibility/ROM, To improve endurance and To improve tolerance to ADL's Re-Evaluation Ending Re-evaluation ending: Please do not hesitate to contact me at [phone] by phone or if you have questions or concerns regarding this new plan of care! Sincerely, Will Fletcher PT, Cert MDT, [facility] 12/28/24 8997 CC: Dr. Nimisha Olvera MD FAVIO Signed For Medicare only, by signing this I certify the plan of care. Physicians Signature Date Normal [facility] HIP, UNI W/ Pelvis 2-3 Views on 12-23-2024 HIP, UNI W/ Pelvis 2-3 Views [facility] Imaging Services [address] [place], [place] [address] HIP, UNI W/ Pelvis 2-3 Views MR#: [id number] Acct: [id number] Name: SHIRA SHEN Rep #: [id number] : 1950 F 74 From: Graham Covarrubias MD PCP: Dr. Nimisha Olvera MD Status: DEP AMB Study: HIP, UNI W/ Pelvis 2-3 Views Date of Exam: Exam# [id number] Ordering Dr: Dain Blanchard DO PROCEDURE: HIP, UNI W/ PELVIS 2-3 VIEWS 12/23/2024 REASON FOR EXAM: CHRONIC HIP PAIN TECHNIQUE: Frontal view of the pelvis with three views of the right hip COMPARISON: None FINDINGS: A device is noted overlying the right hip with the wire extending to the mid pelvis to the left of midline. There is a moderate to severe osteoarthritis of the right hip with superolateral migration, joint space narrowing, and marginal osteophytes. The SI joints are aligned. The sacral foramina appear intact. No fracture is identified. Osteopenia is noted. RAD/HIP, UNI W/ Pelvis 2-3 Views IMPRESSION: There is a moderate to severe osteoarthritis of the right hip with superolateral migration, joint space narrowing, and marginal osteophytes. Reading Location: [facility] CC: Dr. Nimisha Olvera MD; Dr. Dain Blanchard DO Bakeshop Cleaner: Signed Normal [facility] Lumbar Spine 2 or 3 Viewson 12-23-2024 Lumbar Spine 2 or 3 Views [facility] Imaging Services [address] [place], [place] [address] Lumbar Spine 2 or 3 Views MR#: [id number] Acct: [id number] Name: SHIRA SHEN Rep #: [id number] : 1950 F 74 From: Graham Covarrubias MD PCP: Dr. Nimisha Olvera MD Status: DEP AMB Study: Lumbar Spine 2 or 3 Views Date of Exam: Exam# [id number] Ordering Dr: Dain Blanchard DO PROCEDURE: LUMBAR SPINE 2 OR 3 VIEWS 12/23/2024 REASON FOR EXAM: RIGHT HIP PAIN TECHNIQUE: 2 view(s) of the lumbar spine COMPARISON: None FINDINGS: Vertebral body height and alignment are grossly maintained. There is dextrocurvature of the lumbar region with less than 10 degrees of variance, which can indicate spasm. There is degenerative disc disease at L5-S1. There is moderate facet sclerosis. Mineralization is normal. A device is noted with the wire on the right. Mineralization is normal. Vascular calcifications are visible. RAD/Lumbar Spine 2 or 3 Views IMPRESSION: There is dextrocurvature of the lumbar region with less than 10 degrees of variance, which can indicate spasm. There is degenerative disc disease at L5-S1. Reading Location: [facility] CC: Dr. Nimisha Olvera MD; Dr. Dain Blanchard DO Bakeshop Cleaner: Signed Normal [facility] Orthopedic Visit Reporton Orthopedic Visit Report [facility] [address] [place] [address] OFFICE VISIT Date of Service: 12/23/24 MR#: [id number] Acct: [id number] Name: SHIRA SHEN Rep #: [id number] : 1950 Provider: Dr. Dain muniz DO Age/Sex: 74/F Location: [facility] [place] Status: Signed Intake Vital Signs 11/25/24 10:30 Height 5 ft 4 in Intake Visit Reasons: RIGHT HIP Allergies codeine Allergy (Verified 12/23/24 10:41) Other Penicillins Allergy (Verified 12/23/24 10:41) Itching Shikogb-MEP-ZiV Reductase Inhibitor (Clwsyvr-Rbn-Gwk Reductase Inhibitor) Allergy (Verified 12/23/24 10:41) Unknown Sulfa (Sulfonamide Antibiotics) Allergy (Verified 12/23/24 10:41) Itching Medications ???Medication ???Instructions ???Recorded ???Confirmed ???Type multivitamin (Daily Multiple 1 ea PO DAILY supplement 08/22/15 12/23/24 History tablet) aspirin 81 mg tablet 81 mg PO DAILY anti-platelet 04/0312/23/24 History handicap placard #1 ea 11/20/23 12/23/24 Rx naproxen sodium 220 mg capsule 220 mg PO BID 04/09/24 12/23/24 Hi story lactulose 10 gram/15 mL oral See Rx Instructions PO BID PRN 12/23/24 Rx solution constipation #473 mL Lactobacillus acidophilus 10 100 mmu cells PO DAILY 05/19/24 History billion cell capsule (NewFlora) Rollator walker with brakes #1 ea 05/19/24 12/23/24 Rx acetaminophen 650 mg 650 mg PO Q12H PRN pain 05/19/24 0 12/23/24 History tablet,extended release (8 Hour Pain Reliever) blood pressure monitor (Blood #1 ea 05/19/24 12/23/24 Rx Pressure Kit) loratadine 10 mg tablet (Claritin) 10 mg PO DAILY 05/19/24 12/23/24 History pantoprazole 40 mg tablet,delayed 40 mg PO BID #180 tabs 08/07/24 0 12/23/24 Rx release sertraline 100 mg tablet 100 mg PO DAILY #90 tabs 08/12/24 12/23/24 Rx propranolol 120 mg capsule,24 120 mg PO DAILY #90 caps 08/19/24 12/23/24 Rx hr,extended release amlodipine 10 mg tablet 10 mg PO DAILY #90 TABLETS 5 12/23/24 Rx atorvastatin 40 mg tablet 40 mg PO DAILY HDL #90 tabs 12/23/24 Rx montelukast 10 mg tablet 10 mg PO QHS asthma #90 tabs 11/2512/23/24 Rx (Singulair) metoclopramide HCl 5 mg tablet 5 mg PO TID 7 days #21 tabs 12/23/24 Rx sucralfate 1 gram tablet 1 g PO QAC 1 month #90 tabs 12/23/24 Rx celecoxib 100 mg capsule (Celebrex) 100 mg PO BID #60 caps 12/23/24 12/23/24 Rx methylprednisolone 4 mg tablets in See Rx Instructions PO PER PKG D IR 12/23/24 12/23/24 Rx a dose pack (Medrol (Jayson)) #21 tabs Have you fallen in the past year?: No PFSH Medical History Family history of colon cancer in mother History of edema Urinary retention Hx of bladder problems Wears glasses Bipolar disorder Arthritis Bladder disease High cholesterol Back pain Gastric reflux Non-smoker CPAP (continuous positive airway pressure) dependence History of echocardiogram History of stress test Stroke/cerebrovascular accident Hx of migraines Hx of emotional problems Hx of chronic arthritis Hx of seasonal allergies Radicular pain in left arm GERD (gastroesophageal reflux disease) Cerebrovascular disease Obesity (BMI 30.0-34.9) Depression Bipolar 1 disorder Hypertension Overactive bladder HLD (hyperlipidemia) HTN (hypertension) Surgical History Hx of surgical procedure History of bladder suspension procedure H/O: hysterectomy Family History Mother Colon cancer CAD (coronary artery disease) Angina at rest Breast cancer Cervical cancer Depression Hypertension Grandmother Diabetes Maternal grandmother CAD (coronary artery disease) Arthritis Heart disease Grandfather CAD (coronary artery disease) Bleeding disorder Father CAD (coronary artery disease) Hypertension Social History household members: none housing: house 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 Dain Blanchard, DO 12/23/24 0804. Part of today???s visit was documented by Courtney RAMIREZ, acting as scribe. SHIRA SHEN is a 74 year old F with medical history significant for chronic right lower extremity pain , right hip arthrosis, hyperlipidemia, hyperten (more content not included)... Normal [facility] NCS and/or EMG Patienton NCS and/or EMG Patient [facility] Pulmonary Services/Neurology [address] [place] [address] MR#: [id number] Acct: [id number] Name: SHIRA SHEN Rep #: [id number] : 1950 74 From: Leilani Denise MD Referring Dr: Nimisha Olvera MD Status: REG CLI Location: PSN Date: 12/09/24 Sex: F C NCS and/or EMG Patient Report Ordering Doctor: Nimisha Olvera DATE OF SERVICE: 12/09/24 Shira presents with numbness and tingling in the right hand. Electrodiagnostic findings: Right median motor nerve demonstrates normal distal latency and amplitude with reduced conduction velocity. Right ulnar motor response within normal limits. Normal right median and right ulnar F???waves. Prolonged right median sensory latency at the wrist. Needle EMG testing was performed in the right upper limb. All muscles tested showed no evidence of denervation with normal motor action potentials. Electrodiagnostic impression: This is an abnormal study of the right upper limb. 1. Electrodiagnostic findings suggestive of right-sided median mononeuropathy. This consistent with a mild right carpal tunnel syndrome Multi Select Codes Neurology Neurology Interp Codes: 42220-43 Musc test done w/n test comp (interp) and 77321-96 Nrv cndj test 7- 8 studies (interp) 12/09/24 1242 Date Leilani Denise MD CC: Dr. Nimisha Olvera MD; Dr. Leilani Denise MD Date Dictated: 12/09/24 1238 Date Transcribed: 12/09/24 1238 Bakeshop Cleaner: AA Signed Normal [facility] Inital Evaluation (1) - PTon 12-04-2024 Inital Evaluation (1) - PT [facility] Physical Therapy [facility] [address] [place] [address]. [address] [place] [address] / REHABILITATION SERVICES INITIAL EVALUATION MR#: [id number] Acct: [id number] Name: SHIRA SHEN Rep #: [id number] : 1950 74 From: Will Fletcher PT, Cert. T, OCS Referring Dr.: Dr. Nimisha Olvera MD Status: R EG RCR Insurance: [facility] COMPLETE MEDICAID Patient's Visit Information Visit Information Visit Information: SHIRA SHEN is a 74 year old F referred to Physical Therapy by Dr. Nimisha Olvera MD with a diagnosis of PAIN IN RIGHT LEG ,CHRONIC PAIN. Date of Evaluation: 12/04/24 Physical Therapist: Will Fletcher PT, Cert MDT, OCS Visit Plan Frequency: 2x /Week Duration: 4 Weeks Plan: PT INTERVENTIONS BLE STRENGTHENING( RLE QUADS/HAMS/HIP ,FUNCTIONAL STRENGTHENING ,BALANCE TRAINING , AND ENDURANCE PROGRAM Subjective Subjective: This 74 y/o female presents to physical therapy with right leg pain. Patient symptoms worse since Sep 2024. Patient seen Dr cano PT and plans to do ENG test ( nerve conduction) due to c/os of tingling/paresthesia in right arm. Patient has h/o CVA 3 years ago . Patient doesn't see neurologist. Patient had bone density for osteoporosis.X-rays hips mild DJD. Patient pain located thigh groin to foot. Aggravating factors waling standing with rollator. Alleviating factors sitting. Patient uses rollator for gait. No recent falls.Coughing/sneezing-. Bowel.bladder -. Patient has difficulty sleeping. Patient had PT in past to hip pain. Patient was going to join . Patient lives along [facility] apartment. Patient was trying to get [employer] but insurance wont cover, Patient is unable to get in/ou tub. Patient condition affects QOLand function/housework. Patient goals gett stronger. SOCAIL : single VOCATIONL: retired Pain Right Lower Extremity: Pain Intensity (Out of 10): 7 Pain Intensity Range: 10 Objective Objective: POSTURE: mild forward posture GAIT: reciprocal pattern mild forward posture with rollator decrease stance time NEURO: c/o paresthesia/tingling right arm ,reflexes L3-4.L4-5,;5-S1 2/3 AROM: supine knee flexion 0-120 degrees ,hip supine flexion 100 degrees ,hip abduction 35 degrees MMT: ( peak force )quad right 18.9 ,left 17.9 hams right 16.9 right 17.8 ,hip flexion right 18,3 ,left 19.0 ,ankle 4/5 FLEXABILITY: hamstrings mod tight LUMBAR ROM: flexion mod loss ,extension severe loss pain ,side glides mod loss BALANCE: fair+ with rollator STAIRS: one step at time with rails Balance/Special Test Scores CATSIB Score (Max score 120 seconds): 36 Lower Extremity Functional Score: 12 30 Second Chair Rise Test Seconds: 9 Goals Goal 1:: Patient to be with HEP for strengthening Goal Time Frame: 4-6 Weeks Goal 2:: Patient to improve CATSIB with by 5 points to improve balance Goal Time Frame: 4-6 Weeks Goal 3:: Patient to LFES score by 5 points to improve QOL and function Goal Time Frame: 4-6 Weeks Goal 4:: Patient to improve peak force quads/hams/hip by 5-10# to improve gait Goal Time Frame: 4-6 Weeks Goal 5:: Patient to improve 30sec sit-stand by 3-5 reps to improve functional strength Goal Time Frame: 4-6 Weeks Rehabilitation Potential Physical Therapy Diagnosis: This patient has h/o CVA affected right side 3 years ago with patient have pain and weakness right leg and uses rollator with gait decrease balance thus benefit from skilLed PT Rehabilitation Potential: Good Anticipated Interventions Patient/Client Instruction: Educate patient on: Condition and Plan of Care For the Purpose of:: To decrease pain, To increase ROM, To improve muscle performance and motor function, To improve ability to perform ADL's, To increase tolerance to activity/condition/position, To improve ability of physical actions for home/community/work/leisure, To improve gait and locomotor functions, To increase flexibility/ROM, To improve endurance and To improve balance Therapeutic Exercise to Include: Strength training, Endurance training, Balance training, Postural training, Flexibilty training and Dynamic Lumbar Stabilization Comment: QUADS/HAMS/HIP For the Purpose of:: To decrease pain, To increase ROM, To improve muscle performance and motor function, To increase tolerance to activity/condition/position, To improve ability of physical actions for home/community/work/leisure, To improve gait and locomotor functions, To increase flexibility/ROM, To improve endurance and To improve tolerance to ADL's Text: Thank you for the opportunity to evaluate your patient. For Medicare and Medicare HMO plans, please review the plan of care and approve it. It will need to be FAXED BACK to us at [phone] for Medicare purposes. For Medicare only, by signing this I certify the plan of care. Please let me know if there are questions or concerns r (more content not included)... Normal [facility] Internal Medicine Office Vis marisol 11-24-2024 Internal Medicine Office Visit [facility] [address] [place] [address] [place] [address] OFFICE VISIT Date of Service: 11/25/24 MR#: [id number] Acct: [id number] Name: SHIRA SHEN Rep #: [id number] : 1950 Provider: Dr. Nimisha figueroa MD Age/Sex: 74/F Location: [facility] [place] Status: Signed Intake Vital Signs 08/19/24 08:18 11/25/24 10:30 11/25/24 16:15 Height 5 ft 4 in 5 ft 4 in Weight: 190 lb 8 oz BMI 32.7 BP 142/78 H 130/78 H Blood Pressure Location Lt brachial Position Sitting Respiration 16 Pulse 71 Pulse Source Monitor Temp 97.2 F L Temp Source Temporal Intake Visit Reasons: 3 M FU Chief Complaint: fu Brooch Maker Novelty Required: No Accompanied by: Self Is patient in pain?: No Allergies codeine Allergy (Verified 11/25/24 10:29) Other Penicillins Allergy (Verified 11/25/24 10:29) Itching Wcfrcua-YGC-YrE Reductase Inhibitor (Jbjlwsh-Ahv-Gqi Reductase Inhibitor) Allergy (Verified 11/25/24 10:29) Unknown Sulfa (Sulfonamide Antibiotics) Allergy (Verified 11/25/24 10:29) Itching Medications ???Medication ???Instructions ???Recorded ???Confirmed ???Type multivitamin (Daily Multiple 1 ea PO DAILY supplement 08/22/15 11/25/24 History tablet) aspirin 81 mg tablet 81 mg PO DAILY anti-platelet 04/0311/25/24 History handicap placard #1 ea 11/20/23 11/25/24 Rx naproxen sodium 220 mg capsule 220 mg PO BID 04/09/24 11/25/24 Hi story lactulose 10 gram/15 mL oral See Rx Instructions PO BID PRN 11/25/24 Rx solution constipation #473 mL Lactobacillus acidophilus 10 100 mmu cells PO DAILY 05/19/24 History billion cell capsule (NewFlora) Rollator walker with brakes #1 ea 05/19/24 11/25/24 Rx acetaminophen 650 mg 650 mg PO Q12H PRN pain 05/19/24 0 11/25/24 History tablet,extended release (8 Hour Pain Reliever) blood pressure monitor (Blood #1 ea 05/19/24 11/25/24 Rx Pressure Kit) loratadine 10 mg tablet (Claritin) 10 mg PO DAILY 05/19/24 11/25/24 History pantoprazole 40 mg tablet,delayed 40 mg PO BID #180 tabs 08/07/24 0 11/25/24 Rx release prednisone 20 mg tablet 20 mg PO QDAY #10 tabs 08/12/24 Rx sertraline 100 mg tablet 100 mg PO DAILY #90 tabs 08/12/24 11/25/24 Rx propranolol 120 mg capsule,24 120 mg PO DAILY #90 caps 08/19/24 11/25/24 Rx hr,extended release amlodipine 10 mg tablet 10 mg PO DAILY #90 TABLETS 5 11/25/24 Rx atorvastatin 40 mg tablet 40 mg PO DAILY HDL #90 tabs 11/25/24 Rx montelukast 10 mg tablet 10 mg PO QHS asthma #90 tabs 11/2511/25/24 Rx (Singulair) Have you fallen in the past year?: No Nurse's Note: needs refills PFSH Medical History History of edema Urinary retention Hx of bladder problems Wears glasses Bipolar disorder Arthritis Bladder disease High cholesterol Back pain Gastric reflux Non-smoker CPAP (continuous positive airway pressure) dependence History of echocardiogram History of stress test Stroke/cerebrovascular accident Hx of migraines Hx of emotional problems Hx of chronic arthritis Hx of seasonal allergies Radicular pain in left arm GERD (gastroesophageal reflux disease) Cerebrovascular disease Obesity (BMI 30.0-34.9) Depression Bipolar 1 disorder Hypertension Overactive bladder HLD (hyperlipidemia) HTN (hypertension) Surgical History Hx of surgical procedure History of bladder suspension procedure H/O: hysterectomy Family History Mother Colon cancer CAD (coronary artery disease) Angina at rest Breast cancer Cervical cancer Depression Hypertension Grandmother Diabetes Maternal grandmother CAD (coronary artery disease) Arthritis Heart disease Grandfather CAD (coronary artery disease) Bleeding disorder Father CAD (coronary artery disease) Hypertension Social History household members: none housing: house current occupational status: retired 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 She is up to date on her routine blood work and screening.??? She is up to date on her immunizations.??? She doesn't smoke and does need refills today.??? She reports that she is still not eating very healthy and isn't staying very active. The patient did see t (more content not included)... Normal [facility] Dexa Bone Density Studyon Dexa Bone Density Study [facility] Imaging Services [address], [place] [address] Dexa Bone Density Study MR#: [id number] Acct: [id number] Name: SHIRA SHEN Rep #: [id number] : 1950 F 74 From: Segundo Cordon i DO PCP: Dr. Nimisha Olvera MD Status: [facility] Study: Dexa Bone Density Study Date of Exam: 10/07/24 Exam# [id number] Ordering Dr: Nimisha Olvera MD Female. Osteoporosis screening. PROCEDURE: DEXA BONE DENSITY STUDY REASON FOR EXAM: 74-year-old TECHNIQUE: DEXA scan of the lumbar spine and both hips. COMPARISON: None. FINDINGS: T-SCORES Lumbar spine: T-score 1.2 (bone mineral density 1.152 g per cm2.) Left hip: T-score -2.0. (Bone mineral density 0.625 g per cm2.) Right hip: T-score -1.9. (Bone mineral density 0.641 g per cm2.) FRAX* Results: 10 Year Probability of Fracture: Hip Fracture(1): 2.3% Major Osteoporotic Fracture(2): 11% *FRAX is a trademark of the [employer]'s [place] for Metabolic Bone Disease, World Health Organization (WHO) Collaborating [place]. 1-The 10-year probability of fracture may be lower than reported if the patient has received treatment. 2-Major Osteoporotic Fracture: Clinical Spine, Forearm, Hip or Shoulder. The T-scores are also available for review on the [facility] PACS or by accessing the [facility] electronic medical record. BD/Dexa Bone Density Study IMPRESSION: Osteopenia. Reading Location: [place] CC: Dr. Nimisha Olvera MD Bakeshop Cleaner: Signed Normal [facility] SCRN MAMM (CAD)W/BENJA BILATo n 10-07-2024 SCRN MAMM (CAD)W/BENJA BILAT [facility] Imaging Services [address] [place] [address] [id number] SCRN MAMM (CAD)W/BENJA BILAT MR#: [id number] Acct: [id number] Name: SHIRA SHEN Rep #: [id number] : 1950 F 74 From: Dejan masters MD PCP: Dr. Nimisha Olvera MD Status: [facility] Study: SCRN MAMM (CAD)W/BENJA BILAT Date of Exam: 01/24 Exam# [id number] Ordering Dr: Nimisha Olvera MD PROCEDURE: SCRN MAMM (CAD)W/BENJA BILAT REASON FOR EXAM: F, Age 74 y/o, no family history. Routine annual follow-up. TECHNIQUE: Bilateral screening digital breast tomosynthesis with 2D and 3D images. Computer aided detection. COMPARISON: Prior exam(s) dating back to outside images dated August 04, 2020.. FINDINGS: There are scattered areas of fibroglandular density. Stable examination. No suspicious masses, areas of developing architectural distortion, or suspicious calcifications. BI/SCRN MAMM (CAD)W/BENJA BILAT IMPRESSION: BI-RADS 2: BENIGN. RECOMMEND ANNUAL MAMMOGRAPHIC SCREENING. Follow-up code: Routine Follow-up The patient will be notified of the results by letter. Reading Location: [place] [address] CC: Dr. Nimisha Olvera MD Bakeshop Cleaner: Signed Normal [facility] Hemoglobin A1con 08-19-2024 HbA1c (Bld) [Mass fraction] 6.6 % High 3.8-5.6 [facility] Comment on above: Result Comment: Norm al < 5.7 % Prediabetic 5.7 - 6.4 % Diabetic >or= 6.5 % Please note range changes. Performed By: #### L 501.9985, L500.4100 ####[facility] [address] [place], [address] Lipid Profileon 08-19-2024 Cholesterol [Mass/Vol] 192 mg/dL Normal 200 [facility] Comment on above: Result Comment: <200 mg/dL Desirable 200-240 mg/dL Borderline >240 mg/dL High Risk Performed By: #### L 501.9985, L500.4100 ####[facility] [address] [place], [address] Cholesterol in HDL [Mass/Vol] 57 mg/dL Normal [facility] Comment on above: Result Comment: The drugs N-Acetylcysteine and Metamizole may falsely depress this assay. Reference Range HDL <40 mg/dL Low HDL Cholesterol HDL >or= 60 mg/dL High HDL Cholesterol Performed By: #### L 501.9985, L500.4100 ####[facility] [address] [place], [address] Cholesterol in LDL [Mass/Vol] 101 mg/dL Normal 0-130 [facility] Comment on above: Performed By: #### L 501.9985, L500.4100 ####[facility] [address] [place], [address] Cholesterol in VLDL [Mass/Vol] 34 mg/dL Normal 5-40 [facility] Comment on above: Performed By: #### L 501.9985, L500.4100 ####[facility] [address] [place], [address] Triglyceride [Mass/Vol] 171 mg/dL Normal [facility] Comment on above: Result Comment: The drugs N-Acetylcysteine and Metamizole may falsely depress this assay. Serum Triglycerides Reference Interval Normal <150 mg/dL Borderline high 150 - 199 mg/dL High 200 - 499 mg/dL Very High > or = 500 mg/dL Performed By: #### L 501.9985, L500.4100 ####[facility] [address] [place], [address] Urinalysis, Completeon 08-19 BACTERIA 2+ /hpf Normal None Seen [facility] Comment on above: Order Comment: COLLE CTOR TO SPECIFY Performed By: #### L 400.0001 ####[facility] [address] [place], [address] EPI,SQUAMOUS 0-5 SEEN Normal 5-10 [facility] Comment on above: Order Comment: COLLE CTOR TO SPECIFY Performed By: #### L 400.0001 ####[facility] [address] [place], [address] Mucus Ql (Urine sed) 0 SEEN Normal [facility] Comment on above: Order Comment: COLLE CTOR TO SPECIFY Performed By: #### L 400.0001 ####[facility] [address] [place], [address] RBC 0 SEEN Normal 0-5 [facility] Comment on above: Order Comment: COLLE CTOR TO SPECIFY Performed By: #### L 400.0001 ####[facility] [address] [place], [address] WBC 0 SEEN Normal 0-5 [facility] Comment on above: Order Comment: COLLE CTOR TO SPECIFY Performed By: #### L 400.0001 ####[facility] [address] [place], [address] Internal Medicine Office Vis marisol 08-18-2024 Internal Medicine Office Visit [facility] [address] [place], [place] [address] OFFICE VISIT Date of Service: 08/19/24 MR#: [id number] Acct: [id number] Name: SHIRA SHEN Rep #: [id number] : 1950 Provider: Dr. Nimisha figueroa MD Age/Sex: 74/F Location: [facility] [place] Status: Signed Intake Vital Signs 08/12/24 09:46 08/19/24 08:18 08/19/24 10:05 Height 5 ft 4 in 5 ft 4 in Weight: 190 lb BMI 32.5 BP 152/84 H 148/84 H Blood Pressure Location Lt brachial Position Sitting Respiration 16 Pulse 80 Pulse Source Monitor Temp 98.0 F Temp Source Temporal Pulse Oximetry (%) 99 Oxygen Delivery Method room air Intake Visit Reasons: HIGH BP Chief Complaint: high bp Brooch Maker Novelty Required: No Accompanied by: Self Is patient in pain?: No Allergies codeine Allergy (Verified 08/19/24 08:14) Other Penicillins Allergy (Verified 08/19/24 08:14) Itching Ioehnxe-THM-VcQ Reductase Inhibitor (Erimgwc-Qqy-Ovx Reductase Inhibitor) Allergy (Verified 08/19/24 08:14) Unknown Sulfa (Sulfonamide Antibiotics) Allergy (Verified 08/19/24 08:14) Itching Medications ???Medication ???Instructions ???Recorded ???Confirmed ???Type multivitamin (Daily Multiple 1 ea PO DAILY supplement 08/22/15 08/19/24 History tablet) aspirin 81 mg tablet 81 mg PO DAILY anti-platelet 04/03/22 08/19/24 History handicap placard #1 ea 11/20/23 08/19/24 Rx naproxen sodium 220 mg capsule 220 mg PO BID 04/09/24 08/19/24 History lactulose 10 gram/15 mL oral See Rx Instructions PO BID PRN 04/21/24 08/19/24 Rx solution constipation #473 mL Lactobacillus acidophilus 10 100 mmu cells PO DAILY 05/19/24 08/19/24 History billion cell capsule (NewFlora) Rollator walker with brakes #1 ea 05/19/24 08/19/24 Rx acetaminophen 650 mg 650 mg PO Q12H PRN pain 05/19/24 08/19/24 History tablet,extended release (8 Hour Pain Reliever) atorvastatin 40 mg tablet 40 mg PO DAILY HDL #90 tabs 05/19/24 08/19/24 Rx blood pressure monitor (Blood #1 ea 05/19/24 08/19/24 Rx Pressure Kit) loratadine 10 mg tablet (Claritin) 10 mg PO DAILY 05/19/24 08/19/24 History montelukast 10 mg tablet 10 mg PO QHS asthma #90 tabs 06/03/24 08/19/24 Rx (Singulair) pantoprazole 40 mg tablet,delayed 40 mg PO BID #180 tabs 08/07/24 08/19/24 Rx release alprazolam 0.5 mg tablet 0.5 mg PO BID bloating 10 days #20 08/12/24 08/19/24 Rx tabs prednisone 20 mg tablet 20 mg PO QDAY #10 tabs 08/12/24 08/19/24 Rx sertraline 100 mg tablet 100 mg PO DAILY #90 tabs 08/12/24 08/19/24 Rx amlodipine 5 mg tablet 10 mg PO DAILY 08/19/24 08/19/24 History propranolol 120 mg capsule,24 120 mg PO DAILY #90 caps 08/19/24 08/19/24 Rx hr,extended release Have you fallen in the past year?: No PFSH Medical History History of edema Urinary retention Hx of bladder problems Wears glasses Bipolar disorder Arthritis Bladder disease High cholesterol Back pain Gastric reflux Non-smoker CPAP (continuous positive airway pressure) dependence History of echocardiogram History of stress test Stroke/cerebrovascular accident Hx of migraines Hx of emotional problems Hx of chronic arthritis Hx of seasonal allergies Radicular pain in left arm GERD (gastroesophageal reflux disease) Cerebrovascular disease Obesity (BMI 30.0-34.9) Depression Bipolar 1 disorder Hypertension Overactive bladder HLD (hyperlipidemia) HTN (hypertension) Surgical History Hx of surgical procedure History of bladder suspension procedure H/O: hysterectomy Family History Mother Colon cancer CAD (coronary artery disease) Angina at rest Breast cancer Cervical cancer Depression Hypertension Grandmother Diabetes Maternal grandmother CAD (coronary artery disease) Arthritis Heart disease Grandfather CAD (coronary artery disease) Bleeding disorder Father CAD (coronary artery disease) Hypertension Social History household members: none housing: house current occupational status: retired 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 She hasn't done her blood work as previously ordered.??? She would like a new order for a mammogram and bone density.??? She is up to date on her immunizations.??? She (more content not included)... Normal [facility] MR/BMS.BPon 08-12-2024 MR/[place] [address] OFFICE VISIT Date of Service: 08/12/24 MR#: [id number] Acct: [id number] Name: SHIRA SHEN Rep #: [id number] : 1950 Provider: ANGELINA valderrama Age/Sex: 74/F Location: [facility] [place] Status: Signed with Addenda ADDENDUM by Fartun Liriano on 08/12/24 at 1036 Vital Signs 05/14/24 09:56 05/21/24 07:08 08/12/24 09:46 Height 5 ft 4 in 5 ft 4 in 5 ft 4 in BP 183/83 H Blood Pressure Location Rt brachial Position Sitting Pulse 76 Pulse Source Monitor Comment Reports not having BP med yet this date 08/12/24 1145 Date Larissa Fonseca [employer]PER[employer] cc: * Signed Intake Vital Signs 05/14/24 09:56 05/21/24 07:08 08/12/24 09:46 Height 5 ft 4 in 5 ft 4 in 5 ft 4 in BP Intake Visit Reasons: 3mfu Allergies codeine Allergy (Verified 05/21/24 07:10) Other Penicillins Allergy (Verified 05/21/24 07:10) Itching Swkaerm-Ess-Qij Reductase Inhibitor Allergy (Verified 05/21/24 07:10) Unknown Sulfa (Sulfonamide Antibiotics) Allergy (Verified 05/21/24 07:10) Itching Have you fallen in the past year?: No PFSH Medical History History of edema Urinary retention Hx of bladder problems Wears glasses Bipolar disorder Arthritis Bladder disease High cholesterol Back pain Gastric reflux Non-smoker CPAP (continuous positive airway pressure) dependence History of echocardiogram History of stress test Stroke/cerebrovascular accident Hx of migraines Hx of emotional problems Hx of chronic arthritis Hx of seasonal allergies Radicular pain in left arm GERD (gastroesophageal reflux disease) Cerebrovascular disease Obesity (BMI 30.0-34.9) Depression Bipolar 1 disorder Hypertension Overactive bladder HLD (hyperlipidemia) HTN (hypertension) Surgical History Hx of surgical procedure History of bladder suspension procedure H/O: hysterectomy Family History Mother Colon cancer CAD (coronary artery disease) Angina at rest Breast cancer Cervical cancer Depression Hypertension Grandmother Diabetes Maternal grandmother CAD (coronary artery disease) Arthritis Heart disease Grandfather CAD (coronary artery disease) Bleeding disorder Father CAD (coronary artery disease) Hypertension Social History household members: spouse housing: house current occupational status: 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 Has recently moved into an apartment alone and has been doing well with this. Has still been seeing a counselor at [facility] and has been going about 1x per month. Has been doing well with mood and has not been feeling depressed recently. Has had some stress around her son's legal issues and is constantly worrying about him. He has court on September 04 and it seems he is going to spend 3-7 years in senior care for the crimes he committed. Admits to sometimes feeling anxiety but not every day. Admits to anxiety being more situational than anything else. Denies any panic attacks. Denies SI/HI. Sleep has not been good due to having indigestion and feeling like she is unable to sleep through this. Reports she has an appointment with GI to help with resolution of this and hopefully improve sleep. Is still having some difficulties with her ex . Is working on trying to let go of things she cannot control. Previous similar episode: Yes Age of first onset of symptoms: 31-40 years Review of Systems Constitutional Reports: fatigue; Denies: fever(s), chills or change in weight Eyes Denies: change in vision or blurry vision Ears, Nose, Mouth, Throat Denies: throat pain or neck pain Cardiovascular Denies: chest pain, palpitations or dyspnea Respiratory Denies: dyspnea or wheezing Gastrointestinal Reports: heartburn; Denies: abdominal pain, nausea, vomiting, diarrhea or constipation Genitourinary Reports: urinary frequency and urinary urgency; Denies: dysuria Musculoskeletal Denies: back pain or neck pain Integumentary/Breast Denies: rash, pruritus or erythema Neurological Denies: headache(s) Psychiatric Reports: anxiety, (more content not included)... Normal [facility] Inital Evaluation (1) - PTon 06-08-2024 Inital Evaluation (1) - PT [facility] Physical Therapy [facility] [address] [place] [address] / REHABILITATION SERVICES INITIAL EVALUATION MR#: [id number] Acct: [id number] Name: SHIRA SHEN Rep #: [id number] : 1950 74 From: Will Fletcher PT, Cert. MD Pang, OCS Referring DrKeya: ANGELINA Cortez Status: REG R Insurance: [facility] [place] [facility] 07/03/18 MEDICAID Patient's Visit Information Visit Information Visit Information: SHIRA SHEN is a 74 year old F referred to Physical Therapy by ANGELINA Cortez with a diagnosis of UNILATERAL PRIMARY OSTEOARTHITIS. Date of Evaluation: 06/08/24 Physical Therapist: Will Fletcher, PT, Cert MDT, OCS Visit Plan Frequency: 2x /Week Duration: 4 Weeks Plan: PT INTERVENTIONS PROGRESSIVE BALANCE TRAINING ,BLE STRENGTHENING ,FUNCTIONAL STRENGTHENING AND ENDURANCE PROGRAM Subjective Subjective: This 74 y/o female present for physical therapy with right hip pain. 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 Patient c/o leg weakness . Patient was prescribed naproxen . Patient uses walker community distances but uses doesn't use it in house. Patient has had no falls. Patient denies paresthesia/tingling. Patient has difficulty in/out chair. Patient lives alone 1 story home no steps . Patient ahs walk in shower. Patient is able to bathing but difficulty has shower chair and dress self. Patient does cooking. Patient is unable to squat and kneel. Patient condition as well as comorbities impairs function. Patient goals to improve function. SOCIAL: VOCATION: retired Objective Objective: POSTURE: mild forward posture GAIT: reciprocal pattern mild forward posture with fww NEURO: denies paresthesia/tingling AROM: supine knee flexion 0-120 degrees ,hip supine flexion 100 degrees ,hip abduction 35 degrees MMT: quads/hams 4/5 ,hip 4-/5 ,ankle 4/5 BALANCE: fair+ STAIRS: one step at time with rails Special Tests R Hip Scour: Negative R Hip Trendelenberg - Glut Medius: Negative Balance/Special Test Scores CATSIB Score (Max score 120 seconds): 70 Lower Extremity Functional Score: 28 Goals Goal 1:: Patient to be I with HEP Goal Time Frame: 4-6 Weeks Goal 2:: Patient to improve LFES score by 5-10 # to improve function Goal Time Frame: 4-6 Weeks Goal 3:: Patient to improve CATSIBE by 5-10 # to improve gait and blance Goal Time Frame: 4-6 Weeks Goal 4:: Patient to demonstrate 50% improvement with increase function and gait Goal Time Frame: 4-6 Weeks Rehabilitation Potential Physical Therapy Diagnosis: Patient has weakness ,decrease gait , with comorbities with CVA thus benefit from skilled PT Rehabilitation Potential: Good Anticipated Interventions Patient/Client Instruction: Educate patient on: Condition and Plan of Care For the Purpose of:: To decrease pain, To increase ROM, To improve ability to perform ADL's, To increase tolerance to activity/condition/position, To improve ability of physical actions for home/community/work/leisure, To improve gait and locomotor functions, To increase flexibility/ROM, To improve endurance, To improve balance and To improve tolerance to ADL's Therapeutic Exercise to Include: Strength training, Endurance training, Balance training and Gait and locomotor training Comment: BLE QUADS/HAMS/HIP For the Purpose of:: To decrease pain, To improve muscle performance and motor function, To increase tolerance to activity/condition/position, To improve ability of physical actions for home/community/work/leisure, To improve health of tissue, To decrease soft tissue restriction, To increase flexibility/ROM, To improve balance and To improve tolerance to ADL's Text: Thank you for the opportunity to evaluate your patient. For Medicare and Medicare HMO plans, please review the plan of care and approve it. It will need to be FAXED BACK to us at [phone] for Medicare purposes. For Medicare only, by signing this I certify the plan of care. Please let me know if there are questions or concerns regarding this plan of care. Physician Signature: _Date: 06/08/24 1301 CC: ANGELINA Junior; Dr. Nimisha Olvera MD FAVIO Signed Normal [facility] ABD Limited w/ Elastographyo n 06-01-2024 ABD Limited w/ Elastography [facility] Imaging Services [address] [place] [address] ABD Limited w/ Elastography MR#: [id number] Acct: [id number] Name: SHIRA SHEN Rep #: [id number] : 1950 F 74 From: Dejan masters MD PCP: Dr. Nimisha Olvera MD Status: REG CLI Study: ABD Limited w/ Elastography Date of Exam: 05/05 Exam# [id number] Ordering Dr: Perla Mclean [id number] STUDY: ABDOMINAL ULTRASOUND - RIGHT UPPER QUADRANT; ELASTOGRAPHY REASON FOR VISIT: Female, 74 years old. Epigastric pain. TECHNIQUE: Ultrasound evaluation of the right upper quadrant was performed with real-time and static lopez-scale imaging. Point quantification shear wave elastography was performed (Hometapper). TECHNICAL QUALITY: Adequate. COMPARISON: Comparison is made with prior CT scan of the abdomen and pelvis dated March 30, 2024. FINDINGS: Liver: The liver measures 17.9 cm. There is increased echogenicity consistent with fatty infiltration. The bile ducts are within normal limits. There is hepatic color flow. The direction of portal flow is hepatopetal. There is no demonstrated mass lesion. Median liver stiffness measured 7 kPa. Gallbladder: The patient is status post cholecystectomy. Common Bile Duct (C.B.D.): The common bile duct measures 6.3 mm. Pancreas: There is normal echogenicity of the visualized pancreas. There is no demonstrated pancreatic mass or cyst. Right Kidney: Normal size of the right kidney. The right kidney measures 12.4 cm x 4.7 cm x 5.4 cm. Normal renal cortex. The right cortex measures 1.5 cm. There is no demonstrated renal mass or cyst. There is no right hydronephrosis. US/ABD Limited w/ Elastography IMPRESSION: 1. Liver stiffness measures 7 kPa compatible with F2-F3 (Mild to moderate liver fibrosis) Metavir score. 2. Status post cholecystectomy. 3. Fatty infiltration of the liver. Electronically Signed: Dejan Garcia MD at 10:40 EDT , CC: Dr. Nimisha Olvera MD; SHARDA Mccann Bakeshop Cleaner: Signed Normal [facility] EGD Reporton 05-21-2024 EGD Report [facility] Medical Records Department [address] [place] [address] EGD Report MR#: [id number] Acct: [id number] Name: SHIRA SHEN Rep #: [id number] : 1950 74 From: Blayne Faustin DO PCP: Dr. Nimisha Olvera MD Status:[employer] Patient Name: Shira Shen Procedure Date: 05/21/2024 7:59 AM Date of : 1950 Age: 74 Procedure: Upper GI endoscopy Indications: Epigastric abdominal pain, Functional Dyspepsia, Failure to respond to medical treatment Providers: Blayne Faustin DO Referring MD: Nimisha Olvera Md Medicines: Monitored Anesthesia Care Patient Profile: This is a 74 year old female. Refer to note in patient chart for documentation of history and physical. Patient has symptoms of chronic epigastric abdominal pain and chronic dyspepsia. Complications: No immediate complications. Procedure: Pre-Anesthesia Assessment: - Prior to the procedure, a History and Physical was performed, and patient medications and allergies were reviewed. The patient is competent. The risks and benefits of the procedure and the sedation options and risks were discussed with the patient. All questions were answered and informed consent was obtained. Patient identification and proposed procedure were verified by the physician in the pre-procedure area. Mental Status Examination: alert and oriented. Airway Examination: normal oropharyngeal airway and neck mobility. Respiratory Examination: clear to auscultation. CV Examination: normal. Prophylactic Antibiotics: The patient does not require prophylactic antibiotics. Prior Anticoagulants: The patient has taken no anticoagulant or antiplatelet agents except for NSAID medication. ASA Grade Assessment: II - A patient with mild systemic disease. After reviewing the risks and benefits, the patient was deemed in satisfactory condition to undergo the procedure. The anesthesia plan was to use monitored anesthesia care (MAC). Immediately prior to administration of medications, the patient was re-assessed for adequacy to receive sedatives. The heart rate, respiratory rate, oxygen saturations, blood pressure, adequacy of pulmonary ventilation, and response to care were monitored throughout the procedure. The physical status of the patient was re-assessed after the procedure. After obtaining informed consent, the endoscope was passed under direct vision. Throughout the procedure, the patient's blood pressure, pulse, and oxygen saturations were monitored continuously. The Endoscope was introduced through the mouth, and advanced to the second part of duodenum. The upper GI endoscopy was accomplished without difficulty. The patient tolerated the procedure well. Scope In: 8:10:11 AM Scope Out: 8:13:27 AM Total Procedure Duration Time 0 hours 3 minutes 16 seconds Findings: The examined esophagus was normal. Localized moderately erythematous mucosa without bleeding was found in the gastric antrum and at the pylorus. Biopsies were taken with a cold forceps for histology. Verification of patient identification for the specimen was done. Estimated blood loss was minimal. Biopsies were taken with a cold forceps for Helicobacter pylori testing. Verification of patient identification for the specimen was done. Estimated blood loss was minimal. No gross lesions were noted in the first portion of the duodenum. Impression: - Normal esophagus. - Erythematous mucosa in the antrum and pylorus. Biopsied. - No gross lesions in the first portion of the duodenum. Recommendation: - Discharge patient to home. - Resume previous diet. - Continue present medications. - Await pathology results. - Gastric emptying study - HIDA scan to look for signs of sphincter of Oddi dysfunction Procedure Code(s): --- Professional --- 51694, Esophagogastroduodenoscopy, flexible, transoral; with biopsy, single or multiple CPT copyright 2021 [employer]. All rights reserved. The codes documented in this report are preliminary and upon die lay out worker review may be revised to meet current compliance requirements. Blayne Faustin DO 05/21/2024 8:21:41 AM This report has been signed electronically. Number of Addenda: 0 Note Initiated On: 05/21/2024 7:59 AM 05/21/24820 Date Blayne Novak Signature: Date (if indicated) CC: Dr. Nimisha Olvera MD; Blayne Faustin, DO Date Dictated: 05/21/24 0759 Date Transcribed: Bakeshop Cleaner: MARCI Signed Normal [facility] H Pylori (initial)on H Pylori (initial) --------- ----- Patient Age/Sex Location Account Attending Physician ----- SHIRA SHEN 74/F EN [id number] Blayne Faustin, DO ----- Specimen: [id number] Received: 05/21/24-1213 Status: CESAR Spaulding: [id number] Spec Type: IMMUNO Subm Dr: Blayne Faustin, PHYSICIAN INSTITUTION [address] [address] SPECIMEN INFORMATION: Tissue Source: Gastric antrum biopsy Clinical Info: Epigastric abdominal pain Specimen Number: [id number] CPT code: 02254 METHODOLOGY: Deparaffinized sections of prefer/formalin-fixed tissue or PAP/DQ stained slides are incubated with monoclonal/polyclonal antibodies/oligonucleotide probes. Localization is made via biotin free immunoperoxidase method. Appropriate controls are performed and reacted as expected. Results on target cell population are indicated in the following table: RESULTS: ANTIBODY / CLONE RESULT H Pylori (polyclonal) negative These tests were developed and their performance characteristics determined by [facility]. They may not have been cleared or approved by the U.S. Food and Drug Administration. The FDA has determined that such clearance or approval is not necessary. The above immunohistochemical/dualISH markers are ordered and reviewed by the Pathologist. INTERPRETATION: Gastric antrum, biopsy: Negative for Helicobacter pylori organisms. 05/22/2024 Signed (signature on file) Dr. Fabian Esquivel, 05/22/24 1311 ----- Normal [facility] Comment on above: Performed By: #### L 300.4310, L100.0100, L300.3900, L3400.0100, M100.651, BTSPAT, L500.2500, L501.9985 #### [facility] Laboratory [address] [facility] [place], [place], [address] MR/POSTOP.Brianna 05-21-2024 MR/POSTOP.MARTIN [facility] Medical Records Department [address] [place] [address] Anesthesia Postop Eval I 05/21/24820 MR#: [id number] Acct: [id number] Name: SHIRA SHEN Rep #: [id number] : 1950 74 From: Jarrod Liriano PCP: Dr. Nimisha Olvera MD Status:REG [facility] Y Race: C Location: [place] [address] Anesthesia: Postop Eval I Current Vital Signs Temperature: 97.8 F Pulse Rate: 68 Blood Pressure: 115/65 Respiratory Rate: 16 Pulse Ox: 96 Oxygen Delivery Method: Room Air Assessment Airway patent: Yes Spontaneous unlabored respirations: Yes Mental status: Awake and Calm nausea: No Vomiting: No Anesthesia Complication: No Fluid Hydration Crystalloid volume administer (ml): 400 Total IV fluid infused: 400 Progress Note Anesthesia document: Postop Eval 1 completed: Yes 05/21/24822 Date Jarrod Trent Signature: Date CC: Signed Normal [facility] MR/[id number] 05-21-2024 MR/POSTOPAN2 [facility] Medical Records Department [address] [place] [address] Anesthesia Postop Eval II 05/21/24902 MR#: [id number] Acct: [id number] Name: SHIRA SHEN Rep #: [id number] : 1950 74 From: Barry Harkins MD PCP: Dr. Nimisha Olvera MD Status:REG SD Y Race: C Location: [place] [address] Anesthesia Postop Eval I Sum Postop Eval Completion status Anesthesia document: Postop Eval 1 completed: Yes Anesthesia Postop Eval I Summary Anesthesia Postop Eval I Summary: Anesthesia Postop Eval I: Assessment Summary Airway patent Yes 05/21/24 08:23 [email or web address] Spontaneous unlabored Yes 05/21/24 08:23 [email or web address] respirations Mental status Awake,Calm 05/21/24 08:23 [email or web address] nausea No 05/21/24 08:23 [email or web address] Vomiting No 05/21/24 08:23 [email or web address] Anesthesia Postop Eval I: Fluid Summary Crystalloid volume administer 400 05/21/24 08:23 [email or web address] (ml) Colloids volume administered ( ml) Blood Product volume administered (ml) Total IV fluid infused 400 05/21/24 08:23 [email or web address] Anesthesia Postop Eval I: Summary Notes Anesthesia Complication No 05/21/24 08:23 [email or web address] Anesthesia Complication Comment: Post-operative progress note Anesthesia: Postop Eval II Evaluation Mental status: Awake Pain Level: 0 nausea: No Vomiting: No 05/21/24902 Date Barry Reyeser Signature: Date CC: Signed Normal [facility] Surgery Specimen Level Александр 05-21-2024 Surgery Specimen Level IV ----- Patient Age/Sex Location Account Attending Physician ----- SHIRA SHEN 74/F EN [id number] Blayne Faustin DO ----- Specimen: [id number] Received: 05/21/24 Status: CESAR Dhaliwal Num: [id number] Spec Type: EGD BIOPSY Subm Dr: Blayne Faustin DO HEADER OPERATION: EGD with biopsies PRE-OP DIAGNOSIS: Epigastric abdominal pain TISSUE SUBMITTED: Gastric antrum ----- MICROSCOPIC DIAGNOSIS Gastric antrum, biopsy: Chronic gastritis. Focal mucosal ulceration with associated mild acute inflammation. See comment. Keya 05/22/2024 COMMENT The results of immunohistochemistry for Helicobacter pylori will be reported separately ([id number]). MICROSCOPIC DESCRIPTION Slides are reviewed. GROSS DESCRIPTION Received in fixative is one container labeled with the patient's name and designated Gastric antrum. The specimen consists of multiple irregular fragments of light martin soft tissue that in aggregate measure 1.0 x 0.3 x 0.1 cm. The specimen is totally submitted in one cassette. . 05/21/2024 TC:2 CPT:32494 ----- Patient Age/Sex Location Account Attending Physician ----- SHIRA SHEN / EN [id number] Blayne Faustin DO ----- Signed (signature on file) Dr. Fabian Esquivel DO 05/22/24 1216 ----- Normal [facility] Comment on above: Performed By: #### P SUIV ####[facility] [id number] [place], [place], [address] Internal Medicine Office Vis itomichelet 05-19-2024 Internal Medicine Office Visit [facility] [address] [place] [address] [address] [place], [place] [address] OFFICE VISIT Date of Service: 05/19/24 MR#: [id number] Acct: [id number] Name: SHIRA SHEN Rep #: [id number] : 1950 Provider: ANGELINA meyer Age/Sex: 74/F Location: [facility] Status: Signed with Addenda ADDENDUM by ANGELINA Junior on 06/01/24 at 1122 HPI Details: SHIRA SHEN, is a 74 F who presents to the office today for Assessment and Plan Assessment and Plan (1) Chronic pain of right lower extremity: Status: Chronic (2) Essential hypertension: Status: Acute (3) Mixed hyperlipidemia: Status: Acute (4) Epigastric abdominal pain: Status: Acute (5) Ischemic cerebrovascular accident (CVA): Status: Acute Comment: Left thalamocapsular infarct on MRI (6) Prediabetes: Status: Acute (7) JANE (obstructive sleep apnea): Status: Acute Plan: due to mask ineffectiveness, repeat attended sleep study with pap titration needed due to history of cva (8) Overactive bladder: Status: Acute (9) Bipolar 1 disorder: Status: Acute (10) Influenza vaccination administered at current visit: Status: Acute Orders: Orders Hemoglobin A1c 05/19/24 R73.03 - Prediabetes Lipid Profile 05/19/24 E78.2 - Mixed hyperlipidemia Unattended Sleep Study 05/19/24 G47.33 - Obstructive sleep apnea (adult) (pediatric) Influenza Immunization 05/19/24 Z23 - Encounter for immunization Referrals Physical Therapy Referral M16.11 - Unilateral primary osteoarthritis, right hip Medications: New blood pressure monitor (Blood Pressure Kit) As directed 1 ea 0RF I10 - Essential (primary) hypertension [Rollator walker with brakes] As directed 1 ea 0RF M16.11 - Unilateral primary osteoarthritis, right hip Refilled atorvastatin 40 mg PO DAILY 90 tabs 1RF HDL 06/01/24 1122 Date Petra Junior cc: * Signed Intake Vital Signs 11/20/23 09:38 05/14/24 09:56 05/19/24 09:12 Height 5 ft 4 in 5 ft 4 in 5 ft 4 in Weight: 192 lb 4 oz BMI 33.0 BP 128/80 H Blood Pressure Location Lt brachial Position Sitting Respiration 16 Pulse 79 Pulse Source Monitor Temp 98.5 F Temp Source Temporal Pulse Oximetry (%) 97 Oxygen Delivery Method room air Intake Visit Reasons: 6 M FU Chief Complaint: 6m f/u Brooch Maker Novelty Required: No Accompanied by: Self Is patient in pain?: Yes (gerd sx/ lower abd ) Pain scale (1-10): 10 Allergies codeine Allergy (Verified 05/19/24 14:12) Other Penicillins Allergy (Verified 05/19/24 14:12) Itching Lzhchun-DHM-HnA Reductase Inhibitor (Rtiajjb-Ble-Mbx Reductase Inhibitor) Allergy (Verified 05/19/24 14:12) Unknown Sulfa (Sulfonamide Antibiotics) Allergy (Verified 05/19/24 14:12) Itching Medications ???Medication ???Instructions ???Recorded ???Confirmed ???Type multivitamin (Daily Multiple 1 ea PO DAILY supplement 08/22/15 05/19/24 History tablet) aspirin 81 mg tablet 81 mg PO DAILY anti-platelet 04/03/22 05/19/24 History handicap placard #1 ea 11/20/23 05/19/24 Rx montelukast 10 mg tablet 10 mg PO QHS asthma #90 tabs 12/09/23 05/19/24 Rx (Singulair) propranolol 120 mg capsule,24 120 mg PO DAILY #90 caps 02/12/24 05/19/24 Rx hr,extended release amlodipine 5 mg tablet 5 mg PO DAILY #90 TABLETS 03/25/24 05/19/24 Rx naproxen sodium 220 mg capsule 220 mg PO BID 04/09/24 05/19/24 History lactulose 10 gram/15 mL oral See Rx Instructions PO BID PRN 04/21/24 05/19/24 Rx solution constipation #473 mL esomeprazole magnesium 20 mg 20 mg PO DAILY 04/28/24 05/19/24 History capsule,delayed release (Nexium) sertraline 100 mg tablet 100 mg PO DAILY #90 tabs 04/28/24 05/19/24 Rx Lactobacillus acidophilus 10 100 mmu cells PO DAILY 05/19/24 05/19/24 History billion cell capsule (NewFlora) Rollator walker with brakes #1 ea 05/19/24 05/19/24 Rx acetaminophen 650 mg 650 mg PO Q12H PRN pain 05/19/24 05/19/24 History tablet,extended release (8 Hour Pain Reliever) atorvastatin 40 mg tablet 40 mg PO DAILY HDL #90 tabs 05/19/24 05/19/24 Rx blood pressure monitor (Blood #1 ea 05/19/24 05/19/24 Rx Pressure Kit) loratadine 10 mg tablet (Claritin) 10 mg PO DAILY 05/19/24 05/19/24 History Have you fallen in the past year?: No PFSH Medical History (Updated 05/19/24 @ 17:26 by ANGELINA Cortez) History of edema Urinary retention Hx of bladder problems Wears glasses Bipolar disorder Arthritis Bladder disease High cholesterol Back pain Gastric reflux Non-smoker CPAP (continuous positive airway pressure) dependence History of echocardiogram History of stress test Stroke/cerebrovascular accident Hx of migraines Hx of emotional problems Hx of chronic arthritis Hx of seasonal allergies Radicular (more content not included)... Normal [facility] MR/BMS.BPon 05-14-2024 MR/BMS.BP [facility] [address] [place] [address], [address] [place] [address] OFFICE VISIT Date of Service: 05/14/24 MR#: [id number] Acct: [id number] Name: SHIRA SHEN Rep #: [id number] : 1950 Provider: ANGELINA valderrama Age/Sex: 74/F Location: [facility] Status: Signed Intake Vital Signs 02/12/24 10:39 04/09/24 13:42 05/14/24 09:56 Height 5 ft 4 in 5 ft 4 in 5 ft 4 in Weight: 185 lb BMI 31.7 BP 178/70 H Respiration 20 H Pulse 72 Pulse Oximetry (%) 97 BP Intake Visit Reasons: 3 M FU Accompanied by: Self Allergies codeine Allergy (Verified 05/14/24 09:58) Other Penicillins Allergy (Verified 05/14/24 09:58) Itching Nvzxzyx-MQJ-YrN Reductase Inhibitor (Agisezi-Rfc-Har Reductase Inhibitor) Allergy (Verified 05/14/24 09:58) Unknown Sulfa (Sulfonamide Antibiotics) Allergy (Verified 05/14/24 09:58) Itching Medications ???Medication ???Instructions ???Recorded ???Confirmed ???Type multivitamin (Daily Multiple 1 ea PO DAILY supplement 08/22/15 05/14/24 History tablet) acetaminophen 325 mg tablet 1,000 mg PO Q6H PRN Pain (Scale 04/03/22 05/14/24 History (Tylenol) Score 1-10) aspirin 81 mg tablet 81 mg PO DAILY anti-platelet 04/03/22 05/14/24 History atorvastatin 40 mg tablet 40 mg PO DAILY HDL #90 tabs 11/20/23 05/14/24 Rx handicap placard #1 ea 11/20/23 05/14/24 Rx montelukast 10 mg tablet 10 mg PO QHS asthma #90 tabs 12/09/23 05/14/24 Rx (Singulair) propranolol 120 mg capsule,24 120 mg PO DAILY #90 caps 02/12/24 05/14/24 Rx hr,extended release amlodipine 5 mg tablet 5 mg PO DAILY #90 TABLETS 03/25/24 05/14/24 Rx naproxen sodium 220 mg capsule 220 mg PO BID 04/09/24 05/14/24 History sucralfate 100 mg/mL oral 10 ml PO .QID #1,000 mL 04/11/24 05/14/24 Rx suspension (Carafate) lactulose 10 gram/15 mL oral See Rx Instructions PO BID PRN 04/21/24 05/14/24 Rx solution constipation #473 mL esomeprazole magnesium 20 mg 20 mg PO DAILY 04/28/24 05/14/24 History capsule,delayed release (Nexium) sertraline 100 mg tablet 100 mg PO DAILY #90 tabs 04/28/24 05/14/24 Rx Have you fallen in the past year?: No PFSH Medical History Urinary retention Hx of bladder problems Wears glasses Bipolar disorder Arthritis Bladder disease High cholesterol Back pain Gastric reflux Non-smoker CPAP (continuous positive airway pressure) dependence History of echocardiogram History of stress test Stroke/cerebrovascular accident Hx of migraines Hx of emotional problems Hx of chronic arthritis Hx of seasonal allergies Radicular pain in left arm GERD (gastroesophageal reflux disease) Cerebrovascular disease Obesity (BMI 30.0-34.9) Depression Bipolar 1 disorder Hypertension Overactive bladder HLD (hyperlipidemia) HTN (hypertension) Surgical History History of bladder suspension procedure H/O: hysterectomy Family History Mother Colon cancer CAD (coronary artery disease) Angina at rest Breast cancer Cervical cancer Depression Hypertension Grandmother Diabetes Maternal grandmother CAD (coronary artery disease) Arthritis Heart disease Grandfather CAD (coronary artery disease) Bleeding disorder Father CAD (coronary artery disease) Hypertension Social History household members: spouse housing: house current occupational status: retired 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 Patient reports that her son is in penitentiary currently and has been since the end of December and will be going to court for this in the beginning of June. Does report he also has bipolar disorder and is struggling with mental health which is weighing on her. Has been going to [facility] for counseling with Dheeraj and the patient decided that writing a letter to him would be beneficial. Does report receiving a lot of support from the father of her son. Has been feeling well and denies feeling increased depression. Does still have low days but they are much less frequent. Does use prayer to help with her mental health. Denies SI/HI. Is trying to find an apartment to live in as her ex is wanting to sell the home she is living in. Is going to have a scope done due to hav (more content not included)... Normal [facility] Stress Reporton 05-05-2024 Stress Report [facility] Cardiovascular Services [address] [place] [address] MR#: [id number] Acct: [id number] Name: SHIRA SHEN Rep #: [id number] : 1950 74 From: Darryl Villeda MD Primary Care: Dr. Nimisha Olvera MD Status: REG CLI Referring Dr: Geovanny Taylor Sex: F C Stress Test Report Pharmacologic myocardial perfusion stress test. 74-year-old lady with a history of epigastric pain Resting EKG demonstrates sinus bradycardia with a rate of 59 bpm. Resting blood pressure is 144/82 mmHg. 0.4 mg of regadenoson was infused per usual protocol followed by rapid intravenous saline flush injection. Continuous EKG monitoring was performed. The maximum heart rate was 72 bpm which was 48% of max impacted heart rate the maximum workload was 1 metabolic equivalent. At rest there were no ST or T wave changes noted to suggest ischemia and at peak infusion nonspecific ST changes were noted which did not meet the criteria for ischemia. No clinical angina is noted. The final blood pressure was 122/74 mmHg. Myocardial perfusion protocol. 11.7 mCi of technetium 99m sestamibi was injected at rest. 0.4 mg of regadenoson was infused per usual protocol. At peak infusion 34.6 mCi of technetium 99m sestamibi was injected stress images were obtained stress and rest images were reconstructed and compared in the short axis vertical long and horizontal long axis. Gated images were also obtained. Perfusion SPECT analysis: Review of the stress images demonstrate normal uptake of tracer noted in all areas of the myocardium. The resting images similar demonstrated normal uptake of tracer noted in all areas of the myocardium. No areas of reversibility are noted to suggest ischemia and no previous infarct is noted. Gated SPECT analysis: The gated ejection fraction is 77%. Conclusion: Normal pharmacologic myocardial perfusion stress test. Preserved ejection fraction. 05/05/24 1022 Date Darryl Villeda MD CC: Dr. Nimisha Olvera MD; SHARDA Marcum Date Dictated: 05/05/24 1020 Date Transcribed: 05/05/24 102 Bakeshop Cleaner: CO Signed Normal [facility] Anti-Parietal Cell AB, QNon 05-01-2024 ANTIPARIET CELL 12.9 Units Normal 0.0-20.0 [facility] Comment on above: Result Comment: Nega tive 0.0 - 20.0 Equivocal 20.1 - 24.9 Positive >24.9 Parietal Cell Antibodies are found in 90% of patients with pernicious anemia and 30% of first degree relatives with pernicious anemia. Performed at: - [facility] [id number] Risk Professional: Tina Bell MD, Phone: [phone] Performed at: - [facility] [id number] [place], [place] [id number] Risk Professional: Carlyle Trujillo PhD, Phone: [phone] Performed By: #### L 300.4310, L100.0100, L300.3900, L3400.0100, M100.651, BTSPAT, L500.2500, L501.9985 #### [facility] Laboratory [address] [place], [address] Gastrin, Serumon 05-01-2024 GASTRIN 63 pg/mL Normal 0-115 [facility] Comment on above: Result Comment: Siem [facility] [employer] 2000 Immunochemiluminometric assay (ICMA) Values obtained with different assay methods or kits cannot be used interchangeably. Results cannot be interpreted as absolute evidence of the presence or absence of malignant disease. Performed By: #### L 500.4050, L3410.1000, L3300.1800, L100.0100 ####[facility] [address] [place], [address] CBC W/Diff, Automatedon 04-03 Absolute Lymph 2.51 X10 3/uL Normal 0.83-4.51 [facility] Comment on above: Performed By: #### L 500.4050, L3410.1000, L3300.1800, L100.0100 ####[facility] [address] [place], [address] Absolute Neut 3.4 X10 3/uL Normal 2.0-7.7 [facility] Comment on above: Performed By: #### L 500.4050, L3410.1000, L3300.1800, L100.0100 ####[facility] [address] [place], [address] Basophils/100 WBC (Bld) 0.7 % Normal 0-1 [facility] Comment on above: Performed By: #### L 500.4050, L3410.1000, L3300.1800, L100.0100 ####[facility] [address] [place], [address] Eosinophils/100 WBC (Bld) 2.3 % Normal 0-5 [facility] Comment on above: Performed By: #### L 500.4050, L3410.1000, L3300.1800, L100.0100 ####[facility] [address] [place], [address] Erythrocyte distribution width (RBC) [Ratio] 13.1 % Normal 11.6-14.6 [facility] Comment on above: Performed By: #### L 500.4050, L3410.1000, L3300.1800, L100.0100 ####[facility] [address] [place], [address] Hematocrit (Bld) [Volume fraction] 38.2 % Normal 37-47 [facility] Comment on above: Performed By: #### L 500.4050, L3410.1000, L3300.1800, L100.0100 ####[facility] [address] [place], [address] Hemoglobin (Bld) [Mass/Vol] 12.0 g/dL Normal 12.0-15.0 [facility] Comment on above: Performed By: #### L 500.4050, L3410.1000, L3300.1800, L100.0100 ####[facility] [address] [place], [address] IG% 0.400 Normal 0.0-0.9 [facility] Comment on above: Result Comment: IG% - Immature Granulocytes (promyelocytes, myelocytes and metamyelocytes) > 1% indicates that a LEFT SHIFT is Present. Performed By: #### L 500.4050, L3410.1000, L3300.1800, L100.0100 ####[facility] [address] [place], [address] Lymphocytes/100 WBC (Bld) 36.4 % Normal 19-41 [facility] Comment on above: Performed By: #### L 500.4050, L3410.1000, L3300.1800, L100.0100 ####[facility] [address] [place], [address] MCH (RBC) [Entitic mass] 28.2 pg Normal 27.0-32.0 [facility] Comment on above: Performed By: #### L 500.4050, L3410.1000, L3300.1800, L100.0100 ####[facility] [address] [place], [address] MCHC (RBC) [Mass/Vol] 31.4 g/dL Low 32-36 [facility] Comment on above: Performed By: #### L 500.4050, L3410.1000, L3300.1800, L100.0100 ####[facility] [address] [place], [address] MCV (RBC) [Entitic vol] 89.7 fL Normal 81-99 [facility] Comment on above: Performed By: #### L 500.4050, L3410.1000, L3300.1800, L100.0100 ####[facility] [address] [place], [address] Monocytes/100 WBC (Bld) 10.9 % High 0-10 [facility] Comment on above: Performed By: #### L 500.4050, L3410.1000, L3300.1800, L100.0100 ####[facility] [address] [place], [address] Neutrophils/100 WBC (Bld) 49.3 % Normal 47-70 [facility] Comment on above: Performed By: #### L 500.4050, L3410.1000, L3300.1800, L100.0100 ####[facility] [address] [place], [address] Nucleated RBC (Bld) [#/Vol] 0 10*3/uL Normal 0-5 [facility] Comment on above: Performed By: #### L 500.4050, L3410.1000, L3300.1800, L100.0100 ####[facility] [address] [place], [address] Platelet mean volume (Bld) [Entitic vol] 11.7 fL Normal 6.2-12.0 [facility] Comment on above: Performed By: #### L 500.4050, L3410.1000, L3300.1800, L100.0100 ####[facility] [address] [place], [address] Platelets (Bld) [#/Vol] 167 10*3/uL Normal 150-450 [facility] Comment on above: Performed By: #### L 500.4050, L3410.1000, L3300.1800, L100.0100 ####[facility] [address] [place], [address] RBC (Bld) [#/Vol] 4.26 10*6/uL Normal 4.2-5.4 [facility] Comment on above: Performed By: #### L 500.4050, L3410.1000, L3300.1800, L100.0100 ####[facility] [address] [place], [address] RDW SD 42.9 fl Normal 35.1-43.9 [facility] Comment on above: Performed By: #### L 500.4050, L3410.1000, L3300.1800, L100.0100 ####[facility] [address] [place], [address] WBC (Bld) [#/Vol] 6.9 10*3/uL Normal 4.4-11.0 [facility] Comment on above: Performed By: #### L 500.4050, L3410.1000, L3300.1800, L100.0100 ####[facility] [address] [place], [address] Comprehensive Metabolic Prof ilon 04-28-2024 Albumin [Mass/Vol] 3.9 g/dL Normal 3.2-5.0 [facility] Comment on above: Performed By: #### L 500.4050, L3410.1000, L3300.1800, L100.0100 ####[facility] [address] [place], [address] Albumin/Globulin [Mass ratio] 1.0 {ratio} Normal 0.9-2.4 [facility] Comment on above: Performed By: #### L 500.4050, L3410.1000, L3300.1800, L100.0100 ####[facility] [address] [place], [address] ALK P 91 U/L Normal 45-117 [facility] Comment on above: Performed By: #### L 500.4050, L3410.1000, L3300.1800, L100.0100 ####[facility] [address] [place], [address] ALT [Catalytic activity/Vol] 55 U/L Normal 13-56 [facility] Comment on above: Performed By: #### L 500.4050, L3410.1000, L3300.1800, L100.0100 ####[facility] [address] [place], [address] AST [Catalytic activity/Vol] 61 U/L High 15-37 [facility] Comment on above: Performed By: #### L 500.4050, L3410.1000, L3300.1800, L100.0100 ####[facility] [address] [place], [address] Bilirubin [Mass/Vol] 0.30 mg/dL Normal 0.20-1.00 [facility] Comment on above: Result Comment: For patients on eltrombopag therapy, use of Dimension Streetman TBIL is not recommended. Performed By: #### L 500.4050, L3410.1000, L3300.1800, L100.0100 ####[facility] [address] [place], [address] BUN/CRE 21.8 RATIO High 10-20 [facility] Comment on above: Performed By: #### L 500.4050, L3410.1000, L3300.1800, L100.0100 ####[facility] [address] [place], [address] CA,Total 10.4 mg/dL High 8.5-10.1 [facility] Comment on above: Performed By: #### L 500.4050, L3410.1000, L3300.1800, L100.0100 ####[facility] [address] [place], [address] Chloride [Moles/Vol] 105 mmol/L Normal 98-107 [facility] Comment on above: Performed By: #### L 500.4050, L3410.1000, L3300.1800, L100.0100 ####[facility] [address] [place], [address] CO2 [Moles/Vol] 28.0 mmol/L Normal 21.0-32.0 [facility] Comment on above: Performed By: #### L 500.4050, L3410.1000, L3300.1800, L100.0100 ####[facility] [address] [place], [address] Creatinine [Mass/Vol] 0.83 mg/dL Normal 0.55-1.02 [facility] Comment on above: Result Comment: The validity of the calculated GFR GFRAA in patients over 70 years has not been determined. Clinical correlation is essential. Performed By: #### L 500.4050, L3410.1000, L3300.1800, L100.0100 ####[facility] [address] [place], [address] EST GFR - AA 87 mL/min Normal >60 [facility] Comment on above: Result Comment: Afri can [place] GFR Calc Performed By: #### L 500.4050, L3410.1000, L3300.1800, L100.0100 ####[facility] [address] [place], [address] GAP 8 Normal 5-15 [facility] Comment on above: Performed By: #### L 500.4050, L3410.1000, L3300.1800, L100.0100 ####[facility] [address] [place], [address] GFR/1.73 sq M.predicted among non-blacks MDRD (S/P/Bld) [Vol rate/Area] 72 mL/min/{1.73_m2} Normal >60 [facility] Comment on above: Result Comment: Non- GFR Calc Performed By: #### L 500.4050, L3410.1000, L3300.1800, L100.0100 ####[facility] [address] [place], [address] Globulin (S) [Mass/Vol] 3.9 g/dL Normal 2.2-4.2 [facility] Comment on above: Performed By: #### L 500.4050, L3410.1000, L3300.1800, L100.0100 ####[facility] [address] [place], [address] Glucose [Mass/Vol] 110 mg/dL High 74-106 [facility] Comment on above: Result Comment: Fast ing Glucose result from 100 to 125 mg/dL suggests IMPAIRED HOMEOSTASIS per A.D.A. criteria. Performed By: #### L 500.4050, L3410.1000, L3300.1800, L100.0100 ####[facility] [address] [place], [address] Potassium [Moles/Vol] 3.9 mmol/L Normal 3.5-5.1 [facility] Comment on above: Performed By: #### L 500.4050, L3410.1000, L3300.1800, L100.0100 ####[facility] [address] [place], [address] Sodium [Moles/Vol] 141 mmol/L Normal 136-145 [facility] Comment on above: Performed By: #### L 500.4050, L3410.1000, L3300.1800, L100.0100 ####[facility] [address] [place], [address] T PROT 7.8 g/dL Normal 6.4-8.2 [facility] Comment on above: Performed By: #### L 500.4050, L3410.1000, L3300.1800, L100.0100 ####[facility] [address] [place], [address] Urea nitrogen [Mass/Vol] 18 mg/dL Normal 7-18 [facility] Comment on above: Performed By: #### L 500.4050, L3410.1000, L3300.1800, L100.0100 ####[facility] [address] [place], [address] Gastroenterology Visit Repor ton 04-28-2024 Gastroenterology Visit Report [facility] [address] [place] [address] OFFICE VISIT Date of Service: 04/28/24 MR#: [id number] Acct: [id number] Name: SHIRA SHEN #: [id number] : 1950 Provider: SHARDA Mccann Age/Sex: 73/F Location: [facility] Status: Signed Intake Vital Signs 04/09/24 13:42 Height 5 ft 4 in Intake Visit Reasons: gastric ulcer Chief Complaint: ACUTE-[facility] ER FU Allergies codeine Allergy (Verified 04/09/24 13:43) Other Penicillins Allergy (Verified 04/09/24 13:43) Itching Iwzhkwa-FES-XeG Reductase Inhibitor (Wunysfn-Tns-Tfz Reductase Inhibitor) Allergy (Verified 04/09/24 13:43) Unknown Sulfa (Sulfonamide Antibiotics) Allergy (Verified 04/09/24 13:43) Itching Medications ???Medication ???Instructions ???Recorded ???Confirmed ???Type multivitamin (Daily Multiple 1 ea PO DAILY supplement 08/22/15 04/28/24 History tablet) acetaminophen 325 mg tablet 1,000 mg PO Q6H PRN Pain (Scale 04/03/22 04/28/24 History (Tylenol) Score 1-10) aspirin 81 mg tablet 81 mg PO DAILY anti-platelet 04/03/22 04/28/24 History atorvastatin 40 mg tablet 40 mg PO DAILY HDL #90 tabs 11/20/23 04/28/24 Rx handicap placard #1 ea 11/20/23 04/28/24 Rx montelukast 10 mg tablet 10 mg PO QHS asthma #90 tabs 12/09/23 04/28/24 Rx (Singulair) propranolol 120 mg capsule,24 120 mg PO DAILY #90 caps 02/12/24 04/28/24 Rx hr,extended release amlodipine 5 mg tablet 5 mg PO DAILY #90 TABLETS 03/25/24 04/28/24 Rx naproxen sodium 220 mg capsule 220 mg PO BID 04/09/24 04/28/24 History sucralfate 100 mg/mL oral 10 ml PO .QID #1,000 mL 04/11/24 04/28/24 Rx suspension (Carafate) lactulose 10 gram/15 mL oral See Rx Instructions PO BID PRN 04/21/24 04/28/24 Rx solution constipation #473 mL esomeprazole magnesium 20 mg 20 mg PO DAILY 04/28/24 04/28/24 History capsule,delayed release (Nexium) sertraline 100 mg tablet 100 mg PO DAILY #90 tabs 04/28/24 04/28/24 Rx Have you fallen in the past year?: No PFSH Medical History Urinary retention Hx of bladder problems Wears glasses Bipolar disorder Arthritis Bladder disease High cholesterol Back pain Gastric reflux Non-smoker CPAP (continuous positive airway pressure) dependence History of echocardiogram History of stress test Stroke/cerebrovascular accident Hx of migraines Hx of emotional problems Hx of chronic arthritis Hx of seasonal allergies Radicular pain in left arm GERD (gastroesophageal reflux disease) Cerebrovascular disease Obesity (BMI 30.0-34.9) Depression Bipolar 1 disorder Hypertension Overactive bladder HLD (hyperlipidemia) HTN (hypertension) Surgical History History of bladder suspension procedure H/O: hysterectomy Family History Mother Colon cancer CAD (coronary artery disease) Angina at rest Breast cancer Cervical cancer Depression Hypertension Grandmother Diabetes Maternal grandmother CAD (coronary artery disease) Arthritis Heart disease Grandfather CAD (coronary artery disease) Bleeding disorder Father CAD (coronary artery disease) Hypertension Social History household members: spouse housing: house current occupational status: retired 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 She has been having epigastric pain for the past month. She does have a hx of GERD. She does take naproxen two times per day for a few months now. She has never had an EGD done. Coloscopies have been normal in the past. Her PCP put her back on nexium and has her taking sucralfate as well. She says the sucralfate makes her have more reflux but she continues to take it. She denies n/v, melena, diarrhea or abdominal pain. CT abdomen/pelvis 03.30.24; Status post cholecystectomy Fatty infiltration of the liver. Minimal right hydronephrosis although no obstructive uropathy is seen Biochemical work up 03.30.24 CBC without pertinent abnormality, CMP with slightly elevated liver enzymes, lipase wnl ROS Const Constitutional: Positive for fatigue, headache(s), weakness and weight change (weight gain); No fever(s) ENT ENT: Positive for headache(s); No difficulty swallowing Cardio Cardiology: Positive for leg pain with ex (more content not included)... Normal [facility] H. PYLORI STOOL AGon 024 H PYLORI STL AG Negative Normal Negative [facility] Comment on above: Result Comment: Perf ormed at: [facility] [address] [id number] Risk Professional: Carlyle Trujillo PhD, Phone: [phone] Performed By: #### L 3100.1949, M100.7900 ####[facility] [address] [place], [address] Stool Occult Blood iFOBon STOB Positive Normal [facility] Comment on above: Performed By: #### L 3100.1949, M100.7900 ####[facility] [address] [place], [address] Amylaseon 04-15-2024 KRISTIN 41 U/L Normal 25-115 [facility] Comment on above: Performed By: #### L 501.2400, L501.2450, L100.0100 ####[facility] [address] [place], [address] CBC W/Diff, Automatedon 04-02 Absolute Lymph 1.72 X10 3/uL Normal 0.83-4.51 [facility] Comment on above: Performed By: #### L 501.2400, L501.2450, L100.0100 ####[facility] [address] [place], [address] Absolute Neut 2.3 X10 3/uL Normal 2.0-7.7 [facility] Comment on above: Performed By: #### L 501.2400, L501.2450, L100.0100 ####[facility] [address] [place], [address] Basophils/100 WBC (Bld) 0.9 % Normal 0-1 [facility] Comment on above: Performed By: #### L 501.2400, L501.2450, L100.0100 ####[facility] [address] [place], [address] Eosinophils/100 WBC (Bld) 3.7 % Normal 0-5 [facility] Comment on above: Performed By: #### L 501.2400, L501.2450, L100.0100 ####[facility] [address] [place], [address] Erythrocyte distribution width (RBC) [Ratio] 13.1 % Normal 11.6-14.6 [facility] Comment on above: Performed By: #### L 501.2400, L501.2450, L100.0100 ####[facility] [address] [place], [address] Hematocrit (Bld) [Volume fraction] 38.4 % Normal 37-47 [facility] Comment on above: Performed By: #### L 501.2400, L501.2450, L100.0100 ####[facility] [address] [place], [address] Hemoglobin (Bld) [Mass/Vol] 11.9 g/dL Low 12.0-15.0 [facility] Comment on above: Performed By: #### L 501.2400, L501.2450, L100.0100 ####[facility] [address] [place], [address] IG% 0.200 Normal 0.0-0.9 [facility] Comment on above: Result Comment: IG% - Immature Granulocytes (promyelocytes, myelocytes and metamyelocytes) > 1% indicates that a LEFT SHIFT is Present. Performed By: #### L 501.2400, L501.2450, L100.0100 ####[facility] [address] [place], [address] Lymphocytes/100 WBC (Bld) 37.1 % Normal 19-41 [facility] Comment on above: Performed By: #### L 501.2400, L501.2450, L100.0100 ####[facility] [address] [place], [address] MCH (RBC) [Entitic mass] 28.1 pg Normal 27.0-32.0 [facility] Comment on above: Performed By: #### L 501.2400, L501.2450, L100.0100 ####[facility] [address] [place], [address] MCHC (RBC) [Mass/Vol] 31.0 g/dL Low 32-36 [facility] Comment on above: Performed By: #### L 501.2400, L501.2450, L100.0100 ####[facility] [address] [place], [address] MCV (RBC) [Entitic vol] 90.6 fL Normal 81-99 [facility] Comment on above: Performed By: #### L 501.2400, L501.2450, L100.0100 ####[facility] [address] [place], [address] Monocytes/100 WBC (Bld) 8.2 % Normal 0-10 [facility] Comment on above: Performed By: #### L 501.2400, L501.2450, L100.0100 ####[facility] [address] [place], [address] Neutrophils/100 WBC (Bld) 49.9 % Normal 47-70 [facility] Comment on above: Performed By: #### L 501.2400, L501.2450, L100.0100 ####[facility] [address] [place], [address] Nucleated RBC (Bld) [#/Vol] 0 10*3/uL Normal 0-5 [facility] Comment on above: Performed By: #### L 501.2400, L501.2450, L100.0100 ####[facility] [address] [place], [address] Platelet mean volume (Bld) [Entitic vol] 12.5 fL High 6.2-12.0 [facility] Comment on above: Performed By: #### L 501.2400, L501.2450, L100.0100 ####[facility] [address] [place], [address] Platelets (Bld) [#/Vol] 103 10*3/uL Low 150-450 [facility] Comment on above: Performed By: #### L 501.2400, L501.2450, L100.0100 ####[facility] [address] [place], [address] RBC (Bld) [#/Vol] 4.24 10*6/uL Normal 4.2-5.4 [facility] Comment on above: Performed By: #### L 501.2400, L501.2450, L100.0100 ####[facility] [address] [place], [address] RDW SD 42.6 fl Normal 35.1-43.9 [facility] Comment on above: Performed By: #### L 501.2400, L501.2450, L100.0100 ####[facility] [address] [place] [place], [address] WBC (Bld) [#/Vol] 4.6 10*3/uL Normal 4.4-11.0 [facility] Comment on above: Performed By: #### L 501.2400, L501.2450, L100.0100 ####[facility] [address] [place], [address] Lipaseon 04-15-2024 Lipase [Catalytic activity/Vol] 59 U/L Normal 13-75 [facility] Comment on above: Result Comment: Wendy robles note: LIPASE revised reference range effective 22. New Lipase methodology. Expected to produce lower values than the previous assay method. NEW Reference Range: 13 - 75 U/L Performed By: #### L 501.2400, L501.2450, L100.0100 ####[facility] [address] [place], [address] Internal Medicine Office Vis iton 04-09-2024 Internal Medicine Office Visit [facility] [address] [place] [address] [place] [address] OFFICE VISIT Date of Service: 04/09/24 MR#: [id number] Acct: [id number] Name: SHIRA SHEN Rep #: [id number] : 1950 Provider: SHARDA Marcum Age/Sex: 73/F Location: [facility] Status: Signed Intake Vital Signs 03/30/24 12:26 04/09/24 13:42 Height 5 ft 4 in 5 ft 4 in Weight: 193 lb BMI 33.1 BP 154/82 H Blood Pressure Location Lt brachial Position Sitting Respiration 17 Pulse 82 Pulse Source Monitor Temp 97.5 F L Temp Source Temporal Pulse Oximetry (%) 97 Oxygen Delivery Method room air Intake Visit Reasons: ACUTE - [facility] ER FU Chief Complaint: ACUTE-[facility] ER FU Is patient in pain?: No Allergies codeine Allergy (Verified 04/09/24 13:43) Other Penicillins Allergy (Verified 04/09/24 13:43) Itching Qhlhddx-AYV-VpV Reductase Inhibitor (Tsxrumv-Wzr-Crg Reductase Inhibitor) Allergy (Verified 04/09/24 13:43) Unknown Sulfa (Sulfonamide Antibiotics) Allergy (Verified 04/09/24 13:43) Itching Medications ???Medication ???Instructions ???Recorded ???Confirmed ???Type ascorbic acid (vitamin C) 1,000 mg 500 mg PO DAILY supplement 08/22/15 04/09/24 History tablet (C-1000) multivitamin (Daily Multiple 1 ea PO DAILY supplement 08/22/15 04/09/24 History tablet) cholecalciferol (vitamin D3) 25 1,000 unit PO DAILY supplement 03/23/16 04/09/24 History mcg (1,000 unit) tablet (Vitamin D3) acetaminophen 325 mg tablet 1,000 mg PO Q6H PRN Pain (Scale 04/03/22 04/09/24 History (Tylenol) Score 1-10) aspirin 81 mg tablet 81 mg PO DAILY anti-platelet 04/03/22 04/09/24 History Lactobacillus acidophilus 250 1,000 mmu cells PO DAILY 10/01/22 04/09/24 History million cell capsule (Probiotic Acidophilus) cranberry 500 mg capsule 500 mg PO DAILY 10/01/22 04/09/24 History atorvastatin 40 mg tablet 40 mg PO DAILY HDL #90 tabs 11/20/23 04/09/24 Rx handicap placard #1 ea 11/20/23 02/12/24 Rx montelukast 10 mg tablet 10 mg PO QHS asthma #90 tabs 12/09/23 04/09/24 Rx (Singulair) sertraline 100 mg tablet 100 mg PO DAILY #30 tabs 01/01/24 04/09/24 Rx olopatadine 0.2 % eye drops 1 drp ophthalmic (eye) DAILY PRN 02/10/24 04/09/24 Rx (Pataday Once Daily Relief) eye watery/itching #2.5 mL propranolol 120 mg capsule,24 120 mg PO DAILY #90 caps 02/12/24 04/09/24 Rx hr,extended release amlodipine 5 mg tablet 5 mg PO DAILY #90 TABLETS 03/25/24 04/09/24 Rx omeprazole 40 mg capsule,delayed 40 mg PO DAILY #30 caps 03/30/24 Rx release famotidine 10 mg tablet (Pepcid AC) 10 mg PO DAILY 04/09/24 History naproxen sodium 220 mg capsule 220 mg PO BID 04/09/24 04/09/24 History sucralfate 100 mg/mL oral 10 ml PO .QID #1,000 mL 04/11/24 Rx suspension (Carafate) Have you fallen in the past year?: No Nurse's Note: pt states that she has had worsening reflux in the past month, medications do not help pt states she has taken omeprazole and pecid but neither one work for her. states the omeprazole from the hospital causes and allergic reaction (itching all over) because of the pill coating [facility] Medical History Urinary retention Hx of bladder problems Wears glasses Bipolar disorder Arthritis Bladder disease High cholesterol Back pain Gastric reflux Non-smoker CPAP (continuous positive airway pressure) dependence History of echocardiogram History of stress test Stroke/cerebrovascular accident Hx of migraines Hx of emotional problems Hx of chronic arthritis Hx of seasonal allergies Radicular pain in left arm GERD (gastroesophageal reflux disease) Cerebrovascular disease Obesity (BMI 30.0-34.9) Depression Bipolar 1 disorder Hypertension Overactive bladder HLD (hyperlipidemia) HTN (hypertension) Surgical History History of bladder suspension procedure H/O: hysterectomy Family History Mother Colon cancer CAD (coronary artery disease) Angina at rest Breast cancer Cervical cancer Depression Hypertension Grandmother Diabetes Maternal grandmother CAD (coronary artery disease) Arthritis Heart disease Grandfather CAD (coronary artery disease) Bleeding disorder Father CAD (coronary artery disease) Hypertension Social History household members: spouse housing: house current occupational status: retired 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 Normal [facility] Venous Duplex US, Unilateral on 04-09-2024 Venous Duplex US, [facility] [address] [place] [address] Venous Duplex US, Unilateral 04/09/24 1557 MR#: [id number] Acct: [id number] Name: SHIRA SHEN Rep #: [id number] : 1950 73 From: Barry Webb MD Attending Dr: SHARDA Marcum Status: REG CLI Ordering Dr: Geovanny Taylor PA Date: 04/09/24 Location: CVS Sex: F C Admitted: Reason For Study: Right leg swelling RIGHT LEFT GSV is normal. CFV is compressible, spontaneous, phasic, CFV is compressible, spontaneous, phasic, competent, and demonstrates normal competent and demonstrates normal augmentation. augmentation. FV is compressible, spontaneous, phasic, competent and demonstrates normal augmentation. POP V is compressible, spontaneous, phasic, competent and demonstrates normal augmentation. T/P Trunk is compressible. PTV is compressible. RT PerV is compressible. Procedure This is a venous duplex using B-mode, color flow and spectral Doppler. Exam performed in department. A preliminary report was called and/or faxed to Claudia ROBIN. VL/Venous Duplex US, Unilateral Interpretation Summary Deep veins of the right lower extremity are patent and compressible segmentally. There is no evidence of right lower extremity deep vein thrombosis. The right great saphenous vein appears patent and compressible segmentally. Ordering Physician: Geovanny Taylor Referring Physician: Nimisha Olvera Performed By: Lilliam Ríos RVT 04/09/24 1800 Date Barry Webb MD CC: Dr. Nimisha Olvera MD; SHARDA Marcum Date Dictated: 04/09/24 1557 Date Transcribed: 04/09/24 1800 Bakeshop Cleaner: Signed [facility] 12 Lead EKGon 03-30-2024 12 Lead EKG [facility] Cardi[facility] [address] [place] [address] 12 Lead EKG 03/30/24 1309 MR#: [id number] Acct: [id number] Name: SHIRA SHEN Rep #: [id number] : 1950 73 From: Swathi Beck MD Attending Dr: Status: DEP ER Ordering Dr: John Liriano DO Date: 03/30/24 Location: ED Sex: F C Admitted: Test Reason : GENERAL Blood Pressure : / mmHG Vent. Rate : 069 BPM Atrial Rate : 069 BPM P-R Int : 158 ms QRS Dur : 128 ms QT Int : 432 ms P-R-T Axes : 051 -26 010 degrees QTc Int : 462 ms Normal sinus rhythm Right bundle branch block Abnormal ECG Confirmed by JR CARRANZA, LAURENT ([id number]), movie editor ЕЛЕНА TAPIA ([id number]) on 04/03/2024 9:52:57 AM Referred By: Confirmed By:CHARLES BECK MD 04/03/24 0952 Date Swathi Beck MD CC: Dr. Nimisha Olvera MD; Dr. John Liriano DO Signed [facility] Abdomen/Pelvis W IV Cont ONL Yon 03-30-2024 Abdomen/Pelvis W IV Cont ONLY [facility] Imaging Services [address] [place] [place], [place] [address] Abdomen/Pelvis W IV Cont ONLY MR#: [id number] Acct: [id number] Name: SHIRA SHEN Rep #: [id number] : 1950 F 73 From: Dejan masters MD PCP: Dr. Nimisha Olvera MD Status: REG ER Study: Abdomen/Pelvis W IV Cont ONLY Date of Exam: Exam# [id number] Ordering Dr: John Liriano DO [id number] STUDY: CT ABDOMEN AND PELVIS WITH CONTRAST REASON FOR EXAM: Female, 73 years old. Epigastric pain. RADIATION DOSAGE (If Supplied By Facility): CTDIvol = ( 14.66 ) mGy, DLP = ( 1112.60 ) mGycm TECHNIQUE: Transaxial images were obtained from the dome of the diaphragm to the symphysis pubis without oral contrast. IV 100mL Isovue-370 was administered. Sagittal and coronal images were reconstructed. Individualized dose optimization techniques were used for this CT. COMPARISON: Comparison is made with prior study dated August 23, 2015. FINDINGS: The visualized lung bases are unremarkable. Coronary artery calcification. There is decreased attenuation of the liver consistent with steatosis. The patient is status post cholecystectomy. Normal spleen. Normal pancreas. Normal bilateral adrenal glands. Mild degree of right hydronephrosis. No obstructive uropathy is seen. Normal left kidney. Normal visualized stomach. Normal small intestine. Normal colon. There is non-visualization of the appendix. There is scattered atherosclerotic calcification of the abdominal aorta, without a demonstrated aneurysm. Normal inferior vena cava. Normal retroperitoneum. Normal urinary bladder. There is absence of the uterus consistent with a prior hysterectomy. Normal abdominal wall. This space narrowing at the L4-L5 and L5-S1 levels. The spinal cord stimulating battery pack is seen overlying the right. CT/Abdomen/Pelvis W IV Cont ONLY IMPRESSION: Status post cholecystectomy. Fatty infiltration of the liver. Minimal right hydronephrosis although no obstructive uropathy is seen. Electronically Signed: Dejan Garcia MD at 13:59 EDT , CC: Dr. Nimisha Olvera MD; Dr. John Liriano DO Bakeshop Cleaner: Signed Normal [facility] CBC W/Diff, Automatedon 07- Absolute Lymph 2.15 X10 3/uL Normal 0.83-4.51 [facility] Comment on above: Performed By: #### L 501.2450, L500.4050, L100.0100, L501.4020 ####[facility] [address] [place], [address] Absolute Neut 2.8 X10 3/uL Normal 2.0-7.7 [facility] Comment on above: Performed By: #### L 501.2450, L500.4050, L100.0100, L501.4020 ####[facility] [address] [place], [address] Basophils/100 WBC (Bld) 0.9 % Normal 0-1 [facility] Comment on above: Performed By: #### L 501.2450, L500.4050, L100.0100, L501.4020 ####[facility] [address] [place], [address] Eosinophils/100 WBC (Bld) 2.3 % Normal 0-5 [facility] Comment on above: Performed By: #### L 501.2450, L500.4050, L100.0100, L501.4020 ####[facility] [address] [place], [address] Erythrocyte distribution width (RBC) [Ratio] 13.2 % Normal 11.6-14.6 [facility] Comment on above: Performed By: #### L 501.2450, L500.4050, L100.0100, L501.4020 ####[facility] [address] [place], [address] Hematocrit (Bld) [Volume fraction] 36.7 % Low 37-47 [facility] Comment on above: Performed By: #### L 501.2450, L500.4050, L100.0100, L501.4020 ####[facility] [address] [place], [address] Hemoglobin (Bld) [Mass/Vol] 12.0 g/dL Normal 12.0-15.0 [facility] Comment on above: Performed By: #### L 501.2450, L500.4050, L100.0100, L501.4020 ####[facility] [address] [place], [address] IG% 0.300 Normal 0.0-0.9 [facility] Comment on above: Result Comment: IG% - Immature Granulocytes (promyelocytes, myelocytes and metamyelocytes) > 1% indicates that a LEFT SHIFT is Present. Performed By: #### L 501.2450, L500.4050, L100.0100, L501.4020 ####[facility] [address] [place], [address] Lymphocytes/100 WBC (Bld) 37.6 % Normal 19-41 [facility] Comment on above: Performed By: #### L 501.2450, L500.4050, L100.0100, L501.4020 ####[facility] [address] [place], [address] MCH (RBC) [Entitic mass] 28.4 pg Normal 27.0-32.0 [facility] Comment on above: Performed By: #### L 501.2450, L500.4050, L100.0100, L501.4020 ####[facility] [address] [place], [address] MCHC (RBC) [Mass/Vol] 32.7 g/dL Normal 32-36 [facility] Comment on above: Performed By: #### L 501.2450, L500.4050, L100.0100, L501.4020 ####[facility] [address] [place], [address] MCV (RBC) [Entitic vol] 87.0 fL Normal 81-99 [facility] Comment on above: Performed By: #### L 501.2450, L500.4050, L100.0100, L501.4020 ####[facility] [address] [place], [address] Monocytes/100 WBC (Bld) 9.6 % Normal 0-10 [facility] Comment on above: Performed By: #### L 501.2450, L500.4050, L100.0100, L501.4020 ####[facility] [address] [place], [address] Neutrophils/100 WBC (Bld) 49.3 % Normal 47-70 [facility] Comment on above: Performed By: #### L 501.2450, L500.4050, L100.0100, L501.4020 ####[facility] [address] [place], [address] Nucleated RBC (Bld) [#/Vol] 0 10*3/uL Normal 0-5 [facility] Comment on above: Performed By: #### L 501.2450, L500.4050, L100.0100, L501.4020 ####[facility] [address] [place], [address] Platelet mean volume (Bld) [Entitic vol] 11.9 fL Normal 6.2-12.0 [facility] Comment on above: Performed By: #### L 501.2450, L500.4050, L100.0100, L501.4020 ####[facility] [address] [place], [address] Platelets (Bld) [#/Vol] 159 10*3/uL Normal 150-450 [facility] Comment on above: Performed By: #### L 501.2450, L500.4050, L100.0100, L501.4020 ####[facility] [address] [place], [address] RBC (Bld) [#/Vol] 4.22 10*6/uL Normal 4.2-5.4 [facility] Comment on above: Performed By: #### L 501.2450, L500.4050, L100.0100, L501.4020 ####[facility] [address] [place], [address] RDW SD 41.2 fl Normal 35.1-43.9 [facility] Comment on above: Performed By: #### L 501.2450, L500.4050, L100.0100, L501.4020 ####[facility] [address] [place], [address] WBC (Bld) [#/Vol] 5.7 10*3/uL Normal 4.4-11.0 [facility] Comment on above: Performed By: #### L 501.2450, L500.4050, L100.0100, L501.4020 ####[facility] [address] [place], [address] Comprehensive Metabolic Prof [facility] 03-30-2024 Albumin [Mass/Vol] 3.7 g/dL Normal 3.2-5.0 [facility] Comment on above: Order Comment: 'TROP ' Serial specimen #1, #2 or #3: 1 Performed By: #### L 501.2450, L500.4050, L100.0100, L501.4020 ####[facility] [address] [place], [address] Albumin/Globulin [Mass ratio] 0.9 {ratio} Normal 0.9-2.4 [facility] Comment on above: Order Comment: 'TROP ' Serial specimen #1, #2 or #3: 1 Performed By: #### L 501.2450, L500.4050, L100.0100, L501.4020 ####[facility] [address] [place], [address] ALK P 86 U/L Normal 45-117 [facility] Comment on above: Order Comment: 'TROP ' Serial specimen #1, #2 or #3: 1 Performed By: #### L 501.2450, L500.4050, L100.0100, L501.4020 ####[facility] [address] [place], [address] ALT [Catalytic activity/Vol] 57 U/L High 13-56 [facility] Comment on above: Order Comment: 'TROP ' Serial specimen #1, #2 or #3: 1 Performed By: #### L 501.2450, L500.4050, L100.0100, L501.4020 ####[facility] [address] [place], [address] AST [Catalytic activity/Vol] 60 U/L High 15-37 [facility] Comment on above: Order Comment: 'TROP ' Serial specimen #1, #2 or #3: 1 Result Comment: Mode rate Hemolysis, Result may be falsely increased. Performed By: #### L 501.2450, L500.4050, L100.0100, L501.4020 ####[facility] [address] [place], [address] Bilirubin [Mass/Vol] 0.40 mg/dL Normal 0.20-1.00 [facility] Comment on above: Order Comment: 'TROP ' Serial specimen #1, #2 or #3: 1 Result Comment: For patients on eltrombopag therapy, use of Dimension [employer] TBIL is not recommended. Performed By: #### L 501.2450, L500.4050, L100.0100, L501.4020 ####[facility] [address] [place], [address] BUN/CRE 22.3 RATIO High 10-20 [facility] Comment on above: Order Comment: 'TROP ' Serial specimen #1, #2 or #3: 1 Performed By: #### L 501.2450, L500.4050, L100.0100, L501.4020 ####[facility] [address] [place], [address] CA,Total 9.4 mg/dL Normal 8.5-10.1 [facility] Comment on above: Order Comment: 'TROP ' Serial specimen #1, #2 or #3: 1 Performed By: #### L 501.2450, L500.4050, L100.0100, L501.4020 ####[facility] [address] [place], [address] Chloride [Moles/Vol] 107 mmol/L Normal 98-107 [facility] Comment on above: Order Comment: 'TROP ' Serial specimen #1, #2 or #3: 1 Performed By: #### L 501.2450, L500.4050, L100.0100, L501.4020 ####[facility] [address] [place], [address] CO2 [Moles/Vol] 25.0 mmol/L Normal 21.0-32.0 [facility] Comment on above: Order Comment: 'TROP ' Serial specimen #1, #2 or #3: 1 Performed By: #### L 501.2450, L500.4050, L100.0100, L501.4020 ####[facility] [address] [place], [address] Creatinine [Mass/Vol] 0.81 mg/dL Normal 0.55-1.02 [facility] Comment on above: Order Comment: 'TROP ' Serial specimen #1, #2 or #3: 1 Result Comment: The validity of the calculated GFR GFRAA in patients over 70 years has not been determined. Clinical correlation is essential. Performed By: #### L 501.2450, L500.4050, L100.0100, L501.4020 ####[facility] [address] [place], [address] ECRCL 67.76 ml/min Normal [facility] Comment on above: Order Comment: 'TROP ' Serial specimen #1, #2 or #3: 1 Performed By: #### L 501.2450, L500.4050, L100.0100, L501.4020 ####[facility] [address] [place], [address] EST GFR - AA 90 mL/min Normal >60 [facility] Comment on above: Order Comment: 'TROP ' Serial specimen #1, #2 or #3: 1 Result Comment: Afri can [place] GFR Calc Performed By: #### L 501.2450, L500.4050, L100.0100, L501.4020 ####[facility] [address] [place], [address] GAP 6 Normal 5-15 [facility] Comment on above: Order Comment: 'TROP ' Serial specimen #1, #2 or #3: 1 Performed By: #### L 501.2450, L500.4050, L100.0100, L501.4020 ####[facility] [address] [place], [address] GFR/1.73 sq M.predicted among non-blacks MDRD (S/P/Bld) [Vol rate/Area] 74 mL/min/{1.73_m2} Normal >60 [facility] Comment on above: Order Comment: 'TROP ' Serial specimen #1, #2 or #3: 1 Result Comment: Non- GFR Calc Performed By: #### L 501.2450, L500.4050, L100.0100, L501.4020 ####[facility] [address] [place], [address] Globulin (S) [Mass/Vol] 3.9 g/dL Normal 2.2-4.2 [facility] Comment on above: Order Comment: 'TROP ' Serial specimen #1, #2 or #3: 1 Performed By: #### L 501.2450, L500.4050, L100.0100, L501.4020 ####[facility] [address] [place], [address] Glucose [Mass/Vol] 138 mg/dL High 74-106 [facility] Comment on above: Order Comment: 'TROP ' Serial specimen #1, #2 or #3: 1 Result Comment: Fast ing Glucose result greater than or equal to 126 mg/dL suggests DIABETES MELLITUS per A.D.A. criteria. Performed By: #### L 501.2450, L500.4050, L100.0100, L501.4020 ####[facility] [address] [place], [address] Potassium [Moles/Vol] 4.1 mmol/L Normal 3.5-5.1 [facility] Comment on above: Order Comment: 'TROP ' Serial specimen #1, #2 or #3: 1 Result Comment: Mode rate Hemolysis, Result may be falsely increased. Performed By: #### L 501.2450, L500.4050, L100.0100, L501.4020 ####[facility] [address] [place], [address] Sodium [Moles/Vol] 138 mmol/L Normal 136-145 [facility] Comment on above: Order Comment: 'TROP ' Serial specimen #1, #2 or #3: 1 Performed By: #### L 501.2450, L500.4050, L100.0100, L501.4020 ####[facility] [address] [place], [address] T PROT 7.6 g/dL Normal 6.4-8.2 [facility] Comment on above: Order Comment: 'TROP ' Serial specimen #1, #2 or #3: 1 Performed By: #### L 501.2450, L500.4050, L100.0100, L501.4020 ####[facility] [address] [place], [address] Urea nitrogen [Mass/Vol] 18 mg/dL Normal 7-18 [facility] Comment on above: Order Comment: 'TROP ' Serial specimen #1, #2 or #3: 1 Performed By: #### L 501.2450, L500.4050, L100.0100, L501.4020 ####[facility] [address] [place], [address] Emergency Department Summary on 03-30-2024 Emergency Department Summary [facility] Medical Records Department [address] [place] [address] Emergency Department Summary 03/30/24 MR#: [id number] Acct: [id number] Name: SHIRA SHEN Rep #: [id number] : 1950 73 From: John Liriano DO PCP: Dr. Nimisha Olvera MD Status:REG ER Location: ED HPI History of Present Illness Chief Complaint: Abd Pain Narrative Narrative: Patient is a 73-year-old female with a past medical history of bipolar disorder, hypertension, hyperlipidemia, CVA, GERD who presented to the emergency department with chief complaint of abdominal pain. She states that the abdominal pain has been going on for approximately a week now and states that she cannot take it any longer prompting her to come here for further evaluation management. Patient states that her pain is near the upper abdomen in the midline and rates this pain a 5 out of 10. Patient denies any recent alcohol use, denies any drug use. Patient denies any history of blood clots denies any recent travel history. [facility] Medical History Urinary retention Hx of bladder problems Wears glasses Bipolar disorder Arthritis Bladder disease High cholesterol Back pain Gastric reflux Non-smoker CPAP (continuous positive airway pressure) dependence History of echocardiogram History of stress test Stroke/cerebrovascular accident Hx of migraines Hx of emotional problems Hx of chronic arthritis Hx of seasonal allergies Radicular pain in left arm GERD (gastroesophageal reflux disease) Cerebrovascular disease Obesity (BMI 30.0-34.9) Depression Bipolar 1 disorder Hypertension Overactive bladder HLD (hyperlipidemia) HTN (hypertension) Home Medications ???Medication ???Instructions ???Recorded ???Last Taken ???Type ascorbic acid (vitamin C) 1,000 mg 500 mg PO DAILY supplement 08/22/15 10/24/22 History tablet (C-1000) multivitamin (Daily Multiple 1 ea PO DAILY supplement 08/22/15 10/24/22 History tablet) cholecalciferol (vitamin D3) 25 1,000 unit PO DAILY supplement 03/23/16 10/24/22 History mcg (1,000 unit) tablet (Vitamin D3) acetaminophen 325 mg tablet 1,000 mg PO Q6H PRN Pain (Scale 04/03/22 10/24/22 History (Tylenol) Score 1-10) aspirin 81 mg tablet 81 mg PO DAILY anti-platelet 04/03/22 10/25/22 History Lactobacillus acidophilus 250 1,000 mmu cells PO DAILY 10/01/22 10/24/22 History million cell capsule (Probiotic Acidophilus) cranberry 500 mg capsule 500 mg PO DAILY 10/01/22 10/24/22 History polyethylene glycol 3350 17 4 g PO DAILY 06/17/23 Unknown History gram/dose oral powder (Miralax) atorvastatin 40 mg tablet 40 mg PO DAILY HDL #90 tabs 11/20/23 Unknown Rx handicap placard #1 ea 11/20/23 Unknown Rx montelukast 10 mg tablet 10 mg PO QHS asthma #90 tabs 12/09/23 Unknown Rx (Singulair) sertraline 100 mg tablet 100 mg PO DAILY #30 tabs 01/01/24 Unknown Rx fluticasone propionate 50 2 spray intranasal DAILY #16 grams 02/10/24 Unknown Rx mcg/actuation nasal spray,suspension olopatadine 0.2 % eye drops 1 drp ophthalmic (eye) DAILY PRN 02/10/24 Unknown Rx (Pataday Once Daily Relief) eye watery/itching #2.5 mL prednisone 5 mg tablets in a dose See Rx Instructions PO PER PKG DIR 02/10/24 Unknown Rx pack #21 tabs propranolol 120 mg capsule,24 120 mg PO DAILY #90 caps 02/12/24 Unknown Rx hr,extended release amlodipine 5 mg tablet 5 mg PO DAILY #90 TABLETS 03/25/24 Unknown Rx omeprazole 40 mg capsule,delayed 40 mg PO DAILY #30 caps 03/30/24 Unknown Rx release Allergy/AdvReac Type Severity Reaction Status Date / Time codeine Allergy Other Verified 03/30/24 12:26 Penicillins Allergy Itching Verified 03/30/24 12:26 Ulhhdqc-JOG-XhE Reductase Allergy Unknown Verified 03/30/24 12:26 Inhibitor (Mxvlbdd-Xmm-Zod Reductase Inhibitor) Sulfa (Sulfonamide Allergy Itching Verified 03/30/24 12:26 Antibiotics) Family History Mother Colon cancer CAD (coronary artery disease) Angina at rest Breast cancer Cervical cancer Depression Hypertension Grandmother Diabetes Maternal grandmother CAD (coronary artery disease) Arthritis Heart disease Grandfather CAD (coronary artery disease) Bleeding disorder Father CAD (coronary artery disease) Hypertension Surgical History History of bladder suspension procedure H/O: hysterectomy Social History household members: spouse housing: house current occupational status: retired 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 Normal [facility] L501.4020on 03-30-2024 TROPONIN-I HS 4 pg/mL Normal 3.0-54.0 [facility] Comment on above: Order Comment: 'TROP ' Serial specimen #1, #2 or #3: 1 Result Comment: Plea se Note: New Test Units and Gender Specific Reference Ranges. For more information see Policy Stat Procedure [place] High Sensitivity Troponin (TNIH) and attachments. Performed By: #### L 501.6370, L500.4050, L100.0100, L501.4020 ####[facility] [id number] [place], [address] Lipaseon 03-30-2024 Lipase [Catalytic activity/Vol] 45 U/L Normal 13-75 [facility] Comment on above: Order Comment: 'TROP ' Serial specimen #1, #2 or #3: 1 Result Comment: Wendy robles note: LIPASE revised reference range effective 22. New Lipase methodology. Expected to produce lower values than the previous assay method. NEW Reference Range: 13 - 75 U/L Performed By: #### L 501.2450, L500.4050, L100.0100, L501.4020 ####[facility] [address] [place], [address] Urinalysis, Completeon 03-30 EPI,SQUAMOUS 5-10 SEEN Normal 5-10 [facility] Comment on above: Order Comment: CLEAN CATCH Performed By: #### L 300.4310, L100.0100, L300.3900, L3400.0100, M100.651, BTSPAT, L500.2500, L501.9985 #### [facility] [address] [place], [address] RBC 0-5 SEEN Normal 0-5 [facility] Comment on above: Order Comment: CLEAN CATCH Performed By: #### L 300.4310, L100.0100, L300.3900, L3400.0100, M100.651, BTSPAT, L500.2500, L501.9985 #### [facility] [address] [place], [address] WBC 0-5 SEEN Normal 0-5 [facility] Comment on above: Order Comment: CLEAN CATCH Performed By: #### L 300.4310, L100.0100, L300.3900, L3400.0100, M100.651, BTSPAT, L500.2500, L501.9985 #### [facility] [address] [place], [address] BACTERIA 0 SEEN Normal None Seen [facility] Comment on above: Order Comment: CLEAN CATCH Performed By: #### L 300.4310, L100.0100, L300.3900, L3400.0100, M100.651, BTSPAT, L500.2500, L501.9985 #### [facility] [address] [place], [address] Mucus Ql (Urine sed) 0 SEEN Normal [facility] Comment on above: Order Comment: CLEAN CATCH Performed By: #### L 300.4310, L100.0100, L300.3900, L3400.0100, M100.651, BTSPAT, L500.2500, L501.9985 #### [facility] [address] [place], [address] Absolute lymphocyte countOrd ered By: Nimisha Olvera on 05-22-2023 Lymphocytes Auto (Unsp spec) [#/Vol] 2.52 10*3/uL 0.83-4.51 [facility] Basophil percentageOrdered B y: Nimisha Olvera on 05-22-2023 Basophils/100 WBC (Bld) 0.6 % 0-1 [facility] Bilirubin [Mass/Vol] 0.40 mg/dL 0.20-1.00 [facility] Comment on above: For patients on eltr ombopag therapy, use of Dimension [place] TBIL is not recommended. Chloride [Moles/Vol] 105 mmol/L 98-107 [facility] Cholesterol [Mass/Vol] 168 mg/dL <200 [facility] Comment on above: <200 mg/dL Desirable 200-240 mg/dL Borderline >240 mg/dL High Risk Eosinophils/100 WBC (Bld) 2.5 % 0-5 [facility] Glucose [Mass/Vol] 144 mg/dL 74-106 [facility] Comment on above: Fasting Glucose resu lt greater than or equal to 126 mg/dL suggests DIABETES MELLITUS per A.D.A. criteria. Neutrophils (Bld) [#/Vol] 3.4 10*3/uL 2.0-7.7 [facility] Neutrophils/100 WBC (Bld) 50.7 % 47-70 [facility] Potassium [Moles/Vol] 4.4 mmol/L 3.5-5.1 [facility] Protein [Mass/Vol] 7.8 g/dL 6.4-8.2 [facility] Sodium [Moles/Vol] 138 mmol/L 136-145 [facility] Triglyceride [Mass/Vol] 205 mg/dL <199 [facility] Comment on above: The drugs N-Acetylcy steine and Metamizole may falsely depress this assay.Serum Triglycerides Reference Interval Normal <150 mg/dL Borderline high 150 - 199 mg/dL High 200 - 499 mg/dL Very High > or = 500 mg/dL WBC (Bld) [#/Vol] 6.8 10*3/uL 4.4-11.0 [facility] Blood erythrocytes count (nu mber/volume)Ordered By: Nimisha Olvera on 05-22-2023 RBC (Bld) [#/Vol] 4.29 10*6/uL 4.2-5.4 [facility] Blood hemoglobin measurement (mass/volume)Ordered By: Nimisha Olvera on 05-22-2023 Hemoglobin (Bld) [Mass/Vol] 12.1 g/dL 12.0-15.0 [facility] Blood lymphocytes/100 leukoc ytesOrdered By: Nimisha Olvera on 05-22-2023 Lymphocytes/100 WBC (Bld) 37.2 % 19-41 [facility] Blood monocytes/100 leukocyt esOrdered By: Nimisha Olvera on 05-22-2023 Monocytes/100 WBC (Bld) 8.9 % 0-10 [facility] Blood platelet mean volumeOr dered By: Nimisha Olvera on 05-22-2023 Platelet mean volume (Bld) [Entitic vol] 11.7 fL 6.2-12.0 [facility] Determination of erythrocyte mean corpuscular volume (MCV)Ordered By: Nimisha Olvera on 05-22-2023 MCV (RBC) [Entitic vol] 92.3 fL 81-99 [facility] Hematocrit Auto (Bld) [Volum e fraction]Ordered By: Nimisha Olvera on 05-22-2023 Hematocrit (Bld) [Volume fraction] 39.6 % 37-47 [facility] Laboratory - Chemistry and C hemistry - challengeOrdered By: Nimisha Olvera on 05-22-2023 ALP [Catalytic activity/Vol] 91 U/L 45-117 [facility] ALT [Catalytic activity/Vol] 47 U/L 13-56 [facility] CO2 [Moles/Vol] 29.0 mmol/L 21.0-32.0 [facility] Globulin (S) [Mass/Vol] 4.2 g/dL 2.2-4.2 [facility] Urea nitrogen/Creatinine [Mass ratio] 20.0 mg/mg 10-20 [facility] Laboratory - Hematology and Cell countsOrdered By: Nimisha Olvera on 05-22-2023 Erythrocyte distribution width (RBC) [Entitic vol] 46.5 fL 35.1-43.9 [facility] Erythrocyte distribution width (RBC) [Ratio] 13.7 % 11.6-14.6 [facility] Immature granulocytes/100 WBC (Bld) 0.100 % 0.0-0.9 [facility] Comment on above: IG% - Immature Granu locytes (promyelocytes, myelocytes and metamyelocytes) > 1% indicates that a LEFT SHIFT is Present. MCH (RBC) [Entitic mass] 28.2 pg 27.0-32.0 [facility] Nucleated RBC/100 WBC (Bld) [Ratio] 0 % 0-5 [facility] MCHC Auto (RBC) [Mass/Vol]Or dered By: Nimisha Olvera on 05-22-2023 MCHC (RBC) [Mass/Vol] 30.6 g/dL 32-36 [facility] No Panel InformationOrdered By: Nimisha Olvera on 05-22-2023 Estimated GFR (MDRD) Amer 91 mL/min >60 [facility] Comment on above: GFR Calc Estimated GFR (MDRD) Non-Af Amer 75 mL/min >60 [facility] Comment on above: Non- GFR Calc Platelets bldOrdered By: Kirill Olvera on 05-22-2023 Platelets (Bld) [#/Vol] 190 10*3/uL 150-450 [facility] Serum or plasma albumin corazon urement (mass/volume)Ordered By: Nimisha Olvera on 05-22-2023 Albumin [Mass/Vol] 3.6 g/dL 3.2-5.0 [facility] Serum or plasma albumin/glob ulin mass ratioOrdered By: Nimisha Olvera on 05-22-2023 Albumin/Globulin [Mass ratio] 0.9 {ratio} 0.9-2.4 [facility] Serum or plasma calcium corazon urement (mass/volume)Ordered By: Nimisha Olvera on 05-22-2023 Calcium [Mass/Vol] 9.3 mg/dL 8.5-10.1 [facility] Serum or plasma cholesterol in HDL measurement (mass/volume)Ordered By: Nimisha Ovlera on 05-22-2023 Cholesterol in HDL [Mass/Vol] 41 mg/dL >40 [facility] Comment on above: The drugs N-Acetylcy steine and Metamizole may falsely depress this assay. Reference Range HDL <40 mg/dL Low HDL Cholesterol HDL >or= 60 mg/dL High HDL Cholesterol Serum or plasma cholesterol in VLDL measurement (mass/volume)Ordered By: Nimisha Olvera on 05-22-2023 Cholesterol in VLDL [Mass/Vol] 41 mg/dL 5-40 [facility] Serum or plasma creatinine m easurement (mass/volume)Ordered By: Nimisha Olvera on 05-22-2023 Creatinine [Mass/Vol] 0.80 mg/dL 0.55-1.02 [facility] Comment on above: The validity of the calculated GFR & GFRAA in patients over 70 years has not been determined. Clinical correlation is essential. Serum or plasma low density lipoprotein (LDL) cholesterol measurement (mass/volume)Ordered By: Nimisha Olvera on 05-22-2023 Cholesterol in LDL [Mass/Vol] 86 mg/dL 0-130 [facility] Serum or plasma urea nitroge n measurement (mass/volume)Ordered By: Nimisha Olvera on 05-22-2023 Urea nitrogen [Mass/Vol] 16 mg/dL 7-18 [facility] Thin prep Papanicolaou smear with manual screeningOrdered By: Nimisha Olvera on 05-22-2023 Thin prep Papanicolaou smear with manual screening 35 U/L 15-37 [facility] Thin prep Papanicolaou smear with manual screening 4 5-15 [facility] Whole blood hemoglobin A1c/t otal hemoglobin ratio (mass fraction)Ordered By: Nimisha Olvera on 05-22-2023 HbA1c (Bld) [Mass fraction] 6.5 % 3.8-5.6 [facility] Comment on above: Normal < 5.7 % Predi abetic 5.7 - 6.4 % Diabetic >or= 6.5 % Please note range changes. Basophil percentageOrdered B y: Nimisha Olvera on 05-21-2023 Basophil percentage 0 SEEN /hpf 0-5 [facility] Bilirubin Test strip Ql (U)O rdered By: Nimisha Olvera on 05-21-2023 Bilirubin Ql (U) Negative Negative [facility] Culture, urineOrdered By: Pako Olvera on 05-21-2023 Bacteria identified Cx Nom (U) Citrobacter koseri [facility] Bacteria identified Cx Nom (U) Citrobacter koseri [facility] Ketones Test strip Ql (U)Ord ered By: Nimisha Olvera on 05-21-2023 Ketones Ql (U) Negative Negative [facility] Mucus LM Ql (Urine sed)Order ed By: Nimisha Olvera on 05-21-2023 Mucus Ql (Urine sed) 0 SEEN /hpf [facility] Nitrite Test strip Ql (U)Ord ered By: Nimisha Olvera on 05-21-2023 Nitrite Ql (U) Negative Negative [facility] Protein Test strip Ql (U)Ord ered By: Nimisha Olvera on 05-21-2023 Protein Ql (U) Negative Negative [facility] Squamous epithelial cells de tection in urine sediment by light microscopyOrdered By: Nimisha Olvera on 05-21-2023 Epithelial cells.squamous LM Ql (Urine sed) 0-5 SEEN /hpf 5-10 [facility] Urine blood detectionOrdered By: Nimisha Olvera on 05-21-2023 RBC Ql (U) Negative Negative [facility] RBC Ql (U) 0 SEEN /hpf 0-5 [facility] Urine clarityOrdered By: Kirill Olvera on 05-21-2023 Clarity (U) Clear Clear [facility] Urine color determinationOrd ered By: Nimisha Olvera on 05-21-2023 Color (U) Yellow Yellow [facility] Urine glucose detectionOrder ed By: Nimisha Olvera on 05-21-2023 Glucose Ql (U) Normal mg/dl Normal [facility] Urine leukocyte esterase det ection by dipstickOrdered By: Nimisha Olvera on 05-21-2023 Leukocyte esterase Test strip Ql (U) 25 /ul Negative [facility] Urine pHOrdered By: Nimisha avery on 05-21-2023 pH (U) 6.0 [pH] 5.0 - 8.0 [facility] Urine sediment bacteria coun t by microscopy (number/high power field)Ordered By: Nimisha Olvera on 05-21-2023 Bacteria LM.HPF (Urine sed) [#/Area] 0 /[HPF] None Seen [facility] Urine specific gravity measu rementOrdered By: Nimisha Olvera on 05-21-2023 Specific gravity (U) [Rel density] 1.010 1.002-1.03 0 [facility] Urobilinogen Auto test strip Ql (U)Ordered By: Nimisha Olvera on 05-21-2023 Urobilinogen Ql (U) Normal mg/dl Normal [facility] Absolute lymphocyte countOrd ered By: Dr. Olvera on 08-03-2022 Lymphocytes Auto (Unsp spec) [#/Vol] 2.90 10*3/uL 0.83-4.51 [facility] Basophil percentageOrdered B y: Dr. Olvera on 08-03-2022 Basophils/100 WBC (Bld) 0.7 % 0-1 [facility] Bilirubin [Mass/Vol] 0.30 mg/dL 0.20-1.00 [facility] Comment on above: For patients on eltr ombopag therapy, use of Dimension [place] TBIL is not recommended. Chloride [Moles/Vol] 106 mmol/L 98-107 [facility] Cholesterol [Mass/Vol] 174 mg/dL <200 [facility] Comment on above: <200 mg/dL Desirable 200-240 mg/dL Borderline >240 mg/dL High Risk Eosinophils/100 WBC (Bld) 2.9 % 0-5 [facility] Glucose [Mass/Vol] 136 mg/dL 74-106 [facility] Comment on above: Fasting Glucose resu lt greater than or equal to 126 mg/dL suggests DIABETES MELLITUS per A.D.A. criteria. Neutrophils (Bld) [#/Vol] 3.1 10*3/uL 2.0-7.7 [facility] Neutrophils/100 WBC (Bld) 45.5 % 47-70 [facility] Potassium [Moles/Vol] 5.0 mmol/L 3.5-5.1 [facility] Protein [Mass/Vol] 7.8 g/dL 6.4-8.2 [facility] Sodium [Moles/Vol] 139 mmol/L 136-145 [facility] Triglyceride [Mass/Vol] 210 mg/dL <199 [facility] Comment on above: The drugs N-Acetylcy steine and Metamizole may falsely depress this assay.Serum Triglycerides Reference Interval Normal <150 mg/dL Borderline high 150 - 199 mg/dL High 200 - 499 mg/dL Very High > or = 500 mg/dL WBC (Bld) [#/Vol] 6.9 10*3/uL 4.4-11.0 [facility] Blood erythrocytes count (nu mber/volume)Ordered By: Dr. Olvera on 08-03-2022 RBC (Bld) [#/Vol] 4.47 10*6/uL 4.2-5.4 [facility] Blood hemoglobin measurement (mass/volume)Ordered By: Dr. Olvera on 08-03-2022 Hemoglobin (Bld) [Mass/Vol] 12.4 g/dL 12.0-15.0 [facility] Blood lymphocytes/100 leukoc ytesOrdered By: Dr. Olvera on 08-03-2022 Lymphocytes/100 WBC (Bld) 42.2 % 19-41 [facility] Blood monocytes/100 leukocyt esOrdered By: Dr. Olvera on 08-03-2022 Monocytes/100 WBC (Bld) 8.4 % 0-10 [facility] Blood platelet mean volumeOr dered By: Dr. Olvera on 08-03-2022 Platelet mean volume (Bld) [Entitic vol] 11.5 fL 6.2-12.0 [facility] Determination of erythrocyte mean corpuscular volume (MCV)Ordered By: Dr. Olvera on 08-03-2022 MCV (RBC) [Entitic vol] 90.8 fL 81-99 [facility] Hematocrit Auto (Bld) [Volum e fraction]Ordered By: Dr. Olvera on 08-03-2022 Hematocrit (Bld) [Volume fraction] 40.6 % 37-47 [facility] Laboratory - Chemistry and C hemistry - challengeOrdered By: Dr. Olvera on 08-03-2022 ALP [Catalytic activity/Vol] 90 U/L 45-117 [facility] ALT [Catalytic activity/Vol] 48 U/L 13-56 [facility] CO2 [Moles/Vol] 30.0 mmol/L 21.0-32.0 [facility] Globulin (S) [Mass/Vol] 4.1 g/dL 2.2-4.2 [facility] Urea nitrogen/Creatinine [Mass ratio] 23.6 mg/mg 10-20 [facility] Laboratory - Hematology and Cell countsOrdered By: Dr. Olvera on 08-03-2022 Erythrocyte distribution width (RBC) [Entitic vol] 45.2 fL 35.1-43.9 [facility] Erythrocyte distribution width (RBC) [Ratio] 13.6 % 11.6-14.6 [facility] Immature granulocytes/100 WBC (Bld) 0.300 % 0.0-0.9 [facility] Comment on above: IG% - Immature Granu locytes (promyelocytes, myelocytes and metamyelocytes) > 1% indicates that a LEFT SHIFT is Present. MCH (RBC) [Entitic mass] 27.7 pg 27.0-32.0 [facility] Nucleated RBC/100 WBC (Bld) [Ratio] 0 % 0-5 [facility] MCHC Auto (RBC) [Mass/Vol]Or dered By: Dr. Olvera on 08-03-2022 MCHC (RBC) [Mass/Vol] 30.5 g/dL 32-36 [facility] No Panel InformationOrdered By: Dr. Olvera on 08-03-2022 Estimated GFR (MDRD) Amer 90 mL/min >60 [facility] Comment on above: GFR Calc Estimated GFR (MDRD) Non-Af Amer 75 mL/min >60 [facility] Comment on above: Non- GFR Calc Platelets bldOrdered By: Dr. Olvera on 08-03-2022 Platelets (Bld) [#/Vol] 229 10*3/uL 150-450 [facility] Serum or plasma albumin corazon urement (mass/volume)Ordered By: Dr. Olvera on 08-03-2022 Albumin [Mass/Vol] 3.7 g/dL 3.2-5.0 [facility] Serum or plasma albumin/glob ulin mass ratioOrdered By: Dr. Olvera on 08-03-2022 Albumin/Globulin [Mass ratio] 0.9 {ratio} 0.9-2.4 [facility] Serum or plasma calcium corazon urement (mass/volume)Ordered By: Dr. Olvera on 08-03-2022 Calcium [Mass/Vol] 9.6 mg/dL 8.5-10.1 [facility] Serum or plasma cholesterol in HDL measurement (mass/volume)Ordered By: Dr. Olvera on 08-03-2022 Cholesterol in HDL [Mass/Vol] 39 mg/dL >40 [facility] Comment on above: The drugs N-Acetylcy steine and Metamizole may falsely depress this assay. Reference Range HDL <40 mg/dL Low HDL Cholesterol HDL >or= 60 mg/dL High HDL Cholesterol Serum or plasma cholesterol in VLDL measurement (mass/volume)Ordered By: Dr. Olvera on 08-03-2022 Cholesterol in VLDL [Mass/Vol] 42 mg/dL 5-40 [facility] Serum or plasma creatinine m easurement (mass/volume)Ordered By: Dr. Olvera on 08-03-2022 Creatinine [Mass/Vol] 0.81 mg/dL 0.55-1.02 [facility] Comment on above: The validity of the calculated GFR & GFRAA in patients over 70 years has not been determined. Clinical correlation is essential. Serum or plasma low density lipoprotein (LDL) cholesterol measurement (mass/volume)Ordered By: Dr. Olvera on 08-03-2022 Cholesterol in LDL [Mass/Vol] 93 mg/dL 0-130 [facility] Serum or plasma urea nitroge n measurement (mass/volume)Ordered By: Dr. Olvera on 08-03-2022 Urea nitrogen [Mass/Vol] 19 mg/dL 7-18 [facility] Thin prep Papanicolaou smear with manual screeningOrdered By: Dr. Olvera on 08-03-2022 Thin prep Papanicolaou smear with manual screening 38 U/L 15-37 [facility] Thin prep Papanicolaou smear with manual screening 3 5-15 [facility] CNOVon 05-24-2022 CNOV Office Visit ([id number] ) SHIRA SHEN ([id number]) 1950 F NFR Date Time Provider Department 05/24/22 10:00 AM SEGUNDO ROBERTS [id number] During your visit today, we recorded the following information about you: Temperature Pulse Respiration Blood pressure 97.5 degrees 62/minute 13/minute 125/60 Weight Height 85.7 kg 1.626 m Segundo Roberts DO 06/18/2022 9:53 PM Signed [facility] Established Visit Consultation is requested by: SELF PCP: [place] [address] [facility] Shira Shen is a 72 year old right-handed female who presents for follow-up evaluation for recent stroke and hospitalization 03/30/2022-04/03/2022. Reason for Visit: stroke Date of Last Event: 03/29/2022 History of Event: Patient reports she Antiplatelets/Anticoagulants: Aspirin and Clopidogrel Statins: Atorvastatin Side effects: No Refills needed: No Residual Deficits: Cognitive impairments, Right-sided weakness and Right-sided numbness Current PT/OT/ST: Oupatient with physical therapy and Oupatient with speech therapy Initial Discharge Disposition: IRF Current Living Situation: Home with spouse Current use of a mobility aid for walking/getting around: Walker Questions for Visit: Concerned about what to do next regarding her recent stroke Do you have any planned upcoming surgeries or dental procedures? No She presents today alone to clinic for follow-up after her recent hospitalization for acute stroke. She has a significant past medical history of hypertension, hyperlipidemia, obstructive sleep apnea, and reportedly prediabetes.She was discharged to acute rehab facility after her hospital stay and later discharged to home with outpatient physical and speech therapy after 2 weeks. She reports persistent right arm and leg weakness/numbness. She reports challenges with attending her therapy visits due to transportation as she is not driving and her is working. She has had to cancel appointments because of this. She is currently using wheeled walker for long distances but otherwise at home is not using any assist devices. She denies any recent injuries or falls since returning home. She notes increased fatigue and frequent napping. She attributes this to her history of sleep apnea and ill fitting mask. She recently underwent repeat sleep study and is awaiting to follow with sleep medicine specialist. She remains on aspirin and clopidegrol without reported bleeding complications. She was previously on daily aspirin regimen prior to stroke. She continues on atorvastatin 40 mg daily without ill effects. She reports a history of statin intolerance with prior itching but is tolerating without side effects. She reports difficulty managing her blood pressure prior to her stroke and notes this has improved since medication was added during her rehab stay. PAST MEDICAL HISTORY Diagnosis Date Bipolar I disorder, most recent episode (or current) unspecified Detrusor sphincter dyssynergia Headache has seen neurology and had mri, mra and mrv. HLD (hyperlipidemia) Major depressive disorder, single episode, unspecified Unspecified personal history presenting hazards to health PAST SURGICAL HISTORY Procedure Laterality Date CHOLECYSTECTOMY 1974 COLONOSCOPY 2001? COLONOSCOPY FLX DX W/COLLJ SPEC WHEN PFRMD 05/14/2014 Colonoscopy COLONOSCOPY FLX DX W/COLLJ SPEC WHEN PFRMD 07/03/2017 Colonoscopy ESOPHAGOGASTRODUODENOSCOPY TRANSORAL DIAGNOSTIC 07/03/2017 EGD ESOPHAGOGASTRODUODENOSCOPY TRANSORAL DIAGNOSTIC 06/22/2019 EGD PAST SURGICAL HISTORY OF 06/02/2017 sinus surgery PAST SURGICAL HISTORY OF 04/01/2018 uterine prolapse TOTAL ABDOMINAL HYSTERECT W/WO RMVL TUBE OVARY 1987 TAHBSO (benign), ovarian cysts, appendectomy FAMILY HISTORY Problem Relation Age of Onset Colon Cancer Mother Allergies Mother Heart disease Mother Diabetes Maternal Grandmother Coronary Artery Disease Maternal Grandmother Coronary Artery Disease Maternal Grandfather Coronary Artery Disease Father Hypertension Father Social History Tobacco Use Smoking status: Never Smokeless tobacco: Never Substance Use Topics Alcohol use: No Drug use: No MEDICATIONS Current Outpatient Medications Medication Sig pantoprazole DR (PROTONIX) 40 mg tablet Take 40 mg by mouth twice daily. amLODIPine (NORVASC) 2.5 mg tablet Take 1 tablet by mouth once daily. aspirin 81 mg chewable tablet 1 tablet by ORAL/FEEDING TUBE route once daily. atorvastatin (LIPITOR) 40 mg tablet Take 1 tablet by mouth daily at bedtime. famotidine (PEPCID) 40 mg tablet Take 1 tablet by mouth once daily. gabapentin (NEURONTIN) 300 mg capsule Take 1 capsule by mouth three times daily for 90 days. (Patient taking differently: Take 400 mg by mouth. Take on (more content not included)... [facility] CNOVon 05-04-2022 CN Office Visit (HUNTERWS ) SHIRA SHEN ([id number]) 1950 F NFR Date Time Provider Department 05/04/22 2:20 PM EULALIO SYKES During your visit today, we recorded the following information about you: Pulse Blood pressure Weight 64/minute 132/72 86.6 kg Eulalio Sykes MD 05/04/2022 2:59 PM Signed Patient presents with: Hospital F/U HPI: Patient presents today for office visit for hospital/Transitional care unit follow up. Not TCM. Discharged from TCU on 04/22: She was placed on dual antiplatelet therapy. Was already begun on lipitor as well. Began therapies at [facility] TCU. Had not been treating her sleep apnea. Has followed already with pulmonary for her JANE. They are going to repeat sleep study. Her pain on her right side was worse after the stroke, so gabapentin. She has a 30 day event recorder ordered and is to follow with cardiology. Also has an upcoming appt with neurology. Has also seen Dr. Pro for her bladder. She is unable to afford the medication she has given her Will be doing out patient therapy at [facility]. She is tired and not sleeping well. Still has slight facial droop on the right. Has numbness on the right side. Some weakness still in the right side. Some dizziness. No speech issues. Some issues with word finding and will be doing speech therapy. Using walker. No falls. Appetite is good. No chest pain No shortness of breath. No issues with urine. Using miralax for the bowels. See discharge summary from [place]: HOSPITAL COURSE: Shira Shen is a 71 year old female presented with past medical history of HTN, Hyperlipidemia, GERD, OA Bladder, Environmental Allergies, Bipolar 1 Disorder and Depression, who presented to the ED on 03/30/22 with right arm and leg weakness and numbness since the morning of 03/29/22. She reported that she when she was getting dressed, she developed a weird sensation. About 15 minutes later, she began to feel a pins and needles sensation in her right hand that radiated up her right arm and into her right face. About 30 minutes following this, she developed right leg numbness. She was seen at the [facility] ED on 03/29 and after a negative workup, she was discharged back home. Patient reported that by the morning of 03/31/22, she was having difficulty ambulating as her balance was off. She was also having difficulty grasping items in her right hand. Patient reported difficulty swallowing her pills. They felt stuck on the right side of my throat. This was not a new issue, she occasionally had dysphagia, but this was worse than normal. In the ED, she was afebrile with BP 145/77. K 4.1, Cr 0.7, WBC 6.1, Hgb 12.2, TSH 3.17. CT Brain showed NAD. CTA of Head/Neck showed a 17% stenosis of the Right ICA and 33% stenosis Left ICA, patent cervical vertebral arteries and bilateral MCA, bilateral 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 and right PICA stenoses. The case was discussed with Neurology and patient was outside the TNK window. DAPT was started. TeleNeurology was consulted. MRI of Brain showed an acute left thalamocapsular infarct. She had a history of allergies to statins (itching with Pravastatin noted in chart) and was on Colestipol. Discussed a trial of Atorvastatin to decrease her risk of another CVA. Colestipol discontinued and Atorvastatin 40 mg q HS ordered. Neurology ordered a Aspirin/Clopidogrel resistance test. Speech Therapy recommended a regular diet. PT/OT recommended Acute Rehab. ECHO ordered. 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) Assessment AND Plan: Continued right arm and leg weakness, difficulty with coordination and walking CT Brain showed NAD CTA of Head/Neck showed a 17% stenosis of the Right ICA and 33% stenosis Left ICA, patent cervical vertebral arteries and bilateral MCA, bilateral 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 and right PICA stenoses MRI of Brain showed an acute left thalamocapsular infarct ECHO pending TC 259/HDL 33/LDL 155/TG 356 HbA1c 6.0 Neurology consult reviewed Continue ASA/Plavix for 90 days Aspirin/Clopidogrel resistance test ordered Colestipol discontinued Atorvastatin 40 mg q HS started - tolerating Follow-up with Stroke Clinic PT/OT recommended Acute Rehab Active Problems: Right hemiparesis (HCC) Assessment AND Plan: As above Dysphagia Assessment AND Plan: Speech Therapy recommended regular diet and thin liquids Mixed hyperlipidemia Assessment AND Plan: Plan as above TC 259/HDL 33/LDL 155/TG 356 - on Colestipol D/Luis A Colestipol Atorvastatin 40mg q HS ordered Monitor for reaction Primary hypertension Assessment AND Plan: BP elevated Propranolol LA dose recently increased to 120 mg daily Add Amlodipine 2.5 mg daily Monitor Stenosis of cerebral artery Assessment AND Plan: As above Hyperactivity of bladder Assessment AND Plan: Continue Trospium for Detrol LA Monitor GERD (gastr (more content not included)... [facility] Amanda 04-26-2022 CNPN Telephone (FAMPWS) SHIRA SHEN ([id number]) 1950 F NFR Date Time Provider Department 04/26/22 EULALIO SYKES During your visit today, we recorded the following information about you: Laura Rubio ALFONSO 04/26/2022 10:42 AM Signed Left message for patient to call office. She was discharged from [facility] rehab on 04/21/22. Should make a hospital follow up visit for her to be seen. (Patient was admitted there for therapy following stroke that she was seen for at [facility].) Piedad Copeland RN 04/26/2022 11:21 AM Signed Patient calls and message reviewed. Appointment scheduled for 05/04/2022. Patient to phone back if appointment date/time doesn't work. Piedad Copeland RN Allergies As of Date: 04/26/2022 Noted Allergy Reaction PRAVACHOL (PRAVASTATIN) 11/20/2010 9 - Itching Comments: November 20, 2010 -- itching without rash TCRSRVI-ARL-YBD REDUCTASE INHIBIT*02/26/2014 9 - Itching 16 - Unknown CODEINE 03/21/2005 Comments: chest pain AND pressure DOXYCYCLINE 09/15/2018 2 - Rash Comments: Blisters in mouth LEVOFLOXACIN 05/18/2016 14 - Other: See Comments Comments: Itching. PENICILLINS 03/21/2005 2 - Rash Comments: Richie Has used cephalosporins SULFA (SULFONAMIDE ANTIBIOTICS) 03/21/2005 Comments: uticaria Date Reviewed: 04/02/2022 Reviewed by: Re Frank RN - Fully Assessed Reason for Visit: Hospital F/U [57] Prescriptions as of 04/26/2022 - amLODIPine (NORVASC) 2.5 mg tablet Take 1 tablet by mouth once daily. - aspirin 81 mg chewable tablet 1 tablet by ORAL/FEEDING TUBE route once daily. - atorvastatin (LIPITOR) 40 mg tablet Take 1 tablet by mouth daily at bedtime. - clopidogrel (PLAVIX) 75 mg tablet 1 tablet by ORAL/FEEDING TUBE route once daily for 86 doses. - famotidine (PEPCID) 40 mg tablet Take 1 tablet by mouth once daily. - gabapentin (NEURONTIN) 300 mg capsule Take 1 capsule by mouth three times daily for 90 days. - propranolol ER (INDERAL LA) 120 mg 24 hr capsule Take 1 capsule by mouth once daily. - sertraline (ZOLOFT) 25 mg tablet Take 25 mg by mouth twice daily. - montelukast (SINGULAIR) 10 mg tablet Take 1 tablet by mouth daily at bedtime. - tolterodine ER (DETROL LA) 4 mg 24 hr capsule Take 1 capsule by mouth once daily. - cranberry fruit extract (CRANBERRY ORAL) Take 1 tablet by mouth once daily. - fexofenadine HCl (JOVAN ORAL) Take 1 tablet by mouth once daily. - coenzyme Q10 (CO Q-10) 100 mg cap capsule Take 200 mg by mouth once daily. - fluticasone (FLONASE) 50 mcg/actuation nasal spray Use 2 Sprays in each nostril once daily. Rinse mouth after use. - COMPOUNDED PRESCRIPTION CPAP 9 cmH2O with humidification and a standard size ResMed AirFit N10 nasal mask without chin strap - acetaminophen (TYLENOL EXTRA STRENGTH) 500 mg tablet Take 2 tablets by mouth every 6 hours as needed for Pain. Take every 6 hours for first three days. Then take every 6 hours as needed. - docusate sodium (COLACE) 100 mg capsule Take 1 capsule by mouth twice daily as needed for Constipation. - polyethylene glycol 3350 (MIRALAX) 17 gram/dose powder Take 17 g by mouth once daily as needed (constipation). for constipation. - Ascorbic Acid (VITAMIN C) 500 mg cpER Take 1 Each by mouth once daily. - cholecalciferol (VITAMIN D) 1,000 unit tab tablet Take 1,000 Units by mouth once daily. - multivitamins(MULTIPLE VITAMIN TAB) Take one(1) tablet daily. Meds Comments as of 03/28/2022: Takes Apple Cider Vinegar capsules daily. 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.44] 12/13/2007 Bipolar I disorder (HCC) [F31.9] PERS HX HEALTH HAZARD NOS [Z91.89] 12/13/2007 Tuberculin test reaction [795.5] 12/13/2007 Panic disorder without agoraphobia [F41.0] 12/13/2007 Urinary frequency [R35.0] 03/29/2009 Hyperactivity of bladder [N31.8] 05/03/2009 Routine general medical examination at [facility]*05/19/2009 12/24/2014 Class: Chronic Routine gynecological examination [Z01.419] 05/19/2009 12/24/2014 Class: Chronic Impaired fasting glucose [R73.01] 05/19/2009 Mixed hyperlipidemia [E78.2] 05/16/2011 Family history of colon cancer [Z80.0] 02/26/2014 12/24/2014 Bilateral carotid artery stenosis [I65.23] 03/01/2017 Sicca syndrome (HCC) [M35.00] 03/01/2017 Headache [R51.9] 12/06/2017 GERD (gastroesophageal reflux disease) [K21.9] 06/24/2017 Lower abdominal pain [R10.30] 06/24/2017 12/06/2017 Tachycardia [R00.0] 06/28/2017 Rectocele [N81.6] 11/14/2017 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] 11/14/2017 OAB (overactive bladder) [N32.81] 11/14/2017 Urge incontinence [N39.41] 11/14/2017 Multiple gastric polyps [K31.7] 12/06/2017 Constipation [K59.00] 01/01/2018 Incontinence of feces [R15.9] 01/01/2018 JANE (obstructive sleep apnea) [G47.33] 05/23/2018 Brain cyst [G93 (more content not included)... [facility] 04-18-2022 [facility] Telephone ([facility]) SHIRA SHEN ([id number]) 1950 F NFR Date Time Provider Department 04/18/22 EULALIO SYKES [facility] During your visit today, we recorded the following information about you: Perla Bustamante 04/18/2022 2:40 PM Signed [facility] sent over medical release request for patients sleep study results. Faxed back to [phone]. Perla Bustamante Allergies As of Date: 04/18/2022 Noted Allergy Reaction PRAVACHOL (PRAVASTATIN) 11/20/2010 9 - Itching Comments: November 20, 2010 -- itching without rash DIPYORN-FSR-ABE REDUCTASE INHIBIT*02/26/2014 9 - Itching 16 - Unknown CODEINE 03/21/2005 Comments: chest pain AND pressure DOXYCYCLINE 09/15/2018 2 - Rash Comments: Blisters in mouth LEVOFLOXACIN 05/18/2016 14 - Other: See Comments Comments: Itching. PENICILLINS 03/21/2005 2 - Rash Comments: darren AND edwinasuni Has used cephalosporins SULFA (SULFONAMIDE ANTIBIOTICS) 03/21/2005 Comments: uticaria Date Reviewed: 04/02/2022 Reviewed by: Re Frank RN - Fully Assessed Reason for Visit: Release Of Medical Records [2017] Prescriptions as of 04/18/2022 - amLODIPine (NORVASC) 2.5 mg tablet Take 1 tablet by mouth once daily. - aspirin 81 mg chewable tablet 1 tablet by ORAL/FEEDING TUBE route once daily. - atorvastatin (LIPITOR) 40 mg tablet Take 1 tablet by mouth daily at bedtime. - clopidogrel (PLAVIX) 75 mg tablet 1 tablet by ORAL/FEEDING TUBE route once daily for 86 doses. - famotidine (PEPCID) 40 mg tablet Take 1 tablet by mouth once daily. - gabapentin (NEURONTIN) 300 mg capsule Take 1 capsule by mouth three times daily for 90 days. - propranolol ER (INDERAL LA) 120 mg 24 hr capsule Take 1 capsule by mouth once daily. - sertraline (ZOLOFT) 25 mg tablet Take 25 mg by mouth twice daily. - montelukast (SINGULAIR) 10 mg tablet Take 1 tablet by mouth daily at bedtime. - tolterodine ER (DETROL LA) 4 mg 24 hr capsule Take 1 capsule by mouth once daily. - cranberry fruit extract (CRANBERRY ORAL) Take 1 tablet by mouth once daily. - fexofenadine HCl (JOVAN ORAL) Take 1 tablet by mouth once daily. - coenzyme Q10 (CO Q-10) 100 mg cap capsule Take 200 mg by mouth once daily. - fluticasone (FLONASE) 50 mcg/actuation nasal spray Use 2 Sprays in each nostril once daily. Rinse mouth after use. - COMPOUNDED PRESCRIPTION CPAP 9 cmH2O with humidification and a standard size ResMed AirFit N10 nasal mask without chin strap - acetaminophen (TYLENOL EXTRA STRENGTH) 500 mg tablet Take 2 tablets by mouth every 6 hours as needed for Pain. Take every 6 hours for first three days. Then take every 6 hours as needed. - docusate sodium (COLACE) 100 mg capsule Take 1 capsule by mouth twice daily as needed for Constipation. - polyethylene glycol 3350 (MIRALAX) 17 gram/dose powder Take 17 g by mouth once daily as needed (constipation). for constipation. - Ascorbic Acid (VITAMIN C) 500 mg cpER Take 1 Each by mouth once daily. - cholecalciferol (VITAMIN D) 1,000 unit tab tablet Take 1,000 Units by mouth once daily. - multivitamins(MULTIPLE VITAMIN TAB) Take one(1) tablet daily. Meds Comments as of 03/28/2022: Takes Apple Cider Vinegar capsules daily. 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] 12/13/2007 Bipolar I disorder (HCC) [F31.9] PERS HEALTH HAZARD NOS [Z91.89] 12/13/2007 Tuberculin test reaction [795.5] 12/13/2007 Panic disorder without agoraphobia [F41.0] 12/13/2007 Urinary frequency [R35.0] 03/29/2009 Hyperactivity of bladder [N31.8] 05/03/2009 Routine general medical examination at [facility]*05/19/2009 12/24/2014 Class: Chronic Routine gynecological examination [Z01.419] 05/19/2009 12/24/2014 Class: Chronic Impaired fasting glucose [R73.01] 05/19/2009 Mixed hyperlipidemia [E78.2] 05/16/2011 Family history of colon cancer [Z80.0] 02/26/2014 12/24/2014 Bilateral carotid artery stenosis [I65.23] 03/01/2017 Sicca syndrome (HCC) [M35.00] 03/01/2017 Headache [R51.9] 12/06/2017 GERD (gastroesophageal reflux disease) [K21.9] 06/24/2017 Lower abdominal pain [R10.30] 06/24/2017 12/06/2017 Tachycardia [R00.0] 06/28/2017 Rectocele [N81.6] 11/14/2017 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] 11/14/2017 OAB (overactive bladder) [N32.81] 11/14/2017 Urge incontinence [N39.41] 11/14/2017 Multiple gastric polyps [K31.7] 12/06/2017 Constipation [K59.00] 01/01/2018 Incontinence of feces [R15.9] 01/01/2018 JANE (obstructive sleep apnea) [G47.33] 05/23/2018 Brain cyst [G93.0] 06/10/2019 Vertigo [R42] 06/17/2019 Atrophic vaginitis [N95.2] 08/24/2020 Nocturia [R35.1] 08/24/2020 Feeling of incomplete bladder emptying [R39.14] 08/24/2020 Shoulder strain, left, initial encounter [S46.9*07/13/2021 Neck pain on left side [M54.2] 07/13/2021 Stenosis of cerebral a (more content not included)... [facility] Basophil percentageon 2021 Chloride [Moles/Vol] 104 mmol/L 98-107 [facility] Work Phone: Glucose [Mass/Vol] 121 mg/dL 74-106 [facility] Work Phone: Comment on above: Fasting Glucose resu lt from 100 to 125 mg/dL suggests IMPAIRED HOMEOSTASIS per A.D.A. criteria. Potassium [Moles/Vol] 4.5 mmol/L 3.5-5.1 [facility] Work Phone: Sodium [Moles/Vol] 139 mmol/L 136-145 [facility] Work Phone: Blood hemoglobin measurement (mass/volume)on 04-17-2022 Hemoglobin (Bld) [Mass/Vol] 11.1 g/dL 12.0-15.0 [facility] Work Phone: Hematocrit Auto (Bld) [Volum e fraction]on 04-17-2022 Hematocrit (Bld) [Volume fraction] 35.3 % 37-47 [facility] Work Phone: Laboratory - Chemistry and C hemistry - challengeon 04-17-2022 CO2 [Moles/Vol] 31.0 mmol/L 21.0-32.0 [facility] Work Phone: Urea nitrogen/Creatinine [Mass ratio] 21.2 mg/mg 10-20 [facility] Work Phone: No Panel Informationon 04-17 Estimated Creatinine Clearance Calc 57.31 ml/min [facility] Work Phone: Estimated GFR (MDRD) Amer 91 mL/min >60 [facility] Work Phone: Comment on above: GFR Calc Estimated GFR (MDRD) Non-Af Amer 75 mL/min >60 [facility] Work Phone: Comment on above: Non- GFR Calc Thyroid Stimulating Hormone (TSH) 3.14 uIU/mL 0.358-3.74 [facility] Work Phone: Serum or plasma calcium corazon urement (mass/volume)on 04-17-2022 Calcium [Mass/Vol] 9.2 mg/dL 8.5-10.1 [facility] Work Phone: Serum or plasma creatinine m easurement (mass/volume)on 04-17-2022 Creatinine [Mass/Vol] 0.80 mg/dL 0.55-1.02 [facility] Work Phone: Comment on above: The validity of the calculated GFR & GFRAA in patients over 70 years has not been determined. Clinical correlation is essential. Serum or plasma urea nitroge n measurement (mass/volume)on 04-17-2022 Urea nitrogen [Mass/Vol] 17 mg/dL 7-18 [facility] Work Phone: Thin prep Papanicolaou smear with manual screeningon 04-17-2022 Thin prep Papanicolaou smear with manual screening 4 5-15 [facility] Work Phone: Whole blood hemoglobin A1c/t otal hemoglobin ratio (mass fraction)on 04-17-2022 HbA1c (Bld) [Mass fraction] 6.0 % 3.8-5.6 [facility] Work Phone: [phone] Comment on above: Normal < 5.7 % Predi abetic 5.7 - 6.4 % Diabetic >or= 6.5 % Please note range changes. Absolute lymphocyte counton 04-04-2022 Lymphocytes Auto (Unsp spec) [#/Vol] 3.39 10*3/uL 0.83-4.51 [facility] Work Phone: Basophil percentageon 2021 Basophil percentage 3.7 mg/dL 2.5-4.9 [facility] Work Phone: Basophils/100 WBC (Bld) 0.5 % 0-1 [facility] Work Phone: Bilirubin [Mass/Vol] 0.30 mg/dL 0.20-1.00 [facility] Work Phone: [phone] Comment on above: For patients on eltr ombopag therapy, use of Dimension [employer] TBIL is not recommended. Eosinophils/100 WBC (Bld) 2.6 % 0-5 [facility] Work Phone: Neutrophils (Bld) [#/Vol] 2.9 10*3/uL 2.0-7.7 [facility] Work Phone: Neutrophils/100 WBC (Bld) 40.0 % 47-70 [facility] Work Phone: Protein [Mass/Vol] 7.1 g/dL 6.4-8.2 [facility] Work Phone: WBC (Bld) [#/Vol] 7.4 10*3/uL 4.4-11.0 [facility] Work Phone: Blood erythrocytes count (nu mber/volume)on 04-04-2022 RBC (Bld) [#/Vol] 3.79 10*6/uL 4.2-5.4 [facility] Work Phone: Blood lymphocytes/100 leukoc yteson 04-04-2022 Lymphocytes/100 WBC (Bld) 46.1 % 19-41 [facility] Work Phone: Blood monocytes/100 leukocyt eson 04-04-2022 Monocytes/100 WBC (Bld) 10.5 % 0-10 [facility] Work Phone: Blood platelet mean volumeon 04-04-2022 Platelet mean volume (Bld) [Entitic vol] 10.4 fL 6.2-12.0 [facility] Work Phone: Determination of erythrocyte mean corpuscular volume (MCV)on 04-04-2022 MCV (RBC) [Entitic vol] 93.4 fL 81-99 [facility] Work Phone: [phone] Laboratory - Chemistry and C hemistry - challengeon 04-04-2022 ALP [Catalytic activity/Vol] 76 U/L 45-117 [facility] Work Phone: ALT [Catalytic activity/Vol] 62 U/L 13-56 [facility] Work Phone: [phone] Globulin (S) [Mass/Vol] 3.9 g/dL 2.2-4.2 [facility] Work Phone: [phone] Magnesium [Mass/Vol] 2.1 mg/dL 1.6-2.6 [facility] Work Phone: [phone] Laboratory - Hematology and Cell countson 04-04-2022 Erythrocyte distribution width (RBC) [Entitic vol] 43.8 fL 35.1-43.9 [facility] Work Phone: [phone] Erythrocyte distribution width (RBC) [Ratio] 12.9 % 11.6-14.6 [facility] Work Phone: [phone] Immature granulocytes/100 WBC (Bld) 0.300 % 0.0-0.9 [facility] Work Phone: [phone] Comment on above: IG% - Immature Granu locytes (promyelocytes, myelocytes and metamyelocytes) > 1% indicates that a LEFT SHIFT is Present. MCH (RBC) [Entitic mass] 29.6 pg 27.0-32.0 [facility] Work Phone: Nucleated RBC/100 WBC (Bld) [Ratio] 0 % 0-5 [facility] Work Phone: MCHC Auto (RBC) [Mass/Vol]on 04-04-2022 MCHC (RBC) [Mass/Vol] 31.6 g/dL 32-36 [facility] Work Phone: Platelets bldon 04-04-2022 Platelets (Bld) [#/Vol] 210 10*3/uL 150-450 [facility] Work Phone: Serum or plasma albumin corazon urement (mass/volume)on 04-04-2022 Albumin [Mass/Vol] 3.2 g/dL 3.2-5.0 [facility] Work Phone: Serum or plasma albumin/glob ulin mass ratioon 04-04-2022 Albumin/Globulin [Mass ratio] 0.8 {ratio} 0.9-2.4 [facility] Work Phone: Thin prep Papanicolaou smear with manual screeningon 04-04-2022 Thin prep Papanicolaou smear with manual screening 53 U/L 15-37 [facility] Work Phone: CASE MANAGEMon 04-03-2022 CASE MANAGEM HNO ID: [id number] Author: KEMAR Davidson Service: Case Management Author Type: Early Interventionist Type: Care Mgt Progress Note Filed: 04/03/2022 2:09 PM Note Text: CARE MANAGEMENT DISCHARGE NOTE SERVICE DATE: 04/03/2022 SERVICE TIME: 2:07 PM LOS: 4 days Admission Date: 03/30/2022 DISCHARGE ARRANGEMENT (list agency and phone number) Discharge Arrangement: Acute Care Hospital Provider Name: [facility] CAREGIVER ASSESSMENT: Caregiver is ready, willing and able to meet the patient's needs as recommended by the inter-professional team:: Yes HANDOFF COMMUNICATION: Handoff to: Primary Care Physician Primary Care Physician Name/Phone: Dr. Eulalio Sykes [phone] TRANSPORTATION ARRANGEMENTS: ADDITIONAL CONTACT RESOURCES: Discharge Information Row Name ED to Hosp-Admission (Current) from 03/30/2022 in [facility] Agency [facility] IMM Follow Up Copy Given: Yes Copy given to:: Patient Method: By Phone Discharge today to [facility]. Discharge orders sent to AR. Sent summary of care to PCP and AR. Family to transport. IM letter given. SIGNATURE: KEMAR Davidson PATIENT NAME: Shira Shen DATE: April 03, 2022 TIME: 2:07 PM PAGER/CONTACT #: [phone] Normal [facility] CBC panel Auto (Bld)on 04-03 Erythrocyte distribution width (RBC) [Ratio] 13.0 % Normal 11.5-15.0 [facility] Comment on above: Order Comment: Eric trejo Type: BLOOD SPECIMENOrdering Facility: [facility] Address: [address] [place] [address] Performed By: #### 5 8410-2 ####[facility] LABORATORYCLIA [id number] [address] STATES OF [facility] Hematocrit (Bld) [Volume fraction] 38.1 % Normal 36.0-46.0 [facility] Comment on above: Order Comment: Eric trejo Type: BLOOD SPECIMENOrdering Facility: [facility] Address: [address] [place] [address] Performed By: #### 5 8410-2 ####CHRIS LABORATORYCLIA [id number] [address] [place] Hemoglobin (Bld) [Mass/Vol] 12.3 g/dL Normal 11.5-15.5 [facility] Comment on above: Order Comment: Eric trejo Type: BLOOD SPECIMENOrdering Facility: [facility] Address: [address] [place] [address] Performed By: #### 5 8410-2 ####CHRIS LABORATORYCLIA [id number] [address] [place] MCH (RBC) [Entitic mass] 29.6 pg Normal 26.0-34.0 [facility] Comment on above: Order Comment: Eric trejo Type: BLOOD SPECIMENOrdering Facility: [facility] Address: [address] [place] [address] Performed By: #### 5 8410-2 ####CHRIS LABORATORYCLIA [id number] [address] MCHC (RBC) [Mass/Vol] 32.3 g/dL Normal 30.5-36.0 [facility] Comment on above: Order Comment: Speci men Type: BLOOD SPECIMENOrdering Facility: [facility] Address: [address] [place] [address] Performed By: #### 5 8410-2 ####CHRIS LABORATORYCLIA [id number] [address] MCV (RBC) [Entitic vol] 91.8 fL Normal 80.0-100.0 [facility] Comment on above: Order Comment: Speci men Type: BLOOD SPECIMENOrdering Facility: [facility] Address: [address] [place] [address] Performed By: #### 5 8410-2 ####CHRIS LABORATORYCLIA [id number] [address] Nucleated RBC (Bld) [#/Vol] 10*3/uL Normal <0.01 [facility] Comment on above: Order Comment: Speci men Type: BLOOD SPECIMENOrdering Facility: [facility] Address: [address] [place] [address] Performed By: #### 5 8410-2 ####CHRIS LABORATORYCLIA [id number] [address] Platelet mean volume (Bld) [Entitic vol] 10.5 fL Normal 9.0-12.7 [facility] Comment on above: Order Comment: Speci men Type: BLOOD SPECIMENOrdering Facility: [facility] Address: [address] [place] [address] Performed By: #### 5 8410-2 ####CHRIS LABORATORYCLIA [id number] [address] Platelets (Bld) [#/Vol] 228 10*3/uL Normal 150-400 [facility] Comment on above: Order Comment: Speci men Type: BLOOD SPECIMENOrdering Facility: [facility] Address: [address] [place] [address] Performed By: #### 5 8410-2 ####CHRIS LABORATORYCLIA [id number] [address] RBC (Bld) [#/Vol] 4.15 10*6/uL Normal 3.90-5.20 [facility] Comment on above: Order Comment: Speci men Type: BLOOD SPECIMENOrdering Facility: [facility] Address: [address] [place] [address] Performed By: #### 5 8410-2 ####[facility] LABORATORYCLIA [id number] [address] WBC (Bld) [#/Vol] 7.30 10*3/uL Normal 3.70-11.00 [facility] Comment on above: Order Comment: Speci men Type: BLOOD SPECIMENOrdering Facility: [facility] Address: [address] [place] [address] Performed By: #### 5 8410-2 ####CHRIS LABORATORYCLIA [id number] [address] CNDSon 04-03-2022 CNDS HNO ID: [id number] Author: Edward Cobian MD Service: Hospital Medicine Author Type: Physician Type: Discharge Summary Filed: 04/03/2022 2:52 PM Note Text: DISCHARGE SUMMARY PATIENT NAME: Shira Shen Code Status: Not on file Highest Readmission Risk Score: 14 The 30 day readmissions risk score is derived from an internally validated risk model which evaluates patient level characteristics, utilization history, medication orders and lab results up until the day of discharge. Patients with a score of 40 or above are considered highest risk for readmission. Specific patient level drivers will be listed at the bottom of the summary. Admission Information Admission Information ADMIT DATE: 03/30/2022 DISCHARGE DATE: 04/03/2022 MY DOCTORS AND MEDICAL TEAM: My Main Hospital Doctor: Edward Cobian MD Primary Care Provider: Eulalio Sykes MD My Medical Team Members: Treatment Team: Attending Provider: Edward Cobian MD MY CONDITION AT DISCHARGE: Stable REASON I WAS IN THE HOSPITAL: Acute thalamic stroke SUMMARY OF WHAT HAPPENED WHILE I WAS IN THE HOSPITAL: MRI done and found to have a thalamic stroke. Some weakness on the right side consistent with findings on the MRI along with some difficulty swallowing. To take Plavix for 90 days and stay on aspirin indefinitely. Evaluated by PT and OT and felt appropriate to go to rehab. Accepted and stable for discharge. OTHER PROBLEMS/DIAGNOSIS: 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) Active Problems: Bipolar I disorder (HCC) Hyperactivity of bladder Mixed hyperlipidemia GERD (gastroesophageal reflux disease) Stenosis of cerebral artery Dysphagia Primary hypertension Right hemiparesis (HCC) Obesity, Class I, BMI 30-34.9 Resolved Problems: * No resolved hospital problems. * OPERATIONS PERFORMED WHILE IN THE HOSPITAL: None IMPORTANT TEST/PROCEDURES: Echocardiogram TEST RESULTS NOT AVAILABLE AT THIS TIME: No pending results Discharge Disposition Discharge Disposition: Inpatient Rehab Activity When You Leave the Hospital Resume pre-hospital activity Diet Instructions Other: Diet Recommendations: Regular Consistency;Thin Liquids IDDSI Level 0;Medications whole in puree (pudding/applesauce) For Pain When You Leave the Hospital Use acetaminophen (Tylenol) as recommended on the bottle Follow Up Appointments Follow-Up Appointment When: In 3 weeks Patient/Parents to call for appointment?: Yes Eulalio Sykes MD [phone] [address] [facility] [address] PCP Requested Referral Follow-Up Appointment With: stroke clinic When: In 4 weeks Patient/Parents to call for appointment?: Yes Additional Provider to Provider Information: PLAN - Patient accepted in rehab and her family will take her - Follow-up in neurology clinic/stroke in 1 month ? Diet Recommendations: Regular Consistency;Thin Liquids IDDSI Level 0;Medications whole in puree (pudding/applesauce) Reason for Admission: Acute stroke Consultants: Dr. Rivera for neurology PROCEDURES: NONE Disposition: Extended Care Facility EK04/01/2022 sinus rhythm left axis deviation right bundle branch block with LVH ECHO: 04/02/2022 - The left ventricle is normal in size. Left ventricular systolic function is normal. EF = 68 ? 5% (2D biplane) Normal left ventricular diastolic function. - The right ventricle is normal in size. Right ventricular systolic function is normal. - Trivial mitral reugurgitation. - Trivial tricuspid regurgitation. - There is no patent foramen ovale as detected by Doppler and saline contrast with valsalva. - Saline bubble study is negative for shunt. Recent Labs 04/03/2244704/02/220 04/01/22 0639 03/31/22 0332 03/30/22 2216 03/30/22 1519 TROPT -- -- -- <0.010 <0.010 <0.010 MCV 91.8 91.4 92.0 92.1 -- 91.2 MCH 29.6 29.2 29.8 29.6 -- 29.8 MPV 10.5 10.7 11.0 10.7 -- 10.8 Recent Labs 04/03/2244704/02/22 0430 04/01/22 0639 WBC 7.30 7.26 7.23 RBC 4.15 4.07 4.23 HB 12.3 11.9 12.6 HCT 38.1 37.2 38.9 PLT 228 206 222 MCV 91.8 91.4 92.0 MCH 29.6 29.2 29.8 MPV 10.5 10.7 11.0 Recent Labs 04/03/2244704/02/220 04/01/22 0639 GLUC 130* 123* 132* NA 142 141 140 K 4.5 4.4 4.1 CHLOR 103 104 102 CO2 29 29 25 CREAT 0.75 0.72 0.62 BUN 19 16 15 ANION 10 8* 13 CA 10.3* 9.8 10.3* TPROT 7.5 7.0 7.9 ALB 4.2 4.0 4.4 TBILI 0.3 0.3 0.3 ALKPHOS 84 73 84 AST 56* 53* 64* ALT 50* 46* 51* Recent Labs 04/03/2244704/02/22 0430 04/01/22 0639 BUN 19 16 15 CREAT 0.75 0.72 0.62 CA 10.3* 9.8 10.3* MG 2.0 2.0 2.1 Most recent labs HOSPITAL COURSE: Shira Shen is a 71 year old female presented with past medical history of HTN, Hyperlipidemia, GERD, OA Bladder, Environmental Allergies, Bipolar 1 Disorder and Depression, who presented to the ED on 03/30/22 with right arm and leg weakness a (more content not included)... Normal [facility] Comprehensive metabolic 2000 panelon 04-03-2022 Albumin [Mass/Vol] 4.2 g/dL Normal 3.9-4.9 [facility] Comment on above: Order Comment: Speci men Type: BLOOD SPECIMENOrdering Facility: [facility] Address: [address] [place] [address] Performed By: #### 2 4323-8, ####CHRIS LABORATORYCLIA [id number] [place] [address] [place] [facility] ALP [Catalytic activity/Vol] 84 U/L Normal 34-123 [facility] Comment on above: Order Comment: Speci men Type: BLOOD SPECIMENOrdering Facility: [facility] Address: [address] [place] [address] Performed By: #### 2 4328, ####CHRIS LABORATORYCLIA [id number] [place] [address] [place] ALT [Catalytic activity/Vol] 50 U/L High 7-38 [facility] Comment on above: Order Comment: Speci men Type: BLOOD SPECIMENOrdering Facility: [facility] Address: [address] [place] [address] Performed By: #### 2 4323-8, ####CHRIS LABORATORYCLIA [id number] [place] [address] [place] [facility] Anion gap [Moles/Vol] 10 mmol/L Normal 9-18 [facility] Comment on above: Order Comment: Speci men Type: BLOOD SPECIMENOrdering Facility: [facility] Address: [address] [place] [address] Performed By: #### 2 432-8, ####CHRIS LABORATORYCLIA [id number] [place] [address] [place] AST [Catalytic activity/Vol] 56 U/L High 13-35 [facility] Comment on above: Order Comment: Speci men Type: BLOOD SPECIMENOrdering Facility: [facility] Address: [address] [address] Performed By: #### 2 4322-8, ####CHRIS LABORATORYCLIA [id number] [place] [address] [place] Bilirubin [Mass/Vol] 0.3 mg/dL Normal 0.2-1.3 [facility] Comment on above: Order Comment: Speci men Type: BLOOD SPECIMENOrdering Facility: [facility] Address: [address] [place] [address] Performed By: #### 2 8, ####CHRIS LABORATORYCLIA [id number] [place] [address] [place] Calcium [Mass/Vol] 10.3 mg/dL High 8.5-10.2 [facility] Comment on above: Order Comment: Speci men Type: BLOOD SPECIMENOrdering Facility: [facility] Address: [address] [place] [address] Performed By: #### 2 8, ####CHRIS LABORATORYCLIA [id number] [place] [address] [place] Chloride [Moles/Vol] 103 mmol/L Normal 97-105 [facility] Comment on above: Order Comment: Speci men Type: BLOOD SPECIMENOrdering Facility: [facility] Address: [address] [place] [address] Performed By: #### 2 8, ####CHRIS LABORATORYCLIA [id number] [place] [address] [place] CO2 [Moles/Vol] 29 mmol/L Normal 22-30 [facility] Comment on above: Order Comment: Speci men Type: BLOOD SPECIMENOrdering Facility: [facility] Address: [address] [place] [address] Performed By: #### 2 4323-8, ####CHRIS LABORATORYCLIA [id number] [place] [address] [place] Creatinine [Mass/Vol] 0.75 mg/dL Normal 0.58-0.96 [facility] Comment on above: Order Comment: Eric trejo Type: BLOOD SPECIMENOrdering Facility: [facility] Address: [address] [phone] Performed By: #### 2 4323-8, ####[facility] LABORATORYCLIA [id number] [place] [address] [facility] ESTIMATED GLOMERULAR FILTRATION RATE 86 mL/min/1.73m??? Normal >=60 [facility] Comment on above: Order Comment: Eric trejo Type: BLOOD SPECIMENOrdering Facility: [facility] Address: [address] [place] [address] Result Comment: Gissel mated Glomerular Filtration Rate (eGFR) is calculated using the 2020 CKD-EPI creatinine equation. This equation utilizes serum creatinine, sex, and age as parameters. The creatinine assay has traceable calibration to isotope dilution-mass spectrometry. Refer to KDIGO guidelines for clinical interpretation. In patients with unstable renal function, e.g. those with acute kidney injury, the eGFR may not accurately reflect actual GFR. Performed By: #### 2 4323-8, ####CHRIS LABORATORYCLIA [id number] [place] [address] [place] Glucose [Mass/Vol] 130 mg/dL High 74-99 [facility] Comment on above: Order Comment: Eric trejo Type: BLOOD SPECIMENOrdering Facility: [facility] Address: [address] [phone] Result Comment: The [place] Diabetes [employer] (ADA) provides guidance for cutoff values for fasting glucose and random glucose. The ADA defines fasting as no caloric intake for at least 8 hours. Fasting plasma glucose results between 100 to 125 mg/dL indicate increased risk for diabetes (prediabetes). Fasting plasma glucose results greater than or equal to 126 mg/dL meet the criteria for diagnosis of diabetes. In the absence of unequivocal hyperglycemia, results should be confirmed by repeat testing. In a patient with classic symptoms of hyperglycemia or hyperglycemic crisis, random plasma glucose results greater than or equal to 200 mg/dL meet the criteria for diagnosis of diabetes. Reference: Standards of Medical Care in Diabetes 2016, [place] [employer]. Diabetes Care. 2016.39(Suppl 1). Performed By: #### 2 4328, ####CHRIS LABORATORYCLIA [id number] [place] [address] [place] Potassium [Moles/Vol] 4.5 mmol/L Normal 3.7-5.1 [facility] Comment on above: Order Comment: Speci men Type: BLOOD SPECIMENOrdering Facility: [facility] Address: [address] [place] [address] Performed By: #### 2 43211-07, ####CHRIS LABORATORYCLIA [id number] [place] [address] [place] Protein [Mass/Vol] 7.5 g/dL Normal 6.3-8.0 [facility] Comment on above: Order Comment: Speci men Type: BLOOD SPECIMENOrdering Facility: [facility] Address: [address] [place] [address] Performed By: #### 2 4323-04, ####CHRIS LABORATORYCLIA [id number] [place] [address] [place] Sodium [Moles/Vol] 142 mmol/L Normal 136-144 [facility] Comment on above: Order Comment: Speci men Type: BLOOD SPECIMENOrdering Facility: [facility] Address: [address] [place] [address] Performed By: #### 2 4323-04, ####CHRIS LABORATORYCLIA [id number] [place] [address] [place] Urea nitrogen [Mass/Vol] 19 mg/dL Normal 7-21 [facility] Comment on above: Order Comment: Speci men Type: BLOOD SPECIMENOrdering Facility: [facility] Address: [address] [place] [address] Performed By: #### 2 43211-07, ####CHRIS LABORATORYCLIA [id number] [place] [address] [place] Magnesium SerPl-mCncon 04-03 Magnesium [Mass/Vol] 2.0 mg/dL Normal 1.7-2.3 [facility] Comment on above: Order Comment: Speci men Type: BLOOD SPECIMENOrdering Facility: [facility] Address: [address] [place] [address] Performed By: #### 2 4323-8, 48071-9 ####CHRIS LABORATORYCLIA [id number] [address] OF [place] CASE MANAGEMon 04-02-2022 CASE MANAGEM HNO ID: [id number] Author: Anne Baca RN Service: Case Management Author Type: Registered Nurse Type: Care Mgt Progress Note Filed: 04/02/2022 10:38 AM Note Text: CARE MANAGEMENT PROGRESS NOTE SERVICE DATE: 04/02/2022 SERVICE TIME: 10:37 AM LOS: 3 days Needs Prior to Discharge: Precertification;Other: See Comment (medical clearance) EMR reviewed. [facility] accept. [facility] tasked to start precert. CM assigned will continue to follow for DC planning needs. SIGNATURE: Anne Baca RN PATIENT NAME: Shira Shen DATE: April 02, 2022 TIME: 10:37 AM PAGER/CONTACT #: [phone] Normal [facility] CBC panel Auto (Bld)on 04-02 Erythrocyte distribution width (RBC) [Ratio] 13.0 % Normal 11.5-15.0 [facility] Comment on above: Order Comment: Speci men Type: BLOOD SPECIMENOrdering Facility: [facility] Address: [address] [place] [address] Performed By: #### 5 8410-2 ####CHRIS LABORATORYCLIA [id number] [address] Hematocrit (Bld) [Volume fraction] 37.2 % Normal 36.0-46.0 [facility] Comment on above: Order Comment: Speci men Type: BLOOD SPECIMENOrdering Facility: [facility] Address: [address] [place] [address] Performed By: #### 5 8410-2 ####CH[facility] LABORATORYCLIA [id number] [address] Hemoglobin (Bld) [Mass/Vol] 11.9 g/dL Normal 11.5-15.5 [facility] Comment on above: Order Comment: Speci men Type: BLOOD SPECIMENOrdering Facility: [facility] Address: [address] [place] [address] Performed By: #### 5 8410-2 ####[facility]IS LABORATORYCLIA [id number] [address] MCH (RBC) [Entitic mass] 29.2 pg Normal 26.0-34.0 [facility] Comment on above: Order Comment: Speci men Type: BLOOD SPECIMENOrdering Facility: [facility] Address: [address] [place] [address] Performed By: #### 5 8410-2 ####CHRIS LABORATORYCLIA [id number] [address] MCHC (RBC) [Mass/Vol] 32.0 g/dL Normal 30.5-36.0 [facility] Comment on above: Order Comment: Speci men Type: BLOOD SPECIMENOrdering Facility: [facility] Address: [address] [place] [address] Performed By: #### 5 8410-2 ####CHRIS LABORATORYCLIA [id number] [address] MCV (RBC) [Entitic vol] 91.4 fL Normal 80.0-100.0 [facility] Comment on above: Order Comment: Speci men Type: BLOOD SPECIMENOrdering Facility: [facility] Address: [address] [place] [address] Performed By: #### 5 8410-2 ####CHRIS LABORATORYCLIA [id number] [address] Nucleated RBC (Bld) [#/Vol] 10*3/uL Normal <0.01 [facility] Comment on above: Order Comment: Speci men Type: BLOOD SPECIMENOrdering Facility: [facility] Address: [address] [place] [address] Performed By: #### 5 8410-2 ####CHRIS LABORATORYCLIA [id number] [address] [place] Platelet mean volume (Bld) [Entitic vol] 10.7 fL Normal 9.0-12.7 [facility] Comment on above: Order Comment: Speci men Type: BLOOD SPECIMENOrdering Facility: [facility] Address: [address] [place] [address] Performed By: #### 5 8410-2 ####[facility] LABORATORYCLIA [id number] [place] [address] [facility] [place] Platelets (Bld) [#/Vol] 206 10*3/uL Normal 150-400 [facility] Comment on above: Order Comment: Speci men Type: BLOOD SPECIMENOrdering Facility: [facility] Address: [address] [place] [address] Performed By: #### 5 8410-2 ####[facility] LABORATORYCLIA [id number] [address] OF [facility] RBC (Bld) [#/Vol] 4.07 10*6/uL Normal 3.90-5.20 [facility] Comment on above: Order Comment: Speci men Type: BLOOD SPECIMENOrdering Facility: [facility] Address: [address] [place] [address] Performed By: #### 5 8410-2 ####CHRIS LABORATORYCLIA [id number] [address] OF [place] WBC (Bld) [#/Vol] 7.26 10*3/uL Normal 3.70-11.00 [facility] Comment on above: Order Comment: Speci men Type: BLOOD SPECIMENOrdering Facility: [facility] Address: [address] [place] [address] Performed By: #### 5 8410-2 ####CHRIS LABORATORYCLIA [id number] [address] CONSULT PROGon 04-02-2022 CONSULT PROG HNO ID: [id number] Author: Milly Rivera MD Service: Neurology General Author Type: Physician Type: Consult Progress Note Filed: 04/02/2022 2:30 PM Note Text: TELENEUROLOGY CONSULT PROGRESS NOTE Patient seen using [facility]. Recommendations are placed in the chart. Please review. For questions after hours, when teleneurologist is not available, for [facility]: Please Page [phone] for the [facility] from 5pm to 8am Please follow normal inpatient acute stroke procedures per routine as needed. SERVICE DATE: 04/02/2022 SERVICE TIME: 2:29 PM Results of ECHO reviewed and the recommendations are: ? OK to discharge from neurology standpoint. ? Follow up at neurology/stroke clinic in a month Teleneurology will not follow this patient. Please call for additional assistance. SIGNATURE: Milly Rivera MD PATIENT NAME: Shira Shen DATE: April 02, 2022 TIME: 2:29 PM PAGER/CONTACT #: Normal [facility] Comprehensive metabolic 2000 panelon 04-02-2022 Albumin [Mass/Vol] 4.0 g/dL Normal 3.9-4.9 [facility] Comment on above: Order Comment: Specgayle trejo Type: BLOOD SPECIMENOrdering Facility: [facility] Address: [address] [place] [address] Performed By: #### 1 9123-9, 63614-4 ####[facility] LABORATORYCLIA [id number] [place] [address] [place] ALP [Catalytic activity/Vol] 73 U/L Normal 34-123 [facility] Comment on above: Order Comment: Eric trejo Type: BLOOD SPECIMENOrdering Facility: [facility] Address: [address] [address] Performed By: #### 1 9123-9, 81324-9 ####[facility] LABORATORYCLIA [id number] [place] [address] [place] ALT [Catalytic activity/Vol] 46 U/L High 7-38 [facility] Comment on above: Order Comment: Eric trejo Type: BLOOD SPECIMENOrdering Facility: [facility] Address: [address] [address] Performed By: #### 1 91239, ####[facility] LABORATORYCLIA [id number] [place] [address] [place] Anion gap [Moles/Vol] 8 mmol/L Low 9-18 [facility] Comment on above: Order Comment: Speci men Type: BLOOD SPECIMENOrdering Facility: [facility] Address: [address] [place] [address] Performed By: #### 1 23-9, ####[facility]RIS LABORATORYCLIA [id number] [place] [address] [place] AST [Catalytic activity/Vol] 53 U/L High 13-35 [facility] Comment on above: Order Comment: Speci men Type: BLOOD SPECIMENOrdering Facility: [facility] Address: [address] [place] [address] Performed By: #### 1 239, ####CHRIS LABORATORYCLIA [id number] [place] [address] [place] Bilirubin [Mass/Vol] 0.3 mg/dL Normal 0.2-1.3 [facility] Comment on above: Order Comment: Speci men Type: BLOOD SPECIMENOrdering Facility: [facility] Address: [address] [place] [address] Performed By: #### 1 23-9, ####CHRIS LABORATORYCLIA [id number] [place] [address] [place] Calcium [Mass/Vol] 9.8 mg/dL Normal 8.5-10.2 [facility] Comment on above: Order Comment: Speci men Type: BLOOD SPECIMENOrdering Facility: [facility] Address: [address] [place] [address] Performed By: #### 1 23-9, ####CHRIS LABORATORYCLIA [id number] [place] [address] [place] Chloride [Moles/Vol] 104 mmol/L Normal 97-105 [facility] Comment on above: Order Comment: Speci men Type: BLOOD SPECIMENOrdering Facility: [facility] Address: [address] [address] Performed By: #### 1 9123-9, 75995-6 ####CHRIS LABORATORYCLIA [id number] [place] [address] [place] CO2 [Moles/Vol] 29 mmol/L Normal 22-30 [facility] Comment on above: Order Comment: Eric trejo Type: BLOOD SPECIMENOrdering Facility: [facility] Address: [address] [place] [address] Performed By: #### 1 9123-9, ####CHRIS LABORATORYCLIA [id number] [place] [address] [place] Creatinine [Mass/Vol] 0.72 mg/dL Normal 0.58-0.96 [facility] Comment on above: Order Comment: Eric trejo Type: BLOOD SPECIMENOrdering Facility: [facility] Address: [address] [place] [address] Performed By: #### 1 239, ####[facility]RIS LABORATORYCLIA [id number] [address] ESTIMATED GLOMERULAR FILTRATION RATE 91 mL/min/1.73m??? Normal >=60 [facility] Comment on above: Order Comment: Eric trejo Type: BLOOD SPECIMENOrdering Facility: [facility] Address: [address] [place] [address] Result Comment: Gissel mated Glomerular Filtration Rate (eGFR) is calculated using the 2020 CKD-EPI creatinine equation. This equation utilizes serum creatinine, sex, and age as parameters. The creatinine assay has traceable calibration to isotope dilution-mass spectrometry. Refer to KDIGO guidelines for clinical interpretation. In patients with unstable renal function, e.g. those with acute kidney injury, the eGFR may not accurately reflect actual GFR. Performed By: #### 1 9123-9, ####CHRIS LABORATORYCLIA [id number] [address] [place] Glucose [Mass/Vol] 123 mg/dL High 74-99 [facility] Comment on above: Order Comment: Eric trejo Type: BLOOD SPECIMENOrdering Facility: [facility] Address: [address] [address] Result Comment: The [place] [employer] (ADA) provides guidance for cutoff values for fasting glucose and random glucose. The ADA defines fasting as no caloric intake for at least 8 hours. Fasting plasma glucose results between 100 to 125 mg/dL indicate increased risk for diabetes (prediabetes). Fasting plasma glucose results greater than or equal to 126 mg/dL meet the criteria for diagnosis of diabetes. In the absence of unequivocal hyperglycemia, results should be confirmed by repeat testing. In a patient with classic symptoms of hyperglycemia or hyperglycemic crisis, random plasma glucose results greater than or equal to 200 mg/dL meet the criteria for diagnosis of diabetes. Reference: Standards of Medical Care in Diabetes 2016, [place] [employer]. Diabetes Care. 2016.39(Suppl 1). Performed By: #### 1 9123-9, ####CHRIS LABORATORYCLIA [id number] [place] [address] [place] Potassium [Moles/Vol] 4.4 mmol/L Normal 3.7-5.1 [facility] Comment on above: Order Comment: Speci men Type: BLOOD SPECIMENOrdering Facility: [facility] Address: [address] [address] Performed By: #### 1 9123-9, ####[facility] LABORATORYCLIA [id number] [place] [address] [place] Protein [Mass/Vol] 7.0 g/dL Normal 6.3-8.0 [facility] Comment on above: Order Comment: Speci men Type: BLOOD SPECIMENOrdering Facility: [facility] Address: [address] [address] Performed By: #### 1 9123-9, 43776-1 ####[facility] LABORATORYCLIA [id number] [place] [address] [place] Sodium [Moles/Vol] 141 mmol/L Normal 136-144 [facility] Comment on above: Order Comment: Speci men Type: BLOOD SPECIMENOrdering Facility: [facility] Address: [address] [address] Performed By: #### 1 9123-9, 30446-1 ####[facility] LABORATORYCLIA [id number] [address] [id number] [place] [facility] Urea nitrogen [Mass/Vol] 16 mg/dL Normal 7- [facility] Comment on above: Order Comment: Speci men Type: BLOOD SPECIMENOrdering Facility: [facility] Address: [address] [place] [address] Performed By: #### 1 9123-9, 92319-3 ####[facility] LABORATORYCLIA [id number] [address] [id number] [place] ECHO WITH AGITATED SALINE CO NTRASTon 04-02-2022 ECHO WITH AGITATED SALINE CONTRAST Echocardiography Report: Transthoracic Echo [facility] Date of service: 04/02/2022 10:23:38 AM Ordering physician: NEHEMIAS GARCIA JR Indication: stroke Technologist: Ambika Coles RDCS Interpreting physician: Derrick Corbin DO PATIENT: Name: MRS. SHIRA SHEN : 1950 Age: 71 years Gender: F History of hypertension and dyslipidemia. Primary rhythm: sinus. Height: 162.60 cm BSA: 1.98 m? Weight: 86.40 kg BMI: 32.7 kg/m? Heart rate 73 bpm Blood pressure 159/69 mmHg Agitated saline was administered to assess source of emboli. Color Doppler was utilized to interrogate the cardiac valves assessed and spectral Doppler was utilized to determine the flow velocities and pressure gradients reported in this exam. Myocardial strain analysis was performed in this exam to aid in the assessment of cardiac function. MEASUREMENTS: Value Indexed Normal Max aortic dimension 2.8 cm Ao < 3.8 Left atrium diameter 4.0 cm (2D) Left atrial volume 49 ml (biplane A-L) 25 ml/m? Hailey <= 34 LV ID (diastole) 4.6 cm (2D) 2.34 cm/m? LV ID (systole) 2.8 cm (2D) 1.44 cm/m? IVS, leaflet tips 1.1 cm (2D) Posterior wall thickness 1.0 cm (2D) Left ventricular mass 164 g (2D) 83 g/m? Global peak long strain -16.9 % LV stroke volume 64 ml (2D biplane) LV end diastolic volume 95 ml (2D biplane) 47.9 ml/m? 29<=EDVi<62 LV end systolic volume 30 ml (2D biplane) 15.4 ml/m? Ejection Fraction 68 % (2D biplane) EF > 54 FINDINGS: LEFT VENTRICLE The left ventricle is normal in size. Left ventricular systolic function is normal. Global LV myocardial strain is normal. Normal left ventricular diastolic function. Mitral annular lateral E/e': 9.1. Mitral annular septal E/e': 12.2. Wall Motion: All scored segments are normal. RIGHT VENTRICLE The right ventricle is normal in size. Right ventricular systolic function is normal. RV systolic tissue Doppler velocity is 11.4 cm/s. Tricuspid annular displacement is 1.4 cm. Estimated right ventricular systolic pressure is 27 mmHg consistent with normal pulmonary artery pressures. Estimated right atrial pressure is 3 mmHg based on IVC assessment. LEFT ATRIUM The left atrial cavity is normal in size. Pulmonary Veins: The pulmonary venous pattern showed normal systolic flow. RIGHT ATRIUM The right atrial cavity is normal in size. Inferior Vena Cava: The inferior vena cava appears normal measuring 1.5 cm. The vessel decreases greater than 50 percent with inspiration. MITRAL VALVE There is trace mitral valve regurgitation. There is mild calcification. The pressure half time is 66 msec. The peak mitral E/A ratio is 0.67. The average mitral E/e' ratio is 10.6. The mitral flow deceleration time is 227 msec. TRICUSPID VALVE The tricuspid valve leaflets are structurally normal. There is trace tricuspid valve regurgitation. The hepatic venous pattern showed normal systolic flow. AORTIC VALVE Tricuspid aortic valve. There is mild calcification. The peak gradient is 8 mmHg (peak velocity = 141.0 cm/s). The LVOT diameter is 1.9 cm. PULMONIC VALVE The pulmonic valve was not seen or not interrogated. There is trace pulmonic valve regurgitation. AORTA The visualized aorta is normal in size. Measurements - Aortic valve annulus 1.9 cm. Mid ascending aorta 2.8 cm. PULMONARY ARTERIES The pulmonary arteries are unseen or not interrogated. INTERATRIAL SEPTUM There is no patent foramen ovale as detected by Doppler and saline contrast with valsalva. INTERVENTRICULAR SEPTUM There is normal motion of the interventricular septum. PERICARDIUM There is no pericardial effusion. CONCLUSIONS: - Exam indication: stroke - The left ventricle is normal in size. Left ventricular systolic function is normal. EF = 68 ? 5% (2D biplane) Normal left ventricular diastolic function. - The right ventricle is normal in size. Right ventricular systolic function is normal. - Trivial mitral reugurgitation. - Trivial tricuspid regurgitation. - There is no patent foramen ovale as detected by Doppler and saline contrast with valsalva. - Saline bubble study is negative for shunt. - The patient has not had a prior CC echocardiographic exam for comparison. * * * Final * * * [facility] : [id number] oDynamicsSISUID Normal [facility] Magnesium SerPl-mCncon 04-02 Magnesium [Mass/Vol] 2.0 mg/dL Normal 1.7-2.3 [facility] Comment on above: Order Comment: Speci men Type: BLOOD SPECIMENOrdering Facility: [facility] Address: [address] [place] [address] Performed By: #### 1 9123-9, 38815-5 ####[facility] LABORATORYCLIA [id number] [address] THERAPY NTon 04-02-2022 THERAPY NT HNO ID: [id number] Author: Mana Coello PT Service: Physical Therapy Author Type: Physical Therapist Type: Therapy (PT/OT/Speech/Resp) Filed: 04/02/2022 4:40 PM Note Text: Physical Therapy Treatment SERVICE DATE: 04/02/2022 SERVICE TIME: 1553 to 1622 ROOM: [address] [address] Recommended Discharge Disposition: Acute Rehab Recommended Discharge Disposition Comments: Pt currently functioning below baseline with acute left thalamocapsular infarct; Pt presents with R side coordination deficits, R facial droop, R side numbness, and ataxic RLE during gait training. Pt presents as increased fall risk, requires daily intensive therapy services post acute stay to address deficits and assist pt in regaining optimal independence at home. Pt needs currently exceed those available at home, and also exceed equipment provided in a SNF. Pt within window for optimal neuroplasticity training. Easily able to tolerate 3+ hours of therapy per day Recommended Discharge Disposition Due to: Patient requires an active, intensive rehabilitation therapy program due to:;ADL impairment resulting in caregiver dependence;anticipate community discharge/previous community dweller;ataxia;caregiver training needs;complex equipment needs;Constraint-Induced Movement Therapy needs;coordination deficits;decline in functional status requiring daily skilled care;deficits affecting dominant side;high level balance deficits;intact cognition;motor planning deficits;ongoing intervention of multiple therapy disciplines Anticipated Discharge Needs: Physical Assist at Home;Supervision at Home Physical Assist at Home for: Ambulation;Cleaning;Laundry;M eals;Transportation;Shopping; Self Care Supervision at Home due to: Other: See Comment (for optimal safety. Rec AR due to + stroke) Recommended Discharge Equipment: To Be Determined PT 6 Clicks Score: 18 Precautions/Activity Restrictions: Fall Risk Current Hospital Course: MRI showing Acute left thalamocapsular infarct.; CTA head/neck showing 17% stenosis of the cervical right ICA and 33% stenosis of the cervical left ICA by NASCET criteria. Patent cervical vertebral arteries. Bilateral MCA, bilateral 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, and right PICA stenoses. Reason for Hospital Admission: 71 year old admitted with right numbness since 03/29/22; +CVA Relevant Past Medical History: HTN, hyperlipidemia, Bipolar 1, depression Response to Therapy Interventions: Good participation in activities, Notable progression with functional activities/skills, On-track to achieve discharge goals, Needs frequent redirection or re-instruction, Requires additional time to complete activities Assessment Comments: Pt is Jcarlos to CGA with activity, ataxic gait with difficulty of placement of RLE, requires intermittent cuing for safety with activity Physical Therapy Problem List: Education Deficit;Safety Deficits;Impaired Self Care;Decreased Activity Tolerance;Decreased Range Of Motion;Decreased Strength;Functional Mobility Impairment;Balance Impaired;Sensory Deficit Treatment Interventions: Education;Self Care / Home Management;Energy Conservation Training;Joint Mobility;Strengthening;Functi onal Mobility Training;Balance Training;Neuromuscular Re-education;Edema Management;Pain Management;Orthotic Management and Training Plan for next visit: Bed mobility, Chair transfer training, Curb step training, Fall prevention, Family instruction, Gait training, Exercise instruction/handout, Pre-gait activities, Sit to Stand Transfers, Sitting balance, Stairs training, Standing Balance, Standing Tolerance, Walker Training Home Environment Patient Lives With: Spouse 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 + driving, - retired, No use of AD for ambulation. Denies any falls in past 6 months Patient Report: Pt agreeable to PT, ok per nursing to treat CURRENT FUNCTIONAL STATUS: Most recent performance Current Functional Mobility Assist Level Additional Information Rolling Supine to Sit Contact Guard Assistance;Additional Information sitting EOB upon entry Sit to Supine Additional Information sititng EOB upon exit Scooting Stand By Assistance Sit to Stand Minimal Assistance;Contact Guard Assistance X 5 trials, increased assist with increased trials and post additional activity. Cues for proper hand placement Stand to Sit Contact Guard Assistance cues for safe approach to surface, proper hand placement, controlled descent to sit Bed to Chair Toilet/Commode Gait Minimal Assistance;Contact Guard Assistance Gait Device: Wheeled W (more content not included)... Normal [facility] THERAPY NT HNO ID: [id number] Author: Nolvia Bautista, [employer] Service: Speech/Swallow Author Type: Speech Language Pathologist Type: Therapy (PT/OT/Speech/Resp) Filed: 04/02/2022 3:54 PM Note Text: Speech Therapy Treatment SERVICE DATE: 04/02/2022 SERVICE TIME: 1532 to 1546 ROOM: [place] [address] IMPRESSION: Swallow Deficits Identified / Suspected: Oropharyngeal dysphagia, Concern for possible esophageal impairment Diet Recommendations: Regular Consistency;Thin Liquids IDDSI Level 0;Medications whole in puree (pudding/applesauce) Swallowing Precautions Recommendations: Alternate bites and sips;Anti-Reflux precautions;Feed / Eat at a slow rate;Reduced bite size;Sit upright 90 degrees for all PO Nursing Recommendations: Reinforce use of swallowing strategies;GERD Precautions;Reinforce an upright position during / after all PO Recommended Consults: GI Recommended Discharge Disposition: No further skilled speech therapy services anticipated Reason for Hospital Admission: 71 year old admitted with right numbness since 03/29/22; +CVA Rehabilitation Precautions: Aspiration Precautions;Dysphagia Reason for Speech Therapy Consult: ST eval per CVA protocol Relevant Past Medical History: bipolar, hyperlipidemia, HTN Response to Therapy Interventions: Able to recall previously taught information, Good Participation in activities Speech Therapy Problem List: Dysphagia;Education Deficit Patient Report: I'm doing fine now Current Status Oral Hygiene: Clear, moist oral cavity Dentition: Retains Natural Dentition Current Feeding Method: Oral Current Diet Textures: Regular Consistency;Thin Liquids IDDSI Level 0 Current Level Of Communication: Verbal Current Management Of Secretions: Able to self-manage Oral Motor Exam: Within Functional Limits Swallow Position Of Patient During Assessment: Unsupported Sitting Response to Consistencies Presented: -Pt had finished lunch meal, reported no difficulty. Pt educated on swallow precautions including alternating solids-liquids, reduced bolus size, and slow rate of intake. Pt admites to eating too fast; education provided on GI consult if symptoms of golbus sensation worsen. Pt states it is much better and she is doing fine now. Compensatory Strategies Utilized During Assessment: Anti-Reflux precautions Patient /Caregiver Goals: Eat/Drink Without Restrictions;Go Home Goals for Plan of Care: Goals: SWALLOWING: Patient / Caregiver will demonstrate knowledge of taught compensatory strategies and dietary consistency recommendations to optimize functional swallow function without overt clinical signs and symptoms of aspiration or dysphagia Progress Toward Goals: Goal Met Speech Rehab Potential: Excellent Patient will be discontinued from speech therapy when no further skilled needs are identified in this setting. PLAN: ST Frequency: Discontinue therapy services Reasons Inpatient Therapy Services Discontinued: Goals met Treatment Interventions: Dysphagia Management Plan of Care Developed with: Patient Results and Recommendations Discussed With: Patient TREATMENT INTERVENTIONS: Therapy Diagnosis: Dysphagia, oropharyngeal phase Interventions Provided: Dysphagia Therapy (13955) $ Dysphagia Therapy (30022) Billed Units: 1 unit Training and education provided in: Caregiver Education, Dietary Consistencies, Dysphagia Management, Swallowing Strategies The following therapeutic skills were used:: Teach-back for confirmation of education provided, Instruction in self-monitoring / self-assessment Skilled Treatment Time (minutes): 14 Home Environment Patient Lives With: Spouse Prior Swallowing Function/Diet Textures: Regular Consistency;Thin Liquids IDDSI Level 0 Please see discipline specific clinical documentation flowsheet for complete details for this therapy evaluation/treatment. SIGNATURE: Nolvia Bautista [facility]-[employer]PERVISOR DOP[employer] PATIENT NAME: Shira Shen DATE: April 02, 2022 TIME: 3:54 PM [facility] THERAPY NT HNO ID: [id number] Author: Izabel Juares OT/L Service: Occupational Therapy Author Type: Occupational Therapist Type: Therapy (PT/OT/Speech/Resp) Filed: 04/02/2022 3:11 PM Note Text: Occupational Therapy Treatment SERVICE DATE: 04/02/2022 SERVICE TIME: 1436 to 1501 ROOM: [place] [address] Recommended Discharge Disposition: Acute Rehab Recommended Discharge Disposition Comments: Previously independent pt presents right R sided weakness and sensory deficit affecting ability to perform self care tasks and functional transfer tasks. Level of skill needed to return to PLOF and pts ability to particpate in intense therapy setitng warrants acute rehab. Recommended Discharge Disposition Due to: Patient requires an active, intensive rehabilitation therapy program due to:;ADL impairment resulting in caregiver dependence;deficits affecting dominant side Anticipated Discharge Needs: Physical Assist at Home;Supervision at Home Physical Assist at Home for: Ambulation;Cleaning;Laundry;M eals;Transportation;Shopping; Self Care Supervision at Home due to: Other: See Comment (for optimal safety. Rec AR due to + stroke) OT 6 Clicks Score: 18 Precautions/Activity Restrictions: Fall Risk Current Hospital Course: MRI showing Acute left thalamocapsular infarct.; CTA head/neck showing 17% stenosis of the cervical right ICA and 33% stenosis of the cervical left ICA by NASCET criteria. Patent cervical vertebral arteries. Bilateral MCA, bilateral 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, and right PICA stenoses. Reason for Hospital Admission: 71 year old admitted with right numbness since 03/29/22; +CVA Relevant Past Medical History: HTN, hyperlipidemia, Bipolar 1, depression Response to Therapy Interventions: Good participation in activities, On-track to achieve discharge goals Assessment Comments: Pt somewhat distractible throughout session, frequent complaints of R sd feeling weak and off. Noted difficulty completing tasks with RUE outstretched and with heavier objects. Continue skilled needs due to: Coping deficits, Functional impairment, Safety concerns Occupational Therapy Problem List: Safety Deficits;Impaired Self Care;Decreased Activity Tolerance;Decreased Strength;Functional Mobility Impairment;Balance Impaired Cognition/Communication Deficits Attention Deficits: Distractible Treatment Interventions: Education;Self Care / Home Management;Energy Conservation Training;Strengthening;Functi onal Mobility Training;Balance Training Plan for next visit: Bed mobility, Grooming training, IADLs/Home management (cognitive testing) Home Environment Patient Lives With: Spouse 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 + driving, - retired, No use of AD for ambulation. Denies any falls in past 6 months Patient Report: I used to be able to do everything, and now I can't. Pt was agreeable for therapy, somewhat distractible. Cleared for OT by RN. CURRENT FUNCTIONAL STATUS: Most recent performance Current Activities of Daily Living Assist Level Additional Information Feeding Set Up;Additional Information anticipated Grooming Minimal Assistance;Additional Information anticipated Bathing Upper Body Set Up Bathing Lower Body Minimal Assistance Dressing Upper Body Minimal Assistance Dressing Lower Body Contact Guard Assistance;Additional Information pt doffed/donned socks while seated EOB Toileting Contact Guard Assistance Instrumental Activities of Daily Living Assist Level Additional Information Meal/Beverage Prep Cleaning Laundry Medication Management with Strategies Functional Mobility Assist Level Additional Information Rolling Supine to Sit Minimal Assistance;Additional Information Sit to Supine Minimal Assistance;Additional Information Scooting Sit to Stand Minimal Assistance;Additional Information to CGA Stand to Sit Contact Guard Assistance Bed to Chair Minimal Assistance Stepping Wheeled Walker Toilet/Commode Shower Functional Mobility Contact Guard Assistance;Additional Information Wheeled Walker (gait belt) cueing on sequencing, pt quick with some movements and required cueing for safety Blank brown indicate activity not attempted Balance: Static Sitting;Dynamic Sitting;Static Standing;Dynamic Standing Static Sitting Balance: Good Patient able to maintain balance without handhold support, limited postural sway Dynamic Sitting Balance: Good Patient accepts moderate challenge, able to maintain balance while picking up object off floor Static Standing Balance: Fair Patient able to maintain balance with (more content not included)... [facility] THERAPY NT HNO ID: [id number] Author: Mana Coello, PT Service: Physical Therapy Author Type: Physical Therapist Type: Therapy (PT/OT/Speech/Resp) Filed: 04/02/2022 2:40 PM Note Text: PHYSICAL THERAPY MISSED VISIT SERVICE DATE: 04/02/2022 SERVICE TIME: 1438 to 1438 ROOM: [place] [address] Patient not seen due to Another service at bedside (OT with patient, will return as schedule allows.). SIGNATURE: Mana Coello PT PATIENT NAME: Shira Shen DATE: April 02, 2022 TIME: 2:40 PM [facility] THERAPY NT HNO ID: [id number] Author: CAMILA Carmichael Service: Speech/Swallow Author Type: Speech Language Pathologist Type: Therapy (PT/OT/Speech/Resp) Filed: 04/02/2022 2:40 PM Note Text: [facility] SPEECH THERAPY MISSED VISIT NOTE SERVICE DATE: 04/02/2022 SERVICE TIME: 2:35 pm Attempted patient therapy visit, but was unable for the following reason: another service at bedside (therapy). Will re-attempt as pt/SUPERVISOR DOPING schedule permits. SIGNATURE: CAMILA Carmichael PATIENT NAME: Shira Shen DATE: April 02, 2022 TIME: 2:40 PM [facility] CASE MGT INIT ТАТЬЯНАon 2021 CASE MGT INIT ТАТЬЯНА HNO ID: [id number] Author: KEMAR Adair Service: ASSESSMENT Author Type: Early Interventionist Type: Care Mgt Initial Assessment Filed: 04/01/2022 4:25 PM Note Text: CARE MANAGEMENT: ASSESSMENT AND DISCHARGE PLAN SERVICE DATE: April 01, 2022 SERVICE TIME: 4:23 PM PRIMARY CARE PHYSICIAN: Eulalio Sykes MD-verified Primary Contact: Extended Emergency Contact Information Primary Emergency Contact: Pilo Shen Address: [address] [place] [address] Mobile Relation: Spouse ADMISSION STATUS: Inpatient Insurance Provider: [employer] NEEDS PRIOR TO DISCHARGE Needs Prior to Discharge: To Be Determined;Accepting Facility;Bed Availability;Precertification POTENTIAL TRANSITION PLANS To Be Determined;Other: See Comment (Acute Rehab) Based on clinical judgement, Care Management will address the following needs: Medical;Cognitive;Social;Func tional Patient's perception of need for this admission: numbness ADVANCE DIRECTIVES Current Advance Directive: None Business Objects Architect Attempted to Assist with AD Completion: Yes Action: Education Provided MS/BEHAVIOR Baseline Mental Status Prior to this Illness what was the patient's Baseline Mental Status?: Alert AND Oriented Prior to this illness, has anyone described the patient having any of the following behaviors?: Not Applicable Relationship of the informant to the patient:: Self READMISSION Last Discharge Date: 01/04/22 Is this Within the Past 30 days? 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 [phone] Does the patient have transportation upon discharge?: Yes Situation: Spouse to transport home. Use of any community resources?: No Does the patient have a stable and supportive living arrangement and home setting?: Yes Are there any potential risks or gaps identified by risk/functional/fall,etc. scores in the EMR?: No Any potential risks related to substance abuse and/or behavioral health?: No Based on clinical judgement, Care Management will address the following needs: Medical;Cognitive;Social;Func tional CAREGIVER ASSESSMENT Caregiver is ready, willing and able to meet the patient's needs as recommended by the inter-professional team:: Yes Name of Caregiver: Acute Rehab facility will assist pt. in meeting her needs upon discharge. MEDICAL Medical Needs: Two or more chronic diseases;Stroke/Cognitive defects Health Issues Impacting Discharge Plan: Newly diagnosed;Chronic Newly Diagnosed: Acute CVA Chronic: HTN, Hyperlipidemia, Bipolar 1, Depression Medication Adherance I am convinced of the importance of my prescription medication: 0 - Agree Completely I worry that my prescription medication will do more harm than good to me : 0 - Disagree Completely I feel financially burdened by my pcl-ha-onjdew expenses for my prescription medication:: 0 - Disagree Completely Risk Score: 0 Patient is categorized as: Low risk < 2 SOCIAL Living Arrangements: Home Lives With: Spouse Financial Resources: Retired Supportive Patient Contact:: Yes Is Patient Psychosocially Complex?: No Health Literacy How often do you need to have someone help you when you read instructions, pamphlets, or other written material from your doctor or pharmacy? : 1 - Never How confident are you filling out medical forms by yourself?: 1 - Extremely Food Insecurity: No Food Insecurity ? ? Worried About Running Out of Food in the Last Year: Never true ? ? Ran Out of Food in the Last Year: Never true Financial Resource Strain: Low Risk ? ? Difficulty of Paying Living Expenses: Not very hard Transportation Needs: No Transportation Needs ? ? Lack of Transportation (Medical): No ? ? Lack of Transportation (Non-Medical): No Housing Stability: Low Risk ? ? Unable to Pay for Housing in the Last Year: No ? ? Number of Places Lived in the Last Year: 1 ? ? Unstable Housing in the Last Year: No BEHAVIORAL/COGNITIVE Psychosocial Psychosocial Needs: Mental Health Diagnosis Mental Health Information: Hx. Bipolar 1 and Depression FUNCTIONAL How do you manage to accomplish the following: Independent: Ambulation;Bathe/Shower;Dress ;Meals/Meal Prep;Going to the bathroom;Medication Management;Transportation to appointments/community Services/Needs//Equipment Does Patient Currently Receive Any Community Services or Home Care?: None Equipment Prior to Admission: None DME Provider Information: N/A Has the Patient Been in a Halfway Facility in the Past 30 days?: No FREEDOM OF CHOICE EXPLAINED: [place] of Choice Given: Yes Level of Care Discussed: Other: See Comment (Acute Rehab) Provider List: Other: See Comment (Acute Rehab) Pro (more content not included)... Normal [facility] CBC panel Auto (Bld)on 04-01 Erythrocyte distribution width (RBC) [Ratio] 12.9 % Normal 11.5-15.0 [facility] Comment on above: Order Comment: Speci men Type: BLOOD SPECIMENOrdering Facility: [facility] Address: [address] [address] Performed By: #### 5 8410-2 ####[facility] LABORATORYCLIA [id number] [address] [facility] Hematocrit (Bld) [Volume fraction] 38.9 % Normal 36.0-46.0 [facility] Comment on above: Order Comment: Speci men Type: BLOOD SPECIMENOrdering Facility: [facility] Address: [address] [address] Performed By: #### 5 8410-2 ####[facility] LABORATORYCLIA [id number] [address] Hemoglobin (Bld) [Mass/Vol] 12.6 g/dL Normal 11.5-15.5 [facility] Comment on above: Order Comment: Speci men Type: BLOOD SPECIMENOrdering Facility: [facility] Address: [address] [place] [address] Performed By: #### 5 8410-2 ####[facility] LABORATORYCLIA [id number] [address] MCH (RBC) [Entitic mass] 29.8 pg Normal 26.0-34.0 [facility] Comment on above: Order Comment: Speci men Type: BLOOD SPECIMENOrdering Facility: [facility] Address: [address] [place] [address] Performed By: #### 5 8410-2 ####[facility] LABORATORYCLIA [id number] [address] MCHC (RBC) [Mass/Vol] 32.4 g/dL Normal 30.5-36.0 [facility] Comment on above: Order Comment: Speci men Type: BLOOD SPECIMENOrdering Facility: [facility] Address: [address] [place] [address] Performed By: #### 5 8410-2 ####[facility] LABORATORYCLIA [id number] [address] MCV (RBC) [Entitic vol] 92.0 fL Normal 80.0-100.0 [facility] Comment on above: Order Comment: Speci men Type: BLOOD SPECIMENOrdering Facility: [facility] Address: [address] [place] [address] Performed By: #### 5 8410-2 ####[facility] LABORATORYCLIA [id number] [address] Nucleated RBC (Bld) [#/Vol] 10*3/uL Normal <0.01 [facility] Comment on above: Order Comment: Speci men Type: BLOOD SPECIMENOrdering Facility: [facility] Address: [address] [place], [place] [address] [address] Performed By: #### 5 8410-2 ####[facility] LABORATORYCLIA [id number] [place] [address] [place] Platelet mean volume (Bld) [Entitic vol] 11.0 fL Normal 9.0-12.7 [facility] Comment on above: Order Comment: Speci men Type: BLOOD SPECIMENOrdering Facility: [facility] Address: [address] [place], [place] [address] Performed By: #### 5 8410-2 ####[facility] LABORATORYCLIA [id number] [place] [address] [facility] [place] Platelets (Bld) [#/Vol] 222 10*3/uL Normal 150-400 [facility] Comment on above: Order Comment: Speci men Type: BLOOD SPECIMENOrdering Facility: [facility] Address: [address] [place] [address] Performed By: #### 5 8410-2 ####[facility] LABORATORYCLIA [id number] [place] [address] [place] RBC (Bld) [#/Vol] 4.23 10*6/uL Normal 3.90-5.20 [facility] Comment on above: Order Comment: Speci men Type: BLOOD SPECIMENOrdering Facility: [facility] Address: [address] [place], [place] [address]Natacha [address] Performed By: #### 5 8410-2 ####[facility] LABORATORYCLIA [id number] [place] [address] [place] WBC (Bld) [#/Vol] 7.23 10*3/uL Normal 3.70-11.00 [facility] Comment on above: Order Comment: Speci men Type: BLOOD SPECIMENOrdering Facility: [facility] Address: [address] [place], [place] [address]Nat[address] Performed By: #### 5 8410-2 ####[facility] LABORATORYCLIA [id number] [address] CONSULT PROGon 04-01-2022 CONSULT PROG HNO ID: [id number] Author: Milly Rivera MD Service: Neurology General Author Type: Physician Type: Consult Progress Note Filed: 04/01/2022 8:05 AM Note Text: TELENEUROLOGY CONSULT PROGRESS NOTE Patient seen using [facility]. Recommendations are placed in the chart. Please review. For questions after hours, when teleneurologist is not available, for [facility]: Please Page [phone] for the [facility] from 12pm to 8am Please follow normal inpatient acute stroke procedures per routine as needed. SERVICE DATE: 04/01/2022 SERVICE TIME: 8:02 AM Results of MRI reviewed and the recommendations are: ? 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 Will do DAPT followed by single therapy alone. ? Her hyperlipidemia needs to be controled. If statin is an issue, recommend to consider Repatha or other PCSK 9 inhibitor w adjunct fenofibrate. ? If ECHO is unremarkable, she can be discharged and follow up with stroke clinic in a month ? Life style and risk factor management per PCP Teleneurology service will follow up pending studies. SIGNATURE: Milly Rivera MD PATIENT NAME: Shira Shen DATE: April 01, 2022 TIME: 8:02 AM PAGER/CONTACT #: Normal [facility] Comprehensive metabolic 2000 panelon 04-01-2022 Albumin [Mass/Vol] 4.4 g/dL Normal 3.9-4.9 [facility] Comment on above: Order Comment: Eric trejo Type: BLOOD SPECIMENOrdering Facility: [facility] Address: [address] [place], [place] [address] Performed By: #### 1 9123-9, 95824-9 ####[facility] LABORATORYCLIA [id number] [place] [address] [place] ALP [Catalytic activity/Vol] 84 U/L Normal 34-123 [facility] Comment on above: Order Comment: Eric trejo Type: BLOOD SPECIMENOrdering Facility: [facility] Address: [address] [place] [address] Performed By: #### 1 9123-9, 28266-9 ####[facility] LABORATORYCLIA [id number] [place] [address] [place] ALT [Catalytic activity/Vol] 51 U/L High 7-38 [facility] Comment on above: Order Comment: Speci men Type: BLOOD SPECIMENOrdering Facility: [facility] Address: [address] [place] [address] Performed By: #### 1 9123-9, 24695-8 ####[facility] LABORATORYCLIA [id number] [place] [address] [place] Anion gap [Moles/Vol] 13 mmol/L Normal 9-18 [facility] Comment on above: Order Comment: Speci men Type: BLOOD SPECIMENOrdering Facility: [facility] Address: [address] [place] [address] Performed By: #### 1 23-9, 63788-6 ####[facility] LABORATORYCLIA [id number] [place] [address] [place] AST [Catalytic activity/Vol] 64 U/L High 13-35 [facility] Comment on above: Order Comment: Speci men Type: BLOOD SPECIMENOrdering Facility: [facility] Address: [address] [place] [address] Performed By: #### 1 9123-9, 96872-0 ####[facility] LABORATORYCLIA [id number] [place] [address] [place] Bilirubin [Mass/Vol] 0.3 mg/dL Normal 0.2-1.3 [facility] Comment on above: Order Comment: Speci men Type: BLOOD SPECIMENOrdering Facility: [facility] Address: [address] [place] [address] Performed By: #### 1 23-9, 23784-9 ####[facility] LABORATORYCLIA [id number] [place] [address] [place] Calcium [Mass/Vol] 10.3 mg/dL High 8.5-10.2 [facility] Comment on above: Order Comment: Speci men Type: BLOOD SPECIMENOrdering Facility: [facility] Address: [address] [place] [address] Performed By: #### 1 9123-9, 93976-4 ####[facility] LABORATORYCLIA [id number] [place] [address] [place] Chloride [Moles/Vol] 102 mmol/L Normal 97-105 [facility] Comment on above: Order Comment: Speci men Type: BLOOD SPECIMENOrdering Facility: [facility] Address: [address] [place] [address] Performed By: #### 1 9123-9, 64245-8 ####[facility] LABORATORYCLIA [id number] [place] [address] [place] CO2 [Moles/Vol] 25 mmol/L Normal 22-30 [facility] Comment on above: Order Comment: Speci men Type: BLOOD SPECIMENOrdering Facility: [facility] Address: [address] [place] [address] Performed By: #### 1 9123-9, 69568-1 ####[facility] LABORATORYCLIA [id number] [address] Creatinine [Mass/Vol] 0.62 mg/dL Normal 0.58-0.96 [facility] Comment on above: Order Comment: Speci men Type: BLOOD SPECIMENOrdering Facility: [facility] Address: [address] [place] [address] Performed By: #### 1 9123-9, 04656-0 ####[facility] LABORATORYCLIA [id number] [address] ESTIMATED GLOMERULAR FILTRATION RATE 97 mL/min/1.73m??? Normal >=60 [facility] Comment on above: Order Comment: Speci men Type: BLOOD SPECIMENOrdering Facility: [facility] Address: [address] [place] [address] Result Comment: Gissel mated Glomerular Filtration Rate (eGFR) is calculated using the 2020 CKD-EPI creatinine equation. This equation utilizes serum creatinine, sex, and age as parameters. The creatinine assay has traceable calibration to isotope dilution-mass spectrometry. Refer to KDIGO guidelines for clinical interpretation. In patients with unstable renal function, e.g. those with acute kidney injury, the eGFR may not accurately reflect actual GFR. Performed By: #### 1 9123-9, 89956-7 ####[facility] LABORATORYCLIA [id number] [place] [address] [place] Glucose [Mass/Vol] 132 mg/dL High 74-99 [facility] Comment on above: Order Comment: Eric trejo Type: BLOOD SPECIMENOrdering Facility: [facility] Address: [address] [place] [address] Result Comment: The [place] Diabetes Association (ADA) provides guidance for cutoff values for fasting glucose and random glucose. The ADA defines fasting as no caloric intake for at least 8 hours. Fasting plasma glucose results between 100 to 125 mg/dL indicate increased risk for diabetes (prediabetes). Fasting plasma glucose results greater than or equal to 126 mg/dL meet the criteria for diagnosis of diabetes. In the absence of unequivocal hyperglycemia, results should be confirmed by repeat testing. In a patient with classic symptoms of hyperglycemia or hyperglycemic crisis, random plasma glucose results greater than or equal to 200 mg/dL meet the criteria for diagnosis of diabetes. Reference: Standards of Medical Care in Diabetes 2016, [place] [employer] Association. Diabetes Care. 2016.39(Suppl 1). Performed By: #### 1 9123-9, ####[facility] LABORATORYCLIA [id number] [place] [address] [place] Potassium [Moles/Vol] 4.1 mmol/L Normal 3.7-5.1 [facility] Comment on above: Order Comment: Eric trejo Type: BLOOD SPECIMENOrdering Facility: [facility] Address: [address] [place] [address] Performed By: #### 1 9123-9, ####[facility] LABORATORYCLIA [id number] [address] [id number] [place] Protein [Mass/Vol] 7.9 g/dL Normal 6.3-8.0 [facility] Comment on above: Order Comment: Eric trejo Type: BLOOD SPECIMENOrdering Facility: [facility] Address: [address] [place] [address] Performed By: #### 1 [address], ####[facility] LABORATORYCLIA [id number] [place] [address] [place] Sodium [Moles/Vol] 140 mmol/L Normal 136-144 [facility] Comment on above: Order Comment: Speci men Type: BLOOD SPECIMENOrdering Facility: [facility] Address: [address] [place] [address] Performed By: #### 1 9123-9, 79322-8 ####[facility] LABORATORYCLIA [id number] [place] [address] [place] Urea nitrogen [Mass/Vol] 15 mg/dL Normal 7-21 [facility] Comment on above: Order Comment: Speci men Type: BLOOD SPECIMENOrdering Facility: [facility] Address: [address] [place] [address] Performed By: #### 1 9123-9, 31024-4 ####[facility] LABORATORYCLIA [id number] [place] [address] [place] Magnesium SerPl-mCncon 04-01 Magnesium [Mass/Vol] 2.1 mg/dL Normal 1.7-2.3 [facility] Comment on above: Order Comment: Speci men Type: BLOOD SPECIMENOrdering Facility: [facility] Address: [address] [place] [address] Performed By: #### 1 9123-9, 20928-5 ####[facility] LABORATORYCLIA [id number] [address] [id number] [place] ALLIED HEALTHon 03-31-2022 ALLIED HEALTH HNO ID: [id number] Author: Monisha Felix bar turner Service: Radiology Author Type: Marketing Information Analyst Type: Allied Health Filed: 03/31/2022 11:29 AM Note Text: Radiology Service Progress Note PATIENT NAME: Shira Shen DATE OF SERVICE: March 31, 2022 TIME: 11:29 AM PATIENT IDENTITY VERIFICATION COMPLETED USING TWO (2) IDENTIFIERS: Name and Date of confirmed by patient verbally and Name and Date of confirmed by identification band. FALL SCREENING: Has the patient had 2 falls in the last year or 1 fall with injury or currently using an Ambulatory Assistive Device (Walker, Cane, Wheelchair, Crutches, etc.)? Inpatient: Screened on floor PATIENT GENDER DATA: Female. status: : No status: NO. PATIENT RELEVANT IMPLANT DATA REVIEWED: Yes RADIOLOGY DEPARTMENT: MR; Exam(s) Completed: Head: Routine Brain PERIPHERAL IV DATA: Inpatient: see LDA documentation SIGNED BY: DIA Dougherty Tech March 31, 2022 11:29 AM Normal [facility] CBC panel Auto (Bld)on 03-31 Erythrocyte distribution width (RBC) [Ratio] 13.0 % Normal 11.5-15.0 [facility] Comment on above: Order Comment: Speci men Type: BLOOD SPECIMENOrdering Facility: [facility] Address: [address] [place] [address] Performed By: #### 5 8410-2 ####[facility] LABORATORYCLIA [id number] [address] Hematocrit (Bld) [Volume fraction] 37.4 % Normal 36.0-46.0 [facility] Comment on above: Order Comment: Speci men Type: BLOOD SPECIMENOrdering Facility: [facility] Address: [address] [place] [address] Performed By: #### 5 8410-2 ####[facility] LABORATORYCLIA [id number] [place] [address] [place] Hemoglobin (Bld) [Mass/Vol] 12.0 g/dL Normal 11.5-15.5 [facility] Comment on above: Order Comment: Speci men Type: BLOOD SPECIMENOrdering Facility: [facility] Address: [address] [place] [address] Performed By: #### 5 8410-2 ####[facility] LABORATORYCLIA [id number] [address] [place] MCH (RBC) [Entitic mass] 29.6 pg Normal 26.0-34.0 [facility] Comment on above: Order Comment: Speci men Type: BLOOD SPECIMENOrdering Facility: [facility] Address: [address] [place] [address] Performed By: #### 5 8410-2 ####[facility] LABORATORYCLIA [id number] [address] MCHC (RBC) [Mass/Vol] 32.1 g/dL Normal 30.5-36.0 [facility] Comment on above: Order Comment: Speci men Type: BLOOD SPECIMENOrdering Facility: [facility] Address: [address] [place] [address] Performed By: #### 5 8410-2 ####[facility] LABORATORYCLIA [id number] [address] MCV (RBC) [Entitic vol] 92.1 fL Normal 80.0-100.0 [facility] Comment on above: Order Comment: Speci men Type: BLOOD SPECIMENOrdering Facility: [facility] Address: [address] [place] [address] Performed By: #### 5 8410-2 ####[facility] LABORATORYCLIA [id number] [address] Nucleated RBC (Bld) [#/Vol] 10*3/uL Normal <0.01 [facility] Comment on above: Order Comment: Speci men Type: BLOOD SPECIMENOrdering Facility: [facility] Address: [address] [place] [address] Performed By: #### 5 8410-2 ####[facility] LABORATORYCLIA [id number] [address] Platelet mean volume (Bld) [Entitic vol] 10.7 fL Normal 9.0-12.7 [facility] Comment on above: Order Comment: Speci men Type: BLOOD SPECIMENOrdering Facility: [facility] Address: [address] [place] [address] Performed By: #### 5 8410-2 ####[facility] LABORATORYCLIA [id number] [address] Platelets (Bld) [#/Vol] 207 10*3/uL Normal 150-400 [facility] Comment on above: Order Comment: Speci men Type: BLOOD SPECIMENOrdering Facility: [facility] Address: [address] [place] [address] Performed By: #### 5 8410-2 ####[facility] LABORATORYCLIA [id number] [place] [address] [facility] RBC (Bld) [#/Vol] 4.06 10*6/uL Normal 3.90-5.20 [facility] Comment on above: Order Comment: Specgayle trejo Type: BLOOD SPECIMENOrdering Facility: [facility] Address: [address] [place], [place] [id number] Performed By: #### 5 8410-2 ####CHRIS LABORATORYCLIA [id number] [place] [address] [facility] WBC (Bld) [#/Vol] 6.79 10*3/uL Normal 3.70-11.00 [facility] Comment on above: Order Comment: Speci men Type: BLOOD SPECIMENOrdering Facility: [facility] Address: [address] [place] [address] Performed By: #### 5 8410-2 ####CHRIS LABORATORYCLIA [id number] [place] [id number] [facility] CONSULTon 03-31-2022 CONSULT HNO ID: [id number] Author: Milly Rivera MD Service: Neurology General Author Type: Physician Type: Consults Filed: 03/31/2022 10:10 AM Note Text: [facility] TeleNeurology Consult Note Patient seen using Teleneurology Services. Recommendations are placed in the chart. Please review. For questions after hours, when teleneurologist is not available, for [facility]: Please Page [phone] for the [facility] from 12pm to 8Am Admitting Provider/Consulted by:Clarisse Dawkins MD Time of Note:03/31/2022 Patient Name:Shira Shen Admit Date:03/30/2022 Hospital Day:1 CC: right side weakness and numbness History of Present Illness: Shira Shen is a 71 year old right handed female with a past medical history of HTN, hyperlipidemia, Bipolar 1, depression, who presents with complaints of right sided numbness and weakness that started on 03/29/2022 around 0830. Patient reports she woke up 1 day ago and was getting dressed when she developed a weird sensation. Soon after patient awoke in the morning she began to feel pins and needles sensation to her right hand that radiated up the right arm and into the right face. This is followed by feeling numb on the right side and weak. She endorsed some difficulty walking and using right arm. Patient reports she was having difficulty swallowing her pills last night, reporting they felt stuck on the right side of my throat. No vision loss, or LOC. She takes aspirin 81mg daily. Prior to Admission medications : Medication gabapentin (NEURONTIN) 300 mg capsule, Sig Take 1 capsule by mouth three times daily for 90 days., Start Date 03/28/22, End Date 06/26/22, Taking? Yes, Authorizing Provider Eulalio Sykes MD Medication propranolol ER (INDERAL LA) 120 mg 24 hr capsule, Sig Take 1 capsule by mouth once daily., Start Date 03/28/22, End Date 03/28/23, Taking? Yes, Authorizing Provider Eulalio Sykes MD Medication sertraline (ZOLOFT) 25 mg tablet, Sig Take 25 mg by mouth twice daily., Start Date , End Date , Taking? Yes, Authorizing Provider [facility] Provider Medication colestipol (COLESTID) 1 gram tablet, Sig Take 1 tablet by mouth twice daily., Start Date 01/18/22, End Date , Taking? Yes, Authorizing Provider Eulalio Sykes MD Medication montelukast (SINGULAIR) 10 mg tablet, Sig Take 1 tablet by mouth daily at bedtime., Start Date 09/25/21, End Date , Taking? Yes, Authorizing Provider Eulalio Sykes MD Medication tolterodine ER (DETROL LA) 4 mg 24 hr capsule, Sig Take 1 capsule by mouth once daily., Start Date 04/27/21, End Date 04/22/22, Taking? Yes, Authorizing Provider Michi Barnard MD Medication cranberry fruit extract (CRANBERRY ORAL), Sig Take 1 tablet by mouth once daily. , Start Date , End Date , Taking? Yes, Authorizing Provider [facility] Provider Medication fexofenadine HCl (JOVAN ORAL), Sig Take 1 tablet by mouth once daily. , Start Date , End Date , Taking? Yes, Authorizing Provider [facility] Provider Medication coenzyme Q10 (CO Q-10) 100 mg cap capsule, Sig Take 200 mg by mouth once daily., Start Date , End Date , Taking? Yes, Authorizing Provider [facility] Provider Medication esomeprazole (NEXIUM 24HR) 20 mg capsule, Sig Take 1 capsule by mouth DAILY (6 AM)., Start Date 02/11/20, End Date , Taking? Yes, Authorizing Provider Eulalio Sykes MD Medication fluticasone (FLONASE) 50 mcg/actuation nasal spray, Sig Use 2 Sprays in each nostril once daily. Rinse mouth after use., Start Date 08/09/19, End Date , Taking? Yes, Authorizing Provider Kailee Escobar APRN.MOLD BREAKER Medication acetaminophen (TYLENOL EXTRA STRENGTH) 500 mg tablet, Sig Take 2 tablets by mouth every 6 hours as needed for Pain. Take every 6 hours for first three days. Then take every 6 hours as needed., Start Date 03/27/18, End Date , Taking? Yes, Authorizing Provider Angelica (Res) De Leon Medication docusate sodium (COLACE) 100 mg capsule, Sig Take 1 capsule by mouth twice daily as needed for Constipation., Start Date 03/27/18, End Date , Taking? Yes, Authorizing Provider Angelica (Res) De Leon Medication polyethylene glycol 3350 (MIRALAX) 17 gram/dose powder, Sig Take 17 g by mouth once daily as needed (constipation). for constipation., Start Date 03/27/18, End Date , Taking? Yes, Authorizing Provider Angelica (Res) De Leon Medication Ascorbic Acid (VITAMIN C) 500 mg cpER, Sig Take 1 Each by mouth once daily., Start Date , End Date , Taking? Yes, Authorizing Provider [facility] Provider Medication cholecalciferol (VITAMIN D) 1,000 unit tab tablet, Sig Take 1,000 Units by mouth once daily., Start Date , End Date , Taking? Yes, Authorizing Provider [facility] Provider Medication multivitamins(MULTIPLE VITAMIN TAB), Sig Take one(1) tablet daily., Start Date 03/29/09, End Date , Taking? Yes, Authorizing Provider Pilo Aly Medication COMPOUNDED PRESCRIPTION, Sig CPAP 9 cmH2O with humidification and a standard size ResMed AirFit N10 nasal mask without chin strap, Start Gerardo (more content not included)... Normal [facility] Comp Metab 2000 Pnl SerPlon 03-31-2022 Albumin [Mass/Vol] 4.1 g/dL Normal 3.9-4.9 [facility] Comment on above: Order Comment: Speci men Type: BLOOD SPECIMENOrdering Facility: [facility] Address: [address] [place] [address] Performed By: #### 2 4323-8, NAMAN, , 55033-6 ####[facility] LABORATORYCLIA [id number] [address] ALP [Catalytic activity/Vol] 83 U/L Normal 34-123 [facility] Comment on above: Order Comment: Speci men Type: BLOOD SPECIMENOrdering Facility: [facility] Address: [address] [place] [address] Performed By: #### 2 4323-8, NAMAN, , 87727-9 ####[facility] LABORATORYCLIA [id number] [address] ALT [Catalytic activity/Vol] Normal [facility] Comment on above: Order Comment: Speci men Type: BLOOD SPECIMENOrdering Facility: [facility] Address: [address] [place] [address] Result Comment: Unab le to assay due to interference from hemolysis. Suggest reorder as clinically indicated. Performed By: #### 2 4323-8, NAMAN, , 47648-3 ####[facility] LABORATORYCLIA [id number] [address] Result Comment: Unab le to assay. Specimen significantly hemolyzed. AST [Catalytic activity/Vol] Normal [facility] Comment on above: Order Comment: Speci men Type: BLOOD SPECIMENOrdering Facility: [facility] Address: [address] [place] [address] Result Comment: Unab le to assay due to interference from hemolysis. Suggest reorder as clinically indicated. Performed By: #### 2 4323-8, NAMAN, , 29322-1 ####[facility] LABORATORYCLIA [id number] [address] Result Comment: Unab le to assay. Specimen significantly hemolyzed. Bilirubin [Mass/Vol] 0.2 mg/dL Normal 0.2-1.3 [facility] Comment on above: Order Comment: Speci men Type: BLOOD SPECIMENOrdering Facility: [facility] Address: [address] [place] [address] Performed By: #### 2 4323-8, NAMAN, , 93090-0 ####CHRIS LABORATORYCLIA [id number] [address] Protein [Mass/Vol] 7.0 g/dL Normal 6.3-8.0 [facility] Comment on above: Order Comment: Speci men Type: BLOOD SPECIMENOrdering Facility: [facility] Address: [address] [place] [address] Performed By: #### 2 4323-8, NAMAN, , 52487-6 ####[facility] LABORATORYCLIA [id number] [address] Comprehensive metabolic 2000 panelon 03-31-2022 Anion gap [Moles/Vol] 12 mmol/L Normal 9-18 [facility] Comment on above: Order Comment: Speci men Type: BLOOD SPECIMENOrdering Facility: [facility] Address: [address] [place] [address] Performed By: #### 2 4323-8, NAMAN, , 56983-6 ####[facility] LABORATORYCLIA [id number] [address] Calcium [Mass/Vol] 9.7 mg/dL Normal 8.5-10.2 [facility] Comment on above: Order Comment: Speci men Type: BLOOD SPECIMENOrdering Facility: [facility] Address: [address] [place] [address] Performed By: #### 2 4323-8, NAMAN, , 01908-2 ####CHRIS LABORATORYCLIA [id number] [address] Chloride [Moles/Vol] 102 mmol/L Normal 97-105 [facility] Comment on above: Order Comment: Speci men Type: BLOOD SPECIMENOrdering Facility: [facility] Address: [address] [place] [address] Performed By: #### 2 4323-8, NAMAN, , 35908-0 ####CHRIS LABORATORYCLIA [id number] [place] [address] [place] CO2 [Moles/Vol] 27 mmol/L Normal 22-30 [facility] Comment on above: Order Comment: Speci men Type: BLOOD SPECIMENOrdering Facility: [facility] Address: [address] [place] [address] Performed By: #### 2 4323-8, NAMAN, , ####CHRIS LABORATORYCLIA [id number] [address] STATES OF [facility] Creatinine [Mass/Vol] 0.70 mg/dL Normal 0.58-0.96 [facility] Comment on above: Order Comment: Speci men Type: BLOOD SPECIMENOrdering Facility: [facility] Address: [address] [place] [address] Performed By: #### 2 4323-8, NAMAN, , ####CHRIS LABORATORYCLIA [id number] [address] ESTIMATED GLOMERULAR FILTRATION RATE 94 mL/min/1.73m??? Normal >=60 [facility] Comment on above: Order Comment: Speci men Type: BLOOD SPECIMENOrdering Facility: [facility] Address: [address] [place] [address] Result Comment: Gissel mated Glomerular Filtration Rate (eGFR) is calculated using the 2020 CKD-EPI creatinine equation. This equation utilizes serum creatinine, sex, and age as parameters. The creatinine assay has traceable calibration to isotope dilution-mass spectrometry. Refer to KDIGO guidelines for clinical interpretation. In patients with unstable renal function, e.g. those with acute kidney injury, the eGFR may not accurately reflect actual GFR. Performed By: #### 2 4323-8, NAMAN, , 53453-2 ####CHRIS LABORATORYCLIA [id number] [place] [address] [place] Glucose [Mass/Vol] 137 mg/dL High 74-99 [facility] Comment on above: Order Comment: Eric trejo Type: BLOOD SPECIMENOrdering Facility: [facility] Address: [address] [place] [address] Result Comment: The [place] Diabetes Association (ADA) provides guidance for cutoff values for fasting glucose and random glucose. The ADA defines fasting as no caloric intake for at least 8 hours. Fasting plasma glucose results between 100 to 125 mg/dL indicate increased risk for diabetes (prediabetes). Fasting plasma glucose results greater than or equal to 126 mg/dL meet the criteria for diagnosis of diabetes. In the absence of unequivocal hyperglycemia, results should be confirmed by repeat testing. In a patient with classic symptoms of hyperglycemia or hyperglycemic crisis, random plasma glucose results greater than or equal to 200 mg/dL meet the criteria for diagnosis of diabetes. Reference: Standards of Medical Care in Diabetes 2016, [place] Diabetes Association. Diabetes Care. 2016.39(Suppl 1). Performed By: #### 2 4323-8, NAMAN, , ####[facility] LABORATORYCLIA [id number] [place] [address] [place] Potassium [Moles/Vol] 4.3 mmol/L Normal 3.7-5.1 [facility] Comment on above: Order Comment: Eric trejo Type: BLOOD SPECIMENOrdering Facility: [facility] Address: [address] [place] [address] Performed By: #### 2 4323-8, NAMAN, , ####[facility] LABORATORYCLIA [id number] [place] [address] [place] Sodium [Moles/Vol] 141 mmol/L Normal 136-144 [facility] Comment on above: Order Comment: Eric trejo Type: BLOOD SPECIMENOrdering Facility: [facility] Address: [address] [place] [address] Performed By: #### 2 4323-8, NAMAN, , 47833-6 ####CHRIS LABORATORYCLIA [id number] [place] [address] [place] Urea nitrogen [Mass/Vol] 16 mg/dL Normal 7-21 [facility] Comment on above: Order Comment: Eric trejo Type: BLOOD SPECIMENOrdering Facility: [facility] Address: [address] [place] [address] Performed By: #### 2 4323-8, NAMAN, 53636-4, 40001-3 ####[facility] LABORATORYCLIA [id number] [place] [address] [place] HbA1c (Bld)on 03-31-2022 Average glucose Estimated from glycated hemoglobin (Bld) [Mass/Vol] 126 mg/dL Normal [facility] Comment on above: Order Comment: Eric trejo Type: BLOOD SPECIMENOrdering Facility: [facility] Address: [address] [place] [address] Result Comment: eAG: (Estimated average glucose) is a calculated value from HgbA1c and is quality control representative of the average blood glucose level in the last 2-3 month period. Performed By: #### 5 5454-3 ####[facility] LABCLIA [id number] [place] [address] [place] HbA1c (Bld) [Mass fraction] 6.0 % High 4.3-5.6 [facility] Comment on above: Order Comment: Eric trejo Type: BLOOD SPECIMENOrdering Facility: [facility] Address: [address] [place] [address] Result Comment: [place] Diabetes Association guidelines indicate that patients with HgbA1c in the range 5.7-6.4% are at increased risk for development of diabetes, and intervention by lifestyle modification may be beneficial. HgbA1c greater or equal to 6.5% is considered diagnostic of diabetes. Performed By: #### 5 5454-3 ####[facility] LABCLIA [id number] [place] [address] [place] Hepatic function 2000 panelo n 03-31-2022 Bilirubin.conjugated [Mass/Vol] mg/dL Normal <0.2 [facility] Comment on above: Order Comment: Speci men Type: BLOOD SPECIMENOrdering Facility: [facility] Address: [address] [place] [address] Result Comment: Resu lts may be falsely decreased due to interference from hemolysis. Suggest reorder as clinically indicated. Performed By: #### 2 4323-8, NAMAN, 14764-0, 62394-6 ####DOT LABORATORYCLIA [id number] [address] OF [place] MRI BRAIN WO IVCONon 022 MRI BRAIN WO IVCON * * *Final Report* * * DATE OF EXAM: Mar 31 2022 11:37AM [facility] 0294 - MRI BRAIN WO IVCON / PROCEDURE REASON: Stroke/TIA, determine embolic source * * * * Physician Interpretation * * * * EXAMINATION: MRI BRAIN WO IVCON CLINICAL HISTORY: Stroke, transient ischemic attack. TECHNIQUE: Routine noncontrast MRI protocol including diffusion images. MQ: [id number] COMPARISON: CT brain 03/30/2022. MR brain 05/05/2021 RESULT: Motion artifact is noted on the examination. Acute Change: There is a focal area of restricted diffusion within the left thalamocapsular region. Hemorrhage: No evidence of prior parenchymal hemorrhage on the gradient echo images. Mass Lesion/ Mass Effect: No evidence of an intracranial mass or extra-axial fluid collection. No significant mass effect. Chronic Change: Scattered punctate foci of increased T2 and FLAIR signal are noted in the supratentorial white matter which is a nonspecific finding, but likely represents minimal chronic microvascular ischemia. Parenchyma: No significant volume loss for age. Ventricles: Normal caliber and morphology. Skull Base: Hypothalamic and pituitary region are grossly normal. Craniocervical junction is normal. No significant marrow replacement process. Vasculature: Major intracranial arterial structures, and dural venous sinuses show typical flow void, suggesting patency by spin echo criteria. Other: The visualized paranasal sinuses and mastoid air cells are clear. The orbits and extracranial soft tissues are unremarkable. IMPRESSION: 1. Acute left thalamocapsular infarct. 2. No intracranial hemorrhage. Bakeshop Cleaner: NATALIE Transcribe Date/Time: Mar 31 2022 11:42A Dictated by : SISSY [place] MD This examination was interpreted and the report reviewed and electronically signed by: SISSY [place] MD on Marco A 30 2022 11:49AM EST [id number] Normal [facility] Magnesium SerPl-mCncon 03-31 Magnesium [Mass/Vol] 2.0 mg/dL Normal 1.7-2.3 [facility] Comment on above: Order Comment: Speci men Type: BLOOD SPECIMENOrdering Facility: [facility] Address: [address] [place] [address] [place] [id number] Performed By: #### 2 4323-8, NAMAN, 99236-7, 96645-9 ####[facility] LABORATORYCLIA [id number] [place] [address] [facility] THERAPY NTon 03-31-2022 THERAPY NT HNO ID: [id number] Author: JACKLYN Guzman/Ketty Service: Occupational Therapy Author Type: Occupational Therapist Type: Therapy (PT/OT/Speech/Resp) Filed: 03/31/2022 3:52 PM Note Text: Occupational Therapy Evaluation SERVICE DATE: 03/31/2022 SERVICE TIME: 1439 to 1510 ROOM: [place] [address] Recommended Discharge Disposition: Acute Rehab Recommended Discharge Disposition Comments: Previously independent pt presents w/ right R sided weakness and sensory deficits affecting ability to perform self care tasks and functional transfer tasks. Level of skill needed to return to PLOF and pts ability to particpate in intense therapy setting warrants acute rehab. Recommended Discharge Disposition Due to: Patient requires an active, intensive rehabilitation therapy program due to ADL impairment resulting in caregiver dependence;deficits affecting dominant side Anticipated Discharge Needs: Physical Assist at Home;Supervision at Home;Equipment Physical Assist at Home for: Ambulation;Cleaning;Laundry;M eals;Transportation;Shopping; Self Care Supervision at Home due to: Other: See Comment (for optimal safety. Rec AR due to + stroke) OT 6 Clicks Score: 19 Precautions/Activity Restrictions: Fall Risk Current Hospital Course: MRI showing Acute left thalamocapsular infarct.; CTA head/neck showing 17% stenosis of the cervical right ICA and 33% stenosis of the cervical left ICA by NASCET criteria. Patent cervical vertebral arteries. Bilateral MCA, bilateral 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, and right PICA stenoses. Reason for Hospital Admission: 71 year old admitted with right numbness since 03/29/22; +CVA Relevant Past Medical History: HTN, hyperlipidemia, Bipolar 1, depression Response to Therapy Interventions: Coping deficits, Low activity tolerance, Limited participation, Requires encouragement to complete activities, Slow progression with ADLs/IADLs, Slow progression with functional activities/skills Assessment Comments: Pt discouraged with deficits; she is still waiting to hear MRI results Continue skilled needs due to: Coping deficits, Functional impairment, Safety concerns Occupational Therapy Problem List: Education Deficit;Safety Deficits;Impaired Self Care;Decreased Activity Tolerance;Decreased Range Of Motion;Decreased Strength;Functional Mobility Impairment;Balance Impaired;Sensory Deficit;Impaired Fine Motor Skills Cognition/Communication Deficits Responsiveness: Alert, Awake Follows Commands: 3-step Commands Treatment Interventions: Education;Self Care / Home Management;Energy Conservation Training;Strengthening;Functi onal Mobility Training;Balance Training Plan for next visit: Bed mobility, Dressing training, Coping, Standing balance Home Environment Patient Lives With: Spouse 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 + driving, - retired, No use of AD for ambulation. Denies any falls in past 6 months Patient Report: Everything is still tingly, I feel I will be hardly able to walk based on the weakness CURRENT FUNCTIONAL STATUS: Most recent performance Current Activities of Daily Living Assist Level Additional Information Feeding Independent Grooming Minimal Assistance;Additional Information to wash back of hair Bathing Upper Body Set Up Bathing Lower Body Minimal Assistance;Additional Information seated, with assist for bottom of RLE Dressing Upper Body Minimal Assistance;Additional Information to pull shirt over head Dressing Lower Body Moderate Assistance;Additional Information put on socks, shoes and thread non modified pants Toileting Supervision;Additional Information safety Instrumental Activities of Daily Living Assist Level Additional Information Meal/Beverage Prep Cleaning Laundry Medication Management with Strategies Functional Mobility Assist Level Additional Information Rolling Supine to Sit Minimal Assistance;Additional Information with use of bed rail Sit to Supine Minimal Assistance;Additional Information assist with BLE Scooting Sit to Stand Minimal Assistance Stand to Sit Minimal Assistance Bed to Chair Minimal Assistance Stepping Wheeled Walker Toilet/Commode Shower Functional Mobility Minimal Assistance Wheeled Walker Blank brown indicate activity not attempted Balance: Static Sitting;Dynamic Sitting;Static Standing;Dynamic Standing Static Sitting Balance: Good Patient able to maintain balance without handhold support, limited postural sway Dynamic Sitting Balance: Good Patient accepts moderate challenge, able to maintain balance while picking up obj (more content not included)... Normal [facility] THERAPY NT HNO ID: [id number] Author: Monisha Anderson PT Service: ? Author Type: Physical Therapist Type: Therapy (PT/OT/Speech/Resp) Filed: 03/31/2022 12:16 PM Note Text: Physical Therapy Evaluation SERVICE DATE: 03/31/2022 SERVICE TIME: 930 to 1008 ROOM: [place] [address] Recommended Discharge Disposition: Acute Rehab Recommended Discharge Disposition Comments: Pt currently functioning below baseline with acute left thalamocapsular infarct; Pt presents with R side coordination deficits, R facial droop, R side numbness, and ataxic RLE during gait training. Pt presents as increased fall risk, requires daily intensive therapy services post acute stay to address deficits and assist pt in regaining optimal independence at home. Pt needs currently exceed those available at home, and also exceed equipment provided in a SNF. Pt within window for optimal neuroplasticity training. Easily able to tolerate 3+ hours of therapy per day Recommended Discharge Disposition Due to: Patient requires an active, intensive rehabilitation therapy program due to:;ADL impairment resulting in caregiver dependence;anticipate community discharge/previous community dweller;ataxia;caregiver training needs;complex equipment needs;Constraint-Induced Movement Therapy needs;coordination deficits;decline in functional status requiring daily skilled care;deficits affecting dominant side;high level balance deficits;intact cognition;motor planning deficits;ongoing intervention of multiple therapy disciplines Anticipated Discharge Needs: Physical Assist at Home;Supervision at Home;Equipment Physical Assist at Home for: Ambulation;Cleaning;Laundry;M eals;Transportation;Shopping; Self Care Supervision at Home due to: Other: See Comment (for optimal safety. Rec AR due to + stroke) Recommended Discharge Equipment: To Be Determined PT 6 Clicks Score: 17 Precautions/Activity Restrictions: Fall Risk Current Hospital Course: MRI showing Acute left thalamocapsular infarct.; CTA head/neck showing 17% stenosis of the cervical right ICA and 33% stenosis of the cervical left ICA by NASCET criteria. Patent cervical vertebral arteries. Bilateral MCA, bilateral 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, and right PICA stenoses. Reason for Hospital Admission: Acute CVA (cerebrovascular accident) Relevant Past Medical History: HTN, hyperlipidemia, Bipolar 1, depression Response to Therapy Interventions: Good participation in activities, Improved tolerance for activity, Low activity tolerance, Requires additional time to complete activities, Progression of disease process Assessment Comments: Pt presenting with stroke-like symptoms and R sided weakness/neglect. MRI showing acute left thalamocapsular infarct. Pt highly motivated to improve, able to tolerate 3+ hours of therapy per day. Pt with ataxic RLE stepping pattern, RLE weakness, sensation deficits in R side, and minimal facial drop on R side. Pt with coordination deficits observed with RLE and RUE during PT eval. Continue skilled needs due to: Continued monitoring of vital signs during mobility required, Family training required, Functional mobility/skill impairments, Safety concerns Physical Therapy Problem List: Education Deficit;Safety Deficits;Impaired Self Care;Decreased Activity Tolerance;Decreased Range Of Motion;Decreased Strength;Functional Mobility Impairment;Balance Impaired;Sensory Deficit Treatment Interventions: Education;Self Care / Home Management;Energy Conservation Training;Joint Mobility;Strengthening;Functi onal Mobility Training;Balance Training;Neuromuscular Re-education;Edema Management;Pain Management;Orthotic Management and Training Plan for next visit: Bed mobility, Chair transfer training, Curb step training, Fall prevention, Family instruction, Gait training, Exercise instruction/handout, Pre-gait activities, Sit to Stand Transfers, Sitting balance, Stairs training, Standing Balance, Standing Tolerance, Walker Training Home Environment Patient Lives With: Spouse 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 + driving, - retired, No use of AD for ambulation. Denies any falls in past 6 months Patient Report: Pt reports, It's such a weird sensation, the entire R side of my body is numb. Agreeable to PT, cleared with RN CURRENT FUNCTIONAL STATUS: Most recent performance Current Functional Mobility Assist Level Additional Information Rolling Supine to Sit Contact Guard Assistance;Additional Information HOB flat, extended time to complete. Pt with significant difficulty donning socks EOB, however (more content not included)... Normal [facility] THERAPY NT HNO ID: [id number] Author: Richa Ring CCC-SUPERVISOR DOPING Service: Speech/Swallow Author Type: Speech Language Pathologist Type: Therapy (PT/OT/Speech/Resp) Filed: 03/31/2022 1:09 PM Note Text: Speech Therapy Speech Evaluation, Clinical Swallow Evaluation SERVICE DATE: 03/31/2022 SERVICE TIME: 1200 to 1243 ROOM: [place] [address] IMPRESSION: Functional communication without limitations in: Speech, Language, Cognition Swallow Deficits Identified / Suspected: Oropharyngeal dysphagia, Concern for possible esophageal impairment Diet Recommendations: Regular Consistency;Thin Liquids IDDSI Level 0;Medications whole in puree (pudding/applesauce) Swallowing Precautions Recommendations: Sit upright 90 degrees for all PO; Small Bite/Sip; Voice checks; Throat clear, reswallow; Maintain an upright position 20-30 minutes following all oral intake; Feed / Eat at a slow rate; Alternate bites and sips; Anti-Reflux precautions; Self-monitoring; Use extra moistening agents Nursing Recommendations: Reinforce use of swallowing strategies;GERD Precautions;Reinforce an upright position during / after all PO Recommended Consults: GI;Esophagram Recommended Discharge Disposition: Unable to determine (continue to assess if pt warrants ongoing skilled ST needs) Reason for Hospital Admission: 71 year old admitted with right numbness since 03/29/22; +CVA Rehabilitation Precautions: Aspiration Precautions;Dysphagia Reason for Speech Therapy Consult: ST eval per CVA protocol Relevant Past Medical History: bipolar, hyperlipidemia, HTN Response to Therapy Interventions: Aspiration Risk, Good Participation in activities, Increased knowledge and Awareness to Deficits, Receptive Family / Caregivers Continue skilled SUPERVISOR DOPING services due to : Dysphagia, Education / training needs, Safety concerns Speech Therapy Problem List: Dysphagia;Education Deficit Patient Report: 'I had trouble with pills not going down' Current Status Oral Hygiene: Clear, moist oral cavity Dentition: Retains Natural Dentition Current Feeding Method: Oral Current Diet Textures: Regular Consistency;Thin Liquids IDDSI Level 0 Current Level Of Communication: Verbal Current Management Of Secretions: Able to self-manage Oral Motor Exam: Within Functional Limits (pt admits to some numbness on right side of neck) Cognition Cognitive Status: Within Functional Limits For Current Session Speech/Voice/Language Speech Production: Within Functional Limits Expressive and Receptive Language: Within Functional Limits Swallow Position Of Patient During Assessment: Unsupported Sitting Consistencies Presented: Thin Liquids IDDSI Level 0, Pureed IDDSI Level 4, Soft and Bite-Sized IDDSI Level 6, Solid Response to Consistencies Presented: -Patient readily consumes p.o. trials for evaluation; -pt admits to some difficulty with swallowing/foods sticking for last 2-3 months, which pt endorses has gotten worse recently; -pt admits to difficulty with cold cereal, hamburger sticking and recently with pills; pt states when it happens, pt sneezes and able to expectorate it; -pt with slightly impulsive bite size with puree trials; -onset of swallow appears timely; -pt presents with gurgly/slight vocal quality change/throat clear with initial presentation of soft solid -pt admits to some difficulty with swallowing it/sticking, but with next two presentations and focus on complete mastication as instructed by ST, pt denies any further difficulties and no further issues noted with soft solid trials; -pt with mild vocal quality change post trial solids, able to clear with cue to use throat clear/re-swallow Compensatory Strategies Utilized During Assessment: Sit upright 90 degrees for all PO, Small Bite/Sip, Voice checks, Throat clear, reswallow, Alternate bites and sips, Feed / Eat at a slow rate Clinical Swallow Hammond Swallow Protocol: Pass Oral Pharyngeal Swallow Assessment: Within Functional Limits Except Preparatory / Oral Phase: Within Functional Limits Except Mastication: Suspect impairment Bolus Manipulation: Suspect impairment Pharyngeal Phase: Within Functional Limits Except Reflexive Throat Clear and Cough after Swallowing: Yes, Post-Swallow Suspected Esophageal Deficits: yes Patient /Caregiver Goals: Eat/Drink Without Restrictions;Go Home Goals for Plan of Care: Goals: SWALLOWING: Patient / Caregiver will demonstrate knowledge of taught compensatory strategies and dietary consistency recommendations to optimize functional swallow function without overt clinical signs and symptoms of aspiration or dysphagia Speech Rehab Potential: Good Patient will be discontinued from speech therapy when no further skilled needs are identified in this setting. PLAN: ST Frequency: 3 times per week Treatment Interventions: Dysphagia Management Plan for next visit: Dysphagia Management, Swallowing Strategies, Caregiver Education (more content not included)... Normal [facility] THERAPY NT HNO ID: [id number] Author: CAMILA Tabor Service: Speech/Swallow Author Type: Speech Language Pathologist Type: Therapy (PT/OT/Speech/Resp) Filed: 03/31/2022 10:55 AM Note Text: [facility] SPEECH THERAPY MISSED VISIT NOTE SERVICE DATE: 03/31/2022 SERVICE TIME: 1052 Attempted patient therapy visit, but was unable for the following reason(s): -Chart reviewed -ST spoke with RN Domonique who denies pt having any difficulty with speech or swallowing at this time -Per neurology note, pt complaining of feeling pills 'stick on right side of throat' last night -RN reports pt going down momentarily for MRI; ST will re-attempt to complete evaluation pending pt availability 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 PATIENT NAME: Shira Shen DATE: March 31, 2022 TIME: 10:53 AM Normal [facility] TROPONIN Ton 03-31-2022 Troponin T.cardiac [Mass/Vol] ug/L Normal 0.000-0.[address] [place] [address] Comment on above: Order Comment: Speci men Type: BLOOD SPECIMENOrdering Facility: [facility] Address: [address] [place] [address] Performed By: #### 2 4323-8, NAMAN, 00782-0, 56385-1 ####[facility]ORATORYCLIA [id number] [address] Troponin T.cardiac [Mass/Vol] ug/L Normal 0.000-0.[address] [place] [address] Comment on above: Order Comment: Speci men Type: BLOOD SPECIMENOrdering Facility: [facility] Address: [address] [place] [address] Performed By: #### T NT ####[facility]ORATORYCLIA [id number] [address] [place] ALLIED HEALTHon 03-30-2022 ALLIED HEALTH HNO ID: [id number] Author: Shon Wheeler, RT(R) Service: Radiology Author Type: Technologist Type: Allied Health Filed: 03/30/2022 4:21 PM Note Text: Radiology Service Progress Note DATE OF SERVICE: March 30, 2022 TIME: 4:21 PM PATIENT IDENTITY VERIFICATION COMPLETED USING TWO (2) STANDARD IDENTIFIERS: Name and Date of confirmed by patient verbally and Name and Date of confirmed by identification band. FALL SCREENING: Has the patient had 2 falls in the last year or 1 fall with injury or currently using an Ambulatory Assistive Device (Walker, Cane, Wheelchair, Crutches, etc.)? Emergency Room Patient: Screened in ED PATIENT GENDER DATA: Female. status: : No status: NO. PATIENT RELEVANT IMPLANT DATA REVIEWED: Not Applicable ALLERGIES: Reviewed and unchanged CONTRAST ALLERGY: NO. EXAM: CT -CONTRAST INDUCED NEPHROPATHY RISK FACTORS: Patient age > 60 years CREATININE: Creatinine Date Value Ref Range Status 03/30/2022 0.74 0.58 - 0.96 mg/dL Final 09/25/2021 0.64 0.58 - 0.96 mg/dL Final 03/25/2021 0.62 0.58 - 0.96 mg/dL Final Estimated Glomerular Filtration Rate Date Value Ref Range Status 03/30/2022 88 >=60 mL/min/1.73m? Final Comment: Estimated Glomerular Filtration Rate (eGFR) is calculated using the 2020 CKD-EPI creatinine equation. This equation utilizes serum creatinine, sex, and age as parameters. The creatinine assay has traceable calibration to isotope dilution-mass spectrometry. Refer to KDIGO guidelines for clinical interpretation. In patients with unstable renal function, e.g. those with acute kidney injury, the eGFR may not accurately reflect actual GFR. eGFR- Date Value Ref Range Status 09/25/2021 >60 Final P.O.C.T. RESULTS: POC done: Yes, See Lab Tab March 30, 2022 TREATMENT: N/A PERIPHERAL IV DATA: Inpatient - refer to LDA documentation RADIOLOGY DEPARTMENT: CT; Exam(s) Completed: Brain , CTA Brain and CTA Neck SIGNATURE: Shon Wheeler RT(R) PATIENT NAME: Shira Shen DATE: March 30, 2022 TIME: 4:21 PM [facility] Basic metabolic 2000 panelon 03-30-2022 Anion gap [Moles/Vol] 9 mmol/L Normal 9-18 [facility] Comment on above: Order Comment: Speci men Type: BLOOD SPECIMENOrdering Facility: [facility] Address: [address] [place] [address] Performed By: #### 2 4321-2, 90193-9, NAMAN, 3016-3 ####[facility] LABORATORYCLIA [id number] [place] [address] [place] Calcium [Mass/Vol] 10.0 mg/dL Normal 8.5-10.2 [facility] Comment on above: Order Comment: Speci men Type: BLOOD SPECIMENOrdering Facility: [facility] Address: [address] [place] [address] Performed By: #### 2 4321-2, 19557-5, NAMAN, 3015-3 ####[facility] LABORATORYCLIA [id number] [place] [address] [place] Chloride [Moles/Vol] 104 mmol/L Normal 97-105 [facility] Comment on above: Order Comment: Speci men Type: BLOOD SPECIMENOrdering Facility: [facility] Address: [address] [place] [address] Performed By: #### 2 4321-2, 25496-7, NAMAN, 3015-3 ####[facility] LABORATORYCLIA [id number] [place] [address] [place] CO2 [Moles/Vol] 29 mmol/L Normal 22-30 [facility] Comment on above: Order Comment: Speci men Type: BLOOD SPECIMENOrdering Facility: [facility] Address: [address] [place] [address] Performed By: #### 2 4321-2, 51957-9, NAMAN, 3015-3 ####[facility] LABORATORYCLIA [id number] [place] [address] [place] Creatinine [Mass/Vol] 0.74 mg/dL Normal 0.58-0.96 [facility] Comment on above: Order Comment: Speci men Type: BLOOD SPECIMENOrdering Facility: [facility] Address: [address] [place] [address] Performed By: #### 2 4321-2, 46526-9, NAMAN, 6-3 ####[facility] LABORATORYCLIA [id number] [place] [address] [place] ESTIMATED GLOMERULAR FILTRATION RATE 88 mL/min/1.73m??? Normal >=60 [facility] Comment on above: Order Comment: Eric trejo Type: BLOOD SPECIMENOrdering Facility: [facility] Address: [address] [place] [address] Result Comment: Gissel mated Glomerular Filtration Rate (eGFR) is calculated using the 2020 CKD-EPI creatinine equation. This equation utilizes serum creatinine, sex, and age as parameters. The creatinine assay has traceable calibration to isotope dilution-mass spectrometry. Refer to KDIGO guidelines for clinical interpretation. In patients with unstable renal function, e.g. those with acute kidney injury, the eGFR may not accurately reflect actual GFR. Performed By: #### 2 4321-2, 08987-0, NAMAN, 6-3 ####[facility]ORATORYCLIA [id number] [place] [address] [place] Glucose [Mass/Vol] 112 mg/dL High 74-99 [facility] Comment on above: Order Comment: Eric trejo Type: BLOOD SPECIMENOrdering Facility: [facility] Address: [address] [place] [address] Result Comment: The [place] Diabetes Association (ADA) provides guidance for cutoff values for fasting glucose and random glucose. The ADA defines fasting as no caloric intake for at least 8 hours. Fasting plasma glucose results between 100 to 125 mg/dL indicate increased risk for diabetes (prediabetes). Fasting plasma glucose results greater than or equal to 126 mg/dL meet the criteria for diagnosis of diabetes. In the absence of unequivocal hyperglycemia, results should be confirmed by repeat testing. In a patient with classic symptoms of hyperglycemia or hyperglycemic crisis, random plasma glucose results greater than or equal to 200 mg/dL meet the criteria for diagnosis of diabetes. Reference: Standards of Medical Care in Diabetes 2016, [place] [employer]. Diabetes Care. 2016.39(Suppl 1). Performed By: #### 2 4321-2, 87276-9, NAMAN, 6-3 ####[facility] LABORATORYCLIA [id number] [place] [address] [place] Potassium [Moles/Vol] 4.1 mmol/L Normal 3.7-5.1 [facility] Comment on above: Order Comment: Speci men Type: BLOOD SPECIMENOrdering Facility: [facility] Address: [address] [place] [address] Performed By: #### 2 4321-2, 38332-2, NAMAN, 3015-3 ####[facility] LABORATORYCLIA [id number] [address] STATES OF [facility] Sodium [Moles/Vol] 142 mmol/L Normal 136-144 [facility] Comment on above: Order Comment: Speci men Type: BLOOD SPECIMENOrdering Facility: [facility] Address: [address] [place] [address] Performed By: #### 2 4321-2, 79077-2, NAMAN, 3015-3 ####[facility] LABORATORYCLIA [id number] [address] STATES [facility] Urea nitrogen [Mass/Vol] 13 mg/dL Normal 7-21 [facility] Comment on above: Order Comment: Speci men Type: BLOOD SPECIMENOrdering Facility: [facility] Address: [address] [place] [address] Performed By: #### 2 4321-2, 23888-6, NAMAN, 3015-3 ####[facility] LABORATORYCLIA [id number] [address] CBC panel Auto (Bld)on 03-30 Erythrocyte distribution width (RBC) [Ratio] 12.8 % Normal 11.5-15.0 [facility] Comment on above: Order Comment: Speci men Type: BLOOD SPECIMENOrdering Facility: [facility] Address: [address] [place] [address] Performed By: #### 5 8410-2 ####[facility] LABORATORYCLIA [id number] [address] Hematocrit (Bld) [Volume fraction] 37.3 % Normal 36.0-46.0 [facility] Comment on above: Order Comment: Speci men Type: BLOOD SPECIMENOrdering Facility: [facility] Address: [address] [place] [address] Performed By: #### 5 8410-2 ####[facility] LABORATORYCLIA [id number] [address] Hemoglobin (Bld) [Mass/Vol] 12.2 g/dL Normal 11.5-15.5 [facility] Comment on above: Order Comment: Speci men Type: BLOOD SPECIMENOrdering Facility: [facility] Address: [address] [place] [address] Performed By: #### 5 8410-2 ####[facility] LABORATORYCLIA [id number] [address] MCH (RBC) [Entitic mass] 29.8 pg Normal 26.0-34.0 [facility] Comment on above: Order Comment: Speci men Type: BLOOD SPECIMENOrdering Facility: [facility] Address: [address] [place] [address] Performed By: #### 5 8410-2 ####[facility] LABORATORYCLIA [id number] [address] MCHC (RBC) [Mass/Vol] 32.7 g/dL Normal 30.5-36.0 [facility] Comment on above: Order Comment: Speci men Type: BLOOD SPECIMENOrdering Facility: [facility] Address: [address] [place] [address] Performed By: #### 5 8410-2 ####[facility] LABORATORYCLIA [id number] [address] MCV (RBC) [Entitic vol] 91.2 fL Normal 80.0-100.0 [facility] Comment on above: Order Comment: Speci men Type: BLOOD SPECIMENOrdering Facility: [facility] Address: [address] [place] [address] Performed By: #### 5 8410-2 ####[facility] LABORATORYCLIA [id number] [address] Nucleated RBC (Bld) [#/Vol] 10*3/uL Normal <0.01 [facility] Comment on above: Order Comment: Speci men Type: BLOOD SPECIMENOrdering Facility: [facility] Address: [address] [place] [address] Performed By: #### 5 8410-2 ####[facility] LABORATORYCLIA [id number] [address] Platelet mean volume (Bld) [Entitic vol] 10.8 fL Normal 9.0-12.7 [facility] Comment on above: Order Comment: Speci men Type: BLOOD SPECIMENOrdering Facility: [facility] Address: [address] [place] [address] Performed By: #### 5 8410-2 ####[facility] LABORATORYCLIA [id number] [address] OF [place] Platelets (Bld) [#/Vol] 213 10*3/uL Normal 150-400 [facility] Comment on above: Order Comment: Speci men Type: BLOOD SPECIMENOrdering Facility: [facility] Address: [address] [place] [address] Performed By: #### 5 8410-2 ####[facility] LABORATORYCLIA [id number] [address] [place] RBC (Bld) [#/Vol] 4.09 10*6/uL Normal 3.90-5.20 [facility] Comment on above: Order Comment: Speci men Type: BLOOD SPECIMENOrdering Facility: [facility] Address: [address] [place] [address] Performed By: #### 5 8410-2 ####[facility] LABORATORYCLIA [id number] [address] WBC (Bld) [#/Vol] 6.13 10*3/uL Normal 3.70-11.00 [facility] Comment on above: Order Comment: Speci men Type: BLOOD SPECIMENOrdering Facility: [facility] Address: [address] [place] [address] Performed By: #### 5 8410-2 ####[facility] LABORATORYCLIA [id number] [address] OF [place] CNPNon 03-30-2022 CNPN Telephone (FAMPWS) SHIRA SHEN ([id number]) 1950 F NFR Date Time Provider Department 03/30/22 [facility] During [facility] visit today, we recorded the following information about you: Ivon Restrepo, RN 03/30/2022 9:44 AM Signed Patient reports she was seen at [facility] ER yesterday due to numbness/tingling of her right side. CT scan and blood work completed. She reports she was diagnosed with paraesthesia and was told to F/U with provider. No new medications or tests were ordered. Soonest appt available is 04/03/22 with Jaci Bailey. Patient states she continues to have feelings like her right side is asleep from the top of her head to the bottom of her foot and can hardly walk. She is asking if it is ok to wait to see Jaci on 04/[address] Sykes has any additional instructions? Please advise. Thank you. Eulalio Sykes MD 03/30/2022 9:47 AM Signed Can we pull the ER visit for me to look at again. (That is an odd neuro presentation) Eli Herrera Ma 03/30/2022 10:01 AM Signed [facility] ER documents received. Will route to PCP to review, here shortly. Eli Sykes MD 03/30/2022 12:26 PM Signed Work up negative. Paresthesia just means numbness. No reason found. If she is having issues walking, back to ER. Can go to somewhere like a [facility] ER if she is willing Laura Rubio LPN 03/30/2022 12:45 PM Signed States that is having trouble walking or using her hand. Advised that needs to go back to ER. Patient agreeable. Allergies As of Date: 03/30/2022 Noted Allergy Reaction PRAVACHOL (PRAVASTATIN) 11/20/2010 9 - Itching Comments: November 20, 2010 -- itching without rash [id number] REDUCTASE INHIBIT*02/26/2014 9 - Itching 16 - Unknown CODEINE 03/21/2005 Comments: chest pain AND pressure DOXYCYCLINE 09/15/2018 2 - Rash Comments: Blisters in mouth LEVOFLOXACIN 05/18/2016 14 - Other: See Comments Comments: Itching. PENICILLINS 03/21/2005 2 - Rash Comments: daltonMaury Has used cephalosporins SULFA (SULFONAMIDE ANTIBIOTICS) 03/21/2005 Comments: uticaria Date Reviewed: 03/28/2022 Reviewed by: Eli Herrera Ma - Fully Assessed Reason for Visit: Patient Question [6937] Patient Update [5794] Prescriptions as of 03/30/2022 - gabapentin (NEURONTIN) 300 mg capsule Take 1 capsule by mouth three times daily for 90 days. - propranolol ER (INDERAL LA) 120 mg 24 hr capsule Take 1 capsule by mouth once daily. - sertraline (ZOLOFT) 25 mg tablet Take 25 mg by mouth twice daily. - colestipol (COLESTID) 1 gram tablet Take 1 tablet by mouth twice daily. - cephALEXin (KEFLEX) 500 mg capsule Take 1 capsule by mouth twice daily. - montelukast (SINGULAIR) 10 mg tablet Take 1 tablet by mouth daily at bedtime. - tolterodine ER (DETROL LA) 4 mg 24 hr capsule Take 1 capsule by mouth once daily. - cranberry fruit extract (CRANBERRY ORAL) Take by mouth. - fexofenadine HCl (JOVAN ORAL) Take by mouth. - coenzyme Q10 (CO Q-10) 100 mg cap capsule Take 200 mg by mouth once daily. - esomeprazole (NEXIUM 24HR) 20 mg capsule Take 1 capsule by mouth DAILY (6 AM). - fluticasone (FLONASE) 50 mcg/actuation nasal spray Use 2 Sprays in each nostril once daily. Rinse mouth after use. - COMPOUNDED PRESCRIPTION CPAP 9 cmH2O with humidification and a standard size ResMed AirFit N10 nasal mask without chin strap - acetaminophen (TYLENOL EXTRA STRENGTH) 500 mg tablet Take 2 tablets by mouth every 6 hours as needed for Pain. Take every 6 hours for first three days. Then take every 6 hours as needed. - docusate sodium (COLACE) 100 mg capsule Take 1 capsule by mouth twice daily as needed for Constipation. - polyethylene glycol 3350 (MIRALAX) 17 gram/dose powder Take 17 g by mouth once daily as needed (constipation). for constipation. - Ascorbic Acid (VITAMIN C) 500 mg cpER Take 1 Each by mouth once daily. - cholecalciferol (VITAMIN D) 1,000 unit tab tablet Take 1,000 Units by mouth once daily. - sertraline (ZOLOFT) 50 mg tablet Take 50 mg by mouth once daily. - multivitamins(MULTIPLE VITAMIN TAB) Take one(1) tablet daily. Meds Comments as of 03/28/2022: Takes Apple Cider Vinegar capsules daily. 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 Normal [facility] CT BRAIN WO IVCONon 03-30-20 CT BRAIN WO IVCON * * *Final Report* * * DATE OF EXAM: Mar 30 2022 4:32PM [facility] [place] [address]504 - CT BRAIN WO IVCON / PROCEDURE REASON: Focal neuro deficit, new, fixed, or worsening, 4.5 to 24 hours, NIHSS 6 or great * * * * Physician Interpretation * * * * EXAMINATION: CTA NECK W IVCON, CT BRAIN WO IVCON, CTA HEAD W IVCON HISTORY: Right-sided numbness. TECHNIQUE: Routine CT of the brain without IV contrast. Next, high resolution axial images were obtained through the head, neck and superior mediastinum following bolus administration of intravenous contrast for CT angiography. 3D maximum intensity projection images were created, reviewed and archived . MQ: CTABNPlus_4 Contrast: 80 mL Omnipaque [address] Radiation dose: Integrated Dose-Length Product (DLP) for this visit = 1243 mGy*cm. CT Dose Reduction Employed: Automated exposure control (AEC) COMPARISON: 05/05/2021 RESULT: BRAIN: Acute change: No evidence of an acute infarct or other acute parenchymal process. ASPECT Score = 10 Hemorrhage: No evidence of acute intracranial hemorrhage. ECASS hemorrhagic transformation score: Not Applicable Mass Lesion / Mass Effect: There is no evidence of an intracranial mass or extra-axial fluid collection with the exception of a small arachnoid cyst overlying the cephalad margin of the right postcentral sulcus.. There is likely a very small calcified meningioma overlying the right supramarginal gyrus measuring approximately 8 x 3 x 10 mm in greatest AP, transverse, and CC dimensions, respectively. No significant associated mass effect. Chronic change: None clearly apparent. Parenchyma: There is no significant volume loss. The brain parenchyma is otherwise within normal limits for age. Ventricles: The ventricles are within normal limits of size and configuration for age. Other: The visualized paranasal sinuses are grossly clear. The skull and visualized extracranial soft tissues are grossly normal. NECK: Soft tissues: The soft tissue planes are maintained throughout. No evidence of a soft tissue mass in the neck or superior mediastinum. No significant lymphadenopathy is seen. Spine: Alignment is normal. Mild degenerative changes are present that are most prominent at C4-5 through C6-7 where there is likely mild compression of the adjacent cord. Lung apices: Subtle patchy infiltrates are noted in the visualized lungs which is likely exaggerated by limited depth of inspiration. CT ARTERIOGRAM: Extracranial Circulation: Aortic Arch: There is a normal branching pattern from the aortic arch.. There is no significant stenosis in the proximal brachiocephalic vessels. Carotid Stenosis: Right Common: No significant stenosis. Right Internal Carotid Plaque: Small calcified plaques at the right ICA origin Right Internal Carotid Stenosis (% by NASCET Criteria): 17 Left Common: No significant stenosis. Left Internal Carotid Plaque: Short segment eccentric mildly irregular mixed soft and hard plaque is noted at the left ICA origin Left Internal Carotid Stenosis (% by NASCET Criteria): 33 Cervical Vertebral Arteries: Patency: Bilateral Dominance: Left Intracranial Circulation: Spot Sign Presence: Not Applicable Spot Sign Number: Not Applicable Anterior Circulation: Distal ICAs are patent. Minimal calcified plaque is noted in the left carotid siphon without significant luminal narrowing. Proximal ACAs and MCAs are patent. A1 segments are essentially codominant. Long segment mild luminal narrowing is noted in the M1 segment of the right MCA and mild luminal narrowing irregularity is noted in the proximal M3 segments of the left MCA and the ventral aspect of the left sylvian fissure. There is otherwise no evidence of focal significant stenosis, intraluminal filling defect or abrupt vessel occlusion in the anterior intracranial circulation. Vertebrobasilar Circulation: The distal vertebral arteries are patent. Left vertebral artery is dominant. No significant stenosis in the distal vertebral or basilar arteries. The proximal right PICA, left AICA and both SCA's are patent. 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 Right PCOM is patent but quite small in caliber. Short segment moderate stenosis is noted in the proximal right P2 segment with more focal severe stenosis at the terminus of the segment of right P2 segment. Mild focal stenosis is noted in the distal left P2 segment. Long segment severe luminal narrowing irregularity is noted in the right PICA and the right cerebellar medullary cistern. There is otherwise no clear evidence of focal significant stenosis, intraluminal filling defect or abrupt vessel occlusion in the posterior intracranial circulation. There is uniform opacification of the superior sagittal, straight, left transverse and both sigmoid sinuses. The proximal third of the right transverse sinus is not (more content not included)... Normal [facility] CTA HEAD W IVCONon 2 CTA HEAD W IVCON * * *Final Report* * * DATE OF EXAM: Mar 30 2022 4:32PM [facility] [place] 0022 - CTA HEAD W IVCON / PROCEDURE REASON: Focal neuro deficit, new, fixed, or worsening, 4.5 to 24 hours, NIHSS < 6, strok * * * * Physician Interpretation * * * * EXAMINATION: CTA NECK W IVCON, CT BRAIN WO IVCON, CTA HEAD W IVCON HISTORY: Right-sided numbness. TECHNIQUE: Routine CT of the brain without IV contrast. Next, high resolution axial images were obtained through the head, neck and superior mediastinum following bolus administration of intravenous contrast for CT angiography. 3D maximum intensity projection images were created, reviewed and archived . MQ: CTABNPlus_4 Contrast: 80 mL Omnipaque [address] Radiation dose: Integrated Dose-Length Product (DLP) for this visit = 1243 mGy*cm. CT Dose Reduction Employed: Automated exposure control (AEC) COMPARISON: 05/05/2021 RESULT: BRAIN: Acute change: No evidence of an acute infarct or other acute parenchymal process. ASPECT Score = 10 Hemorrhage: No evidence of acute intracranial hemorrhage. ECASS hemorrhagic transformation score: Not Applicable Mass Lesion / Mass Effect: There is no evidence of an intracranial mass or extra-axial fluid collection with the exception of a small arachnoid cyst overlying the cephalad margin of the right postcentral sulcus.. There is likely a very small calcified meningioma overlying the right supramarginal gyrus measuring approximately 8 x 3 x 10 mm in greatest AP, transverse, and CC dimensions, respectively. No significant associated mass effect. Chronic change: None clearly apparent. Parenchyma: There is no significant volume loss. The brain parenchyma is otherwise within normal limits for age. Ventricles: The ventricles are within normal limits of size and configuration for age. Other: The visualized paranasal sinuses are grossly clear. The skull and visualized extracranial soft tissues are grossly normal. NECK: Soft tissues: The soft tissue planes are maintained throughout. No evidence of a soft tissue mass in the neck or superior mediastinum. No significant lymphadenopathy is seen. Spine: Alignment is normal. Mild degenerative changes are present that are most prominent at C4-5 through C6-7 where there is likely mild compression of the adjacent cord. Lung apices: Subtle patchy infiltrates are noted in the visualized lungs which is likely exaggerated by limited depth of inspiration. CT ARTERIOGRAM: Extracranial Circulation: Aortic Arch: There is a normal branching pattern from the aortic arch.. There is no significant stenosis in the proximal brachiocephalic vessels. Carotid Stenosis: Right Common: No significant stenosis. Right Internal Carotid Plaque: Small calcified plaques at the right ICA origin Right Internal Carotid Stenosis (% by NASCET Criteria): 17 Left Common: No significant stenosis. Left Internal Carotid Plaque: Short segment eccentric mildly irregular mixed soft and hard plaque is noted at the left ICA origin Left Internal Carotid Stenosis (% by NASCET Criteria): 33 Cervical Vertebral Arteries: Patency: Bilateral Dominance: Left Intracranial Circulation: Spot Sign Presence: Not Applicable Spot Sign Number: Not Applicable Anterior Circulation: Distal ICAs are patent. Minimal calcified plaque is noted in the left carotid siphon without significant luminal narrowing. Proximal ACAs and MCAs are patent. A1 segments are essentially codominant. Long segment mild luminal narrowing is noted in the M1 segment of the right MCA and mild luminal narrowing irregularity is noted in the proximal M3 segments of the left MCA and the ventral aspect of the left sylvian fissure. There is otherwise no evidence of focal significant stenosis, intraluminal filling defect or abrupt vessel occlusion in the anterior intracranial circulation. Vertebrobasilar Circulation: The distal vertebral arteries are patent. Left vertebral artery is dominant. No significant stenosis in the distal vertebral or basilar arteries. The proximal right PICA, left AICA and both SCA's are patent. 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 Right PCOM is patent but quite small in caliber. Short segment moderate stenosis is noted in the proximal right P2 segment with more focal severe stenosis at the terminus of the segment of right P2 segment. Mild focal stenosis is noted in the distal left P2 segment. Long segment severe luminal narrowing irregularity is noted in the right PICA and the right cerebellar medullary cistern. There is otherwise no clear evidence of focal significant stenosis, intraluminal filling defect or abrupt vessel occlusion in the posterior intracranial circulation. There is uniform opacification of the superior sagittal, straight, left transverse and both sigmoid sinuses. The proximal third of the right transverse sinus is not s (more content not included)... Normal [facility] CTA NECK W IVCONon 2 CTA NECK W IVCON * * *Final Report* * * DATE OF EXAM: Mar 30 2022 4:32PM [facility] [place] [address]24 - CTA NECK W IVCON / PROCEDURE REASON: Focal neuro deficit, new, fixed, or worsening, 4.5 to 24 hours, NIHSS < 6, strok * * * * Physician Interpretation * * * * EXAMINATION: CTA NECK W IVCON, CT BRAIN WO IVCON, CTA HEAD W IVCON HISTORY: Right-sided numbness. TECHNIQUE: Routine CT of the brain without IV contrast. Next, high resolution axial images were obtained through the head, neck and superior mediastinum following bolus administration of intravenous contrast for CT angiography. 3D maximum intensity projection images were created, reviewed and archived . MQ: CTABNPlus_4 Contrast: 80 mL Omnipaque [address] Radiation dose: Integrated Dose-Length Product (DLP) for this visit = 1243 mGy*cm. CT Dose Reduction Employed: Automated exposure control (AEC) COMPARISON: 05/05/2021 RESULT: BRAIN: Acute change: No evidence of an acute infarct or other acute parenchymal process. ASPECT Score = 10 Hemorrhage: No evidence of acute intracranial hemorrhage. ECASS hemorrhagic transformation score: Not Applicable Mass Lesion / Mass Effect: There is no evidence of an intracranial mass or extra-axial fluid collection with the exception of a small arachnoid cyst overlying the cephalad margin of the right postcentral sulcus.. There is likely a very small calcified meningioma overlying the right supramarginal gyrus measuring approximately 8 x 3 x 10 mm in greatest AP, transverse, and CC dimensions, respectively. No significant associated mass effect. Chronic change: None clearly apparent. Parenchyma: There is no significant volume loss. The brain parenchyma is otherwise within normal limits for age. Ventricles: The ventricles are within normal limits of size and configuration for age. Other: The visualized paranasal sinuses are grossly clear. The skull and visualized extracranial soft tissues are grossly normal. NECK: Soft tissues: The soft tissue planes are maintained throughout. No evidence of a soft tissue mass in the neck or superior mediastinum. No significant lymphadenopathy is seen. Spine: Alignment is normal. Mild degenerative changes are present that are most prominent at C4-5 through C6-7 where there is likely mild compression of the adjacent cord. Lung apices: Subtle patchy infiltrates are noted in the visualized lungs which is likely exaggerated by limited depth of inspiration. CT ARTERIOGRAM: Extracranial Circulation: Aortic Arch: There is a normal branching pattern from the aortic arch.. There is no significant stenosis in the proximal brachiocephalic vessels. Carotid Stenosis: Right Common: No significant stenosis. Right Internal Carotid Plaque: Small calcified plaques at the right ICA origin Right Internal Carotid Stenosis (% by NASCET Criteria): 17 Left Common: No significant stenosis. Left Internal Carotid Plaque: Short segment eccentric mildly irregular mixed soft and hard plaque is noted at the left ICA origin Left Internal Carotid Stenosis (% by NASCET Criteria): 33 Cervical Vertebral Arteries: Patency: Bilateral Dominance: Left Intracranial Circulation: Spot Sign Presence: Not Applicable Spot Sign Number: Not Applicable Anterior Circulation: Distal ICAs are patent. Minimal calcified plaque is noted in the left carotid siphon without significant luminal narrowing. Proximal ACAs and MCAs are patent. A1 segments are essentially codominant. Long segment mild luminal narrowing is noted in the M1 segment of the right MCA and mild luminal narrowing irregularity is noted in the proximal M3 segments of the left MCA and the ventral aspect of the left sylvian fissure. There is otherwise no evidence of focal significant stenosis, intraluminal filling defect or abrupt vessel occlusion in the anterior intracranial circulation. Vertebrobasilar Circulation: The distal vertebral arteries are patent. Left vertebral artery is dominant. No significant stenosis in the distal vertebral or basilar arteries. The proximal right PICA, left AICA and both SCA's are patent. 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 Right PCOM is patent but quite small in caliber. Short segment moderate stenosis is noted in the proximal right P2 segment with more focal severe stenosis at the terminus of the segment of right P2 segment. Mild focal stenosis is noted in the distal left P2 segment. Long segment severe luminal narrowing irregularity is noted in the right PICA and the right cerebellar medullary cistern. There is otherwise no clear evidence of focal significant stenosis, intraluminal filling defect or abrupt vessel occlusion in the posterior intracranial circulation. There is uniform opacification of the superior sagittal, straight, left transverse and both sigmoid sinuses. The proximal third of the right transverse sinus is not s (more content not included)... Normal [facility] ECG COMPLETEon 03-30-2022 ECG COMPLETE Ventricular Rate : 7 2 BPM Atrial Rate : 72 BPM P-R Interval : 172 ms QRS Duration : 128 ms Q-T Interval : 422 ms QTC Calculation(Bazett) : 462 ms Calculated P Burke : 43 degrees Calculated R Burke : -33 degrees Calculated T Burke : 6 degrees NORMAL SINUS RHYTHM LEFT AXIS DEVIATION RIGHT BUNDLE BRANCH BLOCK VOLTAGE CRITERIA FOR LEFT VENTRICULAR HYPERTROPHY ABNORMAL ECG 315 no STEMI Confirmed by MD CHUN STEVEN ([id number]), movie editor ISABEL RICARDO ([id number]) on 04/02/2022 8:11:52 AM NAME : SHIRA SHEN PID : [id number] : 1950 Gender : Female Race : ORD : [id number] Procedure Date : Mar 30 2022 15:09:21 Edit Date : Apr 02 2022 08:11:55 Diagnosis: NORMAL SINUS RHYTHM LEFT AXIS DEVIATION RIGHT BUNDLE BRANCH BLOCK VOLTAGE CRITERIA FOR LEFT VENTRICULAR HYPERTROPHY ABNORMAL ECG 315 no STEMI Confirmed by MD CHUN STEVEN ([id number]), movie editor ISABEL RICARDO ([id number]) on 04/02/2022 8:11:52 AM Test Reason : Other - Specify Location : 1 : ER 0242 Overread By : MD CHUN STEVEN Edited By : ISABEL RICARDO Referred By : , Acquired by : OLAYINKA, [facility] ED NOTEon 03-30-2022 ED NOTE HNO ID: [id number] Author: John Trejo RN Service: Nursing Author Type: Registered Nurse Type: ED Notes Filed: 03/30/2022 7:59 PM Note Text: Report to [facility] on [address]. No questions at this time. Pt stable for transport on tele. [facility] ED NOTE HNO ID: [id number] Author: John Trejo RN Service: Nursing Author Type: Registered Nurse Type: ED Notes Filed: 03/30/2022 5:51 PM Note Text: Dr. Chun at bedside to provide pt with updated POC. [facility] ED NOTE HNO ID: [id number] Author: Amita Mckeon RN Service: Nursing Author Type: Registered Nurse Type: ED Notes Filed: 03/30/2022 3:28 PM Note Text: [facility] ED NOTE HNO ID: [id number] Author: Amita Mckeon RN Service: Nursing Author Type: Registered Nurse Type: ED Notes Filed: 03/30/2022 2:51 PM Note Text: Pt with c/o right sided numbness since yesterday 03/29 at 0830. Pt reports that it's causing her to be unable to walk. Pt was seen at [facility] yesterday for same complaints. Ruled out for a stroke and sent home. She called today for a follow up appt and spoke with the nurse in the office who told her to come here to [place] [facility] to figure out whats going on. [facility] ED PROV NOTEon 03-30-2022 ED PROV NOTE HNO ID: [id number] Author: Luis Alfredo Chun MD Service: Emergency Medicine Author Type: Physician Type: ED Provider Notes Filed: 03/30/2022 6:01 PM Note Text: ED Provider Note Patient Name: Shira Shen : 1950 SERVICE DATE: 03/30/22 History Patient presents with: Numbness Limb Weakness This is a 71-year-old female that comes in the emergency department with complaints of right arm and right leg weakness and numbness. She said it started yesterday at about 8:30 AM she said hour later her right leg felt numb and weak and she had difficulty walking. She said that she went to [facility] ER had an evaluation including a CT for stroke was diagnosed with paresthesia and sent home. She said she still having difficulty walking and weakness on the right side she was told to come to the emergency department for further eval today. She denies any chest pain shortness of breath nausea vomiting or diaphoresis. Denies any anticoagulants denies hitting her head. PAST MEDICAL HISTORY Diagnosis Date - Bipolar I disorder, most recent episode (or current) unspecified - Detrusor sphincter dyssynergia - Headache has seen neurology and had mri, mra and mrv. - HLD (hyperlipidemia) - Major depressive disorder, single episode, unspecified - Unspecified personal history presenting hazards to health PAST SURGICAL HISTORY Procedure Laterality Date - CHOLECYSTECTOMY 1974 - COLONOSCOPY 2001? - COLONOSCOPY FLX DX W/COLLJ SPEC WHEN PFRMD 05/14/2014 Colonoscopy - COLONOSCOPY FLX DX W/COLLJ SPEC WHEN PFRMD 07/03/2017 Colonoscopy - ESOPHAGOGASTRODUODENOSCOPY TRANSORAL DIAGNOSTIC 07/03/2017 EGD - ESOPHAGOGASTRODUODENOSCOPY TRANSORAL DIAGNOSTIC 06/22/2019 EGD - PAST SURGICAL HISTORY OF 06/02/2017 sinus surgery - PAST SURGICAL HISTORY OF 04/01/2018 uterine prolapse - TOTAL ABDOMINAL HYSTERECT W/WO RMVL TUBE OVARY 1986 TAHBSO (benign), ovarian cysts, appendectomy FAMILY HISTORY Problem Relation Age of Onset - Colon Cancer Mother - Allergies Mother - Heart disease Mother - Diabetes Maternal Grandmother - Coronary Artery Disease Maternal Grandmother - Coronary Artery Disease Maternal Grandfather - Coronary Artery Disease Father - Hypertension Father Social History Tobacco Use - Smoking status: Never Smoker - Smokeless tobacco: Never Used Substance and Sexual Activity - Alcohol use: No - Drug use: No - Sexual activity: Yes Partners: Male control/protection: Surgical Comment: HYSTERECTOMY ALLERGIES Allergen Reactions - Pravachol [Pravasta* Itching November 20, 2010 -- itching without rash - Ryxzmez-Pxu-Ajt Red* Itching, Unknown - Codeine chest pain AND pressure - Doxycycline Rash Blisters in mouth - Levofloxacin Other: See Comments Itching. - Penicillins Rash swell AND uticaria Has used cephalosporins - Sulfa (Sulfonamide * uticaria Review of Systems Constitutional: Negative for fever. HENT: Negative for trouble swallowing. Eyes: Negative for visual disturbance. Respiratory: Negative for shortness of breath. Cardiovascular: Negative for chest pain. Gastrointestinal: Negative for abdominal pain. Genitourinary: Negative for frequency. Musculoskeletal: Negative for arthralgias. Skin: Negative for rash. Neurological: Positive for weakness and numbness. Negative for seizures, syncope, facial asymmetry, speech difficulty, light-headedness and headaches. Numbness and weakness right arm and right leg Hematological: Negative for adenopathy. Psychiatric/Behavioral: Negative for suicidal ideas. All other systems reviewed and are negative. Physical Exam Vitals BP Pulse Temp Temp src Resp SpO2 Weight Height 03/30/22 1446 03/30/22 1444 03/30/22 1444 03/30/22 1444 03/30/22 1444 03/30/22 1444 03/30/22 1444 -- 145/77 86 36.7 ?C (98 ?F) Temporal 15 95 % 87.1 kg (192 lb) Physical Exam Vitals and nursing note reviewed. Constitutional: Appearance: Normal appearance. HENT: Head: Normocephalic and atraumatic. Right Ear: Tympanic membrane, ear canal and external ear normal. Left Ear: Tympanic membrane, ear canal and external ear normal. Nose: Nose normal. Mouth/Throat: Mouth: Mucous membranes are moist. Eyes: Extraocular Movements: Extraocular movements intact. Conjunctiva/sclera: Conjunctivae normal. Pupils: Pupils are equal, round, and reactive to light. Cardiovascular: Rate and Rhythm: Normal rate and regular rhythm. Pulses: Normal pulses. Heart sounds: Normal heart sounds. No murmur heard. No friction rub. No gallop. Pulmonary: Effort: Pulmonary effort is normal. No respiratory distress. Breath sounds: No wheezing, rhonchi or rales. Abdominal: General: There is no distension. Palpations: Abdomen is soft. There is no mass. Tenderness: There is no abdominal tenderness. There is no right CVA tenderness, left CVA tenderness, guarding or rebound. Hernia: No hernia is present. Mu (more content not included)... Normal [facility] HISTORY PHYSICALon HISTORY PHYSICAL HNO ID: [id number] Author: Clarisse Dawkins MD Service: Hospital Medicine Author Type: Physician Type: HANDP Filed: 2022 5:50 PM Note Text: DEPARTMENT OF HOSPITAL MEDICINE HISTORY AND PHYSICAL EXAM SERVICE DATE: 03/30/2022 Code Status: Not on file SERVICE TIME: 6:16 PM Primary Care Physician: Eulalio Sykes MD NIGHT AND WEEKEND COVERAGE: [place] COVERAGE: Days: [id number], please page attending physician. Nights: [phone], please page [place] Night coverage pager [phone]. Subjective CHIEF COMPLAINT: Right sided numbness HPI: 71yo female with PMH HTN, hyperlipidemia, Bipolar 1, depression, presents today with complaints of right sided numbness that started 1 day ago around 0830. Patient reports she woke up 1 day ago and was getting dressed when she developed a weird sensation. Patient reports about 15 minutes later, she then began to feel pins and needles sensation to her right hand that radiated up the right arm and into the right face. Patient reports about 30 minutes following this, she developed right leg numbness. Patient went to [facility] for her symptoms and had a negative workup, thus she was discharged back home. Patient reports by this morning, she was having difficulty ambulating as her balance was off and she was having difficulty grasping items in her right hand. Patient reports she was having difficulty swallowing her pills last night, reporting they felt stuck on the right side of my throat. Patient reports this is not a new issue as she occasionally has dysphagia, but last night was worse than normal. Patient reports she called her PCP office today given the unimproved symptoms and it was recommended that she go to the ED for further evaluation. Patient reports she had an increase to her BP medication 2 days ago at her PCP visit. In the ED: CMP- glucose 112 CBC- unremarkable Trop negative CTA head/neck and CT Brain- 17% stenosis of the cervical right ICA and 33% stenosis of the cervical left ICA by NASCET criteria. Patent cervical vertebral arteries. Bilateral MCA, bilateral 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, and right PICA stenoses. Treatment- gabapentin, ASA Case was discussed with teleneuro who felt patient is outside TNK window. Recs to admit patient for MRI and start DAPT. Patient remained hemodynamically stable and will be admitted for further management of acute CVA. PAST MEDICAL HISTORY Diagnosis Date Bipolar I disorder, most recent episode (or current) unspecified Detrusor sphincter dyssynergia Headache has seen neurology and had mri, mra and mrv. HLD (hyperlipidemia) Major depressive disorder, single episode, unspecified Unspecified personal history presenting hazards to health PAST SURGICAL HISTORY Procedure Laterality Date CHOLECYSTECTOMY 1975 COLONOSCOPY 2001? COLONOSCOPY FLX DX W/COLLJ SPEC WHEN PFRMD 05/14/2014 Colonoscopy COLONOSCOPY FLX DX W/COLLJ SPEC WHEN PFRMD 07/03/2017 Colonoscopy ESOPHAGOGASTRODUODENOSCOPY TRANSORAL DIAGNOSTIC 07/03/2017 EGD ESOPHAGOGASTRODUODENOSCOPY TRANSORAL DIAGNOSTIC 06/22/2019 EGD PAST SURGICAL HISTORY OF 06/02/2017 sinus surgery PAST SURGICAL HISTORY OF 04/01/2018 uterine prolapse TOTAL ABDOMINAL HYSTERECT W/WO RMVL TUBE OVARY 1987 TAHBSO (benign), ovarian cysts, appendectomy FAMILY HISTORY Problem Relation Age of Onset Colon Cancer Mother Allergies Mother Heart disease Mother Diabetes Maternal Grandmother Coronary Artery Disease Maternal Grandmother Coronary Artery Disease Maternal Grandfather Coronary Artery Disease Father Hypertension Father Social History Tobacco Use Smoking status: Never Smoker Smokeless tobacco: Never Used Substance Use Topics Alcohol use: No Drug use: No PRIOR TO ADMISSION MEDICATIONS: (Not in a hospital admission) personally reviewed medication list with patient. Updated list and ordered medications as appropriate. ALLERGIES Allergen Reactions Pravachol [Pravasta* Itching November 20, 2010 -- itching without rash Gbffpbl-Tfw-Tyr Red* Itching, Unknown Codeine chest pain AND pressure Doxycycline Rash Blisters in mouth Levofloxacin Other: See Comments Itching. Penicillins Rash swell AND uticaria Has used cephalosporins Sulfa (Sulfonamide * uticaria REVIEW OF SYSTEM: GENERAL: No weight loss, malaise or fevers HEENT: Negative for frequent or significant headaches, No changes in hearing or vision, no nose bleeds or other nasal problems NECK: Negative for pain and significant neck swelling RESPIRATORY: Negative for cough, hemoptysis or shortness of breath CARDIOVASCULAR: Negative for chest pain, leg swelling or palpitations GI: No nausea, vomiting, or diarrhea : No dysuria, frequency or incontinence MUSCULOSKELETAL: Negative for joint pain or swelling, back pain or muscle pain SKIN: Negative for lesions, rash, and itching PSYCH: Negative for sleep disturbance, mood disorder and recent psychosocial st (more content not included)... Normal [facility] Lipid 1996 panelon 2 Cholesterol [Mass/Vol] 259 mg/dL High <200 [facility] Comment on above: Order Comment: Erci trejo Type: BLOOD SPECIMENOrdering Facility: [facility] Address: [address] [place] [address] Result Comment: <200 mg/dL, Desirable 200-239 mg/dL, Borderline high >239 mg/dL, High Performed By: #### 2 4321-2, 20910-3, NAMAN, 3015-3 ####[facility] LABORATORYCLIA [id number] [address] OF [facility] Cholesterol in HDL [Mass/Vol] 33 mg/dL Low >39 [facility] Comment on above: Order Comment: Cynthiagayle trejo Type: BLOOD SPECIMENOrdering Facility: [facility] Address: [address] [place] [address] Result Comment: 40-5 9 mg/dL, Acceptable >59 mg/dL, High: Negative risk factor for coronary heart disease <40 mg/dL, Low: Positive risk factor for coronary heart disease Performed By: #### 2 4321-2, 59715-3, NAMAN, 3015-3 ####CHR[facility] LABORATORYCLIA [id number] [address] Cholesterol in LDL [Mass/Vol] 155 mg/dL High <100 [facility] Comment on above: Order Comment: Speci [facility] Type: BLOOD SPECIMENOrdering Facility: [facility] Address: [address] [place] [address] Result Comment: <100 mg/dL, Optimal 100-129 mg/dL, Near optimal/above optimal 130-159 mg/dL, Borderline high 160-189 mg/dL, High >189 mg/dL, Very high Secondary prevention optimal LDL Cholesterol levels are recommended to be < 70 mg/dL Performed By: #### 2 4321-2, 57982-5, NAMAN, 3015-3 ####CHR[facility] LABORATORYCLIA [id number] [address] Cholesterol in LDL/Cholesterol in HDL [Mass ratio] 4.70 {ratio} High <2.54 [facility] Comment on above: Order Comment: Cynthiagayle trejo Type: BLOOD SPECIMENOrdering Facility: [facility] Address: [address] [place] [address] Result Comment: Refe rence: 1. National Cholesterol Education Program ATP III Guideline At-A-Glance Quick Desk Reference: National Heart, Lung, and Blood [place]. National Institutes of Health. 2001: NIH Publication No. 01-3305. 2. An International Atherosclerosis Society position paper: global recommendations for the management of dyslipidemia: executive summary, Atherosclerosis. 2014: 232(2):410-413. Performed By: #### 2 4321-2, 50143-5, NAMAN, 3015-3 ####CHRIS LABORATORYCLIA [id number] [address] Cholesterol in VLDL [Mass/Vol] 71 mg/dL High <30 [facility] Comment on above: Order Comment: Eric neil Type: BLOOD SPECIMENOrdering Facility: [facility] Address: [address] [place] [address] Performed By: #### 2 4321-2, 11001-0, NAMAN, 3015-3 ####CHR[facility] LABORATORYCLIA [id number] [address] Cholesterol non HDL [Mass/Vol] 226 mg/dL High <130 [facility] Comment on above: Order Comment: Eric trejo Type: BLOOD SPECIMENOrdering Facility: [facility] Address: [address] [place] [address] Result Comment: <130 mg/dL, Optimal 130-159 mg/dL, Near optimal/above optimal 160-189 mg/dL, Borderline high 190-219 mg/dL, High >219 mg/dL, Very high Secondary prevention optimal non HDL Cholesterol levels are recommended to be <100 mg/dL Performed By: #### 2 4321-2, 03434-2, NAMAN, 6-3 ####CHRIS LABORATORYCLIA [id number] [address] Cholesterol.total/Cho lesterol in HDL [Mass ratio] 7.85 {ratio} High <5.10 [facility] Comment on above: Order Comment: Eric neil Type: BLOOD SPECIMENOrdering Facility: [facility] Address: [address] [address] Performed By: #### 2 4321-2, 90058-2, NAMAN, 3015-3 ####CHRIS LABORATORYCLIA [id number] [place], [place] [address] [place] [address] STATES OF [facility] FASTING TIME unknown Normal [facility] Comment on above: Order Comment: Eric neil Type: BLOOD SPECIMENOrdering Facility: [facility] Address: [address] [place] [address] Performed By: #### 2 4321-2, 26110-7, NAMAN, 3015-3 ####CHRIS LABORATORYCLIA [id number] [place], [place] [address] [place] [address] [place] Triglyceride [Mass/Vol] 356 mg/dL High <150 [facility] Comment on above: Order Comment: Eric neil Type: BLOOD SPECIMENOrdering Facility: [facility] Address: [address] [place] [address] Result Comment: <150 mg/dL, Normal 150-199 mg/dL, Borderline high 200-499 mg/dL, High >499 mg/dL, Very high Performed By: #### 2 4321-2, 61361-9, NAMAN, 3015-3 ####CHRIS LABORATORYCLIA [id number] [address] [place] OF [place] PT panel Coag (PPP)on 2021 INR Coag (PPP) [Relative time] 1.0 {INR} Normal 0.9-1.3 [facility] Comment on above: Order Comment: Eric neil Type: BLOOD SPECIMENOrdering Facility: [facility] Address: [address] [place] [address] Result Comment: Sveta min K Antagonist (VKA) Therapeutic Range: INR 2 to 3 (Target INR of 2.5) Note: For patients treated with VKA drugs, such as warfarin, the [place] [employer] 2012 Guideline recommends a therapeutic INR range of 2 to 3 (target INR of 2.5). This recommendation includes high-risk patients with antiphospholipid syndrome with previous arterial or venous thromboembolism, current-generation mechanical or bioprosthetic aortic heart valve replacement. Note: Patients with mechanical aortic valve replacement and additional risk factors for thromboembolic events (atrial fibrillation, previous thromboembolism, LV dysfunction, hypercoagulable conditions) or an older generation mechanical AVR (i.e., ball in-Cage) or any mechanical MVR should have a INR therapeutic range of 2.5 to 3.5 (target INR of 3). Ruben GH, et al. Chest 2012, 141:7S-47S Essie RA, et al. [facility] 2017, 70: 252-289 Performed By: #### 1 4979-9, 84783-7 ####[facility] LABORATORYCLIA [id number] [place] [address] [place] PT Coag (PPP) [Time] 11.0 s Normal 9.7-13.0 [facility] Comment on above: Order Comment: Speci men Type: BLOOD SPECIMENOrdering Facility: [facility] Address: [address] [place] [address] Performed By: #### 1 4979-9, 83102-2 ####DAD[facility] LABORATORYCLIA [id number] [place] [address] [place] SARS-CoV-2 RNA Resp Ql JAZIEL+p robeon 03-30-2022 SARS-CoV-2 (COVID-19) RNA JAZIEL+probe Ql (Resp) COVID 19 RESULT: SARS-CoV-2 (Agent of COVID-19) Not Detected by RT-PCR or equivalent method. This test has been authorized by FDA under an Emergency Use Authorization (EUA). Normal [facility] Comment on above: Performed By: #### 9 4500-6 ####[facility] LABORATORYCLIA [id number] [place] [address] [place] TROPONIN Ton 03-30-2022 Troponin T.cardiac [Mass/Vol] ug/L Normal 0.000-0.02 9 [facility] Comment on above: Order Comment: Speci men Type: BLOOD SPECIMENOrdering Facility: [facility] Address: [address] [place] [address] Performed By: #### 2 4321-2, 39112-9, NAMAN, 3016-3 ####[facility] LABORATORYCLIA [id number] [address] TSH SerPl-aCncon 03-30-2022 TSH Qn 3.170 m[IU]/L Normal 0.270-4.20 0 [facility] Comment on above: Order Comment: Speci men Type: BLOOD SPECIMENOrdering Facility: [facility] Address: [address] [place] [address] Performed By: #### 2 4321-2, 74808-4, NAMAN, 3016-3 ####[facility] LABORATORYCLIA [id number] [address] aPTT PPPon 03-30-2022 aPTT Coag (PPP) [Time] 29.6 s Normal 23.0-32.4 [facility] Comment on above: Order Comment: Speci men Type: BLOOD SPECIMENOrdering Facility: [facility] Address: [address] [place] [address] Performed By: #### 1 4979-9, 19048-0 ####[facility] LABORATORYCLIA [id number] [address] Absolute lymphocyte counton 03-29-2022 Lymphocytes Auto (Unsp spec) [#/Vol] 3.06 10*3/uL 0.83-4.51 [facility] Work Phone: Basophil percentageon 2021 Basophil percentage 0-5 SEEN /hpf 0-5 [facility] Work Phone: Basophils/100 WBC (Bld) 0.9 % 0-1 [facility] Work Phone: Bilirubin [Mass/Vol] 0.50 mg/dL 0.20-1.00 [facility] Work Phone: [phone] Comment on above: For patients on eltr ombopag therapy, use of Dimension Streetman TBIL is not recommended. Chloride [Moles/Vol] 104 mmol/L 98-107 [facility] Work Phone: Eosinophils/100 WBC (Bld) 3.2 % 0-5 [facility] Work Phone: Glucose [Mass/Vol] 121 mg/dL 74-106 [facility] Work Phone: Comment on above: Fasting Glucose resu lt from 100 to 125 mg/dL suggests IMPAIRED HOMEOSTASIS per A.D.A. criteria. Neutrophils (Bld) [#/Vol] 2.5 10*3/uL 2.0-7.7 [facility] Work Phone: Neutrophils/100 WBC (Bld) 38.5 % 47-70 [facility] Work Phone: Potassium [Moles/Vol] 4.1 mmol/L 3.5-5.1 [facility] Work Phone: Protein [Mass/Vol] 8.0 g/dL 6.4-8.2 [facility] Work Phone: Sodium [Moles/Vol] 138 mmol/L 136-145 [facility] Work Phone: WBC (Bld) [#/Vol] 6.5 10*3/uL 4.4-11.0 [facility] Work Phone: [phone] Bilirubin Test strip Ql (U)o n 03-29-2022 Bilirubin Ql (U) Negative Negative [facility] Work Phone: Blood erythrocytes count (nu mber/volume)on 03-29-2022 RBC (Bld) [#/Vol] 4.48 10*6/uL 4.2-5.4 [facility] Work Phone: Blood hemoglobin measurement (mass/volume)on 03-29-2022 Hemoglobin (Bld) [Mass/Vol] 12.9 g/dL 12.0-15.0 [facility] Work Phone: Blood lymphocytes/100 leukoc yteson 03-29-2022 Lymphocytes/100 WBC (Bld) 46.8 % 19-41 [facility] Work Phone: Blood monocytes/100 leukocyt eson 03-29-2022 Monocytes/100 WBC (Bld) 10.1 % 0-10 [facility] Work Phone: Blood platelet mean volumeon 03-29-2022 Platelet mean volume (Bld) [Entitic vol] 10.9 fL 6.2-12.0 [facility] Work Phone: Determination of erythrocyte mean corpuscular volume (MCV)on 03-29-2022 MCV (RBC) [Entitic vol] 90.2 fL 81-99 [facility] Work Phone: Glucose Glucometer (BldC) [M ass/Vol]on 03-29-2022 Glucose [Mass/Vol] 118 mg/dL 74-106 [facility] Work Phone: Comment on above: MANAGEMENT OF PATIEN T CARE PER NURSING PROTOCOL Hematocrit Auto (Bld) [Volum e fraction]on 03-29-2022 Hematocrit (Bld) [Volume fraction] 40.4 % 37-47 [facility] Work Phone: INR in Blood by Coagulation assayon 03-29-2022 INR Coag (Bld) [Relative time] 1.0 {INR} [facility] Work Phone: Ketones Test strip Ql (U)on 03-29-2022 Ketones Ql (U) Negative Negative [facility] Work Phone: Laboratory - Chemistry and C hemistry - challengeon 03-29-2022 ALP [Catalytic activity/Vol] 81 U/L 45-117 [facility] Work Phone: [phone] ALT [Catalytic activity/Vol] 67 U/L 13-56 [facility] Work Phone: [phone] CO2 [Moles/Vol] 32.0 mmol/L 21.0-32.0 [facility] Work Phone: [phone] Globulin (S) [Mass/Vol] 4.3 g/dL 2.2-4.2 [facility] Work Phone: Urea nitrogen/Creatinine [Mass ratio] 22.3 mg/mg 10-20 [facility] Work Phone: Laboratory - Coagulationon 0 03-29-2022 aPTT Coag (Bld) [Time] 34.7 s 24.1-36.2 [facility] Work Phone: PT Coag (PPP) [Time] 13.3 s 11.7-14.9 [facility] Work Phone: Laboratory - Hematology and Cell countson 03-29-2022 Erythrocyte distribution width (RBC) [Entitic vol] 42.5 fL 35.1-43.9 [facility] Work Phone: Erythrocyte distribution width (RBC) [Ratio] 13.0 % 11.6-14.6 [facility] Work Phone: Immature granulocytes/100 WBC (Bld) 0.500 % 0.0-0.9 [facility] Work Phone: Comment on above: IG% - Immature Granu locytes (promyelocytes, myelocytes and metamyelocytes) > 1% indicates that a LEFT SHIFT is Present. MCH (RBC) [Entitic mass] 28.8 pg 27.0-32.0 [facility] Work Phone: Nucleated RBC/100 WBC (Bld) [Ratio] 0 % 0-5 [facility] Work Phone: MCHC Auto (RBC) [Mass/Vol]on 03-29-2022 MCHC (RBC) [Mass/Vol] 31.9 g/dL 32-36 [facility] Work Phone: Mucus LM Ql (Urine sed)on Mucus Ql (Urine sed) 0 SEEN /hpf [facility] Work Phone: Nitrite Test strip Ql (U)on 03-29-2022 Nitrite Ql (U) Negative Negative [facility] Work Phone: No Panel Informationon 03-29 Troponin I High Sensitivity 4 pg/mL 3.0-54.0 [facility] Work Phone: Comment on above: Please Note: New Charlene t Units and Gender Specific Reference Ranges. For more information see Policy Stat Procedure Streetman High Sensitivity Troponin (TNIH) and attachments. Estimated Creatinine Clearance Calc 45.85 ml/min [facility] Work Phone: Estimated GFR (MDRD) Amer 104 mL/min >60 [facility] Work Phone: Comment on above: GFR Calc Estimated GFR (MDRD) Non-Af Amer 86 mL/min >60 [facility] Work Phone: Comment on above: Non- GFR Calc Platelets bldon 03-29-2022 Platelets (Bld) [#/Vol] 234 10*3/uL 150-450 [facility] Work Phone: Protein Test strip Ql (U)on 03-29-2022 Protein Ql (U) Negative Negative [facility] Work Phone: Serum or plasma albumin corazon urement (mass/volume)on 03-29-2022 Albumin [Mass/Vol] 3.7 g/dL 3.2-5.0 [facility] Work Phone: Serum or plasma albumin/glob ulin mass ratioon 03-29-2022 Albumin/Globulin [Mass ratio] 0.9 {ratio} 0.9-2.4 [facility] Work Phone: Serum or plasma calcium corazon urement (mass/volume)on 03-29-2022 Calcium [Mass/Vol] 9.8 mg/dL 8.5-10.1 [facility] Work Phone: Serum or plasma creatinine m easurement (mass/volume)on 03-29-2022 Creatinine [Mass/Vol] 0.72 mg/dL 0.55-1.02 [facility] Work Phone: Comment on above: The validity of the calculated GFR & GFRAA in patients over 70 years has not been determined. Clinical correlation is essential. Serum or plasma urea nitroge n measurement (mass/volume)on 03-29-2022 Urea nitrogen [Mass/Vol] 16 mg/dL 7-18 [facility] Work Phone: Squamous epithelial cells de tection in urine sediment by light microscopyon 03-29-2022 Epithelial cells.squamous LM Ql (Urine sed) 0-5 SEEN /hpf 5-10 [facility] Work Phone: Thin prep Papanicolaou smear with manual screeningon 03-29-2022 Thin prep Papanicolaou smear with manual screening 58 U/L 15-37 [facility] Work Phone: [phone] Thin prep Papanicolaou smear with manual screening 2 5-15 [facility] Work Phone: [phone] Urine blood detectionon 03-03 RBC Ql (U) Negative Negative [facility] Work Phone: [phone] RBC Ql (U) 0 SEEN /hpf 0-5 [facility] Work Phone: Urine clarityon 03-29-2022 Clarity (U) Clear Clear [facility] Work Phone: Urine color determinationon 03-29-2022 Color (U) Yellow Yellow [facility] Work Phone: Urine glucose detectionon Glucose Ql (U) Normal mg/dl Normal [facility] Work Phone: [phone] Urine leukocyte esterase det ection by dipstickon 03-29-2022 Leukocyte esterase Test strip Ql (U) 25 /ul Negative [facility] Work Phone: [phone] Urine pHon 03-29-2022 pH (U) 6.5 [pH] 5.0 - 8.0 [facility] Work Phone: Urine sediment bacteria coun t by microscopy (number/high power field)on 03-29-2022 Bacteria LM.HPF (Urine sed) [#/Area] 0 /[HPF] None Seen [facility] Work Phone: Urine specific gravity measu rementon 03-29-2022 Specific gravity (U) [Rel density] 1.010 1.002-1.03 0 [facility] Work Phone: Urobilinogen Auto test strip Ql (U)on 03-29-2022 Urobilinogen Ql (U) Normal mg/dl Normal [facility] Work Phone: CNOVon 03-28-2022 CNOV Office Visit (FAMPWS ) SHIRA SHEN ([id number]) 1950 F NFR Date Time Provider Department 03/28/22 10:00 AM EULALIO SYKES During your visit today, we recorded the following information about you: Pulse Respiration Blood pressure Weight 82/minute 16/minute 146/94 87.3 kg Eulalio Sykes MD 03/28/2022 5:51 PM Signed Patient presents with: F/U 6 Month HPI: Patient presents today for office visit for follow up. URO: Patient requesting to get appt set up. Last 3-4 weeks worsening of bladder discomfort and urge to urinate. Currently taking Detrol - ineffective. No dysuria. No burning. No hematuria. A couple of months ago, urine had a sweet smell. Hx of UTI in December 2021 - cleared up. SPINE: Patient to schedule follow up appt. Chronic left shoulder pain with radiation to elbow. Pain worsening the last month and half. Recent injection in December. Pain relief for a month. Currently taking gabapentin and extra strength tylenol - minimal relief. JANE: Uses breathing strips - does not use CPAP Sleeps well: No. Feels rested on awakening: No No daytime fatigue: Yes Snoring: No RHEUM: Hx of sicca syndrome. Stable. HYPERGLYCEMIA: Patient does not check sugars. A1c trending up. Last A1c was 6.3. Currently not treating. Patient watching diet - diet reviewed. REEVES: Stable. tx with extra tylenol PSYCH: Seeing psychiatry. Mood is stable. Good appetite and fluid intake. Still taking the zoloft. MEDICATIONS: Current Outpatient Medications Medication Sig - sertraline (ZOLOFT) 25 mg tablet Take 25 mg by mouth twice daily. - gabapentin (NEURONTIN) 300 mg capsule Take 1 capsule by mouth three times daily for 90 days. - colestipol (COLESTID) 1 gram tablet Take 1 tablet by mouth twice daily. - propranolol ER (INDERAL LA) 80 mg 24 hr capsule Take 1 capsule by mouth once daily. - montelukast (SINGULAIR) 10 mg tablet Take 1 tablet by mouth daily at bedtime. - tolterodine ER (DETROL LA) 4 mg 24 hr capsule Take 1 capsule by mouth once daily. - fexofenadine HCl (JOVAN ORAL) Take by mouth. - coenzyme Q10 (CO Q-10) 100 mg cap capsule Take 200 mg by mouth once daily. - esomeprazole (NEXIUM 24HR) 20 mg capsule Take 1 capsule by mouth DAILY (6 AM). - fluticasone (FLONASE) 50 mcg/actuation nasal spray Use 2 Sprays in each nostril once daily. Rinse mouth after use. - COMPOUNDED PRESCRIPTION CPAP 9 cmH2O with humidification and a standard size ResMed AirFit N10 nasal mask without chin strap - acetaminophen (TYLENOL EXTRA STRENGTH) 500 mg tablet Take 2 tablets by mouth every 6 hours as needed for Pain. Take every 6 hours for first three days. Then take every 6 hours as needed. - polyethylene glycol 3350 (MIRALAX) 17 gram/dose powder Take 17 g by mouth once daily as needed (constipation). for constipation. - Ascorbic Acid (VITAMIN C) 500 mg cpER Take 1 Each by mouth once daily. - cholecalciferol (VITAMIN D) 1,000 unit tab tablet Take 1,000 Units by mouth once daily. - multivitamins(MULTIPLE VITAMIN TAB) Take one(1) tablet daily. - cephALEXin (KEFLEX) 500 mg capsule Take 1 capsule by mouth twice daily. (Patient not taking: Reported on 02/01/2022 ) - cranberry fruit extract (CRANBERRY ORAL) Take by mouth. - docusate sodium (COLACE) 100 mg capsule Take 1 capsule by mouth twice daily as needed for Constipation. - sertraline (ZOLOFT) 50 mg tablet Take 50 mg by mouth once daily. (Patient not taking: Reported on 02/01/2022 ) No current facility-administered medications for this visit. ALLERGIES: ALLERGIES Allergen Reactions - Pravachol [Pravasta* Itching November 20, 2010 -- itching without rash - Jfzhtsx-Ehx-Fxf Red* Itching, Unknown - Codeine chest pain AND pressure - Doxycycline Rash Blisters in mouth - Levofloxacin Other: See Comments Itching. - Penicillins Rash swell AND uticaria Has used cephalosporins - Sulfa (Sulfonamide * uticaria PAST MEDICAL HISTORY Diagnosis Date - Bipolar I disorder, most recent episode (or current) unspecified - Detrusor sphincter dyssynergia - Headache has seen neurology and had mri, mra and mrv. - HLD (hyperlipidemia) - Major depressive disorder, single episode, unspecified - Unspecified personal history presenting hazards to health PAST SURGICAL HISTORY Procedure Laterality Date - CHOLECYSTECTOMY 1974 - COLONOSCOPY 2001? - COLONOSCOPY FLX DX W/COLLJ SPEC WHEN PFRMD 05/14/2014 Colonoscopy - COLONOSCOPY FLX DX W/COLLJ SPEC WHEN PFRMD 07/03/2017 Colonoscopy - ESOPHAGOGASTRODUODENOSCOPY TRANSORAL DIAGNOSTIC 07/03/2017 EGD - ESOPHAGOGASTRODUODENOSCOPY TRANSORAL DIAGNOSTIC 06/22/2019 EGD - PAST SURGICAL HISTORY OF 06/02/2017 sinus surgery - PAST SURGICAL HISTORY OF 04/01/2018 uterine prolapse - TOTAL ABDOMINAL HYSTERECT W/WO RMVL TUBE OVARY 1987 TAHBSO (benign), ovarian cysts, appendectomy FAMI (more content not included)... [facility] HISTORY PHYSICALon HISTORY PHYSICAL HNO ID: [id number] Author: Jewel Pinedo MD Service: Pain Management Author Type: Physician Type: HANDP Filed: 01/04/2022 10:56 AM Note Text: HISTORY AND PHYSICAL EXAMINATION PATIENT NAME: Shira Shen DATE of SERVICE: 01/04/2022 Shira Shen is here for the pain mangement procedure. The patients presents with persistent pain complaints. Shira Shen denies any interval changes or new pain complaints or focal neurologic deficits. PAST MEDICAL HISTORY Diagnosis Date - Bipolar I disorder, most recent episode (or current) unspecified - Detrusor sphincter dyssynergia - Headache has seen neurology and had mri, mra and mrv. - HLD (hyperlipidemia) - Major depressive disorder, single episode, unspecified - Unspecified personal history presenting hazards to health PAST SURGICAL HISTORY Procedure Laterality Date - CHOLECYSTECTOMY 1974 - COLONOSCOPY 2001? - COLONOSCOPY FLX DX W/COLLJ SPEC WHEN PFRMD 05/14/2014 Colonoscopy - COLONOSCOPY FLX DX W/COLLJ SPEC WHEN PFRMD 07/03/2017 Colonoscopy - ESOPHAGOGASTRODUODENOSCOPY TRANSORAL DIAGNOSTIC 07/03/2017 EGD - ESOPHAGOGASTRODUODENOSCOPY TRANSORAL DIAGNOSTIC 06/22/2019 EGD - PAST SURGICAL HISTORY OF 06/02/2017 sinus surgery - PAST SURGICAL HISTORY OF 04/01/2018 uterine prolapse - TOTAL ABDOMINAL HYSTERECT W/WO RMVL TUBE OVARY 1987 TAHBSO (benign), ovarian cysts, appendectomy Social History Tobacco Use - Smoking status: Never Smoker - Smokeless tobacco: Never Used Substance Use Topics - Alcohol use: No - Drug use: No FAMILY HISTORY Problem Relation Age of Onset - Colon Cancer Mother - Allergies Mother - Heart disease Mother - Diabetes Maternal Grandmother - Coronary Artery Disease Maternal Grandmother - Coronary Artery Disease Maternal Grandfather - Coronary Artery Disease Father - Hypertension Father ALLERGIES Allergen Reactions - Pravachol [Pravasta* Itching November 20, 2010 -- itching without rash - Rlswtbs-Lra-Lbw Red* Itching, Unknown - Codeine chest pain AND pressure - Doxycycline Rash Blisters in mouth - Levofloxacin Other: See Comments Itching. - Penicillins Rash swell AND uticaria Has used cephalosporins - Sulfa (Sulfonamide * uticaria Current Facility-Administered Medications Medication Dose Route Frequency - NaCl 0.9% iv infusion 30 mL/hr INTRAVENOUS CONTINUOUS Physical Exam: Performed in conjunction with observation. The patient is alert and oriented x3. The patient is in no acute distress. Neck: Supple. The range of motion is intact. Lungs: clear CVR: RRR. Extremities: no reported edema or erythema. Examination indicates no changes Impression: Cervical canal stenosis Plan: The informed consent has been obtained. The plan is to proceed with the procedure as planned. SIGNATURE: Jewel Pinedo MD DATE: January 04, 2022 TIME: 10:56 AM [facility] OPERATIVE NOon 01-04-2022 OPERATIVE NO HNO ID: [id number] Author: Jewel Pinedo MD Service: Pain Management Author Type: Physician Type: Operative Report Filed: 01/04/2022 11:14 AM Note Text: PATIENT NAME: Shira Shen SERVICE DATE: 01/04/2022 PROCEDURE NOTE PREOPERATIVE DIAGNOSIS(ES) Cervical DDD Cervical spondylosis Cervical disc displacement Cervical radiculopathy POSTOPERATIVE DIAGNOSIS(ES): SAME PROCEDURE: Left paramedian C5-6 interlaminar cervical epidural steroid injection under fluoroscopy. ANESTHESIA: Conscious sedation with Versed 3 mg IV INDICATIONS: The patient presents for cervical epidural steroid injection. Since the last assessment, the patient denies any new pain complaints and denies any focal neurologic deficits. The plan is to proceed with cervical intralaminar epidural steroid injection. The risks and benefits of the procedure were discussed. Specifically, the risks of bleeding, infection, inadvertent dural puncture, spinal heaches, vasovagal reaction, epidural hematoma, partial or permanent nerve injury were covered. The potential side effects of medications used in procedures including increase in pain, headaches, facial redness or warmth (flushing), anxiety or mood swings, sleeplessness, fever, high blood sugar, brief reduction in immunity were discussed. The patient expressed understanding of potential risks and wishes to proceed with the procedure. PROCEDURE NOTE: The patient was brought to the operating room procedure suite. The patient was positioned prone on the fluoroscopy table. Continuous hemodynamic monitoring was initiated including blood pressure, EKG, and pulse oximetry. Supplemental oxygen per nasal canula was started. The intravenous medication was administered incrementally to provide conscious sedation and to allow the patient to remain comfortable and conversant throughout the procedure. The posterior cervical area was prepped in sterile fashion. Upon AP and Lateral projection under fluoroscopy, C5-6 level was identified. Entry point was marked and anesthetized with 5ml of 0.5% Lidocaine. This was followed by insertion of an 18-gauge epidural Tuohy needle, which was inserted and advanced using a loss of resistance technique. Once the epidural space was encountered, aspiration was performed which was negative for blood or CSF. This was followed by injection of Omnipaque 300, a total of 0.25 ml, which revealed a spread along the posterior epidural space. There was no evidence of intravascular or intrathecal flow. This was then followed by a total injection of 1 mL of 0.5% Xylocaine with 40 mg of Depomerol mixture. The patient tolerated the procedure well. The needle was removed intact. Dry dressing was placed over the injection site. The patient was taken to the recovery room in stable condition. EBL: nil Start time: 11:04 AM End time: 11:12 AM I was present the entire time and personally performed the procedure. SIGNATURE: Jewel Pinedo MD DATE: January 04, 2022 TIME: 11:13 AM [facility] XR FLUOROSCOPYon 01-04-2022 XR FLUOROSCOPY * * *Final Report* * * DATE OF EXAM: Jan 04 2022 11:16AM MDR [id number] - XR FLUOROSCOPY / PROCEDURE REASON: PAIN * * * * Physician Interpretation * * * * INDICATION: PAIN TECHNIQUE: Fluoroscopy with 3 views of the cervical spine Fluoroscopic Radiation Summary: Plane A, Air Kerma: 5.9 mGy Dose Area Product (DAP): 0.0 mGy*cm^2 Fluoro time: 0:17 min:sec FINDINGS/ IMPRESSION: A needle with injected contrast is seen posterior and just left of midline at C5-6. Please refer to the performing LIP's report. Bakeshop Cleaner: PSCB Transcribe Date/Time: Jan 04 2022 11:18A Dictated by : WILL CALLAWAY MD This examination was interpreted and the report reviewed and electronically signed by: WILL CALLAWAY MD on Jan 04 2022 11:18AM EST [id number] [facility] EMG(NEURO/NI)on 01-01-2022 [facility] HISTORY PHYSICALon HISTORY PHYSICAL HNO ID: [id number] Author: Jewel Pinedo MD Service: Pain Management Author Type: Physician Type: HANDP Filed: 11/28/2021 8:07 AM Note Text: HISTORY AND PHYSICAL EXAMINATION PATIENT NAME: Shira Shen DATE of SERVICE: 11/28/2021 Subjective HPI: Shira Shen is here for the pain mangement procedure. The patient presents with persistent pain complaints. Shira Shen denies any interval changes or new pain complaints or focal neurologic deficits. PAST ANESTHESIA HISTORY: No history of adverse event PAST MEDICAL HISTORY Diagnosis Date - Bipolar I disorder, most recent episode (or current) unspecified - Detrusor sphincter dyssynergia - Headache has seen neurology and had mri, mra and mrv. - HLD (hyperlipidemia) - Major depressive disorder, single episode, unspecified - Unspecified personal history presenting hazards to health PAST SURGICAL HISTORY Procedure Laterality Date - CHOLECYSTECTOMY 1974 - COLONOSCOPY 2001? - COLONOSCOPY FLX DX W/COLLJ SPEC WHEN PFRMD 05/14/2014 Colonoscopy - COLONOSCOPY FLX DX W/COLLJ SPEC WHEN PFRMD 07/03/2017 Colonoscopy - ESOPHAGOGASTRODUODENOSCOPY TRANSORAL DIAGNOSTIC 07/03/2017 EGD - ESOPHAGOGASTRODUODENOSCOPY TRANSORAL DIAGNOSTIC 06/22/2019 EGD - PAST SURGICAL HISTORY OF 06/02/2017 sinus surgery - PAST SURGICAL HISTORY OF 04/01/2018 uterine prolapse - TOTAL ABDOMINAL HYSTERECT W/WO RMVL TUBE OVARY 1987 TAHBSO (benign), ovarian cysts, appendectomy Prior to Admission medications as of 11/27/21 1711 Medication Sig Last Dose Taking gabapentin (NEURONTIN) 300 mg capsule Take 1 capsule by mouth three times daily for 90 days. 11/27/2021 at 1900 Yes propranolol ER (INDERAL LA) 80 mg 24 hr capsule Take 1 capsule by mouth once daily. 11/27/2021 at 1000 Yes montelukast (SINGULAIR) 10 mg tablet Take 1 tablet by mouth daily at bedtime. 11/27/2021 at 2000 Yes tolterodine ER (DETROL LA) 4 mg 24 hr capsule Take 1 capsule by mouth once daily. 11/27/2021 at 1000 Yes fexofenadine HCl (JOVAN ORAL) Take by mouth. 11/27/2021 at 1000 Yes colestipol (COLESTID) 1 gram tablet Take 1 tablet by mouth twice daily. 11/27/2021 at 1130 Yes coenzyme Q10 (CO Q-10) 100 mg cap capsule Take 200 mg by mouth once daily. 11/27/2021 at 1000 Yes esomeprazole (NEXIUM 24HR) 20 mg capsule Take 1 capsule by mouth DAILY (6 AM). 11/27/2021 at 1000 Yes acetaminophen (TYLENOL EXTRA STRENGTH) 500 mg tablet Take 2 tablets by mouth every 6 hours as needed for Pain. Take every 6 hours for first three days. Then take every 6 hours as needed. 11/27/2021 at 2200 Yes Ascorbic Acid (VITAMIN C) 500 mg cpER Take 1 Each by mouth once daily. 11/27/2021 at 1000 Yes cholecalciferol (VITAMIN D) 1,000 unit tab tablet Take 1,000 Units by mouth once daily. 11/27/2021 at 1000 Yes sertraline (ZOLOFT) 50 mg tablet Take 50 mg by mouth once daily. 11/27/2021 at 1600 Yes multivitamins(MULTIPLE VITAMIN TAB) Take one(1) tablet daily. 11/27/2021 at 1600 Yes cranberry fruit extract (CRANBERRY ORAL) Take by mouth. Unknown at Unknown time fluticasone (FLONASE) 50 mcg/actuation nasal spray Use 2 Sprays in each nostril once daily. Rinse mouth after use. Unknown at Unknown time COMPOUNDED PRESCRIPTION CPAP 9 cmH2O with humidification and a standard size ResMed AirFit N10 nasal mask without chin strap docusate sodium (COLACE) 100 mg capsule Take 1 capsule by mouth twice daily as needed for Constipation. Unknown at Unknown time polyethylene glycol 3350 (MIRALAX) 17 gram/dose powder Take 17 g by mouth once daily as needed (constipation). for constipation. Unknown at Unknown time ALLERGIES Allergen Reactions - Pravachol [Pravasta* Itching November 20, 2010 -- itching without rash - Eqxbsih-Jej-Qdg Red* Itching, Unknown - Codeine chest pain AND pressure - Doxycycline Rash Blisters in mouth - Levofloxacin Other: See Comments Itching. - Penicillins Rash swell AND uticaria Has used cephalosporins - Sulfa (Sulfonamide * uticaria Objective PAST MEDICAL HISTORY Diagnosis Date - Bipolar I disorder, most recent episode (or current) unspecified - Detrusor sphincter dyssynergia - Headache has seen neurology and had mri, mra and mrv. - HLD (hyperlipidemia) - Major depressive disorder, single episode, unspecified - Unspecified personal history presenting hazards to health PAST SURGICAL HISTORY Procedure Laterality Date - CHOLECYSTECTOMY 1974 - COLONOSCOPY 2001? - COLONOSCOPY FLX DX W/COLLJ SPEC WHEN PFRMD 05/14/2014 Colonoscopy - COLONOSCOPY FLX DX W/COLLJ SPEC WHEN PFRMD 07/03/2017 Colonoscopy - ESOPHAGOGASTRODUODENOSCOPY TRANSORAL DIAGNOSTIC 07/03/2017 EGD - ESOPHAGOGASTRODUODENOSCOPY TRANSORAL DIAGNOSTIC 06/22/2019 EGD - PAST SURGICAL HISTORY OF 06/02/2017 sinus surgery - PAST SURGICAL HISTORY OF 04/01/2018 uterine prolapse - TOTAL ABDOMINAL HYSTERECT W/WO RMVL TUBE OVARY 1987 TAHBSO (benign), ovarian cysts, appendectomy Social Hist (more content not included)... [facility] OPERATIVE NOon 11-28-2021 OPERATIVE NO HNO ID: [id number] Author: Jewel Pinedo MD Service: Pain Management Author Type: Physician Type: Operative Report Filed: 11/28/2021 8:46 AM Note Text: PATIENT NAME: Shira Shen SERVICE DATE: 11/28/2021 PROCEDURE NOTE PREOPERATIVE DIAGNOSIS(ES) Cervical DDD Cervical spondylosis Cervical disc displacement Cervical radiculopathy POSTOPERATIVE DIAGNOSIS(ES): SAME PROCEDURE: Left paramedian C7-T1 interlaminar cervical epidural steroid injection under fluoroscopy. ANESTHESIA: Conscious sedation with Versed 3 mg IV INDICATIONS: The patient presents for cervical epidural steroid injection. Since the last assessment, the patient denies any new pain complaints and denies any focal neurologic deficits. The plan is to proceed with cervical intralaminar epidural steroid injection. The risks and benefits of the procedure were discussed. Specifically, the risks of bleeding, infection, inadvertent dural puncture, spinal heaches, vasovagal reaction, epidural hematoma, partial or permanent nerve injury were covered. The potential side effects of medications used in procedures including increase in pain, headaches, facial redness or warmth (flushing), anxiety or mood swings, sleeplessness, fever, high blood sugar, brief reduction in immunity were discussed. The patient expressed understanding of potential risks and wishes to proceed with the procedure. PROCEDURE NOTE: The patient was brought to the operating room procedure suite. The patient was positioned prone on the fluoroscopy table. Continuous hemodynamic monitoring was initiated including blood pressure, EKG, and pulse oximetry. Supplemental oxygen per nasal canula was started. The intravenous medication was administered incrementally to provide conscious sedation and to allow the patient to remain comfortable and conversant throughout the procedure. The posterior cervical area was prepped in sterile fashion. Upon AP and Lateral projection under fluoroscopy, C7-T1 level was identified. Entry point was marked and anesthetized with 5ml of 0.5% Lidocaine. This was followed by insertion of an 18-gauge epidural Tuohy needle, which was inserted and advanced using a loss of resistance technique. Once the epidural space was encountered, aspiration was performed which was negative for blood or CSF. This was followed by injection of Omnipaque 300, a total of 0.25 cc, which revealed a spread along the posterior epidural space. There was no evidence of intravascular or intrathecal flow. This was then followed by a total injection of 2 mL of 0.5% Xylocaine with 40 mg of Depomerol. The patient tolerated the procedure well. The needle was removed intact. Dry dressing was placed over the injection site. The patient was taken to the recovery room in stable condition. EBL: nil Start time: 8:37 AM End time: 8:45 AM I was present the entire time and personally performed the procedure. SIGNATURE: Jewel Pinedo MD DATE: November 28, 2021 TIME: 8:46 AM [facility] XR FLUOROSCOPYon 11-28-2021 XR FLUOROSCOPY * * *Final Report* * * DATE OF EXAM: Nov 28 2021 8:48AM [facility] 5513 - XR FLUOROSCOPY / PROCEDURE REASON: PAIN * * * * Physician Interpretation * * * * TECHNIQUE: XR FLUOROSCOPY COMPARISON: No prior study for comparison. TECHNIQUE: Limited fluoroscopic imaging of the cervical spine CLINICAL INDICATION: PAIN Fluoroscopic Radiation Summary: Plane A, Air Kerma: 3.8 mGy Dose Area Product (DAP): 0.0 mGy*cm^2 Fluoro time: 0:11 min:sec IMAGE NUMBER: 3 RESULT: Needle directed at the lower cervical spine epidural space. IMPRESSION: 1. As above. Bakeshop Cleaner: [facility] CENT[facility]itchie Transcribe Date/Time: Nov 28 2021 8:55A Dictated by : LOU SHEA MD This examination was interpreted and the report reviewed and electronically signed by: LOU SHEA MD on Nov 28 2021 8:55AM EST [id number] [facility] XR Shoulder - left 3 Viewson 08-31-2021 IMPRESSION: 1. No acute bony process. 2. Degenerative change left AC joint. Bakeshop Cleaner: [facility] Transcribe Date/Time: Aug 31 2021 4:51P Dictated by : JESSICA JOEL MD This examination was interpreted and the report reviewed and electronically signed by: JESSICA JOEL MD on Aug 31 2021 4:52PM EST DIVISION OF RADIOLOGY * * *Final Report* * * DATE OF EXAM: Aug 31 2021 3:17PM WOX 5252 - XR SHLDR >/=3V AP/APURVA AP/OTHR LT / PROCEDURE REASON: Acute pain of left shoulder * * * * Physician Interpretation * * * * EXAMINATION: XR SHLDR >/=3V AP/APURVA AP/OTHR LT HISTORY: Acute Pain on the top of the left shoulder x 3 months after lifting a gallon of milk. TECHNIQUE: XR SHLDR >/=3V AP/APURVA AP/OTHR LT Laterality: LEFT Number of different views (projections): 3 M: XB_1 COMPARISON: There are no prior relevant examinations available for comparison within the [facility]. RESULT: 3 views of the left shoulder show no acute osseous, articular or soft tissue abnormality. There is degenerative change of the left AC joint with periarticular osteophytosis. There is no significant inferior projecting spurs. The acromiohumeral distance is preserved. Glenohumeral joint is preserved. The visualized lung is clear. DIVISION OF RADIOLOGY Provider, [facility] - 08/31/2021 * * *Final Report* * * DATE OF EXAM: Aug 31 2021 3:17PM WOX 5252 - XR SHLDR >/=3V AP/APURVA AP/OTHR LT / PROCEDURE REASON: Acute pain of left shoulder * * * * Physician Interpretation * * * * EXAMINATION: XR SHLDR >/=3V AP/APURVA AP/OTHR LT HISTORY: Acute Pain on the top of the left shoulder x 3 months after lifting a gallon of milk. TECHNIQUE: XR SHLDR >/=3V AP/APURVA AP/OTHR LT Laterality: LEFT Number of different views (projections): 3 M: XB_1 COMPARISON: There are no prior relevant examinations available for comparison within the [facility]. RESULT: 3 views of the left shoulder show no acute osseous, articular or soft tissue abnormality. There is degenerative change of the left AC joint with periarticular osteophytosis. There is no significant inferior projecting spurs. The acromiohumeral distance is preserved. Glenohumeral joint is preserved. The visualized lung is clear. IMPRESSION IMPRESSION: 1. No acute bony process. 2. Degenerative change left AC joint. 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 Pending Prescriptions Disp Refills TOLTERODINE ER 4 MG CAPSULE,EXTENDED RELEASE 24 HR 90 capsule 4 Sig: Take 1 capsule by mouth once daily. LANDRY: No Patient last appointment: 04/20/2021 Patient Phone numbers: [phone] (home) Request is for script(s) to be escript to pharmacy. [facility] Allergies As of Date: 04/27/2021 Noted Allergy Reaction PRAVACHOL (PRAVASTATIN) 11/20/2010 9 - Itching Comments: November 20, 2010 -- itching without rash DOCWJQR-ZTZ-RAL REDUCTASE INHIBIT*02/26/2014 9 - Itching CODEINE 03/21/2005 Comments: chest pain AND pressure DOXYCYCLINE 09/15/2018 2 - Rash Comments: Blisters in mouth LEVOFLOXACIN 05/18/2016 14 - Other: See Comments Comments: Itching. PENICILLINS 03/21/2005 2 - Rash Comments: Richie Has used cephalosporins SULFA (SULFONAMIDE ANTIBIOTICS) 03/21/2005 Comments: uticaria Date Reviewed: 04/17/2021 Reviewed by: Jacklyn Trejo LPN - Fully Assessed Reason for Visit: Refill Request [94] Visit Diagnosis:Urge incontinence [N39.41] Order(s):tolterodine ER (DETROL LA) 4 mg 24 hr capsuleTake 1 capsule by mouth once daily.Disp: 90 capsuleRfl: 4 Prescriptions as of 04/27/2021 - tolterodine ER (DETROL LA) 4 mg 24 hr capsule Take 1 capsule by mouth once daily. - propranolol ER (INDERAL LA) 60 mg 24 hr capsule Take 1 capsule by mouth once daily. - cranberry fruit extract (CRANBERRY ORAL) Take by mouth. - fexofenadine HCl (JOVAN ORAL) Take by mouth. - colestipol (COLESTID) 1 gram tablet Take 1 tablet by mouth twice daily. - montelukast (SINGULAIR) 10 mg tablet Take 1 tablet by mouth daily at bedtime. - coenzyme Q10 (CO Q-10) 100 mg cap capsule Take 200 mg by mouth once daily. - esomeprazole (NEXIUM 24HR) 20 mg capsule Take 1 capsule by mouth DAILY (6 AM). - fluticasone (FLONASE) 50 mcg/actuation nasal spray Use 2 Sprays in each nostril once daily. Rinse mouth after use. - COMPOUNDED PRESCRIPTION CPAP 9 cmH2O with humidification and a standard size ResMed AirFit N10 nasal mask without chin strap - acetaminophen (TYLENOL EXTRA STRENGTH) 500 mg tablet Take 2 tablets by mouth every 6 hours as needed for Pain. Take every 6 hours for first three days. Then take every 6 hours as needed. - docusate sodium (COLACE) 100 mg capsule Take 1 capsule by mouth twice daily as needed for Constipation. - polyethylene glycol 3350 (MIRALAX) 17 gram/dose powder Take 17 g by mouth once daily as needed (constipation). for constipation. - Ascorbic Acid (VITAMIN C) 500 mg cpER Take 1 Each by mouth once daily. - cholecalciferol (VITAMIN D) 1,000 unit tab tablet Take 1,000 Units by mouth once daily. - sertraline (ZOLOFT) 50 mg tablet Take 50 mg by mouth once daily. - multivitamins(MULTIPLE VITAMIN TAB) Take one(1) tablet daily. 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] 12/13/2007 Bipolar I disorder (HCC) [F31.9] PERS HX [facility] NOS [Z91.89] 12/13/2007 Tuberculin test reaction [795.5] 12/13/2007 Panic disorder without agoraphobia [F41.0] 12/13/2007 Urinary frequency [R35.0] 03/29/2009 Hyperactivity of bladder [N31.8] 05/03/2009 Routine general medical examination at [facility]*05/19/2009 12/24/2014 Class: Chronic Routine gynecological examination [Z01.419] 05/19/2009 12/24/2014 Class: Chronic Impaired fasting glucose [R73.01] 05/19/2009 Hyperlipidemia [E78.5] 05/16/2011 Family history of colon cancer [Z80.0] 02/26/2014 12/24/2014 Bilateral carotid artery stenosis [I65.23] 03/01/2017 Sicca syndrome (HCC) [M35.00] 03/01/2017 Headache [R51.9] 12/06/2017 Acid reflux [K21.9] 06/24/2017 Lower abdominal pain [R10.30] 06/24/2017 12/06/2017 Tachycardia [R00.0] 06/28/2017 Rectocele [N81.6] 11/14/2017 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] 11/14/2017 OAB (overactive bladder) [N32.81] 11/14/2017 Urge incontinence [N39.41] 11/14/2017 Multiple gastric polyps [K31.7] 12/06/2017 Constipation [K59.00] 01/01/2018 Incontinence of feces [R15.9] 01/01/2018 JANE (obstructive sleep apnea) [G47.33] 05/23/2018 Brain cyst [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 Medications Discontinued During This Encounter Prescriptions - tolterodine ER (DETROL LA (more content not included)... 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 Pending Prescriptions Disp Refills TOLTERODINE ER 4 MG CAPSULE,EXTENDED RELEASE 24 HR 90 capsule 4 Sig: Take 1 capsule by mouth once daily. LANDRY: No Patient last appointment: 04/07/2021 Patient Phone numbers: [phone] (home) Request is for script(s) to be escript to pharmacy. 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 PENICILLINS 03/21/2005 2 - Rash Comments: swell AND uticaria Has used cephalosporins SULFA (SULFONAMIDE ANTIBIOTICS) 03/21/2005 Comments: uticaria Date Reviewed: 04/17/2021 Reviewed by: Jacklyn Trejo LPN - Fully Assessed Reason for Visit: Refill Request [94] Primary Visit Diagnosis:Urge incontinence [N39.41] Order(s):tolterodine ER (DETROL LA) 4 mg 24 hr capsuleTake 1 capsule by mouth once daily.Disp: 90 capsuleRfl: 4 Prescriptions as of 04/20/2021 - tolterodine ER (DETROL LA) 4 mg 24 hr capsule Take 1 capsule by mouth once daily. - propranolol ER (INDERAL LA) 60 mg 24 hr capsule Take 1 capsule by mouth once daily. - cranberry fruit extract (CRANBERRY ORAL) Take by mouth. - fexofenadine HCl (JOVAN ORAL) Take by mouth. - colestipol (COLESTID) 1 gram tablet Take 1 tablet by mouth twice daily. - montelukast (SINGULAIR) 10 mg tablet Take 1 tablet by mouth daily at bedtime. - coenzyme Q10 (CO Q-10) 100 mg cap capsule Take 200 mg by mouth once daily. - esomeprazole (NEXIUM 24HR) 20 mg capsule Take 1 capsule by mouth DAILY (6 AM). - fluticasone (FLONASE) 50 mcg/actuation nasal spray Use 2 Sprays in each nostril once daily. Rinse mouth after use. - COMPOUNDED PRESCRIPTION CPAP 9 cmH2O with humidification and a standard size ResMed AirFit N10 nasal mask without chin strap - acetaminophen (TYLENOL EXTRA STRENGTH) 500 mg tablet Take 2 tablets by mouth every 6 hours as needed for Pain. Take every 6 hours for first three days. Then take every 6 hours as needed. - docusate sodium (COLACE) 100 mg capsule Take 1 capsule by mouth twice daily as needed for Constipation. - polyethylene glycol 3350 (MIRALAX) 17 gram/dose powder Take 17 g by mouth once daily as needed (constipation). for constipation. - Ascorbic Acid (VITAMIN C) 500 mg cpER Take 1 Each by mouth once daily. - cholecalciferol (VITAMIN D) 1,000 unit tab tablet Take 1,000 Units by mouth once daily. - sertraline (ZOLOFT) 50 mg tablet Take 50 mg by mouth once daily. - multivitamins(MULTIPLE VITAMIN TAB) Take one(1) tablet daily. 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] 12/13/2007 Bipolar I disorder (HCC) [F31.9] PERS HX HEALTH HAZARD NOS [Z91.89] 12/13/2007 Tuberculin test reaction [795.5] 12/13/2007 Panic disorder without agoraphobia [F41.0] 12/13/2007 Urinary frequency [R35.0] 03/29/2009 Hyperactivity of bladder [N31.8] 05/03/2009 Routine general medical examination at [facility]*05/19/2009 12/24/2014 Class: Chronic Routine gynecological examination [Z01.419] 05/19/2009 12/24/2014 Class: Chronic Impaired fasting glucose [R73.01] 05/19/2009 Hyperlipidemia [E78.5] 05/16/2011 Family history of colon cancer [Z80.0] 02/26/2014 12/24/2014 Bilateral carotid artery stenosis [I65.23] 03/01/2017 Sicca syndrome (HCC) [M35.00] 03/01/2017 Headache [R51.9] 12/06/2017 Acid reflux [K21.9] 06/24/2017 Lower abdominal pain [R10.30] 06/24/2017 12/06/2017 Tachycardia [R00.0] 06/28/2017 Rectocele [N81.6] 11/14/2017 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] 11/14/2017 OAB (overactive bladder) [N32.81] 11/14/2017 Urge incontinence [N39.41] 11/14/2017 Multiple gastric polyps [K31.7] 12/06/2017 Constipation [K59.00] 01/01/2018 Incontinence of feces [R15.9] 01/01/2018 JANE (obstructive sleep apnea) [G47.33] 05/23/2018 Brain cyst [G93.0] 06/10/2019 Vertigo [R42] 06/17/2019 Atrophic vaginitis [N95.2] 08/24/2020 Nocturia [R35.1] 08/24/2020 Feeling of incomplete bladder emptying [R39.14] 08/24/2020 Prescriptions ordered this encounter Disp Refills Start End TOLTERODINE ER 4 MG CAPSULE,EXTENDED* 90 c* 4 04/20/2021 04/15/2022 Route: ORAL Sig: Take 1 capsule by mouth once daily. Medications Discontinued During This Encounter Prescriptions - tolterodine ER (DET (more content not included)... Normal [facility] Amanda 04-07-2021 PAT Telephone (UROLAE) SHIRA SHEN ([id number]) 1950 F NFR Date Time Provider Department 04/07/21 MICHI BARNARD During your visit today, we recorded the following information about you: Zulema Maciel RN 04/07/2021 9:52 AM Signed ----- Message from Michi Barnard MD sent at 04/07/2021 9:49 AM EDT ----- Macrobid sent to the pharmacy Zulema Maciel RN 04/07/2021 9:54 AM Signed Left voicemail message to call the office. Zulema Maciel RN Received: Today Michi Barnard MD [facility] Clinical Pool Macrobid sent to the pharmacy ? Associated Results Contains abnormal data URINE CULTURE Order: [id number] Status: Preliminary result ??Visible to patient: No (not released) Dx: Dysuria; Urge incontinence Specimen Information: URINE ? 1 Result Note Component 2 d ago Resulting Agency Specimen Request Specimen received in preservative P [facility] Laboratory Culture Abnormal 10,000 - <50,000 CFU/ml Escherichia coli P [facility] Susceptibility Escherichia coli MINIMUM INHIBITORY CONCENTRATION(VITEK) (Preliminary) Ampicillin Susceptible Ampicillin Sulbact Susceptible Cefazolin Susceptible 1 Cefepime Susceptible Ceftriaxone Susceptible Ciprofloxacin Susceptible Ertapenem Susceptible Gentamicin Susceptible Meropenem Susceptible Nitrofurantoin Susceptible Piperacillin/Tazobac Susceptible Trimeth sulfameth Susceptible 1 CLSI breakpoints for therapy of uncomplicated UTI's due to E.coli, K.pneumoniae, and P.mirabilis were applied and may be used to predict the activity of oral agents(cefaclor, cefdinir, cefpodoxime, cefprozil, cefuroxime, cephalexin, loracarbef). Specimen Collected: 04/05/21 10:44 AM Last Resulted: 04/07/21 ?9:44 AM ?Lab Flowsheet ? Order Details ? View Encounter ? Lab and Collection Details ? Routing ? Result History ? P=Value has a preliminary status?? Result Care Coordination Result Notes Michi Barnard MD 04/07/2021 ?9:49 AM EDT Back to Top Macrobid sent to the pharmacy Contains abnormal data UA DIP, URINE (POC) Order: [id number] Status: Final result ??Visible to patient: Yes (MyChart) 1 Result Note Ref Range AND Units 2 d ago 7 mo ago 8 mo ago GLUCOSE UA (POCT) Negative mg/dL Negative Negative Negative BILIRUBIN UA (POCT) Negative Negative Negative Negative KETONE UA (POCT) Negative mg/dL Negative Negative Negative SPECIFIC GRAVITY UA (POCT) 1.005 - 1.030 1.010 1.010 1.020 HEMOGLOBIN/BLOOD UA ?(POCT) Negative Negative Negative Negative PH UA (POCT) 4.5 - 8.0 5.0 5.5 6.0 PROTEIN UA (POCT) Negative mg/dL Negative Negative Negative UROBILINOGEN UA (POCT) Normal E.U./dL 0.2 0.2 0.2 NITRITE UA (POCT) Negative Negative Negative Negative LEUKOCYTES UA (POCT) Negative TraceAbnormal TraceAbnormal SmallAbnormal COLOR UA (POCT) Yellow Yellow Yellow CLARITY UA (POCT) Clear Clear Clear Resulting Agency [facility] Specimen Collected: 04/05/21 10:30 AM Last Resulted: 04/05/21 10:30 AM ?Lab Flowsheet ? Order Details ? View Encounter ? Lab and Collection Details ? Routing ? Result History ? Result Care Coordination Result Notes Michi Barnard MD 04/07/2021 ?9:49 AM EDT Back to [facility] sent to the pharmacy Status of Other Orders Expected CONSULT TO UROLOGY 04/05/21 Aruna Oliva Cma 04/07/2021 10:17 AM Signed Patient advised, and agreed. Aruna Oliva Cma Allergies As of Date: 04/07/2021 Noted Allergy Reaction PRAVACHOL (PRAVASTATIN) 11/20/2010 9 - Itching Comments: November 20, 2010 -- itching without rash ZSLZIME-GXK-YTO REDUCTASE INHIBIT*02/26/2014 9 - Itching CODEINE 03/21/2005 Comments: chest pain AND pressure DOXYCYCLINE 09/15/2018 2 - Rash Comments: Blisters in mouth LEVOFLOXACIN 05/18/2016 14 - Other: See Comments Comments: Itching. PENICILLINS 03/21/2005 2 - Rash Comments: swell AND uticaria Has used cephalosporins SULFA (SULFONAMIDE ANTIBIOTICS) 03/21/2005 Comments: uticaria Date Reviewed: 04/05/2021 Reviewed by: Michi Barnard MD - Fully Assessed Reason for Visit: Results [95] Prescriptions as of 04/07/2021 - nitrofurantoin monohydrate and macrocrystal (MACROBID) 100 mg capsule Take 1 capsule by mouth twice daily for 7 days. FOR 7 DAYS. - tolterodine ER (DETROL LA) 4 mg 24 hr capsule Take 1 capsule by mouth once daily. - cranberry fruit extract (CRANBERRY ORAL) Take by mouth. - fexofenadine HCl (JOVAN ORAL) Take by mouth. - propranolol (INDERAL) 20 mg tablet Take 1 tablet by mouth twice daily. - colestipol (COLESTID) 1 gram tablet Take 1 tablet by mouth twice daily. - montelukast (SINGULAIR) 10 mg tablet Take 1 tablet by mouth daily at bedtime. - coenzyme Q10 (CO Q-10) 100 mg cap capsule Take 200 mg by mouth once daily. - esomeprazole (NEXIUM 24HR) 20 mg capsule Take 1 capsule by mouth DAILY (6 AM). - flutic (more content not included)... Normal [facility] Urinalysis Routineon 018 Bacteria LM.HPF #/area (Urine sed) NONE Normal None [facility] Comment on above: Performed By: #### U RIN2 ####[place] [address] Ep Cells Urine 0.3 /hpf Normal 0.0-5.0 [facility] Comment on above: Performed By: #### U RIN2 ####[address] [address] Hyaline Cast 0.0 /lpf Normal 0.0-1.0 [facility] Comment on above: Performed By: #### U RIN2 ####[place] [address] RBC,Urine 0.4 /hpf Normal 0.0-5.0 [facility] Comment on above: Performed By: #### U RIN2 ####[address] [address] WBC, Urine 1.0 /hpf Normal 0.0-5.0 [facility] Comment on above: Performed By: #### U RIN2 ####[facility] [place], [place] [address] Appearance Nom (U) CLOUDY Normal [facility] Comment on above: Performed By: #### U RIN2 ####[facility] [place], [place] [address] Bilirubin Urine Negative Normal Negative [facility] Comment on above: Performed By: #### U RIN2 ####[address] [address] Color Nom (U) YELLOW Normal [facility] Comment on above: Performed By: #### U RIN2 ####[place] [address] Glucose Ql (U) Negative Normal Negative [facility] Comment on above: Performed By: #### U RIN2 ####[place] [address] Hemoglobin,Urine LARGE Abnormal Negative [facility] Comment on above: Performed By: #### U RIN2 ####[address] [address] Ketone Urine Negative Normal Negative [facility] Comment on above: Performed By: #### U RIN2 ####[place] [address] Leukocytes Esterase TRACE Abnormal Negative [facility] Comment on above: Performed By: #### U RIN2 ####[place] [address] Nitrites Urine Negative Normal Negative [facility] Comment on above: Performed By: #### U RIN2 ####[address] [address] pH Test strip (U) 6.0 [pH] Normal 5.0-8.0 [facility] Comment on above: Performed By: #### U RIN2 ####[address] [address] Protein Urine Negative Normal Negative [facility] Comment on above: Performed By: #### U RIN2 ####[place] [address] Specific [place], Ur 1.006 Normal 1.005-1 .03 0 [facility] Comment on above: Performed By: #### U RIN2 ####[facility] [place] [address] Urobilinogen,Ur 0.2 EU/dL Normal 0.0-1.0 [facility] Comment on above: Performed By: #### U RIN2 ####[facility] [place] [address] Cult Urineon 03-31-2018 Cult Urine Test performed at [facility] ORGANISM: Enterococcus faecalis (ID: 1) 10,000-50,000 CFU/ml Normal [facility] Comment on above: Performed By: #### C _URI ####[place] [address] Basic Metabolic Panlon 03-27 Anion gap 13 mmol/L Normal 9-18 [facility] Comment on above: Performed By: #### C BC, BMP ####[address] Calcium 9.0 mg/dL Normal 8.5-10.5 [facility] Comment on above: Performed By: #### C BC, BMP ####[place] [address] Chloride 101 mmol/L Normal 98-110 [facility] Comment on above: Performed By: #### C BC, BMP ####[place] [phone] CO2 26 mmol/L Normal 23-32 [facility] Comment on above: Performed By: #### C BC, BMP ####[address] Creatinine 0.74 mg/dL Normal 0.70-1.40 [facility] Comment on above: Performed By: #### C BC, BMP ####[place] [phone] eGFR (non-black) mL/min/{1.73_m2} Normal >60 [facility] Comment on above: Performed By: #### C BC, BMP ####[place] [phone] eGFR- Amer. >60 Normal >60 [facility] Comment on above: Performed By: #### C BC, BMP ####[place] [phone] Glucose mass conc 125 mg/dL High 65-100 [facility] Comment on above: Performed By: #### C BC, BMP ####[place] [phone] Potassium molar conc 4.3 mmol/L Normal 3.5-5.[address] [facility] Comment on above: Performed By: #### C BC, BMP ####[place] [phone] Sodium 140 mmol/L Normal 132-148 [facility] Comment on above: Performed By: #### C BC, BMP ####[place] [phone] Urea nitrogen 15 mg/dL Normal 8-25 [facility] Comment on above: Performed By: #### C BC, BMP ####[place] [phone] CBCon 03-27-2018 Erythrocyte distribution width Auto Ratio (RBC) 13.9 % Normal 11.5-15.0 [facility] Comment on above: Performed By: #### C BC, BMP ####[place] [phone] Erythrocytes (RBC) 3.76 10*6/uL Low 3.90-5.[address] [facility] Comment on above: Performed By: #### C BC, BMP ####[place] [phone] Hematocrit (HCT) 33.3 % Low 36.0-46.0 [facility] Comment on above: Performed By: #### C BC, BMP ####[place] [phone] Hemoglobin mass conc (Bld) 10.5 g/dL Low 11.5-15.5 [facility] Comment on above: Performed By: #### C BC, BMP ####[place] [phone] MCH 27.9 pG Normal 26.0-34.0 [facility] Comment on above: Performed By: #### C BC, BMP ####[place] [phone] MCHC mass conc (RBC) 31.5 g/dL Normal 30.5-36.[address] [facility] Comment on above: Performed By: #### C BC, BMP ####[place] [phone] MCV 88.6 fL Normal 80.0-100.0 [facility] Comment on above: Performed By: #### C BC, BMP ####[place] [phone] Platelet mean volume (PMV) 10.7 fL Normal 9.0-12.7 [facility] Comment on above: Performed By: #### C BC, BMP ####[place] [phone] Platelets 244 10*3/uL Normal 150-400 [facility] Comment on above: Performed By: #### C BC, BMP ####[place] [phone] WBC (Leukocytes) 8.92 10*3/uL Normal 3.70-11.00 [facility] Comment on above: Performed By: #### C BC, BMP ####[place] [phone] NURSING PROGon 03-27-2018 NURSING PROG HNO ID: [id number] thor: Lynda (Rn) NADEEM Hareervice: NursingAuthor Type: Registered NurseType: Nursing Progress NoteFiled: 03/27/2018 6:32 AMNote Text: Nursing Progress NotePatient Name: Shira ShenMRN: [id number] Location: /[id number] _Daily Note: No vaginal packing noted. RetroGrade infusion of 300mlSterile water completed, ragland removed. Pt able to void 400+ w/[id number]. Pt up w/ steady gait. Safety maintained.This note was completed by: Lynda Hare RN [facility] NURSING PROG O ID: [id number] thor: Caren Henley) Kelsie, Mark: (none)Author Type: Registered NurseType: Nursing Progress NoteFiled: 03/27/2018 4:14 AMNote Text: Nursing Progress NotePatient Name: Shira Hdez CentervilleMRN: [id number] Location: /[id number] _Daily Note: Patient sleeping in bed comfortably. Safety maintained. Willcontinue to monitor.This note was completed by: Caren Iglesias RN [facility]: [id number] thor: Caren Henley) Kelsie, Benjaminice: (none)Author Type: Registered NurseType: Nursing Progress NoteFiled: 03/27/2018 1:59 AMNote Text: Nursing Progress NotePatient Name: Shira BoydMRN: [id number] Location: [id number] _Daily Note:patient resting in bed. PCNA in to obtain vitals. Call lightwithin reach and bed locked in low position. Catheter with clear yellowdrainage. Will continue to monitorThis note was completed by: Caren Iglesias RN [facility] NURSING PROG HNO ID: [id number] thor: Caren (Rn) Benjamin Iglesiasice: (none)Author Type: Registered NurseType: Nursing Progress NoteFiled: 03/27/2018 1:56 AMNote Text:2000-Patient resting in bed comfortably. Ragland present with clear yellowdrainage. Bed locked and in low position, call light within reach. Willcontinue to monitor.2200-Patient in bed and resting comfortably. IV fluids discontinued.Educated on use of incentive spirometer. Safety maintained. Will continueto monitor. [facility] NURSING PROG HNO ID: [id number] thor: Lynda Henley) NADEEM Hareervice: NursingAuthor Type: Registered NurseType: Nursing Progress NoteFiled: 03/27/2018 12:34 AMNote Text: Nursing Progress NotePatient Name: Shira ShenMRN: [id number] Location: [place] [id number] _Daily Note:Pt resting in bed, comfortable. Saundra pad w/ sm amt of drainageand changed. Ragland to gravity w/ clear yellow urine of adequate amt.Passing flatus but no stool at this time. Pt states she feels constipated.Colace given per order. Will continue to monitor. Safety maintained.This note was completed by: Lynda Hare RN [facility] PLAN OF CAREon 03-27-2018 PLAN OF CARE HNO ID: [id number] thor: Evelyn Church (Conductor Yard)Service: (none)Author Type: TechnicianType: Plan of CareFiled: 03/28/2018 1:22 PMNote Text:FIFTH HAND BEDSIDE DELIVERY SURVEY1. Patient to use [facility] Bedside Delivery - NO prefer own[facility]2. If fax, patient would like us to fax prescriptions to Pharmacy [facility] Pharmacy: b. Location: c. Phone:3. Insurance card on file - NO4. Credit card for payment - NO Normal [facility] PROGRESSon 03-27-2018 Protein HNO ID: [id number] thor: Angela Guadarrama (Fel)ervice: GynecologyAuthor Type: FellowType: Progress NotesFiled: 03/27/2018 7:56 AMNote Text: At testation signed by Rock Jennings at 03/27/2018 8:17 AMUROGYN STAFF NOTE?I have seen and evaluated the patient. I agree with the fellow's findings andplan as documented and have discussed the case and management of the patient'scare with the fellow and agree with the above note.Intraoperative course reviewed. All questions answered. Ready for transition towest point.Rock Jennings, [facility] 2017 8:16 AM WARE TESTER PROGRESS NOTESERVICE DATE: March 27, 2018SERVICE TIME: 7:20 AMPOST-OP DAY # 1?ASSESSMENT AND PLAN Shira Shen is a 67 year old female s/p rightsacrospinous colpopexy, ID with levator myorrhaphy and perineorrhaphy, andcystoscopy. Doing well post-operatively and meeting post-op milestones.?Post-op- Afebrile, VSS, HDS- Pain: Toradol->Ibuprofen, Tylenol, Oxycodone, Dilaudid for BTP- IVF: HLIV- Drains: none, passed retrograde void trial this AM; excellent UOP- Diet: Regular- Antiemetics prn- Bowel regimen: colace, miralax- SCDs for VTE ppx- Encourage IS and ambulation?Carotid stenosis-Continue home propranolol?Sicca syndrome-Resume home prednisone today?Bipolar disorder-Continue home Zoloft?Dispo- Anticipate discharge todaySUBJECTIVE: Patient with on current complaints. Pain well controlled withcurrent regimen. Denies nausea/vomiting. Tolerating PO. Reports bowelflatus but no BM. Voiding spontaneously s/p Ragland removal. Ambulating.No chest pain, leg pain, or SOB.OBJECTIVE:Vital Signs:Patient Vitals for the past 24 hrs: BP Temp Temp src Pulse Resp [id number]/27/18 0157 134/65 36.4 ?C (97.6 ?F) Temporal Art 79 16 97 %03/26/18 1945 144/68 37.2 ?C (98.9 ?F) Temporal Art 84 16 94 %03/26/18 1426 146/69 36.4 ?C (97.6 ?F) Oral 88 16 95 %03/26/18 1345 134/65 36.2 ?C (97.2 ?F) - 79 16 97 %03/26/18 1315 129/68 - - 75 17 97 %03/26/18 1300 126/69 - - 75 16 98 %03/26/18 1245 131/69 - - 78 15 95 %03/26/18 1230 124/71 - - 80 14 100 %03/26/18 1215 143/75 - - 85 15 97 %03/26/18 1200 144/59 - - 85 15 100 %03/26/18 1145 142/87 - - 79 16 100 %03/26/18 1130 142/87 - - 78 17 100 %03/26/18 1121 134/73 36.2 ?C (97.2 ?F) - 86 17 100 %03/26/18 0821 148/88 36.6 ?C (97.9 ?F) Temporal Art 67 20 98 %Intake/OutputDate 03/26/18 0700 - 03/27/18 0659 03/27/18 0700 - 03/28/18 0659Shift 4277-9892 8805-7412 4599-9459 24 Hour Total 0589-3354 [id number] 24 Hour TotalINTAKE PO 100 350 450 PO 100 350 450 Other 750 750 OR 100 100 PACU ([facility] Only) 650 650 Shift Total 850 350 1200OUTPUT Urine 6134 161 4310 3665 Void (ml) 399 446 5315 Tube Output ([REMOVED] Indwelling Urinary Catheter 03/26/18 0940Foley 16 Fr 03/27/18 0604) 1050 1425 2475 Other Saundra pad count 1 x 1 x Shift Total 8674 948 8070 3665Weight (kg)Physical ExamGeneral: A/O, NAD, resting comfortably in bedCardiovascular: RRR, no M/R/GPulmonary: CAB, no wheezes/rales/rhonchiAbdomen: soft, non-tender, non-distended, +BSPerineuem: NO vaginal packing in place, no active bleedingExtremities: non-tender, non-edematous, wore SCDs overnightLABS:CBC, Coags, BMP, Mg, PhosRecent Labs [id number] 8.92HB 10.5*HCT 33.3*PLT 244NA 140K 4.3CHLOR 101CO2 26BUN 15CREAT 0.74GLUC 125*CA 9.0IMAGING: No new imagingDATA:Diagnostic tests reviewed for today's visit:Most recent labsMost recent imagingCurrent hospital medications:Current Facility-Administered Medications:0.9% NaCl 2-10 mL 2-10 mL INTRAVENOUS q 12 H Angela C (Fel) Dangelo 5 mL at03/26/18 2124ondansetron orally disintegrating 4 mg tab(s) (ZOFRAN ODT) 4 mg ORAL q 6 HPRN Angela C (Fel) HickmanOrondansetron (PF) 4 mg injection (ZOFRAN) 4 mg INTRAVENOUS q 6 H PRN Angela C(Fel) HickmandiphenhydrAMINE 25 mg (BENADRYL) 25 mg ORAL q 4 H PRN Angela C (Fel) HickmanOrdiphenhydrAMINE 25 mg injection (BENADRYL) 25 mg INTRAVENOUS q 4 H PRNLisa C (Fel) Hickmandocusate sodium 100 mg cap(s) (COLACE) 100 mg ORAL BID Angela C (Fel)Dangelo 100 mg at 03/26/18 2123polyethylene glycol 3350 17 g packet (MIRALAX, GLYCOLAX) 17 g ORAL DAILYLisa C (Fel) Dangelo 17 g at 03/26/18 1431ketorolac 15 mg injection (TORADOL) 15 mg INTRAVENOUS q 6 H Angela C (Fel)Dangelo 15 mg at 03/27/18 0514Followed byibuprofen 600 mg tab(s) (MOTRIN) 600 mg ORAL q 6 H Angela C (Fel) HickmanoxyCODONE IR 5-10 mg tab(s) (ROXICODONE) 5-10 mg ORAL q 4 H PRN Angela C(Fel) HickmanHYDROmorphone 0.2 mg injection (DILAUDID) 0.2 mg INTRAVENOUS q 2 H PRNLisa C (Fel) Hickmanacetaminophen 650 mg tab(s) (TYLENOL) 650 mg ORAL q 6 H Angela C (Fel)Dangelo 650 mg at 03/27/18 0507propranolol 20 mg tab(s) (INDERAL) 20 mg ORAL BID Deepanjana (Res) De [place] 20mg at 03/26/18 2123predniSONE 5 mg tab(s) (DELTASONE) 5 mg ORAL DAILY Deepanjana (Res) Dassertraline 50 mg tab(s) (ZOLOFT) 50 mg ORAL DAILY Deepanjana (Res) DasDiscussed with Dr. Dangelo.SIGNATURE: Angelica De Leon MD PATIENT NAME: Shira Hdez BeglyDATE: March 27, 2018 : 7:20 AM PAGER/CONTACT #: [phone]:Patient seen and examined independently. Agree with above note.Patient reports her pain is well controlled. Denies CP, SOB, N/V.Tolerating diet. Has ambulated. Already passed VT.VSS, UOP adequate. Abdominal exam soft, NT, ND. Minimal VB noted on pad.Hb stable 10.5, Cr 0.74Continue routine postoperative care as outlined above.Likely home today. DC instructions reviewed with the patient includingwho and when to call.?Angela Dangelo MD [facility] ANES [place] 03-26-2018 ANES POST HNO ID: [id number] thor: Edison Mccallume: AnesthesiologyAuthor Type: AnesthesiologistType: Anesthesia PostOpFiled: 03/26/2018 11:41 AMNote Text:POST ANESTHESIA EVALUATION NOTESERVICE DATE: 03/26/2018SERVICE TIME: 11:40 AMDOB: 1950Vitals: Temp: 36.6 ?C (97.9 ?F) 03/26/1811BP: 148/88 (P) 142/87 03/26/1811Pulse: 67 (P) 79 03/26/1811Resp: 20 (P) 16 03/26/1811SpO2: 98% (P) 100%Validated Vital Signs: YesPOST ANES STATUS: No apparent anesthetic complications. The patient isappropriately hydrated with stable respiratory and cardiovascular status.Patient has safe and adequate airway control. The patient has appropriatepain relief and no significant post operative nausea or vomiting. Thepatient has achieved baseline mental status.Further assessment by Anesthesia Service: NoneOther Remarks:SIGNATURE: Edison Varela MD PATIENT NAME: Shira ShenDATE: March 26, 2018 : 11:40 AM PAGER/CONTACT #: [phone] [facility] ANES PREOPon 03-26-2018 ANES PREOP HNO ID: [id number] thor: Edison Mccallume: AnesthesiologyAuthor Type: AnesthesiologistType: Anesthesia PreOpFiled: 03/26/2018 9:05 AMNote Text:REGIONAL ANESTHESIOLOGY DAY OF SURGERY NOTEPATIENT NAME: Shira ShenMRN: [id number]: 2Procedure(s) (LRB):COLPOPEXY VAGINAL EXTRA-PERITONEAL (N/A)ANTERIOR COLPORRHAPHY REPAIR CYSTOCELE WITH OR W/O REPAIR URETHROCELEINCLUDING CYSTOURETHROSCOPY WHEN PERFORMED (N/A)POSTERIOR COLPORRHAPHY W/ REPAIR RECTOCELE AND PERINEORRHAPHY (N/A)CYSTOSCOPY (N/A)SUSPENSION BLADDER SLING TAPE TRANSOBTURATOR (N/A)Surgeon(s):Rock JenningsEstimated body mass index is 32.96 kg/m? as calculated from the following: Height as of 03/14/18: 162.6 cm (5' 4). Weight as of 03/14/18: 87.1 kg (192 lb).ASA Class: 2Adequate NPO status: YesAllergies:ALLERGIESAllerge n Reactions- Pravachol [Pravasta* Itching November 20, 2010 -- itching without rash- Teqjhgl-Nia-Qzl Red* Itching- Codeine chest pain AND pressure- Levofloxacin Other: See Comments- Penicillins swell AND uticaria- Sulfa (Sulfonamide * uticariaAirway Assessment: MP 2; Neck ROM: Full ROM without neurologic symptoms;Airway Evaluation: No significant abnormalitiesDentition: Teeth intactSymptoms of Sleep Apnea: DeniesMost recent lab results:Hemoglobin 11.6 12/06/2017Hematocrit 37.8 12/06/2017Potassium 4.3 12/06/2017Platelet Count 328 12/06/2017Creatinine 0.70 12/06/2017EKG:normal EKG, normal sinus rhythm and RBBBVitals: 821BP: 148/88Pulse: 67Resp: 20Temp: 36.6 ?C (97.9 ?F)TempSrc: Temporal ArterySpO2: 98%Previous Anesthesia: No history of adverse event Family history ofanesthetic problems: NoneAdditional Physical Exam:Lungs: Lungs clear to auscultation. Good diaphragmatic excursion.Cardiac: Normal S1 and S2; no rubs, no murmurs and no gallopsAdditional pertinent findings: N/AOther Medical Problems/ Important Considerations:BipolarGERDEle vated CholesterolChronic Beta Alexx medication administered within 24 hours: N/AAnesthetic risks, benefits, alternatives, personnel and consent discussed:YesPatient agrees to proceed: YesBlood Products: Will accept Blood/Blood ProductsAnesthetic Plan: General LMA; Standard ASA MonitorsPain Management Plan: ROOT ProtocolParenteral or OralEPIC Chart ReviewACTIVE PROBLEM LISTBipolar I Disorder (Hcc)Tuberculin Test ReactionPanic Disorder Without AgoraphobiaUrinary FrequencyHyperactivity of BladderImpaired Fasting GlucoseHyperlipidemiaCarotid Stenosis, BilateralSicca Syndrome (Hcc)Acid RefluxTachycardiaRectoceleVag inal Vault ProlapseOab (Overactive Bladder)Urge IncontinenceMultiple Gastric PolypsConstipationIncontinenc e of FecesPAST MEDICAL HISTORYDiagnosis Date- Bipolar I disorder, most recent episode (or current) unspecified- Detrusor sphincter dyssynergia- Headache has seen neurology and had mri, mra and mrv.- HLD (hyperlipidemia)- Major depressive disorder, single episode, unspecified- Unspecified personal history presenting hazards to [facility] SURGICAL HISTORYProcedure Laterality Date- COLONOSCOP W/ OR W/O [facility] SPEC 05/14/2014 Colonoscopy- COLONOSCOP W/ OR W/O [facility] SPEC 07/03/2017 Colonoscopy- COLONOSCOPY 2001?- EGD W/O OR W/BRUSH/WASH 07/03/2017 EGD- PAST SURGICAL HISTORY OF 06/02/2017 sinus surgery- REMOVAL GALLBLADDER- TOTAL ABDOM HYSTERECTOMY TAHBSO (benign), ovarian cysts, appendectomyFAMILY HISTORYProblem Relation Age of Onset- Colon Cancer Mother- Diabetes Maternal Grandmother- Coronary Artery Disease Maternal Grandmother- Coronary Artery Disease Maternal Grandfather- Coronary Artery Disease Father- Hypertension FatherSocial History:Social HistorySubstance Use Topics- Smoking status: Never Smoker- Smokeless tobacco: Never Used- Alcohol use NoNo current facility-administered medications on file prior to encounter.Current Outpatient Prescriptions on File Prior to Encounter:acetaminophen (TYLENOL) 325 mg tablet Take 2 tablets by mouth daily atbedtime.Ascorbic Acid (VITAMIN C) 500 mg cpER Take 1 Each by mouth once daily.omeprazole (PRILOSEC) 20 mg capsule Take 20 mg by mouth once daily.oxybutynin (DITROPAN) 5 mg tablet Take 1 tablet by mouth once daily.cholecalciferol (VITAMIN D) 1,000 unit tab tablet Take 1,000 Units bymouth once daily.sertraline (ZOLOFT) 50 mg tablet Take 50 mg by mouth once daily.diphenhydrAMINE (BENADRYL) 25 mg capsule Take 1 capsule by mouth daily atbedtime.colestipol (COLESTID) 1 gram tablet Take 1 tablet by mouth twice daily.LACTOBACILLUS ACIDOPHILUS (PROBIOTIC ACIDOPHILUS ORAL) Take by mouth.multivitamins(MULTIPLE VITAMIN TAB) Take one(1) tablet daily.Inpatient medications reviewed in [facility].I have interviewed and examined the patient. I have reviewed the medicalrecord and/or the pre-anesthesia evaluation, pertinent labs, and testresults.Significant changes in the patient's condition since the History andPhysical, not otherwise documented in primary service progress notes: NoThis contains updated information obtained within 48 hours ofSurgery/Procedure.SIGNATURE : Edison Varela MD PATIENT NAME: Shira BoydlyDATE: March 26, 2018 : 9:04 AM PAGER/CONTACT #: [phone] [facility] BRIEF OP NOTon 03-26-2018 BRIEF OP NOT HNO ID: [id number] thor: Angela Guadarrama (Fel)ervice: UrogynecologyAuthor Type: FellowType: Brief Op NoteFiled: 03/26/2018 11:16 AMNote Text:BRIEF OP NOTELOG ID: [id number]/Procedure Date: 03/26/2018Incision/Procedure Start Time: 0943Incision Close/Procedure End Time: 1110Surgeon(s)/Proceduralist( s) and Ordnance Technician(s):Surgeon(s) and Role: * Rock Jennings - Primary * Angela Dangelo (Fel) - FellowProcedure(s): Right sacrospinous ligament colpopexy, posteriorcolporrhaphy with levator myorrhaphy and perineorrhaphy, cystoscopyAnesthesia: GeneralFindings:- Well suspended vaginal apex at the end of the case.- Grossly unremarkable 360 degree survey of the bladder without evidenceof suture, injury or foreign body in the bladder. Efflux appreciated fromureteral openings b/l.- Rectal exam without evidence of suture or injury to the rectum- Vaginal sweep revealed no foreign body at the end of the surgery.Estimated Blood Loss: 50 mlsSpecimens: NoneComplications: NonePre-Op/Pre-Procedure Diagnosis: Rectocele [N81.6]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]Constipation, unspecified constipation type [K59.00]Incontinence of feces, unspecified fecal incontinence type [R15.9]Post-Op/Post-Procedure Diagnosis: Rectocele [N81.6]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]Constipation, unspecified constipation type [K59.00]Incontinence of feces, unspecified fecal incontinence type [R15.9]SIGNATURE: Angela Dangelo MD PATIENT NAME: Shira ShenDATE: March 26, 2018 : 11:15 AM [facility]AG[facility] HNO ID: [id number] thor: Angelica (Res) DasService: UrogynecologyAuthor Type: ResidentType: Discharge SummariesFiled: 03/27/2018 7:42 AMNote Text:DISCHARGE SUMMARYPATIENT NAME: Shira Shen ADMISSION DATE: 03/26/2018MRN: [id number] DISCHARGE DATE: 03/27/2018Attending Physician: Rock Cardoza for Hospitalization: Scheduled surgeryDiagnosis: Active Problems: Rectocele Vaginal vault prolapse Constipation Incontinence of fecesResolved Problems: * No resolved hospital problems. *Hospital Course as Described to the Patient:You were admitted for scheduled surgery for pelvic organ prolapse. Yourhospital course was uncomplicated and you were ready for discharge onPOD1.Additional Provider to Provider Information:Patient is 67 year old female with the above medical problems who wasadmitted for her scheduled surgery. She had a right sacrospinous ligamentcolpopexy, posterior colporrhaphy with levator myorrhaphy andperineorrhaphy, cystoscopy. Please see dictated operative report fordetails concerning this case. She had an uncomplicated post operativecourse. She met all post operative mile stones. She was stable fordischarge home on POD #1. She was given the medications listed below. Shewill follow up with Dr. Jennings for post op care.Operations During Hospitalization: Right sacrospinous ligamentcolpopexy, posterior colporrhaphy with levator myorrhaphy andperineorrhaphy, cystoscopyProcedures During Hospitalization: NoneLabs and Procedures Pending at Discharge:Test Results Not Yet Available from This Hospitalization: Please Review atYour Follow Up Appointment None No pending results.Consulting Teams During Hospitalization:Treatment Team:Attending Provider: Rock Holden Condition @ Discharge: GoodDischarge Disposition: Home with self careInformation Provided to Patient: Urogyn discharge instructionsDischarge Medications: Current Discharge Medication ListSTART taking these medicationsoxyCODONE IR (ROXICODONE) 5 mgTake 5 mg by mouth every 6 hours as needed for Pain (severe pain).Earliest Fill Date: 03/27/18Qty: 28 tablet Refills: 0Associated Diagnoses:Post-operative paindocusate sodium (COLACE) 100 mgTake 100 mg by mouth twice daily as needed for Constipation.Qty: 60 capsule Refills: 0polyethylene glycol 3350 (MIRALAX, GLYCOLAX) 17 gTake 17 g by mouth once daily as needed (constipation). for constipation.Qty: 1 Bottle Refills: 1ibuprofen (MOTRIN) 600 mgTake 600 mg by mouth every 6 hours as needed for Pain. Take with food.Take every 6 hours for first three days. Then take every 6 hours asneeded.Qty: 60 tablet Refills: 0CONTINUE these medications which have CHANGEDacetaminophen (TYLENOL) 1,000 mgTake 1,000 mg by mouth every 6 hours as needed for Pain. Take every 6hours for first three days. Then take every 6 hours as needed.Qty: 60 tablet Refills: 0CONTINUE these medications which have NOT CHANGEDpredniSONE (DELTASONE) 5 mg tabletonce daily.propranolol (INDERAL) 20 mgTake 20 mg by mouth twice daily.Qty: 180 tablet Refills: 1Associated Diagnoses:Palpitations; Frequent headachesAscorbic Acid 1 EachTake 1 Each by mouth once daily.omeprazole (PriLOSEC) 20 mgTake 20 mg by mouth once daily.oxybutynin (DITROPAN) 5 mgTake 5 mg by mouth once daily.Qty: 90 tablet Refills: 3cholecalciferol (VITAMIN D3) 1,000 UnitsTake 1,000 Units by mouth once daily.sertraline (ZOLOFT) 50 mgTake 50 mg by mouth once daily.diphenhydrAMINE (BENADRYL) 25 mgTake 25 mg by mouth daily at bedtime.colestipol (COLESTID) 1 gTake 1 g by mouth twice daily.Qty: 180 tablet Refills: 4LACTOBACILLUS ACIDOPHILUS (PROBIOTIC ACIDOPHILUS ORAL)Take by mouth.multivitamins(MULTIPLE VITAMIN TAB)Take one(1) tablet daily.Refills: 0Future AppointmentsDate Time Provider Department Center04/24/2018 1:30 PM Rock Jennings [facility]App[facility] for Next [facility] Days Date and Time Provider Department Dept Phone 04/24/2018 1:30 PM Rock Headley [facility] [phone]: Angela Dangelo MD PATIENT NAME: Shira ShenDATE: March 26, 2018 : 11:37 AM PAGER/CONTACT #: [phone] [facility] NURSING PROGon 03-26-2018 NURSING PROG HNO ID: [id number] thor: Ivonne MartRn) NADEEM Lehmanervice: (none)Author Type: Registered NurseType: Nursing Progress NoteFiled: 03/26/2018 6:03 PMNote Text: Nursing Progress NotePatient Name: Shira ShenMRN: [id number] Location: -PK1C/QE-TV2X-26 _Daily Note:1800: A/Ox3, repositions in bed. LSC on RA, abd soft (+) BS,c/o lower abd pain, med with routine tylenol. Continues on IV LR @100ml/hr. Saundra pad with small amt of bloody drainage. Ragland draining clearyellow urine. PPP, PAS worn. Call light in reach.This note was completed by: Ivonne Lehman RN [facility] NURSING PROG HNO ID: [id number] thor: Seb MartRn) Benjamin Gonzalezice: (none)Author Type: Registered NurseType: Nursing Progress NoteFiled: 03/26/2018 2:51 PMNote Text: Nursing Progress NotePatient Name: Shira ShenMRN: [id number] Location: -PK1C30/MR-UC3Q-20 _Transfer Note:Patient transferred into room/unit PK1-C-30 from PACU in stablecondition. Actions taken: patient assisted into bed- admission andassessment Complete. Ragland intact - draining yellow. Saundra pad intact.Lunch ordered for patient. No futher actions taken at this time. Willcontinue to monitor and check with patient.This note was completed by: Seb Gonzalez RN [facility] OPERATIVE NOon 03-26-2018 OPERATIVE NO HNO ID: [id number] thor: Rock JenningsService: UrogynecologyAuthor Type: PhysicianType: Operative ReportFiled: 03/26/2018 4:07 PMNote Text:OPERATIVE/PROCEDURE REPORTLOG ID: [id number]/PROCEDURE DATE: 03/26/2018INCISION/PROCEDURE START TIME: 9:43 AMINCISION CLOSE/PROCEDURE END TIME: 11:10 AMSURGEON(S)/PROCEDURALIST(S) AND GREENBELT(S):Surgeon(s) and Role: * Rock Jennings - Primary * Angela Dangelo (Fel) - FellowNo Additional StaffSURGERY/PROCEDURE(S):Rig ht sacrospinous ligament colpopexy, vaginal enterocele repair,posterior colporrhaphy with levator myorrhaphy and perineorrhaphy,cystoscopy, excision of vaginal cystPROCEDURE INDICATION: Shira Shen is a 67 year old who presentedfor consultation regarding symptomatic post-hysterectomy pelvic organprolapse. On POP-Q exam, she was found to have Aa -2, Ba -2-, C -2, Gh5.5, Pb 2, TVL 9, Ap +3, Bp +3, D N/A, consistent with stage 3 prolapse.Her urodynamic study revealed an increased bladder capacity and PVR, withno stress incontinence. ?Given patient's bothersome prolapse symptoms, thedecision was made to proceed with surgical management. ?She was counseledon the indication, risks, benefits and alternatives to the aboveprocedures and all questions were answered. ?Informed consent wasobtained.ANESTHESIA: GeneralFINDINGS:- 0.5x0.5cm vaginal cyst at the left hymenal remnant- Well suspended vaginal apex at the end of the case.- Grossly unremarkable 360 degree survey of the bladder without evidenceof suture, injury or foreign body in the bladder. Efflux appreciated fromureteral openings b/l.- Rectal exam without evidence of suture or injury to the rectum- Vaginal sweep revealed no foreign body at the end of the surgery.SURGERY/PROCEDURE DETAILS:The patient was taken to the operating room with an IV running. She wasthen placed in the dorsal supine position. Informed consent was affirmed.?General anesthesia was administered and found to be adequate. She wasthen repositioned in dorsal lithotomy position with legs in Candy Canestirrups. Careful attention was paid to not hyperextend or hyperflex atthe knees or hips. SCDs were in place as well.??The patient was prepared and draped in the usual sterile manner. A foleycatheter was inserted in the bladder utilizing sterile technique. First,the apex of the vaginal cuff was grasped with an Allis clamp and the cuffwas displaced to the right ischial spine to ensure that the apex wouldreach. The apex was then tagged with a suture of 0-polysorb. Next, theposterior vaginal epithelium was grasped with two Allis clampstransversely along the hymenal remnant and just distal to the apex in themidline of the posterior vaginal wall. The area was injected with a dilutelidocaine with epinephrine solution. A scalpel was?used to create avertical midline incision along the posterior vaginal wall, excising adiamond of epithelium extending from the area just proximal to the hymenalremnant and 1cm down the perineal body. The Allis clamps were thenrepositioned along the edges of the vaginal epithelium and the epitheliumwas sharply dissected off the rectum. An enterocele sac was noted, but notentered. At this point, the fibroareolar tissue lateral to the enterocelewas bluntly dissected to enter the pararectal space. The ischial spinewas palpated and a dorso-medial movement was utilized to further bluntlydissect the tissue overlying the sacrospinous ligament. With the rightmiddle finger palpating the mid-sacrospinous ligament, approximately 2cmlateral to the ischial spine and 0.5cm inferior to the superior margin ofthe ligament was identified. The Popbasic device was utilized to deploy two0-PDS sutures without difficulty, which were tagged to the drapes. Atthis point, a digital rectal exam was performed to ensure no injury to therectum, and the rectum was noted to be intact. Gloves were exchanged.The enterocele sac was reduced with 2 purse-string sutures of 2-0 maxon.Next, the rectovaginal septum and levator ani muscles were plicated usingseveral horizontal mattress sutures of 0 polysorb. The perineal body wasrebuilt with 0-polysorb. This was successful in reducing the rectocele andproviding excellent posterior vaginal wall support. Once the plication wascompleted, the vaginal epithelium was trimmed bilaterally. At this point,the two 0-PDS sacrospinous ligament sutures were passed through thevaginal epithelium at the prior tagged apex location. The dissection wasirrigated copiously and excellent hemostasis was noted. The vaginalepithelium was closed with a running locked suture of 2-0 polysorb. The0-PDS sutures were then tied down successfully suspending the apex towardsthe right sacrospinous ligament.At this point, the ragland catheter was removed and a cystoscopy wasperformed using saline. On cystoscopy, brisk efflux of urine wasappreciated from both ureteral openings. ?Intact bladder mucosa wasappreciated on inspection without injuries or foreign bodies in thebladder. Cystoscopy was then concluded and the ragland catheter wasreinserted.The sutures from the sacrospinous ligament colpopexy were then trimmed.The vaginal cyst was then removed by placing an allis clamp on the cystand elevating it, electrosurgical technique was used to remove the cystand obtain hemostasis. The vagina was irrigated and excellent hemostasiswas achieved. A vaginal sweep was completed by the fellow, and no foreignbodies were present in the vagina at the end of the case prior toinsertion of vaginal packing. Sponge, instrument and needle counts werecorrect times 2. 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]Constipation, unspecified constipation type [K59.00]Incontinence of feces, unspecified fecal incontinence type [R15.9]Vaginal cystPOST-OP/POST-PROCEDURE DIAGNOSIS:Rectocele [N81.6]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]Constipation, unspecified constipation type [K59.00]Incontinence of feces, unspecified fecal incontinence type [R15.9]Vaginal cystEnteroceleESTIMATED BLOOD LOSS: 50 mlsSPECIMENS: NoneIMPLANTABLE DEVICES: NoneDRAINS: NoneCOMPLICATIONS: NonePARTICIPATION IN SURGERY/PROCEDURE: The primary surgeon/proceduralistperforme d the procedure with assistance.SIGNATURE: Angela Dangelo MD PATIENT NAME: Shira ShenDATE: March 26, 2018 : 11:34 AM PAGER/CONTACT #: [phone] [facility] PROGRESSon 03-26-2018 Protein HNO ID: [id number] thor: Angelica (Palbo) DasService: GynecologyAuthor Type: ResidentType: Progress NotesFiled: 03/26/2018 4:42 PMNote Text:WARE TESTER PROGRESS NOTESERVICE DATE: March 26, 2018SERVICE TIME: 3:20 PMPOST-OP DAY # 0ASSESSMENT AND PLAN Shira Shen is a 67 year old female s/p rightsacrospinous colpopexy, ID with levator myorrhaphy and perineorrhaphy, andcystoscopy. Doing well post-operatively.Post-op- Afebrile, VSS, HDS- Pain: Toradol->Ibuprofen, Tylenol, Oxycodone, Dilaudid for BTP- IVF: mIVF x 6h then HLIV- Drains: Ragland in place- Diet: Regular- Antiemetics prn- Bowel regimen: colace, miralax- Pepcid for GI ppx- SCDs for VTE ppx- Encourage IS and ambulationCarotid stenosis-Continue home propranololSicca syndrome-Resume home prednisone on POD#1Bipolar disorder-Continue home ZoloftDispo- Pending post-op milestonesSUBJECTIVE: Patient with no current complaints. Pain well controlledwith current regimen. Denies nausea/vomiting. Tolerating PO. Deniesbowel flatus. Has not ambulated yet. Ragland in place with good UOP. Nochest pain, leg pain, or SOB.OBJECTIVE:Vital Signs:Patient Vitals for the past 24 hrs: BP Temp Temp src Pulse Resp OkV99103/26/18 1426 146/69 36.4 ?C (97.6 ?F) Oral 88 16 95 %03/26/18 1345 134/65 36.2 ?C (97.2 ?F) - 79 16 97 %03/26/18 1315 129/68 - - 75 17 97 %03/26/18 1300 126/69 - - 75 16 98 %03/26/18 1245 131/69 - - 78 15 95 %03/26/18 1230 124/71 - - 80 14 100 %03/26/18 1215 143/75 - - 85 15 97 %03/26/18 1200 144/59 - - 85 15 100 %03/26/18 1145 142/87 - - 79 16 100 %03/26/18 1130 142/87 - - 78 17 100 %03/26/18 1121 134/73 36.2 ?C (97.2 ?F) - 86 17 100 %03/26/18 0821 148/88 36.6 ?C (97.9 ?F) Temporal Art 67 20 98 %Intake/OutputDate 03/25/18 1500 - 03/26/18 0659(Not Admitted) 03/26/18 0700 - 03/27/751738Erlej 3911-7378 5301-0233 24 Hour Total 5826-1717 9504-1312 5035-9269 24Hour TotalINTAKE PO 100 100 PO 100 100 Other 750 750 OR 100 100 PACU ([facility] Only) 650 650 Shift Total 850 850OUTPUT Urine 1050 1050 Tube Output ( Indwelling Urinary Catheter 03/26/18 0940 Ragland 16Fr) 1050 1050 Shift Total 1050 1050Weight (kg)Physical ExamGeneral: A/O, NAD, resting comfortably in bedCardiovascular: RRRPulmonary: CAB, no wheezes/rales/rhonchiAbdomen: soft, non-tender, non-distendedPerineum: no active bleedingExtremities: non-tender, non-edematous, SCDs in placeLABS:2200 labsIMAGING: No new imagingDATA:Diagnostic tests reviewed for today's visit:Most recent labsMost recent imagingCurrent hospital medications:Current Facility-Administered Medications:lactated ringers infusion 100 mL/hr INTRAVENOUS CONTINUOUS Angela C (Fel)Dangelo Last Rate: 100 mL/hr at 03/26/18 1431 100 mL/hr at 03/26/18 23598.9% NaCl 2-10 mL 2-10 mL INTRAVENOUS q 12 H Angela C (Fel) Dangelo 10 mL at03/26/18 1431ondansetron orally disintegrating 4 mg tab(s) (ZOFRAN ODT) 4 mg ORAL q 6 HPRN Angela C (Fel) HickmanOrondansetron (PF) 4 mg injection (ZOFRAN) 4 mg INTRAVENOUS q 6 H PRN Angela C(Fel) HickmandiphenhydrAMINE 25 mg (BENADRYL) 25 mg ORAL q 4 H PRN Angela C (Fel) HickmanOrdiphenhydrAMINE 25 mg injection (BENADRYL) 25 mg INTRAVENOUS q 4 H PRNLisa C (Fel) Hickmandocusate sodium 100 mg cap(s) (COLACE) 100 mg ORAL BID Angela C (Fel)Dangelo 100 mg at 03/26/18 1430polyethylene glycol 3350 17 g packet (MIRALAX, GLYCOLAX) 17 g ORAL DAILYLisa C (Fel) Dangelo 17 g at 03/26/18 1431ketorolac 15 mg injection (TORADOL) 15 mg INTRAVENOUS q 6 H Angela C (Fel)Dangelo 15 mg at 03/26/18 1430Followed by[START ON 03/27/2018] ibuprofen 600 mg tab(s) (MOTRIN) 600 mg ORAL q 6 HLisa C (Fel) HickmanoxyCODONE IR 5-10 mg tab(s) (ROXICODONE) 5-10 mg ORAL q 4 H PRN Angela C(Fel) HickmanHYDROmorphone 0.2 mg injection (DILAUDID) 0.2 mg INTRAVENOUS q 2 H PRNLisa C (Fel) Hickmanacetaminophen 650 mg tab(s) (TYLENOL) 650 mg ORAL q 6 H Angela C (Fel)Dangelo 650 mg at 03/26/18 1430SIGNATURE: Angelica De Leon MD PATIENT NAME: Shira ShenDATE: March 26, 2018 : 3:20 PM PAGER/CONTACT #: [phone] [facility] NURSING PROGon 03-19-2018 NURSING PROG HNO ID: [id number] thor: Precious Hdez (Rn) Josemanuel, RNService: (none)Author Type: Registered NurseType: Nursing Progress NoteFiled: 03/19/2018 11:04 AMNote Text:PACC Nurse Progress NoteHistory AND Physical:PACC Visit Date: 03/14/18Original HANDP Date: N/AED visit Date: N/AOutside HANDP Scanned Date: N/ALabs Within Last 6 Months:CBC: Date 12/06/17BMP/CMP: Date 12/06/17UA: Date 03/18/18 acceptable labsImaging Within Last 12 Months:N/ACardiac Testing:EKG in last 12 Months: Yes: Date: 03/14/18, Comment: in epicLast Menstrual Period:LMP Date: N/APostmenopausal >1yr: Yes,S/P Hysterectomy: YesBMI Percentile (PEDS):33Risk Assessment:N/AAnesthesia Review:N/ANarrative:tachyPre- op Considerations:N/AChart Check:Lokesh Abernathy RNJuly 2017 11:02 AM [facility] HOSPon 01-01-2018 HOSP Patient:Shira Shen LMRN: Height:5' 4(1.626 m)Weight:192 lb (87.091 kg)Outpatient Medications as of 03/26/18:predniSONE (DELTASONE) 5 mg tabletpropranolol (INDERAL) 20 mg tabletacetaminophen (TYLENOL) 325 mg tabletdiphenhydrAMINE (BENADRYL) 25 mg capsuleAscorbic Acid (VITAMIN C) 500 mg cpERomeprazole (PRILOSEC) 20 mg capsuleoxybutynin (DITROPAN) 5 mg tabletcolestipol (COLESTID) 1 gram tabletcholecalciferol (VITAMIN D) 1,000 unit tab tabletLACTOBACILLUS ACIDOPHILUS (PROBIOTIC ACIDOPHILUS ORAL)sertraline (ZOLOFT) 50 mg tabletmultivitamins(MULTIPLE VITAMIN TAB)Admission/Clinic Administered Medications as of 03/26/18:lidocaine 10 mg/mL (1 %) 1-2 mg injection (XYLOCAINE)lactated ringers infusionclindamycin 600 mg in D5W 50 mL (CLEOCIN)aztreonam iv piggyback 1 g in dextrose (iso-osmotic) 50 mL (AZACTAM)Problem List:Bipolar I disorder (HCC) [F31.9]Tuberculin test reaction [795.5]Panic disorder without agoraphobia [F41.0]Urinary frequency [R35.0]Hyperactivity of bladder [N31.8]Impaired fasting glucose [R73.01]Hyperlipidemia [E78.5]Carotid stenosis, bilateral [I65.23]Sicca syndrome (HCC) [M35.00]Acid reflux [K21.9]Tachycardia [R00.0]Rectocele [N81.6]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 Set up with cpap titration.Flavia Ramirez 03/26/2018 8:43 AM SignedUnable to reach patient, left detailed VM letting her know home study did showsleep apnea and she will need to be set up to do cpap titration and this messagewill be forwarded to our schedulers to help her get this set up. Please call andhelp patient schedule this.Flavia Staples Psr 03/26/2018 9:[address] attempt/left message to call back to schedule titration studyProgress Notes ([facility]):Rock Jennings MD 03/18/2018 11:13 AM Mauricio Shen presents for pre-op consent and urodynamics follow up.Date of Surgery: 03/26/2018Procedure: COLPOPEXY VAGINAL EXTRA-PERITONEAL, ANTERIOR COLPORRHAPHY REPAIRCYSTOCELE WITH OR W/O REPAIR URETHROCELE INCLUDING CYSTOURETHROSCOPY WHENPERFORMED, POSTERIOR COLPORRHAPHY W/ REPAIR RECTOCELE AND PERINEORRHAPHY,CYSTOSCOPYLast visit 11/14/2017:IMPRESSION:Shira Shen is a 67 year old female with Urge Urinary Incontinence, PelvicOrgan Prolapse, constipation, and fecal incontinencePLAN:1- Pelvic organ prolapse-POP diagnosis and management discussed using diagrams. Reviewed options-expectant management, PT, pessary, surgery.-Pt desires surgical repair of prolapse-Needs preop modified UDS-Surgical plan: sacrospinous vaginal vault suspension, posterior colporrhaphyand perineorrhaphy, cytoscopy, possible MUS2- Overactive bladder / UUI-Continue oxybutyninKira Meliza, RNShira Shen is a 67 year old female who presents for preoperative discussion.History:Shira reports a worsening vaginal bulge that has been present for many years.She has not had any treatment. As the bulge has worsened, she notes that it isenlarged when she needs to have a bowel movement. This is worse withconstipation. Occasionally she does leak stool. She does not splint to have aBM.?She denies leakage of urine with cough, sneeze but she does leak with an urge tovoid. She has a history of overactive bladder and is has been on oxybutynin x 10years. She started at a high dose which caused dry eyes, she was decreased to5mg which does not cause side effects and is working to help her urgency. Shedoes have urinary hesitancy.Physical exam:Aa = -2.0 Ba = -2.0 C = -2gh = 5.5 pb = 2 tvl = 9Ap = +3.0 Bp = +3.0 D = N/APatient is not sexually active.Modified UDS performed today:Voided 823mL, fluctuating patternPVR 250Negative CSTConsent discussion:Surgical risks were discussed. These include, but are not limited to: bleedingand need for transfusion, infection, blood clots in the legs or lungs, damage tosurrounding organs, need for repeat operation due to prolapse recurrence,dyspareunia, urinary retention and need for catheterization, conversion toabdominal procedure, mesh erosion, pelvic pain. OR personnel discussed.Patient understands risks and desires to proceed, consent signed.Anesthesia history:No reactionsPertinent surgical history:Total hysterectomy with bilateral oophorectomy 1986 for recurrent ovarian cystsand heavy vaginal bleedingPain control:Tylenol with codeine caused epigastric painNo reactions to other narcoticsCan tolerate tylenolOther concerns:PCN causes itching and rashLOS:1 nightSurgical plan:Sacrospinous vaginal vault suspension, posterior colporrhaphy andperineorrhaphy, cytoscopyNO slNima Jennings MDchinmay 2017 10:56 AMPrevious Ingrid Haider RN, RN 03/18/2018 9:32 AM SignedIntake information documented in the prior visit with Urodynamics today.Brittney Haider RN [facility] Stool gastrointestinal hemog lobin detection by immunologic method Lower GI hemoglobin IA Ql (Stl) [facility] Work Phone: Vital Signs Date Time Vital Sign Value Performing Clinician Facility 11-20-2023 09:38-0400 Body height 162.[address] Nimisha Olvera Work Phone: [facility] 11-20-2023 09:38-0400 Body mass index (BMI) [Ratio] 32.1 kg/m2 Dr. Nimisha Olvera Work Phone: [facility] 11-20-2023 09:38-0400 Body temperature 97.1 [degF] Dr. Nimisha Olvera Work Phone: [facility] 11-20-2023 09:38-0400 Body weight 84.[address] Nimisha Olvera Work Phone: [facility] 11-20-2023 09:38-0400 Diastolic blood pressure 80 mm[Hg] Dr. Nimisha Olvera Work Phone: [facility] 11-20-2023 09:38-0400 Heart rate 72 /min Dr. Nimisha Olvera Work Phone: [facility] 11-20-2023 09:38-0400 Respiratory rate 16 /min Dr. Nimisha Olvera Work Phone: [facility] 11-20-2023 09:38-0400 SaO2% (BldA) [Mass fraction] 97 % Dr. Nimisha Olvera Work Phone: [facility] 11-20-2023 09:38-0400 Systolic blood pressure 118 mm[Hg] Dr. Nimisha Olvera Work Phone: [facility] 06-17-2023 15:03-0400 Body height 162.[address] Nimisha Olvera Work Phone: [facility] 06-17-2023 15:03-0400 Body mass index (BMI) [Ratio] 33 kg/m2 Dr. Nimisha Olvera Work Phone: [facility] 06-17-2023 15:03-0400 Body weight 87.[address] Nimisha Olvera Work Phone: [facility] 06-17-2023 15:03-0400 Diastolic blood pressure 74 mm[Hg] Dr. Nimisha Olvera Work Phone: [facility] 06-17-2023 15:03-0400 Heart rate 80 /min Dr. Nimisha Olvera Work Phone: [facility] 06-17-2023 15:03-0400 Respiratory rate 17 /min Dr. Nimisha Olvera Work Phone: [facility] 06-17-2023 15:03-0400 SaO2% (BldA) [Mass fraction] 97 % Dr. Nimisha Olvera Work Phone: [facility] 06-17-2023 15:03-0400 Systolic blood pressure 165 mm[Hg] Dr. Nimisha Olvera Work Phone: [facility] 05-21-2023 10:40-0400 Diastolic blood pressure 96 mm[Hg] Dr. Nimisha Olvera Work Phone: [facility] 05-21-2023 10:40-0400 Systolic blood pressure 156 mm[Hg] Dr. Nimihsa Olvera Work Phone: [facility] 05-21-2023 09:18-0400 Body height 162.[address] Nimisha Olvera Work Phone: [facility] 05-21-2023 09:18-0400 Body mass index (BMI) [Ratio] 33.1 kg/m2 Dr. Nimisha Olvera Work Phone: [facility] 05-21-2023 09:18-0400 Body temperature 98.7 [degF] Dr. Nimisha Olvera Work Phone: [facility] 05-21-2023 09:18-0400 Body weight 87.[address] Nimisha Olvera Work Phone: [facility] 05-21-2023 09:18-0400 Heart rate 69 /min Dr. Nimisha Olvera Work Phone: [facility] 05-21-2023 09:18-0400 Respiratory rate 18 /min Dr. Nimisha Olvera Work Phone: [facility] 05-21-2023 09:18-0400 SaO2% (BldA) [Mass fraction] 99 % Dr. Nimisha Olvera Work Phone: [facility] 10-25-2022 08:43-0500 Body temperature 99.2 [degF] Dr. Eulalio Sykes Work Phone: [facility] 10-25-2022 08:43-0500 Diastolic blood pressure 72 mm[Hg] Dr. Eulalio Sykes Work Phone: [facility] 10-25-2022 08:43-0500 Heart rate 73 /min Dr. Eulalio Sykes Work Phone: 0(812)423-168160 [place] [address] 10-25-2022 08:43-0500 Respiratory rate 18 /min Dr. Eulalio Sykes Work Phone: 2(736)147-685960 [place] [address] 10-25-2022 08:43-0500 SaO2% (BldA) [Mass fraction] 97 % Dr. Eulalio Sykes Work Phone: 1(266)455-500560 [place] [address] 10-25-2022 08:43-0500 Systolic blood pressure 142 mm[Hg] Dr. Eulalio Sykes Work Phone: 7(631)826-328960 [place] [address] 10-25-2022 06:46-0500 Body height 162.[address] Eulalio Sykes Work Phone: 4(946)330-069060 [place] [address] 10-25-2022 06:46-0500 Body mass index (BMI) [Ratio] 32.1 kg/m2 Dr. Eulalio Sykes Work Phone: 2(795)652-557460 [place] [address] 10-25-2022 06:46-0500 Body weight [address] Eulalio Sykes Work Phone: 4(482)080-116460 [place] [address] 10-04-2022 13:40-0500 Body temperature 98.2 [degF] Dr. Eulalio Sykes Work Phone: 3(439)403-043260 [place] [address] 10-04-2022 13:40-0500 Diastolic blood pressure 76 mm[Hg] Dr. Eulalio Sykes Work Phone: 2(317)630-977860 [place] [address] 10-04-2022 13:40-0500 Heart rate 63 /min Dr. Eulalio Sykes Work Phone: 0(517)394-406060 [place] [address] 10-04-2022 13:40-0500 Respiratory rate 16 /min Dr. Eulalio Sykes Work Phone: 7(084)894-323460 [place] [address] 10-04-2022 13:40-0500 SaO2% (BldA) [Mass fraction] 98 % Dr. Eulalio Sykes Work Phone: 3(133)768-434560 [place] [address] 10-04-2022 13:40-0500 Systolic blood pressure 130 mm[Hg] Dr. Eulalio Sykes Work Phone: 7(132)581-377432 [place] [address] 10-04-2022 11:11-0500 Body mass index (BMI) [Ratio] 31.8 kg/m2 Dr. Eulalio Sykes Work Phone: 4(562)580-523460 [place] [address] 10-04-2022 11:11-0500 Body weight [address] Eulalio Sykes Work Phone: 6(861)013-595060 [place] [address] 08-01-2022 11:02-0500 Body height 162.[address] Eulalio Sykes Work Phone: 2(329)961-601660 [place] [address] Work Phone: 08-01-2022 11:02-0500 Body mass index (BMI) [Ratio] 32.5 kg/m2 Dr. Eulalio Sykes Work Phone: 7(913)624-244360 [place] [address] 08-01-2022 11:02-0500 Body temperature 97.8 [degF] Dr. Eulalio Sykes Work Phone: 2(436)124-852060 [place] [address] 08-01-2022 11:02-0500 Body weight 86.[address] Eulalio Sykes Work Phone: 0(903)019-432160 [place] [address] 08-01-2022 11:02-0500 Diastolic blood pressure 84 mm[Hg] Dr. Eulalio Sykes Work Phone: 0(499)009-797860 [place] [address] 08-01-2022 11:02-0500 Heart rate 69 /min Dr. Eulalio Sykes Work Phone: 3(937)513-633760 [place] [address] 08-01-2022 11:02-0500 Respiratory rate 14 /min Dr. Eulalio Sykes Work Phone: 0(423)147-011660 [place] [address] 08-01-2022 11:02-0500 SaO2% (BldA) [Mass fraction] 97 % Dr. Eulalio Sykes Work Phone: 1(897)298-913760 [place] [address] 08-01-2022 11:02-0500 Systolic blood pressure 130 mm[Hg] Dr. Eulalio Sykes Work Phone: 9(868)031-876060 [place] [address] 06-26-2022 14:08-0400 Body mass index (BMI) [Ratio] 32.3 kg/m2 Dr. Eulalio Sykes Work Phone: [facility] Work Phone: 06-26-2022 14:08-0400 Body temperature 96.1 [degF] Dr. Eulalio Sykes Work Phone: [facility] Work Phone: 06-26-2022 14:08-0400 Body weight 85.[address] Eulalio Sykes Work Phone: [facility] Work Phone: 06-26-2022 14:08-0400 Diastolic blood pressure 73 mm[Hg] Dr. Eulalio Sykes Work Phone: [facility] Work Phone: 06-26-2022 14:08-0400 Heart rate 58 /min Dr. Eulalio Sykes Work Phone: [facility] Work Phone: 06-26-2022 14:08-0400 Respiratory rate 18 /min Dr. Eulalio Sykes Work Phone: [facility] Work Phone: 06-26-2022 14:08-0400 SaO2% (BldA) [Mass fraction] 97 % Dr. Eulalio Sykes Work Phone: [facility] Work Phone: 06-26-2022 14:08-0400 Systolic blood pressure 128 mm[Hg] Dr. Eulalio Sykes Work Phone: [facility] Work Phone: 05-24-2022 10:14-0400 Body height 162.6 cm Segundo Roberts DO Work Phone: [facility] 05-24-2022 10:14-0400 Body temperature 97.5 [degF] Segundo Roberts DO Work Phone: [facility] 05-24-2022 10:14-0400 Body weight 85.73 kg Segundo Roberts DO Work Phone: [facility] 05-24-2022 10:14-0400 Diastolic blood pressure 60 mm[Hg] Segundo Radha DO Work Phone: [facility] 05-24-2022 10:14-0400 Heart rate 62 /min Segundo Roberts DO Work Phone: [facility] 05-24-2022 10:14-0400 Respiratory rate 13 /min Segundo Roberts DO Work Phone: [facility] 05-24-2022 10:14-0400 SaO2% (BldA) [Mass fraction] 99 % Segundo Roberts DO Work Phone: [facility] 05-24-2022 10:14-0400 Systolic blood pressure 125 mm[Hg] Segundo Wallacelazaro DO Work Phone: [facility] 05-17-2022 16:27-0400 Body height 162.[address] Eulalio Sykes Work Phone: [facility] Work Phone: 05-17-2022 16:27-0400 Body mass index (BMI) [Ratio] 32.4 kg/m2 Dr. Eulalio Sykes Work Phone: [facility] Work Phone: 05-17-2022 16:27-0400 Body temperature 98.3 [degF] Dr. Eulalio Sykes Work Phone: [facility] Work Phone: 05-17-2022 16:27-0400 Body weight 85.[address] Eulalio Sykes Work Phone: [facility] Work Phone: 05-17-2022 16:27-0400 Diastolic blood pressure 78 mm[Hg] Dr. Eulalio Sykes Work Phone: [facility] Work Phone: 05-17-2022 16:27-0400 Heart rate 61 /min Dr. Eulalio Sykes Work Phone: [facility] Work Phone: 05-17-2022 16:27-0400 Respiratory rate 14 /min Dr. Eulalio Sykes Work Phone: [facility] Work Phone: 05-17-2022 16:27-0400 SaO2% (BldA) [Mass fraction] 97 % Dr. Eulalio Sykes Work Phone: [facility] Work Phone: 05-17-2022 16:27-0400 Systolic blood pressure 134 mm[Hg] Dr. Eulalio Sykes Work Phone: [facility] Work Phone: 05-04-2022 14:26-0400 Body weight 86.64 kg Eulalio Sykes MD Work Phone: [facility] 05-04-2022 14:26-0400 Diastolic blood pressure 72 mm[Hg] Eulalio Sykes MD Work Phone: [facility] 05-04-2022 14:26-0400 Heart rate 64 /min Eulalio Sykes MD Work Phone: [facility] 05-04-2022 14:26-0400 Systolic blood pressure 132 mm[Hg] Eulalio Sykes MD Work Phone: [facility] 05-03-2022 09:56-0400 Body mass index (BMI) [Ratio] 32.5 kg/m2 Dr. Eulalio Sykes Work Phone: [facility] Work Phone: 05-03-2022 09:56-0400 Body temperature 97.5 [degF] Dr. Eulalio Sykes Work Phone: [facility] Work Phone: 05-03-2022 09:56-0400 Body weight 86.[address] Eulalio Sykes Work Phone: [facility] Work Phone: 05-03-2022 09:56-0400 Diastolic blood pressure 80 mm[Hg] Dr. Eulalio Sykes Work Phone: [facility] Work Phone: 05-03-2022 09:56-0400 Heart rate 66 /min Dr. Eulalio Sykes Work Phone: [facility] Work Phone: 05-03-2022 09:56-0400 Respiratory rate 16 /min Dr. Eulalio Sykes Work Phone: [facility] Work Phone: 05-03-2022 09:56-0400 SaO2% (BldA) [Mass fraction] 97 % Dr. Eulalio Sykes Work Phone: [facility] Work Phone: 05-03-2022 09:56-0400 Systolic blood pressure 138 mm[Hg] Dr. Eulalio Sykes Work Phone: [facility] Work Phone: 04-23-2022 09:35-0400 Body mass index (BMI) [Ratio] 32.4 kg/m2 Dr. Eulalio Sykes Work Phone: [facility] Work Phone: 04-23-2022 09:35-0400 Body temperature 99.6 [degF] Dr. Eulalio Sykes Work Phone: [facility] Work Phone: 04-23-2022 09:35-0400 Body weight 85.[address] Eulalio Sykes Work Phone: [facility] Work Phone: 04-23-2022 09:35-0400 Diastolic blood pressure 64 mm[Hg] Dr. Eulalio Sykes Work Phone: [facility] Work Phone: 04-23-2022 09:35-0400 Heart rate 76 /min Dr. Eulalio Sykes Work Phone: [facility] Work Phone: 04-23-2022 09:35-0400 Respiratory rate 16 /min Dr. Eulalio Sykes Work Phone: [facility] Work Phone: 04-23-2022 09:35-0400 SaO2% (BldA) [Mass fraction] 96 % Dr. Eulalio Sykes Work Phone: [facility] Work Phone: 04-23-2022 09:35-0400 Systolic blood pressure 122 mm[Hg] Dr. Eulalio Sykes Work Phone: [facility] Work Phone: 04-22-2022 12:39-0400 Body temperature 97.8 [degF] Dr. Eulalio Sykes Work Phone: [facility] Work Phone: 04-22-2022 12:39-0400 Diastolic blood pressure 62 mm[Hg] Dr. Eulalio Sykes Work Phone: [facility] Work Phone: 04-22-2022 12:39-0400 Heart rate 66 /min Dr. Eulalio Sykes Work Phone: [facility] Work Phone: 04-22-2022 12:39-0400 Respiratory rate 18 /min Dr. Eulalio Sykes Work Phone: [facility] Work Phone: 04-22-2022 12:39-0400 SaO2% (BldA) [Mass fraction] 98 % Dr. Eulalio Sykes Work Phone: [facility] Work Phone: 04-22-2022 12:39-0400 Systolic blood pressure 132 mm[Hg] Dr. Eulalio Sykes Work Phone: [facility] Work Phone: 04-22-2022 10:12-0400 Body mass index (BMI) [Ratio] 32.9 kg/m2 Dr. Eulalio Sykes Work Phone: [facility] Work Phone: 04-19-2022 13:57-0400 Body height 162.[address] Eulalio Sykes Work Phone: [facility] Work Phone: 04-19-2022 13:57-0400 Body weight 87.[address] Eulalio Sykes Work Phone: [facility] Work Phone: 04-17-2022 21:33-0400 Inhaled oxygen concentration 21 % Dr. Eulalio Sykes Work Phone: [facility] Work Phone: 04-17-2022 21:33-0400 Inhaled oxygen flow rate 0 L/min Dr. Eulalio Sykes Work Phone: [facility] Work Phone: 03-29-2022 13:03-0400 Diastolic blood pressure 90 mm[Hg] [facility] Work Phone: 03-29-2022 13:03-0400 Heart rate 78 /min [facility] Work Phone: 03-29-2022 13:03-0400 Respiratory rate 16 /min [facility] Work Phone: 03-29-2022 13:03-0400 SaO2% (BldA) [Mass fraction] 97 % [facility] Work Phone: 03-29-2022 13:03-0400 Systolic blood pressure 149 mm[Hg] [facility] Work Phone: 03-29-2022 09:01-0400 Body height 162.56 cm [facility] Work Phone: 03-29-2022 09:01-0400 Body mass index (BMI) [Ratio] 33.5 kg/m2 [facility] Work Phone: 03-29-2022 09:01-0400 Body weight 88.6 kg [facility] Work Phone: 03-29-2022 08:59-0400 Body temperature 96.2 [degF] [facility] Work Phone: 03-28-2022 10:06-0400 Diastolic blood pressure 94 mm[Hg] Eulalio Sykes MD Work Phone: [facility] 03-28-2022 10:06-0400 Systolic blood pressure 146 mm[Hg] Eulalio Sykes MD Work Phone: [facility] 03-28-2022 10:04-0400 Body weight 87.27 kg Eulalio Sykes MD Work Phone: [facility] 03-28-2022 10:04-0400 Heart rate 82 /min Eulalio Sykes MD Work Phone: [facility] 03-28-2022 10:04-0400 Respiratory rate 16 /min Eulalio Sykes MD Work Phone: [facility] 02-01-2022 13:05-0400 Body height 162.6 cm Jonathan WEATHERSC Work Phone: [facility] 02-01-2022 13:05-0400 Body weight 87.77 kg Jonathan ROBIN-C Work Phone: [facility] 02-01-2022 13:05-0400 Diastolic blood pressure 73 mm[Hg] Jonathan ROBIN-C Work Phone: [facility] 02-01-2022 13:05-0400 Heart rate 66 /min Jonathan ROBIN-C Work Phone: [facility] 02-01-2022 13:05-0400 SaO2% (BldA) [Mass fraction] 100 % Jonathan ROBIN-C Work Phone: [facility] 02-01-2022 13:05-0400 Systolic blood pressure 132 mm[Hg] Jonathan ROBIN-C Work Phone: [facility] 12-11-2021 10:38-0400 Diastolic blood pressure 76 mm[Hg] Mi Nurse Work Phone: [facility] 12-11-2021 10:38-0400 Heart rate 77 /min Mi Nurse Work Phone: [facility] 12-11-2021 10:38-0400 Systolic blood pressure 132 mm[Hg] Mi Nurse Work Phone: [facility] Encounters Encounter Date Encounter Type Care Provider Facility Start: 03-02-2025 ambulatory [facility] Facility :[facility] Start: 03-01-2025 Encounter for other preprocedural examination [facility] Start: 02-23-2025 End: 02-23-2025 ambulatory BIM NURSE Facility:[facility] Start: 02-23-2025 End: 02-23-2025 ambulatory Dain [place] Facility:[facility] Start: 02-16-2025 End: 02-16-2025 ambulatory Darryl Villeda Facility:[facility] Start: 02-11-2025 End: 02-11-2025 ambulatory Geovanny ROBIN Facility:[facility] Start: 02-10-2025 End: 02-10-2025 ambulatory Larissa Fonseca Facility:[facility] Start: 01-20-2025 End: 01-20-2025 ambulatory Dain Blanchard Facility:[facility] Start: 01-15-2025 End: 01-15-2025 ambulatory Geovanny ROBIN Facility:[facility] Start: 12-28-2024 ambulatory Nimisha Wade Facility :[facility] Start: 12-23-2024 End: 12-23-2024 [address]ulatory [place] Facility:[facility] Start: 12-09-2024 ambulatory Leilani Denise [facility] Start: 12-09-2024 End: 12-09-2024 ambulatory Nimisha Wade Facility:[facility] Start: 11-25-2024 End: 11-25-2024 ambulatory Nimisha Brightwood Facility:[facility] Start: 10-07-2024 End: 10-07-2024 ambulatory Nimisha Wade Facility:[facility] Start: 08-19-2024 End: 11-30-2024 ambulatory Petra Valenciao Facility:[facility] Start: 08-19-2024 End: 08-19-2024 ambulatory Nimisha Wade Facility:[facility] Start: 08-12-2024 End: 08-12-2024 ambulatory Larissamilena Fonseca Facility:[facility] Start: 06-16-2024 ambulatory Petra Valenciao Facility: [facility] Start: 06-01-2024 End: 06-01-2024 ambulatory Perla Elyov Facility:[facility] Start: 05-21-2024 ambulatory Blayne Friend Facility :[facility] Start: 05-21-2024 End: 05-21-2024 ambulatory Blayne Friend Facility:[facility] Start: 05-19-2024 End: 05-19-2024 ambulatory Petra Valenciao Facility:[facility] Start: 05-14-2024 End: 05-14-2024 ambulatory Larissa Fonseca Facility:[facility] Start: 05-05-2024 ambulatory Darryl Villeda Facility:[facility] Start: 05-05-2024 End: 05-05-2024 ambulatory Geovanny Taylor PA Facility:[facility] Start: 04-28-2024 End: 04-28-2024 ambulatory Perla Mclean Facility:[facility] Start: 04-28-2024 End: 04-28-2024 ambulatory Perla Mclean Facility:[facility] Start: 04-16-2024 End: 04-16-2024 ambulatory Geovanny Taylor PA Facility:[facility] Start: 04-15-2024 End: 04-15-2024 ambulatory Geovanny Taylor PA Facility:[facility] Start: 04-09-2024 ambulatory Barry Webb Facility:[facility] Start: 04-09-2024 End: 04-09-2024 ambulatory Geovanny Cardenast PA Facility:[facility] Start: 04-09-2024 End: 04-09-2024 ambulatory Geovanny Taylor PA Facility:[facility] Start: 03-30-2024 End: 03-30-2024 Emergency department patient visit Nimisha Olvera Facility:[facility] Start: 11-20-2023 End: 11-20-[address] Nimisha Olvera Work Phone: [facility] Work Phone: Start: 11-20-2023 End: 11-20-[address] Nimisha Olvera Work Phone: [facility]-Radiology, [facility] Work Phone: Start: 11-20-2023 End: 11-20-[address] Nimisha Olvera Work Phone: [facility] Work Phone: Start: 07-30-2023 End: 07-30-[address] Nimisha Olvera Work Phone: [facility] Work Phone: Start: 07-30-2023 End: 07-30-[address] Nimisha Olvera Work Phone: [facility]-Physical Therapy Work Phone: Start: 06-17-2023 End: 06-17-[address] Nimisha Olvera Work Phone: [facility] Work Phone: Start: 05-23-[address] Loan [facility] Start: 05-22-2023 End: 05-22-[address] Nimisha Olvera Work Phone: [facility] Work Phone: Start: 05-22-2023 End: 05-22-[address] Nimisha Olvera Work Phone: [facility]-Laboratory, [facility] Start: 05-21-2023 End: 05-21-[address] Nimisha Olvera Work Phone: [facility] Work Phone: Start: 05-21-2023 End: 05-21-[address] Nimisha Olvera Work Phone: [facility]-Laboratory, Specimen Work Phone: Start: 05-21-2023 End: 05-21-[address] Nimisha Olvera Work Phone: [facility] Internal Medicine Work Phone: Start: 03-06-2023 ambulatory Katherine Dayana Almanzar MA [facility] [place] Comment on above: Population Health Na vigation Outreach ([employer]aps ) Start: 02-12-2023 ambulatory Eulalio Sykes MD Work Phone: Internal [facility] [place] Start: 01-30-2023 [facility]ulatory [facility] [place] Comment on above: Population Health Na vigation Outreach (hcc) Start: 12-11-2022 ambulatory Eulalio Sykes MD Work Phone: [facility] [place] Start: 11-08-2022 ambulatory [facility] [place] Comment on above: Population Health Na vigation Outreach (HCC) Start: 10-25-2022 End: 10-25-2022 Admission to same day surgery center Dr. Eulalio Sykes Work Phone: [facility]-Surgical Day Care Start: 10-25-2022 End: 10-25-[address] Eulalio Sykes Work Phone: [facility] Work Phone: Start: 10-04-2022 End: 10-04-2022 Admission to same day surgery center Dr. Eulalio Sykes Work Phone: [facility]-Surgical Day Care Start: 08-03-2022 End: 08-03-[address] Eulalio Sykes Work Phone: [facility] Work Phone: Start: 08-03-2022 End: 08-03-[address] Eulalio Sykes Work Phone: [facility], [place] Start: 08-01-2022 End: 08-01-[address] Eulalio Sykes Work Phone: [facility] Internal Medicine Start: 07-10-2022 End: 07-10-[address] Eulalio Sykes Work Phone: [facility]-Sleep Lab Start: 06-26-2022 End: 06-26-[address] Eulalio Sykes Work Phone: [facility]-Pulmonary Medicine [facility] Start: 06-18-2022 End: 06-18-[address] Eulalio Sykes Work Phone: [facility] Work Phone: Start: 06-18-2022 End: 06-18-[address] Eulalio Sykes Work Phone: [facility]-Sleep Lab Start: 05-29-2022 End: 05-29-[address] Eulalio Sykes Work Phone: [facility] Work Phone: Start: 05-29-2022 End: 05-29-[address] 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 Eulalio Sykes Work Phone: [facility] Work Phone: Start: 05-18-2022 End: 05-18-[address] Eulalio Sykes Work Phone: [facility]-Sleep Lab Start: 05-17-2022 End: 05-17-[address] Eulalio Sykes Work Phone: [facility] Internal Medicine Start: 05-14-2022 End: 05-14-[address] Eulalio Sykes Work Phone: [facility] Work Phone: Start: 05-14-2022 End: 05-14-[address] [facility]al[facility] Sykes [facility] Start: 05-14-[address] 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 Eulalio Sykes Work Phone: [facility] Internal Medicine Start: 04-26-2022 Telephone encounter Eulalio Sykes MD Work Phone: [facility] Comment on above: Hospital F/U Start: 04-23-2022 End: 04-23-[address] Eulalio Sykes [facility] Start: 04-21-2022 Non-patient / Non-visit Dr. Charles Sykes Work Phone: [facility] Start: 04-19-2022 Non-patient / Non-visit Dr. Charles Sykes Work Phone: [facility] Start: 04-18-2022 Telephone encounter Eulalio Sykes MD Work Phone: [facility] Comment on above: Release Of Medical R ecords Start: 04-17-2022 Non-patient / Non-visit Dr. Charles Sykes Work Phone: [facility] Start: 04-16-2022 Non-patient / Non-visit Dr. Charles Sykes Work Phone: [facility] Start: 04-14-2022 Non-patient / Non-visit Dr. Charles Sykes Work Phone: [facility] Start: 04-11-2022 Non-patient / Non-visit Dr. Charles Sykes Work Phone: [facility] Start: 04-09-2022 Non-patient / Non-visit Dr. Charles Sykes Work Phone: [facility] Start: 04-05-2022 Non-patient / Non-visit Dr. Charles Sykes Work Phone: [facility] Start: 04-04-2022 Non-patient / Non-visit Dr. Charles Sykes Work Phone: [facility] Start: 04-03-2022 End: 04-22-2022 Evaluation and management of inpatient Dr. Eulalio Sykes Work Phone: [facility]-Rehab Unit Start: 03-30-2022 ambulatory Deja Hurtado MD Work Phone: Neurosurgery Comment on above: Cerebrovascular acci dent (CVA), unspecified mechanism (HCC) (Primary Dx) Start: 03-30-2022 Telemedicine consult ation with patient Deja Hurtado MD Work Phone: [facility] Start: 03-30-2022 Telephone encounter Eulalio Sykes MD Work Phone: [facility] [place] Comment on above: Patient Question; Sharda ordoñez Update Start: 03-29-2022 End: 03-29-2022 Emergency department patient visit [facility]-Emergency Department Start: 03-28-2022 End: 03-28-2022 ambulatory EULALIO SYKES Facility:[facility] Start: 03-28-2022 End: 03-28-2022 Patient encounter procedure Eulalio Sykes MD Work Phone: [facility] Comment on above: Impaired fasting glu cose (Primary Dx); Cervical radiculopathy; DDD (degenerative disc disease), cervical; Spinal stenosis in cervical region; Sicca syndrome (HCC); Panic disorder without agoraphobia; Bilateral carotid artery stenosis; Hyperlipidemia, unspecified hyperlipidemia type; JANE (obstructive sleep apnea); Urge incontinence; Screening breast examination; Headache, unspecified headache type; Primary hypertension Start: 02-01-2022 End: 02-01-2022 Patient encounter procedure Jonathan Mendoza PA-C Work Phone: [facility] [place] Comment on above: Cervical radiculopat hy (Primary Dx); Spinal stenosis in cervical region; Numbness and tingling in left hand Start: 01-18-2022 Refill Eulalio Sykes MD Work Phone: [facility] Comment on above: Refill Request Start: 01-04-2022 E-mail encounter christy m caregiver Jonathan Mendoza PA-C Work Phone: [facility] Start: 01-04-2022 Follow-up encounter Jonathan norton PA-C Work Phone: [facility] Comment on above: EMG results and inje ction follow-up Start: 01-01-2022 End: 01-01-2022 ambulatory Emg 850) Neurology Start: 01-01-2022 End: 01-01-2022 Patient encounter procedure Emg 1 Neur [place] (Max Weight: 850) [facility] Start: 12-21-2021 Orders Only Jewel Pinedo MD Work Phone: Pain Management Comment on above: Neck pain on left si de (Primary Dx); Cervical radiculopathy; Numbness and tingling in left hand; Spinal stenosis in cervical region Start: 12-14-2021 Telephone encounter Jonathan norton PA-C Work Phone: Neurology Comment on above: Patient Update (Pain ) Start: 12-11-2021 Telephone encounter Eulalio Sykes MD Work Phone: [facility] Comment on above: Blood Pressure Check Start: 12-11-2021 End: 12-11-2021 Nursing evaluation of patient and report Mi Nurse Work Phone: [facility] Comment on above: Elevated blood press ure reading without diagnosis of hypertension (Primary Dx) Start: 10-06-2021 End: 10-06-2021 Subsequent hospital visit by physician [facility]ri [facility] (I-Stat/1.5t) Work Phone: Radiology Comment on above: Canceled (Pt cx: Hieu ointment Conflict) Start: 10-05-2021 End: 10-05-2021 Subsequent hospital visit by physician [facility] (I-Stat/1.5t) Work Phone: Radiology Comment on above: Canceled (Pt cx: Res cheduled) Start: 08-31-2021 End: 08-31-2021 Subsequent hospital visit by physician [facility] Work Phone: Radiology Comment on above: Acute pain of left s prabhakar [M25.512] Start: 03-31-2018 End: 04-01-2018 Patient encounter LENORA HODGES Facility:[facility] Start: 03-31-2018 End: 03-31-2018 Patient encounter ROCK JENNINGS Facility:[facility] Start: 03-28-2018 End: 03-28-2018 Patient encounter ROCK JENNINGS Facility:[facility] Start: 03-26-2018 End: 03-27-2018 Patient encounter ROCK JENNINGS [facility] Start: 05-19-2009 End: 12-24-2014 Patient encounter status Xr [facility] Work Phone: [facility] Procedures Date Procedure Procedure Detail Performing Clinician Start: 11-20-2023 Plain x-ray of pelvi s and lower extremity Dr. Nimisha Olvera Work Phone: Start: 05-21-[address] Loan Olvera Work Phone: Start: 10-25-2022 Axonics Stage 2 (Not Applicable) Dr. Eulalio Sykes Work Phone: Start: 10-04-2022 Fluoroscopic guidance Natacha Sykes Work Phone: Start: 10-04-2022 Pelvis X-ray Dr. Jacinto Sykes Work Phone: Start: 03-29-2022 CT of head without contrast Start: 01-31-2022 Adult depression scr eening assessment Jonathan Mendoza PA-C Work Phone: Start: 01-01-2022 Nerve conduction jorge dies 5-6 studies Jonathan Mendoza PA-C Work Phone: Start: 12-19-2021 Adult depression scr eening assessment Jewel Pinedo MD Work Phone: Start: 11-08-2021 Adult depression scr eening assessment Mi Nurse Work Phone: Start: 08-31-2021 Radex shoulder compl ete minimum 2 views M Derrick Acevedo PA-C Work Phone: Start: 08-05-2020 Mammography Mi Nurse Work Phone: Start: 07-03-2017 Colonoscopy Mi Nurse Work Phone: Measurement of occul t blood in stool specimen using immunoassay Dr. Eulalio Sykes Work Phone: Plan of Treatment Date Care Activity Detail Author Start: 05-27-2029 Urine microalbumin profile [facility] Start: 2027 RSV Vaccine (1 - 1-d ose 75+ series) RSV Vaccine (1 - 1-dose 75+ series) [facility] Start: 03-30-2027 LIPID SCREEN LIPID SCREEN [facility] Start: 03-25-2026 LIPID SCREEN LIPID SCREEN [facility] Start: 04-03-2025 DIABETES SCREEN DIABETES SCREEN [facility] Start: 03-30-2025 DIABETES SCREEN DIABETES SCREEN [facility] Start: 09-25-2024 DIABETES SCREEN DIABETES SCREEN [facility] Start: 05-03-2024 Covid-19 Vaccine () Covid-19 Vaccine () [facility] Start: 05-03-2024 Influenza vaccination Influenza Vacc ine (#1) [facility] Start: 09-02-2023 Advance Directive Discussion Advance Directive Discussion [facility] Start: 05-24-2023 BP CONTROLLED (<130/80) BP CONTROLLE D (<130/80) [facility] Start: 05-21-2023 Patient referral [facility] Work Phone: Start: 05-04-2023 ANNUAL PCP TEAM PEDIATRICS PHYSICIAN TITA DISEASE VISIT ANNUAL PCP TEAM CHRONIC DISEASE VISIT [facility] Start: 05-03-2023 Influenza vaccination [facility] Start: 03-30-2023 Hepatitis B surface antibody level LDL CHOLESTEROL [facility] Start: 03-28-2023 ANNUAL PCP TEAM PEDIATRICS PHYSICIAN TITA DISEASE VISIT ANNUAL PCP TEAM CHRONIC DISEASE VISIT [facility] Start: 02-12-2023 End: 04-14-2023 ALBUMIN/CREAT RATIO RND UR ALBUMIN/CREAT RATIO RND UR Lab Routine Type 2 diabetes mellitus without complication, without long-term current use of insulin (HCC) Expected: 02/12/2023, Expires: 04/14/2023 [facility] Work Phone: Comment on above: Expected: 02/12/2023 , Expires: 04/14/2023 Start: 02-12-2023 End: 04-14-2023 Hemoglobin A1c in Blood HGB A1C Lab Routine Type 2 diabetes mellitus without complication, without long-term current use of insulin (HCC) Expected: 02/12/2023, Expires: 04/14/2023 [facility] Work Phone: Comment on above: Expected: 02/12/2023 , Expires: 04/14/2023 Start: 01-31-2023 Adult depression screening assessment DEPRESSION SCREENING [facility] Start: 12-19-2022 Adult depression screening assessment DEPRESSION SCREENING [facility] Start: 12-11-2022 End: 02-10-2023 ALBUMIN/CREAT RATIO RND UR ALBUMIN/CREAT RATIO RND UR Lab Routine Type 2 diabetes mellitus without complication, without long-term current use of insulin (HCC) Expected: 12/11/2022, Expires: 02/10/2023 [facility] Work Phone: Comment on above: Expected: 12/11/2022 , Expires: 02/10/2023 Start: 12-11-2022 End: 02-10-2023 Hemoglobin A1c in Blood HGB A1C Lab Routine Type 2 diabetes mellitus without complication, without long-term current use of insulin (HCC) Expected: 12/11/2022, Expires: 02/10/2023 [facility] Work Phone: Comment on above: Expected: 12/11/2022 , Expires: 02/10/2023 Start: 11-08-2022 Adult depression screening assessment DEPRESSION SCREENING [facility] Start: 10-25-2022 Patient discharge [facility] Start: 10-04-2022 Anes integ musc & nr v head neck&posterior trunk ANESTH HEAD/NECK/PTRUNK [facility] Start: 10-04-2022 Prq impltj neurostim eltrd sacral nrve w/imaging IMPLANT NEUROELECTRODES [facility] Start: 10-04-2022 Patient discharge [facility] Start: 09-30-2022 Hemoglobin A1c measurement HbA1C [facility] Start: 09-30-2022 Hemoglobin A1c/Hemoglobin.total in Blood HBA1C [facility] Start: 09-02-2022 ADVANCE DIRECTIVE DISCUSSION ADVANCE DIRECTIVE DISCUSSION [facility] Start: 09-02-2022 DEPRESSION ASSESSMENT DEPRESSION ASS ESSMENT [facility] Start: 07-03-2022 Colonoscopy COLONOSCOPY [facility] Start: 07-03-2022 COLORECTAL CANCER SCREENING COLORECTAL CANCER SCREENING [facility] Start: 07-03-2022 Screening for malign ant neoplasm of colon [facility] Start: 05-17-2022 Patient referral [facility] Work Phone: Start: 05-04-2022 End: 07-04-2022 Comprehensive metabolic 2000 panel - Serum or Plasma COMP METABOLIC PANEL Lab Routine 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) Right hemiparesis (HCC) Mixed hyperlipidemia Expected: 05/04/2022, Expires: 07/04/2022 [facility] Work Phone: Comment on above: Expected: 05/04/2022 , Expires: 07/04/2022 Start: 05-04-2022 End: 07-04-2022 Lipid 1996 panel - Serum or Plasma LIPID PANEL BASIC Lab Routine 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) Right hemiparesis (HCC) Mixed hyperlipidemia Expected: 05/04/2022, Expires: 07/04/2022 [facility] Work Phone: Comment on above: Expected: 05/04/2022 , Expires: 07/04/2022 Start: 05-03-2022 Influenza vaccination INFLUENZA (#1) [facility] Start: 05-03-2022 Patient referral [facility] Work Phone: Start: 04-22-2022 Patient discharge [facility] Work Phone: Start: 04-21-2022 Cardiac event recording [facility] Work Phone: Start: 04-11-2022 Patient referral to dietitian [facility] Work Phone: Start: 04-11-2022 [facility] Work Phone: Start: 04-04-2022 Patient referral to dietitian [facility] Work Phone: Start: 04-03-2022 Referral to service [facility] Work Phone: Start: 04-03-2022 Urinary bladder training [facility] Work Phone: Start: 04-03-2022 Admission procedure [facility] Work Phone: Start: 04-03-2022 Patient referral to dietitian [facility] Work Phone: Start: 04-03-2022 Referral to occupational therapist [facility] Work Phone: Start: 04-03-2022 Vital signs measurements [facility] Work Phone: Start: 04-03-2022 End: 04-03-2022 [facility] Work Phone: Start: 04-03-2022 Incentive spirometry [facility] Work Phone: Start: 04-03-2022 Speech therapy assessment [facility] Work Phone: Start: 03-28-2022 End: 05-28-2022 Bacteria identified in Urine by Culture URINE CULTURE Microbiology Routine Urge incontinence Expected: 03/28/2022, Expires: 05/28/2022 [facility] Work Phone: Comment on above: Expected: 03/28/2022 , Expires: 05/28/2022 Start: 03-28-2022 End: 05-28-2022 CBC W Auto Differential panel - Blood CBC + DIFF Lab Routine Hyperlipidemia, unspecified hyperlipidemia type Expected: 03/28/2022, Expires: 05/28/2022 [facility] Work Phone: Comment on above: Expected: 03/28/2022 , Expires: 05/28/2022 Start: 03-28-2022 End: 05-28-2022 Comprehensive metabolic 2000 panel - Serum or Plasma COMP METABOLIC PANEL Lab Routine Hyperlipidemia, unspecified hyperlipidemia type Expected: 03/28/2022, Expires: 05/28/2022 [facility] Work Phone: Comment on above: Expected: 03/28/2022 , Expires: 05/28/2022 Start: 03-28-2022 End: 05-28-2022 Hemoglobin A1c in Blood HGB A1C Lab Routine Impaired fasting glucose Expected: 03/28/2022, Expires: 05/28/2022 [facility] Work Phone: Comment on above: Expected: 03/28/2022 , Expires: 05/28/2022 Start: 03-28-2022 End: 05-28-2022 Urinalysis complete panel - Urine URINALYSIS, WITH MICROSCOPIC Lab Routine Urge incontinence Expected: 03/28/2022, Expires: 05/28/2022 [facility] Work Phone: Comment on above: Expected: 03/28/2022 , Expires: 05/28/2022 Start: 09-02-2021 ADVANCE DIRECTIVE DISCUSSION ADVANCE DIRECTIVE DISCUSSION [facility] Start: 09-02-2021 DEPRESSION ASSESSMENT DEPRESSION ASS ESSMENT [facility] Start: 08-05-2021 Mammography MAMMOGRAM [facility] Start: 08-05-2021 Screening for malign ant neoplasm of breast Mammogram Screening [facility] Start: 05-06-2021 COVID-19 VACCINE (3 - Booster for Pfizer series) COVID-19 VACCINE (3 - Booster for Pfizer series) [facility] Start: 01-29-2021 COVID-19 VACCINE (3 - Booster for Pfizer series) COVID-19 VACCINE (3 - Booster for Pfizer series) [facility] Start: 10-17-2019 FECAL OCCULT BLOOD FECAL OCCULT BLOO D [facility] Start: 10-17-2019 Screening for malign ant neoplasm of colon Fecal Occult Blood [facility] Start: 06-11-2014 SHINGRIX VACCINE (2 of 3) SHINGRIX VACCINE (2 of 3) [facility] Start: 11-15-2011 Hepatitis B screening URINE AL BUMIN:CREATININE RATIO [facility] Start: 1997 COLOGUARD (FIT-DNA) COLOGUARD (FIT-D NA) [facility] Start: [address] COLONOGRAPHY [facility] Start: 1997 Screening for malign ant neoplasm of colon [facility] Start: 1997 SIGMOIDOSCOPY SIGMOIDOSCOPY [facility] Start: 1970 BP CONTROLLED (<130/80) BP CONTROLLE D (<130/80) [facility] Start: 1970 Depression Screening Depression Scre ening [facility] Start: 1962 3 comp foot exam completed DIABETIC FOOT EXAM [facility] Start: 1962 Diabetic foot examination Diabetic Foot Exam [facility] Start: 1962 Glaucoma screening Dilated Retinal E xam [facility] Start: 1962 Hepatitis C antibody , confirmatory test DILATED RETINAL EXAM [facility] Hemoglobin A1c/Hemoglobin.total in Blood [facility] End: 04-04-2024 ALBERTO SCREENING ALBERTO SCREENING Radiology Routine Encounter for screening mammogram for breast cancer 1 Occurrences starting 03/06/2023 until 04/04/2024 [facility] Work Phone: Comment on above: 1 Occurrences starti ng 03/06/2023 until 04/04/2024 MG Breast - bilatera l Screening [facility] Work Phone: MG Breast - bilatera l Screening [facility] Patient Education [facility] Work Phone: Patient referral [facility] Work Phone: End: 04-27-2023 Screening mammography bi 2-view breast inc cad ALBERTO SCREENING Radiology Routine Screening breast examination 1 Occurrences starting 03/28/2022 until 04/27/2023 [facility] Work Phone: Comment on above: 1 Occurrences starti ng 03/28/2022 until 04/27/2023 [facility] Immunizations Immunization Date Immunization Notes Care Provider Fa cortney 06-26-2022 influenza, injectabl e, quadrivalent, preservative free Dr. Nimisha Olvera Work Phone: [facility] 06-26-2022 influenza, seasonal, injectable Dr. Eulalio Sykes Work Phone: [facility] 09-25-2021 pneumococcal polysaccharide vaccine, 23 valent Mi Nurse Work Phone: [facility] 08-31-2021 influenza, high dose seasonal, preservative-free Dr. Eulalio Sykes Work Phone: [facility] 08-31-2021 influenza, high-dose , quadrivalent vaccine (FLUZONE HIGH DOSE QUADRIVALENT) Mi Nurse Work Phone: [facility] 08-31-2021 influenza virus vacc ine, unspecified formulation Xr Nunnelly Work Phone: [facility] 12-04-2020 Covid (Pfizer) Dr. Eulalio mckeon Work Phone: [facility] 11-12-2020 Covid (Pfizer) Dr. Eulalio mckeon Work Phone: [facility] 07-07-2020 influenza, high dose seasonal, preservative-free Mi Nurse Work Phone: [facility] 05-27-2019 influenza, high dose seasonal, preservative-free Mi Nurse Work Phone: [facility] 05-27-2019 tetanus and diphther ia toxoids, adsorbed, preservative free, for adult use (2 Lf of tetanus toxoid and 2 Lf of diphtheria toxoid) Dr. Eulalio Sykes Work Phone: [facility] 05-27-2019 tetanus and diphther ia toxoids, adsorbed, preservative free, for adult use (5 Lf of tetanus toxoid and 2 Lf of diphtheria toxoid) Mi Nurse Work Phone: [facility] 06-02-2018 influenza, high dose seasonal, preservative-free Mi Nurse Work Phone: [facility] 12-06-2017 pneumococcal conjuga te vaccine, 13 valent Mi Nurse Work Phone: [facility] 06-21-2017 influenza, high dose seasonal, preservative-free Mi Nurse Work Phone: [facility] 07-06-2016 pneumococcal polysaccharide vaccine, 23 valent Mi Nurse Work Phone: [facility] 05-03-2015 influenza, injectabl e, quadrivalent, preservative free Dr. Nimisha Olvera Work Phone: [facility] 05-03-2015 influenza, seasonal, injectable Mi Nurse Work Phone: [facility] 06-25-2014 influenza, injectabl e, quadrivalent, preservative free Dr. Nimisha Olvera Work Phone: [facility] 06-25-2014 influenza, seasonal, injectable Mi Nurse Work Phone: [facility] 04-16-2014 zoster vaccine, live Mi Nurs e Work Phone: [facility] 03-04-2013 tetanus toxoid, redu luis a diphtheria toxoid, and acellular pertussis vaccine, adsorbed Dr. Eulalio Sykes Work Phone: [facility] 06-09-2011 influenza virus vacc ine, unspecified formulation Mi Nurse Work Phone: [facility] 05-19-2009 influenza virus vacc ine, unspecified formulation Mi Nurse Work Phone: [facility] Work Phone: 05-19-2009 tetanus toxoid, redu luis a diphtheria toxoid, and acellular pertussis vaccine, adsorbed Oh Nurse Work Phone: [facility] Work Phone: 07-23-2008 influenza virus vacc ine, unspecified formulation Oh Nurse Work Phone: [facility] Work Phone: 07-12-2007 influenza virus vacc ine, unspecified formulation Oh Nurse Work Phone: [facility] Work Phone: 08-20-2003 hepatitis B vaccine, adult dosage Dr. Eulalio Sykes Work Phone: [facility] 08-02-2003 influenza virus vacc ine, whole virus Oh Nurse Work Phone: [facility] Work Phone: 03-19-2003 hepatitis B vaccine, adult dosage Dr. Eulalio Sykes Work Phone: [facility] 02-17-2003 hepatitis B vaccine, adult dosage Dr. Eulalio Sykes Work Phone: [facility] 08-11-1999 diphtheria and tetan us toxoids, adsorbed for pediatric use Oh Nurse Work Phone: [facility] Work Phone: 08-11-1999 TD(adult) unspecifie d formulation Dr. Eulalio Sykes Work Phone: [facility] Payers Date Payer Category Payer Unknown [id number] 2024 Self-pay [id number] 2023 Medicaid [id number] 2021 Medicare HUMANA MEDICARE HUMANA GOLD PLUS [id number] 2021-Present [id number] [place] [id number] [facility] [id number] 2021 Medicare HUMANA MEDICARE HUMANA GOLD PLUS [id number] 2021-[facility] [phone] [facility] [address] [place] [address] O [id number] 2021 Private Health Insurance [id number] 2017 Medicare [id number] 2015 Unknown [id number] Medicare MEDICARE PART A B [id number] 4 [id number] Unknown [id number] Unknown [id number] 2.16.840.1.755034.3.579.2.4 62 Unknown [id number] 2.16.840.1.447665.3.579.2.4 62 Unknown [id number] 2.16.840.1.121813.3.579.2.4 62 Unknown [id number] 2.16.840.1.526933.3.579.2.4 62 Unknown [id number] 2.16.840.1.021149.3.579.2.4 62 Unknown [id number] 2.16.840.1.126781.3.579.2.4 62 Unknown [id number] 2.16.840.1.692943.3.579.2.4 62 Unknown [id number] 2.16.840.1.572205.3.579.2.4 62 Unknown [id number] 2.16.840.1.594259.3.579.2.4 62 Unknown [id number] 2.16.840.1.546614.3.579.2.4 62 Unknown [id number] 2.16.840.1.130817.3.579.2.4 62 Unknown [id number] 2.16.840.1.673138.3.579.2.4 62 Unknown [id number] 2.16.840.1.485025.3.579.2.4 62 Unknown [id number] 2.16.840.1.188374.3.579.2.4 62 Unknown [id number] 2.16.840.1.642858.3.579.2.4 62 Unknown [id number] 2.16.840.1.498579.3.579.2.4 62 Unknown [id number] 2.16.840.1.498729.3.579.2.4 62 Unknown [id number] 2.16.840.1.115456.3.579.2.4 62 Unknown [id number] 2.16.840.1.505381.3.579.2.4 62 Unknown [id number] 2.16.840.1.486844.3.579.2.4 62 Unknown [id number] 2.16.840.1.281203.3.579.2.4 62 Unknown [id number] 2.16.840.1.548049.3.579.2.4 62 Unknown [id number] 2.16.840.1.634760.3.579.2.4 62 Unknown [id number] 2.16.840.1.131222.3.579.2.4 62 Unknown [id number] 2.16.840.1.773026.3.579.2.4 62 Unknown [id number] 2.16.840.1.265077.3.579.2.4 62 Unknown [id number] 2.16.840.1.169858.3.579.2.4 62 Unknown [id number] 2.16.840.1.471131.3.579.2.4 62 Unknown [id number] 2.16.840.1.894144.3.579.2.4 62 Unknown [id number] 2.16.840.1.995792.3.579.2.4 62 Unknown [id number] 2.16.840.1.239773.3.579.2.4 62 Unknown [id number] 2.16.840.1.796169.3.579.2.4 62 Unknown [id number] 2.16.840.1.653196.3.579.2.4 62 Unknown [id number] 2.16.840.1.456744.3.579.2.4 62 Unknown [id number] 2.16.840.1.657988.3.579.2.4 62 Social History Date Type Detail Facility Start: 09-15-2011 Tobacco smoking stat NHIS Never smoked tobacco [facility] Work Phone: Start: 08-31-2021 End: 12-11-2021 Alcohol intake Current non-drinker of alcohol (finding) [facility] Start: 02-10-2020 End: 08-31-2021 History SDOH Alcohol Frequency 1 [facility] Start: 02-10-2020 End: 08-03-2020 History SDOH Alcohol Std Drinks 98 [facility] Start: 02-10-2020 End: 08-03-2020 History SDOH Social Connections Phone 3 [facility] Start: 02-10-2020 End: 04-01-2022 History SDOH Social Connections Membership 2 [facility] Start: 02-10-2020 History SDOH Financial 5 [facility] Start: 08-02-2020 Education 21 [facility] Start: 1950 Sex Assigned At Not on file [facility] Start: 08-01-2021 End: 05-24-2022 Exposure to SARS-CoV-2 (event) Not sure [facility] Start: 03-29-2022 End: 11-19-2023 Tobacco smoking status NHIS Unknown if ever smoked [facility] Start: 09-06-2015 None [facility] Start: 09-06-2015 Non-smoker [facility] Start: 1950 Sex Assigned At Female [facility] Start: 09-15-2011 Tobacco use and exposure Smokeless tobacco non-user [facility] Start: 04-01-2022 History SDOH Financial 4 [facility] Start: 08-06-2020 End: 05-24-2022 History of Social function [facility] Start: 08-06-2020 End: 05-24-2022 Tobacco use panel [facility] How hard is it for y ou to pay for the very basics like food, housing, medical care, and heating Not very hard [facility] Adult Depression Screening Assessment 2 [facility] (I/We) worried vita er (my/our) food would run out before (I/we) got money to buy more. Never true [facility] In the past 12 month s, was there a time when you were not able to pay the mortgage or rent on time? No [facility] Do you feel stress - tense, restless, nervous, or anxious, or unable to sleep at night because your mind is troubled all the time - these days [OSQ] Not at all [facility] NEGATED: Highlighted row [facility] Medical Equipment Procedure Code Equipment Code Equipment Origin al Text Equipment Identifier Dates [id number] FDA Start: 10-04-2022 [id number] FDA Start: 10-04-2022 Implantable incontinence-control electrical stimulation system pulse generator [id number] FDA Start: 10-25-2022 Goals Date Patient Goal Desired Activity /State Functional Status Date Assessment Result Facility 04-22-2022 Functional status Activity Ability Indepe ndent [facility] Work Phone: 04-21-2022 Functional status Chair [facility] Work Phone: Mental Status Date Assessment Result Facility 10-25-2022 Cognitive function Voice/Name;Touch/Shaki ng [facility] Work Phone: 10-04-2022 Cognitive function Voice/Name [facility] Work Phone: 04-22-2022 Cognitive function Voice/Name [facility] Work Phone: 03-29-2022 Cognitive function Voice/Name [facility] Work Phone: Clinical Notes 06-24-2017 to 05-21-2024 Note Date & Type Note Facility 05-21-2024 Note [facility] Medical Records Department [address] [place] [address] History Physical Exam 05/21/24 0801 MR#: [id number] Acct: [id number] Name: SHIRA SHEN Rep #: [id number] : 1950 74 From: Blayne Friend DO PCP: Dr. Nimisha Olvera MD Status:[employer] Location: [place] [address] History and Physical Date of Admission: 05/21/24 F who presents to the office today for [facility] ED f/u. She has been having epigastric pain for the past month. She does have a hx of GERD. She does take naproxen two times per day for a few months now. She has never had an EGD done. Coloscopies have been normal in the past. Her PCP put her back on nexium and has her taking sucralfate as well. She says the sucralfate makes her have more reflux but she continues to take it. She denies n/v, melena, diarrhea or abdominal pain. CT abdomen/pelvis 03.30.24; Status post cholecystectomy Fatty infiltration of the liver. Minimal right hydronephrosis although no obstructive uropathy is seen Biochemical work up 03.30.24 CBC without pertinent abnormality, CMP with slightly elevated liver enzymes, lipase wnl ROS Const Constitutional: Positive for fatigue, headache(s), weakness and weight change (weight gain); No fever(s) ENT ENT: Positive for headache(s); No difficulty swallowing Cardio Cardiology: Positive for leg pain with exertion Gastro GI: Positive for abdominal pain, bloating, change in bowel habits, constipation, heartburn, excessive flatus, Blood in stool and nausea/dyspepsia; No belching, change in stool character, coffee ground emesis, cramping, diarrhea, difficulty swallowing, feeling full early, incontinent of stools, Vomiting blood/hematemesis, loose stools, Black,tarry stools, pain with swallowing, vomiting or other Musc Musculoskeletal: Positive for joint pain, muscle cramps, muscle weakness, stiffness, Arthritis, restless legs, leg pain at night and leg pain with exertion Skin Skin: No yellowing of the eye or itchy eyes Neuro Neurology: Positive for weakness, headache(s) and restless legs Psych Psychiatric: Positive for anxiety and Positive for depression Endo Endocrine: Positive for fatigue and weight change (weight gain) Aller/Imm Allergy/Immunologic: No itchy eyes Elías/Lymp Hematologic/Lymphatic: No easy bleeding or easy bruising Exam Const General: cooperative and comfortable Nutritional Appearance: average body habitus and well nourished HENMT Head: normal to inspection Ears: hearing grossly normal bilaterally Nose: external nose normal Face and sinus: normal facial exam Eyes General: appearance normal, both eyes and all related structures Neck Neck: normal visual inspection Chest Chest palpation inspection: normal inspection of the chest Resp Effort Inspection: normal respiratory effort Cardio Palpation: normal PMI GI Inspection: normal to inspection Percussion: normal to percussion Palpation: soft, no hepatosplenomegaly and tender Skin General: no rashes or lesions noted Neuro General: patient alert Extrem General: normal to inspection Psych Affect: normal affect Assessment and Plan Assessment and Plan (1) Epigastric abdominal pain: Status: Acute Plan: Patient is here today following [facility] ED visit 03.30.24 for epigastric pain. She has a hx of GERD and has been on Nexium in the past. She takes naproxen two times per day for the past couple of months. She is currently taking sucralfate and nexium prescribed by her PCP. Differential diagnosis includes GERD, gastritis or PUD -Will schedule patient for EGD -She would like to continue taking sucralfate although it makes her pain worse. She will also continue taking nexium -Order lab work; gastrin, anti parietal cell antibody, CBC and CMP Orders: Orders CBC W/Diff, Automated Today R10.13 - Epigastric pain Anti-Parietal Cell AB, QN Today R10.13 - Epigastric pain Comprehensive Metabolic Profil Today R10.13 - Epigastric pain Gastrin, Serum I have examined the patient and the H P has been reviewed. There are no clinical changes since date of exam. 05/21/24 0802 Cosigner Signature (if applicable): CC: Dr. Nimisha Olvera MD; Blayne Friend, DO Signed [facility] 07-30-2023 Discharge summary Note Date/Time July 30, 2023 11:12am [facility] Physical Therapy [facility] [address] [place] [address] / REHABILITATION SERVICES DISCHARGE SUMMARY MR#: [id number] Acct: [id number] Name: SHIRA SHEN Rep #: [id number] : 1950 73 From: Barry Rivera DPT, OCS, CSCS Referring Dr.: Dr. Nimisha Olvera MD Status: REG RCR Insurance: [facility] [place] [facility] 07/03/18 SELF PAY INSURANCE Discharge Summary D/C summary: It has been my pleasure to treat SHIRA SHEN referred by Dr. Nimisha Olvera MD, with the diagnosis of CVA for a total of 9 visit(s). Discharge Date: 07/30/23 Please see the following information for a summary of their discharge status. Subjective Subjective: I'm alive. Not much improvement. Pain in R groin is holding her back. Sometimes almost giving out. Picked up some heavy books over a month ago. R groin pain started and has kept her from doing alot of exercise on R leg. Using walker much of time but not at home but hard to walk. Pain R leg: Pain Intensity (Out of 10): 7 Overall Improvement % Improvement: 0 Objective Objective/Function: Walks antalgic on R avoiding much R hip motion, Better with walker, able without AD but slow and painful. Trasfers chair and bed I. PROM R hip is WFL but painful end range of er, flexion and extension qith quad stretch. Overall not improving and feeling worse becaause of hip pain more than anything. Goals Goal 1:: I appropriate HEP for LE coordination, strength adn mobility via HEP Goal Progress: limited by pain Goal 2:: Patient score 26/30 on FGA to reduce fall risk Goal Progress: Not Progressing Goal 3:: Pt feel 50% better in mobility and tightness in R leg Goal Progress: Not Progressing Goal 4:: Patient able to ie flat on back with R leg off table without pain Goal Progress: Progressing Plan Plan: d/c, pt to contact doctor regarding next step for hip. Should consider being sent back to PT for strengthening once hip is better or consider water therapy if limited options for R hip pain. D/C Information Discharge Comments: Pt to schedule with doctor regarding hip pain Right which isholding her back on her exercise and progression d/c sentence: If there are questions or concerns regarding this patient's physical therapy, please feel free to call me at [phone]. Thank you for the referral of thispatient. Sincerely, Barry Rivera, ADAMARIS, OCS, CSCS Balance/Gait/Functional tests Balance/Special Test Scores Functional Gait Assessment Score: 24 % Disability: 20.0000 Lower Extremity Functional Score: 9 Improvement % Improvement: 0 <Electronically signed by Barry Rivera DPT, JHONATAN, CSCS> 07/30/23 1112 CC: Dr. Nimisha Olvera MD ~ EBG Signed [facility] Work Phone: 1(166) 542-521107-05-2023 NoteHNO ID: [id number] Author: Donnie Ramirez LPN Service: ? Author Type: ? Type: Progress Notes Filed: 03/06/2023 1:50 PM Note Text: [facility] NoteHNO ID: [id number] Author: Eulalio Sykes MD Service: ? Author Type: Physician Type: Progress Notes Filed: 03/06/2023 1:43 PM Note Text: [facility] NoteHNO ID: [id number] Author: Katherine Almanzar MA Service: ? 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 Type: Progress Notes Filed: 03/06/2023 1:13 PM Note Text: POPULATION HEALTH NAVIGATION OUTREACH Action/I Patient declines scheduling. States she is living in [place] currently. Declines to provide updated address. No CLAUDIA noted in chart. Patient Identified by Name and : YES, via phone Outreach Outcome/Action Spoke to patient / parent / legal guardian: Patient declined Did you use a PCP flex slot to schedule this appointment? N/A Reason for Outreach Care Gap or Scheduling/Wellness visits Payer: Payor: [employer] MEDICARE / Plan: Dónde PLUS / Product Type: HMO / Care Gap Reviewed:: Annual Wellness visit Breast Cancer screening Colorectal Cancer Screening Diabetic Eye Exam HBA1C Nephropathy (Albumin/Creatinine) Urine Reminder: Reminder note to check Health Maintenance for items below Health Maintenance items due: DILATED RETINAL EXAM Never done DIABETIC FOOT EXAM Never done URINE ALBUMIN:CREATININE RATIO due on 11/15/2011 SHINGRIX VACCINE(2 of 3) due on 06/11/2014 COVID-19 VACCINE(3 - Booster for Pfizer series) due on 01/29/2021 MAMMOGRAM due on 08/05/2021 COLORECTAL CANCER SCREENING due on 07/03/2022 ADVANCE DIRECTIVE DISCUSSION due on 09/02/2022 DEPRESSION ASSESSMENT Never done HBA1C due on 09/30/2022 LDL CHOLESTEROL due on 03/30/2023 Navigation Signature: Katherine Almanzar MA March 06, 2023 12:52 [facility]07-05-2023 NotePatient Outreach (INTMMN) SHIRA SHEN ([id number]) 1950 F NFR Date Time Provider Department 03/06/23 EULALIO SYKES INTMMN During your visit today, we recorded the following information about you: Allergies As of Date: 03/06/2023 Noted Allergy Reaction PRAVACHOL (PRAVASTATIN) 11/20/2010 9 - Itching Comments: November 20, 2010 -- itching without rash DVDYSIV-USN-RZX REDUCTASE INHIBIT*02/26/2014 9 - Itching 16 - Unknown CODEINE 03/21/2005 Comments: chest pain AND pressure DOXYCYCLINE 09/15/2018 2 - Rash Comments: Blisters in mouth LEVOFLOXACIN 05/18/2016 14 - Other: See Comments Comments: Itching. PENICILLINS 03/21/2005 2 - Rash Comments: swesameer AND albert Has used cephalosporins SULFA (SULFONAMIDE ANTIBIOTICS) 03/21/2005 Comments: uticaria Date Reviewed: 05/24/2022 Reviewed by: Sarika Back MA - Fully Assessed Visit Diagnosis:Encounter for screening mammogram for breast cancer [Z12.31] Order(s):[facility] SCREENING [0215330] Order #: [id number] FUTURE Prescriptions as of 03/11/2023 - pantoprazole DR (PROTONIX) 40 mg tablet Take 40 mg by mouth twice daily. - amLODIPine (NORVASC) 2.5 mg tablet Take 1 tablet by mouth once daily. - aspirin 81 mg chewable tablet 1 tablet by ORAL/FEEDING TUBE route once daily. - atorvastatin (LIPITOR) 40 mg tablet Take 1 tablet by mouth daily at bedtime. - famotidine (PEPCID) 40 mg tablet Take 1 tablet by mouth once daily. - gabapentin (NEURONTIN) 300 mg capsule Take 1 capsule by mouth three times daily for 90 days. - propranolol ER (INDERAL LA) 120 mg 24 hr capsule Take 1 capsule by mouth once daily. - sertraline (ZOLOFT) 25 mg tablet Take 25 mg by mouth twice daily. - montelukast (SINGULAIR) 10 mg tablet Take 1 tablet by mouth daily at bedtime. - cranberry fruit extract (CRANBERRY ORAL) Take 1 tablet by mouth once daily. - coenzyme Q10 (COENZYME Q-10) 100 mg cap capsule Take 200 mg by mouth once daily. - fluticasone (FLONASE) 50 mcg/actuation nasal spray Use 2 Sprays in each nostril once daily. Rinse mouth after use. - COMPOUNDED PRESCRIPTION CPAP 9 cmH2O with humidification and a standard size ResMed AirFit N10 nasal mask without chin strap - acetaminophen (TYLENOL EXTRA STRENGTH) 500 mg tablet Take 2 tablets by mouth every 6 hours as needed for Pain. Take every 6 hours for first three days. Then take every 6 hours as needed. - Ascorbic Acid 500 mg cpER Take 1 Each by mouth once daily. - cholecalciferol (VITAMIN D3) 1,000 unit tab tablet Take 1,000 Units by mouth once daily. - multivitamins(MULTIPLE VITAMIN TAB) Take one(1) tablet daily. Meds Comments as of 03/28/2022: Takes Apple Cider Vinegar capsules daily. 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] 12/13/2007 Bipolar I disorder (HCC) [F31.9] [facility] NOS [Z91.89] 12/13/2007 Tuberculin test reaction [795.5] 12/13/2007 Panic disorder without agoraphobia [F41.0] 12/13/2007 Urinary frequency [R35.0] 03/29/2009 Hyperactivity of bladder [N31.8] 05/03/2009 Routine general medical examination at [facility]*05/19/2009 12/24/2014 Class: Chronic Routine gynecological examination [Z01.419] 05/19/2009 12/24/2014 Class: Chronic Impaired fasting glucose [R73.01] 05/19/2009 Mixed hyperlipidemia [E78.2] 05/16/2011 Family history of colon cancer [Z80.0] 02/26/2014 12/24/2014 Bilateral carotid artery stenosis [I65.23] 03/01/2017 Sicca syndrome (HCC) [M35.00] 03/01/2017 Headache [R51.9] 12/06/2017 GERD (gastroesophageal reflux disease) [K21.9] 06/24/2017 Lower abdominal pain [R10.30] 06/24/2017 12/06/2017 Tachycardia [R00.0] 06/28/2017 Rectocele [N81.6] 11/14/2017 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] 11/14/2017 OAB (overactive bladder) [N32.81] 11/14/2017 Urge incontinence [N39.41] 11/14/2017 Multiple gastric polyps [K31.7] 12/06/2017 Constipation [K59.00] 01/01/2018 Incontinence of feces [R15.9] 01/01/2018 JANE (obstructive sleep apnea) [G47.33] 05/23/2018 Brain cyst [G93.0] 06/10/2019 Vertigo [R42] 06/17/2019 Atrophic vaginitis [N95.2] 08/24/2020 Nocturia [R35.1] 08/24/2020 Feeling of incomplete bladder emptying [R39.14] 08/24/2020 Shoulder strain, left, initial encounter [S46.9*07/13/2021 Neck pain on left side [M54.2] 07/13/2021 Stenosis of cerebral artery [I66.9] 03/30/2022 Cerebrovascular accident (CVA) due to occlusion*03/30/2022 Dysphagia [R13.10] 03/30/2022 Primary hypertension [I10] 03/30/2022 Right hemiparesis (HCC) [G81.91] 03/31/2022 Obesity, Class I, BMI 30-34.9 [E66.9] 04/03/2022 Type 2 diabetes mellitus without complication, *06/18/2022 Encounter Status:Closed by MARAH BOLIVAR on 03/11/23[facility] 03-06-2023 NotePatient Outreach (NETNAV) SHIRA SHEN ([id number]) 1950 F NFR Date Time Provider Department 03/06/23 KATHERINE SPRAGUE During your visit today, we recorded the following information about you: Katherine Almanzar MA 03/06/2023 1:13 PM Signed POPULATION HEALTH NAVIGATION OUTREACH Action/FYI Patient declines scheduling. States she is living in [place] currently. Declines to provide updated address. No CLAUDIA noted in chart. Patient Identified by Name and : YES, via phone Outreach Outcome/Action Spoke to patient / parent / legal guardian: Patient declined Did you use a PCP flex slot to schedule this appointment? N/A Reason for Outreach Care Gap or Scheduling/Wellness visits Payer: Payor: [employer] MEDICARE / Plan: [employer] / Product Type: HMO / Care Gap Reviewed:: Annual Wellness visit Breast Cancer screening Colorectal Cancer Screening Diabetic Eye Exam HBA1C Nephropathy (Albumin/Creatinine) Urine Reminder: Reminder note to check Health Maintenance for items below Health Maintenance items due: DILATED RETINAL EXAM Never done DIABETIC FOOT EXAM Never done URINE ALBUMIN:CREATININE RATIO due on 11/15/2011 SHINGRIX VACCINE(2 of 3) due on 06/11/2014 COVID-19 VACCINE(3 - Booster for Pfizer series) due on 01/29/2021 MAMMOGRAM due on 08/05/2021 COLORECTAL CANCER SCREENING due on 07/03/2022 ADVANCE DIRECTIVE DISCUSSION due on 09/02/2022 DEPRESSION ASSESSMENT Never done HBA1C due on 09/30/2022 LDL CHOLESTEROL due on 03/30/2023 Navigation Signature: Katherine Almanzar MA March 06, 2023 12:52 PM Eulalio Sykes MD 03/06/2023 1:43 PM Signed Can take me off as pcp Donnie Ramirez LPN 03/06/2023 1:50 PM Signed PCP updated. Donnie Ramirez LPN Allergies As of Date: 03/06/2023 Noted Allergy Reaction PRAVACHOL (PRAVASTATIN) 11/20/2010 9 - Itching Comments: November 20, 2010 -- itching without rash [id number] REDUCTASE INHIBIT*02/26/2014 9 - Itching 16 - Unknown CODEINE 03/21/2005 Comments: chest pain AND pressure DOXYCYCLINE 09/15/2018 2 - Rash Comments: Blisters in mouth LEVOFLOXACIN 05/18/2016 14 - Other: See Comments Comments: Itching. PENICILLINS 03/21/2005 2 - Rash Comments: darren AND albert Has used cephalosporins SULFA (SULFONAMIDE ANTIBIOTICS) 03/21/2005 Comments: uticaria Date Reviewed: 05/24/2022 Reviewed by: Sarika Back MA - Fully Assessed Reason for Visit: Population Health Navigation Outreach [3910] Cmt: [employer] Gaps Prescriptions as of 03/06/2023 - pantoprazole DR (PROTONIX) 40 mg tablet Take 40 mg by mouth twice daily. - amLODIPine (NORVASC) 2.5 mg tablet Take 1 tablet by mouth once daily. - aspirin 81 mg chewable tablet 1 tablet by ORAL/FEEDING TUBE route once daily. - atorvastatin (LIPITOR) 40 mg tablet Take 1 tablet by mouth daily at bedtime. - famotidine (PEPCID) 40 mg tablet Take 1 tablet by mouth once daily. - gabapentin (NEURONTIN) 300 mg capsule Take 1 capsule by mouth three times daily for 90 days. - propranolol ER (INDERAL LA) 120 mg 24 hr capsule Take 1 capsule by mouth once daily. - sertraline (ZOLOFT) 25 mg tablet Take 25 mg by mouth twice daily. - montelukast (SINGULAIR) 10 mg tablet Take 1 tablet by mouth daily at bedtime. - cranberry fruit extract (CRANBERRY ORAL) Take 1 tablet by mouth once daily. - coenzyme Q10 (COENZYME Q-10) 100 mg cap capsule Take 200 mg by mouth once daily. - fluticasone (FLONASE) 50 mcg/actuation nasal spray Use 2 Sprays in each nostril once daily. Rinse mouth after use. - COMPOUNDED PRESCRIPTION CPAP 9 cmH2O with humidification and a standard size ResMed AirFit N10 nasal mask without chin strap - acetaminophen (TYLENOL EXTRA STRENGTH) 500 mg tablet Take 2 tablets by mouth every 6 hours as needed for Pain. Take every 6 hours for first three days. Then take every 6 hours as needed. - Ascorbic Acid 500 mg cpER Take 1 Each by mouth once daily. - cholecalciferol (VITAMIN D3) 1,000 unit tab tablet Take 1,000 Units by mouth once daily. - multivitamins(MULTIPLE VITAMIN TAB) Take one(1) tablet daily. Meds Comments as of 03/28/2022: Takes Apple Cider Vinegar capsules daily. 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] 12/13/2007 Bipolar I disorder (HCC) [F31.9] PERS HEALTH HAZARD NOS [Z91.89] 12/13/2007 Tuberculin test reaction [795.5] 12/13/2007 Panic disorder without agoraphobia [F41.0] 12/13/2007 Urinary frequency [R35.0] 03/29/2009 Hyperactivity of bladder [N31.8] 05/03/2009 Routine general medical examination at [facility]*05/19/2009 12/24/2014 Class: Chronic Routine gynecological examination [Z01.419] 05/19/2009 12/24/2014 Class: Chronic Impaired fasting glucose [R73.01] 05/19/2009 Mixed hyperlipidemia [E78.2] 05/16/2011 Family history of (more content not included)...[facility] 03-06-2023 History of Present illness Narrative* Donnie Ramirez LPN - 03/06/2023 1:50 PM EDT PCP updated. Donnie Ramirez LPN * Eulalio Sykes MD - 03/06/2023 1:40 PM EDT Can take me off as pcp * Katherine Almanzar MA - 03/06/2023 12:51 PM EDT POPULATION HEALTH NAVIGATION OUTREACH Action/FYI Patient declines scheduling. States she is living in [place] currently. Declines to provide updatedaddress. No CLAUDIA noted in chart. Patient Identified by Name and : YES, via phone Outreach Outcome/Action Spoke to patient / parent / legal guardian: Patient declined Did you use a PCP flex slot to schedule this appointment? N/A Reason for Outreach Care Gap or Scheduling/Wellness visits Payer: Payor: [employer] MEDICARE / Plan: First Look Media / Product Type: HMO / Care Gap Reviewed:: Annual Wellness visit Breast Cancer screening Colorectal Cancer Screening Diabetic Eye Exam HBA1C Nephropathy (Albumin/Creatinine) Urine Reminder: Reminder note to check Health Maintenance for items below Health Maintenance items due: DILATED RETINAL EXAM Never done DIABETIC FOOT EXAM Never done URINE ALBUMIN:CREATININE RATIO due on 11/15/2011 SHINGRIX VACCINE(2 of 3) due on 06/11/2014 COVID-19 VACCINE(3 - Booster for Pfizer series) due on 01/29/2021 MAMMOGRAM due on 08/05/2021 COLORECTAL CANCER SCREENING due on 07/03/2022 ADVANCE DIRECTIVE DISCUSSION due on 09/02/2022 DEPRESSION ASSESSMENT Never done HBA1C due on 09/30/2022 LDL CHOLESTEROL due on 03/30/2023 Navigation Signature: Katherine Almanzar MA March 06, 2023 12:52 PM [facility] NotePatient Outreach (INTMMN) SHIRA SHEN ([id number]) 1950 F NFR Date Time Provider Department 02/12/23 EULALIO SYKES During your visit today, we recorded the following information about you: Allergies As of Date: 02/12/2023 Noted Allergy Reaction PRAVACHOL (PRAVASTATIN) 11/20/2010 9 - Itching Comments: November 20, 2010 -- itching without rash [id number] REDUCTASE INHIBIT*02/26/2014 9 - Itching 16 - Unknown CODEINE 03/21/2005 Comments: chest pain AND pressure DOXYCYCLINE 09/15/2018 2 - Rash Comments: Blisters in mouth LEVOFLOXACIN 05/18/2016 14 - Other: See Comments Comments: Itching. PENICILLINS 03/21/2005 2 - Rash Comments: Richie Has used cephalosporins SULFA (SULFONAMIDE ANTIBIOTICS) 03/21/2005 Comments: uticaria Date Reviewed: 05/24/2022 Reviewed by: Sarika Back MA - Fully Assessed Visit Diagnosis:Type 2 diabetes mellitus without complication, without long-term current use of insulin (HCC) [E11.9] Order(s):ALBUMIN/CREAT RATIO RND UR [SQUACR] Order #: [id number] FUTURE HGB A1C [[id number]] Order #: [id number] FUTURE Prescriptions as of 02/15/2023 - pantoprazole DR (PROTONIX) 40 mg tablet Take 40 mg by mouth twice daily. - amLODIPine (NORVASC) 2.5 mg tablet Take 1 tablet by mouth once daily. - aspirin 81 mg chewable tablet 1 tablet by ORAL/FEEDING TUBE route once daily. - atorvastatin (LIPITOR) 40 mg tablet Take 1 tablet by mouth daily at bedtime. - famotidine (PEPCID) 40 mg tablet Take 1 tablet by mouth once daily. - gabapentin (NEURONTIN) 300 mg capsule Take 1 capsule by mouth three times daily for 90 days. - propranolol ER (INDERAL LA) 120 mg 24 hr capsule Take 1 capsule by mouth once daily. - sertraline (ZOLOFT) 25 mg tablet Take 25 mg by mouth twice daily. - montelukast (SINGULAIR) 10 mg tablet Take 1 tablet by mouth daily at bedtime. - cranberry fruit extract (CRANBERRY ORAL) Take 1 tablet by mouth once daily. - coenzyme Q10 (COENZYME Q-10) 100 mg cap capsule Take 200 mg by mouth once daily. - fluticasone (FLONASE) 50 mcg/actuation nasal spray Use 2 Sprays in each nostril once daily. Rinse mouth after use. - COMPOUNDED PRESCRIPTION CPAP 9 cmH2O with humidification and a standard size ResMed AirFit N10 nasal mask without chin strap - acetaminophen (TYLENOL EXTRA STRENGTH) 500 mg tablet Take 2 tablets by mouth every 6 hours as needed for Pain. Take every 6 hours for first three days. Then take every 6 hours as needed. - Ascorbic Acid 500 mg cpER Take 1 Each by mouth once daily. - cholecalciferol (VITAMIN D3) 1,000 unit tab tablet Take 1,000 Units by mouth once daily. - multivitamins(MULTIPLE VITAMIN TAB) Take one(1) tablet daily. Meds Comments as of 03/28/2022: Takes Apple Cider Vinegar capsules daily. 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] 12/13/2007 Bipolar I disorder (HCC) [F31.9] PERS HEALTH HAZARD NOS [Z91.89] 12/13/2007 Tuberculin test reaction [795.5] 12/13/2007 Panic disorder without agoraphobia [F41.0] 12/13/2007 Urinary frequency [R35.0] 03/29/2009 Hyperactivity of bladder [N31.8] 05/03/2009 Routine general medical examination at [facility]*05/19/2009 12/24/2014 Class: Chronic Routine gynecological examination [Z01.419] 05/19/2009 12/24/2014 Class: Chronic Impaired fasting glucose [R73.01] 05/19/2009 Mixed hyperlipidemia [E78.2] 05/16/2011 Family history of colon cancer [Z80.0] 02/26/2014 12/24/2014 Bilateral carotid artery stenosis [I65.23] 03/01/2017 Sicca syndrome (HCC) [M35.00] 03/01/2017 Headache [R51.9] 12/06/2017 GERD (gastroesophageal reflux disease) [K21.9] 06/24/2017 Lower abdominal pain [R10.30] 06/24/2017 12/06/2017 Tachycardia [R00.0] 06/28/2017 Rectocele [N81.6] 11/14/2017 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] 11/14/2017 OAB (overactive bladder) [N32.81] 11/14/2017 Urge incontinence [N39.41] 11/14/2017 Multiple gastric polyps [K31.7] 12/06/2017 Constipation [K59.00] 01/01/2018 Incontinence of feces [R15.9] 01/01/2018 JANE (obstructive sleep apnea) [G47.33] 05/23/2018 Brain cyst [G93.0] 06/10/2019 Vertigo [R42] 06/17/2019 Atrophic vaginitis [N95.2] 08/24/2020 Nocturia [R35.1] 08/24/2020 Feeling of incomplete bladder emptying [R39.14] 08/24/2020 Shoulder strain, left, initial encounter [S46.9*07/13/2021 Neck pain on left side [M54.2] 07/13/2021 Stenosis of cerebral artery [I66.9] 03/30/2022 Cerebrovascular accident (CVA) due to occlusion*03/30/2022 Dysphagia [R13.10] 03/30/2022 Primary hypertension [I10] 03/30/2022 Right hemiparesis (HCC) [G81.91] 03/31/2022 Obesity, Class I, BMI 30-34.9 [E66.9] 04/03/2022 Type 2 diabetes mellitus without complication, *06/18/2022 Encounter Status:Closed by KATT, PRODUSER on 02/15/23[facility] 01-30-2023 NoteHNO ID: [id number] Author: Favian Doyle MA Service: ? 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 Type: Progress Notes Filed: 01/30/2023 3:17 PM Note Text: POPULATION HEALTH NAVIGATION OUTREACH Action/FYI Patient is on HCC list for below gaps and needs appt to address : G81.91 - Right hemiparesis (HCC) - [id number] Last Billed 05/04/2022 E11.9 - Type 2 diabetes mellitus without complication, without long-term current use of insulin (HCC) - [id number] Last Billed 05/24/2022 M35.00 - Sicca syndrome (HCC) - [id number] Last Billed 03/28/2022 F31.9 - Bipolar I disorder (HCC) - [id number] Last Billed 03/28/2022 Care gaps/appts to address: Well exam DILATED RETINAL EXAM URINE ALBUMIN:CREATININE RATIO MAMMOGRAM COLORECTAL CANCER SCREENING HBA1C Outcomes: Left message for patient to call me back directly to schedule. Also sent [employer] message. Patient Identified by Name and : NO Outreach Outcome/Action Unable to reach patient: Left message CENTERSONIChart message sent Did you use a PCP flex slot to schedule this appointment? N/A Reason for Outreach HCC or suspected condition Payer: Payor: [employer] MEDICARE / Plan: [employer] / Product Type: HMO / Care Gap Reviewed:: Annual Wellness visit Breast Cancer screening Colorectal Cancer Screening Diabetic Eye Exam Reminder: Reminder note to check Health Maintenance for items below Health Maintenance items due: DILATED RETINAL EXAM Never done DIABETIC FOOT EXAM Never done URINE ALBUMIN:CREATININE RATIO due on 11/15/2011 SHINGRIX VACCINE(2 of 3) due on 06/11/2014 COVID-19 VACCINE(3 - Booster for Pfizer series) due on 01/29/2021 MAMMOGRAM due on 08/05/2021 COLORECTAL CANCER SCREENING due on 07/03/2022 ADVANCE DIRECTIVE DISCUSSION due on 09/02/2022 DEPRESSION ASSESSMENT Never done HBA1C due on 09/30/2022 Navigation Signature: Favian Doyle MA January 30, 2023 3:02 [facility]05-31-2023 History of Present illness Narrative* Favian Doyle MA - 01/30/2023 3:01 PM EDT POPULATION HEALTH NAVIGATION OUTREACH Action/ Patient is on HCC list for below gaps and needs appt to address : G81.91 - Right hemiparesis (HCC) - [id number] Last Billed 05/04/2022
E11.9 - Type 2 diabetes mellitus without complication, without long-term current use of insulin (HCC) - [id number] Last Billed 05/24/2022
M35.00 - Sicca syndrome (HCC) - [id number] Last Billed 03/28/2022
F31.9 - Bipolar I disorder (HCC) - [id number] Last Billed 03/28/2022
Care gaps/appts to address: Well exam DILATED RETINAL EXAM URINE ALBUMIN:CREATININE RATIO MAMMOGRAM COLORECTAL CANCER SCREENING HBA1C Outcomes: Left message for patient to call me back directly to schedule. Also sent [employer] message. Patient Identified by Name and : NO Outreach Outcome/Action Unable to reach patient: Left message CENTERSONIChart message sent Did you use a PCP flex slot to schedule this appointment? N/A Reason for Outreach HCC or suspected condition Payer: Payor: [employer] MEDICARE / Plan: [employer] / Product Type: HMO / Care Gap Reviewed:: Annual Wellness visit Breast Cancer screening Colorectal Cancer Screening Diabetic Eye Exam Reminder: Reminder note to check Health Maintenance for items below Health Maintenance items due: DILATED RETINAL EXAM Never done DIABETIC FOOT EXAM Never done URINE ALBUMIN:CREATININE RATIO due on 11/15/2011 SHINGRIX VACCINE(2 of 3) due on 06/11/2014 COVID-19 VACCINE(3 - Booster for Pfizer series) due on 01/29/2021 MAMMOGRAM due on 08/05/2021 COLORECTAL CANCER SCREENING due on 07/03/2022 ADVANCE DIRECTIVE DISCUSSION due on 09/02/2022 DEPRESSION ASSESSMENT Never done HBA1C due on 09/30/2022 Navigation Signature: Favian Doyle MA January 30, 2023 3:02 PM [facility] NotePatient Outreach (NETNAV) SHIRA SHEN ([id number]) 1950 F NFR Date Time Provider Department 01/30/23 FAVIAN DOYLE During your visit today, we recorded the following information about you: Favian Doyle MA 01/30/2023 3:17 PM Signed POPULATION HEALTH NAVIGATION OUTREACH Action/FYI Patient is on HCC list for below gaps and needs appt to address : G81.91 - Right hemiparesis (HCC) - [id number] Last Billed 05/04/2022 E11.9 - Type 2 diabetes mellitus without complication, without long-term current use of insulin (HCC) - [id number] Last Billed 05/24/2022 M35.00 - Sicca syndrome (HCC) - [id number] Last Billed 03/28/2022 F31.9 - Bipolar I disorder (HCC) - [id number] Last Billed 03/28/2022 Care gaps/appts to address: Well exam DILATED RETINAL EXAM URINE ALBUMIN:CREATININE RATIO MAMMOGRAM COLORECTAL CANCER SCREENING HBA1C Outcomes: Left message for patient to call me back directly to schedule. Also sent [employer]t message. Patient Identified by Name and : NO Outreach Outcome/Action Unable to reach patient: Left message CENTERSONIChart message sent Did you use a PCP flex slot to schedule this appointment? N/A Reason for Outreach HCC or suspected condition Payer: Payor: [employer] MEDICARE / Plan: First Look Media / Product Type: HMO / Care Gap Reviewed:: Annual Wellness visit Breast Cancer screening Colorectal Cancer Screening Diabetic Eye Exam Reminder: Reminder note to check Health Maintenance for items below Health Maintenance items due: DILATED RETINAL EXAM Never done DIABETIC FOOT EXAM Never done URINE ALBUMIN:CREATININE RATIO due on 11/15/2011 SHINGRIX VACCINE(2 of 3) due on 06/11/2014 COVID-19 VACCINE(3 - Booster for Pfizer series) due on 01/29/2021 MAMMOGRAM due on 08/05/2021 COLORECTAL CANCER SCREENING due on 07/03/2022 ADVANCE DIRECTIVE DISCUSSION due on 09/02/2022 DEPRESSION ASSESSMENT Never done HBA1C due on 09/30/2022 Navigation Signature: Favian Doyle MA January 30, 2023 3:02 PM Allergies As of Date: 01/30/2023 Noted Allergy Reaction PRAVACHOL (PRAVASTATIN) 11/20/2010 9 - Itching Comments: November 20, 2010 -- itching without rash [id number] REDUCTASE INHIBIT*02/26/2014 9 - Itching 16 - Unknown CODEINE 03/21/2005 Comments: chest pain AND pressure DOXYCYCLINE 09/15/2018 2 - Rash Comments: Blisters in mouth LEVOFLOXACIN 05/18/2016 14 - Other: See Comments Comments: Itching. PENICILLINS 03/21/2005 2 - Rash Comments: swesameer AND albert Has used cephalosporins SULFA (SULFONAMIDE ANTIBIOTICS) 03/21/2005 Comments: uticaria Date Reviewed: 05/24/2022 Reviewed by: Sarika Back MA - Fully Assessed Reason for Visit: Population Health Navigation Outreach [3910] Cmt: [facility] Prescriptions as of 01/30/2023 - pantoprazole DR (PROTONIX) 40 mg tablet Take 40 mg by mouth twice daily. - amLODIPine (NORVASC) 2.5 mg tablet Take 1 tablet by mouth once daily. - aspirin 81 mg chewable tablet 1 tablet by ORAL/FEEDING TUBE route once daily. - atorvastatin (LIPITOR) 40 mg tablet Take 1 tablet by mouth daily at bedtime. - famotidine (PEPCID) 40 mg tablet Take 1 tablet by mouth once daily. - gabapentin (NEURONTIN) 300 mg capsule Take 1 capsule by mouth three times daily for 90 days. - propranolol ER (INDERAL LA) 120 mg 24 hr capsule Take 1 capsule by mouth once daily. - sertraline (ZOLOFT) 25 mg tablet Take 25 mg by mouth twice daily. - montelukast (SINGULAIR) 10 mg tablet Take 1 tablet by mouth daily at bedtime. - cranberry fruit extract (CRANBERRY ORAL) Take 1 tablet by mouth once daily. - coenzyme Q10 (COENZYME Q-10) 100 mg cap capsule Take 200 mg by mouth once daily. - fluticasone (FLONASE) 50 mcg/actuation nasal spray Use 2 Sprays in each nostril once daily. Rinse mouth after use. - COMPOUNDED PRESCRIPTION CPAP 9 cmH2O with humidification and a standard size ResMed AirFit N10 nasal mask without chin strap - acetaminophen (TYLENOL EXTRA STRENGTH) 500 mg tablet Take 2 tablets by mouth every 6 hours as needed for Pain. Take every 6 hours for first three days. Then take every 6 hours as needed. - Ascorbic Acid 500 mg cpER Take 1 Each by mouth once daily. - cholecalciferol (VITAMIN D3) 1,000 unit tab tablet Take 1,000 Units by mouth once daily. - multivitamins(MULTIPLE VITAMIN TAB) Take one(1) tablet daily. Meds Comments as of 03/28/2022: Takes Apple Cider Vinegar capsules daily. 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] 12/13/2007 Bipolar I disorder (HCC) [F31.9] PERS HX HEALTH HAZARD NOS [Z91.89] 12/13/2007 Tuberculin test reaction [795.5] 12/13/2007 Panic disorder without agoraphobia [F41.0] 12/13/2007 Urinary frequency [R35.0] 03/29/2009 Hyperactivity of bladder [N31.8] 05/03/2009 Routine general medical examination at [facility]*09/ (more content not included)...[facility]04-11-2023 NotePatient Outreach (INTMMN) SHIRA SHEN ([id number]) 1950 F NFR Date Time Provider Department 12/11/22 EULALIO SYKES INTMMMichelet During your visit today, we recorded the following information about you: Allergies As of Date: 12/11/2022 Noted Allergy Reaction PRAVACHOL (PRAVASTATIN) 11/20/2010 9 - Itching Comments: November 20, 2010 -- itching without rash [id number] REDUCTASE INHIBIT*02/26/2014 9 - Itching 16 - Unknown CODEINE 03/21/2005 Comments: chest pain AND pressure DOXYCYCLINE 09/15/2018 2 - Rash Comments: Blisters in mouth LEVOFLOXACIN 05/18/2016 14 - Other: See Comments Comments: Itching. PENICILLINS 03/21/2005 2 - Rash Comments: Richie Has used cephalosporins SULFA (SULFONAMIDE ANTIBIOTICS) 03/21/2005 Comments: uticaria Date Reviewed: 05/24/2022 Reviewed by: Sarika Back MA - Fully Assessed Visit Diagnosis:Type 2 diabetes mellitus without complication, without long-term current use of insulin (HCC) [E11.9] Order(s):ALBUMIN/CREAT RATIO RND UR [SQUACR] Order #: [id number] FUTURE HGB A1C [DOKBW5I] Order #: [id number] FUTURE Prescriptions as of 12/14/2022 - pantoprazole DR (PROTONIX) 40 mg tablet Take 40 mg by mouth twice daily. - amLODIPine (NORVASC) 2.5 mg tablet Take 1 tablet by mouth once daily. - aspirin 81 mg chewable tablet 1 tablet by ORAL/FEEDING TUBE route once daily. - atorvastatin (LIPITOR) 40 mg tablet Take 1 tablet by mouth daily at bedtime. - famotidine (PEPCID) 40 mg tablet Take 1 tablet by mouth once daily. - gabapentin (NEURONTIN) 300 mg capsule Take 1 capsule by mouth three times daily for 90 days. - propranolol ER (INDERAL LA) 120 mg 24 hr capsule Take 1 capsule by mouth once daily. - sertraline (ZOLOFT) 25 mg tablet Take 25 mg by mouth twice daily. - montelukast (SINGULAIR) 10 mg tablet Take 1 tablet by mouth daily at bedtime. - cranberry fruit extract (CRANBERRY ORAL) Take 1 tablet by mouth once daily. - coenzyme Q10 (COENZYME Q-10) 100 mg cap capsule Take 200 mg by mouth once daily. - fluticasone (FLONASE) 50 mcg/actuation nasal spray Use 2 Sprays in each nostril once daily. Rinse mouth after use. - COMPOUNDED PRESCRIPTION CPAP 9 cmH2O with humidification and a standard size ResMed AirFit N10 nasal mask without chin strap - acetaminophen (TYLENOL EXTRA STRENGTH) 500 mg tablet Take 2 tablets by mouth every 6 hours as needed for Pain. Take every 6 hours for first three days. Then take every 6 hours as needed. - Ascorbic Acid 500 mg cpER Take 1 Each by mouth once daily. - cholecalciferol (VITAMIN D3) 1,000 unit tab tablet Take 1,000 Units by mouth once daily. - multivitamins(MULTIPLE VITAMIN TAB) Take one(1) tablet daily. Meds Comments as of 03/28/2022: Takes Apple Cider Vinegar capsules daily. 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] 12/13/2007 Bipolar I disorder (HCC) [F31.9] PERS HX HEALTH HAZARD NOS [Z91.89] 12/13/2007 Tuberculin test reaction [795.5] 12/13/2007 Panic disorder without agoraphobia [F41.0] 12/13/2007 Urinary frequency [R35.0] 03/29/2009 Hyperactivity of bladder [N31.8] 05/03/2009 Routine general medical examination at [facility]05/19/2009 12/24/2014 Class: Chronic Routine gynecological examination [Z01.419] 05/19/2009 12/24/2014 Class: Chronic Impaired fasting glucose [R73.01] 05/19/2009 Mixed hyperlipidemia [E78.2] 05/16/2011 Family history of colon cancer [Z80.0] 02/26/2014 12/24/2014 Bilateral carotid artery stenosis [I65.23] 03/01/2017 Sicca syndrome (HCC) [M35.00] 03/01/2017 Headache [R51.9] 12/06/2017 GERD (gastroesophageal reflux disease) [K21.9] 06/24/2017 Lower abdominal pain [R10.30] 06/24/2017 12/06/2017 Tachycardia [R00.0] 06/28/2017 Rectocele [N81.6] 11/14/2017 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] 11/14/2017 OAB (overactive bladder) [N32.81] 11/14/2017 Urge incontinence [N39.41] 11/14/2017 Multiple gastric polyps [K31.7] 12/06/2017 Constipation [K59.00] 01/01/2018 Incontinence of feces [R15.9] 01/01/2018 JANE (obstructive sleep apnea) [G47.33] 05/23/2018 Brain cyst [G93.0] 06/10/2019 Vertigo [R42] 06/17/2019 Atrophic vaginitis [N95.2] 08/24/2020 Nocturia [R35.1] 08/24/2020 Feeling of incomplete bladder emptying [R39.14] 08/24/2020 Shoulder strain, left, initial encounter [S46.9*07/13/2021 Neck pain on left side [M54.2] 07/13/2021 Stenosis of cerebral artery [I66.9] 03/30/2022 Cerebrovascular accident (CVA) due to occlusion*03/30/2022 Dysphagia [R13.10] 03/30/2022 Primary hypertension [I10] 03/30/2022 Right hemiparesis (HCC) [G81.91] 03/31/2022 Obesity, Class I, BMI 30-34.9 [E66.9] 04/03/2022 Type 2 diabetes mellitus without complication, *06/18/2022 Encounter Status:Closed by MARAH BOLIVAR on 12/14/22[facility] 11-08-2022 NotePatient Outreach (NETNAV) SHIRA SHEN ([id number]) 1950 F NFR Date Time Provider Department 11/08/22 FAVIAN DOYLE During your visit today, we recorded the following information about you: Favian Doyle MA 11/08/2022 11:32 AM Signed POPULATION HEALTH NAVIGATION OUTREACH Action/ [facility] is on [facility] list for below gaps and needs appt to address : G81.91 - Right hemiparesis (HCC) - [id number] Last Billed 05/04/2022 E11.9 - Type 2 diabetes mellitus without complication, without long-term current use of insulin (HCC) - [id number] Last Billed 05/24/2022 M35.00 - Sicca syndrome (HCC) - [id number] Last Billed 03/28/2022 F31.9 - Bipolar I disorder (HCC) - [id number] Last Billed 03/28/2022 Care gaps/appts to address: Well exam DILATED RETINAL EXAM URINE ALBUMIN:CREATININE RATIO MAMMOGRAM INFLUENZA(1) COLORECTAL CANCER SCREENING HBA1C Outcomes: Left message for patient to call me back directly to schedule. Also sent [employer]hart message. Patient Identified by Name and : NO Outreach Outcome/Action Unable to reach patient: Left message MyChart message sent Did you use a PCP flex slot to schedule this appointment? N/A Reason for Outreach HCC or suspected condition Payer: Payor: HUMANA MEDICARE / Plan: First Look Media / Product Type: HMO / Care Gap Reviewed:: Annual Wellness visit Breast Cancer screening Colorectal Cancer Screening Diabetic Eye Exam HBA1C Nephropathy (Albumin/Creatinine) Urine Flu Vaccine Reminder: Reminder note to check Health Maintenance for items below Health Maintenance items due: DILATED RETINAL EXAM Never done DIABETIC FOOT EXAM Never done URINE ALBUMIN:CREATININE RATIO due on 11/15/2011 SHINGRIX VACCINE(2 of 3) due on 06/11/2014 COVID-19 VACCINE(3 - Booster for Pfizer series) due on 01/29/2021 MAMMOGRAM due on 08/05/2021 INFLUENZA(1) due on 05/03/2022 COLORECTAL CANCER SCREENING due on 07/03/2022 ADVANCE DIRECTIVE DISCUSSION due on 09/02/2022 DEPRESSION ASSESSMENT Never done HBA1C due on 09/30/2022 Navigation Signature: Favian Doyle MA November 08, 2022 11:13 AM Allergies As of Date: 11/08/2022 Noted Allergy Reaction PRAVACHOL (PRAVASTATIN) 11/20/2010 9 - Itching Comments: November 20, 2010 -- itching without rash HTYNPPI-XMI-DHS REDUCTASE INHIBIT*02/26/2014 9 - Itching 16 - Unknown CODEINE 03/21/2005 Comments: chest pain AND pressure DOXYCYCLINE 09/15/2018 2 - Rash Comments: Blisters in mouth LEVOFLOXACIN 05/18/2016 14 - Other: See Comments Comments: Itching. PENICILLINS 03/21/2005 2 - Rash Comments: swell AND uticaria Has used cephalosporins SULFA (SULFONAMIDE ANTIBIOTICS) 03/21/2005 Comments: uticaria Date Reviewed: 05/24/2022 Reviewed by: Sarika Back MA - Fully Assessed Reason for Visit: Population Health Navigation Outreach [3910] Cmt: HCC Prescriptions as of 11/08/2022 - pantoprazole DR (PROTONIX) 40 mg tablet Take 40 mg by mouth twice daily. - amLODIPine (NORVASC) 2.5 mg tablet Take 1 tablet by mouth once daily. - aspirin 81 mg chewable tablet 1 tablet by ORAL/FEEDING TUBE route once daily. - atorvastatin (LIPITOR) 40 mg tablet Take 1 tablet by mouth daily at bedtime. - famotidine (PEPCID) 40 mg tablet Take 1 tablet by mouth once daily. - gabapentin (NEURONTIN) 300 mg capsule Take 1 capsule by mouth three times daily for 90 days. - propranolol ER (INDERAL LA) 120 mg 24 hr capsule Take 1 capsule by mouth once daily. - sertraline (ZOLOFT) 25 mg tablet Take 25 mg by mouth twice daily. - montelukast (SINGULAIR) 10 mg tablet Take 1 tablet by mouth daily at bedtime. - cranberry fruit extract (CRANBERRY ORAL) Take 1 tablet by mouth once daily. - coenzyme Q10 (COENZYME Q-10) 100 mg cap capsule Take 200 mg by mouth once daily. - fluticasone (FLONASE) 50 mcg/actuation nasal spray Use 2 Sprays in each nostril once daily. Rinse mouth after use. - COMPOUNDED PRESCRIPTION CPAP 9 cmH2O with humidification and a standard size ResMed AirFit N10 nasal mask without chin strap - acetaminophen (TYLENOL EXTRA STRENGTH) 500 mg tablet Take 2 tablets by mouth every 6 hours as needed for Pain. Take every 6 hours for first three days. Then take every 6 hours as needed. - Ascorbic Acid 500 mg cpER Take 1 Each by mouth once daily. - cholecalciferol (VITAMIN D3) 1,000 unit tab tablet Take 1,000 Units by mouth once daily. - multivitamins(MULTIPLE VITAMIN TAB) Take one(1) tablet daily. Meds Comments as of 03/28/2022: Takes Apple Cider Vinegar capsules daily. 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 Type: Progress Notes Filed: 11/08/2022 11:32 AM Note Text: POPULATION HEALTH NAVIGATION OUTREACH Action/FYI Patient is on HCC list for below gaps and needs appt to address : G81.91 - Right hemiparesis (HCC) - [id number] Last Billed 05/04/2022 E11.9 - Type 2 diabetes mellitus without complication, without long-term current use of insulin (HCC) - [id number] Last Billed 05/24/2022 M35.00 - Sicca syndrome (HCC) - [id number] Last Billed 03/28/2022 F31.9 - Bipolar I disorder (HCC) - [id number] Last Billed 03/28/2022 Care gaps/appts to address: Well exam DILATED RETINAL EXAM URINE ALBUMIN:CREATININE RATIO MAMMOGRAM INFLUENZA(1) COLORECTAL CANCER SCREENING HBA1C Outcomes: Left message for patient to call me back directly to schedule. Also sent [employer] message. Patient Identified by Name and : NO Outreach Outcome/Action Unable to reach patient: Left message CENTERSONIChart message sent Did you use a PCP flex slot to schedule this appointment? N/A Reason for Outreach HCC or suspected condition Payer: Payor: HUMANA MEDICARE / Plan: First Look Media / Product Type: HMO / Care Gap Reviewed:: Annual Wellness visit Breast Cancer screening Colorectal Cancer Screening Diabetic Eye Exam HBA1C Nephropathy (Albumin/Creatinine) Urine Flu Vaccine Reminder: Reminder note to check Health Maintenance for items below Health Maintenance items due: DILATED RETINAL EXAM Never done DIABETIC FOOT EXAM Never done URINE ALBUMIN:CREATININE RATIO due on 11/15/2011 SHINGRIX VACCINE(2 of 3) due on 06/11/2014 COVID-19 VACCINE(3 - Booster for Pfizer series) due on 01/29/2021 MAMMOGRAM due on 08/05/2021 INFLUENZA(1) due on 05/03/2022 COLORECTAL CANCER SCREENING due on 07/03/2022 ADVANCE DIRECTIVE DISCUSSION due on 09/02/2022 DEPRESSION ASSESSMENT Never done HBA1C due on 09/30/2022 Navigation Signature: Favian Doyle MA November 08, 2022 11:13 [facility]03-09-2023 History of Present illness Narrative* Favian Doyle MA - 11/08/2022 11:02 AM EST POPULATION HEALTH NAVIGATION OUTREACH Action/FYI Patient is on HCC list for below gaps and needs appt to address : G81.91 - Right hemiparesis (HCC) - [id number] Last Billed 05/04/2022
E11.9 - Type 2 diabetes mellitus without complication, without long-term current use of insulin (HCC) - [id number] Last Billed 05/24/2022
M35.00 - Sicca syndrome (HCC) - [id number] Last Billed 03/28/2022
F31.9 - Bipolar I disorder (HCC) - [id number] Last Billed 03/28/2022
Care gaps/appts to address: Well exam DILATED RETINAL EXAM URINE ALBUMIN:CREATININE RATIO MAMMOGRAM INFLUENZA(1) COLORECTAL CANCER SCREENING HBA1C Outcomes: Left message for patient to call me back directly to schedule. Also sent [email or web address] message. Patient Identified by Name and : NO Outreach Outcome/Action Unable to reach patient: Left message CENTERSONIChart message sent Did you use a PCP flex slot to schedule this appointment? N/A Reason for Outreach HCC or suspected condition Payer: Payor: HUMANA MEDICARE / Plan: First Look Media / Product Type: HMO / Care Gap Reviewed:: Annual Wellness visit Breast Cancer screening Colorectal Cancer Screening Diabetic Eye Exam HBA1C Nephropathy (Albumin/Creatinine) Urine Flu Vaccine Reminder: Reminder note to check Health Maintenance for items below Health Maintenance items due: DILATED RETINAL EXAM Never done DIABETIC FOOT EXAM Never done URINE ALBUMIN:CREATININE RATIO due on 11/15/2011 SHINGRIX VACCINE(2 of 3) due on 06/11/2014 COVID-19 VACCINE(3 - Booster for Pfizer series) due on 01/29/2021 MAMMOGRAM due on 08/05/2021 INFLUENZA(1) due on 05/03/2022 COLORECTAL CANCER SCREENING due on 07/03/2022 ADVANCE DIRECTIVE DISCUSSION due on 09/02/2022 DEPRESSION ASSESSMENT Never done HBA1C due on 09/30/2022 Navigation Signature: Favian Doyle MA November 08, 2022 11:13 AM [facility] Procedure [facility]09-22-2022 NoteHNO ID: [id number] Author: Segundo Roberts, DO Service: ? Author Type: Physician Type: Progress Notes Filed: 06/18/2022 9:53 PM Note Text: [facility] Established Visit Consultation is requested by: SELF PCP: Eulalio Sykes [address] [place] [address] CEREBROVASCULAR HISTORY Shira Shen is a 72 year old right-handed female who presents for follow-up evaluation for recent stroke and hospitalization 03/30/2022-04/03/2022. Reason for Visit: stroke Date of Last Event: 03/29/2022 History of Event: Patient reports she Antiplatelets/Anticoagulants: Aspirin and Clopidogrel Statins: Atorvastatin Side effects: No Refills needed: No Residual Deficits: Cognitive impairments, Right-sided weakness and Right-sided numbness Current PT/OT/ST: Oupatient with physical therapy and Oupatient with speech therapy Initial Discharge Disposition: IRF Current Living Situation: Home with spouse Current use of a mobility aid for walking/getting around: Walker Questions for Visit: Concerned about what to do next regarding her recent stroke Do you have any planned upcoming surgeries or dental procedures? No She presents today alone to clinic for follow-up after her recent hospitalization for acute stroke. She has a significant past medical history of hypertension, hyperlipidemia, obstructive sleep apnea, and reportedly prediabetes.She was discharged to acute rehab facility after her hospital stay and later discharged to home with outpatient physical and speech therapy after 2 weeks. She reports persistent right arm and leg weakness/numbness. She reports challenges with attending her therapy visits due to transportation as she is not driving and her is working. She has had to cancel appointments because of this. She is currently using wheeled walker for long distances but otherwise at home is not using any assist devices. She denies any recent injuries or falls since returning home. She notes increased fatigue and frequent napping. She attributes this to her history of sleep apnea and ill fitting mask. She recently underwent repeat sleep study and is awaiting to follow with sleep medicine specialist. She remains on aspirin and clopidegrol without reported bleeding complications. She was previously on daily aspirin regimen prior to stroke. She continues on atorvastatin 40 mg daily without ill effects. She reports a history of statin intolerance with prior itching but is tolerating without side effects. She reports difficulty managing her blood pressure prior to her stroke and notes this has improved since medication was added during her rehab stay. PAST MEDICAL HISTORY Diagnosis Date Bipolar I disorder, most recent episode (or current) unspecified Detrusor sphincter dyssynergia Headache has seen neurology and had mri, mra and mrv. HLD (hyperlipidemia) Major depressive disorder, single episode, unspecified Unspecified personal history presenting hazards to health PAST SURGICAL HISTORY Procedure Laterality Date CHOLECYSTECTOMY 1974 COLONOSCOPY 2001? COLONOSCOPY FLX DX W/COLLJ SPEC WHEN PFRMD 05/14/2014 Colonoscopy COLONOSCOPY FLX DX W/COLLJ SPEC WHEN PFRMD 07/03/2017 Colonoscopy ESOPHAGOGASTRODUODENOSCOPY TRANSORAL DIAGNOSTIC 07/03/2017 EGD ESOPHAGOGASTRODUODENOSCOPY TRANSORAL DIAGNOSTIC 06/22/2019 EGD PAST SURGICAL HISTORY OF 06/02/2017 sinus surgery PAST SURGICAL HISTORY OF 04/01/2018 uterine prolapse TOTAL ABDOMINAL HYSTERECT W/WO RMVL TUBE OVARY 1986 TAHBSO (benign), ovarian cysts, appendectomy FAMILY HISTORY Problem Relation Age of Onset Colon Cancer Mother Allergies Mother Heart disease Mother Diabetes Maternal Grandmother Coronary Artery Disease Maternal Grandmother Coronary Artery Disease Maternal Grandfather Coronary Artery Disease Father Hypertension Father Social History Tobacco Use Smoking status: Never Smokeless tobacco: Never Substance Use Topics Alcohol use: No Drug use: No MEDICATIONS Current Outpatient Medications Medication Sig pantoprazole DR (PROTONIX) 40 mg tablet Take 40 mg by mouth twice daily. amLODIPine (NORVASC) 2.5 mg tablet Take 1 tablet by mouth once daily. aspirin 81 mg chewable tablet 1 tablet by ORAL/FEEDING TUBE route once daily. atorvastatin (LIPITOR) 40 mg tablet Take 1 tablet by mouth daily at bedtime. famotidine (PEPCID) 40 mg tablet Take 1 tablet by mouth once daily. gabapentin (NEURONTIN) 300 mg capsule Take 1 capsule by mouth three times daily for 90 days. (Patient taking differently: Take 400 mg by mouth. Take one in the morning, one in the afternoon, and take 2 at bedtime.) propranolol ER (INDERAL LA) 120 mg 24 hr capsule Take 1 capsule by mouth once daily. sertraline (ZOLOFT) 25 mg tablet Take 25 mg by mouth twice daily. montelukast (SINGULAIR) 10 mg tablet Take 1 tablet by mouth daily at bedtime. cran (more content not included)...[facility]09-22-2022 Instructions* Patient Instructions* Sheila Smith APRN.MOLD BREAKER - 05/24/2022 11:30 AM EDT Regarding your visit with Dr. 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 See LDL-Chol, Direct. Diabetes: Hba1c goal < 7.0 Most recent Hba1c: Hemoglobin A1C (%) Date Value 03/30/2022 6.0 09/25/2021 6.3 Recommendations: Continue daily aspirin lifelong for secondary stroke prevention Optimization of stroke risk factors High blood pressure- continue currently prescribed medications and home blood pressure monitoring High cholesterol- continue atorvastatin and monitor tolerance, repeat cholesterol blood work 3 months from starting medication (around July 02, 2022) Diabetes- continue dietary modifications and monitoring by PCP Contact [facility] therapy location to inquire about transportation services to assist in getting to therapy appointments Continue follow-up with sleep medicine for sleep apnea a Regular follow up with primary care doctor for health maintenance -Assist ensuring blood pressure and cholesterol are at goal -Screen and manage diabetes Lifestyle modification -- Establish goals -Diet -Regular Exercise as discussed -Establish weight goals with primary care doctor Additional stroke reduction measures and stroke warning signs are listed below. Return to see [facility] in July 2022 Please do not hesitate to call if you have any questions Segundo Roberts, [facility] [address] [place] [address] / [place] [address] Office: [phone] ~~~~~~~~~~~~~~~~~~~~~~~~~~~~~~~~~~~~~~~~~~~~~~~~~~~~~~~~~~~~~~~~~~~~~~~~ Stroke Signs and Symptoms: *Stroke is a medical emergency. Know the warning signs of stroke: Sudden numbness or weakness of the face, arm or leg, especially on one side of the body Sudden confusion, trouble speaking, or understanding Sudden trouble seeing in one eye, or both eyes Sudden trouble walking, dizziness, loss of balance, or coordination Sudden severe headache with no known cause *If you, or someone with you, has one or more of these signs, don't delay! Immediately call 911, orthe emergency medical services (EMS) number so an ambulance can be sent for you. Also, check the time so that you will know when the symptoms first appeared. It is very important to take immediate action, every second counts. Medical treatment may be available if action is taken early enough. ~~~~~~~~~~~~~~~~~~~~~~~~~~~~~~~~~~~~~~~~~~~~~~~~~~~~~~~~~~~~~~~~~~~~~~~~ General Guidelines to Help Reduce Risk of Recurrent Stroke Blood Pressure Management: Blood Pressure reduction is recommended for both prevention of recurrent stroke and prevention of other vascular events in persons who have had an ischemic stroke or TIA and are beyond the first 24 hours. Several lifestyle modifications have been associated with BP reduction and are a reasonable part ofa comprehensive antihypertensive therapy -These modifications include: - salt restriction - weight loss - consumption of a diet rich in fruits, vegetables, and low-fat dairy products - Regular aerobic physical activity - Limited alcohol consumption Goal: Prehypertension (systolic BP of 120-139 mm Hg or diastolic BP of 80-89 mm Hg): Perform annual BP screening and lifestyle modifications Hypertension: Combine medications with above lifestyle modifications to reach your goal blood pressure as defined above. Monitor your blood pressure at home regularly to ensure you are reaching your goals Cholesterol and Lipid Management - Statin therapy with intensive lipid-lowering effects is recommended to reduce risk of stroke and cardiovascular events among patients with ischemic stroke or TIA who have evidence of atherosclerosis Diet: - Reduced sodium and increased potassium intake; DASH-style diet rich in fruits and vegetables - Consider Mediterranean diet supplemented with nuts Smoking and Tobacco Use: - Strongly recommend smoking and tobacco use cessation to reduce risk of stroke. - Counseling, nicotine products, and oral smoking cessation medications are effective for helping smokers quit and can be provided if needed. Alcohol Consumption: - Heavy drinkers should eliminate or reduce their consumption of alcohol. - Persons who continue drinking the following may be reasonable: - less than or equal to 2 drinks/day for men - less than or equal to 1 drink/day for non women Exercise - If capable of engaging in physical activity, at least 40 minutes of moderate to vigorous intensity physical exercise, typically defined as vigorous activity sufficient to break a sweat or noticeably raise heart rate, 3-4 days a week (eg, walking briskly, using an exercise bicycle) may be considered to reduce the risk factors and comorbid conditions that increase the likelihood of recurrent stroke - If disability after ischemic stroke, supervision by a healthcare professional, such as a physicaltherapist or cardiac rehabilitation professional, at least on initiation of an exercise regimen, may be considered Adopted from the [place] [employer] Attack : A Guideline for Healthcare Professionals Fromthe [place] [employer] Guidelines for the Prevention of Stroke in Patients With Stroke or Transient Ischemic - 2013 documented in this [facility]09-22-2022 History of Present illness Narrative* Segundo Roberts DO - 05/24/2022 10:27 AM EDT [facility] Established Visit Consultation is requested by: SELF PCP: Eulalio Sykes [address] [place] [address] CEREBROVASCULAR HISTORY Shira Shen is a 72 year old right-handed female who presents for follow-up evaluation for recentstroke and hospitalization 03/30/2022-04/03/2022. Reason for Visit: stroke Date of Last Event: 03/29/2022 History of Event: Patient reports she Antiplatelets/Anticoagulants: Aspirin and Clopidogrel Statins: Atorvastatin Side effects: No Refills needed: No Residual Deficits: Cognitive impairments, Right-sided weakness and Right-sided numbness Current PT/OT/ST: Oupatient with physical therapy and Oupatient with speech therapy Initial Discharge Disposition: IRF Current Living Situation: Home with spouse Current use of a mobility aid for walking/getting around: Walker Questions for Visit: Concerned about what to do next regarding her recent stroke Do you have any planned upcoming surgeries or dental procedures? No She presents today alone to clinic for follow-up after her recent hospitalization for acute stroke.She has a significant past medical history of hypertension, hyperlipidemia, obstructive sleep apnea, and reportedly prediabetes.She was discharged to acute rehab facility after her hospital stay and later discharged to home with outpatient physical and speech therapy after 2 weeks. She reports persistent right arm and leg weakness/numbness. She reports challenges with attending her therapy visitsdue to transportation as she is not driving and her is working. She has had to cancel appointments because of this. She is currently using wheeled walker for long distances but otherwise at home is not using any assist devices. She denies any recent injuries or falls since returning home. She notes increased fatigue and frequent napping. She attributes this to her history of sleep apnea and ill fitting mask. She recently underwent repeat sleep study and is awaiting to follow with sleep medicine specialist. She remains on aspirin and clopidegrol without reported bleeding complications. She was previously on daily aspirin regimen prior to stroke. She continues on atorvastatin 40 mg daily without ill effects. She reports a history of statin intolerance with prior itching but is tolerating without side effects. She reports difficulty managing her blood pressure prior to her stroke and notes this has improved since medication was added during her rehab stay. PAST MEDICAL HISTORY Diagnosis Date Bipolar I disorder, most recent episode (or current) unspecified Detrusor sphincter dyssynergia Headache has seen neurology and had mri, mra and mrv. HLD (hyperlipidemia) Major depressive disorder, single episode, unspecified Unspecified personal history presenting hazards to health PAST SURGICAL HISTORY Procedure Laterality Date CHOLECYSTECTOMY 1975 COLONOSCOPY 2001? COLONOSCOPY FLX DX W/COLLJ SPEC WHEN PFRMD 05/14/2014 Colonoscopy COLONOSCOPY FLX DX W/COLLJ SPEC WHEN PFRMD 07/03/2017 Colonoscopy ESOPHAGOGASTRODUODENOSCOPY TRANSORAL DIAGNOSTIC 07/03/2017 EGD ESOPHAGOGASTRODUODENOSCOPY TRANSORAL DIAGNOSTIC 06/22/2019 EGD PAST SURGICAL HISTORY OF 06/02/2017 sinus surgery PAST SURGICAL HISTORY OF 04/01/2018 uterine prolapse TOTAL ABDOMINAL HYSTERECT W/WO RMVL TUBE OVARY 1986 TAHBSO (benign), ovarian cysts, appendectomy FAMILY HISTORY Problem Relation Age of Onset Colon Cancer Mother Allergies Mother Heart disease Mother Diabetes Maternal Grandmother Coronary Artery Disease Maternal Grandmother Coronary Artery Disease Maternal Grandfather Coronary Artery Disease Father Hypertension Father Social History Tobacco Use Smoking status: Never Smokeless tobacco: Never Substance Use Topics Alcohol use: No Drug use: No MEDICATIONS Current Outpatient Medications Medication Sig pantoprazole DR (PROTONIX) 40 mg tablet Take 40 mg by mouth twice daily. amLODIPine (NORVASC) 2.5 mg tablet Take 1 tablet by mouth once daily. aspirin 81 mg chewable tablet 1 tablet by ORAL/FEEDING TUBE route once daily. atorvastatin (LIPITOR) 40 mg tablet Take 1 tablet by mouth daily at bedtime. famotidine (PEPCID) 40 mg tablet Take 1 tablet by mouth once daily. gabapentin (NEURONTIN) 300 mg capsule Take 1 capsule by mouth three times daily for 90 days. (Patient taking differently: Take 400 mg by mouth. Take one in the morning, one in the afternoon, and take2 at bedtime.) propranolol ER (INDERAL LA) 120 mg 24 hr capsule Take 1 capsule by mouth once daily. sertraline (ZOLOFT) 25 mg tablet Take 25 mg by mouth twice daily. montelukast (SINGULAIR) 10 mg tablet Take 1 tablet by mouth daily at bedtime. cranberry fruit extract (CRANBERRY ORAL) Take 1 tablet by mouth once daily. coenzyme Q10 (COENZYME Q-10) 100 mg cap capsule Take 200 mg by mouth once daily. fluticasone (FLONASE) 50 mcg/actuation nasal spray Use 2 Sprays in each nostril once daily. Rinse mouth after use. COMPOUNDED PRESCRIPTION CPAP 9 cmH2O with humidification and a standard size ResMed AirFit N10 nasal mask without chin strap acetaminophen (TYLENOL EXTRA STRENGTH) 500 mg tablet Take 2 tablets by mouth every 6 hours as needed for Pain. Take every 6 hours for first three days. Then take every 6 hours as needed. Ascorbic Acid 500 mg cpER Take 1 Each by mouth once daily. cholecalciferol (VITAMIN D3) 1,000 unit tab tablet Take 1,000 Units by mouth once daily. multivitamins(MULTIPLE VITAMIN TAB) Take one(1) tablet daily. No current facility-administered medications for this visit. ALLERGIES ALLERGIES Allergen Reactions Pravachol [Pravasta* Itching November 20, 2010 -- itching without rash Bbilzeq-Dvh-Sqn Red* Itching, Unknown Codeine chest pain & pressure Doxycycline Rash Blisters in mouth Levofloxacin Other: See Comments Itching. Penicillins Rash swell & uticaria Has used cephalosporins Sulfa (Sulfonamide * uticaria PHYSICAL EXAMINATION BP 125/60 (BP Site: Right Arm, BP Position: Sitting, BP Cuff Size: Large Adult) Pulse 62 Temp 36.4 C (97.5 F) (Temporal) Resp 13 Ht 162.6 cm (5' 4) Wt 85.7 kg (189 lb) SpO2 99% BMI 32.44 kg/m General: Well-developed, well-nourished, in no acute distress. HEENT: Normocephalic, atraumatic. Sclerae anicteric. Lungs: Respirations even and unlabored, on room air. Extremities: No edema, cyanosis, or clubbing. Skin: No rash or ecchymoses. Neurological: Awake, alert, oriented to person, place, and time. Speech fluent, no dysarthria. Goodattention and insight into illness. Cranial Nerves: PERRL, extraocular movements intact without nystagmus. Visual brown grossly intact. Facial sensation decreased on the right. Mildly decreased nasolabial fold on the right. Tongue midline. Shoulder shrug symmetric. Motor: Normal bulk and tone. Strength 5/5 on the left, 4/5 RUE and RLE. No pronator drift or tremor. Sensation: Decreased to light touch in right upper and lower extremity. Coordination: [id number] and [id number] with dysmetria on the right side. Gait: Ambulates easily into the office with use of wheeled walker. LABS Cholesterol: Cholesterol, Total (mg/dL) Date Value 03/30/2022 259 03/25/2021 234 LDL Cholesterol (mg/dL) Date Value 03/30/2022 155 03/25/2021 Unable to calculate due to increased Triglycerides. See LDL-Chol, Direct. HDL Cholesterol (mg/dL) Date Value 03/30/2022 33 03/25/2021 33 Triglyceride (mg/dL) Date Value 03/30/2022 356 03/25/2021 435 Diabetes: Hemoglobin A1C (%) Date Value 03/30/2022 6.0 09/25/2021 6.3 IMAGING MRI brain (03/31/2022): Acute left thalamocapsular infarct. No intracranial hemorrhage. Patient Entered Questionnaires PROMIS/NeuroQoL Score Percentiles Physical Health 05/22/2022 01/31/2022 12/19/2021 Physical Function Percentile 4 31 8 Sleep Percentile 3 21* 4 Fatigue Percentile 2 31 3 Pain Interference Percentile 8 10 1 PROMIS SOCIAL ROLE SCORE 05/22/2022 01/31/2022 12/19/2021 Social Role Satisfaction Percentile 4 16* 5 Mental Health 05/22/2022 NeuroQol Cognitive Function Percentile 4 General Self-Efficacy Percentile 1 PROMIS Global Health Scale 05/02/2022 01/31/2022 11/08/2021 Physical Health Percentile 7 7 2 Mental Health Percentile 13 19* 19* Percentiles provide an indication of how a patient's score ranks in relation to the [place] general population. > 31st percentile is within normal limits or better * < 31st percentile is at least SD worse than population, which may be clinically relevant < 16th percentile is at least 1 SD worse than population and warrants attention Depression Screening: PHQ-9 12/19/2021 01/31/2022 05/22/2022 Score 12 2 8 Self-Harm Response 0 0 0 PHQ-9 Scores: PHQ-9 Self-Harm (Item 9) Response: 0 - 9 No to Mild depression 0 - Not at all 10 - 14 Moderate depression 1 - Several Days > 15 Severe depression 2 - More than half the days 3 - Nearly every day Stroke Mechanism and Scales Ischemic or TIA: Ischemic Stroke TOAST Mechanism (CCF-MODIFIED): Small-Vessel Occlusion ([place]) Modified [place] Score: Score: 3 NIH Stroke Scale: LOC: 0 LOC Questions: 0 LOC Commands: 0 LOC Normal Gaze: 0 Visual Brown: 0 Facial Palsy: 0 Motor Left Arm: 0 Motor Right Arm: 0 Motor Left Le Motor Right Le Limb Ataxia: 1 Sensory: 1 Language: 0 Dysarthria: 0 Extinction/Neglect: 0 Total Daily NIHSS: 2 Stroke Mechanism 03/30/2022 Ischemic Stroke or TIA Ischemic Stroke TOAST Mechanism (CCF-MODIFIED) Stroke of Undetermined Etiology Stroke of Undetermined etiology Incomplete Evaluation IMPRESSION 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 See LDL-Chol, Direct. Diabetes: Hba1c goal < 7.0 Most recent Hba1c: Hemoglobin A1C (%) Date Value 03/30/2022 6.0 09/25/2021 6.3 PLAN Continue daily aspirin lifelong for secondary stroke prevention - Discontinue clopidogrel (Plavix) 75 mg daily Optimization of stroke risk factors - High blood pressure- continue currently prescribed medications and home blood pressure monitoring - High cholesterol- continue atorvastatin and monitor tolerance to medication, repeat cholesterol blood work 3 months from starting medication (around July 02, 2022) - Diabetes- continue dietary modifications and monitoring by PCP Contact [facility] location to inquire about transportation services to assist in getting to therapy appointments Continue follow-up with sleep medicine for sleep apnea Regular follow up with primary care doctor for health maintenance - Assist ensuring blood pressure and cholesterol are at goal - Screen and manage diabetes Lifestyle modification -- Establish goals - Diet - Regular exercise as discussed - Establish weight goals with primary care doctor Additional stroke reduction measures and stroke warning signs are listed below. Return to see Cerebrovascular HIEU in July 2022 Please do not hesitate to call if you have any questions I spent a total of 45 minutes on the date of service which included preparing to see the patient, [id number] patient care, completing clinical documentation, obtaining and/or reviewing separately obtained history, performing a medically appropriate examination, counseling and educating the patient/family/caregiver, communicating results to the patient/family/caregiver, and care coordination (not separately reported) SIGNATURE Sheila Smith APRN.MOLD BREAKER 05/24/2022 3:07 PM Attending Note I have personally performed a face to face assessment of the patient and have reviewed the HIEU note. Other additions or changes: As edited Signature: Segundo Roberts Date: 05/24/2022 Time: 11:00 AM CC SELF Eulalio Sykes [address] [place] [address] [facility] NoteHNO ID: [id number] Author: Eulalio Sykes MD Service: ? Author Type: Physician Type: Progress Notes Filed: 05/04/2022 2:59 PM Note Text: Patient presents with: Hospital F/U HPI: Patient presents today for office visit for hospital/Transitional care unit follow up. Not TCM. Discharged from TCU on 04/22: She was placed on dual antiplatelet therapy. Was already begun on lipitor as well. Began therapies at [facility] T[facility]. Had not been treating her sleep apnea. Has followed already with pulmonary for her JANE. They are going to repeat sleep study. Her pain on her right side was worse after the stroke, so gabapentin. She has a 30 day event recorder ordered and is to follow with cardiology. Also has an upcoming appt with neurology. Has also seen Dr. Pro for her bladder. She is unable to afford the medication she has given her Will be doing out patient therapy [facility]. She is tired and not sleeping well. Still has slight facial droop on the right. Has numbness on the right side. Some weakness still in the right side. Some dizziness. No speech issues. Some issues with word finding and will be doing speech therapy. Using walker. No falls. Appetite is good. No chest pain No shortness of breath. No issues with urine. Using miralax for the bowels. See discharge summary from [place]: HOSPITAL COURSE: Shira Shen is a 71 year old female presented with past medical history of HTN, Hyperlipidemia, GERD, OA Bladder, Environmental Allergies, Bipolar 1 Disorder and Depression, who presented to the ED on 03/30/22 with right arm and leg weakness and numbness since the morning of 03/29/22. She reported that she when she was getting dressed, she developed a weird sensation. About 15 minutes later, she began to feel a pins and needles sensation in her right hand that radiated up her right arm and into her right face. About 30 minutes following this, she developed right leg numbness. She was seen at the [facility] ED on 03/29 and after a negative workup, she was discharged back home. Patient reported that by the morning of 03/31/22, she was having difficulty ambulating as her balance was off. She was also having difficulty grasping items in her right hand. Patient reported difficulty swallowing her pills. They felt stuck on the right side of my throat. This was not a new issue, she occasionally had dysphagia, but this was worse than normal. In the ED, she was afebrile with BP 145/77. K 4.1, Cr 0.7, WBC 6.1, Hgb 12.2, TSH 3.17. CT Brain showed NAD. CTA of Head/Neck showed a 17% stenosis of the Right ICA and 33% stenosis Left ICA, patent cervical vertebral arteries and bilateral MCA, bilateral 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 and right PICA stenoses. The case was discussed with Neurology and patient was outside the TNK window. DAPT was started. TeleNeurology was consulted. MRI of Brain showed an acute left thalamocapsular infarct. She had a history of allergies to statins (itching with Pravastatin noted in chart) and was on Colestipol. Discussed a trial of Atorvastatin to decrease her risk of another CVA. Colestipol discontinued and Atorvastatin 40 mg q HS ordered. Neurology ordered a Aspirin/Clopidogrel resistance test. Speech Therapy recommended a regular diet. PT/OT recommended Acute Rehab. ECHO ordered. 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) Assessment AND Plan: Continued right arm and leg weakness, difficulty with coordination and walking CT Brain showed NAD CTA of Head/Neck showed a 17% stenosis of the Right ICA and 33% stenosis Left ICA, patent cervical vertebral arteries and bilateral MCA, bilateral 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 and right PICA stenoses MRI of Brain showed an acute left thalamocapsular infarct ECHO pending TC 259/HDL 33/LDL 155/TG 356 HbA1c 6.0 Neurology consult reviewed Continue ASA/Plavix for 90 days Aspirin/Clopidogrel resistance test ordered Colestipol discontinued Atorvastatin 40 mg q HS started - tolerating Follow-up with Stroke Clinic PT/OT recommended Acute Rehab Active Problems: Right hemiparesis (HCC) Assessment AND Plan: As above Dysphagia Assessment AND Plan: Speech Therapy recommended regular diet and thin liquids Mixed hyperlipidemia Assessment AND Plan: Plan as above TC 259/HDL 33/LDL 155/TG 356 - on Colestipol D/Luis A Colestipol Atorvastatin 40mg q HS ordered Monitor for reaction Primary hypertension Assessment AND Plan: BP elevated Propranolol LA dose recently increased to 120 mg daily Add Amlodipine 2.5 mg daily Monitor Stenosis of cerebral artery Assessment AND Plan: As above Hyperactivity of bladder Assessment AND Plan: Continue Trospium for Detrol LA Monitor GERD (gastroesophageal reflux disease) Assessment AND Plan: Continue Protonix for Nexium Bipolar I disorder (HCC) Assessment AND Plan: Stable Continue Sertraline Physical Debility Assessment AND Plan: PT/OT recommended acute rehab MEDICATIO (more content not included)...[facility]09-02-2022 History of Present illness Narrative* Eulalio Sykes MD - 05/04/2022 2:42 PM EDT Patient presents with: Hospital F/U HPI: Patient presents today for office visit for hospital/Transitional care unit follow up. Not TCM. Discharged from TCU on 04/22: She was placed on dual antiplatelet therapy. Was already begun on lipitor as well. Began therapies at [facility] TCU. Had not been treating her sleep apnea. Has followed already with pulmonary for her JANE. They are going to repeat sleep study. Her pain on her right side was worse after the stroke, so gabapentin. She has a 30 day event recorder ordered and is to follow with cardiology. Also has an upcoming appt with neurology. Has also seen Dr. Pro for her bladder. She is unable to afford the medication she has given her Will be doing out patient therapy [facility]. She is tired and not sleeping well. Still has slight facial droop on the right. Has numbness on the right side. Some weakness still in the right side. Some dizziness. No speech issues. Some issues with word finding and will be doing speech therapy. Using walker. No falls. Appetite is good. No chest pain No shortness of breath. No issues with urine. Using miralax for the bowels. See discharge summary from [place]: HOSPITAL COURSE: Shira Shen is a 71 year old female presented with past medical history of HTN, Hyperlipidemia, GERD, OA Bladder, Environmental Allergies, Bipolar 1 Disorder and Depression, who presented to the ED on 03/30/22 with right arm and leg weakness and numbness since the morning of 03/29/22. She reported that she when she was getting dressed, she developed a weird sensation. About 15 minutes later, she began to feel a pins and needles sensation in her right hand that radiated up herright arm and into her right face. About 30 minutes following this, she developed right leg numbness. She was seen at the [facility] ED on 03/29 and after a negative workup, she was discharged back home.Patient reported that by the morning of 03/31/22, she was having difficulty ambulating as her balance was off. She was also having difficulty grasping items in her right hand. Patient reported difficulty swallowing her pills. They felt stuck on the right side of my throat. This was not a new issue, she occasionally had dysphagia, but this was worse than normal. In the ED, she was afebrile with BP 145/77. K 4.1, Cr 0.7, WBC 6.1, Hgb 12.2, TSH 3.17. CT Brain showed NAD. CTA of Head/Neck showed a 17% stenosis of the Right ICA and 33% stenosis Left ICA, patent cervical vertebral arteries and bilateral MCA, bilateral 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 and right PICA stenoses. The case was discussed with Neurology and patient was outside the TNK window. DAPT was started. TeleNeurology was consulted. MRI of Brain showed an acute left thalamocapsular infarct. She had a history of allergiesto statins (itching with Pravastatin noted in chart) and was on Colestipol. Discussed a trial of Atorvastatin to decrease her risk of another CVA. Colestipol discontinued and Atorvastatin 40 mg q HS ordered. Neurology ordered a Aspirin/Clopidogrel resistance test. Speech Therapy recommended a regular diet. PT/OT recommended Acute Rehab. ECHO ordered. 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) Assessment & Plan: Continued right arm and leg weakness, difficulty with coordination and walking CT Brain showed NAD CTA of Head/Neck showed a 17% stenosis of the Right ICA and 33% stenosis Left ICA, patent cervical vertebral arteries and bilateral MCA, bilateral 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 and right PICA stenoses MRI of Brain showed an acute left thalamocapsular infarct ECHO pending TC 259/HDL 33/LDL 155/TG 356 HbA1c 6.0 Neurology consult reviewed Continue ASA/Plavix for 90 days Aspirin/Clopidogrel resistance test ordered Colestipol discontinued Atorvastatin 40 mg q HS started - tolerating Follow-up with Stroke Clinic PT/OT recommended Acute Rehab Active Problems: Right hemiparesis (HCC) Assessment & Plan: As above Dysphagia Assessment & Plan: Speech Therapy recommended regular diet and thin liquids Mixed hyperlipidemia Assessment & Plan: Plan as above TC 259/HDL 33/LDL 155/TG 356 - on Colestipol D/Luis A Colestipol Atorvastatin 40mg q HS ordered Monitor for reaction Primary hypertension Assessment & Plan: BP elevated Propranolol LA dose recently increased to 120 mg daily Add Amlodipine 2.5 mg daily Monitor Stenosis of cerebral artery Assessment & Plan: As above Hyperactivity of bladder Assessment & Plan: Continue Trospium for Detrol LA Monitor GERD (gastroesophageal reflux disease) Assessment & Plan: Continue Protonix for Nexium Bipolar I disorder ([facility]) Assessment & Plan: Stable Continue Sertraline Physical Debility Assessment & Plan: PT/OT recommended acute rehab MEDICATIONS: Current Outpatient Medications Medication Sig pantoprazole DR (PROTONIX) 40 mg tablet Take 40 mg by mouth twice daily. amLODIPine (NORVASC) 2.5 mg tablet Take 1 tablet by mouth once daily. aspirin 81 mg chewable tablet 1 tablet by ORAL/FEEDING TUBE route once daily. atorvastatin (LIPITOR) 40 mg tablet Take 1 tablet by mouth daily at bedtime. clopidogrel (PLAVIX) 75 mg tablet 1 tablet by ORAL/FEEDING TUBE route once daily for 86 doses. gabapentin (NEURONTIN) 300 mg capsule Take 1 capsule by mouth three times daily for 90 days. (Patient taking differently: Take 400 mg by mouth. Take one in the morning, one in the afternoon, and take2 at bedtime.) propranolol ER (INDERAL LA) 120 mg 24 hr capsule Take 1 capsule by mouth once daily. sertraline (ZOLOFT) 25 mg tablet Take 25 mg by mouth twice daily. montelukast (SINGULAIR) 10 mg tablet Take 1 tablet by mouth daily at bedtime. coenzyme Q10 (COENZYME Q-10) 100 mg cap capsule Take 200 mg by mouth once daily. fluticasone (FLONASE) 50 mcg/actuation nasal spray Use 2 Sprays in each nostril once daily. Rinse mouth after use. Ascorbic Acid 500 mg cpER Take 1 Each by mouth once daily. cholecalciferol (VITAMIN D3) 1,000 unit tab tablet Take 1,000 Units by mouth once daily. multivitamins(MULTIPLE VITAMIN TAB) Take one(1) tablet daily. famotidine (PEPCID) 40 mg tablet Take 1 tablet by mouth once daily. tolterodine ER (DETROL LA) 4 mg 24 hr capsule Take 1 capsule by mouth once daily. cranberry fruit extract (CRANBERRY ORAL) Take 1 tablet by mouth once daily. fexofenadine HCl (JOVAN ORAL) Take 1 tablet by mouth once daily. COMPOUNDED PRESCRIPTION CPAP 9 cmH2O with humidification and a standard size ResMed AirFit N10 nasal mask without chin strap acetaminophen (TYLENOL EXTRA STRENGTH) 500 mg tablet Take 2 tablets by mouth every 6 hours as needed for Pain. Take every 6 hours for first three days. Then take every 6 hours as needed. docusate sodium (COLACE) 100 mg capsule Take 1 capsule by mouth twice daily as needed for Constipation. polyethylene glycol 3350 (MIRALAX) 17 gram/dose powder Take 17 g by mouth once daily as needed (constipation). for constipation. No current facility-administered medications for this visit. ALLERGIES: ALLERGIES Allergen Reactions Pravachol [Pravasta* Itching November 20, 2010 -- itching without rash Bxexybd-Rzr-Ijb Red* Itching, Unknown Codeine chest pain & pressure Doxycycline Rash Blisters in mouth Levofloxacin Other: See Comments Itching. Penicillins Rash swell & uticaria Has used cephalosporins Sulfa (Sulfonamide * uticaria PAST MEDICAL HISTORY Diagnosis Date Bipolar I disorder, most recent episode (or current) unspecified Detrusor sphincter dyssynergia Headache has seen neurology and had mri, mra and mrv. HLD (hyperlipidemia) Major depressive disorder, single episode, unspecified Unspecified personal history presenting hazards to health PAST SURGICAL HISTORY Procedure Laterality Date CHOLECYSTECTOMY 1975 COLONOSCOPY 2001? COLONOSCOPY FLX DX W/COLLJ SPEC WHEN PFRMD 05/14/2014 Colonoscopy COLONOSCOPY FLX DX W/COLLJ SPEC WHEN PFRMD 07/03/2017 Colonoscopy ESOPHAGOGASTRODUODENOSCOPY TRANSORAL DIAGNOSTIC 07/03/2017 EGD ESOPHAGOGASTRODUODENOSCOPY TRANSORAL DIAGNOSTIC 06/22/2019 EGD PAST SURGICAL HISTORY OF 06/02/2017 sinus surgery PAST SURGICAL HISTORY OF 04/01/2018 uterine prolapse TOTAL ABDOMINAL HYSTERECT W/WO RMVL TUBE OVARY 1987 TAHBSO (benign), ovarian cysts, appendectomy FAMILY HISTORY Problem Relation Age of Onset Colon Cancer Mother Allergies Mother Heart disease Mother Diabetes Maternal Grandmother Coronary Artery Disease Maternal Grandmother Coronary Artery Disease Maternal Grandfather Coronary Artery Disease Father Hypertension Father Social History Tobacco Use Smoking status: Never Smokeless tobacco: Never Substance Use Topics Alcohol use: No Drug use: No Reviewed current medications, allergies, past medical history, surgical history, family history andsocial history today. REVIEW OF SYSTEMS All other reviewed and negative other than HPI. VITALS: BP 132/72 Pulse 64 Wt 86.6 kg (191 lb) BMI 32.79 kg/m Last 4 Encounter Wt Readings: Date: Wt: 05/04/2022 86.6 kg (191 lb) 03/30/2022 85.6 kg (188 lb 12.8 oz) 03/28/2022 87.3 kg (192 lb 6.4 oz) 02/01/2022 87.8 kg (193 lb 8 oz) PHYSICAL EXAMINATION: General appearance: Well appearing, alert, in no acute distress, well-hydrated, well nourished. Skin: Skin color, texture, turgor normal, no suspicious rashes or lesions Head: Normocephalic, no masses, lesions, tenderness or abnormalities Lungs: Lungs clear to auscultation. No wheezing, rhonchi, rales Heart: RRR without murmur, gallop, or rubs. No ectopy Abdomen: Normal abdominal exam, Abdomen soft, non-tender. Bowel sounds normal. No masses, organomegaly Extremities: No deformities, edema, skin discoloration, clubbing or cyanosis. Good capillary refill. Musculoskeletal: No joint swelling, deformity, or tenderness Peripheral pulses: Normal Neuro: Gait normal. Reflexes normal and symmetric. , subjective numbness. ASSESSMENT/PLAN: 1. 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) - ICD9: 434.91, ICD10: I63.532 (primary diagnosis) - continue meds. Continue physical therapy, occupational therapy and speech therapy. See neurology and cardiology. 2. Right hemiparesis (HCC) - ICD9: 342.90, ICD10: G81.91 - improving. 3. Mixed hyperlipidemia - ICD9: 272.2, ICD10: E78.2 - to be determined upon return of lab results - check labs. 4. Primary hypertension - ICD9: 401.9, ICD10: I10 - good control - Continue current medication(s) - Goal of BP <130/80 5. JANE (obstructive sleep apnea) - ICD9: 327.23, ICD10: G47.33 - working on treatment. Eulalio Sykes RTO in six weeks and prn. documented in this encounterT[facility]08-25-2022 Miscellaneous Notes* Telephone Encounter - Piedad Copeland RN - 04/26/2022 11:11 AM EDT Patient calls and message reviewed. Appointment scheduled for 05/04/2022. Patient to phone back if appointment date/time doesn't work. Piedad Copeland RN * Telephone Encounter - Laura Rubio LPN - 04/26/2022 10:40 AM EDT Left message for patient to call office. She was discharged from [facility] rehab on 04/21/22. Should make a hospital follow up visit for her to be seen. (Patient was admitted there for therapy following stroke that she was seen for at [facility].) documented in this encounterTuscarawas [facility]08-17-2022 Miscellaneous Notes* Telephone Encounter - Perla Bustamante - 04/18/2022 2:37 PM EDT [facility] sent over medical release request for patients sleep study results. Faxed back to [phone]. Perla Bustamante documented in this encounterTuscarawas Hospital08-01-2022 NoteHNO ID: [id number] Author: Edward Cobian MD Service: Hospital Medicine Author Type: Physician Type: Progress Notes Filed: 04/02/2022 6:27 PM Note Text: DEPARTMENT OF HOSPITAL MEDICINE PROGRESS NOTE SERVICE DATE: 04/02/2022 SERVICE TIME: 5:59 PM Hospital Medicine/Primary Attending: Edward Cobian MD NIGHT AND WEEKEND COVERAGE: [place] COVERAGE: Nights: [phone], please page [facility] Hospitalist Night coverage pager [phone]. ASSESSMENT No chest pain or shortness of breath - Medications per guidelines PLAN - Awaiting pre-CERT for rehab Reason for Admission: Acute stroke Consultants: Dr. Rivera for neurology PROCEDURES: NONE Disposition: Extended Care Facility EKG: ECHO: 04/02/2022 - The left ventricle is normal in size. Left ventricular systolic function is normal. EF = 68 ? 5% (2D biplane) Normal left ventricular diastolic function. - The right ventricle is normal in size. Right ventricular systolic function is normal. - Trivial mitral reugurgitation. - Trivial tricuspid regurgitation. - There is no patent foramen ovale as detected by Doppler and saline contrast with ?valsalva. - Saline bubble study is negative for shunt. Recent Labs 04/02/2242904/01/22 0639 03/31/22 0332 03/30/22 2216 03/30/22 1519 TROPT -- -- <0.010 <0.010 <0.010 MCV 91.4 92.0 92.1 -- 91.2 MCH 29.2 29.8 29.6 -- 29.8 MPV 10.7 11.0 10.7 -- 10.8 Recent Labs 04/02/22 04304/01/22 0639 03/31/22 0332 WBC 7.26 7.23 6.79 RBC 4.07 4.23 4.06 HB 11.9 12.6 12.0 HCT 37.2 38.9 37.4 PLT 206 222 207 MCV 91.4 92.0 92.1 MCH 29.2 29.8 29.6 MPV 10.7 11.0 10.7 Recent Labs 04/02/22 0430 04/01/22 0639 03/31/22 0332 GLUC 123* 132* 137* NA 141 140 141 K 4.4 4.1 4.3 CHLOR 104 102 102 CO2 29 25 27 CREAT 0.72 0.62 0.70 BUN 16 15 16 ANION 8* 13 12 CA 9.8 10.3* 9.7 TPROT 7.0 7.9 7.0 7.0 ALB 4.0 4.4 4.1 4.1 TBILI 0.3 0.3 0.2 0.2 ALKPHOS 73 84 83 83 AST 53* 64* -- ALT 46* 51* -- Recent Labs 04/02/2242904/01/22 0639 03/31/22 0332 BUN 16 15 16 CREAT 0.72 0.62 0.70 CA 9.8 10.3* 9.7 MG 2.0 2.1 2.0 Most recent labs HOSPITAL COURSE: Shira Shen is a 71 year old female presented with past medical history of HTN, Hyperlipidemia, GERD, OA Bladder, Environmental Allergies, Bipolar 1 Disorder and Depression, who presented to the ED on 03/30/22 with right arm and leg weakness and numbness since the morning of 03/29/22. She reported that she when she was getting dressed, she developed a weird sensation. About 15 minutes later, she began to feel a pins and needles sensation in her right hand that radiated up her right arm and into her right face. About 30 minutes following this, she developed right leg numbness. She was seen at the [place] ED on 03/29 and after a negative workup, she was discharged back home. Patient reported that by the morning of 03/31/22, she was having difficulty ambulating as her balance was off. She was also having difficulty grasping items in her right hand. Patient reported difficulty swallowing her pills. They felt stuck on the right side of my throat. This was not a new issue, she occasionally had dysphagia, but this was worse than normal. ? In the ED, she was afebrile with BP 145/77. K 4.1, Cr 0.7, WBC 6.1, Hgb 12.2, TSH 3.17. CT Brain showed NAD. CTA of Head/Neck showed a 17% stenosis of the Right ICA and 33% stenosis Left ICA, patent cervical vertebral arteries and bilateral MCA, bilateral 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 and right PICA stenoses. The case was discussed with Neurology and patient was outside the TNK window. DAPT was started. TeleNeurology was consulted. MRI of Brain showed an acute left thalamocapsular infarct. She had a history of allergies to statins (itching with Pravastatin noted in chart) and was on Colestipol. Discussed a trial of Atorvastatin to decrease her risk of another CVA. Colestipol discontinued and Atorvastatin 40 mg q HS ordered. Neurology ordered a Aspirin/Clopidogrel resistance test. Speech Therapy recommended a regular diet. PT/OT recommended Acute Rehab. ECHO ordered. ? ? 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) Assessment AND Plan: Continued right arm and leg weakness, difficulty with coordination and walking CT Brain showed NAD CTA of Head/Neck showed a 17% stenosis of the Right ICA and 33% stenosis Left ICA, patent cervical vertebral arteries and bilateral MCA, bilateral 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 and right PICA stenoses MRI of Brain showed an acute left thalamocapsular infarct ECHO pending TC 259/HDL 33/LDL 155/TG 356 HbA1c 6.0 Neurology consult reviewed Continue ASA/Plavix for 90 days Aspirin/Clopidogrel resistance test ordered Colestipol discontinued Atorvastatin 40 mg q HS started - tolerating Follow-up with Stroke Clinic PT/OT recommended Acute Rehab ? Active Problems: Right hemiparesis (HCC) Assessment AND Plan: As above ? Dysphagia As (more content not included)...[facility] [id number] NoteHNO ID: [id number] Author: Nehemias Garcia Jr., MD Service: Hospital Medicine Author Type: Physician Type: Progress Notes Filed: 04/01/2022 5:13 PM Note Text: DEPARTMENT OF HOSPITAL MEDICINE PROGRESS NOTE SERVICE DATE: 04/01/2022 SERVICE TIME: 5:10 PM Hospital Medicine/Primary Attending: Nehemias Garcia Jr. NIGHT AND WEEKEND COVERAGE: [place] COVERAGE: Days: [phone], please page attending physician. Nights: [phone], please page [facility] Hospitalist Night coverage pager [phone]. Subjective INTERVAL HPI: Patient reports continued right arm and leg numbness, weakness and coordination difficulty. Tolerated Atorvastatin last night Current Facility-Administered Medications Medication Dose Route Frequency - NaCl 0.9% iv flush bag 20 mL INTRAVENOUS PRN - sodium chloride 0.9 % (flush) 3-5 mL (BD POSIFLUSH) 3-5 mL INTRAVENOUS q 12 H - aspirin 81 mg chewable tab(s) 81 mg ORAL/FEEDING TUBE DAILY Or - aspirin 300 mg suppository 300 mg RECTAL DAILY - clopidogrel 75 mg tab(s) (PLAVIX) 75 mg ORAL/FEEDING TUBE DAILY - propranolol ER 120 mg cap(s) (INDERAL LA) 120 mg ORAL DAILY - montelukast 10 mg tab(s) (SINGULAIR) 10 mg ORAL AT BEDTIME - pantoprazole DR 20 mg tab(s) (PROTONIX) 20 mg ORAL DAILY (6 AM) - trospium 20 mg tab(s) (SANCTURA) 20 mg ORAL BID AC - sertraline 25 mg tab(s) (ZOLOFT) 25 mg ORAL BID - ascorbic acid (vitamin C) 500 mg tab(s) (VITAMIN C) 500 mg ORAL DAILY - cholecalciferol 1,000 Units tab(s) (VITAMIN D3) 1,000 Units ORAL DAILY - gabapentin 300 mg cap(s) (NEURONTIN) 300 mg ORAL q 8 H - atorvastatin 40 mg tab(s) (LIPITOR) 40 mg ORAL AT BEDTIME - sodium chloride 0.9 % (flush) 2-10 mL (BD POSIFLUSH) 2-10 mL INTRAVENOUS DIRECTED PRN And - perflutren lipid microspheres 1.1 mg/mL 1.3 mL injection (DEFINITY) 1.3 mL INTRAVENOUS DIRECTED PRN - amLODIPine 2.5 mg tab(s) (NORVASC) 2.5 mg ORAL DAILY - traZODone 25 mg tab(s) (DESYREL) 25 mg ORAL AT BEDTIME PRN Objective PHYSICAL EXAM: BP 140/71 Pulse 68 Temp (Src) 97.5 (Temporal) Resp 20 Wt 190 lb 7.6 oz (86.4kg) SpO2 97% O2 Therapy: Room Air Physical Exam Performed GENERAL: well appearing, in no acute distress EYES: PERRLA, EOMI, Conjunctiva clear MOUTH and THROAT: membranes moist NECK: supple HEART: regular rate and rhythm, S1 and S2, no murmur LUNGS: clear to auscultation; no rales or wheezes ABDOMEN: Soft, nontender, bowel sounds normal, no masses EXTREMITY: no edema; no erythema NEURO: Alert and Oriented x3; Proximal right arm and leg strength 4/5 PSYCH: Appropriate mood; Cooperative Lines, Drains, and Airways Line Peripheral 03/30/22 1520 Short Right Antecubital 20 Gauge 2 days DATA: Diagnostic tests reviewed for today's visit: Most recent labs Most recent imaging Assessment/Plan Problem List 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 She reported that she when she was getting dressed, she developed a weird sensation. About 15 minutes later, she began to feel a pins and needles sensation in her right hand that radiated up her right arm and into her right face. About 30 minutes following this, she developed right leg numbness. She was seen at the [facility] ED on 03/29 and after a negative workup, she was discharged back home. Patient reported that by the morning of 03/31/22, she was having difficulty ambulating as her balance was off. She was also having difficulty grasping items in her right hand. Patient reported difficulty swallowing her pills. They felt stuck on the right side of my throat. This was not a new issue, she occasionally had dysphagia, but this was worse than normal. In the ED, she was afebrile with BP 145/77. K 4.1, Cr 0.7, WBC 6.1, Hgb 12.2, TSH 3.17. CT Brain showed NAD. CTA of Head/Neck showed a 17% stenosis of the Right ICA and 33% stenosis Left ICA, patent cervical vertebral arteries and bilateral MCA, bilateral 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 and right PICA stenoses. The case was discussed with Neurology and patient was outside the TNK window. DAPT was started. TeleNeurology was consulted. MRI of Brain showed an acute left thalamocapsular infarct. She had a history of allergies to statins (itching with Pravastatin noted in chart) and was on Colestipol. Discussed a trial of Atorvastatin to decrease her risk of another CVA. Colestipol discontinued and Atorvastatin 40 mg q HS ordered. Neurology ordered a Aspirin/Clopidogrel res (more content not included)...[facility] [id number] NoteHNO ID: [id number] Author: Nehemias Garcia Jr., MD Service: Hospital Medicine Author Type: Physician Type: Progress Notes Filed: 03/31/2022 4:46 PM Note Text: DEPARTMENT OF HOSPITAL MEDICINE PROGRESS NOTE SERVICE DATE: 03/31/2022 SERVICE TIME: 4:36 PM Hospital Medicine/Primary Attending: Nehemias Garcia Jr. NIGHT AND WEEKEND COVERAGE: [place] COVERAGE: Days: [phone], please page attending physician. Nights: [phone], please page [place] Hospitalist Night coverage pager [phone]. Subjective INTERVAL HPI: Patient reports continued difficulty using her right arm and right leg. No speech or visual changes. Discussed her history of statin allergy - medical record noted itching with Pravastatin. She denied any rash or trouble with her breathing. She was willing to trial another statin. Current Facility-Administered Medications Medication Dose Route Frequency - NaCl 0.9% iv flush bag 20 mL INTRAVENOUS PRN - sodium chloride 0.9 % (flush) 3-5 mL (BD POSIFLUSH) 3-5 mL INTRAVENOUS q 12 H - aspirin 81 mg chewable tab(s) 81 mg ORAL/FEEDING TUBE DAILY Or - aspirin 300 mg suppository 300 mg RECTAL DAILY - clopidogrel 75 mg tab(s) (PLAVIX) 75 mg ORAL/FEEDING TUBE DAILY - propranolol ER 120 mg cap(s) (INDERAL LA) 120 mg ORAL DAILY - montelukast 10 mg tab(s) (SINGULAIR) 10 mg ORAL AT BEDTIME - pantoprazole DR 20 mg tab(s) (PROTONIX) 20 mg ORAL DAILY (6 AM) - trospium 20 mg tab(s) (SANCTURA) 20 mg ORAL BID AC - sertraline 25 mg tab(s) (ZOLOFT) 25 mg ORAL BID - ascorbic acid (vitamin C) 500 mg tab(s) (VITAMIN C) 500 mg ORAL DAILY - cholecalciferol 1,000 Units tab(s) (VITAMIN D3) 1,000 Units ORAL DAILY - gabapentin 300 mg cap(s) (NEURONTIN) 300 mg ORAL q 8 H - atorvastatin 40 mg tab(s) (LIPITOR) 40 mg ORAL AT BEDTIME - sodium chloride 0.9 % (flush) 2-10 mL (BD POSIFLUSH) 2-10 mL INTRAVENOUS DIRECTED PRN And - perflutren lipid microspheres 1.1 mg/mL 1.3 mL injection (DEFINITY) 1.3 mL INTRAVENOUS DIRECTED PRN Objective PHYSICAL EXAM: BP 163/66 Pulse 69 Temp (Src) 98.2 (Temporal) Resp 20 Wt 190 lb 7.6 oz (86.4kg) SpO2 96% O2 Therapy: Room Air Physical Exam Performed GENERAL: well appearing, in no acute distress EYES: PERRLA, EOMI, Conjunctiva clear MOUTH and THROAT: membranes moist NECK: supple HEART: regular rate and rhythm, S1 and S2, no murmur LUNGS: clear to auscultation; no rales or wheezes ABDOMEN: Soft, nontender, bowel sounds normal, no masses EXTREMITY: no edema; no erythema NEURO: Alert and Oriented x3; Proximal right arm and leg strength 4/5, right hand strength and coord nl PSYCH: Appropriate mood; Cooperative Lines, Drains, and Airways Line Peripheral 03/30/22 1520 Short Right Antecubital 20 Gauge 1 day DATA: Diagnostic tests reviewed for today's visit: Most recent labs Most recent imaging Assessment/Plan Problem List 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 She reported that she when she was getting dressed, she developed a weird sensation. About 15 minutes later, she began to feel a pins and needles sensation in her right hand that radiated up her right arm and into her right face. About 30 minutes following this, she developed right leg numbness. She was seen at the [facility] ED on 03/29 and after a negative workup, she was discharged back home. Patient reported that by the morning of 03/31/22, she was having difficulty ambulating as her balance was off. She was also having difficulty grasping items in her right hand. Patient reported difficulty swallowing her pills. They felt stuck on the right side of my throat. This was not a new issue, she occasionally had dysphagia, but this was worse than normal. In the ED, she was afebrile with BP 145/77. K 4.1, Cr 0.7, WBC 6.1, Hgb 12.2, TSH 3.17. CT Brain showed NAD. CTA of Head/Neck showed a 17% stenosis of the Right ICA and 33% stenosis Left ICA, patent cervical vertebral arteries and bilateral MCA, bilateral 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 and right PICA stenoses. The case was discussed with Neurology and patient was outside the TNK window. DAPT was started. TeleNeurology was consulted. MRI of Brain showed an acute left thalamocapsular infarct. She had a history of allergies to statins (itching with Pravastatin noted in chart) and was on Colestipol. Discussed a trial of Atorvastatin to decrease her risk of another CVA. Colestipol discontinued and (more content not included)...[facility] [id number] NoteHNO ID: [id number] Author: Deja Hurtado MD Service: ? Author Type: Fellow Type: Progress Notes Filed: 03/30/2022 5:45 PM Note Text: TELESTROKE DOCUMENTATION Name: Shira Shen : 1950 Referring Site: [place] Referring Provider: Adiel Last Known Well (Date/Time): 03/29/22 0800 Neurologist Evaluation (Date/Time): 03/30/22 1501 Chief Complaint: Numbness right side accompanied by weakness HPI: 71 year old female,71-year-old woman w PMHx significant for HLD coming with R sided numbness which has been present since yesterday at 8 AM. Today, it has been accompanied by weakness which is why she went to [facility]. Apparently she was discharged from [facility] yesterday after they did a CT brain which was found to be normal. In the ED, her NIHSS is 3 (1 RUE weakness, 1 for RLE weakness and 1 for ataxia), BP 145/77 and BG is 112. No aphasia, neglect or gaze deviation on exam. She is not a candidate for TNK given she is outside the window. Clinically, not consistent with LVO since there are no cortical signs but will do CTA HANDN to completely rule it out. CTB and CTA HANDN pending. 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 CTA did not show any LVO although significant intracranial stenosis. She can be loaded with ASA 325 mg PO now and from tomorrow, she can be started on DAPT for 3 months per SAMMPRIS criteria given degree of intracranial stenosis. Stroke Risk Factors Hypercholesterolemia Current Anticoagulant Not Applicable BP: 145/77 HR: 79 NIHSS Telestroke Type - Patient location (ED or Inpatient): ED - Telephone Site Reported NIHSS: 3 Neurologist Performed Total Score: N/A Labs Glucose: [address] Imaging reviewed, NO acute infarct/hemorrhage seen CTA Imaging reviewed, NO large vessel occlusion or severe stenosis seen Summary Suspected ACUTE ischemic stroke IV Thrombolysis Candidate Window: No - Patient arrived past 4.5 hour window OR Last Known Well Date/Time is unknown Potential Candidate for Endovascular Therapy: No - Negative for evidence of large vessel occlusion Disposition/Billing (Physician is not in the same physical location as the patient) The patient will remain at the referring institution for further evaluation and management This case was discussed with stroke staff who was immediately available for direct supervision when needed.(List staff name): Jennifer Telephone Only: Minutes spent reviewing pertinent diagnostic data and discussing patient care with the referring physician: 30 More than 50 percent of the encounter was spent on coordinating care of the patient during a telestroke. Thank you for contacting the [facility]. I appreciate the opportunity for allowing me to participate in Shira Shen's care. Please feel free to contact me and/or the [facility] at any time if you have any further questions or need additional assistance. Deja Hurtado MD March 30, 2022 3:49 [facility]07-29-2022 History of Present illness Narrative* Deja Hurtado MD - 03/30/2022 3:49 PM EDT TELESTROKE DOCUMENTATION Name: Shira Shen : 1950 Referring Site: [place] Referring Provider: Adiel Last Known Well (Date/Time): 03/29/22 0800 Neurologist Evaluation (Date/Time): 03/30/22 1501 Chief Complaint: Numbness right side accompanied by weakness HPI: 71 year old female,71-year-old woman w PMHx significant for HLD coming with R sided numbness which has been present since yesterday at 8 AM. Today, it has been accompanied by weakness which is why she went to [place] [facility]. Apparently she was discharged from [facility] yesterday after they did aCT brain which was found to be normal. In the ED, her NIHSS is 3 (1 RUE weakness, 1 for RLE weakness and 1 for ataxia), BP 145/77 and BG is 112. No aphasia, neglect or gaze deviation on exam. She is not a candidate for TNK given she is outside the window. Clinically, not consistent with LVO since there are no cortical signs but will do CTA H&N to completely rule it out. CTB and CTA H&N pending. 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 CTA did not show any LVO although significant intracranial stenosis. She can be loaded with ASA 325 mg PO now and from tomorrow, she can be started on DAPT for 3 months per SAMMPRIS criteria given degree of intracranial stenosis. Stroke Risk Factors Hypercholesterolemia Current Anticoagulant Not Applicable BP: 145/77 HR: 79 NIHSS Telestroke Type - Patient location (ED or Inpatient): ED - Telephone Site Reported NIHSS: 3 Neurologist Performed Total Score: N/A Labs Glucose: [address] Imaging reviewed, NO acute infarct/hemorrhage seen CTA Imaging reviewed, NO large vessel occlusion or severe stenosis seen Summary Suspected ACUTE ischemic stroke IV Thrombolysis Candidate Window: No - Patient arrived past 4.5 hour window OR Last Known Well Date/Time is unknown Potential Candidate for Endovascular Therapy: No - Negative for evidence of large vessel occlusion Disposition/Billing (Physician is not in the same physical location as the patient) The patient will remain at the referring institution for further evaluation and management This case was discussed with stroke staff who was immediately available for direct supervision whenneeded.(List staff name): Jennifer Telephone Only: Minutes spent reviewing pertinent diagnostic data and discussing patient care with the referring physician: 30 More than 50 percent of the encounter was spent on coordinating care of the patient during a telestroke. Thank you for contacting the [facility]. I appreciate the opportunity for allowing me to participate in Shira Shen's care. Please feel free to contact me and/or the [facility] at any time if you have any further questions or need additional assistance. Deja Hurtado MD March 30, 2022 3:49 PM documented in this encounterTuscarawas Hospital07-29-2022 Miscellaneous Notes* Telephone Encounter - Laura Rubio LPN - 03/30/2022 12:43 PM EDT States that is having trouble walking or using her hand. Advised that needs to go back to ER. Patient agreeable. * Telephone Encounter - Eulalio Sykes MD - 03/30/2022 12:25 PM EDT Work up negative. Paresthesia just means numbness. No reason found. If she is having issues walking, back to ER. Can go to somewhere like a [facility] ER if she is willing * Telephone Encounter - Eli Herrera Ma - 03/30/2022 10:00 AM EDT [facility] ER documents received. Will route to PCP to review, here shortly. Eli Herrera Ma * Telephone Encounter - Eulalio Sykes MD - 03/30/2022 9:46 AM EDT Can we pull the ER visit for me to look at again. (That is an odd neuro presentation) * Telephone Encounter - Ivon Restrepo RN - 03/30/2022 9:40 AM EDT Patient reports she was seen at [facility] ER yesterday due to numbness/tingling of her right side. CT scan and blood work completed. She reports she was diagnosed with paraesthesia and was told to F/U withprovider. No new medications or tests were ordered. Soonest appt available is 04/03/22 with Jaci Bailey. Patient states she continues to have feelings like her right side is asleep from the top of her head to the bottom of her foot and can hardly walk. She is asking if it is ok to wait to see Jaci on 04/[address] Sykes has any additional instructions? Please advise. Thank you. documented in this encounterTuscar[facility]as [facility]07-27-2022 NoteHNO ID: [id number] Author: Eulalio Sykes MD Service: ? Author Type: Physician Type: Progress Notes Filed: 03/28/2022 5:51 PM Note Text: Patient presents with: F/U 6 Month HPI: Patient presents today for office visit for follow up. URO: Patient requesting to get appt set up. Last 3-4 weeks worsening of bladder discomfort and urge to urinate. Currently taking Detrol - ineffective. No dysuria. No burning. No hematuria. A couple of months ago, urine had a sweet smell. Hx of UTI in December 2021 - cleared up. SPINE: Patient to schedule follow up appt. Chronic left shoulder pain with radiation to elbow. Pain worsening the last month and half. Recent injection in December. Pain relief for a month. Currently taking gabapentin and extra strength tylenol - minimal relief. JANE: Uses breathing strips - does not use CPAP Sleeps well: No. Feels rested on awakening: No No daytime fatigue: Yes Snoring: No RHEUM: Hx of sicca syndrome. Stable. HYPERGLYCEMIA: Patient does not check sugars. A1c trending up. Last A1c was 6.3. Currently not treating. Patient watching diet - diet reviewed. REEVES: Stable. tx with extra tylenol PSYCH: Seeing psychiatry. Mood is stable. Good appetite and fluid intake. Still taking the zoloft. MEDICATIONS: Current Outpatient Medications Medication Sig - sertraline (ZOLOFT) 25 mg tablet Take 25 mg by mouth twice daily. - gabapentin (NEURONTIN) 300 mg capsule Take 1 capsule by mouth three times daily for 90 days. - colestipol (COLESTID) 1 gram tablet Take 1 tablet by mouth twice daily. - propranolol ER (INDERAL LA) 80 mg 24 hr capsule Take 1 capsule by mouth once daily. - montelukast (SINGULAIR) 10 mg tablet Take 1 tablet by mouth daily at bedtime. - tolterodine ER (DETROL LA) 4 mg 24 hr capsule Take 1 capsule by mouth once daily. - fexofenadine HCl (JOVAN ORAL) Take by mouth. - coenzyme Q10 (CO Q-10) 100 mg cap capsule Take 200 mg by mouth once daily. - esomeprazole (NEXIUM 24HR) 20 mg capsule Take 1 capsule by mouth DAILY (6 AM). - fluticasone (FLONASE) 50 mcg/actuation nasal spray Use 2 Sprays in each nostril once daily. Rinse mouth after use. - COMPOUNDED PRESCRIPTION CPAP 9 cmH2O with humidification and a standard size ResMed AirFit N10 nasal mask without chin strap - acetaminophen (TYLENOL EXTRA STRENGTH) 500 mg tablet Take 2 tablets by mouth every 6 hours as needed for Pain. Take every 6 hours for first three days. Then take every 6 hours as needed. - polyethylene glycol 3350 (MIRALAX) 17 gram/dose powder Take 17 g by mouth once daily as needed (constipation). for constipation. - Ascorbic Acid (VITAMIN C) 500 mg cpER Take 1 Each by mouth once daily. - cholecalciferol (VITAMIN D) 1,000 unit tab tablet Take 1,000 Units by mouth once daily. - multivitamins(MULTIPLE VITAMIN TAB) Take one(1) tablet daily. - cephALEXin (KEFLEX) 500 mg capsule Take 1 capsule by mouth twice daily. (Patient not taking: Reported on 02/01/2022 ) - cranberry fruit extract (CRANBERRY ORAL) Take by mouth. - docusate sodium (COLACE) 100 mg capsule Take 1 capsule by mouth twice daily as needed for Constipation. - sertraline (ZOLOFT) 50 mg tablet Take 50 mg by mouth once daily. (Patient not taking: Reported on 02/01/2022 ) No current facility-administered medications for this visit. ALLERGIES: ALLERGIES Allergen Reactions - Pravachol [Pravasta* Itching November 20, 2010 -- itching without rash - Nxaswmk-Mhp-Ouy Red* Itching, Unknown - Codeine chest pain AND pressure - Doxycycline Rash Blisters in mouth - Levofloxacin Other: See Comments Itching. - Penicillins Rash swell AND uticaria Has used cephalosporins - Sulfa (Sulfonamide * uticaria PAST MEDICAL HISTORY Diagnosis Date - Bipolar I disorder, most recent episode (or current) unspecified - Detrusor sphincter dyssynergia - Headache has seen neurology and had mri, mra and mrv. - HLD (hyperlipidemia) - Major depressive disorder, single episode, unspecified - Unspecified personal history presenting hazards to health PAST SURGICAL HISTORY Procedure Laterality Date - CHOLECYSTECTOMY 1974 - COLONOSCOPY 2001? - COLONOSCOPY FLX DX W/COLLJ SPEC WHEN PFRMD 05/14/2014 Colonoscopy - COLONOSCOPY FLX DX W/COLLJ SPEC WHEN PFRMD 07/03/2017 Colonoscopy - ESOPHAGOGASTRODUODENOSCOPY TRANSORAL DIAGNOSTIC 07/03/2017 EGD - ESOPHAGOGASTRODUODENOSCOPY TRANSORAL DIAGNOSTIC 06/22/2019 EGD - PAST SURGICAL HISTORY OF 06/02/2017 sinus surgery - PAST SURGICAL HISTORY OF 04/01/2018 uterine prolapse - TOTAL ABDOMINAL HYSTERECT W/WO RMVL TUBE OVARY 1987 TAHBSO (benign), ovarian cysts, appendectomy FAMILY HISTORY Problem Relation Age of Onset - Colon Cancer Mother - Allergies Mother - Heart disease Mother - Diabetes Maternal Grandmother - Coronary Artery Disease Maternal Grandmother - Coronary Artery Disease Maternal Grandfather - Coronary Artery Diseas (more content not included)...[facility]07-27-2022 History of Present illness Narrative* Eulalio Sykes MD - 03/28/2022 10:20 AM EDT Patient presents with: F/U 6 Month HPI: Patient presents today for office visit for follow up. URO: Patient requesting to get appt set up. Last 3-4 weeks worsening of bladder discomfort and urge to urinate. Currently taking Detrol - ineffective. No dysuria. No burning. No hematuria. A couple of months ago, urine had a sweet smell. Hx of UTI in December 2021 - cleared up. SPINE: Patient to schedule follow up appt. Chronic left shoulder pain with radiation to elbow. Pain worsening the last month and half. Recent injection in December. Pain relief for a month. Currently taking gabapentin and extra strength tylenol - minimal relief. JANE: Uses breathing strips - does not use CPAP Sleeps well: No. Feels rested on awakening: No No daytime fatigue: Yes Snoring: No RHEUM: Hx of sicca syndrome. Stable. HYPERGLYCEMIA: Patient does not check sugars. A1c trending up. Last A1c was 6.3. Currently not treating. Patient watching diet - diet reviewed. REEVES: Stable. tx with extra tylenol PSYCH: Seeing psychiatry. Mood is stable. Good appetite and fluid intake. Still taking the zoloft. MEDICATIONS: Current Outpatient Medications Medication Sig sertraline (ZOLOFT) 25 mg tablet Take 25 mg by mouth twice daily. gabapentin (NEURONTIN) 300 mg capsule Take 1 capsule by mouth three times daily for 90 days. colestipol (COLESTID) 1 gram tablet Take 1 tablet by mouth twice daily. propranolol ER (INDERAL LA) 80 mg 24 hr capsule Take 1 capsule by mouth once daily. montelukast (SINGULAIR) 10 mg tablet Take 1 tablet by mouth daily at bedtime. tolterodine ER (DETROL LA) 4 mg 24 hr capsule Take 1 capsule by mouth once daily. fexofenadine HCl (JOVAN ORAL) Take by mouth. coenzyme Q10 (CO Q-10) 100 mg cap capsule Take 200 mg by mouth once daily. esomeprazole (NEXIUM 24HR) 20 mg capsule Take 1 capsule by mouth DAILY (6 AM). fluticasone (FLONASE) 50 mcg/actuation nasal spray Use 2 Sprays in each nostril once daily. Rinse mouth after use. COMPOUNDED PRESCRIPTION CPAP 9 cmH2O with humidification and a standard size ResMed AirFit N10 nasal mask without chin strap acetaminophen (TYLENOL EXTRA STRENGTH) 500 mg tablet Take 2 tablets by mouth every 6 hours as needed for Pain. Take every 6 hours for first three days. Then take every 6 hours as needed. polyethylene glycol 3350 (MIRALAX) 17 gram/dose powder Take 17 g by mouth once daily as needed (constipation). for constipation. Ascorbic Acid (VITAMIN C) 500 mg cpER Take 1 Each by mouth once daily. cholecalciferol (VITAMIN D) 1,000 unit tab tablet Take 1,000 Units by mouth once daily. multivitamins(MULTIPLE VITAMIN TAB) Take one(1) tablet daily. cephALEXin (KEFLEX) 500 mg capsule Take 1 capsule by mouth twice daily. (Patient not taking: Reported on 02/01/2022 ) cranberry fruit extract (CRANBERRY ORAL) Take by mouth. docusate sodium (COLACE) 100 mg capsule Take 1 capsule by mouth twice daily as needed for Constipation. sertraline (ZOLOFT) 50 mg tablet Take 50 mg by mouth once daily. (Patient not taking: Reported on 02/01/2022 ) No current facility-administered medications for this visit. ALLERGIES: ALLERGIES Allergen Reactions Pravachol [Pravasta* Itching November 20, 2010 -- itching without rash Lezckew-Zha-Dhz Red* Itching, Unknown Codeine chest pain & pressure Doxycycline Rash Blisters in mouth Levofloxacin Other: See Comments Itching. Penicillins Rash swell & uticaria Has used cephalosporins Sulfa (Sulfonamide * uticaria PAST MEDICAL HISTORY Diagnosis Date Bipolar I disorder, most recent episode (or current) unspecified Detrusor sphincter dyssynergia Headache has seen neurology and had mri, mra and mrv. HLD (hyperlipidemia) Major depressive disorder, single episode, unspecified Unspecified personal history presenting hazards to health PAST SURGICAL HISTORY Procedure Laterality Date CHOLECYSTECTOMY 1974 COLONOSCOPY 2001? COLONOSCOPY FLX DX W/COLLJ SPEC WHEN PFRMD 05/14/2014 Colonoscopy COLONOSCOPY FLX DX W/COLLJ SPEC WHEN PFRMD 07/03/2017 Colonoscopy ESOPHAGOGASTRODUODENOSCOPY TRANSORAL DIAGNOSTIC 07/03/2017 EGD ESOPHAGOGASTRODUODENOSCOPY TRANSORAL DIAGNOSTIC 06/22/2019 EGD PAST SURGICAL HISTORY OF 06/02/2017 sinus surgery PAST SURGICAL HISTORY OF 04/01/2018 uterine prolapse TOTAL ABDOMINAL HYSTERECT W/WO RMVL TUBE OVARY 1986 TAHBSO (benign), ovarian cysts, appendectomy FAMILY HISTORY Problem Relation Age of Onset Colon Cancer Mother Allergies Mother Heart disease Mother Diabetes Maternal Grandmother Coronary Artery Disease Maternal Grandmother Coronary Artery Disease Maternal Grandfather Coronary Artery Disease Father Hypertension Father Social History Tobacco Use Smoking status: Never Smoker Smokeless tobacco: Never Used Substance Use Topics Alcohol use: No Drug use: No Reviewed current medications, allergies, past medical history, surgical history, family history andsocial history today. REVIEW OF SYSTEMS All other reviewed and negative other than HPI. HEALTH MAINTENANCE: Reviewed health maintenance issues today and recommended the following in detail. SHINGRIX VACCINE(2 of 3) due on 06/11/2014. Discussed with patient. COVID-19 VACCINE(3 - Booster for Pfizer series) due on 05/06/2021. Discussed with patient. MAMMOGRAM due on 08/05/2021. Ordered. ADVANCE DIRECTIVE DISCUSSION Never done. VITALS: BP 146/94 Pulse 82 Resp 16 Wt 87.3 kg (192 lb 6.4 oz) BMI 33.03 kg/m Last 4 Encounter Wt Readings: Date: Wt: 03/28/2022 87.3 kg (192 lb 6.4 oz) 02/01/2022 87.8 kg (193 lb 8 oz) 01/15/2022 88 kg (194 lb) 12/21/2021 85.7 kg (189 lb) PHYSICAL EXAMINATION: General appearance: Well appearing, alert, in no acute distress, well-hydrated, well nourished. Skin: Skin color, texture, turgor normal, no suspicious rashes or lesions Head: Normocephalic, no masses, lesions, tenderness or abnormalities Eyes: Anicteric sclera. Pupils are equally round and reactive to light. Extraocular movements are intact. Hx of sicca syndrome. Jorge: Hx of DDD and cervical radiculopathy with spinal stenosis Lungs: Lungs clear to auscultation. No wheezing, rhonchi, rales Heart: RRR without murmur, gallop, or rubs. No ectopy Abdomen: Normal abdominal exam, Abdomen soft, non-tender. Bowel sounds normal. No masses, organomegaly Extremities: No deformities, edema, skin discoloration, clubbing or cyanosis. Good capillary refill. Musculoskeletal: negative. Neuro: Negative. ASSESSMENT/PLAN: 1. Impaired fasting glucose - ICD9: 790.21, ICD10: R73.01 (primary diagnosis) - check labs. - HGB A1C 2. Cervical radiculopathy - ICD9: 723.4, ICD10: M54.12 - return to see spine med - GABAPENTIN 300 MG CAPSULE - [facility]ULT [facility] 3. DDD (degenerative disc disease), cervical - ICD9: 722.4, ICD10: M50.30 - GABAPENTIN 300 MG CAPSULE - CON[facility]ULT TO [facility] 4. Spinal stenosis in cervical region - ICD9: 723.0, ICD10: M48.02 - GABAPENTIN 300 MG CAPSULE - CONSULT TO [facility] 5. Sicca syndrome (HCC) - ICD9: 710.2, ICD10: M35.00 - stable. 6. Panic disorder without agoraphobia - ICD9: 300.01, ICD10: F41.0 -doing well. 7. Bilateral carotid artery stenosis - ICD9: 433.10, 433.30, ICD10: I65.23 - stable. 8. Hyperlipidemia, unspecified hyperlipidemia type - ICD9: 272.4, ICD10: E78.5 - good control - Continue current medication. - CBC + DIFF - COMP METABOLIC PANEL 9. JANE (obstructive sleep apnea) - ICD9: 327.23, ICD10: G47.33 - stable. 10. Urge incontinence - ICD9: 788.31, ICD10: N39.41 - recheck urine and back to urology - URINALYSIS, WITH MICROSCOPIC - URINE CULTURE - CONSULT TO UROLOGY 11. Screening breast examination - ICD9: V76.10, ICD10: Z12.39 - Follow up for annual exam in one year. - ALBERTO SCREENING 12. Headache, unspecified headache type - ICD9: 784.0, ICD10: R51.9 Increase dose. bp and pulse check in one month - PROPRANOLOL ER 120 MG CAPSULE,24 HR,EXTENDED RELEASE 13. Primary hypertension - ICD9: 401.9, ICD10: I10 - suboptimal control - Increase inderal. - Goal of BP <130/80 - PROPRANOLOL ER 120 MG CAPSULE,24 HR,EXTENDED RELEASE Eulalio Sykes RTO in six months and prn. documented in this encounterT[facility]06-02-[facility]22 Instructions* Patient Instructions* Jonathan Mendoza PA-C - 02/01/2022 1:19 PM EDT EMG results were found to be normal: Study Interpretation Electrodiagnostic examination of the left upper extremity demonstrates no significant abnormalities. There is no significant evidence of compression neuropathy nor cervical radiculopathy. documented in this encounterTus[facility]06-02-2022 History of Present illness Narrative* Jonathan Mendoza PA-C - 02/01/2022 12:49 PM EDT Images from the original note were not included. [facility]endo[facility]-C [facility] [address] [id number] Dear Eulalio Sykes MD, Shirajag Shen is a very pleasant 71 year old female who comes in to the office on 02/01/2022 for follow-up regarding her Cervical spine. No pain at this moment. Pain comes and goes. Pain is not as bad as it was before, medication helps. Patient is here alone today. Subjective: Compared to her last visit she is improved. Ms. Shen is here for follow up after LEFT paramedian C5-[address] Pinedo on 01/04/22, injection helped 75%. She's interested in weaning her gabapentin now that she's feeling better. ROS: Since last visit-patient DENIES fevers, chills, night sweats, unexpected weight loss or gain, abdominal pain, progressive weakness, paralysis, loss of bowel/bladder control, saddle numbness, stumbling gait, loss of coordination. Current Outpatient Medications Medication Sig Dispense Refill sertraline (ZOLOFT) 25 mg tablet Take 25 mg by mouth twice daily. gabapentin (NEURONTIN) 300 mg capsule Take 1 capsule by mouth three times daily for 90 days. 90 capsule 2 colestipol (COLESTID) 1 gram tablet Take 1 tablet by mouth twice daily. 180 tablet 1 propranolol ER (INDERAL LA) 80 mg 24 hr capsule Take 1 capsule by mouth once daily. 90 capsule 3 montelukast (SINGULAIR) 10 mg tablet Take 1 tablet by mouth daily at bedtime. 90 tablet 3 tolterodine ER (DETROL LA) 4 mg 24 hr capsule Take 1 capsule by mouth once daily. 90 capsule 4 cranberry fruit extract (CRANBERRY ORAL) Take by mouth. fexofenadine HCl (JOVAN ORAL) Take by mouth. coenzyme Q10 (CO Q-10) 100 mg cap capsule Take 200 mg by mouth once daily. esomeprazole (NEXIUM 24HR) 20 mg capsule Take 1 capsule by mouth DAILY (6 AM). fluticasone (FLONASE) 50 mcg/actuation nasal spray Use 2 Sprays in each nostril once daily. Rinse mouth after use. 1 Bottle 0 acetaminophen (TYLENOL EXTRA STRENGTH) 500 mg tablet Take 2 tablets by mouth every 6 hours as needed for Pain. Take every 6 hours for first three days. Then take every 6 hours as needed. 60 tablet 0 docusate sodium (COLACE) 100 mg capsule Take 1 capsule by mouth twice daily as needed for Constipation. 60 capsule 0 polyethylene glycol 3350 (MIRALAX) 17 gram/dose powder Take 17 g by mouth once daily as needed (constipation). for constipation. 1 Bottle 1 Ascorbic Acid (VITAMIN C) 500 mg cpER Take 1 Each by mouth once daily. cholecalciferol (VITAMIN D) 1,000 unit tab tablet Take 1,000 Units by mouth once daily. multivitamins(MULTIPLE VITAMIN TAB) Take one(1) tablet daily. 0 cephALEXin (KEFLEX) 500 mg capsule Take 1 capsule by mouth twice daily. (Patient not taking: Reported on 02/01/2022 ) 14 capsule 0 COMPOUNDED PRESCRIPTION CPAP 9 cmH2O with humidification and a standard size ResMed AirFit N10 nasal mask without chin strap (Patient not taking: Reported on 02/01/2022 ) 1 Each 0 sertraline (ZOLOFT) 50 mg tablet Take 50 mg by mouth once daily. (Patient not taking: Reported on 02/01/2022 ) No current facility-administered medications for this visit. Exam: Blood pressure 132/73, pulse 66, height 162.6 cm (5' 4), weight 87.8 kg (193 lb 8 oz), SpO2 100 %. Body mass index is 33.21 kg/m . Station and Gait: Normal stance, normal gait. Motor: No focal weakness identified Sensory: No more N/T in LUE/hand Pain on Palpation: upper lateral left deltoid area--milder pain overall Imaging: No new imaging studies were reviewed during this office visit. Assessment/Plan: Encounter Diagnosis ICD-10-CM 1. Cervical radiculopathy M54.12 2. Spinal stenosis in cervical region M48.02 3. Numbness and tingling in left hand R20.0 R20.2 RTC: on an as-needed basis (PRN) Other/Discussion: doing very well at this point. Will wean gabapentin and gradually ramp up her activity as tolerated, If symptoms return, she will restart gabapentin and diminish activity and return for a recheck. Time spent: 25 minutes today with this patient visit. This includes alak-dj-nrjo time, review of chart records regarding conservative care history, spine- pertinent imaging, and communication/care coordination with referring provider, problem-specific history-taking and counseling/education regarding treatment options. This document has been created with the use of voice recognition technology. It may contain inaccuracies: (e.g. misspellings, inaccurate syntax or word sense) that have escaped review. JESSY Naik MA documented in this encounterT[facility]05-19-2022 Miscellaneous Notes* Telephone Encounter - Gisel Eid RN - 01/18/2022 11:49 AM EDT Patient has been identified by name and date of : Yes Patient phones for refill(s): Pending Prescriptions Disp Refills GABAPENTIN 300 MG CAPSULE 90 capsule 2 Sig: Take 1 capsule by mouth three times daily for 90 days. LANDRY: No COLESTIPOL 1 GRAM TABLET 180 tablet 1 Sig: Take 1 tablet by mouth twice daily. LANDRY: No Date of last office visit in primary care: 01/15/22 Future visit: 03/28/22 Last 2 Encounter Wt Readings: Date: Wt: 01/15/2022 88 kg (194 lb) 12/21/2021 85.7 kg (189 lb) Previous labs/tests for medication: Cholesterol: HDL Cholesterol (mg/dL) Date Value 03/25/2021 33 LDL Cholesterol (mg/dL) Date Value 03/25/2021 Unable to calculate due to increased Triglycerides. See LDL-Chol, Direct. ALT (U/L) Date Value 09/25/2021 45 Non HDL Cholesterol (mg/dL) Date Value 03/25/2021 201 Blood Pressure: BUN (mg/dL) Date Value 09/25/2021 14 Sodium (mmol/L) Date Value 09/25/2021 138 Last 1 Encounter BP Readings: Date: BP: 01/15/2022 132/68 Liver Function: ALT (U/L) Date Value 09/25/2021 45 AST (U/L) Date Value 09/25/2021 73 Please advise. Thank you. Gisel Eid, RN documented in this encounterTuscaraw[facility]05-02-2022 History of Present illness Narrative* Fernando Canales MD - 01/01/2022 1:32 PM EDT UNIVERSAL PROTOCOL / SAFETY CHECKLIST Procedure to be Performed: EMG Sign In: A Moment of CARE was completed. Personnel directly involved with the procedure wore the appropriate PPE (Personal Protective Equipment). Patient/Surrogate Stated/Verified: PATIENT VERIFIED(optional for EMERGENT procedures): Patient name, Date of , Relevant allergies and The intended procedure Time Out Communication: Intended patient and procedure match the source documents. Correct side/site marked and visible. Sign Out: SIGN OUT (optional for EMERGENT procedures): Post-procedure follow-up management communicated and Plan of Care Visit completed when applicable. RENZO Mead. Fernando Canales MD documented in this encounterTuscaraw[facility]04-14-2022 Miscellaneous Notes* Telephone Encounter - Danielle Howard MA - 12/14/2021 12:59 PM EDT Message was sent to the patient via [employer], about sooner appointment Danielle Howard MA * Telephone Encounter - Jonathan Mendoza PA-C - 12/14/2021 11:37 AM EDT It looks like she has an appointment to come back in and see me on January 10. It sounds like her symptoms are quite bothersome and if she would like to stop in a little sooner, that would be fine as well. I am not sure what other changes we can make for her in the meantime but I would like to hear fabien did following that cervical injection. Jonathan Mendoza PA-C * Telephone Encounter - Danielle Howard MA - 12/14/2021 11:04 AM EDT Please see patients MyChart message Thank you Danielle Howard MA * Telephone Encounter - Zulema Dwyer - 12/14/2021 10:13 AM EDT Patient calls in this morning wanting to speak with someone about her pain. She says she is in terrible pain. Patient has seen Jonathan in the past as well as a procedure with Dr. Pinedo. She did specifically ask for Jonathan when she called. Please advise Thank you Zulema Emery Pss documented in this encounterTuscaraw[facility]04-11-2022 Miscellaneous Notes* Telephone Encounter - Eulalio Sykes MD - 12/11/2021 11:27 AM EDT bp is ok. * Telephone Encounter - Jacklyn Trejo LPN - 12/11/2021 10:26 AM EDT Manual Readin/80 Pulse: 80 BP Apurva average: 132/76 P: 77 Repeat BP Check: 134/78 P78 #1 128/74 P76 #2 132/77 P76 #3 129/75 P76 #4 133/77 P77 #5 135/73 P77 #6 Reason for blood pressure check - Last BP elevated and Medication adjustment Patient is: Taking medication as prescribed Yes Took medication today Yes If no, date medication last taken N/A Experiencing side effects No BP was elevated at last appt 11/08/21. Propranolol was increased to 80mg daily. Tolerating medicationchange well. Pt reports that she continues with left arm pain. Denies any chest pain, shortness of breath, dizziness, or headaches. Daily caffeine use; none today. No personal history of tobacco use;no current exposure. Alert and oriented. Pt has been identified by name and birthdate: Yes Allergies reviewed: Yes Latex allergy: no. Medication - prescribed and OTC reviewed and updated: Yes Do you need any prescription refills prior to your next visit: No Health Maintenance: Reviewed and not up to date and provider notified Patient advised that she would be contacted after review by PCP. Jacklyn Trejo LPN documented in this encounterTuscaraw[facility]04-11-2022 History of Present illness Narrative* Jacklyn Trejo LPN - 12/11/2021 10:25 AM EDT Manual Readin/80 Pulse: 80 BP Apurva average: 132/76 P: 77 Repeat BP Check: 134/78 P78 #1 128/74 P76 #2 132/77 P76 #3 129/75 P76 #4 133/77 P77 #5 135/73 P77 #6 Reason for blood pressure check - Last BP elevated and Medication adjustment Patient is: Taking medication as prescribed Yes Took medication today Yes If no, date medication last taken N/A Experiencing side effects No BP was elevated at last appt 11/08/21. Propranolol was increased to 80mg daily. Tolerating medicationchange well. Pt reports that she continues with left arm pain. Denies any chest pain, shortness of breath, dizziness, or headaches. Daily caffeine use; none today. No personal history of tobacco use;no current exposure. Alert and oriented. Pt has been identified by name and birthdate: Yes Allergies reviewed: Yes Latex allergy: no. Medication - prescribed and OTC reviewed and updated: Yes Do you need any prescription refills prior to your next visit: No Health Maintenance: Reviewed and not up to date and provider notified Patient advised that she would be contacted after review by PCP. Jacklyn Trejo LPN documented in this encounterTuscarawas [facility]12-30-2021 History of Present illness Narrative* Minoo Berry RT(R) - 08/31/2021 3:00 PM EST Radiology Service Progress Note PATIENT NAME: Shira Shen DATE OF SERVICE: August 31, 2021 TIME: 3:17 PM PATIENT IDENTITY VERIFICATION COMPLETED USING TWO (2) IDENTIFIERS: Name and Date of confirmedby patient verbally. FALL SCREENING: Has the patient had 2 falls in the last year or 1 fall with injury or currently using an Ambulatory Assistive Device (Walker, Cane, Wheelchair, Crutches, etc.)? No PATIENT GENDER DATA: Female. status: : No status: NO. PATIENT RELEVANT IMPLANT DATA REVIEWED: Yes RADIOLOGY DEPARTMENT: General X-ray: Exam(s) Completed: Upper Extremity X- Ray(s): Shoulder, AP / TRUE AP / AXILLARY left PERIPHERAL IV DATA: Not applicable SIGNED BY: RT Mary(R) August 31, 2021 3:17 PM documented in this encounterTuscarawas Hospital10-23-2017 History of Past illness Narrative* Problem Noted Date Resolved Date Lower abdominal pain 06/24/2017 12/06/2017 Overview: Added automatically from request for surgery [id number] Family history of colon cancer 02/26/2014 0 12/24/2014 Routine general medical exam ination at a health care facility 05/19/2009 12/24/2014 Overview: 05/19/2009, from Dr. Pandya Routine gynecological examination 05/19/2009 12/24/2014 Overview: Has not had in many years as of 05/2009 Major depressive disorder, single episode, unspe cified 12/13/2007 Detrusor sphincter dyssynergia 0 12/13/2007 Unspecified personal history presenting hazards to health 12/13/2007 Headache 12/06/2017 documented as of this encounter (statuses as of 12/11/2021) [facility] History of Past illness Narrative* Problem Noted Date Resolved Date Lower abdominal pain 06/24/2017 12/06/2017 Overview: Added automatically from request for surgery [id number] Family history of colon cancer 02/26/2014 0 12/24/2014 Routine general medical exam ination at a health care facility 05/19/2009 12/24/2014 Overview: 05/19/2009, from Dr. Pandya Routine gynecological examination 05/19/2009 12/24/2014 Overview: Has not had in many years as of 05/2009 Major depressive disorder, single episode, unspe cified 12/13/2007 Detrusor sphincter dyssynergia 0 12/13/2007 Unspecified personal history presenting hazards to health 12/13/2007 Headache 12/06/2017 documented as of this encounter (statuses as of 12/11/2021) [facility] History of Past illness Narrative* Problem Noted Date Resolved Date Lower abdominal pain 06/24/2017 12/06/2017 Overview: Added automatically from request for surgery [id number] Family history of colon cancer 02/26/2014 0 12/24/2014 Routine general medical exam ination at a health care facility 05/19/2009 12/24/2014 Overview: 05/19/2009, from Dr. Pandya Routine gynecological examination 05/19/2009 12/24/2014 Overview: Has not had in many years as of 05/2009 Major depressive disorder, single episode, unspe cified 12/13/2007 Detrusor sphincter dyssynergia 0 12/13/2007 Unspecified personal history presenting hazards to health 12/13/2007 Headache 12/06/2017 documented as of this encounter (statuses as of 12/14/2021) [facility] of Past illness Narrative* Problem Noted Date Resolved Date Lower abdominal pain 06/24/2017 12/06/2017 Overview: Added automatically from request for surgery [id number] Family history of colon cancer 02/26/2014 0 12/24/2014 Routine general medical exam ination at a health care facility 05/19/2009 12/24/2014 Overview: 05/19/2009, from Dr. Pandya Routine gynecological examination 05/19/2009 12/24/2014 Overview: Has not had in many years as of 05/2009 Major depressive disorder, single episode, unspe cified 12/13/2007 Detrusor sphincter dyssynergia 0 12/13/2007 Unspecified personal history presenting hazards to health 12/13/2007 Headache 12/06/2017 documented as of this encounter (statuses as of 12/21/2021) [facility] of Past illness Narrative* Problem Noted Date Resolved Date Lower abdominal pain 06/24/2017 12/06/2017 Overview: Added automatically from request for surgery [id number] Family history of colon cancer 02/26/2014 0 12/24/2014 Routine general medical exam ination at a health care facility 05/19/2009 12/24/2014 Overview: 05/19/2009, from Dr. Pandya Routine gynecological examination 05/19/2009 12/24/2014 Overview: Has not had in many years as of 05/2009 Major depressive disorder, single episode, unspe cified 12/13/2007 Detrusor sphincter dyssynergia 0 12/13/2007 Unspecified personal history presenting hazards to health 12/13/2007 Headache 12/06/2017 documented as of this encounter (statuses as of 01/01/2022) [facility] of Past illness Narrative* Problem Noted Date Resolved Date Lower abdominal pain 06/24/2017 12/06/2017 Overview: Added automatically from request for surgery [id number] Family history of colon cancer 02/26/2014 0 12/24/2014 Routine general medical exam ination at a health care facility 05/19/2009 12/24/2014 Overview: 05/19/2009, from Dr. Pandya Routine gynecological examination 05/19/2009 12/24/2014 Overview: Has not had in many years as of 05/2009 Major depressive disorder, single episode, unspe cified 12/13/2007 Detrusor sphincter dyssynergia 0 12/13/2007 Unspecified personal history presenting hazards to health 12/13/2007 Headache 12/06/2017 documented as of this encounter (statuses as of 01/03/2022) [facility] of Past illness Narrative* Problem Noted Date Resolved Date Lower abdominal pain 06/24/2017 12/06/2017 Overview: Added automatically from request for surgery [id number] Family history of colon cancer 02/26/2014 0 12/24/2014 Routine general medical exam ination at a health care facility 05/19/2009 12/24/2014 Overview: 05/19/2009, from Dr. Pandya Routine gynecological examination 05/19/2009 12/24/2014 Overview: Has not had in many years as of 05/2009 Major depressive disorder, single episode, unspe cified 12/13/2007 Detrusor sphincter dyssynergia 0 12/13/2007 Unspecified personal history presenting hazards to health 12/13/2007 Headache 12/06/2017 documented as of this encounter (statuses as of 01/04/2022) [facility] of Past illness Narrative* Problem Noted Date Resolved Date Lower abdominal pain 06/24/2017 12/06/2017 Overview: Added automatically from request for surgery [id number] Family history of colon cancer 02/26/2014 0 12/24/2014 Routine general medical exam ination at a health care facility 05/19/2009 12/24/2014 Overview: 05/19/2009, from Dr. Pandya Routine gynecological examination 05/19/2009 12/24/2014 Overview: Has not had in many years as of 05/2009 Major depressive disorder, single episode, unspe cified 12/13/2007 Detrusor sphincter dyssynergia 0 12/13/2007 Unspecified personal history presenting hazards to health 12/13/2007 Headache 12/06/2017 documented as of this encounter (statuses as of 01/04/2022) [facility] of Past illness Narrative* Problem Noted Date Resolved Date Lower abdominal pain 06/24/2017 12/06/2017 Overview: Added automatically from request for surgery [id number] Family history of colon cancer 02/26/2014 0 12/24/2014 Routine general medical exam ination at a health care facility 05/19/2009 12/24/2014 Overview: 05/19/2009, from Dr. Pandya Routine gynecological examination 05/19/2009 12/24/2014 Overview: Has not had in many years as of 05/2009 Major depressive disorder, single episode, unspe cified 12/13/2007 Detrusor sphincter dyssynergia 0 12/13/2007 Unspecified personal history presenting hazards to health 12/13/2007 Headache 12/06/2017 documented as of this encounter (statuses as of 01/18/2022) [facility] Past illness Narrative* Problem Noted Date Resolved Date Lower abdominal pain 06/24/2017 12/06/2017 Overview: Added automatically from request for surgery [id number] Family history of colon cancer 02/26/2014 0 12/24/2014 Routine general medical exam ination at a health care facility 05/19/2009 12/24/2014 Overview: 05/19/2009, from Dr. Pandya Routine gynecological examination 05/19/2009 12/24/2014 Overview: Has not had in many years as of 05/2009 Major depressive disorder, single episode, unspe cified 12/13/2007 Detrusor sphincter dyssynergia 0 12/13/2007 Unspecified personal history presenting hazards to health 12/13/2007 Headache 12/06/2017 documented as of this encounter (statuses as of 02/01/2022) [facility] of Past illness Narrative* Problem Noted Date Resolved Date Lower abdominal pain 06/24/2017 12/06/2017 Overview: Added automatically from request for surgery [id number] Family history of colon cancer 02/26/2014 0 12/24/2014 Routine general medical exam ination at a health care facility 05/19/2009 12/24/2014 Overview: 05/19/2009, from Dr. Pandya Routine gynecological examination 05/19/2009 12/24/2014 Overview: Has not had in many years as of 05/2009 Major depressive disorder, single episode, unspe cified 12/13/2007 Detrusor sphincter dyssynergia 0 12/13/2007 Unspecified personal history presenting hazards to health 12/13/2007 Headache 12/06/2017 documented as of this encounter (statuses as of 03/28/2022) [facility] of Past illness Narrative* Problem Noted Date Resolved Date Lower abdominal pain 06/24/2017 12/06/2017 Overview: Added automatically from request for surgery [id number] Family history of colon cancer 02/26/2014 0 12/24/2014 Routine general medical exam ination at a health care facility 05/19/2009 12/24/2014 Overview: 05/19/2009, from Dr. Pandya Routine gynecological examination 05/19/2009 12/24/2014 Overview: Has not had in many years as of 05/2009 Major depressive disorder, single episode, unspe cified 12/13/2007 Detrusor sphincter dyssynergia 0 12/13/2007 Unspecified personal history presenting hazards to health 12/13/2007 Headache 12/06/2017 documented as of this encounter (statuses as of 03/30/2022) [facility] of [facility] illness Narrative* Problem Noted Date Resolved Date Lower abdominal pain 06/24/2017 12/06/2017 Overview: Added automatically from request for surgery [id number] Family history of colon cancer 02/26/2014 0 12/24/2014 Routine general medical exam ination at a health care facility 05/19/2009 12/24/2014 Overview: 05/19/2009, from Dr. Pandya Routine gynecological examination 05/19/2009 12/24/2014 Overview: Has not had in many years as of 05/2009 Major depressive disorder, single episode, unspe cified 12/13/2007 Detrusor sphincter dyssynergia 0 12/13/2007 Unspecified personal history presenting hazards to health 12/13/2007 Headache 12/06/2017 documented as of this encounter (statuses as of 03/30/2022) [facility] illness Narrative* Problem Noted Date Resolved Date Lower abdominal pain 06/24/2017 12/06/2017 Overview: Added automatically from request for surgery [id number] Family history of colon cancer 02/26/2014 0 12/24/2014 Routine general medical exam ination at a health care facility 05/19/2009 12/24/2014 Overview: 05/19/2009, from Dr. Pandya Routine gynecological examination 05/19/2009 12/24/2014 Overview: Has not had in many years as of 05/2009 Major depressive disorder, single episode, unspe cified 12/13/2007 Detrusor sphincter dyssynergia 0 12/13/2007 Unspecified personal history presenting hazards to health 12/13/2007 Headache 12/06/2017 documented as of this encounter (statuses as of 04/18/2022) [facility] illness Narrative* Problem Noted Date Resolved Date Lower abdominal pain 06/24/2017 12/06/2017 Overview: Added automatically from request for surgery [id number] Family history of colon cancer 02/26/2014 0 12/24/2014 Routine general medical exam ination at a health care facility 05/19/2009 12/24/2014 Overview: 05/19/2009, from Dr. Pandya Routine gynecological examination 05/19/2009 12/24/2014 Overview: Has not had in many years as of 05/2009 Major depressive disorder, single episode, unspe cified 12/13/2007 Detrusor sphincter dyssynergia 0 12/13/2007 Unspecified personal history presenting hazards to health 12/13/2007 Headache 12/06/2017 documented as of this encounter (statuses as of 04/26/2022) [facility] Past illness Narrative* Problem Noted Date Resolved Date Lower abdominal pain 06/24/2017 12/06/2017 Overview: Added automatically from request for surgery [id number] Family history of colon cancer 02/26/2014 0 12/24/2014 Routine general medical exam ination at a health care facility 05/19/2009 12/24/2014 Overview: 05/19/2009, from Dr. Pandya Routine gynecological examination 05/19/2009 12/24/2014 Overview: Has not had in many years as of 05/2009 Major depressive disorder, single episode, unspe cified 12/13/2007 Detrusor sphincter dyssynergia 0 12/13/2007 Unspecified personal history presenting hazards to health 12/13/2007 Headache 12/06/2017 documented as of this encounter (statuses as of 05/04/2022) [facility] illness Narrative* Problem Noted Date Resolved Date Lower abdominal pain 06/24/2017 12/06/2017 Overview: Added automatically from request for surgery [id number] Family history of colon cancer 02/26/2014 0 12/24/2014 Routine general medical exam ination at a health care facility 05/19/2009 12/24/2014 Overview: 05/19/2009, from Dr. Pandya Routine gynecological examination 05/19/2009 12/24/2014 Overview: Has not had in many years as of 05/2009 Major depressive disorder, single episode, unspe cified 12/13/2007 Detrusor sphincter dyssynergia 0 12/13/2007 Unspecified personal history presenting hazards to health 12/13/2007 Headache 12/06/2017 documented as of this encounter (statuses as of 06/19/2022) [facility] Narrative* Problem Noted Date Resolved Date Lower abdominal pain 06/24/2017 12/06/2017 Overview: Added automatically from request for surgery [id number] Family history of colon cancer 02/26/2014 0 12/24/2014 Routine general medical exam ination at a health care facility 05/19/2009 12/24/2014 Overview: 05/19/2009, from Dr. Pandya Routine gynecological examination 05/19/2009 12/24/2014 Overview: Has not had in many years as of 05/2009 Major depressive disorder, single episode, unspe cified 12/13/2007 Detrusor sphincter dyssynergia 0 12/13/2007 Unspecified personal history presenting hazards to health 12/13/2007 Headache 12/06/2017 documented as of this encounter (statuses as of 11/08/2022) [facility] Narrative* Problem Noted Date Resolved Date Lower abdominal pain 06/24/2017 12/06/2017 Overview: Added automatically from request for surgery [id number] Family history of colon cancer 02/26/2014 0 12/24/2014 Routine general medical exam ination at a health care facility 05/19/2009 12/24/2014 Overview: 05/19/2009, from Dr. Pandya Routine gynecological examination 05/19/2009 12/24/2014 Overview: Has not had in many years as of 05/2009 Major depressive disorder, single episode, unspe cified 12/13/2007 Detrusor sphincter dyssynergia 0 12/13/2007 Unspecified personal history presenting hazards to health 12/13/2007 Headache 12/06/2017 documented as of this encounter (statuses as of 12/14/2022) [facility] of Past illness Narrative* Problem Noted Date Resolved Date Lower abdominal pain 06/24/2017 12/06/2017 Overview: Added automatically from request for surgery [id number] Family history of colon cancer 02/26/2014 0 12/24/2014 Routine general medical exam ination at a health care facility 05/19/2009 12/24/2014 Overview: 05/19/2009, from Dr. Pandya Routine gynecological examination 05/19/2009 12/24/2014 Overview: Has not had in many years as of 05/2009 Major depressive disorder, single episode, unspe cified 12/13/2007 Detrusor sphincter dyssynergia 0 12/13/2007 Unspecified personal history presenting hazards to health 12/13/2007 Headache 12/06/2017 documented as of this encounter (statuses as of 01/31/2023) [facility] of [facility] illness Narrative* Problem Noted Date Resolved Date Lower abdominal pain 06/24/2017 12/06/2017 Overview: Added automatically from request for surgery [id number] Family history of colon cancer 02/26/2014 0 12/24/2014 Routine general medical exam ination at a health care facility 05/19/2009 12/24/2014 Overview: 05/19/2009, from Dr. Pandya Routine gynecological examination 05/19/2009 12/24/2014 Overview: Has not had in many years as of 05/2009 Major depressive disorder, single episode, unspe cified 12/13/2007 Detrusor sphincter dyssynergia 0 12/13/2007 Unspecified personal history presenting hazards to health 12/13/2007 Headache 12/06/2017 documented as of this encounter (statuses as of 02/15/2023) [facility] Narrative* Problem Noted Date Resolved Date Lower abdominal pain 06/24/2017 12/06/2017 Overview: Added automatically from request for surgery [id number] Family history of colon cancer 02/26/2014 0 12/24/2014 Routine general medical exam ination at a health care facility 05/19/2009 12/24/2014 Overview: 05/19/2009, from Dr. Pandya Routine gynecological examination 05/19/2009 12/24/2014 Overview: Has not had in many years as of 05/2009 Major depressive disorder, single episode, unspe cified 12/13/2007 Detrusor sphincter dyssynergia 0 12/13/2007 Unspecified personal history presenting hazards to health 12/13/2007 Headache 12/06/2017 documented as of this encounter (statuses as of 03/06/2023) [facility] Narrative* Problem Noted Date Diagnosed Date Resolved Date Lower abdominal pain 06/24/2017 018 Overview: Added automatically from request for surgery [id number] Family history of colon cancer 02/26/2014 12/24/2014 Routine general medical exam ination at a health care facility 05/19/2009 12/24/2014 Overview: 05/19/2009, from Dr. Pandya Routine gynecological examination 05/19/2009 12/24/2014 Overview: Has not had in many years as of 05/2009 Major depressive disorder, s juan miguel episode, unspecified 12/13/2007 Detrusor sphincter dyssynergia 12/13/2007 Unspecified personal history presenting hazards to health 12/13/2007 Headache 12/06/2017 documented as of this encounter (statuses as of 03/11/2023) [facility] October 25, 2022 8:18am Note Date/Time October 25, 2022 8:16am [facility] Medical Records Department [address] [place] [address] Instructions for Home/Discharge Instructions 10/25/2215 MR#: [id number] Acct: [id number] Name: SHIRA SHEN Rep #:[id number] : 1950 72 From: Monse Manzano PCP: Dr. Nimisha Olvera MD Status:REG [facility] Discharge Instructions Diet Discharge Diet: No restrictions Activity Discharge Activity: May Drive and May Shower (tomorrow) May resume sexual activity in: 2 weeks Dressing / Incision Call your doctor if your incision/area has: Continuous Slow Oozing, Sudden Increased Bleeding, Increased Pain/ Swelling, Increased Redness, Foul Smelling Discharge and Swelling at the incision site Call your doctor if you observe: Fever of 101 or Higher, Inability to urinate and Inability to have a bowel movement Remove Dressing in: leave until fall off Follow Up Care Please Follow Up With: Monse Pro MD When: Call the office for an appointment to be seen in 2 to 3 weeks Test Results: Test results from this visit will be discussed in further detail at your follow- up appointment, if applicable. Discharge Plan Admission Attending Provider: Monse Pro Primary Care Provider: Nimisha Olvera Discharge Orders/Prescriptions Prescriptions: New oxycodone-acetaminophen [Percocet] 5-325 mg tablet 1 tab PO Q8H PRN (Reason: pain) 3 Days Qty: 9 0RF cephalexin [cephalexin] 500 mg capsule 500 mg PO Q12 3 Days Qty: 6 0RF Continued multivitamin [Daily Multiple] 1 EACH tablet 1 ea PO DAILY Label Comments: Supplement ascorbic acid (vitamin C) [C-1000] 1,000 MG tablet 500 mg PO DAILY Label Comments: Vitamin C supplement sertraline 50 MG tablet 25 mg PO BID Label Comments: Depression/anxiety cholecalciferol (vitamin D3) [Vitamin D3] 1,000 UNIT tablet 1,000 unit PO DAILY aspirin 81 mg Tablet 81 mg PO DAILY acetaminophen [Tylenol] 325 mg Tablet 1,000 mg PO Q6H PRN (Reason: Pain (Scale Score 1-10)) fluticasone propionate 50 mcg/actuation [place],Suspension 2 spray INTRANASAL DAILY Rx Instructions: administer into each nostril coenzyme Q10 [Co Q-10] 200 mg Capsule 200 mg PO DAILY propranolol 60 mg Capsule,Extended Release 24 Hr 120 mg PO DAILY Qty: 30 0RF cranberry 500 mg Capsule 500 mg PO DAILY Rx Instructions: administer with meals Metamucil 3.4 gram/5.4 gram powder 1 tbsp PO PRN PRN (Reason: Constipation) Rx Instructions: mix into at least 8 oz of water or juice before administering omeprazole magnesium [Prilosec OTC] 20 mg Tablet,Delayed Release (Dr/Ec) 40 mg PO DAILY Probiotic Acidophilus 1.5 mg (250 million cell) Capsule 1,000 mmu cells PO DAILY oxycodone-acetaminophen [Percocet] 5-325 mg tablet 1 tab PO Q8H PRN (Reason: pain) 3 Days Qty: 10 0RF cephalexin 500 mg capsule 500 mg PO Q12 3 Days Qty: 6 0RF amlodipine [Norvasc] 2.5 mg tablet 2.5 mg PO DAILY Qty: 30 5RF atorvastatin 40 mg tablet 40 mg PO DAILY Qty: 30 5RF montelukast [Singulair] 10 mg tablet 10 mg PO QHS Qty: 30 5RF gabapentin 400 mg capsule 400 mg PO 4X/DAY Qty: 120 0RF Label Comments: 1 at breakfast, 1 at lunch, 2 at dinner. Referrals / Follow Up: Nimisha Olvera MD [Primary Care Provider] - Disposition Disposition (needs filled in before D/C Order can be placed): Home, Self Care 10/25/22817<Electronically signed by Monse Pro MD>Monse Pro MD CC: Dr. Nimisha Olvera MD ~ Signed [facility] Work Phone: Evaluation note* Diagnosis Elevated blood pressure reading without diagnosis of hypertension- Primary [facility] Diagnosis Neck pain on left side- Primary Cervicalgia Cervical radiculopathy Brachial neuritis or radiculitis nos Numbness and tingling in left hand Disturbance of skin sensation Spinal stenosis in cervical region [facility] Diagnosis Cervical radiculopathy Brachial neuritis or radiculitis nos Spinal stenosis in cervical region Numbness and tingling in left hand Disturbance of skin sensation Cervical radiculopathy Brachial neuritis or radiculitis nos Numbness and tingling in left hand Disturbance of skin sensation Spinal stenosis in cervical region [facility] Diagnosis Cervical radiculopathy Brachial neuritis or radiculitis nos DDD (degenerative disc disease), cervical Degeneration of cervical intervertebral disc Spinal stenosis in cervical region [facility] Diagnosis Cervical radiculopathy- Primary Brachial neuritis or radiculitis nos Spinal stenosis in cervical region Numbness and tingling in left hand Disturbance of skin sensation [facility]* Diagnosis Impaired fasting glucose- Primary Cervical radiculopathy Brachial neuritis or radiculitis nos DDD (degenerative disc disease), cervical Degeneration of cervical intervertebral disc Spinal stenosis in cervical region Sicca syndrome (HCC) Sicca syndrome Panic disorder without agoraphobia Bilateral carotid artery stenosis Occlusion and stenosis of carotid artery without mention of cerebral infarction Hyperlipidemia, unspecified hyperlipidemia type JANE (obstructive sleep apnea) Obstructive sleep apnea (adult) (pediatric) Urge incontinence Screening breast examination Breast screening, unspecified Headache, unspecified headache type Primary hypertension Unspecified essential hypertension [facility] noteNo assessment information availableWMorrow [facility] Work Phone: Evaluation note* Diagnosis Cerebrovascular accident (CVA), unspecified mechanism (HCC)- Primary documented in this encounter [facility] note* Diagnosis Onset Date Resolution Status Abnormal transaminases acute Cerebrovascular disease acut e 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 Dysphagia acute Facial droop due to acute ce rebrovascular accident (CVA) acute GERD (gastroesophageal reflux disease) acute Ischemic cerebrovascular accident (CVA) acute Normochromic normocytic anemia acute Obesity (BMI 30.0-34.9) acut e JANE (obstructive sleep apnea) acute Overactive bladder acute Physical debility acute Prediabetes acute Radicular pain in left arm a cute Right hemiparesis acute HLD (hyperlipidemia) chronic HTN (hypertension) [facility] Work Phone: Evaluation note* Diagnosis 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)- Primary Unspecified cerebral artery occlusion with cerebral infarction Right hemiparesis (HCC) Hemiplegia, unspecified, affecting unspecified side Mixed hyperlipidemia Primary hypertension Unspecified essential hypertension JANE (obstructive sleep apnea) Obstructive sleep apnea (adult) (pediatric) documented in this encounter [facility] note* Diagnosis Onset Date Resolution Status Abnormal transaminases acute 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 Dysphagia acute Facial droop due to acute ce rebrovascular accident (CVA) acute GERD (gastroesophageal reflux disease) acute Ischemic cerebrovascular accident (CVA) acute JANE (obstructive sleep apnea) acute Overactive bladder acute Physical debility acute Prediabetes acute Right hemiparesis resolved JANE (obstructive sleep apnea) acute Bipolar 1 disorder acute Chronic central neuropathic pain acute Essential hypertension acute Ischemic cerebrovascular accident (CVA) acute Mixed hyperlipidemia acute JANE (obstructive sleep apnea) acute Overactive bladder acute Prediabetes acute Screening for colon cancer n oneactive Establishing care with new doctor, encounter for noneactive Screening for breast cancer noneactive GERD (gastroesophageal reflux disease) acute Screening for colon cancer n oneactive Family history of colon cancer noneactive Constipation noneactive [facility] Work Phone: Evaluation note* Diagnosis Cerebrovascular accident (CVA) due to occlusion of small artery (HCC)- Primary Right sided weakness Muscle weakness (generalized) Right sided numbness JANE (obstructive sleep apnea) Obstructive sleep apnea (adult) (pediatric) Mixed hyperlipidemia Primary hypertension Unspecified essential hypertension Type 2 diabetes mellitus without complication, without long-term current use of insulin ([facility]) [facility] Onset Date Resolution Status Abnormal transaminases acute 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 Dysphagia acute Facial droop due to acute ce rebrovascular accident (CVA) acute GERD (gastroesophageal reflux disease) acute Ischemic cerebrovascular accident (CVA) acute JANE (obstructive sleep apnea) acute Overactive bladder acute Physical debility acute Prediabetes acute Right hemiparesis resolved JANE (obstructive sleep apnea) acute Bipolar 1 disorder acute Chronic central neuropathic pain acute Essential hypertension acute Ischemic cerebrovascular accident (CVA) acute Mixed hyperlipidemia acute JANE (obstructive sleep apnea) acute Overactive bladder acute Prediabetes acute Screening for colon cancer n oneactive Establishing care with new doctor, encounter for noneactive Screening for breast cancer noneactive GERD (gastroesophageal reflux disease) acute Screening for colon cancer n oneactive Family history of colon cancer noneactive Constipation noneactive Bipolar 1 disorder acute 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) acute JANE (obstructive sleep apnea) acute Bipolar 1 disorder acute Chronic central neuropathic pain acute Essential hypertension acute GERD (gastroesophageal reflux disease) acute Ischemic cerebrovascular accident (CVA) acute Mixed hyperlipidemia acute JANE (obstructive sleep apnea) acute Overactive bladder acute Prediabetes acute Family history of colon cancer noneactive [facility] Work Phone: Evaluation note* Diagnosis Onset Date Resolution Status Bipolar 1 disorder acute Chronic central neuropathic pain acute Essential hypertension acute Ischemic cerebrovascular accident (CVA) acute Mixed hyperlipidemia acute JANE (obstructive sleep apnea) acute Overactive bladder acute Prediabetes acute Screening for colon cancer n oneactive Establishing care with new doctor, encounter for noneactive Screening for breast cancer noneactive GERD (gastroesophageal reflux disease) acute Screening for colon cancer n oneactive Family history of colon cancer noneactive Constipation noneactive Bipolar 1 disorder acute 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) acute JANE (obstructive sleep apnea) acute Bipolar 1 disorder acute Chronic central neuropathic pain acute Essential hypertension acute GERD (gastroesophageal reflux disease) acute Ischemic cerebrovascular accident (CVA) acute Mixed hyperlipidemia acute JANE (obstructive sleep apnea) acute Overactive bladder acute Prediabetes acute Family history of colon cancer noneactive [facility] Work Phone: Evaluation note* Diagnosis Onset Date Resolution Status Bipolar 1 disorder acute Chronic central neuropathic pain acute Essential hypertension acute GERD (gastroesophageal reflux disease) acute Ischemic cerebrovascular accident (CVA) acute Mixed hyperlipidemia acute JANE (obstructive sleep apnea) acute Overactive bladder acute Prediabetes acute Family history of colon cancer noneactive [facility] Work Phone: Evaluation note* Diagnosis Type 2 diabetes mellitus without complication, without long-term current use of insulin (HCC) [facility] Diagnosis Encounter for screening mammogram for breast cancer documented in this encounter [facility] note* Diagnosis Onset Date Resolution Status Bipolar 1 disorder acute Essential hypertension acute GERD (gastroesophageal reflux disease) acute Ischemic cerebrovascular accident (CVA) acute Mixed hyperlipidemia acute JANE (obstructive sleep apnea) acute Overactive bladder acute Prediabetes acute Family history of colon cancer noneactive Immunization due noneactive Urinary frequency noneactive Screening for breast cancer noneactive [facility] Work Phone: Evaluation note* Diagnosis Onset Date Resolution Status Bipolar 1 disorder acute Essential hypertension acute GERD (gastroesophageal reflux disease) acute Ischemic cerebrovascular accident (CVA) acute Mixed hyperlipidemia acute JANE (obstructive sleep apnea) acute Overactive bladder acute Prediabetes acute Family history of colon cancer noneactive Immunization due noneactive Urinary frequency noneactive Screening for breast cancer noneactive Family history of colon cancer in mother acute Screening for malignant neoplasm of colon acute [facility] Work Phone: Evaluation note* Diagnosis Onset Date Resolution Status Bipolar 1 disorder acute Essential hypertension acute GERD (gastroesophageal reflux disease) acute Ischemic cerebrovascular accident (CVA) acute Mixed hyperlipidemia acute JANE (obstructive sleep apnea) acute Overactive bladder acute Prediabetes acute Chronic hip pain noneactive [facility] Work Phone: Evaluation note* Diagnosis Acute pain of left shoulder [facility] Additional Instructions [facility] Work [facility]: Reason for referral (narrative)* Diagnostic Procedure Only (Routine) - Pending Review Specialty Diagnoses / Procedures Referred By Katya pang Referred To Contact BR IMAGING Diagnoses Encounter for screening mammogram for breast cancer Procedures ALBERTO SCREENING SCREENING MAMMOGRAPHY BI 2-VIEW BREAST INC CAD Eulalio Sykes MD [address] [place] [address] [facility] [address] [place] [address] Referral ID Status Reason Start Date Expiration Date Visits Requested Visits Authorized [id number] Pending Review Auto-Generat ed Referral 03/06/2023 04/04/2024 1 1 [facility] for referral (narrative)* Diagnostic Procedure Only (Routine) - Closed Specialty Diagnoses / Procedures Referred By Katya pang Referred To Contact XR IMAGING Diagnoses Acute pain of left shoulder Procedures XR SHOULDER GENERAL 3V OR MORE AP/TRUE AP/OTHER LEFT X-RAY SHOULDER COMPLET MIN 2 VIEWS Joleen Acevedo PA-C [address] [place] [address] [place] [id number] Referral ID Status Reason Start Date Expiration Date V isits Requested Visits Authorized [id number] Closed Auto-Generate d Referral 08/31/2021 09/30/2022 1 1 [facility] for visit Narrative* Outpatient Procedure (Routine) - Closed Specialty Diagnoses / Procedures Referred By Katya pang Referred To [facility] Diagnoses Cervical radiculopathy Spinal stenosis in cervical region Numbness and tingling in left hand Procedures EMG(NEURO/NI) NERVE CONDUCTION STUDIES 9-10 STUDIES Jonathan Mendoza PA-C [address] [place] [address] [facility] [address] [place] [address] Referral ID Status Reason Start Date Expiration Date V isits Requested Visits Authorized [id number] Closed Auto-Generate d Referral 12/20/2021 12/20/2022 1 1 [facility] for visit Narrative* Diagnostic Procedure Only (Routine) - Closed Specialty Diagnoses / Procedures Referred By Contac t Referred To Contact MR IMAGING Diagnoses Radiculopathy, cervical Procedures MRI CERVICAL SPINE WO IVCON MRI SPINAL CANAL CERVICAL W/O CONTRAST Eulalio Aguirre MD [address] [place] [address] Mr Imaging Referral ID Status Reason Start Date Expiration Date Visits Re quested Visits Authorized [id number] Closed 10/05/2021 11/04/2021 2 2 [facility] for visit Narrative* Diagnostic Procedure Only (Routine) - Closed Specialty Diagnoses / Procedures Referred By Katya t Referred To Contact XR IMAGING Diagnoses Acute pain of left shoulder Procedures XR SHOULDER GENERAL 3V OR MORE AP/TRUE AP/OTHER LEFT X-RAY SHOULDER COMPLET MIN 2 VIEWS Joleen Acevedo PA-C [address] [place] [address] Xr Imaging [facility] Referral ID Status Reason Start Date Expiration Date V isits Requested Visits Authorized [id number] Closed Auto-Generate d Referral 08/31/2021 09/30/2022 1 1 [facility] Summary Purpose Family History No Family History Records Found Relationship Condition Age at Onset Recorded Date/T bartolo Unknown Family History?Heart Disease Unknown September 06, 2015 11:10am Family History?Heart Disease Unknown September 06, 2015 11:10am Relationship Condition Age at Onset Recorded Date/T bartolo mother Malignant neoplasm of colon Unknown Coronary artery disease Unknown grandmother Diabetes mellitus Unknown grandfather Coronary artery disease Unknown father Coronary artery disease Unknown Hypertension Unknown Relationship Condition Age at Onset Recorded Date/T bartolo mother Malignant neoplasm of colon Unknown Coronary artery disease Unknown Angina at rest Unknown Malignant neoplasm of breast Unknown Malignant neoplasm of cervix Unknown Depression Unknown Hypertension Unknown grandmother Diabetes mellitus Unknown Arthritis Unknown Heart disease Unknown grandfather Coronary artery disease Unknown Hemorrhagic disorder Unknown father Coronary artery disease Unknown Advance Directives No Advanced Directives Records FoundDocuments on File Type Date Recorded 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 Advance Directive(s) 11/28/2021 6:34 AM Advance Directive(s) 06/22/2019 1:00 PM Advance Directive(s) 03/26/2018 7:51 AM Advance Directive(s) 07/03/2017 6:36 AM Advance Directive(s) 06/26/2017 9:10 AM Documents on File Type Date Recorded 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 Advance Directive(s) 12/22/2021 4:50 PM Advance Directive(s) 11/28/2021 6:34 AM Advance Directive(s) 06/22/2019 1:00 PM Advance Directive(s) 03/26/2018 7:51 AM Advance Directive(s) 07/03/2017 6:36 AM Advance Directive(s) 06/26/2017 9:10 AM Documents on File Type Date Recorded 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 Advance Directive(s) 01/04/2022 9:31 AM Advance Directive(s) 12/22/2021 4:50 PM Advance Directive(s) 11/28/2021 6:34 AM Advance Directive(s) 06/22/2019 1:00 PM Advance Directive(s) 03/26/2018 7:51 AM Advance Directive(s) 07/03/2017 6:36 AM Advance Directive(s) 06/26/2017 9:10 AM Documents on File Type Date Recorded 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 Advance Directive(s) 01/04/2022 9:31 AM Advance Directive(s) 12/22/2021 4:50 PM Advance Directive(s) 11/28/2021 6:34 AM Advance Directive(s) 06/22/2019 1:00 PM Advance Directive(s) 03/26/2018 7:51 AM Advance Directive(s) 07/03/2017 6:36 AM Advance Directive(s) 06/26/2017 9:10 AM Advance Directive Response Recorded Date/ Time Advance Directives No August 1:58am Living Will No March 29, 2022 9:01am Power of Water Resources Program Director No March 29 9:01am Documents on File Type Date Recorded 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 Advance Directive(s) 03/30/2022 3:23 PM Advance Directive(s) 01/04/2022 9:31 AM Advance Directive(s) 12/22/2021 4:50 PM Advance Directive(s) 11/28/2021 6:34 AM Advance Directive(s) 06/22/2019 1:00 PM Advance Directive(s) 03/26/2018 7:51 AM Advance Directive(s) 07/03/2017 6:36 AM Advance Directive(s) 06/26/2017 9:10 AM Advance Directive Response Recorded Date/ Time Advance Directives No August 1:58am Living Will No April 04, 2022 4:04pm Power of Water Resources Program Director No April 04 4:04pm Advance Directive Response Recorded Date/ Time Advance Directives No August 12:58am Living Will No April 04, 2022 3:04pm Power of Water Resources Program Director No April 04 3:04pm Advance Directive Response Recorded Date/ Time Advance Directives No August 1:58am Living Will No October 01 12:53pm Power of Water Resources Program Director No October 01, 2022 12:53pm Advance Directive Response Recorded Date/ Time Advance Directives No August 12:58am Living Will No October 01 11:53am Power of Water Resources Program Director No October 01, 2022 11:53am Reason for Referral Specialty Diagnoses / Procedures Referred By Katya pang Referred To Contact [facility] Diagnoses Cervical radiculopathy DDD (degenerative disc disease), cervical Spinal stenosis in cervical region Procedures [facility]/OUTPATIENT [facility] 60-74 MINUTES Eulalio Sykes MD [address] [place] [address] Referral ID Status Reason Start Date Expiration Date Visits Requested Visits Authorized [id number] Pending Review PCP Requested Referral 03/28/2022 03/28/2023 1 1 Specialty Diagnoses / Procedures Referred By Katya pang Referred To Contact Urology Diagnoses Urge incontinence Procedures CONSULT TO UROLOGY OFFICE/OUTPATIENT [facility] 60-74 MINUTES Eulalio Sykes MD [address] [place] [address] Referral ID Status Reason Start Date Expiration Date Visits Requested Visits Authorized [id number] Pending Review PCP Requested Referral 03/28/2022 03/28/2023 1 1 Specialty Diagnoses / Procedures Referred By Katya pang Referred To Contact [facility] Diagnoses Screening breast examination Procedures ALBERTO SCREENING SCREENING MAMMOGRAPHY BI 2-VIEW BREAST INC CAD MonetEulalio mckeon MD [address] [place] [address] [facility] [address] [place] [address] Referral ID Status Reason Start Date Expiration Date Visits Requested Visits Authorized [id number] Authorized Auto-Generat ed Referral 03/28/2022 04/27/2023 1 1 Chief Complaint and Reason for Visit Chief Complaint numbness and tinglin g Chief Complaint numbness and tinglin g STROKE STROKE STROKE STROKE STROKE STROKE STROKE STROKE STROKE Reason for Visit Abnormal transaminas es Cerebrovascular disease 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 CARE, PT NEEDS NPP STROKE. 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) Dysphagia Facial droop due to acute cerebrovascular accident (CVA) GERD (gastroesophageal reflux disease) Ischemic cerebrovascular accident (CVA) JANE (obstructive sleep apnea) Overactive bladder Physical debility Prediabetes Right hemiparesis JANE (obstructive sleep apnea) Bipolar 1 disorder Chronic central neuropathic pain Essential hypertension Ischemic cerebrovascular accident (CVA) Mixed hyperlipidemia JANE (obstructive sleep apnea) Overactive bladder Prediabetes Screening for colon cancer Establishing care with new doctor, encounter for Screening for breast cancer GERD (gastroesophageal reflux disease) Screening for colon cancer Family history of colon cancer Constipation Chief Complaint numbness and tinglin g STROKE STROKE STROKE STROKE STROKE STROKE STROKE STROKE STROKE STROKE 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 CARE, PT NEEDS NPP STROKE. 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) Dysphagia Facial droop due to acute cerebrovascular accident (CVA) GERD (gastroesophageal reflux disease) Ischemic cerebrovascular accident (CVA) JANE (obstructive sleep apnea) Overactive bladder Physical debility Prediabetes Right hemiparesis JANE (obstructive sleep apnea) Bipolar 1 disorder Chronic central neuropathic pain Essential hypertension Ischemic cerebrovascular accident (CVA) Mixed hyperlipidemia JANE (obstructive sleep apnea) Overactive bladder Prediabetes Screening for colon cancer Establishing care with new doctor, encounter for Screening for breast cancer GERD (gastroesophageal reflux disease) Screening for colon cancer Family history of colon cancer Constipation Chief Complaint numbness and tinglin g STROKE STROKE STROKE STROKE STROKE STROKE STROKE STROKE STROKE STROKE 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 CARE, PT NEEDS NPP STROKE. 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) Dysphagia Facial droop due to acute cerebrovascular accident (CVA) GERD (gastroesophageal reflux disease) Ischemic cerebrovascular accident (CVA) JANE (obstructive sleep apnea) Overactive bladder Physical debility Prediabetes Right hemiparesis JANE (obstructive sleep apnea) Bipolar 1 disorder Chronic central neuropathic pain Essential hypertension Ischemic cerebrovascular accident (CVA) Mixed hyperlipidemia JANE (obstructive sleep apnea) Overactive bladder Prediabetes Screening for colon cancer Establishing care with new doctor, encounter for Screening for breast cancer GERD (gastroesophageal reflux disease) Screening for colon cancer Family history of colon cancer Constipation Chief Complaint STROKE STROKE STROKE STROKE STROKE STROKE STROKE STROKE 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 CARE, PT NEEDS NPP STROKE. 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) Dysphagia Facial droop due to acute cerebrovascular accident (CVA) GERD (gastroesophageal reflux disease) Ischemic cerebrovascular accident (CVA) JANE (obstructive sleep apnea) Overactive bladder Physical debility Prediabetes Right hemiparesis JANE (obstructive sleep apnea) Bipolar 1 disorder Chronic central neuropathic pain Essential hypertension Ischemic cerebrovascular accident (CVA) Mixed hyperlipidemia JANE (obstructive sleep apnea) Overactive bladder Prediabetes Screening for colon cancer Establishing care with new doctor, encounter for Screening for breast cancer GERD (gastroesophageal reflux disease) Screening for colon cancer Family history of colon cancer Constipation Bipolar 1 disorder 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 CARE, PT NE EDS NPP STROKE. 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) JANE (obstructive sleep apnea) Bipolar 1 disorder Chronic central neuropathic pain Essential hypertension GERD (gastroesophageal reflux disease) Ischemic cerebrovascular accident (CVA) Mixed hyperlipidemia JANE (obstructive sleep apnea) Overactive bladder Prediabetes Family history of colon cancer Chief Complaint JANE 2 M FU AXONICS STAGE 1 Reason for Visit Bipolar 1 disorder Chronic central neuropathic pain Essential hypertension GERD (gastroesophageal reflux disease) Ischemic cerebrovascular accident (CVA) Mixed hyperlipidemia JANE (obstructive sleep apnea) Overactive bladder Prediabetes Family history of colon cancer Chief Complaint med refills CVA/RX HERE Reason for Visit Bipolar 1 disorder Essential hypertension GERD (gastroesophageal reflux disease) Ischemic cerebrovascular accident (CVA) Mixed hyperlipidemia JANE (obstructive sleep apnea) Overactive bladder Prediabetes Family history of colon cancer Immunization due Urinary frequency Screening for breast cancer Chief Complaint med refills PAIN AFTER EATING/COLONOSCOPY CVA/RX HERE Reason for Visit Bipolar 1 disorder Essential hypertension GERD (gastroesophageal reflux disease) Ischemic cerebrovascular accident (CVA) Mixed hyperlipidemia JANE (obstructive sleep apnea) Overactive bladder Prediabetes Family history of colon cancer Immunization due Urinary frequency Screening for breast cancer Family history of colon cancer in mother Screening for malignant neoplasm of colon Chief Complaint CVA/RX HERE MED FOLLOW UP Reason for Visit Bipolar 1 disorder Essential hypertension GERD (gastroesophageal reflux disease) Ischemic cerebrovascular accident (CVA) Mixed hyperlipidemia JANE (obstructive sleep apnea) Overactive bladder Prediabetes Chronic hip pain Health Concerns Infection Onset Date Last Indicated Resolved Time COVID-19 Rule-Out 03/30/2022 03/30/2022 03/30/2022 4:31 PM EDT Additional Source Comments INFORMATION SOURCE (unrecogn ized section and content) DATE CREATED AUTHOR 03/28/2018 [facility] DATE CREATED AUTHOR AUTHOR'S ORGANIZ ATION 04/03/2018 [facility] DATE CREATED AUTHOR AUTHOR'S ORGANIZ ATION 04/28/2021 [facility] DATE CREATED AUTHOR AUTHOR'S ORGANIZ ATION 05/01/2022 [facility] DATE CREATED AUTHOR AUTHOR'S ORGANIZ ATION 03/11/2023 [facility] DATE CREATED AUTHOR AUTHOR'S ORGANIZ ATION 03/01/2025 [facility] Source Comments (unrecognize d section and content) In the event this informatio n is protected by the Federal Confidentiality of Alcohol and Drug Abuse Patient Records regulations: The Federal rules restrict any use of the information to criminally investigate or prosecute any alcohol or drug abuse patient.[facility] the event this information is protected by the Federal Confidentiality of Alcohol and Drug Abuse Patient Records regulations: The Federal rules restrict any use of the information to criminally investigate or prosecute any alcohol or drug abuse patient.[facility] the event this information is protected by the Federal Confidentiality of Alcohol and Drug Abuse Patient Records regulations: The Federal rules restrict any use of the information to criminally investigate or prosecute any alcohol or drug abuse patient.[facility] the event this information is protected by the Federal Confidentiality of Alcohol and Drug Abuse Patient Records regulations: The Federal rules restrict any use of the information to criminally investigate or prosecute any alcohol or drug abuse patient.[facility] HospitalIn the event this information is protected by the Federal Confidentiality of Alcohol and Drug Abuse Patient Records regulations: The Federal rules restrict any use of the information to criminally investigate or prosecute any alcohol or drug abuse patient.[facility] HospitalIn the event this information is protected by the Federal Confidentiality of Alcohol and Drug Abuse Patient Records regulations: The Federal rules restrict any use of the information to criminally investigate or prosecute any alcohol or drug abuse patient.[facility] HospitalIn the event this information is protected by the Federal Confidentiality of Alcohol and Drug Abuse Patient Records regulations: The Federal rules restrict any use of the information to criminally investigate or prosecute any alcohol or drug abuse patient.[facility] HospitalIn the event this information is protected by the Federal Confidentiality of Alcohol and Drug Abuse Patient Records regulations: The Federal rules restrict any use of the information to criminally investigate or prosecute any alcohol or drug abuse patient.[facility] HospitalIn the event this information is protected by the Federal Confidentiality of Alcohol and Drug Abuse Patient Records regulations: The Federal rules restrict any use of the information to criminally investigate or prosecute any alcohol or drug abuse patient.[facility] HospitalIn the event this information is protected by the Federal Confidentiality of Alcohol and Drug Abuse Patient Records regulations: The Federal rules restrict any use of the information to criminally investigate or prosecute any alcohol or drug abuse patient.[facility] HospitalIn the event this information is protected by the Federal Confidentiality of Alcohol and Drug Abuse Patient Records regulations: The Federal rules restrict any use of the information to criminally investigate or prosecute any alcohol or drug abuse patient.[facility] HospitalIn the event this information is protected by the Federal Confidentiality of Alcohol and Drug Abuse Patient Records regulations: The Federal rules restrict any use of the information to criminally investigate or prosecute any alcohol or drug abuse patient.[facility] HospitalIn the event this information is protected by the Federal Confidentiality of Alcohol and Drug Abuse Patient Records regulations: The Federal rules restrict any use of the information to criminally investigate or prosecute any alcohol or drug abuse patient.[facility] HospitalIn the event this information is protected by the Federal Confidentiality of Alcohol and Drug Abuse Patient Records regulations: The Federal rules restrict any use of the information to criminally investigate or prosecute any alcohol or drug abuse patient.[facility] HospitalIn the event this information is protected by the Federal Confidentiality of Alcohol and Drug Abuse Patient Records regulations: The Federal rules restrict any use of the information to criminally investigate or prosecute any alcohol or drug abuse patient.[facility] HospitalIn the event this information is protected by the Federal Confidentiality of Alcohol and Drug Abuse Patient Records regulations: The Federal rules restrict any use of the information to criminally investigate or prosecute any alcohol or drug abuse patient.[facility] HospitalIn the event this information is protected by the Federal Confidentiality of Alcohol and Drug Abuse Patient Records regulations: The Federal rules restrict any use of the information to criminally investigate or prosecute any alcohol or drug abuse patient.[facility] HospitalIn the event this information is protected by the Federal Confidentiality of Alcohol and Drug Abuse Patient Records regulations: The Federal rules restrict any use of the information to criminally investigate or prosecute any alcohol or drug abuse patient.[facility] HospitalIn the event this information is protected by the Federal Confidentiality of Alcohol and Drug Abuse Patient Records regulations: The Federal rules restrict any use of the information to criminally investigate or prosecute any alcohol or drug abuse patient.[facility] HospitalIn the event this information is protected by the Federal Confidentiality of Alcohol and Drug Abuse Patient Records regulations: The Federal rules restrict any use of the information to criminally investigate or prosecute any alcohol or drug abuse patient.[facility] HospitalIn the event this information is protected by the Federal Confidentiality of Alcohol and Drug Abuse Patient Records regulations: The Federal rules restrict any use of the information to criminally investigate or prosecute any alcohol or drug abuse patient.[facility] HospitalIn the event this information is protected by the Federal Confidentiality of Alcohol and Drug Abuse Patient Records regulations: The Federal rules restrict any use of the information to criminally investigate or prosecute any alcohol or drug abuse patient.[facility] HospitalIn the event this information is protected by the Federal Confidentiality of Alcohol and Drug Abuse Patient Records regulations: The Federal rules restrict any use of the information to criminally investigate or prosecute any alcohol or drug abuse patient.[facility] HospitalIn the event this information is protected by the Federal Confidentiality of Alcohol and Drug Abuse Patient Records regulations: The Federal rules restrict any use of the information to criminally investigate or prosecute any alcohol or drug abuse patient.[facility] Reason for Visit (unrecogniz ed section and content) Reason Comments Blood Pressure Check Reason Comments Patient Update Pain Reason Onset Date Comments Refill Request 01/18/2022 Reason Comments Follow Up Reason Comments F/U 6 Month Reason Comments Patient Question Patient Update Reason Comments Numbness right sided Limb Weakness right sided Reason Comments Release Of Medical Records Reason Comments Hospital F/U Reason Comments New Patient Evaluation Stroke. Reason Onset Date Comments Population Health Navigation Outreach 11/08/2022 HCC Reason Onset Date Comments Population Health Navigation Outreach 01/30/2023 hcc Reason Onset Date Comments Population Health Navigation Outreach 03/06/2023 [employer] Care Gaps Care Teams (unrecognized sec tion and content) Senior Planning Manager Relationship Specialty Start Date End Date Eulalio Sykes MD [address] [facility] [place], [place] [id number] PCP - General Family Practice 12/24/14 Jonathan Barrera [address] [facility] [place], [place] [address] Physician Rheumatology 04/18/17 Eulalio Sykes MD [address] [place] [address] NI Referring Team Family Practice 08/05/20 Senior Planning Manager Relationship Specialty Start Date End Date Eulalio Sykes MD [address] [place] [address] PCP - General Family Practice 12/24/14 Jonathan Barrera[address] [facility] [place] [address] Physician Rheumatology 04/18/17 Eulalio Sykes MD [address] [place] [address] NI Referring Team Family Practice 08/05/20 Senior Planning Manager Relationship Specialty Start Date End Date Eulalio Sykes MD [address] [place] [address] PCP - General Family Practice 12/24/14 Jonathan Barrera [address] [place] [facility] [place] [address] Physician Rheumatology 04/18/17 Eulalio Sykes MD [address] [place] [address] NI Referring Team Family Practice 08/05/20 Senior Planning Manager Relationship Specialty Start Date End Date Eulalio Sykes MD [address] [place] [address] PCP - General Family Practice 12/24/14 Jonathan Barrera [address] [facility] [place] [address] Physician Rheumatology 04/18/17 Eulalio Sykes MD [address] [place] [address] NI Referring Team Family Practice 08/05/20 Senior Planning Manager Relationship Specialty Start Date End Date Eulalio Sykes MD [address] [place] [address] PCP - General Family Practice 12/24/14 Jonathan Barrera [address] [place] [facility] [place] [address] Physician Rheumatology 04/18/17 Eulalio Sykes MD [address] [place] [address] NI Referring Team Family Practice 08/05/20 Senior Planning Manager Relationship Specialty Start Date End Date Eulalio Sykes MD [address] [place] [address] PCP - General Family Practice 12/24/14 Jonathan Barrera [address] [place] [facility] [place] [address] Physician Rheumatology 04/18/17 Eulalio Sykes MD [address] [place] [address] NI Referring Team Family Practice 08/05/20 Senior Planning Manager Relationship Specialty Start Date End Date Eulalio Sykes MD [address] [place] [address] PCP - General Family Practice 12/24/14 Jonathan Barrera [address] [place] [place] [address] Physician Rheumatology 04/18/17 Eulalio Sykes MD [address] [place] [address] NI Referring Team Family Practice 08/05/20 Senior Planning Manager Relationship Specialty Start Date End Date Eulalio Sykes MD [address] [place] [address] PCP - General Family Practice 12/24/14 [address] [facility] [place] [address] Physician Rheumatology 04/18/17 Eulalio Sykes MD [address] [place] [address] NI Referring Team Family Practice 08/05/20 Senior Planning Manager Relationship Specialty Start Date End Date Eulalio Sykes MD [address] [place] [address] PCP - General Family Practice 12/24/14 Jonathan [address] [place] [address] Physician Rheumatology 04/18/17 Eulalio Sykes MD [address] [place] [address] NI Referring Team Family Practice 08/05/20 Senior Planning Manager Relationship Specialty Start Date End Date Eulalio Sykes MD [address] [place] [address] PCP - General Family Practice 12/24/14 [place] [place] [address] Physician Rheumatology 04/18/17 Eulalio Sykes MD [address] [place] [address] NI Referring Team Family Practice 08/05/20 Senior Planning Manager Relationship Specialty Start Date End Date Eulalio Sykes MD [address] [place] [address] PCP - General Family Practice 12/24/14 Jonathan Barrera [address] [facility] [place] [address] Physician Rheumatology 04/18/17 Eulalio Sykes MD [address] [place] [address] NI Referring Team Family Practice 08/05/20 Senior Planning Manager Relationship Specialty Start Date End Date Eulalio Sykes MD [address] [place] [address] PCP - General Family Practice 12/24/14 Jonathan [address] [place] [address] Physician Rheumatology 04/18/17 Eulalio Sykes MD [address] [place] [address] NI Referring Team Family Practice 08/05/20 Senior Planning Manager Relationship Specialty Start Date End Date Eulalio Sykes MD [address] [place] [address] PCP - General Family Practice 12/24/14 Jonathan Barrera [address] [place] [facility] [place] [address] Physician Rheumatology 04/18/17 Eulalio Sykes MD [address] [place] [address] NI Referring Team Family Practice 08/05/20 Senior Planning Manager Relationship Specialty Start Date End Date Eulalio Sykes MD [address] [place] [address] PCP - General Family Medicine 12/24/14 Jonathan Barrera [address] [facility] [place] [address] Physician Rheumatology 04/18/17 Eulalio Sykes MD [address] [place] [address] NI Referring Team Family Medicine 08/05/20 Team Status: Active Member Role Status Dates Dr. Eulalio Sykes MD Family Provider Active Dr. Nimisha Olvera MD Primary Care Provider Active Team Status: Inactive Member Role Status Dates Dr. Eulalio Sykes MD Referring Provider Active Dr. Nimisha Olvera MD Primary Care Provider, Attendi ng Provider Active Team Status: Inactive Member Role Status Dates Dr. Nimisha Olvera MD Primary Care Provider Active Xin Holley SUPERVISOR REWORK, SUPERVISOR REWORK-C Attending Provider Active Team Status: Inactive Member Role Status Dates Dr. Nimisha Olvera MD Primary Care Pro vider, Attending Provider, Referring Provider Active Team Status: Inactive Member Role Status Dates Dr. Nimisha Olvera MD Primary Care Provider Active Dr. Monse Pro MD Attending Provider, Referring P nic Active Senior Planning Manager Relationship Specialty Start Date End Date Eulalio Sykes MD [address] [place] [address] PCP - General Family Medicine 12/24/14 Jonathan Barrera [address] [place] [facility] [address] Physician Rheumatology 04/18/17 Eulalio Sykes MD [address] [place] [address] NI Referring Team Family Medicine 08/05/20 Senior Planning Manager Relationship Specialty Start Date End Date Eulalio Sykes MD [address] [place] [address] PCP - General Family Medicine 12/24/14 Jonathan Barrera [address] [place] [facility] [place] [address] Physician Rheumatology 04/18/17 Eulalio Sykes MD [address] [place] [address] NI Referring Team Family Medicine 08/05/20 Senior Planning Manager Relationship Specialty Start Date End Date Jonathan Barrera [address] [facility] [address] Physician Rheumatology 04/18/17 Eulalio Sykes MD [address] [place], [place] [address] NI Referring Team Family Medicine 08/05/20 Senior Planning Manager Relationship Specialty Start Date End Date Jonathan Barrera [address] [facility] [place], [place] [address] Physician Rheumatology 04/18/17 Eulalio Sykes MD [address] [place], [place] [address] NI Referring Team Family Medicine 08/05/20 Team Status: Inactive Member Role Status Dates Dr. Nimisha Olvera MD Primary Care Provider, Attendi ng Provider Active Team Status: Active Member Role Status Dates Dr. Nimisha Olvera MD Primary Care Pro vider, Attending Provider, Referring Provider Active Team Status: Inactive Member Role Status Dates Dr. Nimisha Olvera MD Primary Care Provider, Referri ng Provider Active Dr. Lisa Sow MD Attending Provider Active Senior Planning Manager Relationship Specialty Start Date End Date Eulalio Sykes MD [address] [facility] [place] [place] [address] PCP - General Family Medicine 12/24/14 03/05/23 Jonathan Barrera [address] [facility] [place] [address] Physician Rheumatology 04/18/17 Eulalio Sykes MD [address] [place] [address] NI Referring Team Family Medicine 08/05/20 Goals (unrecognized section and content) Goals may be documented in a n alternate sectionGoals may be documented in an alternate sectionGoals may be documented in an alternate sectionGoals may be documented in an alternate sectionGoals may be documented in an alternate sectionGoals may be documented in an alternate sectionGoals may be documented in an alternate sectionGoals may be documented in an alternate sectionGoals may be documented in an alternate sectionGoals may be documented in an alternate sectionGoals may be documented in an alternate section FOR RECORDS PERTAINING TO PATIENTS WHO ARE OR HAVE BEEN ENROLLED IN A CHEMICAL DEPENDENCY/SUBSTANCEABUSE PROGRAM, SOME INFORMATION MAY BE OMITTED. This clinical summary was aggregated from multiple sources. Caution should be exercised in using it in the provision of clinical care. This summary normalizes information from multiple sources, and as a consequence, information in this document may materially change the coding, format and clinical context of patient data. In addition, data may be omitted in some cases. CLINICAL DECISIONS SHOULD BE BASED ON THE PRIMARY CLINICAL RECORDS. [facility]. provides no warranty or guarantee of the accuracy or completeness of information in this document.
[2025-03-02] MEDS: LR 1,000 ML - BOLUS PREOP 999 ML IV (06:06)
[2025-03-02] MEDS: Magnesium 1 GM over 15 mins IV (06:07)
[2025-03-02] MEDS: Gabapentin 600 MG Tablet PO (06:10)
[2025-03-02] MEDS: Celecoxib 200 MG Capsule 400 MG PO (06:10)
[2025-03-02] MEDS: Acetaminophen 500 MG Tablet 1000 MG PO (06:10)
[2025-03-02] MEDS: Scopolamine 1mg/72hr Patch 1 PATCH TD (06:12)
[2025-03-02 06:26] VITALS: BP 133/80; PULSE 70; RESP 18; TEMP 36.1; O2SAT 98; BMI 32.9
[2025-03-02 10:24] LABS: Bedside Glucose 160 mg/dL (74-106)
== END 2025-02-11 19:00 | disposition home or self-care (01) ==
LOC: ACINP 03-02 05:43 → SDC 07-01 08:05
PROVIDERS: Anesthesiology; PCP Internal Medicine; Referring Provider Orthopaedic Surgery; Visit Provider Orthopaedic Surgery
DX: Z01.818 Encounter for other preprocedural examination (principal)
CPT/HCPCS: 36415; 80048; 82962; 82985; 83036; 83735; 85025; 85610; 85730; 86850; 86900; 86901; 87081; 93005; J3475

== ENCOUNTER → 2025-02-23 | Outpatient (CLI) | payer MEDICARE, MEDICAID, SELFPAY ==
--- NOTE | 2025-02-23 16:07 | CT_ITS ---
PROCEDURE: EXTREMITY LOWER WITHOUT CONTRA 02/23/2025 REASON FOR EXAM: TEMPLATING FOR RIGHT FRANCI TECHNIQUE: EXTREMITY LOWER WITHOUT CONTRA Coronal and Sagittal reconstruction series were provided. CONTRAST: None One or more dose reduction techniques were used (e.g., Automated exposure control, adjustment of the mA and/or kV according to patient size, use of iterative reconstruction technique). RADIATION DOSE SUMMARY: DLP: 803.21 mGycm COMPARISON: None FINDINGS: Bones: There is no fracture or dislocation. Joints: There is severe osteoarthritis of the right hip with joint space narrowing, subcortical cyst formation, and marginal osteophytes. There is no visible effusion. Mineralization is normal. Degenerative disc disease is visible at L4-5. The SI joints are aligned. The sacral foramina appear intact. The pelvic bones appear intact. Soft Tissues: There is a stimulator in the right posterior soft tissues of the wire extending to the anterior soft tissues at the left aspect of the sacrum. There is visible atherosclerosis. There is no adenopathy or soft tissue mass. CT/Extremity Lower without Contra IMPRESSION: There is severe osteoarthritis of the right hip with joint space narrowing, sub cortical cyst formation, and marginal osteophytes. Reading Location: [facility]
== END | disposition home or self-care (01) ==
LOC: CT 16:05
PROVIDERS: PCP Internal Medicine; Referring Provider Orthopaedic Surgery; Visit Provider Orthopaedic Surgery
DX: M16.11 Unilateral primary osteoarthritis, right hip (principal)
CPT/HCPCS: 73700

== ENCOUNTER 2025-06-22 14:00 | Inpatient (IN) | payer MEDICARE, MEDICAID, SELFPAY ==
--- NOTE | 2025-06-17 07:47 | EKG12_ITS ---
Test Reason : PREOP Blood Pressure : */* mmHG Vent. Rate : 72 BPM Atrial Rate : 72 BPM P-R Int : 160 ms QRS Dur : 128 ms QT Int : 432 ms P-R-T Axes : 44 -32 15 degrees QTcB Int : 473 ms Normal sinus rhythm Left axis deviation Right bundle branch block Left ventricular hypertrophy with QRS widening Abnormal ECG When compared with ECG of 16-Feb-2025 08:40, No significant change was found Confirmed by VALERIE CARRANZA, MALCOLM ([id number]), clinical editor AYSHA FALK ([id number]) on 06/17/2025 10:10:11 AM Referred By: Dain lBanchard Confirmed By: MALCOLM PADILLA MD
[2025-06-17 09:10] LABS: Hematocrit 37.5 % (37-47); Hemoglobin 11.8 g/dL (12.0-15.0); Immature Granulocytes Count 0.010 X10^3/uL (0.0-0.0); Mean Corp Hgb Conc 31.5 g/dL (32-36); Mean Corpuscular Volume 87.0 fL (81-99); Mean Platelet Vol. 11.3 fl (6.2-12.0); NRBC Flagged by Analyzer 0 % (0-5); Platelet Count 242 K/mm3 (150-450); RBC Distribution Width CV 13.6 % (11.6-14.6); RBC Distribution Width SD 43.7 fl (35.1-43.9); Red Blood Count 4.31 M/mm3 (4.2-5.4); White Blood Count 6.3 K/mm3 (4.4-11.0)
[2025-06-17 09:20] LABS: Partial Thromboplast Time 30.9 Seconds (24.1-36.2); Prothrombin Time (Protime)PT. 13.8 SECONDS (11.7-14.9)
[2025-06-17 10:13] LABS: Anion Gap 11 (5-15); BUN 17 mg/dL (4-19); BUN/Creat Ratio 22.2 RATIO (10-20); Calcium,Total 10.4 mg/dL (7.6-11.0); Carbon Dioxide 27.1 mmol/L (21.0-32.0); Chloride 102 mmol/L (98-108); Glucose 131 mg/dL (70-99); Magnesium 2.2 mg/dL (1.5-2.2); Potassium 4.6 mmol/L (3.3-5.1)
--- NOTE | 2025-06-17 12:27 | PAT.ANE_ITS ---
Pre-Assessment Diagnosis/Proposed Procedure Planned Operative Procedure(s): (R) ERAS, Right Total Hip Replacement Robotic Arm Assisted Anesthesia History Anesthesia History - care transition manager: Anesthesia History - care transition manager Hx Hospitalization No 06/16/25 11:23 Any Problems With Anesthesia No 06/16/25 11:23 Cholinesterase deficiency No 06/16/25 11:23 You/Your Family Experience No 06/16/25 11:23 fever (hyperthermia) with Relationship Recent Exposure to Contagious No 03/22/25 10:44 Disease Does patient have nerve No 06/16/25 11:23 stimulator Patient instructed to have device shut off --Does patient have Pacemaker or ICD? When Was Last Pacemaker Check QUESTION #4 FULL TEXT: You/Your Family Experience fever (hyperthermia) with Anesthesia Last Oral Intake Last Oral intake: Last Oral Intake NPO since Meds taken in AM with sips of water? Meds patient instructed to take am of surgery PONV PONV - care transition manager: PONV - care transition manager Female Yes 06/16/25 11:23 HX of Motion Sickness No 06/16/25 11:23 HX of N/V After Surgery No 06/16/25 11:23 Non-Smoker Yes 06/16/25 11:23 Duration of Surgery greater Yes 06/16/25 11:23 than 60 minutes Number of Risk Factors 3 06/16/25 11:23 PONV Score Moderate Risk 06/16/25 11:23 Height & Weight Height & Weight: Anesthesia: Height & Weight Height 5 ft 4 in 06/14/25 11:03 Respiratory Assessment Respiratory Assessment - care transition manager: Respiratory Tract Infection Hx - care transition manager Hx Respiratory Tract Infection No 06/16/25 11:23 STOP Sleep Apnea STOP Sleep Apnea - care transition manager: STOP Sleep Apnea - care transition manager Hx Hypertension Yes: CONTROLLED WITH MEDS 06/16/25 11:23 Hx Sleep Apnea Yes 06/16/25 11:23 CPAP Yes: NONCOMPLIANT 06/16/25 11:23 BIPAP No 06/16/25 11:23 Do you snore loudly (louder than talking or can be heard Do you often feel tired/ fatigued/ sleepy during daytime? Has anyone observed you stop breathing during sleep? STOP Results Positive 06/16/25 11:23 QUESTION #5 FULL TEXT : Do you snore loudly (louder than talking or can be heard through closed doors)? 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 Specify any problems Hx of Preganancy in last 3 N/A 06/16/25 11:23 Months Nurse Filling Out Transfusion [facility] 06/16/25 11:23 & Questions: Date: 06/16/25 06/16/25 11:23 Time: 11:28 06/16/25 11:23 Patient unable to answer at this time (ie. confused, unrespo /Reproduction History /Reproductive History - care transition manager: /Reproductive Hx- care transition manager Hx Now No 06/16/25 11:23 Gestational Age (in weeks): EDC: Hx Hx Para Hx Section SAB No 06/16/25 11:23 PFSH Medical History (Updated 06/16/25 @ 11:30 by Maile Biggs) Yeast infection Tinea corporis URI (upper respiratory infection) Post-menopausal Walker as ambulation aid Anemia Dietary restriction Constipation Asthma History of pain when walking History of edema Family history of colon cancer in mother Hx of bladder problems Wears glasses Bipolar disorder Arthritis Bladder disease High cholesterol Gastric reflux Non-smoker CPAP (continuous positive airway pressure) dependence History of echocardiogram History of stress test Stroke/cerebrovascular accident Hx of migraines Radicular pain in left arm Obesity (BMI 30.0-34.9) Depression Bipolar 1 disorder Hypertension Home Medications Medication Instructions Recorded Last Taken Type multivitamin (Daily Multiple 1 ea PO DAILY supplement 08/22/15 02/28/25 History tablet) handicap placard #1 ea 11/20/23 Unknown Rx Rollator walker with brakes #1 ea 05/19/24 Unknown Rx acetaminophen 650 mg 650 mg PO Q12H PRN pain 05/0303/01/25 History tablet,extended release (8 Hour Pain Reliever) blood pressure monitor (Blood #1 ea 05/19/24 Unknown R x Pressure Kit) sertraline 100 mg tablet 100 mg PO DAILY DEPRESSION # 90 tabs 02/10/25 03/01/25 Rx calcium carbonate (Calcium 500) 1,000 mg PO DAILY PRN dyspepsia 02/11/25 02/28/25 History pantoprazole 40 mg tablet,delayed 40 mg PO DAILY GERD 02/11/25 03/01/25 History release propranolol 120 mg capsule,24 120 mg PO DAILY BP #90 c aps 02/23/25 03/01/25 Rx hr,extended release omeprazole magnesium 20 mg 20 mg PO DAILY gerd 5 03/01/25 History tablet,delayed release (Prilosec OTC) nystatin 100,000 unit/gram topical 1 applic topical TI D ABD YEAST 04/19/25 Unknown Rx powder INFECTION #60 grams aspirin 81 mg chewable tablet 81 mg PO QDAY HEART HEAL TH 04/22/25 Unknown History cetirizine 10 mg capsule (Zyrtec) 10 mg PO QDAY PRN AL LERGIES 04/22/25 Unknown History atorvastatin 40 mg tablet 40 mg PO QHS HDL #90 tabs Unknown Rx amlodipine 5 mg tablet 10 mg (2 x 5 mg) PO DAILY BP 90 05/07/25 Unknown Rx days #180 tabs montelukast 10 mg tablet 10 mg PO QHS asthma #90 tabs 06/02/25 Unknown Rx (Singulair) ramipril 5 mg capsule 5 mg PO QDAY BP #90 caps 09/26 Unknown Rx Allergy/AdvReac Type Severity Reaction Status Date / Time codeine Allergy Other Verified 06/16/25 11:20 Penicillins Allergy Itching Verified 06/16/25 11:20 Knpwohb-AVX-AwT Reductase Allergy Unknown Verified 06/16/25 11:20 Inhibitor (Pixfyyp-Avh-Iof Reductase Inhibitor) Sulfa (Sulfonamide Allergy Itching Verified 06/16/25 11:20 Antibiotics) Family History Mother Colon cancer CAD (coronary artery disease) Angina at rest Breast cancer Cervical cancer Depression Hypertension Grandmother Diabetes Maternal grandmother CAD (coronary artery disease) Arthritis Heart disease Grandfather CAD (coronary artery disease) Bleeding disorder Father CAD (coronary artery disease) Hypertension Surgical History Hx of colonoscopy History of esophagogastroduodenoscopy (EGD) Hx of surgical procedure History of bladder suspension procedure H/O: hysterectomy Social History household members: none housing: house current occupational status: retired 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 Normal sinus rhythm. Left axis deviation. Right bundle branch block. Left ventricular hypertrophy with QRS widening. When compared with EKG of February 16, 2025 no significant change was found Stress test pertinent findings: Stress test 05/05/2024. Normal pharmacologic myocardial perfusion stress test. Preserved ejection fraction. EF 77% Recommendation Anesthesia Recommendation Anesthesia recommendation: OPTIMIZED for anesthesia
[2025-06-22] VITALS (18 sets, daily range): BP systolic 112–150; BP diastolic 58–82; PULSE 60–74; RESP 12–18; TEMP 36.1–36.7; O2SAT 94–100; BMI 32.9
[2025-06-22] MEDS: Scopolamine 1mg/72hr Patch 1 PATCH TD (09:35)
[2025-06-22] MEDS: LR 1,000 ML - BOLUS PREOP 999 ML IV (09:36)
[2025-06-22] MEDS: Magnesium 1 GM over 15 mins IV (09:37)
--- NOTE | 2025-06-22 10:49 | PRE.ANES_ITS ---
ASA Classification* ASA Classification ASA Classification: 3 Assessment & Plan Anesthesia* Anesthesia Assessment Anesthesia Assessment: Discussed sedation and/or anesthesia options, risks, benefits, and alternatives with patient/parents/legal guardian/POA. Questions invited. The patient/parents/legal guardian/POA seems to understand and agrees to proceed with anesthesia plan. Reviewed the physical assessment, medical history, allergy history and patient home medications list prior to surgery/procedure/anesthetic and documented any changes. Performed airway and anesthesia risk assessments. Anesthesia Type Anesthesia Type: Spinal History Source History Obtained from:: Patient and Chart Anesthesia Focused Assessment* Temperature: 97 F Pulse Rate: 71 Blood Pressure: 137/64 Respiratory Rate: 16 Pulse Ox: 98 Oxygen Delivery Method: Room Air Airway Assessment Mouth opens: >3 cm Mallampati Score: IV Teeth Condition: Chipped/Broken (Patient has couple chipped teeth.) and Missing (Patient has a new missing left lower molar.) Neck Range of motion (ROM): Limited ROM (Severe Restriction) Labs Anesthesia Preop lab: CBC WBC, (4.4-11.0) 6.3 K/mm3 06/17/25, 08:09 RBC, (4.2-5.4) 4.31 M/mm3 06/17/25, 08:09 Hgb, (12.0-15.0) 11.8 g/dL L 06/17/25, 08:09 Hct, (37-47) 37.5 % 06/17/25, 08:09 Plt Count, (150-450) 242 K/mm3 06/17/25, 08:09 CHEMISTRY Potassium, (3.3-5.1) 4.6 mmol/L 06/17/25, 08:09 Sodium, (133-145) 140 mmol/L 06/17/25, 08:09 Magnesium, (1.5-2.2) 2.2 mg/dL 06/17/25, 08:09 Phosphorus, (2.5-4.9) 3.7 mg/dL 04/04/22, 05:36 BUN, (4-19) 17 mg/dL 06/17/25, 08:09 Creatinine, (0.70-1.20) 0.78 mg/dL 06/17/25, 08:09 Glucose, (70-99) 131 mg/dL H 06/17/25, 08:09 POC Glucose, (74-106) 115 mg/dL H Today, 09:30 TSH, (0.358-3.74) 3.14 uIU/mL 04/17/22, 05:21 COAG PT, (11.7-14.9) 13.8 SECONDS 06/17/25, 08:09 Pre-Assessment Diagnosis/Proposed Procedure Planned Operative Procedure(s): (R) ERAS, Right Total Hip Replacement Robotic Arm Assisted Anesthesia History 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 When Was Last Pacemaker Check QUESTION #4 FULL TEXT: You/Your Family Experience fever (hyperthermia) with Anesthesia Last Oral Intake Last Oral intake: Last Oral Intake NPO since 05:00 06/22/25 09:43 Meds taken in AM with sips of No 06/22/25 09:43 water? Meds patient instructed to take am of surgery Any additional information?: Yes NPO since: 05:00 (Patient had a preop Ensure at 5 AM.) Meds taken in AM with sips of water?: No PONV PONV - supervisor elementary education: PONV - supervisor elementary education Female Yes 06/16/25 11:23 HX of Motion Sickness No 06/16/25 11:23 HX of N/V After Surgery No 06/16/25 11:23 Non-Smoker Yes 06/16/25 11:23 Duration of Surgery greater Yes 06/16/25 11:23 than 60 minutes Number of Risk Factors 3 06/16/25 11:23 PONV Score Moderate Risk 06/16/25 11:23 Height & Weight Height & Weight: Anesthesia: Height & Weight Height 5 ft 4 in 06/22/25 09:43 Weight: 87 kg 06/22/25 09:43 Body Mass Index (BMI) 32.9 06/22/25 09:43 Respiratory Assessment Respiratory Assessment - supervisor elementary education: Respiratory Tract Infection Hx - supervisor elementary education Hx Respiratory Tract Infection No 06/16/25 11:23 STOP Sleep Apnea STOP Sleep Apnea - supervisor elementary education: STOP Sleep Apnea - supervisor elementary education Hx Hypertension Yes: CONTROLLED WITH MEDS 06/16/25 11:23 Hx Sleep Apnea Yes 06/16/25 11:23 CPAP Yes: NONCOMPLIANT 06/16/25 11:23 BIPAP No 06/16/25 11:23 Do you snore loudly (louder than talking or can be heard Do you often feel tired/ fatigued/ sleepy during daytime? Has anyone observed you stop breathing during sleep? STOP Results Positive 06/16/25 11:23 QUESTION #5 FULL TEXT : Do you snore loudly (louder than talking or can be heard through closed doors)? 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 Specify any problems Hx of Preganancy in last 3 N/A 06/16/25 11:23 Months Nurse Filling Out Transfusion [facility] 06/16/25 11:23 & Questions: Date: 06/16/25 06/16/25 11:23 Time: 11:28 06/16/25 11:23 Patient unable to answer at this time (ie. confused, unrespo /Reproduction History /Reproductive History - supervisor elementary education: /Reproductive Hx- supervisor elementary education Hx Now No 06/16/25 11:23 Gestational Age (in weeks): EDC: Hx Hx Para Hx Section SAB No 06/16/25 11:23 Active Medications Active Medications: Current Medications Generic Name Dose Route Start Last Admin Trade Name [place] PRN Reason Stop Dose Admin Acetaminophen 1,000 mg 06/22/25 11:15 06/22/25 09:36 Acetaminophen 500 Mg Tablet PO 06/22/25 11:16 1,000 mg PREOP ONE Administration Celecoxib 400 mg 06/22/25 11:15 06/22/25 09:36 Celecoxib 200 Mg Capsule PO 06/22/25 11:16 400 mg PREOP ONE Administration Dexamethasone Sodium Phosphate 10 mg 06/22/25 11:15 Dexamethasone 10 Mg/Ml Vial IV 06/22/25 11:16 INTRAOP ONE Gabapentin 600 mg 06/22/25 11:15 06/22/25 09:35 Gabapentin 600 Mg Tablet PO 06/22/25 11:16 600 mg PREOP ONE Administration Lactated Ringer's 1,000 mls @ 999 mls/hr 06/22/25 11:15 06/22/25 09:36 IV 06/22/25 12:15 999 mls/hr .Q1H1M SAMIR Administration Tranexamic Acid 2,000 mg/ 120 mls @ 280 mls/hr 06/22/25 11:15 Sodium Chloride IV 06/22/25 11:40 INTRAOP ONE Lactated Ringer's 1,000 mls @ 125 mls/hr 06/22/25 11:15 IV 06/22/25 19:14 .Q8H SAMIR Magnesium Sulfate 1 gm/ 102 mls @ 408 mls/hr 06/22/25 11:15 06/22/25 09:52 Dextrose IV 06/22/25 11:29 Infused PREOP ONE Infusion Cefazolin Sodium 2 gm/ Sodium 110 mls @ 200 mls/hr 06/22/25 11:15 Chloride IV 06/22/25 11:47 INTRAOP ONE Insulin Human Lispro 1 - 6 unit 06/22/25 11:15 Insulin Lispro 100 Unit/Ml Insuln.Pen SC Q4H PRN PRN BG>/= 180, SEE PROTOCOL Protocol Scopolamine HBr 1 patch 06/22/25 11:15 06/22/25 09:35 Scopolamine 1mg/72hr Patch TD 06/22/25 11:16 1 mg PREOP ONE Administration PFSH Medical History Carpal tunnel syndrome of right wrist Yeast infection Tinea corporis URI (upper respiratory infection) Post-menopausal Walker as ambulation aid Anemia Dietary restriction Constipation Asthma History of pain when walking History of edema Family history of colon cancer in mother Hx of bladder problems Wears glasses Bipolar disorder Arthritis Bladder disease High cholesterol Gastric reflux Non-smoker CPAP (continuous positive airway pressure) dependence History of echocardiogram History of stress test Stroke/cerebrovascular accident Hx of migraines Radicular pain in left arm Obesity (BMI 30.0-34.9) Depression Bipolar 1 disorder Hypertension Home Medications Medication Instructions Recorded Last Taken Type multivitamin (Daily Multiple 1 ea PO DAILY supplement 08/22/15 06/20/25 History tablet) handicap placard #1 ea 11/20/23 Unknown Rx Rollator walker with brakes #1 ea 05/19/24 Unknown Rx acetaminophen 650 mg 650 mg PO Q12H PRN pain 05/0306/21/25 History tablet,extended release (8 Hour Pain Reliever) blood pressure monitor (Blood #1 ea 05/19/24 Unknown R x Pressure Kit) sertraline 100 mg tablet 100 mg PO DAILY DEPRESSION # 90 tabs 02/10/25 06/21/25 Rx calcium carbonate (Calcium 500) 1,000 mg PO DAILY PRN dyspepsia 02/11/25 02/28/25 History pantoprazole 40 mg tablet,delayed 40 mg PO DAILY GERD 02/11/25 06/21/25 History release propranolol 120 mg capsule,24 120 mg PO DAILY BP #90 c aps 02/23/25 06/21/25 Rx hr,extended release omeprazole magnesium 20 mg 20 mg PO DAILY gerd 5 06/21/25 History tablet,delayed release (Prilosec OTC) nystatin 100,000 unit/gram topical 1 applic topical TI D ABD YEAST 04/19/25 06/21/25 Rx powder INFECTION #60 grams aspirin 81 mg chewable tablet 81 mg PO QDAY HEART HEAL TH 04/22/25 06/15/25 History cetirizine 10 mg capsule (Zyrtec) 10 mg PO QDAY PRN AL LERGIES 04/22/25 Unknown History atorvastatin 40 mg tablet 40 mg PO QHS HDL #90 tabs 06/21/25 Rx amlodipine 5 mg tablet 10 mg (2 x 5 mg) PO DAILY BP 90 05/07/25 06/21/25 Rx days #180 tabs montelukast 10 mg tablet 10 mg PO QHS asthma #90 tabs 06/02/25 06/21/25 Rx (Singulair) ramipril 5 mg capsule 5 mg PO QDAY BP #90 caps 09/2606/21/25 Rx Allergy/AdvReac Type Severity Reaction Status Date / Time codeine Allergy Other Verified 06/22/25 09:59 Penicillins Allergy Itching Verified 06/22/25 09:59 Molvwbv-OND-EaG Reductase Allergy Unknown Verified 06/22/25 09:59 Inhibitor (Ohdgyps-Umg-Sou Reductase Inhibitor) Sulfa (Sulfonamide Allergy Itching Verified 06/22/25 09:59 Antibiotics) Family History Mother Colon cancer CAD (coronary artery disease) Angina at rest Breast cancer Cervical cancer Depression Hypertension Grandmother Diabetes Maternal grandmother CAD (coronary artery disease) Arthritis Heart disease Grandfather CAD (coronary artery disease) Bleeding disorder Father CAD (coronary artery disease) Hypertension Surgical History Hx of colonoscopy History of esophagogastroduodenoscopy (EGD) Hx of surgical procedure History of bladder suspension procedure H/O: hysterectomy Social History household members: none housing: house current occupational status: retired 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 Physical Exam Resp clear to auscultation bilaterally
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
--- NOTE | 2025-06-22 11:15 | FEM._PTH ---
PATIENT: FLOR MEDINA LOC: [facility] U#:[id number] AGE/SX: 75/F ROOM: OH319 RE06/22/[address]: Dr. Dain Blanchard DO : 1950 BED: 1 DIS: 06/24/2025 SPEC #: [id number] RECD: 06/22/25 14:17 STATUS: CESAR REKaran #: [id number] CHRISTIANO: 06/22/25 11:[address]: Dain Blanchard DEPT: SURGICAL PATHOLOGY RECD BY: Douglas Matthews ENTERED: 06/22/25 14:44 SP TYPE: FEM HEAD OTHR DR: MD Geovanny Maurer PA Tissues: A - Hip, NOS Procedures: Decalcification bone/plaque Surgery Specimen Level III HEADER OPERATION: ERAS, right total hip replacement robotic arm assisted PRE-OP DIAGNOSIS: Osteoarthritis of right hip TISSUE SUBMITTED: A- Right femoral head MICROSCOPIC DIAGNOSIS A. Right femoral head, right total hip arthroplasty: * Articular bone with osteoarthritic reactive and degenerative changes. * Trilineage hematopoiesis. MICROSCOPIC DESCRIPTION Slides are reviewed. GROSS DESCRIPTION A. Received in formalin labeled with the patient's name and date of . Designated as "right femoral head" is a 5.1 x 4.9 x 4.2 cm slightly irregular, ovoid femoral head with attached femoral neck, 1.7 cm in length by 2.9 cm in diameter. The articular cartilage is martin-red and granular with focal eburnation and marked peripheral osteophyte formation. Sectioning reveals martin-yellow to red, somewhat brittle, trabeculated medullary bone with a 0.9 x 0.5 cm apparent subchondral cyst, underlying a possible area of eburnation. Also received within the container is a 7.5 x 7.2 x 0.7 cm aggregate of bone fragments. Special Procedure Tech sections are submitted in 2 cassettes, following decalcification as follows: A1: Femoral head with subchondral cyst and overlying, possible eburnationA2: Femoral neck and osteophyte formation NH 06/22/2025 CPT:[id number]
[2025-06-22] MEDS: Midazolam 2 MG/2 ML Syringe IV (11:25)
[2025-06-22] MEDS: Lidocaine 1% (5 ml sdv) 5 ML Vial IV (11:37)
[2025-06-22] MEDS: Cefazolin 1 GM/5 ML Vial 2 GM IV (11:40)
[2025-06-22] MEDS: TRANEXAMIC ACID 1,000 MG/10 ML ML 2000 MG IV (11:54)
--- NOTE | 2025-06-22 13:55 | PCM.POST.ANE ---
Anesthesia: Postop Eval I Current Vital Signs Temperature: 97 F Pulse Rate: 74 Blood Pressure: 144/73 Respiratory Rate: 12 Pulse Ox: 100 Oxygen Delivery Method: Room Air Assessment Airway patent: Yes Spontaneous unlabored respirations: Yes Mental status: Awake and Calm nausea: No Vomiting: No Anesthesia Complication: No Fluid Hydration Crystalloid volume administer (ml): 1,600 Total IV fluid infused: 1,600 Progress Note Anesthesia document: Postop Eval 1 completed: Yes
--- NOTE | 2025-06-22 14:07 | PCM.OPRPT ---
Operative Report (Standard) Operative Information Date of Procedure: 06/22/25 Pre-Operative Diagnosis: Right hip DJD Post-Operative Diagnosis: Same Surgery/Procedure Performed: Right total hip arthroplasty customer care agent: Yes Manager Marketing Communications: Trey Arteaga Tasks completed by first responder: Opening & closing Type of Anesthesia: Spinal RN Documented Start/Stop Times: Operation Date: 06/22/25 11:15 Case Time Into Pre-Op 06/22/25 09:13 Anesthesia Start 06/22/25 11:32 Into Room 06/22/25 11:32 Out of Pre-Op 06/22/25 11:49 Procedure Start 06/22/25 12:04 Procedure End 06/22/25 13:44 Anesthesia End 06/22/25 13:49 Out of Room 06/22/25 13:49 Into Recovery 06/22/25 13:51 Procedure Start Time: 12:04 Procedure Stop Time: 13:44 Select all DRAINS/GRAFTS/IMPLANTS that apply: Implanted device Implanted device details: [place] Estimated Blood Loss: 150 Specimen collected: Yes Description of specimen(s) removed: Femoral head Description of surgery: Preoperative diagnosis: Right hip DJD Postoperative diagnosis: Same Procedure: CT-guided Makoplasty assisted right total hip arthroplasty Implants: [place] Accolade II stem size 4, 127 degree neck angle 0 head neck length 50 mm Trident II acetabular shell with 40 mm cancellous screw 32mm ceramic head, 10 degree Trident X3 polyethylene insert. Anesthesia: Spinal EBL: 150 cc Complications: None Condition: Stable to PACU Indication for procedure: This is a 75-year-old female who has had long-standing arthrosis of the hip who has failed conservative treatment and wished to undergo total hip arthroplasty. We did discuss operative versus nonoperative intervention including risks of bleeding, infection , nerve artery tissue damage, need for further surgery, fracture, leg length discrepancy dislocation blood clot and need for postoperative physical therapy and postoperative expectations. An informed consent was signed. Procedure: Patient was met in the preoperative holding area once again the operative extremity was identified by both patient and physician and was marked. Patient was met by anesthesia . Anesthesia was started. patient was then positioned in the lateral decubitus position on a well-padded pegboard with an axillary roll. All bony prominences were checked and padded. The patient was prepped and draped in the usual sterile fashion. A timeout was called to ensure the proper patient procedure and extremity were being contemplated. Anatomic landmarks were palpated and marked for a standard posterior lateral approach. Prior to this the ASIS was palpated and 3 fingerbreadths proximal to this 3 pins were placed at a 45 degree angle into the iliac crest with good purchase, stab incisions were made with a 15 blade into the skin prior to placement. The Makoplasty array was then secured. A 10 blade scalpel was used to make a posterior incision through the skin and subcutaneous tissue. retractors were used and electrocautery was used to maintain meticulous hemostasis and dissect full-thickness flaps until the gluteal fascia was reached. The gluteal fascia was incised in line with the gluteal fibers. The bursal tissue was then freed from the underside and a Charnley retractor was placed. The femoral trochanteric checkpoint was placed and leg length was assessed using the trochanteric checkpoint and an EKG lead that was placed on the knee prior to prepping the leg .the fat pad was then elevated off of the external rotators with electrocautery and the external rotators were dissected off of the greater trochanter including the piriformis and were tagged with #1 Ethibond for later repair. The joint capsule opened with posterior trapdoor technique. The hip was surgically dislocated. The measurement on the preoperative CT from the top of the lesser trochanter to the femoral neck cut was marked Hohmann was placed around the lesser trochanter. A neck cutting guide was used to jake the neck with a Bovie and an oscillating saw was used complete the femoral neck cut. The femoral head was then removed and sized. We then turned our attention to the acetabulum. A Bovie was used to make a perforation in the anterior joint capsule and a Rodriguez retractor was placed this was repeated in the 6 o'clock position and a wide won was placed there. With a long handled knife the labral and pulvinar tissue were removed. We then registered the acetabulum with the pointing array and confirmed our landmarks. Once the socket was thoroughly prepared and labral tissue and pulvinar was removed we single reamed with the robotic arm. We then used the robotic arm to position the acetabular implant and impacted it into place under robotic guidance. We then proceeded to place a posterior superior screw by drilling first measuring and inserting the screw. We then inserted a trial liner. And turned our attention back to the femur at this point a femoral elevator was used. As well as a pointed wide Hohmann around the lesser trochanter and a Hohmann to help retract the gluteus medius. A box chisel was used to remove excess lateral neck followed by a canal finder and a lateralizing reamer. This was followed by sequential broaches. Attention was made of the version within the canal based on preoperative templating. Once the final broach was seated we then trialed reduced the hip it was determined that a 127 degree neck angle with a -4 neck length was the appropriate size. We then checked stability with shuck testing as well as flexion and internal rotation. then proceeded with hip extension and checked leg lengths at the knees and heels as well as with the trochanteric checkpoint and knee EKG lead. At this point trials were removed. A liner was inserted to the cup. The femoral stem was inserted. then proceeded to impact the femoral head onto the Lacho taper. We then surgically reduce the hip check stability again and leg lengths and unfortunately there was some instability posteriorly and it was determined it is best to increase to a 0 neck length the ceramic head was removed and the 0 neck length head was inserted. Betadine rinse was allowed to sit for 5 minutes while everyone changed their gloves. Thorough irrigation was performed. Followed by closure of the external rotators with #2 FiberWire followed by closure of gluteal fascia with #1 Ethibond. 0 Vicryl fat stitches and 2-0 Vicryl subcutaneous stitches and mack in the skin. Lowry were placed in the skin pin sites over the iliac crest and dressed with a Mepilex dressing. The main incision was dressed with a Mepilex ag dressing and an abduction pillow was placed. Patient tolerated the procedure well there was no intraoperative complications all counts were correct and the patient was brought back to the PACU in stable condition Surgical Findings: As above Complications Complications: No
--- NOTE | 2025-06-22 14:11 | POSTOPAN2_ITS ---
Anesthesia Postop Eval I Sum Postop Eval Completion status Anesthesia document: Postop Eval 1 completed: Yes Anesthesia Postop Eval I Summary Anesthesia Postop Eval I Summary: Anesthesia Postop Eval I: Assessment Summary Airway patent Yes 06/22/25 13:56 [email or web address] Spontaneous unlabored Yes 06/22/25 13:56 IMPROVEMENT [email or web address] respirations Mental status Awake,Calm 06/22/25 13:56 IMPROVEMENT [email or web address] nausea No 06/22/25 13:56 IMPROVEMENT LEADER.SHOF Vomiting No 06/22/25 13:56 IMPROVEMENT LEADER.SHOF Anesthesia Postop Eval I: Fluid Summary Crystalloid volume administer 1,600 06/22/25 13:56 IMPROVEMENT LEADER.SHOF (ml) Colloids volume administered ( ml) Blood Product volume administered (ml) Total IV fluid infused 1,600 06/22/25 13:56 IMPROVEMENT LEADER.SHOF Anesthesia Postop Eval I: Summary Notes Anesthesia Complication No 06/22/25 13:56 IMPROVEMENT LEADER.SHOF Anesthesia Complication Comment: Post-operative progress note Anesthesia: Postop Eval II Evaluation Mental status: Awake and Calm Pain Level: 0 nausea: No Vomiting: No Complications Anesthesia Complication: No
--- NOTE | 2025-06-22 14:11 | PCM.POSTANE2 ---
Anesthesia Postop Eval I Sum Postop Eval Completion status Anesthesia document: Postop Eval 1 completed: Yes Anesthesia Postop Eval I Summary Anesthesia Postop Eval I Summary: Anesthesia Postop Eval I: Assessment Summary Airway patent Yes 06/22/25 13:56 VP [email or web address] Spontaneous unlabored Yes 06/22/25 13:56 VP BIOLOGY.SHOF respirations Mental status Awake,Calm 06/22/25 13:56 VP BIOLOGY.SHOF nausea No 06/22/25 13:56 VP BIOLOGY.SHOF Vomiting No 06/22/25 13:56 VP BIOLOGY.SHOF Anesthesia Postop Eval I: Fluid Summary Crystalloid volume administer 1,600 06/22/25 13:56 VP BIOLOGY.SHOF (ml) Colloids volume administered ( ml) Blood Product volume administered (ml) Total IV fluid infused 1,600 06/22/25 13:56 VP BIOLOGY.SHOF Anesthesia Postop Eval I: Summary Notes Anesthesia Complication No 06/22/25 13:56 VP BIOLOGY.SHOF Anesthesia Complication Comment: Post-operative progress note Anesthesia: Postop Eval II Evaluation Mental status: Awake and Calm Pain Level: 0 nausea: No Vomiting: No Complications Anesthesia Complication: No
--- NOTE | 2025-06-22 14:40 | RAD_ITS ---
PROCEDURE: HIP MIN 2 VIEWS (PORTABLE) 06/22/2025 REASON FOR EXAM: POST OP TECHNIQUE: Procedure Code: RADH_P Modality: DX Procedure: HIP MIN 2 VIEWS (PORTABLE) Laterality: FINDINGS: Status post right hip arthroplasty. Surrounding soft tissue swelling and air which is expected postsurgically. Overlying skin mack. [id number] left hip degenerative changes. A sacral stimulator is present. RAD/Hip Min 2 Views (Portable) IMPRESSION: Intact right hip arthroplasty. Reading Location: [id number]
[2025-06-22] MEDS: Lactated Ringers 1,000 ML 125 ML IV (17:09)
--- NOTE | 2025-06-22 18:01 | POSTOPAN2_ITS ---
Anesthesia Postop Eval I Sum Postop Eval Completion status Anesthesia document: Postop Eval 1 completed: Yes Anesthesia Postop Eval I Summary Anesthesia Postop Eval I Summary: Anesthesia Postop Eval I: Assessment Summary Airway patent Yes 06/22/25 13:56 CARTOGRAPHIC TECHNICIAN.SHOF Spontaneous unlabored Yes 06/22/25 13:56 CARTOGRAPHIC TECHNICIAN.SHOF respirations Mental status Awake,Calm 06/22/25 14:11 CARTOGRAPHIC TECHNICIAN.SHOF nausea No 06/22/25 14:11 CARTOGRAPHIC TECHNICIAN.SHOF Vomiting No 06/22/25 14:11 CARTOGRAPHIC TECHNICIAN.SHOF Anesthesia Postop Eval I: Fluid Summary Crystalloid volume administer 1,600 06/22/25 13:56 CARTOGRAPHIC TECHNICIAN.SHOF (ml) Colloids volume administered ( ml) Blood Product volume administered (ml) Total IV fluid infused 1,600 06/22/25 13:56 CARTOGRAPHIC TECHNICIAN.SHOF Anesthesia Postop Eval I: Summary Notes Anesthesia Complication No 06/22/25 14:11 CARTOGRAPHIC TECHNICIAN.SHOF Anesthesia Complication Comment: Post-operative progress note Anesthesia: Postop Eval II Evaluation Mental status: Awake Pain Level: 1 nausea: No Vomiting: No Progress Note Post-operative progress note: Patient did have some nausea in PACU. She got Benadryl and Reglan which helped the nausea but made her sleepy. She was kept an extra 30 minutes to ensure proper ventilation and that she was waking up adequately. Inspire X was used to stimulate her lungs. Complications Anesthesia Complication: No
--- NOTE | 2025-06-22 18:01 | PCM.POSTANE2 ---
Anesthesia Postop Eval I Sum Postop Eval Completion status Anesthesia document: Postop Eval 1 completed: Yes Anesthesia Postop Eval I Summary Anesthesia Postop Eval I Summary: Anesthesia Postop Eval I: Assessment Summary Airway patent Yes 06/22/25 13:56 LAWN CARE WORKER.SHOF Spontaneous unlabored Yes 06/22/25 13:56 LAWN CARE WORKER.SHOF respirations Mental status Awake,Calm 06/22/25 14:11 LAWN CARE WORKER.SHOF nausea No 06/22/25 14:11 LAWN CARE WORKER.SHOF Vomiting No 06/22/25 14:11 LAWN CARE WORKER.SHOF Anesthesia Postop Eval I: Fluid Summary Crystalloid volume administer 1,600 06/22/25 13:56 LAWN CARE WORKER.SHOF (ml) Colloids volume administered ( ml) Blood Product volume administered (ml) Total IV fluid infused 1,600 06/22/25 13:56 LAWN CARE WORKER.SHOF Anesthesia Postop Eval I: Summary Notes Anesthesia Complication No 06/22/25 14:11 LAWN CARE WORKER.SHOF Anesthesia Complication Comment: Post-operative progress note Anesthesia: Postop Eval II Evaluation Mental status: Awake Pain Level: 1 nausea: No Vomiting: No Progress Note Post-operative progress note: Patient did have some nausea in PACU. She got Benadryl and Reglan which helped the nausea but made her sleepy. She was kept an extra 30 minutes to ensure proper ventilation and that she was waking up adequately. Inspire X was used to stimulate her lungs. Complications Anesthesia Complication: No
[2025-06-22] MEDS: Cefazolin 2 GM in 0.9% Normal Saline (100mL Bag) 100 ML IV (19:14)
--- NOTE | 2025-06-22 21:08 | PCM.CONS.GEN ---
Assessment & Plan Assessment/Plan (1) Arthritis of right hip: PLAN: Plan # History of CVA - History of right sided deficits - Continue statin, resume aspirin when okay to do so with primary service #GERD -Continue PPI #Hypertension - Can continue amlodipine but will hold other 2 blood pressure medications to allow room for pain control and avoid hypotension - Add back as blood pressure tolerates #Depression/anxiety -Continue home medications # Right hip DJD - Status post right total hip arthroplasty with Dr. Blanchard 06/22/2025 - Management/pain management per primary #DVT ppx: Timing and agent at discretion of primary Gay Renee MD Time spent in the patient's overall evaluation, decision-making process, review of diagnostic data, adjustment of management, discussion with other providers, nursing and ancillary staff involved in patient's care documentation, 17 Minutes HPI Consult Data Date of Consult: 06/22/25 HPI Narrative Reason for Consultation: Postop medical management HPI Narrative: FLOR MEDINA, is a75 y/o F with a history of hypertension, CVA, GERD, depression who presented to [facility] 06/22/[facility]25 for a right total hip arthroplasty. Hospitalist consulted for postoperative medical management. Patient evaluated bedside. She reports feeling tired but well overall, has urinated twice, has not had a bowel movement and feels like she needs to, no nausea, no chest pain or shortness of breath. No other new acute complaints [facility] Medical History Carpal tunnel syndrome of right wrist Yeast infection Tinea corporis URI (upper respiratory infection) Post-menopausal Walker as ambulation aid Anemia Dietary restriction Constipation Asthma History of pain when walking History of edema Family history of colon cancer in mother Hx of bladder problems Wears glasses Bipolar disorder Arthritis Bladder disease High cholesterol Gastric reflux Non-smoker CPAP (continuous positive airway pressure) dependence History of echocardiogram History of stress test Stroke/cerebrovascular accident Hx of migraines Radicular pain in left arm Obesity (BMI 30.0-34.9) Depression Bipolar 1 disorder Hypertension Home Medications Medication Instructions Recorded Last Taken Type multivitamin (Daily Multiple 1 ea PO DAILY supplement 08/22/15 06/20/25 History tablet) handicap placard #1 ea 11/20/23 Unknown Rx Rollator walker with brakes #1 ea 05/19/24 Unknown Rx acetaminophen 650 mg 650 mg PO Q12H PRN pain 05/19/24 06/21/25 History tablet,extended release (8 Hour Pain Reliever) blood pressure monitor (Blood #1 ea 05/19/24 Unknown Rx Pressure Kit) sertraline 100 mg tablet 100 mg PO DAILY DEPRESSION #90 tabs 02/10/25 06/21/25 Rx calcium carbonate (Calcium 500) 1,000 mg PO DAILY PRN dyspepsia 02/11/25 02/28/25 History pantoprazole 40 mg tablet,delayed 40 mg PO DAILY GERD 02/11/25 06/21/25 History release propranolol 120 mg capsule,24 120 mg PO DAILY BP #90 caps 02/23/25 06/21/25 Rx hr,extended release omeprazole magnesium 20 mg 20 mg PO DAILY gerd 03/02/25 06/21/25 History tablet,delayed release (Prilosec OTC) nystatin 100,000 unit/gram topical 1 applic topical TID ABD YEAST 04/19/25 06/21/25 Rx powder INFECTION #60 grams aspirin 81 mg chewable tablet 81 mg PO QDAY HEART HEALTH 04/22/25 06/15/25 History cetirizine 10 mg capsule (Zyrtec) 10 mg PO QDAY PRN ALLERGIES 04/22/25 Unknown History atorvastatin 40 mg tablet 40 mg PO QHS HDL #90 tabs 04/26/25 06/21/25 Rx amlodipine 5 mg tablet 10 mg (2 x 5 mg) PO DAILY BP 90 05/07/25 06/21/25 Rx days #180 tabs montelukast 10 mg tablet 10 mg PO QHS asthma #90 tabs 06/02/25 06/21/25 Rx (Singulair) ramipril 5 mg capsule 5 mg PO QDAY BP #90 caps 06/02/25 06/21/25 Rx Allergy/AdvReac Type Severity Reaction Status Date / Time codeine Allergy Other Verified 06/22/25 09:59 Penicillins Allergy Itching Verified 06/22/25 09:59 Afiejda-PCH-WoP Reductase Allergy Unknown Verified 06/22/25 09:59 Inhibitor (Sxvdccy-Ddc-Tsc Reductase Inhibitor) Sulfa (Sulfonamide Allergy Itching Verified 06/22/25 09:59 Antibiotics) Family History Mother Colon cancer CAD (coronary artery disease) Angina at rest Breast cancer Cervical cancer Depression Hypertension Grandmother Diabetes Maternal grandmother CAD (coronary artery disease) Arthritis Heart disease Grandfather CAD (coronary artery disease) Bleeding disorder Father CAD (coronary artery disease) Hypertension Surgical History Hx of colonoscopy History of esophagogastroduodenoscopy (EGD) Hx of surgical procedure History of bladder suspension procedure H/O: hysterectomy Social History household members: none housing: house current occupational status: retired 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 sexually active: No Smoking Status: Never smoker Electronic Cigarette Use: not used alcohol intake: never substance use type: does not use what type of physical activity do you participate in: none seatbelt use: always do you feel safe at home: Yes ROS ROS Narrative ROS reviewed and pertinent positives and negatives as above Physical Exam Narrative General: Alert, no apparent distress HEENT: Atraumatic, normocephalic Eyes: Anicteric, normal conjunctiva, extraocular movements grossly intact Neck: Supple Respiratory: Clear to auscultation bilaterally, normal respiratory effort Cardiovascular: Regular rate and rhythm GI: Soft, nontender, nondistended Extremities: Leg postop Musculoskeletal: Patient is postop from hip arthroplasty Neuro: No overt focal neurological deficits Skin: No rashes appreciated Psych: Cooperative Lab / Micro Data 06/17/25 08:09 06/17/25 08:09 Labs: Laboratory Results - last 24 hr 06/22/25 09:30: POC Glucose 115 H Imaging Radiology Impression Hip X-Ray 06/22/25 14:40 IMPRESSION: Intact right hip arthroplasty. Reading Location: [id number] Charges/Coding Visit Charges Office Visits / Consults: 14243 OV L2 Est 10min
[2025-06-22] MEDS: Senna/Docusate Sodium 1 Tablet 2 TABLET PO (21:41)
[2025-06-23] VITALS (7 sets, daily range): BP systolic 112–137; BP diastolic 49–66; PULSE 68–82; RESP 18; TEMP 36.1–36.8; O2SAT 94–99
[2025-06-23] MEDS: Cefazolin 2 GM in 0.9% Normal Saline (100mL Bag) 100 ML IV ×3 (02:38→18:36)
[2025-06-23] MEDS: APIXABAN 2.5 MG TABLET (WCH) PO ×2 (06:09→21:55)
[2025-06-23 07:05] LABS: Hematocrit 29.2 % (37-47); Hemoglobin 9.4 g/dL (12.0-15.0); Immature Granulocytes Count 0.030 X10^3/uL (0.0-0.0); Mean Corp Hgb Conc 32.2 g/dL (32-36); Mean Corpuscular Volume 86.4 fL (81-99); Mean Platelet Vol. 10.7 fl (6.2-12.0); NRBC Flagged by Analyzer 0 % (0-5); Platelet Count 198 K/mm3 (150-450); RBC Distribution Width CV 13.9 % (11.6-14.6); RBC Distribution Width SD 43.1 fl (35.1-43.9); Red Blood Count 3.38 M/mm3 (4.2-5.4); White Blood Count 9.2 K/mm3 (4.4-11.0)
[2025-06-23 07:44] LABS: Anion Gap 11 (5-15); BUN 15 mg/dL (4-19); BUN/Creat Ratio 16.9 RATIO (10-20); Calcium,Total 8.9 mg/dL (7.6-11.0); Carbon Dioxide 24.6 mmol/L (21.0-32.0); Chloride 102 mmol/L (98-108); Estimated Creatinine Clearance 62.19 ml/min (50-250); Glucose 128 mg/dL (70-99); Potassium 4.3 mmol/L (3.3-5.1)
--- NOTE | 2025-06-23 08:31 | PN.ORTHO_ITS ---
Subjective Subjective Seen and examined, some pain but controlled, no fevers chills , admits to mild nausea but not bad she did have oxygen added on this morning she does admit to having chronic sleep apnea when she is not always compliant with her CPAP machine but she is going to have it brought in today Objective Data Objective Data Vital Signs: Vital Signs Temp Pulse Resp BP Pulse Ox O2 Del Method O2 Flow Rate 97.7 F L 68 18 134/66 H 94 Nasal Cannula 2 06/23/25 06:04 06/23/25 06:04 06/23/25 06:04 06/23/25 06:04 06/23/25 07:12 06/23/25 07:12 06/23/25 07:12 Oxygen Flow Rate (L/min) 2 Oxygen Delivery Method Nasal Cannula Weight: 191 lb 12.835 oz Body Mass Index (BMI) 32.9 Intake & Output: Intake and Output for Last 24 Hours 06/21/25 06/22/25 06/23/25 23:59 23:59 23:59 Intake Total 1588.25 / 1588.25 534 / 534 Output Total 700 / 700 Balance 888.25 / 888.25 534 / 534 Lab / Micro Data 06/23/25 06:41 06/23/25 06:41 Labs: Laboratory Results - last 24 hr 06/22/25 09:30: POC Glucose 115 H 06/23/25 06:41: WBC 9.2, RBC 3.38 L, Hgb 9.4 L, Hct 29.2 L, MCV 86.4, MCH 27.8, MCHC 32.2, RDW Std Deviation 43.1, RDW Coeff of Fercho 13.9, Plt Count 198, MPV 10.7, Immature Gran % (Auto) 0.300, Neut % (Auto) 58.5, Lymph % (Auto) 29.4, M tha % (Auto) 11.5 H, Eos % (Auto) 0.1, Baso % (Auto) 0.2, Absolute Neuts (auto) 5.4, Absolute Lymphs (auto) 2.69, Nucleated RBC % 0, Sodium 138, Potassium 4.3, Chloride 102, Carbon Dioxide 24.6, Anion Gap 11, BUN 15, Creatinine 0.86, Estim Creat Clear Calc 62.19, Est GFR (MDRD) Non-Af 71, BUN/Creatinine Ratio 16.9, G lucose 128 H, Calcium 8.9 Micro: Microbiology 06/17/25 08:09 Swab (Method) Nasal Screen MRSA/MSSA - Final Radiography Diagnostic Testing: Radiology Impression Hip X-Ray 06/22/25 14:40 IMPRESSION: Intact right hip arthroplasty. Reading Location: [address] Physical Exam Const alert, oriented x3 and no apparent distress Extremity Extremity Narrative: Right hip dressing clean dry intact compartment soft neuro vastly intact EHL tibialis anterior gastrocsoleus intact station to light touch to palpable pedal pulse Assessment & Plan Assessment/Plan (1) S/P total hip arthroplasty: QUALIFIERS: Laterality: right Qualified Code(s): Z96.641 - Presence of right artificial hip joint (2) Sleep apnea: PLAN: Plan Postop day #1 right total hip arthroplasty PT OT weightbearing as tolerated DVT prophylaxis start on Eliquis 2.5 mg twice daily for 3 weeks postop SCDs and AUGUSTO gastelume while in the hospital Oxygen slight dip low 90s put on 2 L nasal cannula this morning denies shortness of breath or chest pain or any other symptoms patient is going to bring in her CPAP machine while she is here Pain control oxycodone and Tylenol DC planning to rehab once bed available.
--- NOTE | 2025-06-23 08:34 | DCINST_ITS ---
Documented by User: Dr. Dain Blanchard DO 06/23/25 08:44 Discharge Instructions DC O2, CPAP, BIPAP needs Home O2 Discharge instructions: No Dressing / Incision Call your doctor if you observe: Shortness of breath and Chest pain Additional Dressing/Incision Instructions:: Do not shower for 5 days postop. May Begin daily showering with warm water antibacterial soap postop day #5 and then daily. Leave the dressing on for 5 days postoperatively then remove prior to first shower and change dressing daily after this until no drainage for 2 consecutive days then may leave open to air. If you decide not shower 5 days postop and wish to sponge bath only, then may leave dressing undisturbed for up to 1 week, but must remove prior to first shower. Do not submerge for 3 weeks. If not showering daily after the initial dressing is removed you must clean incision and change dressing daily after the dressing comes off, must come off by 7 days postop. Do not allow animals near the incision area. Keep clean. Follow hip precautions that were reviewed in hospital. Wear compression stockings, may remove at night. Start physical therapy as directed in hospital. Follow prescriptions instructions do not take any other pain medication or differ dosing without consulting your physician. Do not take oral NSAIDs until blood thinner has been completed , then may begin the day after completion if needed . Call Dr. Blanchard's office with any concerns. Follow Up Care Please Follow Up With: Dain Blanchard DO When: 2 weeks Test Results: Test results from this visit will be discussed in further detail at your follow- up appointment, if applicable. Discharge Plan Admission Admit Date/Time: 06/22/25 14:00 Primary Reason for Your Visit: Right total hip arthroplasty Attending Provider: Dain Blanchard Primary Care Provider: Geovanny Taylor Consulting Providers: Nimisha Olvera; Gay Renee; Raúl Benjamin Discharge Orders/Prescriptions Prescriptions: New acetaminophen 500 mg tablet 1,000 mg PO Q6H Qty: 100 2RF Eliquis 2.5 mg tablet 2.5 mg PO BID Qty: 42 0RF oxycodone 5 mg tablet 5 - 10 mg PO Q6H PRN (Reason: pain) 7 Days Qty: 60 0RF Continued sertraline 100 mg tablet 100 mg PO DAILY Qty: 90 1RF Zyrtec 10 mg capsule 10 mg PO QDAY PRN (Reason: ALLERGIES) aspirin 81 mg tablet,chewable 81 mg PO QDAY multivitamin [Daily Multiple] 1 EACH tablet 1 ea PO DAILY Patient Comments: Supplement calcium carbonate [Calcium 500] 500 mg calcium (1,250 mg) tablet,chewable 1,000 mg PO DAILY PRN (Reason: dyspepsia) pantoprazole 40 mg tablet,delayed release (DR/EC) 40 mg PO DAILY propranolol 120 mg capsule,extended release 24 hr 120 mg PO DAILY Qty: 90 1RF nystatin 100,000 unit/gram powder 1 applic topical TID Qty: 60 3RF Rx Instructions: apply 10 min after application of cream atorvastatin 40 mg tablet 40 mg PO QHS Qty: 90 0RF amlodipine 5 mg tablet 10 mg PO DAILY 90 Days Qty: 180 1RF montelukast [Singulair] 10 mg tablet 10 mg PO QHS Qty: 90 1RF ramipril 5 mg capsule 5 mg PO QDAY Qty: 90 0RF Discontinued acetaminophen [8 Hour Pain Reliever] 650 mg tablet extended release 650 mg PO Q12H PRN (Reason: pain) No Action (DME) handicap placard See Rx Instructions .ROUTE .MEDSUPPLY Qty: 1 0RF Rx Instructions: Length of time: 5 years Diagnosis - Impaired physical mobility (z74.09) (DME) blood pressure monitor [Blood Pressure Kit] Kit See Rx Instructions .Route Qty: 1 0RF Rx Instructions: As directed (DME) Rollator walker with brakes See Rx Instructions .Route .MEDSUPPLY Qty: 1 0RF Rx Instructions: As directed omeprazole magnesium [Prilosec OTC] 20 mg tablet,delayed release (DR/EC) 20 mg PO DAILY Other Ambulatory Orders: 12 Lead EKG (Routine) Location: None Selected Ordered By: Dr. Dain Blanchard Referrals / Follow Up: Geovanny Taylor PA [Primary Care Provider, Internal Medicine] Disposition Disposition (needs filled in before D/C Order can be placed): Inpatient Rehab Unit/Facility Documented by User: ANGELINA Tran 06/24/25 10:35 Discharge Instructions Dressing / Incision Additional Dressing/Incision Instructions:: Do not shower for 5 days postop. May Begin daily showering with warm water antibacterial soap postop day #5 and then daily. Leave the dressing on for 5 days postoperatively then remove prior to first shower and change dressing daily after this until no drainage for 2 consecutive days then may leave open to air. If you decide not shower 5 days postop and wish to sponge bath only, then may leave dressing undisturbed for up to 1 week, but must remove prior to first shower. Do not submerge for 3 weeks. If not showering daily after the initial dressing is removed you must clean incision and change dressing daily after the dressing comes off, must come off by 7 days postop. Do not allow animals near the incision area. Keep clean. Follow hip precautions that were reviewed in hospital. Wear compression stockings, may remove at night. Start physical therapy as directed in hospital. Follow prescriptions instructions do not take any other pain medication or differ dosing without consulting your physician. Do not take oral NSAIDs until blood thinner has been completed , then may begin the day after completion if needed . Call Dr. Blanchard's office with any concerns. Discharge Plan Admission Admit Date/Time: 06/22/25 14:00 Primary Reason for Your Visit: Right total hip arthroplasty Attending Provider: Dain Blanchard Primary Care Provider: Geovanny Taylor Consulting Providers: Nimisha Olvera; Gay Renee; Raúl Benjamin Discharge Orders/Prescriptions Prescriptions: New acetaminophen 500 mg tablet 1,000 mg PO Q6H Qty: 100 2RF Eliquis 2.5 mg tablet 2.5 mg PO BID Qty: 42 0RF oxycodone 5 mg tablet 5 - 10 mg PO Q6H PRN (Reason: pain) 7 Days Qty: 60 0RF Continued sertraline 100 mg tablet 100 mg PO DAILY Qty: 90 1RF Zyrtec 10 mg capsule 10 mg PO QDAY PRN (Reason: ALLERGIES) aspirin 81 mg tablet,chewable 81 mg PO QDAY multivitamin [Daily Multiple] 1 EACH tablet 1 ea PO DAILY Patient Comments: Supplement calcium carbonate [Calcium 500] 500 mg calcium (1,250 mg) tablet,chewable 1,000 mg PO DAILY PRN (Reason: dyspepsia) pantoprazole 40 mg tablet,delayed release (DR/EC) 40 mg PO DAILY propranolol 120 mg capsule,extended release 24 hr 120 mg PO DAILY Qty: 90 1RF nystatin 100,000 unit/gram powder 1 applic topical TID Qty: 60 3RF Rx Instructions: apply 10 min after application of cream atorvastatin 40 mg tablet 40 mg PO QHS Qty: 90 0RF amlodipine 5 mg tablet 10 mg PO DAILY 90 Days Qty: 180 1RF montelukast [Singulair] 10 mg tablet 10 mg PO QHS Qty: 90 1RF ramipril 5 mg capsule 5 mg PO QDAY Qty: 90 0RF Discontinued acetaminophen [8 Hour Pain Reliever] 650 mg tablet extended release 650 mg PO Q12H PRN (Reason: pain) No Action (DME) handicap placard See Rx Instructions .ROUTE .MEDSUPPLY Qty: 1 0RF Rx Instructions: Length of time: 5 years Diagnosis - Impaired physical mobility (z74.09) (DME) blood pressure monitor [Blood Pressure Kit] Kit See Rx Instructions .Route Qty: 1 0RF Rx Instructions: As directed (DME) Rollator walker with brakes See Rx Instructions .Route .MEDSUPPLY Qty: 1 0RF Rx Instructions: As directed omeprazole magnesium [Prilosec OTC] 20 mg tablet,delayed release (DR/EC) 20 mg PO DAILY Other Ambulatory Orders: 12 Lead EKG (Routine) Location: None Selected Ordered By: Dr. Dain Blanchard Referrals / Follow Up: Geovanny Taylor PA [Primary Care Provider, Internal Medicine] Disposition Disposition (needs filled in before D/C Order can be placed): Inpatient Rehab Unit/Facility
--- NOTE | 2025-06-23 08:44 | PCM.DC.SUM ---
Providers Date of Admission: 06/22/25 Primary Care Physician: SHARDA Marcum Consultations 06/22/25 14:00 Consult: Hospitalist Routine Consulting Provider: Gay Renee Reason for Consult: post of medical co-management EMERGENT Consult: No MD Notified: Yes Date Notified: 06/22/25 Time Notified: 16:48 Method of Notification: Text Reason For Visit: Right Total Hip Replacement Robotic Arm Assisted Diagnosis Discharge Diagnosis (1) S/P total hip arthroplasty: Status: Acute Code(s): Z96.649 - Presence of unspecified artificial hip joint Qualifiers: Laterality: right Qualified Code(s): Z96.641 - Presence of right artificial hip joint (2) Sleep apnea: Status: Acute Code(s): G47.30 - Sleep apnea, unspecified Plan Postop day #1 right total hip arthroplasty PT OT weightbearing as tolerated DVT prophylaxis start on Eliquis 2.5 mg twice daily for 3 weeks postop SCDs and [place]UG[place]O hose while in the hospital Oxygen slight dip low 90s put on 2 L nasal cannula this morning denies shortness of breath or chest pain or any other symptoms patient is going to bring in her CPAP machine while she is here Pain control oxycodone and Tylenol DC planning to rehab once bed available. Medications at Discharge Home Medications multivitamin (Daily Multiple tablet) 1 ea PO DAILY supplement 08/22/15 handicap placard #1 ea 11/20/23 Rollator walker with brakes #1 ea 05/19/24 blood pressure monitor (Blood Pressure Kit) #1 ea 05/19/24 sertraline 100 mg tablet 100 mg PO DAILY DEPRESSION #90 tabs 02/10/25 calcium carbonate (Calcium 500) 1,000 mg PO DAILY PRN dyspepsia 02/11/25 pantoprazole 40 mg tablet,delayed release 40 mg PO DAILY GERD 02/11/25 propranolol 120 mg capsule,24 hr,extended release 120 mg PO DAILY BP #90 caps 02/23/25 omeprazole magnesium 20 mg tablet,delayed release (Prilosec OTC) 20 mg PO DAILY gerd 03/02/25 nystatin 100,000 unit/gram topical powder 1 applic topical TID ABD YEAST INFECTION #60 grams 04/19/25 aspirin 81 mg chewable tablet 81 mg PO QDAY [facility] 04/22/25 cetirizine 10 mg capsule (Zyrtec) 10 mg PO QDAY PRN ALLERGIES 04/22/25 atorvastatin 40 mg tablet 40 mg PO QHS HDL #90 tabs 04/26/25 amlodipine 5 mg tablet 10 mg (2 x 5 mg) PO DAILY BP 90 days #180 tabs 05/07/25 montelukast 10 mg tablet (Singulair) 10 mg PO QHS asthma #90 tabs 06/02/25 ramipril 5 mg capsule 5 mg PO QDAY BP #90 caps 06/02/25 acetaminophen 500 mg tablet 1,000 mg (2 x 500 mg) PO Q6H pain #100 tabs 06/23/25 apixaban 2.5 mg tablet (Eliquis) 2.5 mg PO BID blood thinner #42 tabs 06/23/25 oxycodone 5 mg tablet 5 - 10 mg (1 - 2 x 5 mg) PO Q6H PRN pain 7 days #60 tabs 06/23/25 Hospital Course Operations total hip replacement Summary of Care Provided Hospital Course: Patient with long-standing history of severe right hip DJD who is failed conservative treatment. Patient underwent total hip arthroplasty day of admission. Patient did receive pre-and postoperative antibiotics which were discontinued within 23 hours postoperatively. Patient did receive spinal anesthesia and postoperatively pain was controlled with both IV and p.o. pain medication. Patient did receive 2 g of tranexamic acid. hemoglobin and hematocrit were monitored postoperatively as well as vital signs and the patient did not require any blood transfusion. Dressing will be changed daily beginning postop day #3 before shower will be removed and replaced after. Pt was started on Eliquis 2.5 mg twice daily postop day #1 for which will continue for 3 weeks post hospital discharge . Patient was seen by physical therapy was ambulating the halls well. patient will be discharged We will start outpatient physical as scheduled. will follow-up in the office in 2 weeks. No intrahospital complications. Weight / BMI Weight Weight: 191 lb 12.835 oz Body Mass Index (BMI) 32.9 ABG / Lab / Microbiology Data 06/23/25 06:41 06/23/25 06:41 Laboratory: Laboratory Results - last 24 hr 06/22/25 09:30: POC Glucose 115 H 06/23/25 06:41: WBC 9.2, RBC 3.38 L, Hgb 9.4 L, Hct 29.2 L, MCV 86.4, MCH 27.8, MCHC 32.2, RDW Std Deviation 43.1, RDW Coeff of Fercho 13.9, Plt Count 198, MPV 10.7, Immature Gran % (Auto) 0.300, Neut % (Auto) 58.5, Lymph % (Auto) 29.4, [place] % (Auto) 11.5 H, Eos % (Auto) 0.1, Baso % (Auto) 0.2, Absolute Neuts (auto) 5.4, Absolute Lymphs (auto) 2.69, Nucleated RBC % 0, Sodium 138, Potassium 4.3, Chloride 102, Carbon Dioxide 24.6, Anion Gap 11, BUN 15, Creatinine 0.86, Estim Creat Clear Calc 62.19, Est GFR (MDRD) Non-Af 71, BUN/Creatinine Ratio 16.9, Glucose 128 H, Calcium 8.9 Microbiology: Microbiology 06/17/25 08:09 Swab (Method) Nasal Screen MRSA/MSSA - Final Radiography Diagnostic Testing: Radiology Impression Hip X-Ray 06/22/25 14:40 IMPRESSION: Intact right hip arthroplasty. Reading Location: [address] D/C Instructions Weight Bearing Status: Full weight bearing Call your doctor if you observe: Shortness of breath and Chest pain Additional Dressing/Incision Instructions: Do not shower for 5 days postop. May Begin daily showering with warm water antibacterial soap postop day #5 and then daily. Leave the dressing on for 5 days postoperatively then remove prior to first shower and change dressing daily after this until no drainage for 2 consecutive days then may leave open to air. If you decide not shower 5 days postop and wish to sponge bath only, then may leave dressing undisturbed for up to 1 week, but must remove prior to first shower. Do not submerge for 3 weeks. If not showering daily after the initial dressing is removed you must clean incision and change dressing daily after the dressing comes off, must come off by 7 days postop. Do not allow animals near the incision area. Keep clean. Follow hip precautions that were reviewed in hospital. Wear compression stockings, may remove at night. Start physical therapy as directed in hospital. Follow prescriptions instructions do not take any other pain medication or differ dosing without consulting your physician. Do not take oral NSAIDs until blood thinner has been completed , then may begin the day after completion if needed . Call Dr. Blanchard's office with any concerns. DC O2, CPAP, BIPAP Needs Home O2 Discharge instructions: No Please Follow Up With: Dain Blanchard DO When: 2 weeks Meaningful Use Info Meaningful Use Meaningful Use Diagnoses (Choose all that apply): None applicable Discharge Plan Admission Admit Date/Time: 06/22/25 14:00 Primary Reason for Your Visit: Right total hip arthroplasty Attending Provider: Dain Blanchard Primary Care Provider: Geovanny Taylor Consulting Providers: Nimisha Olvera; Gay Renee; Raúl Benjamin Discharge Orders/Prescriptions Prescriptions: New acetaminophen 500 mg tablet 1,000 mg PO Q6H Qty: 100 2RF Eliquis 2.5 mg tablet 2.5 mg PO BID Qty: 42 0RF oxycodone 5 mg tablet 5 - 10 mg PO Q6H PRN (Reason: pain) 7 Days Qty: 60 0RF Continued sertraline 100 mg tablet 100 mg PO DAILY Qty: 90 1RF Zyrtec 10 mg capsule 10 mg PO QDAY PRN (Reason: ALLERGIES) aspirin 81 mg tablet,chewable 81 mg PO QDAY multivitamin [Daily Multiple] 1 EACH tablet 1 ea PO DAILY Patient Comments: Supplement calcium carbonate [Calcium 500] 500 mg calcium (1,250 mg) tablet,chewable 1,000 mg PO DAILY PRN (Reason: dyspepsia) pantoprazole 40 mg tablet,delayed release (DR/EC) 40 mg PO DAILY propranolol 120 mg capsule,extended release 24 hr 120 mg PO DAILY Qty: 90 1RF nystatin 100,000 unit/gram powder 1 applic topical TID Qty: 60 3RF Rx Instructions: apply 10 min after application of cream atorvastatin 40 mg tablet 40 mg PO QHS Qty: 90 0RF amlodipine 5 mg tablet 10 mg PO DAILY 90 Days Qty: 180 1RF montelukast [Singulair] 10 mg tablet 10 mg PO QHS Qty: 90 1RF ramipril 5 mg capsule 5 mg PO QDAY Qty: 90 0RF Discontinued acetaminophen [8 Hour Pain Reliever] 650 mg tablet extended release 650 mg PO Q12H PRN (Reason: pain) No Action (DME) handicap placard See Rx Instructions .ROUTE .MEDSUPPLY Qty: 1 0RF Rx Instructions: Length of time: 5 years Diagnosis - Impaired physical mobility (z74.09) (DME) blood pressure monitor [Blood Pressure Kit] Kit See Rx Instructions .Route Qty: 1 0RF Rx Instructions: As directed (DME) Rollator walker with brakes See Rx Instructions .Route .MEDSUPPLY Qty: 1 0RF Rx Instructions: As directed omeprazole magnesium [Prilosec OTC] 20 mg tablet,delayed release (DR/EC) 20 mg PO DAILY Other Ambulatory Orders: 12 Lead EKG (Routine) Location: None Selected Ordered By: Dr. Dain Blanchard Referrals / Follow Up: Geovanny Taylor PA [Primary Care Provider, Internal Medicine] Disposition Disposition (needs filled in before D/C Order can be placed): Inpatient Rehab Unit/Facility
--- NOTE | 2025-06-23 08:46 | PCM.TXEXTCAR ---
Documented by User: Dr. Dain Blanchard DO 06/23/25 08:47 Diet Diet Order/Speech Therapy: INPATIENT Hospital Diet / Speech Therapy Order(s) 06/22/25 17:14 Diet: Regular - General Type of Dietary Supplement:: Ensure Surgery DC O2, CPAP, BIPAP needs Home O2 Discharge instructions: No Wound(s) right hip: Wound Type: Surgical Incision Therapies Weight Bearing: Full weight bearing Physical Therapy: Eval and Treat Occupational Therapy: Eval and Treat Problem/Diagnosis (1) S/P total hip arthroplasty: Status: Acute Code(s): Z96.649 - Presence of unspecified artificial hip joint (2) Sleep apnea: Status: Acute Code(s): G47.30 - Sleep apnea, unspecified Plan Postop day #1 right total hip arthroplasty PT OT weightbearing as tolerated DVT prophylaxis start on Eliquis 2.5 mg twice daily for 3 weeks postop SCDs and [place] hose while in the hospital Oxygen slight dip low 90s put on 2 L nasal cannula this morning denies shortness of breath or chest pain or any other symptoms patient is going to bring in her CPAP machine while she is here Pain control oxycodone and Tylenol DC planning to rehab once bed available. Allergies/Procedures Done in Hospital Allergies codeine Allergy (Verified 06/22/25 09:59) Other Penicillins Allergy (Verified 06/22/25 09:59) Itching [id number]-[id number] Reductase Inhibitor Allergy (Verified 06/22/25 09:59) Unknown Sulfa (Sulfonamide Antibiotics) Allergy (Verified 06/22/25 09:59) Itching Type of Care/Length of Stay Estimated LOS: Convalescent Care Less Than 30 days Type of Care Needed: Acute Rehab Rehab Potential: Good Prognosis: Good Additional Orders/Day of Discharge Day of Discharge: 06/24/25 Follow Up Care Please Follow Up With: Dain Blanchard DO When: 2 weeks Discharge Plan Admission Admit Date/Time: 06/22/25 14:00 Primary Reason for Your Visit: Right total hip arthroplasty Attending Provider: Dain Blanchard Primary Care Provider: Geovanny Taylor Consulting Providers: Nimisha Olvera; Gay Renee; Raúl Benjamin Discharge Orders/Prescriptions Prescriptions: New acetaminophen 500 mg tablet 1,000 mg PO Q6H Qty: 100 2RF Eliquis 2.5 mg tablet 2.5 mg PO BID Qty: 42 0RF oxycodone 5 mg tablet 5 - 10 mg PO Q6H PRN (Reason: pain) 7 Days Qty: 60 0RF Continued sertraline 100 mg tablet 100 mg PO DAILY Qty: 90 1RF Zyrtec 10 mg capsule 10 mg PO QDAY PRN (Reason: ALLERGIES) aspirin 81 mg tablet,chewable 81 mg PO QDAY multivitamin [Daily Multiple] 1 EACH tablet 1 ea PO DAILY Patient Comments: Supplement calcium carbonate [Calcium 500] 500 mg calcium (1,250 mg) tablet,chewable 1,000 mg PO DAILY PRN (Reason: dyspepsia) pantoprazole 40 mg tablet,delayed release (DR/EC) 40 mg PO DAILY propranolol 120 mg capsule,extended release 24 hr 120 mg PO DAILY Qty: 90 1RF nystatin 100,000 unit/gram powder 1 applic topical TID Qty: 60 3RF Rx Instructions: apply 10 min after application of cream atorvastatin 40 mg tablet 40 mg PO QHS Qty: 90 0RF amlodipine 5 mg tablet 10 mg PO DAILY 90 Days Qty: 180 1RF montelukast [Singulair] 10 mg tablet 10 mg PO QHS Qty: 90 1RF ramipril 5 mg capsule 5 mg PO QDAY Qty: 90 0RF Discontinued acetaminophen [8 Hour Pain Reliever] 650 mg tablet extended release 650 mg PO Q12H PRN (Reason: pain) No Action (DME) handicap placard See Rx Instructions .ROUTE .MEDSUPPLY Qty: 1 0RF Rx Instructions: Length of time: 5 years Diagnosis - Impaired physical mobility (z74.09) (DME) blood pressure monitor [Blood Pressure Kit] Kit See Rx Instructions .Route Qty: 1 0RF Rx Instructions: As directed (DME) Rollator walker with brakes See Rx Instructions .Route .MEDSUPPLY Qty: 1 0RF Rx Instructions: As directed omeprazole magnesium [Prilosec OTC] 20 mg tablet,delayed release (DR/EC) 20 mg PO DAILY Other Ambulatory Orders: 12 Lead EKG (Routine) Location: None Selected Ordered By: Dr. Dain Blanchard Referrals / Follow Up: Geovanny Taylor, PA [Primary Care Provider, Internal Medicine] Disposition Disposition (needs filled in before D/C Order can be placed): Inpatient Rehab Unit/Facility (1) S/P total hip arthroplasty Qualifiers: Laterality: right Qualified Code(s): Z96.641 - Presence of right artificial hip joint Documented by User: ANGELINA Tran 06/24/25 10:33 Diet Diet Order/Speech Therapy: INPATIENT Hospital Diet / Speech Therapy Order(s) 06/22/25 17:14 Diet: Regular - General Type of Dietary Supplement:: Ensure Surgery Problem/Diagnosis (1) S/P total hip arthroplasty: Status: Acute Code(s): Z96.649 - Presence of unspecified artificial hip joint (2) Sleep apnea: Status: Acute Code(s): G47.30 - Sleep apnea, unspecified Plan Postop day #2 right total hip arthroplasty PT OT weightbearing as tolerated DVT prophylaxis started on Eliquis 2.5 mg twice daily for 3 weeks postop SCDs and [place] hose while in the hospital Continue CPAP use as previously ordered Pain control oxycodone and Tylenol Transfer to TCU Follow-up in Ortho in 2 weeks, sooner for changes or concerns This document has been transcribed using [employer] dictation software. There may be incorrect words, spelling, and punctuation. Allergies/Procedures Done in Hospital Allergies codeine Allergy (Verified 06/22/25 09:59) Other Penicillins Allergy (Verified 06/22/25 09:59) Itching [id number] Reductase Inhibitor Allergy (Verified 06/22/25 09:59) Unknown Sulfa (Sulfonamide Antibiotics) Allergy (Verified 06/22/25 09:59) Itching Discharge Plan Admission Admit Date/Time: 06/22/25 14:00 Primary Reason for Your Visit: Right total hip arthroplasty Attending Provider: Dain Blanchard Primary Care Provider: Geovanny Taylor Consulting Providers: Nimisha Olvera; Gay Renee; Raúl Benjamin Discharge Orders/Prescriptions Prescriptions: New acetaminophen 500 mg tablet 1,000 mg PO Q6H Qty: 100 2RF Eliquis 2.5 mg tablet 2.5 mg PO BID Qty: 42 0RF oxycodone 5 mg tablet 5 - 10 mg PO Q6H PRN (Reason: pain) 7 Days Qty: 60 0RF Continued sertraline 100 mg tablet 100 mg PO DAILY Qty: 90 1RF Zyrtec 10 mg capsule 10 mg PO QDAY PRN (Reason: ALLERGIES) aspirin 81 mg tablet,chewable 81 mg PO QDAY multivitamin [Daily Multiple] 1 EACH tablet 1 ea PO DAILY Patient Comments: Supplement calcium carbonate [Calcium 500] 500 mg calcium (1,250 mg) tablet,chewable 1,000 mg PO DAILY PRN (Reason: dyspepsia) pantoprazole 40 mg tablet,delayed release (DR/EC) 40 mg PO DAILY propranolol 120 mg capsule,extended release 24 hr 120 mg PO DAILY Qty: 90 1RF nystatin 100,000 unit/gram powder 1 applic topical TID Qty: 60 3RF Rx Instructions: apply 10 min after application of cream atorvastatin 40 mg tablet 40 mg PO QHS Qty: 90 0RF amlodipine 5 mg tablet 10 mg PO DAILY 90 Days Qty: 180 1RF montelukast [Singulair] 10 mg tablet 10 mg PO QHS Qty: 90 1RF ramipril 5 mg capsule 5 mg PO QDAY Qty: 90 0RF Discontinued acetaminophen [8 Hour Pain Reliever] 650 mg tablet extended release 650 mg PO Q12H PRN (Reason: pain) No Action (DME) handicap placard See Rx Instructions .ROUTE .MEDSUPPLY Qty: 1 0RF Rx Instructions: Length of time: 5 years Diagnosis - Impaired physical mobility (z74.09) (DME) blood pressure monitor [Blood Pressure Kit] Kit See Rx Instructions .Route Qty: 1 0RF Rx Instructions: As directed (DME) Rollator walker with brakes See Rx Instructions .Route .MEDSUPPLY Qty: 1 0RF Rx Instructions: As directed omeprazole magnesium [Prilosec OTC] 20 mg tablet,delayed release (DR/EC) 20 mg PO DAILY Other Ambulatory Orders: 12 Lead EKG (Routine) Location: None Selected Ordered By: Dr. Dain Blanchard Referrals / Follow Up: Geovanny Taylor PA [Primary Care Provider, Internal Medicine] Disposition Disposition (needs filled in before D/C Order can be placed): Inpatient Rehab Unit/Facility (1) S/P total hip arthroplasty Qualifiers: Laterality: right Qualified Code(s): Z96.641 - Presence of right artificial hip joint(1) S/P total hip arthroplasty Qualifiers: Laterality: right Qualified Code(s): Z96.641 - Presence of right artificial hip joint
[2025-06-23] MEDS: Senna/Docusate Sodium 1 Tablet 2 TABLET PO ×2 (09:12→21:55)
--- NOTE | 2025-06-23 09:15 | CASEMGMT ---
Discharge Planning A list of SNF providers including quality and resource use data and consistent with the patient's preferred geographic region, medical needs, and insurance network was created in [employer] Guide. This list was provided to the RN CM. Adriane Madrid, Discharge Planning Asst.
--- NOTE | 2025-06-23 11:30 | CASEMGMT ---
SW Assessment: Face to Face with pt for initial transition planning/care coordination assessment. SW introduced self and role at [facility], pt voices understanding and consents to assessment. Pt is A&O x4 and answers all questions appropriately at this time. Care providers, pharmacy, and demographics verified/updated. Admitting Dx: R total hip replacement PCP:Geovanny ROBIN Specialists: none Preferred Pharmacy: [facility] Insurance: [facility] Dual Prescription Benefit: yes LNOK: friend, Milagro, ex - Adriana Living Arrangements: Pt lives in an apartment alone. No stairs to enter. Transportation: Pt drives self and denies concerns with transportation at baseline. Pt has had a friend transport while hip was limiting mobility. DME: rollator, shower chair, walker HHC/SNF: [facility] IRU- 2021 Pt reports that she fels she needs rehab prior to return home. Pt selected TCU as FOC. KEMAR Nelson
[2025-06-23] MEDS: 0.9% Saline Lock 10 ML Syringe IV ×2 (11:44→21:55)
[2025-06-23] MEDS: FLU VACCINE HIGH DOSE 25-26(65YR UP) 180 MCG/0.5 ML SYRINGE IM (11:44)
--- NOTE | 2025-06-23 11:44 | CASEMGMT ---
Social Work- A list of SNF providers including quality and resource use data and consistent with the patient’s preferred geographic region, medical needs, and insurance network were provided from the CarePort Guide. Pt selected TCU as FOC. SW completed referral to TCU. TCU accepted and will start precert. KEMAR Nelson
[2025-06-24 02:42] VITALS: BP 156/70; PULSE 100; RESP 18; TEMP 36.5; O2SAT 96
--- NOTE | 2025-06-24 07:47 | PCM.PN.ORT ---
Subjective Subjective Shira is a pleasant 75-year-old female postop day 2 status post right FRANCI. Seen and examined. Patient in bed, PT into assist patient with out of bed to restroom. States adequate pain control with p.o. oxycodone overnight, no nausea. Reports ambulated in room to restroom yesterday with walker. Denies any fever or chills. Did not need supplemental O2 overnight. Objective Data Objective Data Vital Signs: Vital Signs Temp Pulse Resp BP Pulse Ox O2 Del Method O2 Flow Rate 97.7 F L 100 18 156/70 H 96 Room Air 2 06/24/25 02:42 06/24/25 02:42 06/24/25 02:42 06/24/25 02:42 06/24/25 02:42 06/24/25 02:42 06/23/25 21:58 Oxygen Flow Rate (L/min) 2 Oxygen Delivery Method Room Air Weight: 191 lb 12.835 oz Body Mass Index (BMI) 32.9 Intake & Output: Intake and Output for Last 24 Hours 06/22/25 06/23/25 06/24/25 23:59 23:59 23:59 Intake Total 1588.25 / 1588.25 1751.5 / 1751.5 300 / 300 Output Total 700 / 700 Balance 888.25 / 888.25 1751.5 / 1751.5 300 / 300 Lab / Micro Data Attestation: I reviewed the patient's lab results. 06/23/25 06:41 06/23/25 06:41 Micro: Microbiology 06/17/25 08:09 Swab (Method) Nasal Screen MRSA/MSSA - Final Physical Exam Const alert, oriented x3 and no apparent distress General Appearance: cooperative and well developed Resp normal respiratory effort Extremity normal capillary refill Extremity Narrative: Right hip dressing clean dry intact. There is no surrounding erythema or tenderness to periwound area Positive quad weakness with attempt to leg lift and logroll, moves leg independently in bed Bilat lower leg compartments soft, Cassandra's negative. Distal motor or sensory intact with brisk cap refill at 2 seconds Intact EHL tibialis anterior gastrocsoleus intact station to light touch General Extremity: Negative for calf tenderness Neuro moves all extremities Assessment & Plan Assessment/Plan (1) S/P total hip arthroplasty: QUALIFIERS: Laterality: right Qualified Code(s): Z96.641 - Presence of right artificial hip joint PLAN: Plan Postop day #2 right total hip arthroplasty PT OT weightbearing as tolerated Encourage out of bed and ambulation as tolerated with assistive device DVT prophylaxis started on Eliquis 2.5 mg twice daily for 3 weeks postop SCDs and AUGUSTO hose while in the hospital No further supplemental O2 needed overnight Pain control oxycodone and Tylenol DC planning to rehab once bed available. Reviewed PT, OT and social work notes from yesterday. Patient does need motivation with increased activity, out of bed, ambulation. Per social work, await insurance status for rehab placement. This document has been transcribed using [employer] dictation software. There may be incorrect words, spelling, and punctuation.
[2025-06-24 08:35] VITALS: BP 140/67; PULSE 86; RESP 16; TEMP 36.4; O2SAT 96
[2025-06-24] MEDS: Senna/Docusate Sodium 1 Tablet 2 TABLET PO (08:39)
[2025-06-24] MEDS: APIXABAN 2.5 MG TABLET (WCH) PO (08:44)
--- NOTE | 2025-06-24 09:42 | PCM.PN.HOSP ---
Objective Data Objective Data Vital Signs: Vital Signs Temp Pulse Resp BP Pulse Ox O2 Del Method O2 Flow Rate 97.5 F L 86 16 140/67 H 96 Room Air 2 06/24/25 08:35 06/24/25 08:35 06/24/25 08:35 06/24/25 08:35 06/24/25 08:35 06/24/25 08:35 06/23/25 21:58 Oxygen Flow Rate (L/min) 2 Oxygen Delivery Method Room Air Weight: 87 kg Body Mass Index (BMI) 32.9 Intake & Output: Intake and Output for Last 24 Hours 06/22/25 06/23/25 06/24/25 23:59 23:59 23:59 Intake Total 1588.25 / 1588.25 1751.5 / 1751.5 300 / 300 Output Total 700 / 700 Balance 888.25 / 888.25 1751.5 / 1751.5 300 / 300 Lab / Micro Data 06/23/25 06:41 06/23/25 06:41 Micro: Microbiology 06/17/25 08:09 Swab (Method) Nasal Screen MRSA/MSSA - Final
--- NOTE | 2025-06-24 10:19 | CASEMGMT ---
Social Work- SW called Dr Sandoval's office and backlined ROAD WORKER to advise that pt has precert and can discharge to TCU. Pt updated on precert status. Plan: TCU; skilled level of care KEMAR Nelson
--- NOTE | 2025-06-24 10:52 | CASEMGMT ---
Social Work Precert has been obtained. Physician updated and pt is ready for discharge today. SW met with pt and they are agreeable to discharge plan as stated above. SW sent discharge information to TCU. Bedside nurse notified of discharge. Disposition: TCU, skilled level of care KEMAR Nelson
--- NOTE | 2025-06-24 10:58 | PHA.DC.MR.R ---
Pharmacy [place] Med Reconciliation Pharmacy Service has performed discharge medication reconciliation for this patient. The patient's discharge medication list was reviewed for discrepancies and discrepancies were resolved. Medications at Discharge Home Medications multivitamin (Daily Multiple tablet) 1 ea PO DAILY supplement 08/22/15 handicap placard #1 ea 11/20/23 Rollator walker with brakes #1 ea 05/19/24 blood pressure monitor (Blood Pressure Kit) #1 ea 05/19/24 sertraline 100 mg tablet 100 mg PO DAILY DEPRESSION #90 tabs 02/10/25 calcium carbonate (Calcium 500) 1,000 mg PO DAILY PRN dyspepsia 02/11/25 pantoprazole 40 mg tablet,delayed release 40 mg PO DAILY GERD 02/11/25 propranolol 120 mg capsule,24 hr,extended release 120 mg PO DAILY BP #90 caps 02/23/25 omeprazole magnesium 20 mg tablet,delayed release (Prilosec OTC) 20 mg PO DAILY gerd 03/02/25 nystatin 100,000 unit/gram topical powder 1 applic topical TID ABD YEAST INFECTION #60 grams 04/19/25 aspirin 81 mg chewable tablet 81 mg PO QDAY HEART HEALTH 04/22/25 cetirizine 10 mg capsule (Zyrtec) 10 mg PO QDAY PRN ALLERGIES 04/22/25 atorvastatin 40 mg tablet 40 mg PO QHS HDL #90 tabs 04/26/25 amlodipine 5 mg tablet 10 mg (2 x 5 mg) PO DAILY BP 90 days #180 tabs 05/07/25 montelukast 10 mg tablet (Singulair) 10 mg PO QHS asthma #90 tabs 06/02/25 ramipril 5 mg capsule 5 mg PO QDAY BP #90 caps 06/02/25 acetaminophen 500 mg tablet 1,000 mg (2 x 500 mg) PO Q6H #100 tabs 06/23/25 apixaban 2.5 mg tablet (Eliquis) 2.5 mg PO BID #42 tabs 06/23/25 oxycodone 5 mg tablet 5 - 10 mg (1 - 2 x 5 mg) PO Q6H PRN pain 7 days #60 tabs 06/23/25
--- NOTE | 2025-06-24 11:39 | CASEMGMT ---
Social Work- SW observed pt to have confusion when SW went in to update on d/c. SW had met with pt earlier this morning and pt was O X 4. Pt currently O x 1. Pt reported that she needed to return to [place]. SW attempted to re-orient pt. Pt again reiterated that pt needs to return to [place]. SW asked pt to clarify. Pt anxiously reported that Jude needed to meet her and she needed to return to [place] to the hospital. SW reassured pt that she was in [facility]. Pt was very flustered and apologized reporting that she just needs to return to [place] to meet her POA. SW asked pt if SW can call POA while in room. Pt attempted to call; no answer. SW provided support and reassurance that SW would speak with POA and that pt was at [facility] and would remain. SW verified permission to call friend Milagro as well; pt agreeable. SW updated bedside nurse on confusion and concerns of mental status change. ALIDA called pt POA and left a voicemail affirming that pt was at [facility] and updated on plans for discharge to TCU. ALIDA called friend Milagro and updated on discharge plans as well. Milagro reports that pt called Jude a little bit ago telling him that she has "no idea where I am" and "they came and got me and took me to a therapist's house". Milagro brought up pt history of stroke and reports that she spoke with [facility] staff regarding concerns. ALIDA again spoke with bedside nurse regarding pt friend concerns. Bedside nurse to follow up with hospitalist. ALIDA met with pt Jude RODRIGUEZ/Adriana when he came into hospital. ALIDA updated on discharge plans. Jude expressed concern regarding confusion and reports that he spoke with therapy staff in room. ALIDA provided warm hand-off to TCU SW. Plan: TCU; skilled level of care KEMAR Nelson
--- NOTE | 2025-06-24 11:46 | NURSING ---
ALIDA Brandt notified this nurse that pt was experiencing confusion. This nurse assessed and found pt A & O x3. aware, states OK for transfer.
--- NOTE | 2025-06-24 13:03 | NURSING ---
Nurse to nurse report given to Shama on TCU. OK to send anytime.
== END 2025-06-24 13:50 | DRG 470 ==
PROVIDERS: Admitting Provider Orthopaedic Surgery; PCP Physician Assistant; Referring Provider Orthopaedic Surgery; Visit Provider Orthopaedic Surgery
PROC: 8E0Y0CZ Robotic Assisted Procedure of Lower Extremity, Open Approach (ICD-10-PCS; CPT 27130; principal; 2025-06-22 10:45)
DX: M16.11 Unilateral primary osteoarthritis, right hip (principal); I69.351 Hemiplegia and hemiparesis following cerebral infarction affecting right dominant side; F31.9 Bipolar disorder, unspecified; I10 Essential (primary) hypertension; E78.00 Pure hypercholesterolemia, unspecified; K21.9 Gastro-esophageal reflux disease without esophagitis; G47.30 Sleep apnea, unspecified; M79.2 Neuralgia and neuritis, unspecified; M79.89 Other specified soft tissue disorders; F41.9 Anxiety disorder, unspecified; M51.360 Other intervertebral disc degeneration, lumbar region with discogenic back pain only; Z90.710 Acquired absence of both cervix and uterus; Z79.1 Long term (current) use of non-steroidal anti-inflammatories (NSAID); Z79.01 Long term (current) use of anticoagulants; G89.29 Other chronic pain; Z99.89 Dependence on other enabling machines and devices
CPT/HCPCS: 36415; 73502; 80048; 82962; 82985; 83036; 83735; 85025; 85610; 85730; 86850; 86900; 86901; 87081; 88304; 88311; 93005; 94668; 97116; 97162; 97166; 97530; 97535; C1776; A4216; J3475

== ENCOUNTER 2025-06-24 14:11 | Inpatient (IN) | payer MEDICARE, MEDICAID, SELFPAY ==
[2025-06-24 14:27] VITALS: BP 133/61; PULSE 88; RESP 18; TEMP 37.4; O2SAT 95; BMI 32.8
--- NOTE | 2025-06-24 15:22 | NURSING ---
sonya, bed & chair alarm placed on pt. pt wanting to go home since arriving to unit. cognition impaired.
--- NOTE | 2025-06-24 15:31 | CASEMGMT ---
Addendum entered by Theodora Cook 06/25/25 08:23: SW received return call from Dr. Morales's nurse 06/24/25 at approx. 1640. Nurse could not provide details to this worker without ROR and pt not cognitively intact to give permission to speak with this worker. Nurse was able to confirm pt's correct medication regimen with Zoloft at 100 mg to ensure there was not a delay in care for the pt. SW updated nursing and left ROR for HCPOA to sign at next visit to obtain additional information from office. Addendum entered by Theodora Cook 06/24/25 16:31: Pt attempted to get out of bed and SW presented to room with nurse's. Nurse asked pt what she was trying to do and pt replied, I was trying to make toast. Nurse educated pt will receive dinner in about an hour. Pt replied, I was just trying to figure out why my stove wasn't working. Nurse reoriented pt that she was in [facility] TCU. SW intervened and asked pt why type of music she liked to listen to. Pt requested Anabaptism music. Nursing helped assist pt to recliner and moved pt into [facility] by nurse's station. SW put on Anabaptism music for pt's enjoyment. Original Note: Social Work Pt admitted to unit and SW was immediately notified that pt was wanting to leave. SW completed chart review prior to pt's admission and was familiar with pt's reason for admission. - SW presented to pts room. Charge Nurse remained at bedside for beginning of conversation with this worker. Pt's thoughts were sporadic and had no flow. SW began with active listening with silence, commenting as appropriate. Patient shared her history: she has been in two psych placements, the latest was 2000. Pt reported the first stay I just slept; the second stay was successful. Pt reported to being prescribed Zoloft, which was confirmed by her MR, and pt states it took 5 years to get the right medication. Pt has been involved with several psychiatrists, but could not recall the name or agency in which she receives services currently. Pt confirms she does receive counseling as well. No other medication noted for pt's dx of Bipolar 1 Disorder. SW to contact family to obtain that information. Pt shared a story of a time her counselor recommended pt writing letters and burying them, which pt completed and buried under [place], reporting that was therapeutic with her feelings. SW inquired to pt if there was any family history of suicide. Pt reported her brother's by suicide (unknown time) d/t her kids not being the perfect kids [the ] wanted them to be. Pt began discussing God's role with suicide. SW asked pt her viewpoint on suicide. Pt responded, that God is in control and if God wants me [to ] then he will take me. SW inquired pt had any attempts of suicide. Pt denied, but then shared a story of one morning she woke up with the intent of dying by suicide, but then I gave it another thought, went to sleep, and when I woke up, God had spoken to me and he will take me when he wants me. SW questioned what pt's plan was that morning. Pt did not provide specifics. SW gave example of taking pills or shooting herself with a gun. Pt denied stating she had not thought that far. SW continued with conversation and asked if pt had any children. Pt has one son, Jude, named after his father. Pt was recently (pt was on RU for her stroke in April 2022 and was still ). SW asked if pt had a relationship with her son, and pt replied, he is in [facility]. SW explored further. Pt shared that she and her son do talk on the phone weekly, and her ex- visits son frequently. Pt shared her son attempted to blow up his [employer] car, but didn't, only put stuff in it, messed it up, got caught, and he tried to kill himself. He took a knife and sliced from his throat to his gallbladder. SW explored pt's feelings. Pt stated she told her ex- that and that is when son and father reconnected. Pt reports her ex- and her are best friends, have reconnected, and would not do anything to jeopardize his current . 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 SW redirected to goals for pt while on TCU. Pt stated she wants to be able to walk again, walk in [employer] [place]. Pt states she has goals after DC to return to [facility] and volunteer at [employer]. ALIDA proceeded with admission assessment questions and obtained contacts. Updated in [employer]. Advance directives are on file and ex- uJde is HCPOA. SW completed BIMS and pt score 8/15. Immediately after, pt stated, okay I just need to go and see what is going on at home. SW reminded pt of hip surgery and previously discussed goals for therapy and regaining strength/independence to return home. SW explained this worker will assist with DC planning once that time comes. Pt repeated, yeah, I need to go home. SW asked pt to repeat this worker's answer. Pt could not. SW asked if she wanted to listen to music, watch TV, need food or drink. Pt denied. - SW reported to Charge Nurse. Bed and chair alarms and wanderguard to be placed. Written communication left for Dr. Guerrero to assess. Acute SW hand off reports pt's quick decline in cognition and pt's ex- concerned about mentation this date, which was reported to hospitalist and pt remained cleared to admit to TCU. - ALIDA obtained Jude's contact information from [facility] and updated in [employer]. ALIDA phoned Jude and inquired about visits with pt. Jude stated he received a call from [facility] about 1130 this morning and pt was confused and disoriented. Jude visited her shortly after and confusion continued. ALIDA inquired about psych information but Jude unaware. ALIDA phoned friend, Blanca, as Blanca sometimes takes pts to appts. Blanca reports pt sees Dr. Morales's CARD PUNCHING MACHINE OPERATOR every 6 mos, and thinks pt goes to a counseling center on [facility] , which [facility], but the friend reported she had switched providers. Blanca also reported that pt's mentation changed from 0900 to 1100 this date and inquired about UTI or mini stroke. ALIDA educated Dr. Guerrero will assess pt during rounds this evening, and appreciative of information. - ALIDA left VM with Dr. Morales's office to gather further information. ALIDA will continue to follow. Theodora Cook INFECTION CONTROL NURSE WORK CHECKER
[2025-06-24 16:51] LABS: Mucous, Urine 0 SEEN /hpf (<or=2+); Red Blood Cells-Urine 0 SEEN /hpf (0-5); Squamous Epithelial Cells - UA 0 SEEN /hpf (5-10)
[2025-06-24 16:55] LABS: Color, Urine Yellow (Yellow); Glucose, Dipstick 50 mg/dl (Normal); Ketone-Dipstick Negative (Negative); Leukocyte Esterase-Dipstick Negative /ul (Negative); Nitrite-Dipstick Negative (Negative); Occult Blood-Urine Negative /ul (Negative); Protein-Dipstick 15 mg/dl (Negative); Specific Gravity, Urine 1.015 (1.002-1.030); Urine Bilirubin Dipstick Negative (Negative)
--- NOTE | 2025-06-24 17:01 | NURSING ---
pt attempting to get OOB to make toast, attempted to reorient pt several times on place & pt believes staff is lying to her about being in hospital. odor noted, pt incont of small amt of urine. Urine obtained via st cath. alarms in place and functioning appropriately. call light in reach. attempted to get pt OOB to chair & pt screamed in pain yelling i can't it hurts rubbing her rt leg.
--- NOTE | 2025-06-24 17:35 | RAD_ITS ---
PROCEDURE: RAD/HIP, UNI W/ Pelvis 2-3 Views
[2025-06-24 19:18] LABS: Hematocrit 28.6 % (37-47); Hemoglobin 9.1 g/dL (12.0-15.0); Immature Granulocytes Count 0.030 X10^3/uL (0.0-0.0); Mean Corp Hgb Conc 31.8 g/dL (32-36); Mean Corpuscular Volume 86.9 fL (81-99); Mean Platelet Vol. 10.6 fl (6.2-12.0); NRBC Flagged by Analyzer 0 % (0-5); Platelet Count 189 K/mm3 (150-450); RBC Distribution Width CV 14.1 % (11.6-14.6); RBC Distribution Width SD 45.0 fl (35.1-43.9); Red Blood Count 3.29 M/mm3 (4.2-5.4); White Blood Count 8.9 K/mm3 (4.4-11.0)
[2025-06-24 19:51] LABS: Anion Gap 9 (5-15); BUN 14 mg/dL (4-19); BUN/Creat Ratio 19.3 RATIO (10-20); Calcium,Total 9.2 mg/dL (7.6-11.0); Carbon Dioxide 25.2 mmol/L (21.0-32.0); Chloride 103 mmol/L (98-108); Estimated Creatinine Clearance 66.71 ml/min (50-250); Glucose 155 mg/dL (70-99); Potassium 4.1 mmol/L (3.3-5.1)
--- NOTE | 2025-06-24 20:39 | PCM.HP.STD ---
HPI - General General Date of Admission: 06/24/25 Date of Service: 06/24/25 Chief Complaint: Here for rehabilitation. HPI Narrative FLOR MEDINA, is a 75 F who presents with followin06/22/2025 Admit [facility]. 06/22/2025 Dr. Blanchard performed right total hip arthroplasty. 06/22/2025 Aspirin for history of stroke. PT/OT/CM. 06/23/2025 Pain controlled, mild nausea. PT/OT, WBAT. SCDs, AUGUSTO hose, Eliquis 2.5mg bid x 3 weeks for DVT prophylaxis. Oxygen 2 liters per nasal cannula. Tylenol, Oxycodone for pain. Plan SNF on discharge. 06/24/2025 PT/OT TCU. 06/24/2025 Admit to TCU with debility, here for rehabilitation, strengthening, prior to discharge home alone. Patient confused upon arrival. Hemoglobin 9.1, slightly lower to be expected with surgery. BMP okay, UA negative for UTI. CT head no contrast pending insurance approval. Encephalopathy possibly from narcotic pain medications, monitor closely. [facility] Medical History (Updated 06/24/25 @ 20:[address] Mick Guerrero MD) Carpal tunnel syndrome of right wrist Yeast infection Tinea corporis URI (upper respiratory infection) Post-menopausal Walker as ambulation aid Anemia Dietary restriction Constipation Asthma History of pain when walking History of edema Family history of colon cancer in mother Hx of bladder problems Wears glasses Bipolar disorder Arthritis Bladder disease High cholesterol Gastric reflux Non-smoker CPAP (continuous positive airway pressure) dependence History of echocardiogram History of stress test Stroke/cerebrovascular accident Hx of migraines Radicular pain in left arm Obesity (BMI 30.0-34.9) Depression Bipolar 1 disorder Hypertension Home Medications ?Medication ?Instructions ?Recorded ?Last Taken ?Type multivitamin (Daily Multiple 1 ea PO DAILY supplement 08/22/15 06/20/25 History tablet) handicap placard #1 ea 11/20/23 Unknown Rx Rollator walker with brakes #1 ea 05/19/24 Unknown Rx blood pressure monitor (Blood #1 ea 05/19/24 Unknown Rx Pressure Kit) sertraline 100 mg tablet 100 mg PO DAILY DEPRESSION #90 tabs 02/10/25 06/21/25 Rx calcium carbonate (Calcium 500) 1,000 mg PO DAILY PRN dyspepsia 02/11/25 02/28/25 History pantoprazole 40 mg tablet,delayed 40 mg PO DAILY GERD 02/11/25 06/21/25 History release propranolol 120 mg capsule,24 120 mg PO DAILY BP #90 caps 02/23/25 06/21/25 Rx hr,extended release omeprazole magnesium 20 mg 20 mg PO DAILY gerd 03/02/25 06/21/25 History tablet,delayed release (Prilosec OTC) nystatin 100,000 unit/gram topical 1 applic topical TID ABD YEAST 04/19/25 06/21/25 Rx powder INFECTION #60 grams aspirin 81 mg chewable tablet 81 mg PO QDAY HEART HEALTH 04/22/25 06/15/25 History cetirizine 10 mg capsule (Zyrtec) 10 mg PO QDAY PRN ALLERGIES 04/22/25 Unknown History atorvastatin 40 mg tablet 40 mg PO QHS HDL #90 tabs 04/26/25 06/21/25 Rx amlodipine 5 mg tablet 10 mg (2 x 5 mg) PO DAILY BP 90 05/07/25 06/21/25 Rx days #180 tabs montelukast 10 mg tablet 10 mg PO QHS asthma #90 tabs 06/02/25 06/22/25 Rx (Singulair) ramipril 5 mg capsule 5 mg PO QDAY BP #90 caps 06/02/25 06/21/25 Rx acetaminophen 500 mg tablet 1,000 mg (2 x 500 mg) PO Q6H pain 06/23/25 Unknown Rx #100 tabs apixaban 2.5 mg tablet (Eliquis) 2.5 mg PO BID blood thinner #42 06/23/25 Unknown Rx tabs oxycodone 5 mg tablet 5 - 10 mg (1 - 2 x 5 mg) PO Q6H 06/23/25 Unknown Rx PRN pain 7 days #60 tabs Allergy/AdvReac Type Severity Reaction Status Date / Time codeine Allergy Other Verified 06/22/25 09:59 Penicillins Allergy Itching Verified 06/22/25 09:59 Awrquva-LUI-HqW Reductase Allergy Unknown Verified 06/22/25 09:59 Inhibitor ([place]-Ttq-Lgp Reductase Inhibitor) Sulfa (Sulfonamide Allergy Itching Verified 06/22/25 09:59 Antibiotics) Family History Mother Colon cancer CAD (coronary artery disease) Angina at rest Breast cancer Cervical cancer Depression Hypertension Grandmother Diabetes Maternal grandmother CAD (coronary artery disease) Arthritis Heart disease Grandfather CAD (coronary artery disease) Bleeding disorder Father CAD (coronary artery disease) Hypertension Surgical History (Updated 06/24/25 @ 20:[address] 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 sexually active: No Smoking Status: Never smoker Electronic Cigarette Use: not used alcohol intake: never substance use type: does not use what type of physical activity do you participate in: none seatbelt use: always do you feel safe at home: Yes ROS Constitutional Constitutional: Reports weakness; Denies chills, fever(s) or weight gain ENT HEENT: Denies headache(s), nasal congestion or nasal discharge Cardiovascular Cardiovascular: Denies chest pain or palpitations Respiratory/Chest Respiratory/Chest: Denies cough, excessive phlegm production or shortness of breath with exertion Gastrointestinal Gastrointestinal: Denies abdominal pain, nausea or vomiting Genitourinary Genitourinary: Denies dysuria Musculoskeletal Musculoskeletal: Denies joint pain or joint swelling Integumentary Integumentary: Denies rash or wounds Neurologic Neurologic: Denies focal weakness, numbness or tingling Psychiatric Psychiatric: Denies anxiety, auditory hallucinations, depression, homicidal ideation or suicidal ideation Vital Signs Vital Signs Vital Signs: 06/24/25 14:27 06/24/25 15:22 Temperature 99.4 F H Temperature Source Temporal Pulse Rate 88 Pulse Rhythm Regular Pulse Strength Normal (2+) Respiratory Rate 18 Respiratory Effort Normal Non-Labored Respiratory Depth Normal Respiratory Pattern Normal Blood Pressure 133/61 H Blood Pressure Mean 85 Blood Pressure Source Monitor Blood Pressure Position Semi-Fowlers Blood Pressure Location Right Arm Pulse Ox 95 Oxygen Delivery Method Room Air Room Air Weight Weight: 86.636 kg Body Mass Index (BMI) 32.8 Physical Exam Const alert General Appearance: cooperative HEENT normocephalic Eyes PERRL and EOMs intact bilaterally Neck supple, no JVD and no carotid bruits Resp normal respiratory effort, normal air movement and clear to auscultation bilaterally Cardio regular rate and regular rhythm GI normal to inspection, nondistended, normoactive bowel sounds, non-tender and non-distended Extremity normal capillary refill General Extremity: Negative for edema Skin no rashes or lesions noted General Skin Exam: no breakdown Psych affect normal Appearance: appropriate Results Lab / Micro Data 06/24/25 18:56 06/24/25 18:56 Labs: Laboratory Results - last 24 hr 06/24/25 16:40: Urine Color Yellow, Urine Clarity Clear, Urine pH 6.0, Ur Specific [place] 1.015, Urine Protein 15 H, Urine Glucose (UA) 50 H, Urine Ketones Negative, Urine Occult Blood Negative, Urine Nitrite Negative, Urine Bilirubin Negative, Urine Urobilinogen Normal, Ur Leukocyte Esterase Negative, Urine RBC 0 SEEN, Urine WBC 0-5 SEEN, Ur Squamous Epith Cells 0 SEEN, Urine Bacteria 0 SEEN, Urine Mucus 0 SEEN 06/24/25 18:56: WBC 8.9, RBC 3.29 L, Hgb 9.1 L, Hct 28.6 L, MCV 86.9, MCH 27.7, MCHC 31.8 L, RDW Std Deviation 45.0 H, RDW Coeff of [place] 14.1, Plt Count 189, MPV 10.6, Immature Gran % (Auto) 0.300, Neut % (Auto) 64.2, Lymph % (Auto) 23.3, [place] % (Auto) 10.8 H, Eos % (Auto) 1.2, Baso % (Auto) 0.2, Absolute Neuts (auto) 5.7, Absolute Lymphs (auto) 2.06, Nucleated RBC % 0, Sodium 137, Potassium 4.1, Chloride 103, Carbon Dioxide 25.2, Anion Gap 9, BUN 14, Creatinine 0.71, Estim Creat Clear Calc 66.71, Est GFR (MDRD) Non-Af 90, BUN/Creatinine Ratio 19.3, Glucose 155 H, Calcium 9.2 Assessment & Plan Assessment/Plan (1) Debility: (2) S/P total right hip arthroplasty: (3) Encephalopathy: (4) GERD (gastroesophageal reflux disease): QUALIFIERS: Esophagitis presence: esophagitis presence not specified Qualified Code(s): K21.9 - Gastro-esophageal reflux disease without esophagitis (5) Essential hypertension: (6) HLD (hyperlipidemia): (7) Asthma: (8) JANE (obstructive sleep apnea): (9) Stroke/cerebrovascular accident: PLAN: Plan 75 year old female with below past medical history underwent right total hip arthroplasty 06/22/[address] Blanchard, postoperative course complicated by encephalopathy, admitted to TCU with debility, here for rehabililtation, strengthening, prior to discharge home alone. Debility - PT/OT. Pain - Tylenol 1000mg q6, Oxycodone 5mg po q4 prn pain (1-10). Bowel - senna/colace 2 tablets bid, Magnesium citrate 300mL daily prn. Adult immunization - Administer pneumonia vaccine, covid vaccine, flu vaccine as appropriate. DVT prophylaxis - Eliquis 2.5mg bid thru 07/15/2025. Hypertension - Propranolol 120mg daily, Ramipril 5mg daily, Amlodipine 10mg daily. Stroke - Aspirin 81mg daily starting 07/16/2025. Hyperlipidemia - Atorvastatin 40mg qhs. Indigestion - Calcium 1000mg daily. Allergic rhinitis - Loratadine 10mg qhs prn. Skin irritation - Calmoseptine topical bid, Aquaphor topical qhs. Tinea Corporis - Nystatin topical tid. Asthma - Singulair 10mg qhs. Nutrition - MVI 1 tablet daily. GERD - Pantoprazole 40mg daily. The following psychotropic medication was present on admission: Sertraline 100mg daily. Psychotropic medication therapy is indicated for a diagnosis of: Major Depression. Based on my clinical evaluation, continuation of the medication is necessary at this time. Gradual dose reduction plan (select one): ____ GDR will be attempted. Will monitor patient symptoms and behaviors in response to GDR. __x__ GRD contraindicated. Reason contraindicated: stable chronic intermediate use.
--- NOTE | 2025-06-24 20:43 | NURSING ---
Patient left floor for xrays via bed and x2 assist.
--- NOTE | 2025-06-24 20:50 | RAD_ITS ---
PROCEDURE: RAD/Chest PA and Lateral
--- NOTE | 2025-06-24 21:00 | NURSING ---
Patient returned to floor from xray.
[2025-06-24] MEDS: Mineral Oil/Petrolatum Cr 1.75oz Bottle 1 APPLIC TOPICAL (22:48)
[2025-06-24] MEDS: APIXABAN 2.5 MG TABLET (WCH) PO (22:51)
[2025-06-24] MEDS: Senna/Docusate Sodium 1 Tablet 2 TABLET PO (22:53)
[2025-06-24 23:00] VITALS: PULSE 79; O2SAT 95
[2025-06-25 06:10] LABS: Hematocrit 26.7 % (37-47); Hemoglobin 8.7 g/dL (12.0-15.0); Immature Granulocytes Count 0.030 X10^3/uL (0.0-0.0); Mean Corp Hgb Conc 32.6 g/dL (32-36); Mean Corpuscular Volume 86.4 fL (81-99); Mean Platelet Vol. 10.8 fl (6.2-12.0); NRBC Flagged by Analyzer 0 % (0-5); Platelet Count 180 K/mm3 (150-450); RBC Distribution Width CV 14.2 % (11.6-14.6); RBC Distribution Width SD 44.6 fl (35.1-43.9); Red Blood Count 3.09 M/mm3 (4.2-5.4); White Blood Count 7.5 K/mm3 (4.4-11.0)
[2025-06-25 07:01] LABS: Anion Gap 8 (5-15); BUN 14 mg/dL (4-19); BUN/Creat Ratio 24.1 RATIO (10-20); Calcium,Total 9.0 mg/dL (7.6-11.0); Carbon Dioxide 25.2 mmol/L (21.0-32.0); Chloride 106 mmol/L (98-108); Estimated Creatinine Clearance 66.71 ml/min (50-250); Glucose 131 mg/dL (70-99); Potassium 4.2 mmol/L (3.3-5.1)
[2025-06-25 07:38] VITALS: O2SAT 98
--- NOTE | 2025-06-25 09:05 | NURSING ---
Called for auth for CT scan. No auth needed for this CPT code. Order faxed to CT.
[2025-06-25 10:00] VITALS: PULSE 76
[2025-06-25 10:28] VITALS: BP 123/65; PULSE 76; RESP 18; TEMP 36.4; O2SAT 97
[2025-06-25] MEDS: Senna/Docusate Sodium 1 Tablet 2 TABLET PO ×2 (10:31→21:03)
[2025-06-25] MEDS: Tuberculin,Purif.prot.deriv. 50 TU/ML Vial 0.1 ML ID (10:31)
[2025-06-25] MEDS: APIXABAN 2.5 MG TABLET (WCH) PO ×2 (10:32→21:04)
--- NOTE | 2025-06-25 12:14 | NURSING ---
Sugar Cane Planter Note; Activity Asset: Dawn Silva is independent in her choice of daily activities. She has her smartphone, watches tv, read, has friends visits, welcomes the carbon paper coating machine setter and therapy dog as well. she asked for word search puzzles and was informed of the dinning room and sitting area for her use. Staff will encourages social activities, remind her of weekly activities and respect her right to say no.
--- NOTE | 2025-06-25 15:19 | PCM.PN.DRR ---
Documented by User: Geremias Rodriguez 06/25/25 15:35 TCU RX Drug Regimen Review Subjective/Objective Subjective/Objective Subjective: TCU admission note. 75 year old female with below past medical history underwent right total hip arthroplasty 06/22/[address] Blanchard, postoperative course complicated by encephalopathy, admitted to TCU with debility, here for rehabililtation, strengthening, prior to discharge home alone. Objective: Allergies codeine Allergy (Verified 06/22/25 09:59) Other Penicillins Allergy (Verified 06/22/25 09:59) Itching Ykrtumr-TSU-AvM Reductase Inhibitor (Xuizwct-Isx-Tnw Reductase Inhibitor) Allergy (Verified 06/22/25 09:59) Unknown Sulfa (Sulfonamide Antibiotics) Allergy (Verified 06/22/25 09:59) Itching Current Medications Generic Name Dose Route Start Last Admin Trade Name Freq PRN Reason Stop Dose Admin Acetaminophen 1,000 mg 06/24/25 18:00 06/25/25 13:13 Acetaminophen 500 Mg Tablet PO 1,000 mg Q6 SAMIR Administration Amlodipine Besylate 10 mg 06/25/25 10:00 06/25/25 10:32 Amlodipine 10 Mg Tablet PO 10 mg DAILY SAMIR Administration Protocol Apixaban 2.5 mg 06/24/25 22:00 06/25/25 10:32 Apixaban 2.5 Mg Tablet ([facility]) PO 07/15/25 10:01 2.5 mg BID SAMIR Administration Aspirin 81 mg 07/16/25 08:00 Aspirin 81 Mg Tab.Chew PO BREAKFAST SAMIR Atorvastatin Calcium 40 mg 06/24/25 22:00 06/24/25 22:52 Atorvastatin Calcium 40 Mg Tablet PO 40 mg QHS SAMIR Administration Calamine/Phenol 1 applic 06/24/25 22:00 06/25/25 10:35 Menthol/Lanolin/Calamine/Znox 113 Gm Tube TOPICAL 1 applic BID SAMIR Administration Protocol Calcium Carbonate 1,000 mg 06/24/25 14:28 Calcium Carbonate 500 Mg Tablet PO DAILY PRN dyspepsia Loratadine 10 mg 06/25/25 10:00 Loratadine 10 Mg Tablet PO DAILY PRN ALLERGIES Magnesium Citrate 300 ml 06/24/25 20:51 Magnesium Citrate 300 Ml PO DAILY PRN Constipation Montelukast Sodium 10 mg 06/24/25 22:00 06/24/25 22:52 Montelukast 10 Mg Tablet PO 10 mg QHS SAMIR Administration Multi-Ingredient Ointment 1 applic 06/24/25 22:00 06/24/25 22:48 Mineral Oil/Petrolatum Cr 1.75oz Bottle TOPICAL 1 applic QHS SAMIR Administration Protocol Multivitamins 1 tablet 06/25/25 08:00 06/25/25 10:31 Multivitamins,Therapeutic Tablet PO 1 tablet DAILYCM SAMIR Administration Nystatin 1 applic 06/24/25 22:00 06/25/25 13:13 Nystatin Powder 15gm Bottle TOPICAL 1 applic TID SAMIR Administration Protocol Oxycodone HCl 5 mg 06/24/25 20:52 06/25/25 00:49 Oxycodone 5 Mg Tablet PO 5 mg Q4H PRN PRN Administration Pain Score 1-10 Pantoprazole Sodium 40 mg 06/25/25 10:00 06/25/25 10:32 Pantoprazole Sodium 40 Mg Tablet PO 40 mg DAILY SAMIR Administration Propranolol HCl 120 mg 06/25/25 10:00 06/25/25 10:32 Propranolol La 60 Mg Capsule PO 120 mg DAILY SAMIR Administration Ramipril 5 mg 06/25/25 10:00 06/25/25 10:31 Ramipril 5 Mg Capsule PO 5 mg DAILY SAMIR Administration Protocol Senna/Docusate Sodium 2 tablet 06/24/25 22:00 06/25/25 10:31 Senna/Docusate Sodium 1 Tablet PO 2 tablet BID SAMIR Administration Sertraline HCl 100 mg 06/25/25 10:00 06/25/25 10:32 Sertraline 100 Mg Tablet PO 100 mg DAILY SAMIR Administration Tuberculin PPD 0.1 ml 07/02/25 10:00 Tuberculin,Purif.Prot.Deriv. 50 Tu/Ml Vial ID 07/02/25 10:01 X1 ONE Problem List Stroke/cerebrovascular accident (Acute) Asthma (Acute) Encephalopathy (Acute) S/P total right hip arthroplasty (Acute) Debility (Acute) Essential hypertension (Acute) JANE (obstructive sleep apnea) (Acute) GERD (gastroesophageal reflux disease) (Acute) Vital Signs Temp Pulse Resp BP Pulse Ox O2 Del Method O2 Flow Rate 97.5 F L 76 18 123/65 H 97 Room Air 2 06/25/25 10:06/25/25 10:28 06/25/25 10:06/25/25 10:28 06/25/25 10:28 06/25/25 10:28 06/25/25 07:38 Oxygen Flow Rate (L/min) 2 Oxygen Delivery Method Room Air Weight: 86.636 kg Body Mass Index (BMI) 32.8 Sodium 139 mmol/L (133-145) 06/25/25 05:40 Potassium 4.2 mmol/L (3.3-5.1) 06/25/25 05:40 Chloride 106 mmol/L (98-108) 06/25/25 05:40 Carbon Dioxide 25.2 mmol/L (21.0-32.0) 06/25/25 05:40 Anion Gap 8 (5-15) 06/25/25 05:40 BUN 14 mg/dL (4-19) 06/25/25 05:40 Creatinine 0.57 mg/dL (0.70-1.20) L 06/25/25 05:40 Est GFR (MDRD) Non-Af 96 (>60) 06/25/25 05:40 BUN/Creatinine Ratio 24.1 RATIO (10-20) H 06/25/25 05:40 Glucose 131 mg/dL (70-99) H 06/25/25 05:40 Assessment/Plan: 1. Acetaminophen 1000 mg PO Q6H, oxycodone 5 mg PO Q4H PRN pain (1-10). The patient has used x1 PRN dose of oxycodone 5 mg so far this admission. Please continue to monitor pain levels, for PRN medication usage, LFTs (no recent LFTs documented), for constipation, respiratory depression, dizziness/drowsiness, and for syncope/ataxia/falls. 2. Bowel: senna/docusate 2 tablets Po BID, magnesium citrate 300 mL PO daily PRN constipation. The patient has not required any PRN doses of magnesium citrate so far this admission, and the patient does not have a bowel movement documented yet this admission. Please continue to monitor for bowel movements, for PRN medication usage, as well as for constipation and diarrhea. 3. DVT prophylaxis: apixaban 2.5 mg PO BID through 07/15/25. Please continue to monitor for s/s of a DVT such as pain/erythema/edema in an extremity, as well as for s/s of bleeding/excessive bruising, hemoglobin levels (Hgb = 8.7 g/dL on 06/25/25), and platelet counts (Plt = 180 K/mm3 on 06/25/25). 4. Hypertension: amlodipine 10 mg PO daily, propranolol 40 mg PO daily, ramipril 5 mg Po daily. Please continue to monitor blood pressures (recent range = 123-156/49-70 mmHg), heart rates (recent range = 76-100 beats/min), for lower extremity edema, for fatigue, renal function (serum creatinine = 0.57 mg/dL with creatinine clearance ~ 67 mL/min on 06/25/25), potassium levels (K = 4.2 mmol/L on 06/25/25), sodium levels (Na = 139 mmol/L on 06/25/25), for cough, and angioedema. 5. Stroke: aspirin 81 mg PO daily starting 07/16/25. Please continue to monitor for s/s of stroke, and for GI distress. 6. Hyperlipidemia: atorvastatin 40 mg PO QHS. Please continue to monitor lipid levels (cholesterol = 192 mg/dL with LDL = 101 mg/dL on 08/19/24), for myalgias, and LFTs (no recent LFTs documented). 7. GERD: pantoprazole 40 mg PO daily. Please continue to monitor for s/s of GERD, for diarrhea that could indicate clostridium difficile infection, and for s/s of bone resorption issues such as fractures. 8. Asthma: montelukast 10 mg PO QHS. Please continue to monitor for s/s of an asthma exacerbation such as increased cough and shortness of breath. 9. Allergic rhinitis: loratadine 10 mg PO QHS PRN allergies. The patient has not required any PRN doses of loratadine so far this admission. Please continue to monitor for PRN medication usage, renal function (serum creatinine = 0.57 mg/dL with creatinine clearance ~ 67 mL/min on 06/25/25), and for dry mouth, dry eyes, and urinary retention with loratadine administration. 10. Indigestion: calcium carbonate 1000 mg PO daily PRN dyspepsia. The patient has not required any PRN doses of calcium carbonate so far this admission. Please continue to monitor for indigestion and for PRN medication administration. 11. Nutrition: multivitamin PO daily. Please continue to monitor overall nutritional status. 12. Skin irritation/tinea corporis: calmoseptine 1 application topically BID, aquaphor 1 application topically QHS, nystatin powder 1 application topically TID. Please continue to monitor for resolution of tinea corporis as well as for skin irritation/integrity. Assessment/Plan for indications treated with psychotropic medications: 1. Major Depression: sertraline 100 mg PO daily. Please see provider note regarding stable chronic long-term use GDR not recommended. Monitor for efficacy including resident symptoms, behaviors and indications of distress. Monitor for depression and for SI. Monitor for tolerability including mental status, cognition, excessive sleepiness, withdrawal or decreased participation in activities and decline in physical functioning. Maximize use of nonpharmacologic/behavioral interventions to facilitate dose reduction or discontinuation as appropriate. Please evaluate the appropriateness of GDR unless contraindicated. If appropriate, GDR should be attempted in 2 separate quarters within the first year of use or admission to TCU. If GDR attempted, monitor resident symptoms/behaviors. Monitor for diarrhea, nausea, headache, anxiety or drowsiness, suicidal thoughts or behaviors (Boxed Warning), symptoms of bleeding, symptoms of serotonin syndrome (including agitation, confusion, hyperreflexia, rigidity/myoclonus, tremor, tachycardia, tachypnea), sodium levels (last Na = 139 mmol/L on 06/25/25). Medical chart and medication regimen reviewed. The following medication irregularities or issues were identified: No recommendations for resident at this time. Date Date of Note: 06/25/25 Documented by User: Dr. Mick Guerrero MD 06/25/25 20:00 TCU RX Drug Regimen Review Provider Comments Provider responsibility Provider Comments to Recommendations by Pharmacy Agree
[2025-06-25] MEDS: Mineral Oil/Petrolatum Cr 1.75oz Bottle 1 APPLIC TOPICAL (21:03)
[2025-06-25 23:34] VITALS: PULSE 84; O2SAT 95
[2025-06-26 00:19] VITALS: PULSE 84; O2SAT 95
[2025-06-26 06:55] LABS: Hematocrit 28.5 % (37-47); Hemoglobin 8.8 g/dL (12.0-15.0)
[2025-06-26 07:41] VITALS: O2SAT 94
[2025-06-26 09:31] VITALS: BP 133/69; PULSE 77; RESP 16; TEMP 36.6; O2SAT 100
[2025-06-26] MEDS: APIXABAN 2.5 MG TABLET (WCH) PO ×2 (09:34→21:58)
[2025-06-26] MEDS: Senna/Docusate Sodium 1 Tablet 2 TABLET PO ×2 (09:37→21:59)
--- NOTE | 2025-06-26 16:41 | NURSING ---
Patient requesting sleep aid. Patient having seasonal allergies requesting scheduled Claritin and asking for cough medication for dry cough. Call placed to Dr. Guerrero, new orders for Melatonin 10mg at bedtime, schedule Claritin daily, and add PRN Robitussin 10mg PRN Q6H. VORB.
--- NOTE | 2025-06-26 19:37 | NURSING ---
Notified Dr. Guerrero via secure text message of order for Tylenol 1000 mg PO q6H. Pt reports not getting enough rest at night. New order for Tylenol 1000 mg Q8H to promote circadian rhythm support. Order verified via secure text message.
[2025-06-26] MEDS: Mineral Oil/Petrolatum Cr 1.75oz Bottle 1 APPLIC TOPICAL (21:58)
[2025-06-26] MEDS: MELATONIN 10 MG TABLET PO (21:58)
[2025-06-27 05:19] VITALS: BP 149/63; PULSE 76; O2SAT 98
[2025-06-27 10:00] VITALS: BP 150/72; PULSE 84; RESP 17; TEMP 36.4; O2SAT 97
[2025-06-27] MEDS: APIXABAN 2.5 MG TABLET (WCH) PO ×2 (10:06→21:09)
[2025-06-27] MEDS: Senna/Docusate Sodium 1 Tablet 2 TABLET PO ×2 (10:07→21:05)
[2025-06-27] MEDS: Mineral Oil/Petrolatum Cr 1.75oz Bottle 1 APPLIC TOPICAL (21:07)
[2025-06-27] MEDS: MELATONIN 10 MG TABLET PO (21:10)
[2025-06-27 21:19] VITALS: PULSE 74; O2SAT 95
[2025-06-28 06:45] LABS: Hematocrit 28.4 % (37-47); Hemoglobin 8.9 g/dL (12.0-15.0)
[2025-06-28 09:13] VITALS: BP 145/65; PULSE 79; RESP 17; TEMP 36.5; O2SAT 96
[2025-06-28] MEDS: APIXABAN 2.5 MG TABLET (WCH) PO ×2 (09:26→22:09)
[2025-06-28] MEDS: Senna/Docusate Sodium 1 Tablet 2 TABLET PO (09:27)
--- NOTE | 2025-06-28 11:01 | NURSING ---
Offered covid vaccine, VIS provided. Resident declines.
[2025-06-28 16:47] VITALS: PULSE 67; RESP 16; O2SAT 97
[2025-06-28] MEDS: Mineral Oil/Petrolatum Cr 1.75oz Bottle 1 APPLIC TOPICAL (22:08)
[2025-06-28] MEDS: MELATONIN 10 MG TABLET PO (22:10)
[2025-06-28 22:24] VITALS: PULSE 74; O2SAT 97
[2025-06-29 08:45] VITALS: BP 135/56; PULSE 78; RESP 18; TEMP 37; O2SAT 96
[2025-06-29] MEDS: Senna/Docusate Sodium 1 Tablet 2 TABLET PO ×2 (08:49→21:35)
[2025-06-29] MEDS: APIXABAN 2.5 MG TABLET (WCH) PO ×2 (08:49→21:33)
[2025-06-29 14:37] VITALS: BMI 32.8
--- NOTE | 2025-06-29 16:04 | CHAPLAIN ---
Type of Pastoral Visit _x__ Initial Visit ___ Follow-up Visit ___ On-call Visit ___ General Patient Visit ___ Spiritual Assessment ___ Family Conference ___ Bereavement ___ Rapid Response ___ Code Blue ___ Other (describe below) Pastoral Care Referral From _x__ Patient ___ Family ___ Nurse ___ Physician ___ Rejected Items Clerk ___ Toll Ticket Clerk ___ Other (describe below) Sacrament/Intervention _x__ Active listening ___ Anointing ___ Congregational ___ Bereavement ___ Communion _x__ Zora exploration ___ _x__ Life review _x__ Prayer ___ Reconciliation ___ Sacrament of Sick _x__ Supportive presence ___ Wedding ___ Other (describe below) Pastoral Comments at first patient is focused on her pain and discomfort after surgery; pt is a bit pessimistic in tone; however as patient speaks more about her life she reveals her zora in God and His plans; pt has support from a good friend and her ex ; pt opens up about her relationships and becomes more positive in attitude as she gives more details that are hopeful; pt looks forward to getting back to [place] and volunteering for service to others; prayer welcomed
[2025-06-29] MEDS: Mineral Oil/Petrolatum Cr 1.75oz Bottle 1 APPLIC TOPICAL (21:29)
[2025-06-29] MEDS: MELATONIN 10 MG TABLET PO (21:32)
[2025-06-29 21:49] VITALS: PULSE 68; O2SAT 97
[2025-06-30 06:21] VITALS: PULSE 68; O2SAT 97
[2025-06-30] MEDS: APIXABAN 2.5 MG TABLET (WCH) PO ×2 (09:28→21:59)
--- NOTE | 2025-06-30 10:02 | CASEMGMT ---
Social Work IDT met with patient, ex- and friend for care plan meeting. Discussed patient's progress in PT/OT/ST/SN/RDN. Educated to [facility] insurance with NRD 07/02, EDC 07/07; day 21: 07/14. Provided pt/family with written communication of insurance process and copay coverage during stay. ST educated to cognitive impairment and scoring recommends 24/ supervision. Pt lives alone. Pt does not have Medicaid CM. SW offered to place referral to [facility] to complete assessment on assistance at home for CARE TECHNICIAN, MOW, transportation, medical alert, etc. Pt agreed. SW placed Care Coordination referral via website. Pt currently needs assistance with ADLs and IADLs. IDT recommending alternative DC plan until pt can return to independent LOF and family oversee meds/finances. Pt agreed she could not complete those tasks and be okay at home. SW educated to SNF INN with [facility] Medicaid benefit. Pt/family interested in that option prior to home. SW provided each constitution party a list of SNFs in preferred geographical area, INN with pt?s insurance, including quality and resource data via CarePort Guide. SW observed pt behaviors, presentation and orientation closer to baseline. SW will continue to follow for DC planning. Theodora Cook WOOD SCRAP HANDLER CAP SEWER
--- NOTE | 2025-06-30 11:32 | CASEMGMT ---
Social Work SW received call from Jayna at [facility]. Pt has [place] Medicaid and would be elgiible for the free assessment to apply for PASSPORT. SW answered questions and nurse credit collections analyst will contact pt within a week to schedule for services. Theodora Cook MSW PLATFORM OPERATIONS DIRECTOR
[2025-06-30] MEDS: Doxepin Hydrochloride 10 MG Capsule PO (22:02)
[2025-06-30] MEDS: Mineral Oil/Petrolatum Cr 1.75oz Bottle 1 APPLIC TOPICAL (22:03)
[2025-07-01 06:22] VITALS: O2SAT 95
[2025-07-01 07:02] VITALS: O2SAT 95
[2025-07-01 08:25] VITALS: BP 144/62; PULSE 80; RESP 20; TEMP 36.6; O2SAT 96
[2025-07-01] MEDS: APIXABAN 2.5 MG TABLET (WCH) PO ×2 (08:31→20:11)
[2025-07-01] MEDS: Senna/Docusate Sodium 1 Tablet 2 TABLET PO ×2 (08:33→20:11)
--- NOTE | 2025-07-01 15:17 | CASEMGMT ---
Addendum entered by Theodora Cook 07/01/25 16:27: Received return call from Jude requesting a referral to [facility]. ALIDA sent via N(i)². Original Note: Social Work SW phoned ex- to inquire about DC plans. Jude questioned what is the DC date. ALIDA re-explained that this worker explained at the POC meeting yesterday that insurance update is tomorrow 07/02, and if they issue a DC date, it could be 11/3. Jude replied, Oh I didn't know that. ALIDA reminded Jude of the verbal and written explanation of insurance coverage at the POC meeting. Jude stated he thought the DC date was 11/5. ALIDA again reiterated the insurance provided an anticipated DC noel of /5, but as ALIDA explained in the POC meeting, the insurance could issue a DC earlier or later, but a 3-day notice would be given, thus with the insurance update 07/02, the DC date could be 11/3. ALIDA requested having a DC plan in place to prepare for DC. Jude stated he will let Blanca know as she handles these things better. ALIDA requested contact tomorrow with plans and offered to answer questions. Jude expressed understanding. ALIDA will continue to follow. Theodora Cook ASSEMBLY LINE ROBOT OPERATOR PRODUCT AMBASSADOR
--- NOTE | 2025-07-01 16:28 | CASEMGMT ---
Social Work SW completed BIMS (05/17) and PHQ-2 () for MDS assessment. Theodora Cook ATHLETIC SHOE DESIGNER ACCOUNT AUDITOR
[2025-07-01] MEDS: Mineral Oil/Petrolatum Cr 1.75oz Bottle 1 APPLIC TOPICAL (20:13)
[2025-07-01] MEDS: Doxepin Hydrochloride 10 MG Capsule PO (20:13)
[2025-07-02 07:28] LABS: Hematocrit 29.2 % (37-47); Hemoglobin 9.1 g/dL (12.0-15.0); Immature Granulocytes Count 0.070 X10^3/uL (0.0-0.0); Mean Corp Hgb Conc 31.2 g/dL (32-36); Mean Corpuscular Volume 87.4 fL (81-99); Mean Platelet Vol. 9.5 fl (6.2-12.0); NRBC Flagged by Analyzer 0 % (0-5); Platelet Count 405 K/mm3 (150-450); RBC Distribution Width CV 14.2 % (11.6-14.6); RBC Distribution Width SD 45.2 fl (35.1-43.9); Red Blood Count 3.34 M/mm3 (4.2-5.4); White Blood Count 6.6 K/mm3 (4.4-11.0)
[2025-07-02 08:23] LABS: Anion Gap 9 (5-15); BUN 16 mg/dL (4-19); BUN/Creat Ratio 23.8 RATIO (10-20); Calcium,Total 9.6 mg/dL (7.6-11.0); Carbon Dioxide 25.7 mmol/L (21.0-32.0); Chloride 104 mmol/L (98-108); Estimated Creatinine Clearance 66.73 ml/min (50-250); Glucose 134 mg/dL (70-99); Potassium 4.7 mmol/L (3.3-5.1)
--- NOTE | 2025-07-02 08:44 | NURSING ---
Wander guard discontinued, removed from ankle. Resident has called for assistance with all ambulation and has not made any comments about wanting to leave the unit.
[2025-07-02 09:06] VITALS: BP 137/63; PULSE 87; RESP 17; TEMP 36.3; O2SAT 97
[2025-07-02] MEDS: APIXABAN 2.5 MG TABLET (WCH) PO ×2 (09:14→21:34)
[2025-07-02] MEDS: Senna/Docusate Sodium 1 Tablet 2 TABLET PO ×2 (09:15→21:37)
--- NOTE | 2025-07-02 09:17 | NURSING ---
Roller Checker Note, MDS for 07/01/2025 Complete
--- NOTE | 2025-07-02 11:50 | CASEMGMT ---
Social Work Insurance approved with NRD 07/07. [facility] can accept, but pt must be wanderguard free for 24 hrs. SW updated nurse and it was discontinued this morning. SW update [facility] on that and NRD 07/17. SW phoned the ex- to update on [facility] acceptance and NRD. Will continue to follow. Theodora Cook INFORMATION CLERK AUTOMOBILE CLUB INSTRUMENT WORKER
[2025-07-02] MEDS: Tuberculin,Purif.prot.deriv. 50 TU/ML Vial 0.1 ML ID (12:55)
[2025-07-02] MEDS: Doxepin Hydrochloride 10 MG Capsule PO (21:34)
[2025-07-02] MEDS: Mineral Oil/Petrolatum Cr 1.75oz Bottle 1 APPLIC TOPICAL (21:38)
[2025-07-03] MEDS: APIXABAN 2.5 MG TABLET (WCH) PO ×2 (08:50→21:41)
[2025-07-03 09:58] VITALS: BP 135/88; PULSE 82; RESP 16; TEMP 36.6; O2SAT 98
[2025-07-03] MEDS: Mineral Oil/Petrolatum Cr 1.75oz Bottle 1 APPLIC TOPICAL (21:39)
[2025-07-03] MEDS: Doxepin Hydrochloride 10 MG Capsule PO (21:43)
[2025-07-04 07:30] VITALS: O2SAT 97
[2025-07-04 08:08] VITALS: BP 145/65; PULSE 70; RESP 17; TEMP 36.5; O2SAT 97
[2025-07-04] MEDS: APIXABAN 2.5 MG TABLET (WCH) PO ×2 (08:12→21:01)
[2025-07-04] MEDS: Mineral Oil/Petrolatum Cr 1.75oz Bottle 1 APPLIC TOPICAL (21:00)
[2025-07-04] MEDS: Doxepin Hydrochloride 10 MG Capsule PO (22:49)
[2025-07-05] MEDS: APIXABAN 2.5 MG TABLET (WCH) PO ×2 (08:33→22:49)
[2025-07-05] MEDS: Senna/Docusate Sodium 1 Tablet 2 TABLET PO ×2 (08:47→22:56)
[2025-07-05 09:55] VITALS: BP 140/78; PULSE 85; RESP 16; TEMP 36.6; O2SAT 97
[2025-07-05 10:01] VITALS: O2SAT 94
--- NOTE | 2025-07-05 13:24 | MDS.RN ---
Information for the MDS was obtained from review of the clinical record, interview of resident, staff, and direct observation of resident?s care.
--- NOTE | 2025-07-05 19:26 | NURSING ---
Dr. Blanchard office contacted regarding F/U appt. His nurse states Dr. Blanchard will come to [facility] 07/06 to see patient and that office appt will be cancelled.
[2025-07-05] MEDS: Doxepin Hydrochloride 10 MG Capsule PO (22:49)
[2025-07-05] MEDS: Mineral Oil/Petrolatum Cr 1.75oz Bottle 1 APPLIC TOPICAL (22:49)
[2025-07-06] MEDS: APIXABAN 2.5 MG TABLET (WCH) PO ×2 (08:19→21:48)
[2025-07-06 09:00] VITALS: BP 136/94; PULSE 84; RESP 16; TEMP 36.6; O2SAT 97
--- NOTE | 2025-07-06 10:53 | PCM.PN.ORT ---
Subjective Subjective seen and examined doing ok. having some cintron pain but not calf. no fever chills nausea vomiting sob or cp Objective Data Objective Data Vital Signs: Vital Signs Temp Pulse Resp BP Pulse Ox O2 Del Method O2 Flow Rate 97.9 F 84 16 136/94 H 97 Room Air 2 07/06/25 09:00 07/06/25 09:00 07/06/25 09:00 07/06/25 09:00 07/06/25 09:00 07/06/25 09:00 06/29/25 21:49 Oxygen Flow Rate (L/min) 2 Oxygen Delivery Method Room Air Weight: 191 lb 1.6 oz Body Mass Index (BMI) 32.8 Intake & Output: Intake and Output for Last 24 Hours 07/04/25 07/05/25 07/06/25 22:59 23:59 23:59 Intake Total 1080 / 1080 836 / 836 240 / 240 Balance 1080 / 1080 836 / 836 240 / 240 Lab / Micro Data 07/02/25 06:55 07/02/25 06:55 Micro: Microbiology 06/24/25 16:40 Urine, Catheterized Urine Culture - Final Culture exhibits no growth. Physical Exam Const alert, oriented x3 and no apparent distress General Appearance: cooperative Extremity Extremity Narrative: right hip incisions look good well approximated no sign of infection or dvt RLE NVI RLE - homans no significant swelling in leg Assessment & Plan Assessment/Plan (1) S/P total hip arthroplasty: QUALIFIERS: Laterality: right Qualified Code(s): Z96.641 - Presence of right artificial hip joint PLAN: Plan 2 wk po right FRANCI continue blood thinner for three weeks post op from orthopedic standpoint. mack can be removed and nursing was notified continue to wash incision daily f/u in the office in 4 weeks or sooner if there is a concern.
--- NOTE | 2025-07-06 11:57 | NURSING ---
Dr. Blanchard up to see patient and states mack can come out today. Patient made aware and 18 mack are removed from right hip and steri strips placed. Incision is well approximated with no drainage or redness. Small amount of swelling to right hip. Patient tolerated well.
[2025-07-06 14:00] VITALS: BMI 31.8
[2025-07-06] MEDS: Mineral Oil/Petrolatum Cr 1.75oz Bottle 1 APPLIC TOPICAL (21:47)
[2025-07-06] MEDS: Doxepin Hydrochloride 10 MG Capsule PO (21:49)
[2025-07-07 08:48] VITALS: BP 106/58; PULSE 77; RESP 18; TEMP 36.4; O2SAT 93
[2025-07-07] MEDS: APIXABAN 2.5 MG TABLET (WCH) PO ×2 (08:50→21:39)
--- NOTE | 2025-07-07 11:57 | CASEMGMT ---
Social Work Insurance issued LCD 07/09, DC 07/10 SW spoke with pt at bedside. SW provided NOMNC to pt and educated to appeal rights. Pt verbalized understanding and denied appeal. SW inquired about DC to [facility]. Pt confirmed and requested this worker contact ex-. SW agreed as ex- and friend has been assisting with DC plans. Pt stated she will contact him to notify of the DC date as well. - SW phoned ex- to update on DC date. ex- inquired about plan and if DC can be extended. SW educated to appeal right options. Ex- requested to meet with this worker in person to discuss as he has a lot of questions. SW agreed and scheduled for this date at 1530. SW will follow. Theodora Cook MSW GROCERY BAGGER
--- NOTE | 2025-07-07 12:57 | CASEMGMT ---
Social Work SW received phone call from Janice at the [facility]. Janice states that the Medicaid specialist at the [facility] spoke with pt's ex regarding payment for LTC at the [facility]. Pt has [place] Medicaid only (not LTC medicaid), therefore pt will be going to the [facility] as Medicaid pending. When this was explained to pt's ex , he informed [facility] that he did not want to give up pt's money to cover pt liability and would instead take pt home. Pt's ex would not provide the [facility] with a bank statement to verify pt's finances and Medicaid eligibility. Due to this, [facility] is not able to accept. If Pt's ex changes his mind and is willing to provide needed financial information, [facility] would reconsider accepting. KEMAR Yip updated. S KEMAR Hernandez
--- NOTE | 2025-07-07 16:27 | CASEMGMT ---
Addendum entered by Theodora Cook 07/07/25 17:22: Received call from Jude with appeal . Received fax with medical records request. Sent to HIM to process. Original Note: Social Work ALIDA met with patient's ex- Jude and friend, Blanca. Answered questions. Explained appeal rights and instructions. Jude plans to appeal. Both had additional questions on Medicaid and patient liability. ALIDA deferred back to Joaquina, Medicaid Specialist at [facility]. There is a phone meeting scheduled with Joaquina, Jude and Blanca tomorrow about 1030. Once those questions are answered, Jude and Blanca to make determination on DC plan. They both want pt to return home and concerned about patient being able to pay for patient liability. They explained ideas like having cameras in the apt, installing a medical alert, getting MOW and an automated pill dispenser. ALIDA confirmed those are great resources, but noted those are reactive, not being proactive with the pt's needs. Reiterated the impairment with pt's cognition and the safety of problem solving accurately living alone. ALIDA explained once PASSPORT is in place, the pt could receive those services covered by [facility], along with [facility] [employer]. Blanca stated pt's July bills are paid for already and patient liability will be prorated for the rest of the Nov. Considering having pt admit to [facility] for the month of July, then DC home. ALIDA agreed to plan, offering PASSPORT should be further along at that time. ALIDA explained pt/family can choose DC plan regardless of recommendations, and this worker will assist with either plan. Educated if pt DCs home, ALIDA can coordinate skilled HHC with PT/OT/ST/SN/REEVES/SW. Jude appreciative of that. ALIDA concluded meeting with Jude filing the appeal, and Jude/Blanca making a DC decision after meeting with Joaquina tomorrow morning. Jude to notify this worker after both are completed. Both appreciative of this worker's assistance. ALIDA will continue to follow for DC planning. Plan: DC 07/10, pending appeal, destination and needs TBD Theodora Cook BIOPHARMACEUTICAL REP CARPET JOURNEYMAN
--- NOTE | 2025-07-07 21:33 | PCM.DC.SUM ---
Providers Date of Admission: 06/24/25 Primary Care Physician: SHARDA Marcum Reason For Visit: R TOTAL HIP/ ROBOTIC ARM PRODUCT CONTROL AND LOGISTICS ANALYST Diagnosis Discharge Diagnosis (1) S/P total hip arthroplasty: Status: Acute Code(s): Z96.649 - Presence of unspecified artificial hip joint Qualifiers: Laterality: right Qualified Code(s): Z96.641 - Presence of right artificial hip joint Plan 75 year old female with below past medical history underwent right total hip arthroplasty 06/22/[address] Blanchard, postoperative course complicated by encephalopathy, admitted to TCU with debility, here for rehabililtation, strengthening, prior to discharge home alone. Debility - PT/OT. Pain - Tylenol 1000mg q6, Oxycodone 5mg po q4 prn pain (1-10). Bowel - senna/colace 2 tablets bid, Magnesium citrate 300mL daily prn. Adult immunization - Administer pneumonia vaccine, covid vaccine, flu vaccine as appropriate. DVT prophylaxis - Eliquis 2.5mg bid thru 07/15/2025. Hypertension - Propranolol 120mg daily, Ramipril 5mg daily, Amlodipine 10mg daily. Stroke - Aspirin 81mg daily starting 07/16/2025. Hyperlipidemia - Atorvastatin 40mg qhs. Indigestion - Calcium 1000mg daily. Allergic rhinitis - Loratadine 10mg qhs prn. Skin irritation - Calmoseptine topical bid, Aquaphor topical qhs. Tinea Corporis - Nystatin topical tid. Asthma - Singulair 10mg qhs. Nutrition - MVI 1 tablet daily. GERD - Pantoprazole 40mg daily. The following psychotropic medication was present on admission: Sertraline 100mg daily. Psychotropic medication therapy is indicated for a diagnosis of: Major Depression. Based on my clinical evaluation, continuation of the medication is necessary at this time. Gradual dose reduction plan (select one): ____ GDR will be attempted. Will monitor patient symptoms and behaviors in response to GDR. __x__ GRD contraindicated. Reason contraindicated: stable chronic custodial use. Medications at Discharge Home Medications multivitamin (Daily Multiple tablet) 1 ea PO DAILY supplement 08/22/15 handicap placard #1 ea 11/20/23 Rollator walker with brakes #1 ea 05/19/24 blood pressure monitor (Blood Pressure Kit) #1 ea 05/19/24 sertraline 100 mg tablet 100 mg PO DAILY DEPRESSION #90 tabs 02/10/25 propranolol 120 mg capsule,24 hr,extended release 120 mg PO DAILY BP #90 caps 02/23/25 aspirin 81 mg chewable tablet 81 mg PO QDAY HEART HEALTH 04/22/25 atorvastatin 40 mg tablet 40 mg PO QHS HDL #90 tabs 04/26/25 amlodipine 5 mg tablet 10 mg (2 x 5 mg) PO DAILY BP 90 days #180 tabs 05/07/25 montelukast 10 mg tablet (Singulair) 10 mg PO QHS asthma #90 tabs 06/02/25 ramipril 5 mg capsule 5 mg PO QDAY BP #90 caps 06/02/25 acetaminophen 500 mg tablet 1,000 mg (2 x 500 mg) PO Q8 #0 tabs 07/07/25 apixaban 5 mg tablet (Eliquis) 2.5 mg (1/2 x 5 mg) PO BID 5 days #5 tabs 07/07/25 oxycodone 5 mg tablet 5 mg PO Q4H PRN PRN Pain Score 1-10 7 days #42 tabs 07/07/25 pantoprazole 40 mg tablet,delayed release 40 mg PO DAILY 30 days #30 tabs 07/07/25 sennosides 8.6 mg-docusate sodium 50 mg tablet (Stimulant Laxative Plus) 2 tab PO BID 30 days #120 tabs 07/07/25 Hospital Course Operations total hip replacement (Right.) Procedures None Summary of Care Provided Minutes Spent on Discharge: 35 Hospital Course: 75 year old female with below past medical history underwent right total hip arthroplasty 06/22/[address] Blanchard, postoperative course complicated by encephalopathy, admitted to TCU with debility, here for rehabililtation, strengthening, prior to discharge home alone. Discharge 07/10/2025, pending appeal, destination and needs TBD. Physical Exam Const alert General Appearance: cooperative HEENT normocephalic Eyes PERRL and EOMs intact bilaterally Neck supple, no JVD and no carotid bruits Resp normal respiratory effort, normal air movement and clear to auscultation bilaterally Cardio regular rate and regular rhythm GI normal to inspection, nondistended, normoactive bowel sounds, non-tender and non-distended Extremity normal capillary refill General Extremity: Negative for edema Skin no rashes or lesions noted General Skin Exam: no breakdown Psych affect normal Appearance: appropriate Weight / BMI Weight Weight: 84.113 kg Body Mass Index (BMI) 31.8 ABG / Lab / Microbiology Data 07/02/25 06:55 07/02/25 06:55 Microbiology: Microbiology 06/24/25 16:40 Urine, Catheterized Urine Culture - Final Culture exhibits no growth. D/C Instructions Discharge Activity: Return to Normal Activity, May Shower and Use Walker Weight Bearing Status: Weight bearing as tolerated Call your doctor if you observe: Fever of 101 or Higher, Inability to urinate, Inability to have a bowel movement, Shortness of breath, Dizziness, Fainting spells, Swelling in the ankles, Chest pain and Uncontrolled pain DC O2, CPAP, BIPAP Needs Home O2 Discharge instructions: No Additional Instructions: Discharge 07/10/2025, pending appeal, destination and needs TBD. Please Follow Up With: Santo When: As scheduled. Meaningful Use Info Meaningful Use Meaningful Use Diagnoses (Choose all that apply): None applicable Discharge Plan Admission Admit Date/Time: 06/24/25 14:11 Primary Reason for Your Visit: Debility. Attending Provider: Mick Guerrero Chi Primary Care Provider: Geovanny Taylor Instructions Additional Instructions / Restrictions: Discharge 07/10/2025, pending appeal, destination and needs TBD. Discharge Orders/Prescriptions Prescriptions: New sennosides-docusate sodium [Stimulant Laxative Plus] 8.6-50 mg Tablet 2 tab PO BID 30 Days Qty: 120 0RF acetaminophen 500 mg Tablet 1,000 mg PO Q8 Qty: 0 0RF pantoprazole 40 mg Tablet,Delayed Release (Dr/Ec) 40 mg PO DAILY 30 Days Qty: 30 0RF oxycodone 5 mg Tablet 5 mg PO Q4H PRN PRN (Reason: Pain Score 1-10) 7 Days Qty: 42 0RF Eliquis 5 mg Tablet 2.5 mg PO BID 5 Days Qty: 5 0RF Continued sertraline 100 mg tablet 100 mg PO DAILY Qty: 90 1RF aspirin 81 mg tablet,chewable 81 mg PO QDAY multivitamin [Daily Multiple] 1 EACH tablet 1 ea PO DAILY Patient Comments: Supplement propranolol 120 mg capsule,extended release 24 hr 120 mg PO DAILY Qty: 90 1RF atorvastatin 40 mg tablet 40 mg PO QHS Qty: 90 0RF amlodipine 5 mg tablet 10 mg PO DAILY 90 Days Qty: 180 1RF montelukast [Singulair] 10 mg tablet 10 mg PO QHS Qty: 90 1RF ramipril 5 mg capsule 5 mg PO QDAY Qty: 90 0RF Discontinued Zyrtec 10 mg capsule 10 mg PO QDAY PRN (Reason: ALLERGIES) calcium carbonate [Calcium 500] 500 mg calcium (1,250 mg) tablet,chewable 1,000 mg PO DAILY PRN (Reason: dyspepsia) pantoprazole 40 mg tablet,delayed release (DR/EC) 40 mg PO DAILY omeprazole magnesium [Prilosec OTC] 20 mg tablet,delayed release (DR/EC) 20 mg PO DAILY acetaminophen 500 mg tablet 1,000 mg PO Q6H Qty: 100 2RF Eliquis 2.5 mg tablet 2.5 mg PO BID Qty: 42 0RF oxycodone 5 mg tablet 5 - 10 mg PO Q6H PRN (Reason: pain) 7 Days Qty: 60 0RF nystatin 100,000 unit/gram powder 1 applic topical TID Qty: 60 3RF Rx Instructions: apply 10 min after application of cream No Action (DME) handicap placard See Rx Instructions .ROUTE .MEDSUPPLY Qty: 1 0RF Rx Instructions: Length of time: 5 years Diagnosis - Impaired physical mobility (z74.09) (DME) blood pressure monitor [Blood Pressure Kit] Kit See Rx Instructions .Route Qty: 1 0RF Rx Instructions: As directed (DME) Rollator walker with brakes See Rx Instructions .Route .MEDSUPPLY Qty: 1 0RF Rx Instructions: As directed Referrals / Follow Up: Dain Blanchard DO [Med Staff - Active Staff, Orthopedics] Referral Note: 6 week post-op follow-up Geovanny Taylor PA [Primary Care Provider, Internal Medicine] Disposition Disposition (needs filled in before D/C Order can be placed): Home Health Service
[2025-07-07] MEDS: Doxepin Hydrochloride 10 MG Capsule PO (21:38)
[2025-07-07] MEDS: Senna/Docusate Sodium 1 Tablet 2 TABLET PO (21:38)
[2025-07-07] MEDS: Mineral Oil/Petrolatum Cr 1.75oz Bottle 1 APPLIC TOPICAL (21:39)
[2025-07-08 03:11] VITALS: PULSE 77; RESP 16; O2SAT 98
[2025-07-08 07:33] VITALS: BP 124/77; PULSE 70; RESP 16; TEMP 36.1; O2SAT 96
[2025-07-08] MEDS: APIXABAN 2.5 MG TABLET (WCH) PO ×2 (07:36→21:53)
[2025-07-08] MEDS: Senna/Docusate Sodium 1 Tablet 2 TABLET PO (07:40)
--- NOTE | 2025-07-08 08:52 | CASEMGMT ---
Social Work SW received return email from [facility] stating they contacted the pt on 07/06 but pt denied assessment at that time. [facility] offered to contact [facility]. SW provided contact information as those services are critical to promote safety for pt returning home. - SW received DENC and delivered to pt. Theodora Cook MSW AIRLINE CAPTAIN
--- NOTE | 2025-07-08 11:09 | CASEMGMT ---
Addendum entered by Theodora Cook 07/08/25 16:35: Received HHC choices - [facility], [facility], [facility]. Referrals sent via [employer] Original Note: Social Work SW received call from Jude stating pt will not be discharged to [facility] for 4 reasons and provided those reasons. SW provided active listening. Voiced respecting Jude's choice for DC home and offered assistance for services in the home. Revisited skilled HHC and offered list of skilled HHC agencies within geographical area, [place] with insurance, that include quality and resource data via [employer] guide. Jude requested that list be sent to Blanca. ALIDA sent via [employer] text link. Jude requested a hospital bed. ALIDA to coordinate through [employer] and that will be delivered to the home once there is a confirmed DC date. ALIDA inquired who [employer] should contact for delivery - Jude confirmed himself. ALIDA updated Jude [facility]. Jude expressed great appreciation for assistance from this worker. - ALIDA sent referral to [employer] via [employer]. Plan: DC 07/10, pending appeal, home with HHC PT/OT/ST/SN/REEVES/ALIDA, hospital bed Theodora Cook ROAD WORKER BROADBAND INSTALLER
[2025-07-08] MEDS: Mineral Oil/Petrolatum Cr 1.75oz Bottle 1 APPLIC TOPICAL (21:53)
[2025-07-08] MEDS: Doxepin Hydrochloride 10 MG Capsule PO (21:54)
[2025-07-09 04:13] VITALS: PULSE 70; RESP 18; O2SAT 97
[2025-07-09 05:58] LABS: Hematocrit 29.1 % (37-47); Hemoglobin 8.9 g/dL (12.0-15.0); Immature Granulocytes Count 0.020 X10^3/uL (0.0-0.0); Mean Corp Hgb Conc 30.6 g/dL (32-36); Mean Corpuscular Volume 89.0 fL (81-99); Mean Platelet Vol. 10.0 fl (6.2-12.0); NRBC Flagged by Analyzer 0 % (0-5); Platelet Count 393 K/mm3 (150-450); RBC Distribution Width CV 14.3 % (11.6-14.6); RBC Distribution Width SD 46.5 fl (35.1-43.9); Red Blood Count 3.27 M/mm3 (4.2-5.4); White Blood Count 5.6 K/mm3 (4.4-11.0)
[2025-07-09 06:20] LABS: Anion Gap 10 (5-15); BUN 17 mg/dL (4-19); BUN/Creat Ratio 24.0 RATIO (10-20); Calcium,Total 9.3 mg/dL (7.6-11.0); Carbon Dioxide 24.1 mmol/L (21.0-32.0); Chloride 104 mmol/L (98-108); Estimated Creatinine Clearance 65.72 ml/min (50-250); Glucose 128 mg/dL (70-99); Potassium 4.6 mmol/L (3.3-5.1)
--- NOTE | 2025-07-09 09:33 | MDS.RN ---
Pain assessment for MDS complete.
[2025-07-09 09:45] VITALS: BP 119/57; PULSE 84; RESP 17; TEMP 36.3; O2SAT 96
[2025-07-09] MEDS: APIXABAN 2.5 MG TABLET (WCH) PO ×2 (09:49→21:54)
--- NOTE | 2025-07-09 10:38 | CASEMGMT ---
Addendum entered by Theodora Cook 07/09/25 12:41: [facility] cannot accept pt's insurance. [facility] can accept and pt will be contacted for SOC. ALIDA updated Blanca. Blanca appreciative. Addendum entered by Theodora Cook 07/09/25 11:40: [facility] cannot accept d/t staffing. ALIDA phoned Blanca to follow up HHC. Reviewed list of options - Blanca chose [facility] and [facility]. Referrals made via [facility] to [facility]. Phoned referral to [facility]. Original Note: Social Work Received fax notification that pt lost her appeal. Shortly after, received call from Jude, who received that notification as well. Discussed finalizing DC plans home tomorrow. ALIDA inquired about the [facility] assessment. Jude stated the assessment is scheduled for 07/12, but if approved for services, those would not be active for 30-90 days. ALIDA reiterated prior notation that those services would take time to implement and would not be available at time of DC. Jude inquired about skilled HHC. ALIDA updated that Blanca made the selections: [facility] does not have availability, [facility] cannot accept. ALIDA did follow up with [facility] on acceptance. If they cannot accept, ALIDA will reach out to Blanca for additional HHC options. Jude appreciative. Jude inquired about DME delivery and requesting to add a 3-in-1 commode. ALIDA to update [employer] with the loss of the appeal and [facility] will contact Jude to schedule delivery. ALIDA will update on [facility] need. Jude will transport pt at 1100 tomorrow. Plan: DC home alone 07/10 Theodora Cook UNDER WATER ASSISTANT SHIPPING HELPER
[2025-07-09] MEDS: Mineral Oil/Petrolatum Cr 1.75oz Bottle 1 APPLIC TOPICAL (21:49)
[2025-07-09] MEDS: Doxepin Hydrochloride 10 MG Capsule PO (21:57)
[2025-07-10 03:36] VITALS: PULSE 78; O2SAT 98
[2025-07-10 09:18] VITALS: BP 147/61; PULSE 77; RESP 18; TEMP 36.1; O2SAT 98
[2025-07-10] MEDS: APIXABAN 2.5 MG TABLET (WCH) PO (09:21)
[2025-07-10] MEDS: Senna/Docusate Sodium 1 Tablet 2 TABLET PO (09:26)
[2025-07-10 12:45] VITALS: BP 120/69; PULSE 75; RESP 18; TEMP 36.2; O2SAT 98
== END 2025-07-10 12:45 | disposition home health service (06) | DRG 561 ==
PROVIDERS: Admitting Provider Family Medicine Geriatric Medicine; PCP Physician Assistant; Visit Provider Family Medicine Geriatric Medicine
DX: Z47.1 Aftercare following joint replacement surgery (principal); B35.4 Tinea corporis; F31.9 Bipolar disorder, unspecified; J45.909 Unspecified asthma, uncomplicated; E78.00 Pure hypercholesterolemia, unspecified; I10 Essential (primary) hypertension; G47.33 Obstructive sleep apnea (adult) (pediatric); K21.9 Gastro-esophageal reflux disease without esophagitis; Z96.641 Presence of right artificial hip joint; Z79.899 Other long term (current) drug therapy; Z79.82 Long term (current) use of aspirin; G47.00 Insomnia, unspecified
CPT/HCPCS: 36415; 71046; 73502; 80048; 81001; 85014; 85018; 85025; 87086; 92507; 92523; 97110; 97116; 97162; 97166; 97530; 97535; 97802

== ENCOUNTER → 2025-06-25 | Outpatient (CLI) | payer MEDICARE, MEDICAID, SELFPAY ==
--- NOTE | 2025-06-25 09:31 | CT_ITS ---
PROCEDURE: BRAIN/HEAD WITHOUT CONTRAST 06/25/2025 REASON FOR EXAM: MENTAL STATUS TECHNIQUE: Procedure Code: CTBR Modality: CT Procedure: BRAIN/HEAD WITHOUT CONTRAST Coronal and Sagittal reconstruction series were provided. One or more dose reduction techniques were used (e.g., Automated exposure control, adjustment of the mA and/or kV according to patient size, use of iterative reconstruction technique. RADIATION DOSE SUMMARY: DLP: 796 mGycm COMPARISON: 03/29/22 FINDINGS: There is no acute infarct, intracranial hemorrhage, or mass effect. There is no hydrocephalus or significant midline shift. There is mild chronic microvascular ischemic changes and mild parenchymal volume loss. No acute, depressed calvarial fractures. No large scalp hematomas. The paranasal sinuses are clear. CT/Brain/Head without Contrast IMPRESSION: No acute intracranial process. Reading Location: [id number]
== END | disposition home or self-care (01) ==
PROVIDERS: PCP Physician Assistant; Referring Provider Family Medicine Geriatric Medicine; Visit Provider Family Medicine Geriatric Medicine
DX: R41.82 Altered mental status, unspecified (principal)
CPT/HCPCS: 70450